=== PATIENT | male | born 1960 | race African-American/Black ===

== ENCOUNTER 2017-11-13 15:19 | Inpatient (IN) | payer MEDICAID ==
[~2017-11-13] VITALS: Ht 177.8 cm; Wt 88.5 kg
--- NOTE | 2017-11-13 15:30 | NUR ---
FRED SENT FROM [facility] FOR ELEVATED WBC AND LOW SODIUM. PATIENT PRESENTS ALTERED, TRACH DEPENDENT ON 5L OXYGEN VIA COOL AEROSOL. HAS FEVER OF 100.4 RECTALLY. PATIENT TACHYCARDIC. SAFETY AND COMFORT MEASURES IN PLACE. MD AT BEDSIDE FOR EVAL.
--- NOTE | 2017-11-13 15:50 | NUR ---
NEW IV STARTED ON LAC, 20 G WITH US GUIDANCE.
--- NOTE | 2017-11-13 15:55 | NUR ---
BLOOD DRAWN AND SENT TO LAB.
[2017-11-13] MEDS ORDERED: IV NS 0.9% 1,000 ML BAG IV ONE ×2 (16:00→17:00)
[2017-11-13 16:01] LABS: BASOPHILS # (AUTO) 0.1 /CMM (0.0-0.2); BASOPHILS % (AUTO) 0.2 % (0.0-2.0); EOSINOPHILS # (AUTO) 0.2 /CMM (0.0-0.7); EOSINOPHILS % (AUTO) 0.8 % (0.0-6.0); HEMATOCRIT 33 % (39-51); HEMOGLOBIN 11.5 g/dL (13.5-17.5); LYMPHOCYTES # (AUTO) 1.7 /CMM (0.8-4.8); LYMPHOCYTES % (AUTO) 6.4 % (20.0-44.0); MEAN CORPUSCULAR HEMOGLOBIN 29 PG (26.0-33.0); MEAN CORPUSCULAR HGB CONC 34 g/dl (31.0-36.0); MEAN CORPUSCULAR VOLUME 85 fL (80-96); MONOCYTES # (AUTO) 3.1 /CMM (0.1-1.30); MONOCYTES % (AUTO) 11.4 % (2.0-12.0); NEUTROPHILS % (AUTO) 81.2 % (43.0-81.0); PLATELET COUNT (AUTO) 527 /CMM (150-450); RDW COEFFICIENT OF VARIATION 15.2 (11.5-15.0); RED BLOOD CELL COUNT(AUTO) 3.92 MIL/uL (4.5-6.0); WHITE BLOOD COUNT (AUTO) 27.1 K/uL (4.3-11.0)
[2017-11-13 16:16] LABS: ALANINE AMINOTRANSFERASE 19 U/L (12-78); ALKALINE PHOSPHATASE 166 U/L (46-116); ASPARTATE AMINOTRANSFERASE 29 U/L (15-37); BILIRUBIN,DIRECT 0.2 mg/dL (0.0-0.2); BILIRUBIN,TOTAL 0.4 mg/dL (0.2-1.0); CALCIUM, SERUM 9.7 mg/dL (8.5-10.1); CARBON DIOXIDE 25 mmol/L (21-32); CHLORIDE 82 mmol/L (98-107); CREATININE 1.4 mg/dL (0.6-1.3); GLUCOSE 162 mg/dL (74-106); LIPASE 73 U/L (73-393); POTASSIUM 4.8 mmol/L (3.5-5.1); TOTAL PROTEIN, SERUM 8.9 g/dL (6.4-8.2); UREA NITROGEN, BLOOD 78 mg/dL (7-18)
[2017-11-13 16:17] LABS: SODIUM SERUM 119 mmol/L (136-145); TROPONIN I < 0.017 ng/mL (0.00-0.056)
[2017-11-13 17:00] LABS: APPEARANCE,URINE SL CLOUDY (CLEAR); BILIRUBIN,URINE NEGATIVE (NEGATIVE); BLOOD, URINE NEGATIVE Ery/uL (NEGATIVE); COLOR,URINE YELLOW (YELLOW); KETONES,URINE NEGATIVE (NEGATIVE); LEUKOCYTE ESTERASE ,URINE NEGATIVE (NEGATIVE); NITRITE, URINE NEGATIVE (NEGATIVE); PROTEIN,URINE 2+ mg/dl (NEGATIVE); UGLUCOSE NEGATIVE (NEGATIVE); UROBILINOGEN,URINE 0.2 EU/dL (0.2)
[2017-11-13] MEDS ORDERED: ACETAMINOPHEN 325 MG TABLET MC ONE (17:00)
[2017-11-13] MEDS ORDERED: PIPERACILLIN /TAZOBACTAM 3.375 G in IV D5W 50 ML IV ONE (17:00)
[2017-11-13] MEDS ORDERED: VANCOMYCIN 1 GM in IV D5W 250 ML IV ONE (17:00)
--- NOTE | 2017-11-13 17:00 | NUR ---
PER DR. GAVIN, BOLUS TOTAL OF 2500ML OF NS. ONLY 1500 ML MORE GIVEN ON TOP OF ORIGINAL 1L.
[2017-11-13] MEDS ORDERED: ACETAMINOPHEN ES 500 MG TABLET ONE (17:19)
[2017-11-13 17:23] LABS: BACTERIA,URINE None seen /HPF (None Seen); SQUAMOUS EPITHELIAL CELL,UR Rare /HPF (None Seen); WBC,URINE 0-2 /HPF (0-3)
[2017-11-13] MEDS ORDERED: ALBU2.5V38 IH ×2 (17:25)
[2017-11-13] MEDS ORDERED: IPRA0.2S9 IH ×2 (17:25)
[2017-11-13] MEDS ORDERED: ACET325T53 GT ×2 (17:25)
[2017-11-13] MEDS ORDERED: CLON0.3T PO (17:38)
[2017-11-13] MEDS ORDERED: MAGN400O6 GT (17:38)
[2017-11-13] MEDS ORDERED: VALP250S22 GT (17:38)
[2017-11-13] MEDS ORDERED: HEPA50007 SQ (17:38)
[2017-11-13] MEDS ORDERED: METO100T14 GT (17:38)
[2017-11-13] MEDS ORDERED: BISA10SU61 RC (17:38)
[2017-11-13] MEDS ORDERED: CALC-261 GT (17:38)
[2017-11-13] MEDS ORDERED: NA P133E RC (17:38)
[2017-11-13] MEDS ORDERED: INSU300I SQ (17:46)
[2017-11-13] MEDS ORDERED: CRAN3875 GT (17:46)
[2017-11-13] MEDS ORDERED: ESOM20CA GT (17:46)
[2017-11-13] MEDS ORDERED: MULT-213 GT (17:46)
[2017-11-13] MEDS ORDERED: HYDROMORPHONE INJ 0.5 MG/0.5 ML SYRINGE ONE (18:27)
--- NOTE | 2017-11-13 19:16 | NUR ---
REPORT GIVEN TO ZOHREH NICOLE FOR LIZETH.
--- NOTE | 2017-11-13 21:35 | NUR ---
DR GAVIN ON THE PHONE WITH GENERAL SURGERY DR ANDRIY ONOFRE
--- NOTE | 2017-11-13 21:39 | NUR ---
ONGOING ULTRASOUND AT BEDSIDE.
--- NOTE | 2017-11-13 21:50 | NUR ---
RECEIVED REPORT FROM ER NURSE ZOHREH, WILL RELAY TO PRIMARY NURSE
--- NOTE | 2017-11-13 21:50 | NUR ---
REPORT GIVEN TO HUMBERTO RN FOR ADMISSION AND LIZETH.
[2017-11-13 22:30] VITALS: BP 91/63
--- NOTE | 2017-11-13 22:30 | NUR ---
RN OPENING NOTE RECEIVED PATIENT FROM ER VIA GURNEY, SINUS TACHYCARDIA 156, OBTUNDED, ABLE TO CLOSE/OPEN EYES, BP 91/65, TEMPERATURE 98.6 F, SO2 100%, TRACH, ON FIO2 40%, OXUGEN 10 L/MIN, NO RESPIRATORY DISTRESS NOTED, ADMITTING DX: CHOLYSISTITIS, BS 175, PAGED DR MCKINLEY TO GET AN ORDER FOR SLIDING SCALE, ACCU CHECK, ALL PICTURES TAKEN AND PLACED IN THE CHART, LEFT FOREARM IV SITE NOTED, FLUSHES WELL NO S/S OF INFILTRATION, LAC MIDLINE IV SITE, NO S/S OF INFILTRATION NOTED, ON TELEMONITOR, ALL SAFETY MEASURES TAKEN , CALL LIGHT WITHIN REACH, ALL BELONGINGS WITHI REACH, SIDE RAILS UP X 2, BED ALARM ACTIVATED, WILL CONTINUE TO MONITOR PATIENT
--- NOTE | 2017-11-13 22:35 | NUR ---
TRANSFERRED PATIENT TO [facility] FLOOR VIA ALS PROTOCOL, NO INCIDENT NOTED.
[2017-11-13] MEDS ORDERED: HYDROMORPHONE 1 MG/1 ML DISP.SYRIN IV PRN (23:30)
[2017-11-13] MEDS ORDERED: IV 1/2NS 1000 ML 1,000 ML IV PRN (23:30)
[2017-11-13] MEDS ORDERED: ONDANSETRON HCL/PF 4 MG/2 ML VIAL IV PRN (23:30)
[2017-11-14] VITALS (7 sets, daily range): BP systolic 102–150; BP diastolic 52–74
[2017-11-14] MEDS ORDERED: PIPERACILLIN /TAZOBACTAM 3.375 G in IV D5W 100 ML IV ONE ×2
[2017-11-14] MEDS ORDERED: PIPERACILLIN /TAZOBACTAM 3.375 G VIAL IV ONE ×3 (00:33→05:22)
--- NOTE | 2017-11-14 03:32 | NUR ---
RN NOTE DR ONOFRE IS BY BEDSIDE, PLACED AN ORDER FOR CT SCAN GUIDED COLYSESTECTOMY, PER DR ONOFRE ENDORSE TO AM SHIFT TO OBTAIN CONSENT FOR PROCEDURE
[2017-11-14] MEDS ORDERED: DEXTROSE 50%-WATER 50 ML DISP.SYRIN IV PRN (04:30)
[2017-11-14] MEDS ORDERED: PIPERACILLIN /TAZOBACTAM 3.375 G in IV D5W 100 ML IV SCH ×3 (05:00)
[2017-11-14 05:24] LABS: EOSINOPHILS % (AUTO) 0.5 % (0.0-6.0); HEMATOCRIT 28 % (39-51); HEMOGLOBIN 9.5 g/dL (13.5-17.5); LYMPHOCYTES % (AUTO) 3.2 % (20.0-44.0); MEAN CORPUSCULAR HEMOGLOBIN 30 PG (26.0-33.0); MEAN CORPUSCULAR HGB CONC 34 g/dl (31.0-36.0); MEAN CORPUSCULAR VOLUME 87 fL (80-96); MONOCYTES % (AUTO) 10.5 % (2.0-12.0); NEUTROPHILS % (AUTO) 85.8 % (43.0-81.0); PLATELET COUNT (AUTO) 435 /CMM (150-450); RDW COEFFICIENT OF VARIATION 16.1 (11.5-15.0); RED BLOOD CELL COUNT(AUTO) 3.21 MIL/uL (4.5-6.0); WHITE BLOOD COUNT (AUTO) 20.9 K/uL (4.3-11.0)
[2017-11-14 05:25] LABS: EOSINOPHILS # (AUTO) 0.1 /CMM (0.0-0.7); LYMPHOCYTES # (AUTO) 0.7 /CMM (0.8-4.8); MONOCYTES # (AUTO) 2.2 /CMM (0.1-1.30); NEUTROPHILS # (AUTO) 17.9 /CMM (1.8-8.9)
[2017-11-14] MEDS: BLOOD SUGAR DIAGNOSTIC 1 EACH STRIP IN SCH ×4 (06:11→23:53)
--- NOTE | 2017-11-14 06:17 | NUR ---
RN NOTE BS 172, PATIENT IS NPO AND WILL BE HAVING PROCEDURE NO INSULIN AT THIS MOMENT, CHARGE NURSE IS AWARE
[2017-11-14 06:33] LABS: ALBUMIN 1.8 g/dL (3.4-5.0); BILIRUBIN,TOTAL 0.4 mg/dL (0.2-1.0); CREATININE 0.9 mg/dL (0.6-1.3); POTASSIUM 4.1 mmol/L (3.5-5.1); TOTAL PROTEIN, SERUM 7.9 g/dL (6.4-8.2)
--- NOTE | 2017-11-14 06:35 | NUR ---
RN CLOSING NOTE NO ACUTE CHANGES, STILL SINUS TACHYCARDIA WITH PVC'S AND PAC'S, DR ONOFRE SAW PATIENT EARLIER AND PLACED AN ORDER FOR CT GUIDED CHOLYCYCTECTOMY, PER DOCTOR JEMIMA ENDORSE TO OBTAIN CONSENTS TO AM SHIFT AND NOT TO WAKE UP FAMILY THIS EARLY, TRACH PATIENT, T-PIECE, 10 L/MIN , TOLERATES WELL, SO2 100%, AFEBRILE, SUCTIONED X 4, NON-VERBAL, FLAT AFFECT, CONTINIOUS FLUIDS 1/2 NS AT 100 ML/HR, LEFT UPPER MIDLINE, NO S/S OF INFECTION/INFILTRATION, LEFT FOREARM IV SITE, NO S/S OF INFECTION/INFILTRATION NOTED, ADMITTING DX CHOLECYSTITIS, WILL ENDORSE TO AM SHIFT TO OBTAIN CONSENTS, CHARGE NURSE IS AWARE, PENDING LACTIC ACID, BLOOD CULTURE, MRSA SWAB, WILL ENDORSE IT TO AM SHIFT, REMAINED NPO DURING SHIFT PER MD ORDER, ALL SAFETY MEASURES TAKEN, BED IN THE LOWEST POSITION, CALL LIGHT WITHIN REACH, ALL BELONGINGS WITHIN REACH, SIDE RAILS UP X 2, BED ALARM ACTIVATED FOR SAFETY, WILL ENDORSE TO AM SHIFT TO CONTINUE CARE
--- NOTE | 2017-11-14 07:30 | NUR ---
GERALDINE RN AM NOTES RECEIVED PT IN BED, NON VERBAL, PORTEX 8, ON COOL AEROSOL, 10 L, FIO2 40%, NOT IN ANY DISTRESS, TELEMETRY READS ST, PAC, PVC HR 150, NO SIGNS OF DISCOMFORT, LAC MIDLINE WITH 1/2 NS AT 100 ML/HR, SITE CLEAR, LEFT FA G 20 HL, FLUSHES WELL, SITE CLEAR, SEE NURSING FLOWSHEET FOR SKIN ISSUES. NPO FOR FOR CT GUIDED CHOLYCYCTECTOMY, UNABLE TO OBTAIN CONSENT FROM FAMILY. WILL SUCTION PRN, ALL SAFETY MEASURES IN PACE. BED IN THE LOWEST POSITION, CALL LIGHT WITHIN REACH, ALL BELONGINGS WITHIN REACH, SIDE RAILS UP X 2, BED ALARM ACTIVATED FOR SAFETY, WILL CONTINUE TO MONITOR.
[2017-11-14] MEDS ORDERED: IPRATROPIUM NEB FS 0.5 MG/2.5 ML AMPUL.NEB IH PRN (08:00)
[2017-11-14] MEDS ORDERED: BISACODYL SUPP (10 MG) 10 MG/SUPP.RECT SUPP.RECT RC PRN (08:00)
[2017-11-14] MEDS ORDERED: ALBUTEROL FS 2.5 MG/3 ML VIAL.NEB IH PRN (08:00)
[2017-11-14] MEDS: HEPARIN SODIUM, PORCINE 5000 UNITS/1 ML VIAL SQ SCH ×2 (09:00→21:00)
[2017-11-14] MEDS: METOPROLOL TARTRATE 50 MG TABLET PO SCH ×2 (09:00→22:23)
[2017-11-14] MEDS: VALPROIC ACID 250 MG/5 ML UDC GT SCH ×2 (09:00→22:21)
--- NOTE | 2017-11-14 09:01 | NUR ---
SPOKE WITH RN CLAUDINE AND RN SOON REGARDING CT DRAINAGE. AWAITING CONSENT FOR COMPUTED TOMOGRAPHY GUIDED PERCUTANEOUS DRAINAGE WITH CATHETER AND CONSENT FOR MODERATE SEDATION. SPOKE WITH NURSING PACKER DRIED BEEF, MODERATE SEDATION NURSE IS NOT AVAILABLE TODAY. WILL ATTEMPT TOMORROW MORNING, PENDING CONSENTS. PATIENT MUST BE NPO AFTER MIDNIGHT. HEPARIN IS ON HOLD.
--- NOTE | 2017-11-14 09:30 | NUR ---
BIOENGINEER NOTES DUE MEDS GIVEN.
[2017-11-14] MEDS: PANTOPRAZOLE 40 MG VIAL IV SCH (10:11)
--- NOTE | 2017-11-14 10:15 | NUR ---
BLANKBOOK STITCHING MACHINE OPERATOR NOTES PROCEUDRE NOT DONE. HIGH HEART RATE. DR. SETH AWARE.
[2017-11-14 10:24] LABS: ABG BASE EXCESS 2.8 mmol/L; ABG PCO2 38.7 mmHg (35.0-45.0); ABG PH 7.457 (7.350-7.450); ABG PO2 178.6 mmHg (75.0-100.0); AaDO2 459.6 mmHg; COHb 0.3 % (0.5-1.5); MetHb 0.5 % (0.0-1.5); O2Hb 98.2 % (94.0-97.0); SITE, ABG Right Radial; VENT MODE, BG C/A 95%
--- NOTE | 2017-11-14 10:30 | NUR ---
BRACER NOTES FOR CT GUIDED CHOLYCYCTECTOMY, CONSENT SIGNED BY 2 DOCTORS.
[2017-11-14] MEDS: PIPERACILLIN /TAZOBACTAM 3.375 G in IV NS 0.9% 50 ML IV SCH ×3 (12:47→23:53)
--- NOTE | 2017-11-14 12:54 | NUR ---
AGENCY SALES MANAGEMENT ASSISTANT NOTES ACCUCHECK DONE. BS 169 MG/DL. ADMINISTERED 3 UNITS HUM R PER SS. STARTED ZOSYN IV.
[2017-11-14] MEDS: INSULIN REGULAR, HUMAN 100 UNIT/ML 3 ML VIAL SQ PRN ×2 (12:55→17:31)
[2017-11-14] MEDS: CLONIDINE HCL 0.1 MG TABLET PO SCH ×2 (13:00→22:22)
[2017-11-14] MEDS ORDERED: ALBUTEROL FS 2.5 MG/3 ML VIAL.NEB IH SCH (13:30)
[2017-11-14] MEDS: IPRATROPIUM NEB FS 0.5 MG/2.5 ML AMPUL.NEB IH SCH ×2 (13:30→19:59)
[2017-11-14] MEDS ORDERED: METOPROLOL TARTRATE 50 MG TABLET PO ONE (14:30)
[2017-11-14] MEDS: Potassium Chloride 10 MEQ in IV NS 0.9% 1,000 ML IV PRN (15:17)
[2017-11-14] MEDS: ACETAMINOPHEN 650 MG/20.3 ML UDC GT PRN (17:19)
[2017-11-14] MEDS: DILTIAZEM HCL 30 MG TABLET PO SCH (17:21)
--- NOTE | 2017-11-14 17:31 | NUR ---
UNIX ADMINISTRATOR NOTES ACCUCHECK DONE. BS 199 MG/DL. ADMINISTERED 3 UNITS HUM R PER SS. STARTED ZOSYN IV.
--- NOTE | 2017-11-14 18:54 | NUR ---
MEMORY CARE DIRECTOR NOTES ALL NEEDS MET. TURNED AND REPOSITIONED. TEMP RECHECKED NOW 99.2. REMAINS NPO. PM CARE DONE. WILL ENDORSE TO NEXT SHIFT FOR LIZETH.
--- NOTE | 2017-11-14 19:30 | NUR ---
TELE/RN NOTES: RECEIVED PT. IN BED W/ HOB ELEVATED. NONVERBAL W/ TPIECE 10L W/ PORTEX 8. NO FACIAL GRIMACES OR MOANING NOTED. NO S/S OF RESPIRATORY DISTRESS NOTED. ON TELE MONITOR ST 137. HAS GT IN PLACE PATENT AND INTACT W/ NO RESIDUAL NOTED. HAS LAC MIDLINE PATENT AND INTACT W/ NO S/S OF INFECTION/INFILTRATION NOTED. PT. IS NPO FOR CT GUIDED CHOLECYSTECTOMY. WILL CONTINUE TO MONITOR.
--- NOTE | 2017-11-14 20:00 | NUR ---
TELE/RN NOTES: REPORT GIVEN TO NURSE BARRIOS TO LIZETH.
--- NOTE | 2017-11-14 20:30 | NUR ---
RN INITIAL NOTES RECEIVED PT IN BED, NON VERBAL, PORTEX 8, ON COOL AEROSOL, 10 L, FIO2 40%, NOT IN ANY DISTRESS, TELEMETRY READS ST 130S , NO SIGNS OF DISCOMFORT, LAC MIDLINE WITH IV FLUID INFUSING, SITE CLEAR, LEFT FA G 20 HL, FLUSHES WELL, SITE CLEAR . NPO FOR FOR CT GUIDED CHOLECYSTECTOMY, CONSENT IN CHARD. ALL SAFETY MEASURES IN PACE. BED IN THE LOWEST POSITION, CALL LIGHT WITHIN REACH, ALL BELONGINGS WITHIN REACH, SIDE RAILS UP X 2, WILL CONT TO MONITOR.
[2017-11-14] MEDS: INSULIN GLARGINE, 100 UNIT/ML CARTRIDGE SQ SCH (22:00)
[2017-11-15] VITALS (7 sets, daily range): BP systolic 94–147; BP diastolic 55–78
[2017-11-15] MEDS: DILTIAZEM HCL 30 MG TABLET PO SCH ×5 (00:03→23:53)
[2017-11-15] MEDS: IPRATROPIUM NEB FS 0.5 MG/2.5 ML AMPUL.NEB IH SCH ×4 (01:10→19:39)
[2017-11-15] MEDS: CLONIDINE HCL 0.1 MG TABLET PO SCH ×3 (05:00→22:01)
[2017-11-15] MEDS: PIPERACILLIN /TAZOBACTAM 3.375 G in IV NS 0.9% 50 ML IV SCH ×4 (06:00→23:49)
[2017-11-15] MEDS: BLOOD SUGAR DIAGNOSTIC 1 EACH STRIP IN SCH ×4 (06:11→23:49)
[2017-11-15] MEDS: INSULIN REGULAR, HUMAN 100 UNIT/ML 3 ML VIAL SQ PRN ×4 (06:13→23:51)
--- NOTE | 2017-11-15 06:42 | NUR ---
RN CLOSING NOTES PT IN BED, NON VERBAL, PORTEX 8, ON COOL AEROSOL, 15 L, FIO2 40%, NOT IN ANY DISTRESS, TELEMETRY READS ST 130S , NO SIGNS OF DISCOMFORT, LAC MIDLINE WITH IV FLUID INFUSING, SITE CLEAR, LEFT FA G 20 HL, FLUSHES WELL, SITE CLEAR . NPO FOR FOR CT GUIDED CHOLECYSTECTOMY, CONSENT IN CHARD. ALL SAFETY MEASURES IN PACE. BED IN THE LOWEST POSITION, CALL LIGHT WITHIN REACH, ALL BELONGINGS WITHIN REACH, SIDE RAILS UP X 2, WILL ENDORSE TO AM RN.
[2017-11-15] MEDS ORDERED: FENTANYL PF 250MCG/5ML AMPUL IV ONE (08:30)
[2017-11-15] MEDS ORDERED: MIDAZOLAM HCL 5MG/ML VIAL 25 MG/5 ML VIAL IV ONE (08:30)
[2017-11-15] MEDS ORDERED: NALOXONE PREFILLED SYRINGE 2 MG/2 ML SYRINGE IV ONE (08:30)
[2017-11-15] MEDS: METOPROLOL TARTRATE 50 MG TABLET PO SCH ×2 (09:00→22:00)
[2017-11-15] MEDS ORDERED: CLONIDINE HCL 0.1 MG TABLET PO PRN (09:00)
[2017-11-15] MEDS: HEPARIN SODIUM, PORCINE 5000 UNITS/1 ML VIAL SQ SCH ×2 (09:00→22:03)
[2017-11-15] MEDS ORDERED: LIDOCAINE HCL/PF 1% 30 ML SDV ONE (09:43)
--- NOTE | 2017-11-15 10:43 | NUR ---
WOUND CARE CONSULT: PT OFF UNIT AT THIS TIME. PT FOLLOWED BY GENERAL SURGERY. WILL SEE PT PT CONDITION PERMITS.
--- NOTE | 2017-11-15 11:30 | NUR ---
RN NOTE PT CAME FROM DRAINAGE TUBE INSERTION IN GALLBLADDER, TOLERATED PROCEDURE WELL, NO BLEEDING NOTED, DRAINAGE IS MINIMAL, SEROSANGUINEOUS COLOR, VS STABLE. WILL MONITOR PT CLOSELY.
[2017-11-15 11:46] LABS: BASOPHILS # (AUTO) 0.1 /CMM (0.0-0.2); BASOPHILS % (AUTO) 0.3 % (0.0-2.0); EOSINOPHILS % (AUTO) 0.1 % (0.0-6.0); HEMATOCRIT 24 % (39-51); HEMOGLOBIN 8.1 g/dL (13.5-17.5); LYMPHOCYTES % (AUTO) 10.9 % (20.0-44.0); MEAN CORPUSCULAR HEMOGLOBIN 29 PG (26.0-33.0); MEAN CORPUSCULAR HGB CONC 34 g/dl (31.0-36.0); MEAN CORPUSCULAR VOLUME 87 fL (80-96); MONOCYTES # (AUTO) 3.2 /CMM (0.1-1.30); MONOCYTES % (AUTO) 17.4 % (2.0-12.0); NEUTROPHILS # (AUTO) 12.9 /CMM (1.8-8.9); NEUTROPHILS % (AUTO) 71.3 % (43.0-81.0); PLATELET COUNT (AUTO) 449 /CMM (150-450); RDW COEFFICIENT OF VARIATION 16.2 (11.5-15.0); WHITE BLOOD COUNT (AUTO) 18.1 K/uL (4.3-11.0)
[2017-11-15 12:04] LABS: ALBUMIN 1.6 g/dL (3.4-5.0); BILIRUBIN,TOTAL 0.4 mg/dL (0.2-1.0); CREATININE 1.5 mg/dL (0.6-1.3); POTASSIUM 4.1 mmol/L (3.5-5.1); TOTAL PROTEIN, SERUM 7.1 g/dL (6.4-8.2)
[2017-11-15] MEDS: VALPROIC ACID 250 MG/5 ML UDC GT SCH ×2 (12:15→22:00)
[2017-11-15] MEDS: PANTOPRAZOLE 40 MG VIAL IV SCH (12:15)
[2017-11-15 12:48] LABS: BAND % (MANUAL) 8 % (0.0-5.0); LYMPHOCYTES % (MANUAL) 18 % (16-48); MONOCYTES % (MANUAL) 16 % (0-11.0); MYELOCYTES % 1 % (0-0); NEUTROPHILS % (MANUAL) 57 (42-76)
[2017-11-15] MEDS: GLYTROL 1,000 ML BAG GT PRN (15:42)
[2017-11-15] MEDS: Potassium Chloride 10 MEQ in IV NS 0.9% 1,000 ML IV PRN (17:53)
[2017-11-15] MEDS: PROSOURCE / PROSTAT (PYXIS) 30 ML UDC GT SCH (17:54)
--- NOTE | 2017-11-15 20:00 | NUR ---
RN INITIAL NOTES RECEIVED PT IN BED, NON VERBAL, PORTEX 8, ON COOL AEROSOL, 10 L, FIO2 40%, NOT IN ANY DISTRESS, TELEMETRY READS ST 130S , NO SIGNS OF DISCOMFORT, LAC MIDLINE WITH IV FLUID INFUSING, SITE CLEAR, LEFT FA G 20 HL, FLUSHES WELL, SITE CLEAR . GT FEEDING GLYTROL 25 ML/HR . ALL SAFETY MEASURES IN PLACE. BED IN THE LOWEST, LOCKED POSITION, CALL LIGHT WITHIN REACH, SIDE RAILS UP X 2, WILL CONT TO MONITOR.
[2017-11-15] MEDS: INSULIN GLARGINE, 100 UNIT/ML CARTRIDGE SQ SCH (22:12)
[2017-11-16] VITALS: BP 111/72
[2017-11-16] MEDS: IPRATROPIUM NEB FS 0.5 MG/2.5 ML AMPUL.NEB IH SCH ×4 (01:13→19:50)
--- NOTE | 2017-11-16 02:02 | NUR ---
RT NOTES. CHANGED PT TO PORTEX 8 WITH CUFF FOR PROCEDURE PER MD ORDER. PLACED PT ON [facility]. VENT ON NOTED SETTINGS PER MD ORDER. NO DISTRESS NOTED DURING PROCEDURE. RN/ RT AT BEDSIDE FOR DURATION OF PROCEDURE. NO ADVERSE EFFECTS NOTED. REPLACED CUFFED TRACH WITH UNCUFFED TRACH POST PROCEDURE AND PLACED BACK ON ORIGINAL AEROSOL SETTINGS. NO ADVERSE EFFECTS NOTED. WILL CONT TO MONITOR FOR REST OF SHIFT. Addendum: 11/16/17 at 0206 by ADRIANA QUINTERO RT Amended: Links added.
[2017-11-16 04:00] VITALS: BP 119/80
[2017-11-16] MEDS: PIPERACILLIN /TAZOBACTAM 3.375 G in IV NS 0.9% 50 ML IV SCH ×4 (05:23→23:17)
[2017-11-16] MEDS: CLONIDINE HCL 0.1 MG TABLET PO SCH ×3 (05:26→21:39)
[2017-11-16] MEDS: DILTIAZEM HCL 30 MG TABLET PO SCH ×2 (05:26→11:33)
[2017-11-16] MEDS: BLOOD SUGAR DIAGNOSTIC 1 EACH STRIP IN SCH ×4 (05:33→23:25)
[2017-11-16] MEDS: INSULIN REGULAR, HUMAN 100 UNIT/ML 3 ML VIAL SQ PRN ×3 (05:35→17:58)
--- NOTE | 2017-11-16 06:00 | NUR ---
RN CLOSING NOTES NO CHANGE IN PT CONDITION OVER SHIFT, PT IN BED, NON VERBAL, PORTEX 8, ON COOL AEROSOL, 10 L, FIO2 40%, NOT IN ANY DISTRESS, TELEMETRY READS ST 130S , NO SIGNS OF DISCOMFORT, LAC MIDLINE WITH IV FLUID INFUSING, SITE CLEAR, LEFT FA G 20 HL, FLUSHES WELL, SITE CLEAR . GT FEEDING GLYTROL 35 ML/HR . ALL SAFETY MEASURES IN PLACE. BED IN THE LOWEST, LOCKED POSITION, CALL LIGHT WITHIN REACH, SIDE RAILS UP X 2, WILL ENDORSE TO AM RN.
[2017-11-16 06:22] LABS: BASOPHILS # (AUTO) 0.1 /CMM (0.0-0.2); BASOPHILS % (AUTO) 0.3 % (0.0-2.0); HEMATOCRIT 26 % (39-51); HEMOGLOBIN 8.5 g/dL (13.5-17.5); LYMPHOCYTES # (AUTO) 2.2 /CMM (0.8-4.8); MEAN CORPUSCULAR HEMOGLOBIN 29 PG (26.0-33.0); MEAN CORPUSCULAR HGB CONC 33 g/dl (31.0-36.0); MEAN CORPUSCULAR VOLUME 88 fL (80-96); MONOCYTES # (AUTO) 1.5 /CMM (0.1-1.30); NEUTROPHILS # (AUTO) 14.5 /CMM (1.8-8.9); NEUTROPHILS % (AUTO) 79.7 % (43.0-81.0); PLATELET COUNT (AUTO) 475 /CMM (150-450); RDW COEFFICIENT OF VARIATION 16.3 (11.5-15.0); RED BLOOD CELL COUNT(AUTO) 2.89 MIL/uL (4.5-6.0); WHITE BLOOD COUNT (AUTO) 18.3 K/uL (4.3-11.0)
[2017-11-16 06:35] LABS: ALBUMIN 1.6 g/dL (3.4-5.0); BILIRUBIN,TOTAL 0.4 mg/dL (0.2-1.0); CALCIUM, SERUM 8.3 mg/dL (8.5-10.1); CREATININE 2.1 mg/dL (0.6-1.3); POTASSIUM 4.5 mmol/L (3.5-5.1); TOTAL PROTEIN, SERUM 7.2 g/dL (6.4-8.2)
--- NOTE | 2017-11-16 07:55 | NUR ---
TRAIN OPERATOR OPENING NOTE PATIENT IS OBTUNDED, RESTING COMFORTABLY IN BED. NO FACIAL GRIMACING NOTED FOR PAIN. NO SOB OR DISTRESS NOTED. ON T-PIECE WITH COOL AEROSOL AT 5L/MIN. IV INTACT AND PATENT NO REDNESS OR SWELLING NOTED WITH IV FLUIDS RUNNING AT 100 ML/HR TOLERATING WELL. G-TUBE PRESENT NO ISSUES NOTED, FLUSHES WELL. HAS DRAIN FROM S/P CHOLECYSTOSTOMY. WILL CONTINUE TO MONITOR THROUGHOUT SHIFT
[2017-11-16 08:00] VITALS: BP 114/76
[2017-11-16] MEDS: PANTOPRAZOLE 40 MG VIAL IV SCH (08:29)
[2017-11-16] MEDS: VALPROIC ACID 250 MG/5 ML UDC GT SCH ×2 (08:29→21:38)
[2017-11-16] MEDS: ASCORBIC ACID 500 MG TABLET GT SCH (08:29)
[2017-11-16] MEDS: PROSOURCE / PROSTAT (PYXIS) 30 ML UDC GT SCH ×2 (08:29→17:51)
[2017-11-16] MEDS: ZINC SULFATE 220 MG CAPSULE PO SCH (08:29)
[2017-11-16] MEDS: METOPROLOL TARTRATE 50 MG TABLET PO SCH ×2 (08:30→21:38)
[2017-11-16] MEDS: HEPARIN SODIUM, PORCINE 5000 UNITS/1 ML VIAL SQ SCH ×2 (08:33→21:40)
[2017-11-16] MEDS: Potassium Chloride 10 MEQ in IV NS 0.9% 1,000 ML IV PRN ×2 (11:15→23:17)
[2017-11-16 12:00] VITALS: BP 117/75
[2017-11-16 16:32] VITALS: BP 111/69
--- NOTE | 2017-11-16 18:34 | NUR ---
SECONDARY HISTORY TEACHER CLOSING NOTE PATIENT IS OBTUNDED IN BED, RESTING COMFORTABLY. NO FACIAL GRIMACING NOTED FOR PAIN. NO SOB OR DISTRESS NOTED. CALL LIGHT WITHIN REACH AT ALL TIMES. SAFETY MEASURES IMPLEMENTED. ALL DUE MEDICATIONS GIVEN ORDERED BY MD. ALL NURSING CARE NEEDS ATTENDED TO. G-TUBE PATENT, FLUSHES WELL WITH TUBE FEEDING RUNNING AT 45 ML/HR, NO RESIDUAL NOTED. IV INTACT AND PATENT WITH IV FLUIDS RUNNING AT THIS TIME. TELE [id number]. WILL ENDORSE TO HEAD OF DIGITAL FOR LIZETH
[2017-11-16 20:00] VITALS: BP 114/66
--- NOTE | 2017-11-16 20:00 | NUR ---
RN INITIAL NOTE RECEIVED PATIENT OBTUNDED IN BED, RESTING COMFORTABLY. NO FACIAL GRIMACING NOTED FOR PAIN. NO SOB OR DISTRESS NOTED. CALL LIGHT WITHIN REACH AT ALL TIMES. SAFETY MEASURES IMPLEMENTED. G-TUBE PATENT, FLUSHES WELL WITH TUBE FEEDING RUNNING AT 45 ML/HR, NO RESIDUAL NOTED. IV INTACT AND PATENT WITH IV FLUIDS RUNNING AT THIS TIME. TELE [id number]. WILL CONT TO MONITOR.
[2017-11-16] MEDS: INSULIN GLARGINE, 100 UNIT/ML CARTRIDGE SQ SCH (21:40)
[2017-11-17] VITALS (7 sets, daily range): BP systolic 112–142; BP diastolic 68–79
[2017-11-17] MEDS: IPRATROPIUM NEB FS 0.5 MG/2.5 ML AMPUL.NEB IH SCH ×4 (01:23→19:53)
[2017-11-17] MEDS: CLONIDINE HCL 0.1 MG TABLET PO SCH (04:37)
[2017-11-17] MEDS: PIPERACILLIN /TAZOBACTAM 3.375 G in IV NS 0.9% 50 ML IV SCH (05:26)
[2017-11-17] MEDS: BLOOD SUGAR DIAGNOSTIC 1 EACH STRIP IN SCH ×3 (05:26→17:59)
[2017-11-17] MEDS: INSULIN REGULAR, HUMAN 100 UNIT/ML 3 ML VIAL SQ PRN ×3 (05:35→18:04)
--- NOTE | 2017-11-17 06:12 | NUR ---
RN CLOSING NOTE NO CHANGE IN PTS CONDITION OVER NIGHT, PATIENT OBTUNDED IN BED, RESTING COMFORTABLY. NO FACIAL GRIMACING NOTED FOR PAIN. NO SOB OR DISTRESS NOTED. CALL LIGHT WITHIN REACH AT ALL TIMES. SAFETY MEASURES IMPLEMENTED. G-TUBE PATENT, FLUSHES WELL WITH TUBE FEEDING RUNNING, SETTING CHANGED TO 55 ML/HR @2300 AND THEN TO 65@ 0630 ,NO RESIDUAL NOTED. IV INTACT AND PATENT WITH IV FLUIDS RUNNING AT THIS TIME. TELE [id number]. SURGICAL DRAIN OUT PUT 80CC.ALL NEEDS ATTENDED TO. WILL ENDORSE TO AM RN.
[2017-11-17 07:12] LABS: BASOPHILS % (AUTO) 0.3 % (0.0-2.0); EOSINOPHILS % (AUTO) 0.2 % (0.0-6.0); HEMATOCRIT 23 % (39-51); HEMOGLOBIN 7.8 g/dL (13.5-17.5); LYMPHOCYTES # (AUTO) 2.5 /CMM (0.8-4.8); LYMPHOCYTES % (AUTO) 14.6 % (20.0-44.0); MEAN CORPUSCULAR HEMOGLOBIN 30 PG (26.0-33.0); MEAN CORPUSCULAR HGB CONC 34 g/dl (31.0-36.0); MEAN CORPUSCULAR VOLUME 87 fL (80-96); MONOCYTES # (AUTO) 1.6 /CMM (0.1-1.30); MONOCYTES % (AUTO) 9.4 % (2.0-12.0); NEUTROPHILS # (AUTO) 12.8 /CMM (1.8-8.9); NEUTROPHILS % (AUTO) 75.5 % (43.0-81.0); PLATELET COUNT (AUTO) 498 /CMM (150-450); RDW COEFFICIENT OF VARIATION 16.4 (11.5-15.0); RED BLOOD CELL COUNT(AUTO) 2.65 MIL/uL (4.5-6.0)
[2017-11-17 07:24] LABS: ALBUMIN 1.5 g/dL (3.4-5.0); BILIRUBIN,TOTAL 0.4 mg/dL (0.2-1.0); CALCIUM, SERUM 8.1 mg/dL (8.5-10.1); CREATININE 3.8 mg/dL (0.6-1.3); POTASSIUM 5.3 mmol/L (3.5-5.1); TOTAL PROTEIN, SERUM 7.1 g/dL (6.4-8.2)
--- NOTE | 2017-11-17 07:30 | NUR ---
ALUMNI RELATIONS MANAGER INITIAL NOTES RECEIVED PATIENT IN BED, NO SIGNS OF DISTRESS, OBTUNDED WITH EYES OPEN ON T-PIECE TO COOL ARESOL, TOLERATING WELL SUCTIONED WITH WHITE LIGHT GREEN SECRETIONS ON TELE MONITORING SRM IN DIAPER, G-TUBE FEEDINGS GLYTROL 65 ML/HR, NO RESIDUAL NOTED, IV ALICE MIDLINE, CLEAN AND INTACT, FLUIDS INFUSING, BED IN LOW AND LOCKED POSITION WILL CONTINUE TO MONITOR.
[2017-11-17] MEDS: METOPROLOL TARTRATE 50 MG TABLET PO SCH ×2 (08:57→21:47)
[2017-11-17] MEDS: VALPROIC ACID 250 MG/5 ML UDC GT SCH ×2 (08:57→21:47)
[2017-11-17] MEDS: PANTOPRAZOLE 40 MG VIAL IV SCH (08:57)
[2017-11-17] MEDS: ASCORBIC ACID 500 MG TABLET GT SCH (08:57)
[2017-11-17] MEDS: ZINC SULFATE 220 MG CAPSULE PO SCH (08:57)
[2017-11-17] MEDS: PROSOURCE / PROSTAT (PYXIS) 30 ML UDC GT SCH ×2 (08:58→17:59)
[2017-11-17] MEDS: HEPARIN SODIUM, PORCINE 5000 UNITS/1 ML VIAL SQ SCH ×2 (09:00→21:50)
[2017-11-17] MEDS ORDERED: SODIUM POLYSTYRENE SULFONATE 15 G/60 ML BOTTLE PO ONE (11:30)
[2017-11-17] MEDS: IV 1/2NS 1000 ML 1,000 ML IV PRN ×2 (12:31→23:56)
[2017-11-17] MEDS: PIPERACILLIN /TAZOBACTAM 2.25 G in IV NS 0.9% 50 ML IV SCH ×3 (13:29→23:49)
--- NOTE | 2017-11-17 13:56 | NUR ---
PHONE MANAGER NOTES LEFT MESSAGE FOR FAMILY FOR CONSENT FOR BLOOD TRANSFUSION.
--- NOTE | 2017-11-17 18:34 | NUR ---
WOODYARD CRANE OPERATOR NOTES PATIENT RESTING IN BED, NO SIGNS OF DISTRESS, ALL NEEDS MET, TURNED AND REPOSITIONED Q2H, WILL ENDORSE TO NURSING EDUCATION CONSULTANT FOR CONTINUITY OF CARE.
--- NOTE | 2017-11-17 19:47 | NUR ---
RN NOTE RECEIVED PATIENT IN THE BED, OBTUNDED, OPEN EYES, DX ACUTE CHOLYCYSTITIS, T-PIECE, PORTEX 8, FIO2 28%, CHOLESTAMY DRAIN INTACT, ON TELEMONITOR, LEFT UPPER MIDLINE WITH ONGOING IV, ONGOING G-TUBE FEEDING GLYTROL 75 ML/HR, 0 RESIDUAL, TOLERATES WELL, ALL SAFETY MEASURES TAKEN, BED IN THE LOWEST POSITION, CALL LIGHT WITHIN REACH, SIDE RAILS UP X 2, WILL CONTINUE TO MONITOR PATIENT
[2017-11-17] MEDS: GLYTROL 1,000 ML BAG GT PRN (21:51)
--- NOTE | 2017-11-17 22:00 | NUR ---
RN NOTE CALLED FAMILY TO OBTAIN CONSENT FOR BLOOD TRANSFUSION, LEFT MESSAGE, WAITING TO CALL BACK, DR BRASWELL IS AWARE
[2017-11-17] MEDS: INSULIN GLARGINE, 100 UNIT/ML CARTRIDGE SQ SCH (22:33)
--- NOTE | 2017-11-17 23:44 | NUR ---
RN NOTE PATIENT WILL BE UNDER CARE OF KRYSTYNA RN, REPORT PROVIDED, ENDORSE TO TAKE PICTURE, BS 0000, AND IV ANTIBIOTIC
[2017-11-18] VITALS (11 sets, daily range): BP systolic 102–147; BP diastolic 58–91
[2017-11-18] MEDS: BLOOD SUGAR DIAGNOSTIC 1 EACH STRIP IN SCH ×5 (00:04→23:27)
[2017-11-18] MEDS: INSULIN REGULAR, HUMAN 100 UNIT/ML 3 ML VIAL SQ PRN ×3 (00:12→12:12)
--- NOTE | 2017-11-18 00:57 | NUR ---
RN NOTES RECEIVED PATIENT FROM JAIME NICOLE, IN BED WITH EYES OPEN. NO DISTRESS NOTED. BREATHING EVEN AND UNLABORED. COOL AEROSOL WELL TOLERATED. NO PHYSICAL MANIFESTATION OF PAIN OR DISCOMFORT. FOR BLOOD TRANSFUSION, WAITING FOR CONSENT. VITAL SIGNS WNL. WILL CONTINUE TO MONITOR.
[2017-11-18] MEDS: IPRATROPIUM NEB FS 0.5 MG/2.5 ML AMPUL.NEB IH SCH ×4 (02:04→19:41)
[2017-11-18] MEDS: PIPERACILLIN /TAZOBACTAM 2.25 G in IV NS 0.9% 50 ML IV SCH ×3 (05:31→21:36)
--- NOTE | 2017-11-18 06:08 | NUR ---
RN NOTES IN BED WITH EYES OPEN, NO TRACKING. NO DISTRESS NOTED. BREATHING EVEN AND UNLABORED. NO PHYSICAL MANIFESTATION OF PAIN OR DISCOMFORT. WAITING FOR CONSENT FOR BLOOD TRANSFUSION. WILL ENDORSE TO AM SHIFT FOR CONTINUITY OF CARE
[2017-11-18 06:56] LABS: BASOPHILS # (AUTO) 0.1 /CMM (0.0-0.2); BASOPHILS % (AUTO) 0.3 % (0.0-2.0); EOSINOPHILS # (AUTO) 0.2 /CMM (0.0-0.7); EOSINOPHILS % (AUTO) 1.1 % (0.0-6.0); HEMATOCRIT 24 % (39-51); LYMPHOCYTES # (AUTO) 2.3 /CMM (0.8-4.8); LYMPHOCYTES % (AUTO) 12.5 % (20.0-44.0); MEAN CORPUSCULAR HEMOGLOBIN 29 PG (26.0-33.0); MEAN CORPUSCULAR HGB CONC 33 g/dl (31.0-36.0); MEAN CORPUSCULAR VOLUME 88 fL (80-96); MONOCYTES # (AUTO) 1.8 /CMM (0.1-1.30); MONOCYTES % (AUTO) 9.9 % (2.0-12.0); NEUTROPHILS # (AUTO) 13.8 /CMM (1.8-8.9); NEUTROPHILS % (AUTO) 76.2 % (43.0-81.0); PLATELET COUNT (AUTO) 536 /CMM (150-450); RDW COEFFICIENT OF VARIATION 17.1 (11.5-15.0); RED BLOOD CELL COUNT(AUTO) 2.73 MIL/uL (4.5-6.0); WHITE BLOOD COUNT (AUTO) 18.1 K/uL (4.3-11.0)
[2017-11-18 07:50] LABS: CALCIUM, SERUM 8.3 mg/dL (8.5-10.1); CREATININE 5.4 mg/dL (0.6-1.3)
[2017-11-18 08:31] LABS: POTASSIUM 6.2 mmol/L (3.5-5.1)
[2017-11-18] MEDS: HEPARIN SODIUM, PORCINE 5000 UNITS/1 ML VIAL SQ SCH (09:00)
[2017-11-18 09:16] LABS: EOSINOPHILS % (MANUAL) 1 % (0-4); LYMPHOCYTES % (MANUAL) 15 % (16-48); MONOCYTES % (MANUAL) 9 % (0-11.0)
[2017-11-18 09:17] LABS: BAND % (MANUAL) 2 % (0.0-5.0); NEUTROPHILS % (MANUAL) 73 (42-76)
[2017-11-18] MEDS ORDERED: SODIUM POLYSTYRENE SULFONATE 15 G/60 ML BOTTLE PO ONE (09:30)
[2017-11-18] MEDS: VALPROIC ACID 250 MG/5 ML UDC GT SCH ×2 (09:48→21:36)
[2017-11-18] MEDS: PROSOURCE / PROSTAT (PYXIS) 30 ML UDC GT SCH ×2 (09:48→16:45)
[2017-11-18] MEDS: METOPROLOL TARTRATE 50 MG TABLET PO SCH ×2 (09:49→21:00)
[2017-11-18] MEDS: PANTOPRAZOLE 40 MG VIAL IV SCH (09:49)
[2017-11-18] MEDS: ASCORBIC ACID 500 MG TABLET GT SCH (09:49)
[2017-11-18] MEDS: ZINC SULFATE 220 MG CAPSULE PO SCH (09:49)
[2017-11-18 10:04] LABS: HEMOGLOBIN 7.6 g/dL (13.5-17.5)
[2017-11-18] MEDS: IV 1/2NS 1000 ML 1,000 ML IV PRN (12:01)
[2017-11-18 12:14] LABS: ABG BASE EXCESS -8.5 mmol/L; ABG OXYGEN SATURATION 97.3 % (92.0-98.5); ABG PCO2 38.2 mmHg (35.0-45.0); ABG PO2 108.3 mmHg (75.0-100.0); AaDO2 46.3 mmHg; COHb 0.3 % (0.5-1.5); MetHb 0.8 % (0.0-1.5); O2Hb 96.2 % (94.0-97.0); VENT MODE, BG 28 % C/A
[2017-11-18 14:33] LABS: BASOPHILS % (AUTO) 0.2 % (0.0-2.0); EOSINOPHILS # (AUTO) 0.2 /CMM (0.0-0.7); HEMATOCRIT 24 % (39-51); HEMOGLOBIN 7.9 g/dL (13.5-17.5); LYMPHOCYTES # (AUTO) 1.8 /CMM (0.8-4.8); MEAN CORPUSCULAR HEMOGLOBIN 29 PG (26.0-33.0); MEAN CORPUSCULAR HGB CONC 34 g/dl (31.0-36.0); MEAN CORPUSCULAR VOLUME 88 fL (80-96); MONOCYTES # (AUTO) 1.5 /CMM (0.1-1.30); MONOCYTES % (AUTO) 8.7 % (2.0-12.0); NEUTROPHILS # (AUTO) 14.3 /CMM (1.8-8.9); NEUTROPHILS % (AUTO) 80.1 % (43.0-81.0); PLATELET COUNT (AUTO) 503 /CMM (150-450); RDW COEFFICIENT OF VARIATION 16.9 (11.5-15.0); RED BLOOD CELL COUNT(AUTO) 2.68 MIL/uL (4.5-6.0); WHITE BLOOD COUNT (AUTO) 17.9 K/uL (4.3-11.0)
[2017-11-18 14:41] LABS: APPEARANCE,URINE CLEAR (CLEAR); BILIRUBIN,URINE NEGATIVE (NEGATIVE); BLOOD, URINE 2+ Ery/uL (NEGATIVE); COLOR,URINE YELLOW (YELLOW); KETONES,URINE NEGATIVE (NEGATIVE); LEUKOCYTE ESTERASE ,URINE NEGATIVE (NEGATIVE); NITRITE, URINE NEGATIVE (NEGATIVE); PROTEIN,URINE NEGATIVE (NEGATIVE); UGLUCOSE NEGATIVE (NEGATIVE); UROBILINOGEN,URINE 0.2 EU/dL (0.2)
[2017-11-18 14:50] LABS: BACTERIA,URINE Rare /HPF (None Seen)
[2017-11-18 14:51] LABS: SQUAMOUS EPITHELIAL CELL,UR Few /HPF (None Seen)
[2017-11-18 15:00] LABS: ALBUMIN 1.5 g/dL (3.4-5.0); BILIRUBIN,DIRECT 0.2 mg/dL (0.0-0.2); BILIRUBIN,TOTAL 0.3 mg/dL (0.2-1.0); CALCIUM, SERUM 8.5 mg/dL (8.5-10.1); CREATININE 4.6 mg/dL (0.6-1.3); MAGNESIUM 3.6 mg/dL (1.8-2.4); PHOSPHORUS 4.5 mg/dL (2.5-4.9); POTASSIUM 5.7 mmol/L (3.5-5.1)
[2017-11-18 15:00] LABS: CREATININE, URINE 40.4 MG/DL (30.0-125.0); URINE TOTAL PROTEIN 14.1 mg/dL (0-11.9)
[2017-11-18 16:33] LABS: EOSINOPHIL,URINE None Seen
[2017-11-18] MEDS: ACETAMINOPHEN 650 MG/20.3 ML UDC GT PRN (16:45)
--- NOTE | 2017-11-18 18:51 | NUR ---
Cuffless trach changed to cuffed trach per Dr Abhishek RN aware. Addendum: 11/18/17 at 1852 by ARIANA COTE RT Amended: Links added.
--- NOTE | 2017-11-18 19:30 | NUR ---
RN CLOSING NOTE PT HAD BLEEDING IN THE MORNING, TRACH SECRETIONS BLOODY, G TUBE RESIDUAL BLOODY WELL, (RED/BROWNISH COLOR) OF 460 ML IN AM AND 300 ML AROUND 1600, OFF OF GTUBE FEEDING, BG MONITORED, VS STABLE, EXCEPT FOR RESPIRATIONS. ABG DONE, PT CHANGE TO VENT FROM COOL AEROSOL. CT ADB SCAN POSTPONED UNTIL TOMORROW. BLOOD TRANSFUSION STARTED, HD WAS STOPPED DUE TO PORT MALFUNCTION. PT HAD 2 LARGE BM, KYEXALATE WAS GIVEN FOR HYPERKALEMIA. PARK CATHETER WAS INSERTED AND URINE OUTPUT WAS 3400 FOR THE DAY SHIFT. WILL ENDORSE TO PATHOLOGIST ASSISTANT
--- NOTE | 2017-11-18 19:41 | NUR ---
RT NOTE PATIENT REMAINS IN STABLE CONDITION ON MECHANICAL VENTILATOR. NO SIGNS OF RESPIRATORY DISTRESS NOTED. TRACH IS PATENT AND SECURE. MECHANICAL VENT IS PLUGGED INTO RED OUTLET. ALARMS ARE SET AND AUDIBLE. AMBU BAG IS AT PATIENT BEDSIDE. WILL CONTINUE TO MONITOR. Addendum: 11/19/17 at 0128 by ROSARIO RUSHING RT Amended: Links added.
--- NOTE | 2017-11-18 20:00 | NUR ---
RN NOTE NO BLOOD TRANSFUSION REACTION NOTED, TOLERATES WELL, VITAL SIGNS DOCUMENTED, NO CHILLS OR FEVER, NO SOB NOTED,
--- NOTE | 2017-11-18 20:06 | NUR ---
RN NOTE RECEIVED PATIENT IN THE BED, AWAKE, OBTUNDED, OPEN EYES, ONGOING BLOOD TRANSFUSION, VITAL SIGNS CHECKED, STABLE, NO RESPIRATORY DISTRESS NOTED, NO CHILLS OR FEVER NOTED, PATIENT IS STABLE, WAS ENDORSED BY AM NURSE THAT HEMODIALYSIS WAS NOT DONE BC OF THE SHUNT, MD IS AWARE, CHARGE NURSE IS AWARE, WILL CONTINUE TO MONITOR PATIENT
[2017-11-18] MEDS: TAMSULOSIN 0.4 MG CAP.SR.24H GT SCH (21:37)
[2017-11-18] MEDS: INSULIN GLARGINE, 100 UNIT/ML CARTRIDGE SQ SCH (23:01)
--- NOTE | 2017-11-18 23:04 | NUR ---
rn note blood transfusion ended, tolerated well, vital signs stable
[2017-11-18] MEDS: GLYTROL 1,000 ML BAG GT PRN (23:10)
[2017-11-19] VITALS (7 sets, daily range): BP systolic 100–143; BP diastolic 62–86
[2017-11-19] MEDS: IPRATROPIUM NEB FS 0.5 MG/2.5 ML AMPUL.NEB IH SCH ×4 (01:16→19:56)
[2017-11-19] MEDS: PIPERACILLIN /TAZOBACTAM 2.25 G in IV NS 0.9% 50 ML IV SCH ×3 (04:28→20:54)
[2017-11-19] MEDS: BLOOD SUGAR DIAGNOSTIC 1 EACH STRIP IN SCH ×3 (06:33→17:44)
[2017-11-19] MEDS: INSULIN REGULAR, HUMAN 100 UNIT/ML 3 ML VIAL SQ PRN ×2 (06:39→11:59)
[2017-11-19 06:47] LABS: BASOPHILS # (AUTO) 0.1 /CMM (0.0-0.2); BASOPHILS % (AUTO) 0.3 % (0.0-2.0); EOSINOPHILS # (AUTO) 0.2 /CMM (0.0-0.7); EOSINOPHILS % (AUTO) 1.1 % (0.0-6.0); HEMATOCRIT 27 % (39-51); HEMOGLOBIN 9.2 g/dL (13.5-17.5); LYMPHOCYTES % (AUTO) 11.9 % (20.0-44.0); MEAN CORPUSCULAR HEMOGLOBIN 30 PG (26.0-33.0); MEAN CORPUSCULAR HGB CONC 34 g/dl (31.0-36.0); MEAN CORPUSCULAR VOLUME 88 fL (80-96); MONOCYTES # (AUTO) 1.5 /CMM (0.1-1.30); MONOCYTES % (AUTO) 8.6 % (2.0-12.0); NEUTROPHILS # (AUTO) 13.5 /CMM (1.8-8.9); NEUTROPHILS % (AUTO) 78.1 % (43.0-81.0); PLATELET COUNT (AUTO) 472 /CMM (150-450); RDW COEFFICIENT OF VARIATION 16.3 (11.5-15.0); RED BLOOD CELL COUNT(AUTO) 3.06 MIL/uL (4.5-6.0); WHITE BLOOD COUNT (AUTO) 17.2 K/uL (4.3-11.0)
[2017-11-19 06:55] LABS: CALCIUM, SERUM 8.5 mg/dL (8.5-10.1); CREATININE 2.3 mg/dL (0.6-1.3); POTASSIUM 4.8 mmol/L (3.5-5.1)
--- NOTE | 2017-11-19 06:55 | NUR ---
RN NOTE PAGED DR RINALDI AT [phone] TO NOTIFY THAT PATIENT DID NOT HAVE HEMODIALYSIS BC HD CATH IS NOT WORKING PER HD BIOCHEMISTRY SPECIALIST, CHARGE NURSE IS AWARE
--- NOTE | 2017-11-19 07:02 | NUR ---
RN NOTE NO ACUTE CHANGES DURING MY SHIFT, NO RESPIRATORY DISTRESS NOTED, NO S/S OF PAIN OR DISCOMFORT NOTED, PATIENT IS AWAKE, OBTUNDED, ON MECHANICAL VENTILATOR, BREATHING EVEN, STILL ST, ON-GOING G-TUBE FEEDING GLYTROL 80 ML/HR, LEFT AC 20 GAUGE, LEFT UPPER ARM MIDLINE IS INTACT, NO S/S OF INFECTION,INFILTRATION NOTED, ONGOING IV FLUIDS, TURNED AND REPOSITIONED Q 2 HOURS, BED IN THE LOWEST POSITION, CALL LIGHT WITHIN REACH, SIDE RAILS UP X 2, WILL ENDORSE TO AM SHIFT
--- NOTE | 2017-11-19 07:30 | NUR ---
TELEPHOTO INSTALLER AM NOTES RECEIVED PT IN BED, NON VERBAL, PORTEX 8 TO MECHANICAL VENT, SETTINGS ORDERED, TOLERATING WELL, NOT IN ANY DISTRESS, BREATHING UNLABORED, TELEMETRY READS SR, HR 91, NO SIGNS OF DISCOMFORT, LAC G20, FLUSHES WELL, SITE CLEAR, LEFT UPPER ARM MIDLINE WITH 1/2 NS AT 50 ML/HR, SITE CLEAR, SEE NURSING FLOWSHEET FOR SKIN ISSUES. S/P RT FEMORAL HD CATH PLACEMENT 11/18, PER NIGHT NURSE UNABLE TO DO HD LAST NIGHT, DUE TO NOT WORKING, GTF - GLYTROL AT 80 ML/HR, 20 ML RESIDUAL, SEE NURSING FLOWSHEET FOR SKIN ISSUES, WILL SUCTION PRN, ALL SAFETY MEASURES IN PLACE. BED IN THE LOWEST POSITION, CALL LIGHT WITHIN REACH, ALL BELONGINGS WITHIN REACH, SIDE RAILS UP X 2, BED ALARM ACTIVATED FOR SAFETY, WILL CONTINUE TO MONITOR. Addendum: 11/19/17 at 1451 by CLAUDINE JAIN RN ADDENDUM: CHOLECYSTOSTOMY DRAIN IN PLACE, 0 OUTPUT.
[2017-11-19] MEDS ORDERED: FEE PK DOSING 1 MIN EA MC ONE (09:09)
[2017-11-19] MEDS: VALPROIC ACID 250 MG/5 ML UDC GT SCH ×2 (09:22→20:54)
[2017-11-19] MEDS: PANTOPRAZOLE 40 MG VIAL IV SCH (09:22)
[2017-11-19] MEDS: ASCORBIC ACID 500 MG TABLET GT SCH (09:22)
[2017-11-19] MEDS: ZINC SULFATE 220 MG CAPSULE PO SCH (09:22)
[2017-11-19] MEDS: METOPROLOL TARTRATE 50 MG TABLET PO SCH ×2 (09:23→20:56)
[2017-11-19] MEDS: PROSOURCE / PROSTAT (PYXIS) 30 ML UDC GT SCH ×2 (09:28→17:44)
[2017-11-19] MEDS: IV 1/2NS 1000 ML 1,000 ML IV PRN (09:30)
--- NOTE | 2017-11-19 09:30 | NUR ---
WELL LOGGING CAPTAIN MUD ANALYSIS NOTES DUE MEDS GIVEN.
[2017-11-19 09:57] LABS: ABG BASE EXCESS -1.7 mmol/L; ABG OXYGEN SATURATION 98.4 % (92.0-98.5); ABG PCO2 32.2 mmHg (35.0-45.0); ABG PO2 144.5 mmHg (75.0-100.0); AaDO2 103.7 mmHg; COHb 0.5 % (0.5-1.5); MetHb 0.3 % (0.0-1.5); O2Hb 97.6 % (94.0-97.0); SITE, ABG Right Radial; VENT MODE, BG AC 16 550 40% +5
[2017-11-19] MEDS ORDERED: VANCOMYCIN 1 GM in IV D5W 250 ML IV ONE (11:00)
[2017-11-19] MEDS: GLYTROL 1,000 ML BAG GT PRN (11:53)
--- NOTE | 2017-11-19 11:57 | NUR ---
ZYGLO TECHNICIAN NOTES ACCUCHECK DONE. BS 137 MG/DL. ADMINISTERED 2 UNITS HUM R PER SS. VANCO IV STARTED AT 1145. ZOSYN IV TO FOLLOW.
--- NOTE | 2017-11-19 12:15 | NUR ---
PAPER MACHINE BACK TENDER NOTES RIGHT FEMORAL HD CATH REMOVED BY [facility] HD NURSE PER DR. RINALDI.
--- NOTE | 2017-11-19 15:24 | NUR ---
CONSTRUCTION ELECTRICIAN NOTES GT RESIDUAL CHECKED - 200 ML. WILL HOLD FEEDING AND RECHECK IN AN HOUR
--- NOTE | 2017-11-19 16:25 | NUR ---
FLEXOGRAPHIC PRESS HELPER NOTES GT RESIDUAL CHECKED - 160 ML. WILL STILL HOLD GTF.
--- NOTE | 2017-11-19 17:44 | NUR ---
RT NOTE: PATIENT RECEIVED WITH #8 PORTEX CUFFED TRACH ON PB 840 VENT. ALARMS VERIFIED AND AUDIBLE. SUCTIONED AND LAVAGED MODERATE-LARGE AMOUNT OF THICK VALLES SECRETIONS. VENT PLUGGED INTO RED OUTLET. AMBU BAG AT [facility].
--- NOTE | 2017-11-19 17:44 | NUR ---
ELECTRICAL FOREMAN NOTES ACCUCHECK DONE. BS 94 MG/DL. NO INSULINCOVERAGE GIVEN. GTF RESUMED. RESIDUAL 20 ML.
--- NOTE | 2017-11-19 18:14 | NUR ---
RT NOTE: AT [address] AND BACK PT IN STABLE CONDITION NO DISTRESS, NOTED.
--- NOTE | 2017-11-19 18:46 | NUR ---
PEDIATRIC ORTHODONTIST CLOSING NOTES PT IN BED, RESTING COMFORTABLY. NON VERBAL, PORTEX 8 TO MECHANICAL VENT, SETTINGS ORDERED, TOLERATING WELL, NOT IN ANY DISTRESS, BREATHING UNLABORED, TELEMETRY READS SR, HR 76, NO SIGNS OF DISCOMFORT, LAC G20, FLUSHES WELL, SITE CLEAR, LEFT UPPER ARM MIDLINE WITH 1/2 NS AT 50 ML/HR, SITE CLEAR, GTF - GLYTROL AT 80 ML/HR, 20 ML RESIDUAL, SUCTIONED PRN, ALL SAFETY MEASURES IN PLACE. BED IN THE LOWEST POSITION, CALL LIGHT WITHIN REACH, ALL BELONGINGS WITHIN REACH, SIDE RAILS UP X 2, BED ALARM ACTIVATED FOR SAFETY, ALL NEEDS MET. TURNED AND REPOSITIONED Q 2HOURS. PM CARE DONE. NO OTHER SIGNIFICANT CHANGE IN CONDITION. CHOLECYSTOSTOMY DRAIN IN PLACE, 50 ML OUTPUT. WILL ENDORSE TO NEXT SHIFT FOR LIZETH.
--- NOTE | 2017-11-19 19:30 | NUR ---
PIG HANDLER NOTES, PATIENT IN BED, OBTUNDED, UNABLE TO LET NEEDS AND CONCERNS KNOW, ON VENT SETTINGS, NO SOB/ACUTE DISTRESS NOTED AT THIS TIME, GTF INFUSING WELL, 50LM RESIDUAL AT THIS TIME, TOLERATED WELL, HOB ELEVATED AT ALL TIMES FOR ASPIRATION PRECAUTION, ALICE MIDLINE INTACT AND IVF INFUSING WELL, GENERAL EDEMA NOTED, SR IN THE MONITOR, F/C DRAINING YELLOW URINE, PATENCY INTACT, NOTED DRY AND CLEAN, SUCTIONING PROVIDED NEEDED, BED LOCKED AND IN LOWEST POSITION, CALL LIGHT W/I REACH, WILL CONTINUE TO MONITOR CLOSELY.
--- NOTE | 2017-11-19 20:03 | NUR ---
PATIENT RECEIVED WITH TRACH ON LTV VENT. ALARMS VERIFIED AND AUDIBLE. SUCTIONED AND LAVAGED MODERATE AMOUNT OF THICK VALLES SECRETIONS. VENT PLUGGED INTO RED OUTLET. AMBU BAG AT HOB Addendum: 11/19/17 at 2004 by KATE ALONZO RT Amended: Links added.
[2017-11-19] MEDS: TAMSULOSIN 0.4 MG CAP.SR.24H GT SCH (21:26)
[2017-11-19] MEDS: INSULIN GLARGINE, 100 UNIT/ML CARTRIDGE SQ SCH (22:00)
--- NOTE | 2017-11-19 22:00 | NUR ---
CHIEF ENTERPRISE ARCHITECT NOTES, CHECKED RESIDUAL AGAIN AND AT THIS TIME RESIDUAL OF 200ML, HOLD GTF AT THIS, WILL CONTINUE TO MONITOR CLOSELY, MEDS ADMINISTERED ORDERED.
[2017-11-20] VITALS (8 sets, daily range): BP systolic 132–141; BP diastolic 67–98
--- NOTE | 2017-11-20 | NUR ---
TWO WAY RADIO INSTALLER NOTES, CHECKED RESIDUAL AT THIS TIME, AND NO RESIDUAL NOTED AT THIS TIME, GTF RESUMED AT THIS TIME, WILL CONTINUE TO MONITOR CLOSELY.
[2017-11-20] MEDS: INSULIN REGULAR, HUMAN 100 UNIT/ML 3 ML VIAL SQ PRN ×2 (00:01→05:18)
[2017-11-20] MEDS: IPRATROPIUM NEB FS 0.5 MG/2.5 ML AMPUL.NEB IH SCH ×3 (01:41→13:53)
--- NOTE | 2017-11-20 03:00 | NUR ---
ELECTRONIC HEAT SEAL OPERATOR NOTES, CHECKED RESIDUAL AT THIS TIME, NO RESIDUAL NOTED, GTF INFUSING WELL AND PATIENT TOLERATED WELL, WILL CONTINUE TO MONITOR CLOSELY.
[2017-11-20] MEDS: PIPERACILLIN /TAZOBACTAM 2.25 G in IV NS 0.9% 50 ML IV SCH ×2 (04:20→12:48)
--- NOTE | 2017-11-20 05:00 | NUR ---
CAR PARKER NOTES, CHECKED GT RESIDUAL AND 50 ML NOTED AT THIS TIME BAG CHANGED AND GTF INFUSING WELL PATIENT TOLERATED WELL, WILL CONTINUE TO MONITOR CLOSELY.
[2017-11-20] MEDS: BLOOD SUGAR DIAGNOSTIC 1 EACH STRIP IN SCH ×4 (05:18→17:27)
[2017-11-20] MEDS: GLYTROL 1,000 ML BAG GT PRN (05:20)
--- NOTE | 2017-11-20 06:30 | NUR ---
RN CLOSING NOTES, PATIENT ALERT AND ORIENTED, AWAKE AT THIS TIME, ABLE TO VERBALIZED NEEDS AND CONCERNS, BREATHING EVEN AND UNLABORED, NO S/SOB/ACUTE DISTRESS NOTED, NO ACUTE BLEEDING NOTED, NO C/O PAIN AT THIS TIME, NO BM THROUGHOUT THE SHIFT, ALL NEEDS PROVIDED AND ATTENDED, BED LOCKED AND IN LOWEST POSITION, CALL LIGHT W/I REACH, WILL ENDORSE CONTINUITY OF CARE TO ONCOMING NURSE.
--- NOTE | 2017-11-20 07:30 | NUR ---
CASINO DEALER AM NOTES RECEIVED PT IN BED, NON VERBAL, PORTEX 8 TO MECHANICAL VENT, SETTINGS ORDERED, TOLERATING WELL, NOT IN ANY DISTRESS, BREATHING UNLABORED, TELEMETRY READS SR, HR 87, NO SIGNS OF DISCOMFORT, LAC G20, FLUSHES WELL, SITE CLEAR, LEFT UPPER ARM MIDLINE WITH 1/2 NS AT 50 ML/HR, SITE CLEAR, SEE NURSING FLOWSHEET FOR SKIN ISSUES. GTF - GLYTROL AT 80 ML/HR, 5 ML RESIDUAL, SEE NURSING FLOWSHEET FOR SKIN ISSUES, WILL SUCTION PRN, ALL SAFETY MEASURES IN PLACE. BED IN THE LOWEST POSITION, CALL LIGHT WITHIN REACH, ALL BELONGINGS WITHIN REACH, SIDE RAILS UP X 2, BED ALARM ACTIVATED FOR SAFETY, WILL CONTINUE TO MONITOR. CHOLECYSTOSTOMY DRAIN IN PLACE, 15 ML SEROSANGUINOUS OUTPUT.
[2017-11-20 07:53] LABS: BASOPHILS % (AUTO) 0.2 % (0.0-2.0); EOSINOPHILS # (AUTO) 0.3 /CMM (0.0-0.7); EOSINOPHILS % (AUTO) 1.6 % (0.0-6.0); HEMATOCRIT 25 % (39-51); HEMOGLOBIN 8.6 g/dL (13.5-17.5); LYMPHOCYTES # (AUTO) 3.1 /CMM (0.8-4.8); LYMPHOCYTES % (AUTO) 18.6 % (20.0-44.0); MEAN CORPUSCULAR HEMOGLOBIN 30 PG (26.0-33.0); MEAN CORPUSCULAR HGB CONC 34 g/dl (31.0-36.0); MEAN CORPUSCULAR VOLUME 87 fL (80-96); MONOCYTES # (AUTO) 1.9 /CMM (0.1-1.30); MONOCYTES % (AUTO) 11.2 % (2.0-12.0); NEUTROPHILS # (AUTO) 11.5 /CMM (1.8-8.9); NEUTROPHILS % (AUTO) 68.4 % (43.0-81.0); PLATELET COUNT (AUTO) 643 /CMM (150-450); RDW COEFFICIENT OF VARIATION 16.8 (11.5-15.0); RED BLOOD CELL COUNT(AUTO) 2.91 MIL/uL (4.5-6.0); WHITE BLOOD COUNT (AUTO) 16.9 K/uL (4.3-11.0)
[2017-11-20 08:05] LABS: ALBUMIN 1.6 g/dL (3.4-5.0); BILIRUBIN,TOTAL 0.2 mg/dL (0.2-1.0); CALCIUM, SERUM 8.7 mg/dL (8.5-10.1); MAGNESIUM 1.9 mg/dL (1.8-2.4); PHOSPHORUS 4.3 mg/dL (2.5-4.9); POTASSIUM 3.8 mmol/L (3.5-5.1); TOTAL PROTEIN, SERUM 6.9 g/dL (6.4-8.2)
[2017-11-20] MEDS ORDERED: PIPE3.379 IV (08:22)
[2017-11-20] MEDS ORDERED: TAMS-12 GT (08:22)
[2017-11-20] MEDS: ASCORBIC ACID 500 MG TABLET GT SCH (08:53)
[2017-11-20] MEDS: ZINC SULFATE 220 MG CAPSULE PO SCH (08:54)
[2017-11-20] MEDS: VALPROIC ACID 250 MG/5 ML UDC GT SCH (08:54)
[2017-11-20] MEDS: METOPROLOL TARTRATE 50 MG TABLET PO SCH (08:56)
[2017-11-20] MEDS: PANTOPRAZOLE 40 MG VIAL IV SCH (08:56)
[2017-11-20] MEDS: PROSOURCE / PROSTAT (PYXIS) 30 ML UDC GT SCH ×2 (08:59→17:11)
--- NOTE | 2017-11-20 09:00 | NUR ---
MENTAL HEALTH SOCIAL WORKER NOTES GT RESIDUAL CHECKED = 120 ML. WILL HOLD GTF AND WILL CHECK IN AN HOUR.
--- NOTE | 2017-11-20 09:30 | NUR ---
NETWORK OPERATIONS TECHNICIAN NOTES DUE MEDS GIVEN.
[2017-11-20] MEDS ORDERED: VANCOMYCIN 500 MG in IV NS 0.9% 100 ML IV PRN (11:00)
--- NOTE | 2017-11-20 11:00 | NUR ---
BOBBIN WINDER NOTES GT RESIDUAL CHECKED - 120 ML. WILL HOLD FEEDING AND RECHECK IN AN HOUR
[2017-11-20] MEDS ORDERED: VANCOMYCIN 1 GM in IV D5W 250 ML IV SCH (12:00)
--- NOTE | 2017-11-20 12:45 | NUR ---
FLIGHT READINESS TECHNICIAN NOTES GT RESIDUAL CHECKED - 80 ML. WILL RESUME FEEDING
--- NOTE | 2017-11-20 12:48 | NUR ---
TAX AGENT NOTES ACCUCHECK DONE. BS 120 MG/DL. NO INSULIN COVERAGE GIVEN. ZOSYN IV STARTED AT 1248 VANCO IV TO FOLLOW. GT RESIDUAL AT 100ML. WILL STILL HOLD GTF. Addendum: 11/20/17 at 1301 by CLAUDINE JAIN RN CORRECTION: GT RESIDUAL AT 1245 IS 80 ML. GTF RESUMED.
--- NOTE | 2017-11-20 17:12 | NUR ---
FORESTRY SUPPORT SPECIALIST NOTES ACCUCHECK DONE. BS 128 MG/DL. NO INSULIN COVERAGE GIVEN.
--- NOTE | 2017-11-20 17:55 | NUR ---
TELE DISCHARGE NOTES PATIENT DISCHARGED TO [facility] TODAY IN STABLE CONDITION PER MD. PROVIDED DC INSTRUCTIONS, MED RECON LIST AND HEALTH TEACHINGS. PATIENT TO BEE SEEN BY PMD OR PER FACILITY PROTOCOL. PATIENT TO FOLLOW UP WITH DR. ANDRIY ONOFRE INSTRUCTED. PORTEX [address] LEFT AC IV ACCESS REMOVED, CATH TIP COMPLETE, NO BLEEDING, DRESSING IN PLACE. LEFT UPPER ARM MIDLINE WITH CDI DRESSING KEPT FOR FURTHER IV ATB AT FACILITY.PARK CATH IN PLACE WITH 2000 ML OUTPUT, INSTRUCTION GIVEN TO BE REMOVED AFTER 48 HOURS. NO BELONGINGS, ALL PAPERWORKS SIGNED. PHOTOS OF SKIN ISSUES TAKEN AND INCORPORATED IN CHART. REPORT GIVEN TO DOROTHEA NICOLE FACILITY STAFF. PATIENT PICKED UP BY [facility] TO TRANSPORT PATIENT TO FACILITY.
[2017-11-21] MEDS ORDERED: VANCOMYCIN 500 MG in IV NS 0.9% 100 ML IV PRN (06:00)
== END 2017-11-20 17:56 | DRG 720 ==
LOC: ER 15:21 → TELE-TD 22:58 → TELE1 11-14 11:27
PROVIDERS: ADMIT Internal Medicine; ATTEND Internal Medicine
PROC: 05H633Z Insertion of Infusion Device into Left Subclavian Vein, Percutaneous Approach (ICD-10-PCS; principal; 2017-11-13)
PROC: 06HM33Z Insertion of Infusion Device into Right Femoral Vein, Percutaneous Approach (ICD-10-PCS; 2017-11-14)
PROC: 0F943ZX Drainage of Gallbladder, Percutaneous Approach, Diagnostic (ICD-10-PCS; 2017-11-14)
PROC: B54BZZA Ultrasonography of Right Lower Extremity Veins, Guidance (ICD-10-PCS; 2017-11-14)
PROC: 0JHL3XZ Insertion of Tunneled Vascular Access Device into Right Upper Leg Subcutaneous Tissue and Fascia, Percutaneous Approach (ICD-10-PCS; 2017-11-14)
PROC: 30233N1 Transfusion of Nonautologous Red Blood Cells into Peripheral Vein, Percutaneous Approach (ICD-10-PCS; 2017-11-17)
PROC: 5A1945Z Respiratory Ventilation, 24-96 Consecutive Hours (ICD-10-PCS; 2017-11-18)
DX: A41.9 Sepsis, unspecified organism (principal); N17.0 Acute kidney failure with tubular necrosis; E43 Unspecified severe protein-calorie malnutrition; G93.1 Anoxic brain damage, not elsewhere classified; Z99.11 Dependence on respirator [ventilator] status; J96.11 Chronic respiratory failure with hypoxia; R64 Cachexia; R53.2 Functional quadriplegia; E87.2 Acidosis; K80.00 Calculus of gallbladder with acute cholecystitis without obstruction; E86.0 Dehydration; E11.22 Type 2 diabetes mellitus with diabetic chronic kidney disease; N17.9 Acute kidney failure, unspecified; Z93.0 Tracheostomy status; Z93.1 Gastrostomy status; R13.10 Dysphagia, unspecified; G40.909 Epilepsy, unspecified, not intractable, without status epilepticus; K21.9 Gastro-esophageal reflux disease without esophagitis; Z79.4 Long term (current) use of insulin; Z79.899 Other long term (current) drug therapy; K82.1 Hydrops of gallbladder; K59.00 Constipation, unspecified; K57.90 Diverticulosis of intestine, part unspecified, without perforation or abscess without bleeding; N13.30 Unspecified hydronephrosis; I12.9 Hypertensive chronic kidney disease with stage 1 through stage 4 chronic kidney disease, or unspecified chronic kidney disease; N18.9 Chronic kidney disease, unspecified; E87.1 Hypo-osmolality and hyponatremia; E87.5 Hyperkalemia; I70.0 Atherosclerosis of aorta; M61.9 Calcification and ossification of muscle, unspecified; F09 Unspecified mental disorder due to known physiological condition; D64.9 Anemia, unspecified; S00.572A Other superficial bite of oral cavity, initial encounter; X58.XXXA Exposure to other specified factors, initial encounter; Y92.89 Other specified places as the place of occurrence of the external cause; E66.01 Morbid (severe) obesity due to excess calories; Z68.28 Body mass index [BMI] 28.0-28.9, adult
CPT/HCPCS: 31720; 36415; 36569; 36600; 71045-TC; 75989; 75989-TC; 76705-TC; 76770-TC; 80048-TC; 80053-TC; 80076-TC; 80202-TC; 81000-TC; 82570-TC; 82803-TC; 82962-TC; 83605-TC; 83690-TC; 83735-TC; 84100-TC; 84155-TC; 84300-TC; 84484-TC; 85025-TC; 85027-TC; 85730-TC; 86850-TC; 86921-TC; 87040-TC; 87081-TC; 88305-TC; 88312-TC; 90935-TC; 94002; 94003-TC; 94640-TC; 94664-TC; 94760-TC; 94762-TC; 99082-TC; A4216; A4606; A6253; A6402; A6403; A7526; C1750; C9113; J1170; J1644; J1815; J2250; J2310; J2543; J3010; J3370; J3480; J3490; J7030; J7040; J7050; J7060; P9016-BL; Z7610

== ENCOUNTER 2017-12-17 09:11 | Inpatient (IN) | payer MEDICAID ==
[~2017-12-17] VITALS: Ht 177.8 cm; Wt 77.1 kg
[~2017-12-17 09:11] MED LIST: ACET325T53 GT; ALBU2.5V38 IH; BISA10SU61 RC; CALC-261 GT; CRAN3875 GT; ESOM20CA GT; HEPA50007 SQ; INSU300I SQ; IPRA0.2S9 IH; MAGN400O6 GT; METO100T14 GT; MULT-213 GT; NA P133E RC; PIPE3.379 IV; TAMS-12 GT; VALP250S22 GT
--- NOTE | 2017-12-17 09:15 | NUR ---
[facility] PRIVATE EMT FROM [facility] FOR CHOLANGIOGRAPHY AND F/U WITH SURGEON, DR. ONOFRE. PATIENT IS CHRONIC VENT/TRACH DEPENDENT. OBTUNDED, NO SOB, NAD NOTED. PATIENT HAS GTUBE INTACT. ALSO HAS DRAIN ON RIGHT UPPER ABDOMEN, S/P CHOLECYSTECTOMY, DRAINING WELL. VITALS REMAIN STABLE. SAFETY AND COMFORT MEASURES IN PLACE. AWAITING MD ORDERS.
[2017-12-17 09:20] VITALS: BP 110/77
[2017-12-17 09:44] LABS: BASOPHILS # (AUTO) 0.1 /CMM (0.0-0.2); BASOPHILS % (AUTO) 0.5 % (0.0-2.0); EOSINOPHILS # (AUTO) 0.3 /CMM (0.0-0.7); EOSINOPHILS % (AUTO) 1.9 % (0.0-6.0); HEMATOCRIT 31 % (39-51); HEMOGLOBIN 10.4 g/dL (13.5-17.5); LYMPHOCYTES # (AUTO) 3.8 /CMM (0.8-4.8); LYMPHOCYTES % (AUTO) 27.9 % (20.0-44.0); MEAN CORPUSCULAR HEMOGLOBIN 29 PG (26.0-33.0); MEAN CORPUSCULAR HGB CONC 33 g/dl (31.0-36.0); MEAN CORPUSCULAR VOLUME 87 fL (80-96); MONOCYTES # (AUTO) 1.7 /CMM (0.1-1.30); MONOCYTES % (AUTO) 12.6 % (2.0-12.0); NEUTROPHILS # (AUTO) 7.8 /CMM (1.8-8.9); NEUTROPHILS % (AUTO) 57.1 % (43.0-81.0); PLATELET COUNT (AUTO) 461 /CMM (150-450); RDW COEFFICIENT OF VARIATION 16.9 (11.5-15.0); RED BLOOD CELL COUNT(AUTO) 3.59 MIL/uL (4.5-6.0); WHITE BLOOD COUNT (AUTO) 13.7 K/uL (4.3-11.0)
--- NOTE | 2017-12-17 09:44 | NUR ---
NEW IV STARTED ON RFA, 20G. BLOOD DRAWN AND SENT TO LAB.
[2017-12-17 09:53] LABS: CALCIUM, SERUM 9.4 mg/dL (8.5-10.1); POTASSIUM 3.9 mmol/L (3.5-5.1)
[2017-12-17 09:58] LABS: ALBUMIN 3.1 g/dL (3.4-5.0); BILIRUBIN,DIRECT 0.2 mg/dL (0.0-0.2); BILIRUBIN,TOTAL 0.4 mg/dL (0.2-1.0); TOTAL PROTEIN, SERUM 9.7 g/dL (6.4-8.2)
--- NOTE | 2017-12-17 10:30 | NUR ---
REPORT GIVEN TO TITI NICOLE FOR LIZETH UPON ADMISSION.
[2017-12-17] MEDS ORDERED: ZINC220T GT (10:45)
[2017-12-17] MEDS ORDERED: CLON0.1T GT (10:45)
[2017-12-17] MEDS ORDERED: AMLO5TAB2 GT (10:45)
[2017-12-17] MEDS ORDERED: TAMS0.4C34 GT (10:45)
--- NOTE | 2017-12-17 10:50 | NUR ---
PATIENT TRANSPORTED TO [facility] VIA ACLS PROTOCOL. TITI NICOLE TO PROVIDE LIZETH.
[2017-12-17] MEDS ORDERED: IOHEXOL-300 100 ML VIAL IV ONE (10:58)
[2017-12-17 11:30] VITALS: BP 115/73
--- NOTE | 2017-12-17 11:32 | NUR ---
AWAITING CONSENT FOR CHOLANGIOGRAM
--- NOTE | 2017-12-17 11:50 | NUR ---
telehealth nurse educatorrn or lpn notes Admitted a 57 years old male patient who came in for cholangiography as ordered by Dr. Oden. MD made aware of the admission, informed about home medication, per MD to continue all home meds and GT feeding. All orders carried out and noted. Skin assessment done and pictures taken and filed in the chart. Patient noted drain on the left abdominal area. On mechanical Vent and tolerated well. 02 sat of 100%. Faxed all home meds to the pharmacy. Patient is for cholangiogram and 2 MD signed consent. Vital signs checked and recorded. kept patient clean and comfortable in bed, call light with in patient reach. Informed Dr. Oden about patient having tachycardia in radiology department and ordered stat 0.5 mg of ativan IVP and given. Will continue to monitor accordingly.
[2017-12-17] MEDS ORDERED: LORAZEPAM INJ 2 MG/ML VIAL IV ONE (14:15)
[2017-12-17 16:00] VITALS: BP 107/73
[2017-12-17] MEDS ORDERED: GLYTROL 1,000 ML BAG GT PRN (16:00)
[2017-12-17] MEDS ORDERED: ALBUTEROL FS 2.5 MG/3 ML VIAL.NEB IH PRN (16:30)
[2017-12-17] MEDS ORDERED: IPRATROPIUM NEB FS 0.5 MG/2.5 ML AMPUL.NEB IH PRN (16:30)
[2017-12-17] MEDS ORDERED: MAGNESIUM HYDROXIDE 30 ML UDC GT PRN (16:30)
[2017-12-17] MEDS ORDERED: BISACODYL SUPP (10 MG) 10 MG/SUPP.RECT SUPP.RECT RC PRN (16:30)
[2017-12-17] MEDS ORDERED: NA PHOS,M-B/NA PHOS,DI-BA 1 EA ENEMA RC PRN (16:30)
[2017-12-17] MEDS ORDERED: CLONIDINE HCL 0.1 MG TABLET GT PRN (16:30)
[2017-12-17] MEDS ORDERED: Medication Not On Formulary EA (Cran/Vitc/Mannose/Inulin/Brom (Uti-Stat Liquid) 30 MG) GT SCH (17:00)
[2017-12-17] MEDS: METOPROLOL TARTRATE 50 MG TABLET GT SCH (18:39)
--- NOTE | 2017-12-17 19:16 | NUR ---
telemetry monitor closing notes All needs provided, attended, and anticipated. No pain or discomfort noted. Endorsed to next shift RN to continue care. On tele monitor ST 105. Drain output 200ml. GT infusing well.
--- NOTE | 2017-12-17 19:45 | NUR ---
RN OPENING NOTES RECEIVED REPORT FROM COREY WALLS. FOUND Pt IN BED. NO S/S OF ACUTE DISTRESS OR SOB NOTED. Pt IS OBTUNDED/NONVERBAL. ON MECHANICAL VENT, WITH VENT SETTINGS AT: AC 10, TV 550, PEEP 5, & FIO2 40%. ON TELE MONITOR. GTF GLYTROL @45ML/HR. IV ACCESS ON RFA #20G, SL. SAFETY MEASURES IN PLACE. BED LOW, LOCKED, HOB ELEVATED, SIDE RAILS UP, CALL LIGHT AND BEDSIDE TABLE WITHIN REACH. WILL CONTINUE TO MONITOR Pt THROUGHOUT THE NIGHT FOR SAFETY.
[2017-12-17 20:00] VITALS: BP 93/65
[2017-12-17] MEDS: ALBUTEROL FS 2.5 MG/3 ML VIAL.NEB IH SCH (20:31)
[2017-12-17] MEDS: IPRATROPIUM NEB FS 0.5 MG/2.5 ML AMPUL.NEB IH SCH (20:31)
--- NOTE | 2017-12-17 20:31 | NUR ---
PT ON VENT A/C MODE. PT IN NO RESPIRATORY DISTRESS NOTED ATT. PT HAS A TRACH WHICH IS INTACT AND SECURE. PT SX PRN RETURNING SMALL TO MODERATE PALE YELLOW SECRETIONS. BREATH SOUNDS RHONCHI. VENT PLUGGED INTO RED OUTLET. VENT ALARMS CHECKED FOUND TO BE FUNCTIONAL, AUDIBLE AND WITHIN LIMITS. BVM AT BEDSIDE.
[2017-12-17] MEDS ORDERED: METOPROLOL TARTRATE 50 MG TABLET GT SCH (21:00)
[2017-12-17] MEDS ORDERED: TAMSULOSIN 0.4 MG CAP.SR.24H GT SCH (22:00)
[2017-12-17] MEDS ORDERED: [UNRECOGNIZED DRUG - OTHER] SQ SCH (22:00)
[2017-12-17] MEDS ORDERED: INSULIN GLARGINE, 100 UNIT/ML CARTRIDGE SQ SCH (22:00)
[2017-12-17] MEDS ORDERED: AMLODIPINE BESYLATE 5 MG TABLET GT SCH (22:00)
[2017-12-17] MEDS ORDERED: INSULIN GLARGINE HUM REC ANLOG 15 UNIT SQ SCH (22:00)
[2017-12-17] MEDS: VALPROIC ACID 250 MG/5 ML UDC GT SCH (22:16)
--- NOTE | 2017-12-17 22:30 | NUR ---
RN NOTES HELD NORVASC 5MG DUE TO Pt's DECREASED BP. BP 93/65. WILL CONTINUE TO MONITOR Pt's BP.
[2017-12-17] MEDS: HEPARIN SODIUM, PORCINE 5000 UNITS/1 ML VIAL SQ SCH (22:31)
--- NOTE | 2017-12-17 22:31 | NUR ---
BG 147. ADMINISTERED SCHEDULED LANTUS 12UN. ON CONTINUOUS GTFEED.
[2017-12-18] VITALS: BP 91/72
[2017-12-18] MEDS: ALBUTEROL FS 2.5 MG/3 ML VIAL.NEB IH SCH ×3 (02:02→14:00)
[2017-12-18] MEDS: IPRATROPIUM NEB FS 0.5 MG/2.5 ML AMPUL.NEB IH SCH ×3 (02:02→14:00)
[2017-12-18 04:00] VITALS: BP 139/71
--- NOTE | 2017-12-18 06:41 | NUR ---
RN CLOSING NOTES NO SIGNIFICANT CHANGES IN Pt's CONDITION. Pt REMAINS IN STABLE CONDITION DURING THIS TIME. NO S/S OF ACUTE DISTRESS OR SEVERE SOB NOTED DURING THE NIGHT. TELE READING ST 105 (Pt's BASELINE). ALL NEEDS MET AND ATTENDED TO. SAFETY MEASURES IN PLACE. WILL ENDORSE TO DAYSHIFT RN FOR Pt's LIZETH.
--- NOTE | 2017-12-18 07:30 | NUR ---
SHAKER OUT NOTES PT IN BED, ASLEEP, NON VERBAL, NO SIGN OF DISTRESS, VENT IN PLACE, GT FEEDING INFUSING WELL, KEPT HOB ELEVATED, WITH DRAIN AT RIGHT ABDOMEN, WITH MINIMAL DRAIN NOTED, TURNED AND REPOSITIONED, KEPT SUPERVISOR PUMPING STATION BED.
[2017-12-18 08:00] VITALS: BP 87/57
[2017-12-18] MEDS: VALPROIC ACID 250 MG/5 ML UDC GT SCH (08:20)
[2017-12-18] MEDS: HEPARIN SODIUM, PORCINE 5000 UNITS/1 ML VIAL SQ SCH (08:21)
[2017-12-18] MEDS ORDERED: ZINC SULFATE 220 MG CAPSULE GT SCH (09:00)
[2017-12-18] MEDS ORDERED: MULTIVIT, IRON, MIN NO. 8, FA 1 TAB GT SCH (09:00)
[2017-12-18] MEDS ORDERED: CALCIUM CARB 250MG /VITAMIN D 1 UDTAB GT SCH (09:00)
[2017-12-18] MEDS: METOPROLOL TARTRATE 50 MG TABLET GT SCH (09:00)
[2017-12-18] MEDS ORDERED: ACETAMINOPHEN 650 MG/20.3 ML UDC GT SCH (09:00)
--- NOTE | 2017-12-18 09:28 | NUR ---
DIE CASTING MACHINE OPERATOR NOTES PT SEEN BY DR. SETH, DISCHARGE ORDER GIVEN, PER MD, PT NEEDS TO BE SEEN BY DR. ONOFRE FOR ABDOMINAL DRAIN REMOVAL BEFORE DISCHARGE.
--- NOTE | 2017-12-18 10:15 | NUR ---
RN MS NOTES PER DR. SETH, HE SPOKE WITH DR. ONOFRE, HE IS NOT ABLE TO COME TODAY SO DR. SETH ORDERED ABDOMINAL DRAIN TO BE REMOVED BY RADIOLOGY, PT CAN BE DISCHARGED AFTER ABDOMINAL DRAIN REMOVAL, RADIOLOGY INFORMED.
[2017-12-18 10:26] LABS: BASOPHILS # (AUTO) 0.1 /CMM (0.0-0.2); BASOPHILS % (AUTO) 0.7 % (0.0-2.0); EOSINOPHILS # (AUTO) 0.1 /CMM (0.0-0.7); EOSINOPHILS % (AUTO) 0.9 % (0.0-6.0); HEMATOCRIT 26 % (39-51); HEMOGLOBIN 8.8 g/dL (13.5-17.5); LYMPHOCYTES # (AUTO) 4.7 /CMM (0.8-4.8); LYMPHOCYTES % (AUTO) 31.9 % (20.0-44.0); MEAN CORPUSCULAR HEMOGLOBIN 30 PG (26.0-33.0); MEAN CORPUSCULAR HGB CONC 34 g/dl (31.0-36.0); MEAN CORPUSCULAR VOLUME 88 fL (80-96); MONOCYTES # (AUTO) 2.8 /CMM (0.1-1.30); MONOCYTES % (AUTO) 19.2 % (2.0-12.0); NEUTROPHILS % (AUTO) 47.3 % (43.0-81.0); PLATELET COUNT (AUTO) 385 /CMM (150-450); RDW COEFFICIENT OF VARIATION 17.7 (11.5-15.0); RED BLOOD CELL COUNT(AUTO) 2.93 MIL/uL (4.5-6.0); WHITE BLOOD COUNT (AUTO) 14.7 K/uL (4.3-11.0)
[2017-12-18 10:42] LABS: CALCIUM, SERUM 8.9 mg/dL (8.5-10.1); CREATININE 1.2 mg/dL (0.6-1.3); POTASSIUM 4.3 mmol/L (3.5-5.1)
[2017-12-18 11:46] VITALS: BP 108/70
[2017-12-18 11:47] LABS: EOSINOPHILS % (MANUAL) 1 % (0-4); LYMPHOCYTES % (MANUAL) 40 % (16-48); MONOCYTES % (MANUAL) 24 % (0-11.0); NEUTROPHILS % (MANUAL) 35 (42-76)
[2017-12-18 12:25] LABS: BILIRUBIN,URINE NEGATIVE (NEGATIVE); BLOOD, URINE NEGATIVE Ery/uL (NEGATIVE); COLOR,URINE YELLOW (YELLOW); KETONES,URINE NEGATIVE (NEGATIVE); LEUKOCYTE ESTERASE ,URINE NEGATIVE (NEGATIVE); NITRITE, URINE NEGATIVE (NEGATIVE); PROTEIN,URINE TRACE mg/dl (NEGATIVE); UGLUCOSE NEGATIVE (NEGATIVE); UROBILINOGEN,URINE 0.2 EU/dL (0.2)
[2017-12-18 12:28] LABS: APPEARANCE,URINE SLIGHTLY HAZY (CLEAR); BACTERIA,URINE None seen /HPF (None Seen); RBC,URINE NONE SEEN /HPF (0-2); SQUAMOUS EPITHELIAL CELL,UR Few /HPF (None Seen); WBC,URINE NONE SEEN /HPF (0-3)
--- NOTE | 2017-12-18 15:57 | NUR ---
RN MS NOTES PT IN BED, RESTING, NO SIGN OF PAIN OR DISTRESS, COMPLETED REMOVAL OF RIGHT ABDOMEN DRAIN BY RADIOLOGY, TOLERATED WELL, DR. SETH INFORMED OF LATEST LAB RESULTS AND UA RESULT, CLEARED PT FOR DISCHARGE.
[2017-12-18 16:00] VITALS: BP 107/68
--- NOTE | 2017-12-18 18:02 | NUR ---
MICROWAVE RADIO TECHNICIAN NOTES PT IN BED, NO SIGN OF PAIN, NO FACIAL GRIMACING OR MOANING, BREATHING PATTERN NORMAL, VENT IN PLACE, PT FOR DISCHARGE BACK TO [facility], REPORT GIVEN TO LEO NICOLE, GAVE REPORT TO MEGAN OF AMBULANCE SERVICE, PT HAS NO BELONGINGS, LEFT IN STABLE CONDITION.
--- NOTE | 2017-12-18 18:02 | NUR ---
RN BURN NOTES DRESSING TO PT'S DRAIN SITE AT RIGHT ABDOMEN IS DRY AND INTACT, NO BLEEDING OR DISCHARGE NOTED.
== END 2017-12-18 18:02 | DRG 862 ==
LOC: ER 09:12 → TELE 12:15
PROVIDERS: ADMIT Internal Medicine; ATTEND Internal Medicine
PROC: 5A1945Z Respiratory Ventilation, 24-96 Consecutive Hours (ICD-10-PCS; principal; 2017-12-17)
PROC: 2W53XYZ Removal of Other Device on Abdominal Wall (ICD-10-PCS; 2017-12-18)
DX: Z48.03 Encounter for change or removal of drains (principal); E43 Unspecified severe protein-calorie malnutrition; Z99.11 Dependence on respirator [ventilator] status; J96.10 Chronic respiratory failure, unspecified whether with hypoxia or hypercapnia; R64 Cachexia; R53.2 Functional quadriplegia; Z93.0 Tracheostomy status; R13.10 Dysphagia, unspecified; F09 Unspecified mental disorder due to known physiological condition; G40.909 Epilepsy, unspecified, not intractable, without status epilepticus; I10 Essential (primary) hypertension; K21.9 Gastro-esophageal reflux disease without esophagitis; K59.00 Constipation, unspecified; E11.9 Type 2 diabetes mellitus without complications; D64.9 Anemia, unspecified; E88.09 Other disorders of plasma-protein metabolism, not elsewhere classified; Z68.24 Body mass index [BMI] 24.0-24.9, adult; Z79.4 Long term (current) use of insulin
CPT/HCPCS: 31720; 36415; 47532; 80048-TC; 80076-TC; 81000-TC; 82962-TC; 83605-TC; 83690-TC; 85025-TC; 87081-TC; 94002-TC; 94003-TC; 94762-TC; 99082-TC; A4606; J1644; J1815; J2060; Q9967; Z7610

== ENCOUNTER 2019-04-02 18:02 | Inpatient (IN) | payer MEDICAID ==
[~2019-04-02] VITALS: Ht 172.7 cm; Wt 81.6 kg
[~2019-04-02 18:02] MED LIST changes: +AMLO5TAB9 GT; +CLON0.1T GT; -ESOM20CA GT; -PIPE3.379 IV; -TAMS-12 GT; +TAMS0.4C34 GT; +ZINC220T GT
--- NOTE | 2019-04-02 18:11 | NUR ---
RAMILA FROM [facility]; SENT BY PMD FOR LOW HGB. PT IS OBTUNDED, HAS A TRACH AND G-TUBE IN PLACE. VENT SETTINGS @ 10 BPM, TIDAL VOLUME 550, 40% O2, PEEP 5. ALL 4 EXTREMITIES CONTRACTED. SKIN TAUT AND SHINY. PT WEARS DIAPER. CAME WITH IV 24G IN LEFT HAND. READY FOR EVAL.
[2019-04-02 18:37] LABS: BASOPHILS # (AUTO) 0.1 /CMM (0.0-0.2); BASOPHILS % (AUTO) 0.5 % (0.0-2.0); EOSINOPHILS % (AUTO) 0.8 % (0.0-6.0)
[2019-04-02 18:43] LABS: BILIRUBIN,TOTAL 0.2 mg/dL (0.2-1.0); CALCIUM, SERUM 8.2 mg/dL (8.5-10.1); CREATININE 3.5 mg/dL (0.6-1.3); LYMPHOCYTES # (AUTO) 3.3 /CMM (0.8-4.8); LYMPHOCYTES % (AUTO) 23.6 % (20.0-44.0); MEAN CORPUSCULAR HGB CONC 31 g/dl (31.0-36.0); MEAN CORPUSCULAR VOLUME 114 fL (80-96); MONOCYTES # (AUTO) 2.3 /CMM (0.1-1.30); MONOCYTES % (AUTO) 16.5 % (2.0-12.0); NEUTROPHILS # (AUTO) 8.2 /CMM (1.8-8.9); NEUTROPHILS % (AUTO) 58.6 % (43.0-81.0); PLATELET COUNT (AUTO) 523 /CMM (150-450); TOTAL PROTEIN, SERUM 8.9 g/dL (6.4-8.2)
[2019-04-02 18:47] LABS: HEMOGLOBIN 3.6 g/dL (13.5-17.5); RED BLOOD CELL COUNT(AUTO) 1.01 MIL/uL (4.5-6.0)
[2019-04-02 18:48] LABS: HEMATOCRIT 12 % (39-51)
[2019-04-02] MEDS ORDERED: DOCU50LI GT (18:51)
[2019-04-02] MEDS ORDERED: NUT.237L67 GT (18:51)
[2019-04-02] MEDS ORDERED: BLOO-668 IN (18:51)
[2019-04-02] MEDS ORDERED: RANI-655 GT (18:51)
[2019-04-02] MEDS ORDERED: CALC500T52 GT (18:51)
[2019-04-02] MEDS ORDERED: ACET650S26 GT (18:51)
[2019-04-02] MEDS ORDERED: FERR300L GT (18:51)
[2019-04-02] MEDS ORDERED: INSU100V3 SQ (18:51)
[2019-04-02] MEDS ORDERED: SACC250C GT (18:51)
[2019-04-02] MEDS ORDERED: ACET-2605 GT (18:51)
[2019-04-02] MEDS ORDERED: INSU100I26 SQ (18:51)
[2019-04-02 18:53] LABS: ALBUMIN 1.4 g/dL (3.4-5.0)
[2019-04-02] MEDS ORDERED: FAMOTIDINE/PF INJ 20 MG/2 ML VIAL IV ONE ×2 (19:30→19:55)
--- NOTE | 2019-04-02 19:52 | NUR ---
PT RESTING IN BED, NO ACUTE SIGNS OF DISTRESS. VSS. WILL CONT TO OBSERVE.
--- NOTE | 2019-04-02 20:16 | NUR ---
FECAL SAMPLE OBTAINED FOR OCCULT BLOOD TEST. PT MADE CLEAN AND DRY, DIAPER CHANGED.
--- NOTE | 2019-04-02 20:41 | NUR ---
ICU BED 253
--- NOTE | 2019-04-02 20:51 | NUR ---
BED NOW ICU 259
[2019-04-02] MEDS ORDERED: MAGNESIUM HYDROXIDE 30 ML UDC PO PRN (21:00)
[2019-04-02] MEDS ORDERED: ACETAMINOPHEN 325 MG TABLET PO PRN (21:00)
[2019-04-02] MEDS ORDERED: Z GUARD REMEDY 2 OZ OINT TP PRN (21:00)
[2019-04-02] MEDS ORDERED: ONDANSETRON HCL/PF 4 MG/2 ML VIAL IVP PRN (21:00)
[2019-04-02] MEDS ORDERED: PANTOPRAZOLE 40 MG VIAL IV SCH (21:00)
[2019-04-02] MEDS ORDERED: MAG HYDROX/AL HYDROX/SIMETH 30 ML UDC PO PRN (21:00)
[2019-04-02] MEDS ORDERED: CLONIDINE HCL 0.1 MG TABLET GT PRN (21:30)
[2019-04-02] MEDS ORDERED: BISACODYL SUPP (10 MG) 10 MG/SUPP.RECT SUPP.RECT RC PRN (21:30)
[2019-04-02] MEDS ORDERED: NA PHOS,M-B/NA PHOS,DI-BA 1 EA ENEMA RC PRN (21:30)
[2019-04-02] MEDS ORDERED: IPRATROPIUM NEB FS 0.5 MG/2.5 ML AMPUL.NEB IH PRN ×2 (21:30→21:47)
--- NOTE | 2019-04-02 21:34 | NUR ---
REPORT GIVEN TO ZIYAD NICOLE.
--- NOTE | 2019-04-02 21:45 | NUR ---
RECEIVED PT IN NO ACUTE DISTRESS IN BED. PT IS OBTUNDED WITH EYES OPEN. PT IS ON O2 VIA MECHANICAL VENT. PT HAS A TRACH THAT IS CLEAN DRY AND INTACT. PT IS TOLERATING VENT SETTING @ AC 10, TV 550, FIO2 40%, PEEP 5. PT HAS GTUBE THAT IS CLEAN DRY INTACT AND PATENT WITH FREE WATER FLUSH. PT HAS R WRIST 20G THAT IS CLEAN DRY INTACT AND PATENT WITH SALINE LOCK. BED IN LOW LOCK POSITION WITH RIALS UP X 2. CALL LIGHT WITHIN REACH AND ALL SAFETY MEASURES ENSURED AND CARRIED OUT. WILL CONTINUE TO MONITOR PT. PT HAS ORDERED 2 UNITS PRBC DUE TO HGB @ 3.6. AWAITING BLOOD.
--- NOTE | 2019-04-02 21:48 | NUR ---
[facility]
[2019-04-02 22:00] VITALS: BP 112/49
[2019-04-02 22:00] LABS: BAND % (MANUAL) 1 % (0.0-5.0); LYMPHOCYTES % (MANUAL) 18 % (16-48); MONOCYTES % (MANUAL) 5 % (0-11.0); NEUTROPHILS % (MANUAL) 76 (42-76)
[2019-04-02] MEDS: INSULIN GLARGINE, 100 UNIT/ML CARTRIDGE SQ SCH (22:00)
[2019-04-02] MEDS: TAMSULOSIN 0.4 MG CAP.SR.24H GT SCH (22:21)
[2019-04-02 22:37] VITALS: BP 112/49
[2019-04-02] MEDS ORDERED: INSULIN GLARGINE, 100 UNIT/ML CARTRIDGE SQ ONE (22:45)
[2019-04-02] MEDS ORDERED: PANTOPRAZOLE 40 MG VIAL ONE (22:45)
[2019-04-02 23:00] VITALS: BP 101/60
--- NOTE | 2019-04-02 23:15 | NUR ---
LANTUS 12 UNITS DUE @ 2200 NOT GIVEN DUE TO BS 79.
[2019-04-02 23:29] LABS: APPEARANCE,URINE CLEAR (CLEAR); BILIRUBIN,URINE NEGATIVE (NEGATIVE); BLOOD, URINE 2+ Ery/uL (NEGATIVE); COLOR,URINE YELLOW (YELLOW); KETONES,URINE NEGATIVE (NEGATIVE); LEUKOCYTE ESTERASE ,URINE NEGATIVE (NEGATIVE); NITRITE, URINE NEGATIVE (NEGATIVE); PH,URINE 6.5 (5.0-8.0); PROTEIN,URINE 1+ mg/dl (NEGATIVE); UGLUCOSE NEGATIVE (NEGATIVE); UROBILINOGEN,URINE 0.2 EU/dL (0.2)
[2019-04-02 23:36] LABS: RBC,URINE 21-50 /HPF (0-2)
[2019-04-02 23:37] LABS: BACTERIA,URINE Few /HPF (None Seen); SQUAMOUS EPITHELIAL CELL,UR Few /HPF (None Seen); URINE AMORPHOUS URATE Moderate /HPF (None Seen)
[2019-04-03] VITALS (53 sets, daily range): BP systolic 92–136; BP diastolic 50–86
[2019-04-03] MEDS: ALBUTEROL FS 2.5 MG/3 ML VIAL.NEB NEB SCH ×4 (01:22→19:27)
[2019-04-03] MEDS: IPRATROPIUM NEB FS 0.5 MG/2.5 ML AMPUL.NEB IH SCH ×4 (01:23→19:27)
[2019-04-03] MEDS ORDERED: ALBUTEROL FS 2.5 MG/3 ML VIAL.NEB NEB PRN (01:30)
[2019-04-03 02:23] LABS: IRON, SERUM 42 ug/dl (50-175); TOTAL IRON BINDING CAPACITY 214 ug/dl (250-450)
[2019-04-03] MEDS: IV NS 0.9% 1,000 ML IV PRN (06:18)
[2019-04-03 06:47] LABS: BASOPHILS % (AUTO) 0.1 % (0.0-2.0); EOSINOPHILS % (AUTO) 0.4 % (0.0-6.0); LYMPHOCYTES # (AUTO) 2.2 /CMM (0.8-4.8); LYMPHOCYTES % (AUTO) 19.5 % (20.0-44.0); MEAN CORPUSCULAR HGB CONC 34 g/dl (31.0-36.0); MEAN CORPUSCULAR VOLUME 100 fL (80-96); MONOCYTES # (AUTO) 1.5 /CMM (0.1-1.30); MONOCYTES % (AUTO) 12.9 % (2.0-12.0); NEUTROPHILS # (AUTO) 7.6 /CMM (1.8-8.9); NEUTROPHILS % (AUTO) 67.1 % (43.0-81.0); PLATELET COUNT (AUTO) 488 /CMM (150-450); WHITE BLOOD COUNT (AUTO) 11.3 K/uL (4.3-11.0)
[2019-04-03 06:54] LABS: THYROID STIMULATING HORMONE 3.905 uIU/mL (0.358-3.74)
[2019-04-03 06:55] LABS: RED BLOOD CELL COUNT(AUTO) 1.88 MIL/uL (4.5-6.0)
[2019-04-03 06:58] LABS: CALCIUM, SERUM 8.4 mg/dL (8.5-10.1); CREATININE 3.5 mg/dL (0.6-1.3); HEMATOCRIT 19 % (39-51); HEMOGLOBIN 6.3 g/dL (13.5-17.5); MAGNESIUM 2.4 mg/dL (1.8-2.4); POTASSIUM 4.2 mmol/L (3.5-5.1)
[2019-04-03] MEDS: DOCUSATE SODIUM LIQ 100 MG/10 ML UDC GT SCH ×2 (08:14→16:39)
[2019-04-03] MEDS: MULTIVIT W/MINERALS 1 TAB TABLET GT SCH (08:14)
[2019-04-03] MEDS: CALCIUM CARBONATE (1250) 500 MG TABLET GT SCH (08:14)
[2019-04-03] MEDS: FERROUS SULFATE UDC 300 MG/5 ML UDC GT SCH ×3 (08:14→16:39)
[2019-04-03] MEDS: LACTOBACILLUS RHAMNOSUS GG 1 EACH CAP.SPRINK GT SCH ×2 (08:14→16:39)
[2019-04-03] MEDS: PANTOPRAZOLE 40 MG/PACK PACK GT SCH ×2 (08:14→16:39)
[2019-04-03] MEDS: VALPROIC ACID 250 MG/5 ML UDC GT SCH ×2 (08:14→21:00)
[2019-04-03] MEDS ORDERED: Medication Not On Formulary EA (Cran/Vitc/Mannose/Inulin/Brom (Uti-Stat Liquid) 30 MG) GT SCH (09:00)
[2019-04-03] MEDS ORDERED: Medication Not On Formulary EA (Multivitamins W-Minerals (Multivitamins With Minerals) 1 GT SCH (09:00)
--- NOTE | 2019-04-03 09:13 | NUR ---
RT NOTE RECEIVED PT MECHANICALLY VENTILATED VIA PORTEX 8 CUFFED TRACHEOSTOMY TUBE. CUFF INFLATED. TRACHEOSTOMY TUBE MIDLINE AND SECURE. VENTILATOR SETTINGS PRESCRIBED. ALARMS SET PER PROTOCOL AND AUDIBLE. VENT PLUGGED IN TO RED OUTLET. AMBU BAG AT BED SIDE. NO DISTRESS NOTED AT MOMENT. Addendum: 04/03/19 at 0915 by NAKITA JIMENEZ RT Amended: Links added.
[2019-04-03 09:23] LABS: LYMPHOCYTES % (MANUAL) 20 % (16-48); MONOCYTES % (MANUAL) 14 % (0-11.0); NEUTROPHILS % (MANUAL) 66 (42-76)
--- NOTE | 2019-04-03 09:37 | NUR ---
INITIAL SOLID WASTE MANAGER NOTE RCVD PT ABLE TO OPEN EYES, NOT FOLLOWING COMMANDS, BILATERAL UPPER EXTREMITIES CONTRACTED. SR ON MONITOR, TOLERATING ORDERED VENT SETTINGS, SHOWING NO SIGNS OF DISTRESS/PAIN, PEG PLACEMENT VERIFIED BY AUSCULTATION/ASPIRATION OF GREEN GASTRIC CONTENTS, PARK TO GRAVITY DRAINING PINK TINGED URINE WITH SOME CLOTS, RIGHT WRIST #20 C/D/I/PATENT, IVF INFUSING ORDERED. PT NPO AT THIS TIME, WILL CONTINUE TO MONITOR PT FOR SAFETY AND COMFORT, CALL LIGHT WITHIN REACH, HEAD OF BED ELEVATED.
--- NOTE | 2019-04-03 14:32 | NUR ---
LEAD ESTHETICIAN NOTE PRBC INFUSION STARTED AND RATE INCREASED TO 125ML/HR, NO SIGNS OF ADVERSE REACTION OBSERVED, WILL CONTINUE TO MONITOR PT. VITAL SIGNS REMAIN STABLE.
--- NOTE | 2019-04-03 18:18 | NUR ---
TRANSFER OUT OF PIPE SUPERVISOR NOTE PT'S CARE ENDORSED TO COREY GOMEZ OVER THE PHONE, PT TRANSPORTED VIA BED SHOWING NO SIGNS OF DISTRESS WITH RT AND RN AT BEDSIDE. PT REMAINED IN SR WITH GOOD O2 SATURATION, BP WNL. SECOND PRBC UNIT INFUSING NO SIGNS OF REACTION AFTER 15 MINUTES OF INFUSING, PT'S VITAL SIGNS REMAINED STABLE.
--- NOTE | 2019-04-03 18:20 | NUR ---
FORMING FIXER NOTES RECEIVED PT IN ROOM 118-2. CARMENZA RN REPORTED. PT CURRENTLY RECEIVING BLOOD TRANSFUSION. VS STABLE. NO S/SX OF REACTION NOTED. ON VENT SETTINGS ORDERED BY MD. NO S/SX OF LABORED BREATHING. PER RN, PT HAS A LOT OF ORAL SECRETION. NEEDS TO BE SUCTIONED FREQUENTLY. IV SITES R WRIST #18. MIDLINE #18g PATENT/INTACT. EYES OPEN. NONVERBAL. GT CLAMPED PER NPO ORDER. PT ON KCI MATTRESS. F/C DRAINING PINK TINGED URINE POSSIBLY D/T INSERTION TRAUMA. BED IN LOCKED/LOWEST POSITION. CALL LIGHT IN REACH. WILL CONT TO MONITOR.
--- NOTE | 2019-04-03 19:29 | NUR ---
OIL PIT ATTENDANT END OF SHIFT NOTES PT ENDORSED TO PM NURSE FOR LIZETH. TOLERATING BLOOD TRANSFUSION. BED IN LOCKED/LOWEST POSITION. CALL LIGHT IN REACH.
--- NOTE | 2019-04-03 19:34 | NUR ---
RT NOTE PT RCVD TRACH'D ON MECHANICAL VENT WITH CHARTED SETTINGS. TX DELMAR WELL. SX DONE. PT TRACH IS PATENT AND SECURE. VENT IS PLUGGED INTO RED OUTLET. ALARMS ARE ON AND AUDIBLE. AMBU BAG AT BEDSIDE. WILL CONTINUE TO MONITOR. Addendum: 04/03/19 at 1934 by LEROY VALLEJO RT Amended: Links added.
--- NOTE | 2019-04-03 20:15 | NUR ---
MS RN OPENING NOTES RECEIVED REPORT FROM PATRICIA NICOLE. PATIENT OBTUNDED, OPENS/CLOSES EYES SPONTANEOUSLY. BREATHING EVEN & UNLABORED W/ TRACH INTACT & TOLERATING VENT SETTINGS AC 10, TV 550, FIO2 40%, PEEP 5. NO S/S OF RESPIRATORY DISTRESS NOTED. ON TELE W/ SINUS RHYTHM, HR 90S. RIGHT WRIST IV #18 & RIGHT UPPER ARM MIDLINE INTACT & PATENT W/ DRESSING CDI & ONGOING BLOOD TRANSFUSION. G-TUBE INTACT W/ MINIMAL BLEEDING NOTED AROUND STOMA SITE. CLAMPED @ THIS TIME. NO S/S OF PAIN OR DISCOMFORT @ THIS TIME. SAFETY MEASURES IN PLACE W/ SIDE RAILS UP & BED ALARM ON. HOB ELEVATED FOR ASPIRATION PRECAUTIONS. WILL CONTINUE TO MONITOR.
--- NOTE | 2019-04-03 20:20 | NUR ---
SENIOR IT RECRUITER NOTES BLOOD TRANSFUSION ENDED W/ NO ADVERSE REACTIONS NOTED & VSS. H/H ORDERED.
[2019-04-03] MEDS: TAMSULOSIN 0.4 MG CAP.SR.24H GT SCH (21:25)
[2019-04-03] MEDS: INSULIN GLARGINE, 100 UNIT/ML CARTRIDGE SQ SCH (21:25)
[2019-04-04] VITALS: BP 129/85
[2019-04-04] MEDS: ALBUTEROL FS 2.5 MG/3 ML VIAL.NEB NEB SCH ×4 (00:56→19:30)
[2019-04-04] MEDS: IPRATROPIUM NEB FS 0.5 MG/2.5 ML AMPUL.NEB IH SCH ×4 (00:56→19:30)
--- NOTE | 2019-04-04 03:14 | NUR ---
RT NOTE SPUTUM SAMPLE COLLECTED WITH NO COMPLICATIONS. COREY SALGUERO AWARE.
[2019-04-04 04:00] VITALS: BP 131/70
[2019-04-04 07:17] LABS: BASOPHILS % (AUTO) 0.2 % (0.0-2.0); EOSINOPHILS % (AUTO) 0.2 % (0.0-6.0); HEMATOCRIT 26 % (39-51); HEMOGLOBIN 8.7 g/dL (13.5-17.5); LYMPHOCYTES # (AUTO) 0.9 /CMM (0.8-4.8); LYMPHOCYTES % (AUTO) 5.7 % (20.0-44.0); MEAN CORPUSCULAR HGB CONC 34 g/dl (31.0-36.0); MEAN CORPUSCULAR VOLUME 98 fL (80-96); MONOCYTES # (AUTO) 2.5 /CMM (0.1-1.30); MONOCYTES % (AUTO) 16.7 % (2.0-12.0); NEUTROPHILS # (AUTO) 11.7 /CMM (1.8-8.9); NEUTROPHILS % (AUTO) 77.2 % (43.0-81.0); PLATELET COUNT (AUTO) 503 /CMM (150-450); RED BLOOD CELL COUNT(AUTO) 2.64 MIL/uL (4.5-6.0); WHITE BLOOD COUNT (AUTO) 15.2 K/uL (4.3-11.0)
[2019-04-04 07:24] LABS: CALCIUM, SERUM 8.7 mg/dL (8.5-10.1); CREATININE 3.7 mg/dL (0.6-1.3); MAGNESIUM 2.4 mg/dL (1.8-2.4); POTASSIUM 3.7 mmol/L (3.5-5.1)
--- NOTE | 2019-04-04 07:25 | NUR ---
RN OPENING NOTES RECEIVED REPORT FROM DIRECTOR PATIENT FINANCIAL SERVICES RN. PATIENT OBTUNDED, OPENS/CLOSES EYES SPONTANEOUSLY. BREATHING EVEN & UNLABORED W/ TRACH INTACT & TOLERATING VENT SETTINGS AC 10, TV 550, FIO2 40%, PEEP 5. NO S/S OF RESPIRATORY DISTRESS NOTED. ON TELE W/ SINUS RHYTHM, HR 90S. RIGHT WRIST IV #18 & RIGHT UPPER ARM MIDLINE INTACT & PATENT W/ DRESSING CDI. G-TUBE INTACT W/ MINIMAL BLEEDING NOTED AROUND STOMA SITE. CLAMPED @ THIS TIME. NO S/S OF PAIN OR DISCOMFORT @ THIS TIME. SAFETY MEASURES IN PLACE W/ SIDE RAILS UP & BED ALARM ON. HOB ELEVATED FOR ASPIRATION PRECAUTIONS. WILL CONTINUE TO MONITOR.
[2019-04-04 08:00] VITALS: BP 128/68
[2019-04-04 08:25] LABS: D-DIMER 2.98 mg/L(FEU (0.17-0.50)
[2019-04-04] MEDS: LACTOBACILLUS RHAMNOSUS GG 1 EACH CAP.SPRINK GT SCH ×2 (09:00→17:44)
[2019-04-04] MEDS: CALCIUM CARBONATE (1250) 500 MG TABLET GT SCH (09:00)
[2019-04-04] MEDS: FERROUS SULFATE UDC 300 MG/5 ML UDC GT SCH ×2 (09:00→13:35)
[2019-04-04] MEDS: VALPROIC ACID 250 MG/5 ML UDC GT SCH ×2 (09:00→22:00)
[2019-04-04] MEDS: MULTIVIT W/MINERALS 1 TAB TABLET GT SCH (09:00)
[2019-04-04] MEDS: PANTOPRAZOLE 40 MG/PACK PACK GT SCH ×2 (09:00→17:44)
[2019-04-04] MEDS: DOCUSATE SODIUM LIQ 100 MG/10 ML UDC GT SCH ×2 (09:00→17:44)
[2019-04-04] MEDS: IV NS 0.9% 1,000 ML IV PRN (09:36)
[2019-04-04 10:19] LABS: BAND % (MANUAL) 2 % (0.0-5.0); LYMPHOCYTES % (MANUAL) 6 % (16-48); MONOCYTES % (MANUAL) 18 % (0-11.0); NEUTROPHILS % (MANUAL) 74 (42-76)
[2019-04-04 12:00] VITALS: BP 125/72
[2019-04-04] MEDS: PIPERACILLIN /TAZOBACTAM 2.25 G in IV D5W 50 ML IV SCH ×2 (13:35→21:59)
[2019-04-04 16:00] VITALS: BP 114/80
[2019-04-04] MEDS: JEVITY 1.2 CAL 1,000 ML BOTTLE GT PRN (16:01)
--- NOTE | 2019-04-04 18:40 | NUR ---
RN CLOSING NOTES GAVE REPORT TO FABRIC PATTERN GRADER RN. PATIENT OBTUNDED, OPENS/CLOSES EYES SPONTANEOUSLY. BREATHING EVEN & UNLABORED W/ TRACH INTACT & TOLERATING VENT SETTINGS AC 10, TV 550, FIO2 40%, PEEP 5. NO S/S OF RESPIRATORY DISTRESS NOTED. ON TELE W/ SINUS RHYTHM, HR 90S. RIGHT WRIST IV #18 & RIGHT UPPER ARM MIDLINE INTACT & PATENT W/ DRESSING CDI. G-TUBE INTACT AND FEEDING RUNNING JEVITY 1.2 AT 30 ML.NO RESIDUAL NOTED. NO S/S OF PAIN OR DISCOMFORT @ THIS TIME. SAFETY MEASURES IN PLACE W/ SIDE RAILS UP & BED ALARM ON. HOB ELEVATED FOR ASPIRATION PRECAUTIONS. WILL ENDORSE CONTINUITY OF CARE TO FABRIC PATTERN GRADER RN.
[2019-04-04 20:00] VITALS: BP 143/83
--- NOTE | 2019-04-04 20:00 | NUR ---
RN OPENING NOTES RECEIVED REPORT FROM AM SHIFT RN. PATIENT OBTUNDED, OPENS/CLOSES EYES SPONTANEOUSLY. BREATHING EVEN & UNLABORED W/ TRACH INTACT & TOLERATING VENT SETTINGS AC 10, TV 550, FIO2 40%, PEEP 5. NO S/S OF RESPIRATORY DISTRESS NOTED. ON TELE W/ SINUS TACHY, HR 112. RIGHT WRIST IV #22 & RIGHT UPPER ARM MIDLINE INTACT & PATENT W/ DRESSING CDI. G-TUBE INTACT W/O BLEEDING WITH GTF AT 30ML/HR. NO S/S OF PAIN OR DISCOMFORT @ THIS TIME. SAFETY MEASURES IN PLACE W/ SIDE RAILS UPX2 & BED ALARM ON. HOB ELEVATED FOR ASPIRATION PRECAUTIONS. SEIZURE PRECAUTIONS ARE IN PLACE. PATIENT TURNED AND REPOSITIONED, SKIN ASSESSMENT IS DONE. WILL CONTINUE TO MONITOR PATIENT CLOSELY.
[2019-04-04] MEDS: TAMSULOSIN 0.4 MG CAP.SR.24H GT SCH (21:59)
[2019-04-04] MEDS: INSULIN GLARGINE, 100 UNIT/ML CARTRIDGE SQ SCH (22:00)
--- NOTE | 2019-04-04 22:40 | NUR ---
rn notes patient's blood sugar is 115 Lantus 12unit at 2200 will be held for now because patient has new start of GTF at 30ml/hr. will continue to monitor patient closely.
[2019-04-05] VITALS (7 sets, daily range): BP systolic 122–151; BP diastolic 70–85
[2019-04-05] MEDS: ALBUTEROL FS 2.5 MG/3 ML VIAL.NEB NEB SCH ×4 (01:08→20:10)
[2019-04-05] MEDS: IPRATROPIUM NEB FS 0.5 MG/2.5 ML AMPUL.NEB IH SCH ×4 (01:08→20:10)
[2019-04-05] MEDS: IV NS 0.9% 1,000 ML IV PRN (01:49)
[2019-04-05] MEDS: PIPERACILLIN /TAZOBACTAM 2.25 G in IV D5W 50 ML IV SCH ×3 (05:49→21:23)
[2019-04-05 06:20] LABS: BASOPHILS % (AUTO) 0.1 % (0.0-2.0); EOSINOPHILS % (AUTO) 1.2 % (0.0-6.0); HEMATOCRIT 27 % (39-51); LYMPHOCYTES # (AUTO) 1.5 /CMM (0.8-4.8); LYMPHOCYTES % (AUTO) 11.6 % (20.0-44.0); MEAN CORPUSCULAR HGB CONC 33 g/dl (31.0-36.0); MEAN CORPUSCULAR VOLUME 99 fL (80-96); MONOCYTES % (AUTO) 15.9 % (2.0-12.0); NEUTROPHILS # (AUTO) 9.2 /CMM (1.8-8.9); NEUTROPHILS % (AUTO) 71.2 % (43.0-81.0); PLATELET COUNT (AUTO) 471 /CMM (150-450); RED BLOOD CELL COUNT(AUTO) 2.73 MIL/uL (4.5-6.0); WHITE BLOOD COUNT (AUTO) 12.9 K/uL (4.3-11.0)
[2019-04-05 06:43] LABS: CALCIUM, SERUM 8.4 mg/dL (8.5-10.1); CREATININE 3.8 mg/dL (0.6-1.3); POTASSIUM 3.6 mmol/L (3.5-5.1)
--- NOTE | 2019-04-05 07:56 | NUR ---
LAWN TECHNICIAN NOTE PATIENT IN BED , ALL NEEDS ATTENDED WITH TRACH TO VENT SETTING ORDERED , AMBU BAG AT HOB AT ALL TIME , ON TELE MONITOR ST 107 , WITH PARK CATH TO GRAVITY WITH YELLOW COLOR URINE , RT FA MID LINE IN PLACE ON IVF ORDERED , WITH G TUBE FEEDING AT 30 ML PER HOUR ,TOLERATED WELL , ON KCI MATRASS FOR SKIN MANAGEMENT , WILL CONT TO MONITOR CLOSELY
--- NOTE | 2019-04-05 08:00 | NUR ---
REDRYING MACHINE OPERATOR NOTE NOTED URINE WITH SOME WITH BLOODY SEDIMENTS CHRISTOPHE COLOR
[2019-04-05] MEDS: DOCUSATE SODIUM LIQ 100 MG/10 ML UDC GT SCH ×2 (08:43→16:28)
[2019-04-05] MEDS: VALPROIC ACID 250 MG/5 ML UDC GT SCH ×2 (08:43→21:24)
[2019-04-05] MEDS: LACTOBACILLUS RHAMNOSUS GG 1 EACH CAP.SPRINK GT SCH ×2 (08:43→16:28)
[2019-04-05] MEDS: CALCIUM CARBONATE (1250) 500 MG TABLET GT SCH (08:44)
[2019-04-05] MEDS: MULTIVIT W/MINERALS 1 TAB TABLET GT SCH (08:44)
[2019-04-05] MEDS: PANTOPRAZOLE 40 MG/PACK PACK GT SCH ×2 (08:44→16:28)
--- NOTE | 2019-04-05 09:11 | NUR ---
ALARM INVESTIGATOR NOTE SEEN BY DR LORA FACILITIES DIRECTOR AWARE THAT PATIENT STARTED YESTERDAY TUBE FEEDING TOLERATED WELL , CONT ON CURRENT VENT SETTING
[2019-04-05 09:36] LABS: BAND % (MANUAL) 2 % (0.0-5.0); LYMPHOCYTES % (MANUAL) 14 % (16-48); MONOCYTES % (MANUAL) 15 % (0-11.0); NEUTROPHILS % (MANUAL) 69 (42-76)
--- NOTE | 2019-04-05 11:17 | NUR ---
SHOT COAT TENDER NOTE SPOKE WITH ZAC DNP NOTIFIED THAT URINE WITH BLOODY SEDIMENTS CHRISTOPHE COLOR AND OK T ORDER ACCU CHECK , DR FRANK AWARE OF CT ABDOMEN RESULT
[2019-04-05] MEDS ORDERED: IV NS 0.9% 1,000 ML IV PRN (11:22)
--- NOTE | 2019-04-05 12:21 | NUR ---
ANIMAL ATTENDANT NOTE PER ZAC DNP OK TO ORDER ACCU CHECK ,PATIENT WITH HX DM
[2019-04-05] MEDS ORDERED: DEXTROSE 50%-WATER 50 ML DISP.SYRIN IV PRN (12:30)
[2019-04-05] MEDS ORDERED: INSULIN REGULAR, HUMAN 100 UNIT/ML 3 ML VIAL SQ PRN (12:30)
--- NOTE | 2019-04-05 13:18 | NUR ---
KITCHEN FOOD SERVER NOTE PER ZAC DNP OK TO STOP IVF ,STARTED ON ON G TUBE FEEDING AT THIS TIME AT 35 ML PER HOUR AND START TKO IVF , ORDER CARRIED OUT
[2019-04-05] MEDS ORDERED: IV NS 0.9% 250 ML IV PRN (13:30)
[2019-04-05] MEDS: SOD FERRIC GLUC 125 MG in IV NS 0.9% 100 ML IV SCH (14:27)
--- NOTE | 2019-04-05 15:00 | NUR ---
REPLANTING MACHINE CREWMAN NOTE ALL NEEDS ATTENDED TURN REPOSITION INCREASED TO 35 ML PER HOUR G TUBE FEEDING ,NO RESIDUAL NOTED, WILL CONT TO MONITOR
[2019-04-05] MEDS: BLOOD SUGAR DIAGNOSTIC 1 EACH STRIP IN SCH (17:02)
--- NOTE | 2019-04-05 17:06 | NUR ---
RT NOTE: RECEIVED TRACH PT ON ORDERED NOTED VENT SETTINGS. NO RESPIRATORY DISTRESS NOTED. TRACH CHECKED SECURE AND PATENT. SXD AND LAVAGED PT Q ROUND AND NEEDED. TXS GIVEN ORDERED WITH NO ADVERSE REACTIONS NOTED. TRACH CARE DONE. SPARE TRACH AND AMBU BAG @ BEDSIDE. VENT PLUGGED INTO RED OUTLET. ALARMS CHECKED AND AUDIBLE. WILL CONTINUE TO MONITOR. Addendum: 04/05/19 at 1708 by EMEKA NORMAN RT Amended: Links added.
--- NOTE | 2019-04-05 17:53 | NUR ---
TECHNICAL SUPPORT COORDINATOR NOTE ORAL AND TRACH SUCTION DONE , ALL NEEDS ATTENDED, KEEP HOB ELEVATED , WILL CONT TO MONITOR
--- NOTE | 2019-04-05 18:47 | NUR ---
RAIL GRINDER NOTE CONT ON VENT SETTING ORDERED, KEEP HOB ELEVATED AT ALL TIME, CONT G TUBE FEEDING AT 35 ML PER HOUR, BED IN LOWEST AND LOCKED POSITION , WITH PARK CATH TO GRAVITY , URINATE WELL 1400 DURING THIS SHIFT , KEEP CLEAN DRY , WILL CONT TO MONITOR CLOSELY
[2019-04-05] MEDS: TAMSULOSIN 0.4 MG CAP.SR.24H GT SCH (21:23)
[2019-04-05] MEDS: INSULIN GLARGINE, 100 UNIT/ML CARTRIDGE SQ SCH (21:48)
--- NOTE | 2019-04-05 21:49 | NUR ---
blood sugar 128mg/dl. was 90mg at 1700. dose held as the blood sugar was low parameters, tolerating the feding well
--- NOTE | 2019-04-05 22:34 | NUR ---
cleaned and kept dry. turned to sides
--- NOTE | 2019-04-05 23:18 | NUR ---
feeding tolerating well with no residuals , increased to 40ml/hour with the goal of 60ml/hour.
[2019-04-06] VITALS: BP_SYST 121; BP_DIAS 63; BP_DIAS 67
--- NOTE | 2019-04-06 00:17 | NUR ---
blood sugar 124mg/dl. no coverage given
[2019-04-06] MEDS: ALBUTEROL FS 2.5 MG/3 ML VIAL.NEB NEB SCH ×5 (01:16→19:29)
[2019-04-06] MEDS: IPRATROPIUM NEB FS 0.5 MG/2.5 ML AMPUL.NEB IH SCH ×4 (01:16→19:29)
[2019-04-06] MEDS: JEVITY 1.2 CAL 1,000 ML BOTTLE GT PRN (02:22)
[2019-04-06 04:00] VITALS: BP 124/82
[2019-04-06] MEDS: PIPERACILLIN /TAZOBACTAM 2.25 G in IV D5W 50 ML IV SCH ×3 (05:05→20:30)
[2019-04-06] MEDS: BLOOD SUGAR DIAGNOSTIC 1 EACH STRIP IN SCH ×5 (05:44→23:22)
--- NOTE | 2019-04-06 05:44 | NUR ---
b,lood sugar 1114 mg/dllantus dose for 2200 hours held for blood sugar 124mg/dl
[2019-04-06 07:09] LABS: BASOPHILS % (AUTO) 0.2 % (0.0-2.0); EOSINOPHILS % (AUTO) 2.8 % (0.0-6.0); HEMATOCRIT 27 % (39-51); HEMOGLOBIN 8.8 g/dL (13.5-17.5); LYMPHOCYTES # (AUTO) 1.8 /CMM (0.8-4.8); MEAN CORPUSCULAR HGB CONC 33 g/dl (31.0-36.0); MEAN CORPUSCULAR VOLUME 99 fL (80-96); MONOCYTES # (AUTO) 1.9 /CMM (0.1-1.30); MONOCYTES % (AUTO) 14.3 % (2.0-12.0); NEUTROPHILS % (AUTO) 68.7 % (43.0-81.0); PLATELET COUNT (AUTO) 488 /CMM (150-450); RED BLOOD CELL COUNT(AUTO) 2.68 MIL/uL (4.5-6.0); WHITE BLOOD COUNT (AUTO) 13.1 K/uL (4.3-11.0)
[2019-04-06 07:30] LABS: CALCIUM, SERUM 8.7 mg/dL (8.5-10.1); CREATININE 4.1 mg/dL (0.6-1.3); POTASSIUM 3.9 mmol/L (3.5-5.1)
--- NOTE | 2019-04-06 07:30 | NUR ---
RN OPENING NOTE RECEIVED PATIENT IN BED RESTING COMFORTABLY. NO FACIAL GRIMACING OR ACUTE DISTRESS AT THIS TIME. RESPIRATION EVEN AND UNLABORED. SKIN IS DRY WARM TO TOUCH. NO SOB. HOB ELEVATED AT ALL TIMES TO PREVENT ASPIRATION. PATIENT NOTED WITH IV ACCESS ON R WRIST AND BO MIDLINE. PATENT AND INTACT. FLUSHING WELL. GT NOTED WELL. INTACT AND PATENT. NO RESIDUALS. ALL NEEDS ANTICIPATED. KEPT CLEAN AND DRY. CALL LIGHT WITHIN REACHED. BED LOCKED AND IN LOWEST POSITION. SAFETY MAINTAINED. WILL CONTINUE TO MONITOR CLOSELY.
--- NOTE | 2019-04-06 07:50 | NUR ---
REPORT GIVEN TO THE DAY SHIFT RN THAT THE PATIENT HAS NO BM FOR 2 DAYS AND THE STOOL FOR OB NOT COLLECTED, NEEDS TO INFOR THE ATTENDING PHYSICIAN FOR ORDERS FOR CONSTIPATION
[2019-04-06 08:00] VITALS: BP 155/85
[2019-04-06 08:06] LABS: IMMUNOGLOBULIN A, SERUM 339 mg/dL (90-386); IMMUNOGLOBULIN G, SERUM 3982 mg/dL (700-1600); IMMUNOGLOBULIN M, SERUM 50 mg/dL (20-172)
[2019-04-06] MEDS: VALPROIC ACID 250 MG/5 ML UDC GT SCH ×2 (08:50→20:30)
[2019-04-06] MEDS: LACTOBACILLUS RHAMNOSUS GG 1 EACH CAP.SPRINK GT SCH ×2 (08:50→16:05)
[2019-04-06] MEDS: CALCIUM CARBONATE (1250) 500 MG TABLET GT SCH (08:50)
[2019-04-06] MEDS: PANTOPRAZOLE 40 MG/PACK PACK GT SCH ×2 (08:50→16:05)
[2019-04-06] MEDS: DOCUSATE SODIUM LIQ 100 MG/10 ML UDC GT SCH ×2 (08:50→16:05)
[2019-04-06] MEDS: MULTIVIT W/MINERALS 1 TAB TABLET GT SCH (08:50)
[2019-04-06 12:00] VITALS: BP 137/80
[2019-04-06] MEDS: SOD FERRIC GLUC 125 MG in IV NS 0.9% 100 ML IV SCH (14:26)
[2019-04-06 16:00] VITALS: BP 140/95
--- NOTE | 2019-04-06 18:45 | NUR ---
RN NOTES ENDORSED TO PM NURSE TO COLLECT BM FOR OCCULT BLOOD IF AVAILABLE.
--- NOTE | 2019-04-06 18:50 | NUR ---
RN CLOSING NOTES PATIENT CONTINUES TO REMAIN IS STABLE CONDITION. PROVIDED COMFORT AND SAFETY. NO PAIN OR ACUTE DISTRESS AT THIS TIME. RESPIRATION EVEN AND UNLABORED. SKIN IS DRY WARM TO TOUCH. HOB ELEVATED AT ALL TIMES TO PREVENT ASPIRATION. PATIENT NOTED WITH IV ACCESS ON R WRIST AND BO MIDLINE. PATENT AND INTACT. FLUSHING WELL. GT NOTED WELL WITH JEVITY 1.2 60CC/HR. INTACT AND PATENT. NO RESIDUALS. ALL NEEDS ANTICIPATED. KEPT CLEAN AND DRY. CALL LIGHT WITHIN REACHED. BED LOCKED AND IN LOWEST POSITION. SAFETY MAINTAINED. WILL CONTINUE TO MONITOR CLOSELY. ENDORSED TO PM NURSE FOR LIZETH.
[2019-04-06 20:00] VITALS: BP 154/71
[2019-04-06] MEDS: TAMSULOSIN 0.4 MG CAP.SR.24H GT SCH (21:43)
[2019-04-06] MEDS: INSULIN GLARGINE, 100 UNIT/ML CARTRIDGE SQ SCH (22:00)
[2019-04-07] VITALS (7 sets, daily range): BP systolic 129–161; BP diastolic 78–90
[2019-04-07] MEDS: IPRATROPIUM NEB FS 0.5 MG/2.5 ML AMPUL.NEB IH SCH ×4 (02:09→19:40)
[2019-04-07] MEDS: ALBUTEROL FS 2.5 MG/3 ML VIAL.NEB NEB SCH ×4 (02:09→19:40)
[2019-04-07] MEDS: PIPERACILLIN /TAZOBACTAM 2.25 G in IV D5W 50 ML IV SCH ×3 (05:02→21:03)
[2019-04-07] MEDS: JEVITY 1.2 CAL 1,000 ML BOTTLE GT PRN (05:02)
[2019-04-07] MEDS: BLOOD SUGAR DIAGNOSTIC 1 EACH STRIP IN SCH ×4 (05:02→23:47)
[2019-04-07 07:11] LABS: BASOPHILS % (AUTO) 0.3 % (0.0-2.0); HEMATOCRIT 29 % (39-51); HEMOGLOBIN 9.5 g/dL (13.5-17.5); LYMPHOCYTES # (AUTO) 2.1 /CMM (0.8-4.8); LYMPHOCYTES % (AUTO) 16.4 % (20.0-44.0); MEAN CORPUSCULAR HGB CONC 33 g/dl (31.0-36.0); MEAN CORPUSCULAR VOLUME 101 fL (80-96); MONOCYTES # (AUTO) 1.8 /CMM (0.1-1.30); MONOCYTES % (AUTO) 14.2 % (2.0-12.0); NEUTROPHILS # (AUTO) 8.4 /CMM (1.8-8.9); NEUTROPHILS % (AUTO) 66.1 % (43.0-81.0); PLATELET COUNT (AUTO) 443 /CMM (150-450); RED BLOOD CELL COUNT(AUTO) 2.87 MIL/uL (4.5-6.0); WHITE BLOOD COUNT (AUTO) 12.7 K/uL (4.3-11.0)
--- NOTE | 2019-04-07 07:18 | NUR ---
LEAD MECHANICAL ENGINEER NOTES NO ACUTE CHANGES NOTED DURING THE SHIFT. PROVIDED COMFORT AND SAFETY. NO RESPIRATORY DISTRESS NOTED. WILL ENDORSE TO THE AM NURSE FOR CONTINUITY OF CARE.
[2019-04-07 07:26] LABS: BILIRUBIN,TOTAL 0.3 mg/dL (0.2-1.0); CALCIUM, SERUM 8.7 mg/dL (8.5-10.1); CREATININE 4.4 mg/dL (0.6-1.3); MAGNESIUM 2.2 mg/dL (1.8-2.4); POTASSIUM 4.5 mmol/L (3.5-5.1); TOTAL PROTEIN, SERUM 8.9 g/dL (6.4-8.2)
[2019-04-07 07:27] LABS: ALBUMIN 1.3 g/dL (3.4-5.0)
[2019-04-07 08:08] LABS: *SPE A/G RATIO 0.3 (0.7-1.7); *SPE ALBUMIN 1.7 g/dL (2.9-4.4); *SPE ALPHA-1-GLOBULIN 0.5 g/dL (0.0-0.4); *SPE ALPHA-2-GLOBULIN 0.8 g/dL (0.4-1.0); *SPE GLOBULIN, TOTAL 5.9 g/dL (2.2-3.9); *SPE M-SPIKE Not Observed g/dL (Not Observed); *SPEGAMMA GLOBULIN 3.6 g/dL (0.4-1.8)
[2019-04-07 08:38] LABS: FREE PSA 27.91 ng/mL (0.00-45); PROSTATE SPECIFIC ANTIGEN SCR 372.77 ng/mL (0.00-4.00)
[2019-04-07] MEDS: LACTOBACILLUS RHAMNOSUS GG 1 EACH CAP.SPRINK GT SCH ×2 (09:37→16:52)
[2019-04-07] MEDS: DOCUSATE SODIUM LIQ 100 MG/10 ML UDC GT SCH ×2 (09:37→16:52)
[2019-04-07] MEDS: VALPROIC ACID 250 MG/5 ML UDC GT SCH ×2 (09:38→21:01)
[2019-04-07] MEDS: CALCIUM CARBONATE (1250) 500 MG TABLET GT SCH (09:38)
[2019-04-07] MEDS: PANTOPRAZOLE 40 MG/PACK PACK GT SCH ×2 (09:38→16:52)
[2019-04-07] MEDS: MULTIVIT W/MINERALS 1 TAB TABLET GT SCH (09:38)
--- NOTE | 2019-04-07 10:03 | NUR ---
RN NOTE: CALLED AND SPOKE WITH ADALBERTO MAIN (DAUGHTER) AND INFORMED HER ABOUT THE CT PERCUTANEOUS NEPHROSTOMY ORDER PER DR. Percy RINALDI. VERIFIED WITH DAUGHTER ADALBERTO THAT SHE WAS CONSENTING FOR THE PROCEDURE. ANOTHER NURSE Raymon MENDEZ RN VERIFIED THE CONSENT OVER THE PHONE TO THE DAUGHTER ADALBERTO. SIGNED AND FILED TO THE PATIENT'S CHART.
[2019-04-07] MEDS: SOD FERRIC GLUC 125 MG in IV NS 0.9% 100 ML IV SCH (14:32)
--- NOTE | 2019-04-07 16:30 | NUR ---
RN NOTE: STOOL FOR OCCULT BLOOD WAS COLLECTED AND SENT TO LAB. LABELED, INITIALED AND DATED TODAY.
[2019-04-07 18:49] LABS: OCCULT BLOOD STOOL NEGATIVE (NEGATIVE)
--- NOTE | 2019-04-07 19:34 | NUR ---
RN NOTE: BEDSIDE REPORT GIVEN TO PM SHIFT NURSE FOR CONTINUITY OF CARE. WILL ENDORSE TO PM SHIFT NURSE THAT PATIENT WILL BE NPO AFTER MIDNIGHT FOR THE PROCEDURE IN AM.
[2019-04-07] MEDS: TAMSULOSIN 0.4 MG CAP.SR.24H GT SCH (21:01)
[2019-04-07] MEDS: INSULIN GLARGINE, 100 UNIT/ML CARTRIDGE SQ SCH (22:00)
[2019-04-08] VITALS: BP 138/83
[2019-04-08] MEDS: ALBUTEROL FS 2.5 MG/3 ML VIAL.NEB NEB SCH ×4 (01:27→20:20)
[2019-04-08] MEDS: IPRATROPIUM NEB FS 0.5 MG/2.5 ML AMPUL.NEB IH SCH ×4 (01:27→20:20)
[2019-04-08 04:00] VITALS: BP 132/73
[2019-04-08] MEDS: PIPERACILLIN /TAZOBACTAM 2.25 G in IV D5W 50 ML IV SCH ×3 (05:31→21:50)
[2019-04-08] MEDS: BLOOD SUGAR DIAGNOSTIC 1 EACH STRIP IN SCH ×3 (05:35→17:02)
[2019-04-08 08:00] VITALS: BP 140/71
[2019-04-08 08:04] LABS: BASOPHILS % (AUTO) 0.2 % (0.0-2.0); EOSINOPHILS % (AUTO) 2.7 % (0.0-6.0); HEMATOCRIT 28 % (39-51); LYMPHOCYTES # (AUTO) 1.1 /CMM (0.8-4.8); MEAN CORPUSCULAR HGB CONC 32 g/dl (31.0-36.0); MEAN CORPUSCULAR VOLUME 101 fL (80-96); MONOCYTES # (AUTO) 1.7 /CMM (0.1-1.30); MONOCYTES % (AUTO) 13.5 % (2.0-12.0); NEUTROPHILS # (AUTO) 9.2 /CMM (1.8-8.9); NEUTROPHILS % (AUTO) 74.6 % (43.0-81.0); PLATELET COUNT (AUTO) 389 /CMM (150-450); RED BLOOD CELL COUNT(AUTO) 2.75 MIL/uL (4.5-6.0); WHITE BLOOD COUNT (AUTO) 12.3 K/uL (4.3-11.0)
[2019-04-08 08:22] LABS: CREATININE 4.4 mg/dL (0.6-1.3); POTASSIUM 4.1 mmol/L (3.5-5.1)
[2019-04-08] MEDS: DOCUSATE SODIUM LIQ 100 MG/10 ML UDC GT SCH ×2 (08:42→16:06)
[2019-04-08] MEDS: LACTOBACILLUS RHAMNOSUS GG 1 EACH CAP.SPRINK GT SCH ×2 (08:42→16:06)
[2019-04-08] MEDS: MULTIVIT W/MINERALS 1 TAB TABLET GT SCH (08:43)
[2019-04-08] MEDS: VALPROIC ACID 250 MG/5 ML UDC GT SCH ×2 (08:43→21:49)
[2019-04-08] MEDS: CALCIUM CARBONATE (1250) 500 MG TABLET GT SCH (08:43)
[2019-04-08] MEDS: PANTOPRAZOLE 40 MG/PACK PACK GT SCH ×2 (08:43→16:06)
[2019-04-08] MEDS ORDERED: LIDOCAINE 1% INJ 50 ML MDV IJ ONE (10:43)
--- NOTE | 2019-04-08 11:15 | NUR ---
RN Note: Pt picked up by RN and RT for CT guided nephrostomy tube insertion.
[2019-04-08 12:00] VITALS: BP 135/76
[2019-04-08] MEDS ORDERED: NALOXONE PREFILLED SYRINGE 2 MG/2 ML SYRINGE IV ONE (12:00)
[2019-04-08] MEDS ORDERED: FENTANYL PF 250MCG/5ML AMPUL IV ONE (12:00)
[2019-04-08] MEDS ORDERED: MIDAZOLAM HCL 5MG/ML VIAL 25 MG/5 ML VIAL IV ONE (12:00)
--- NOTE | 2019-04-08 13:36 | NUR ---
RN NOTE 1205: Patient in CT bed for right nephrostomy tube placement by Dr. Mcneil, time-out done. 1250: Done with procedure, no any significant changes noted. VSS. No meds given. Patient tolerated procedure. 1310: Transferred back to room 118-2, via bed using ACLS protocol. MD gathered urine in a syringe for specimen as needed, endorsed to primary nurse.
[2019-04-08] MEDS: SOD FERRIC GLUC 125 MG in IV NS 0.9% 100 ML IV SCH (14:39)
--- NOTE | 2019-04-08 15:00 | NUR ---
RN Note: Edmar Bautista, TERESA rounds; updated on pt status. Restarted on tube feeding, tolerated well. R Nephrostomy with blood tinged output; FC with hematuria. Cultures sent to lab as ordered.
[2019-04-08 16:00] VITALS: BP 152/98
--- NOTE | 2019-04-08 19:00 | NUR ---
RN Note: Bedside report given to RN for LIZETH. Pt in stable condition.
--- NOTE | 2019-04-08 19:05 | NUR ---
LEATHER STAKER OPENING NOTES RECEIVED PATIENT IN BED, AWAKE, OBTUNDED; NO FACIAL GRIMACING OR ACUTE DISTRESS NOTED AT THIS TIME. PATIENT ON TRACH/VENT SETTINGS ORDERED, TOLERATING WELL. RESPIRATION EVEN AND UNLABORED, SPO2 100%. ON TELE MONITOR SINUS TACHY WITH HR 101. SKIN IS DRY AND WARM TO TOUCH. HOB ELEVATED AT ALL TIMES TO PREVENT ASPIRATION. PATIENT NOTED WITH IV ACCESS ON R WRIST AND BO MIDLINE, IV SITES PATENT AND INTACT. FLUSHING WELL. GT NOTED RUNNING ORDERED, SITE WITH LEAKAGE NOTED, WILL PUT DRESSING TO PREVENT LEAK. NEPHROSTOMY NOTED, DRAINING WELL WITH BLOODY DRAINAGE. PARK CATH OFF THE FLOOR, DRAINING WELL WITH HEMATURIA NOTED. WILL KEEP PATIENT CLEAN AND DRY. SAFETY MEASURES MAINTAINED: CALL LIGHT WITHIN REACH, BED LOCKED AND IN LOWEST POSITION, CALL LIGHT WITHIN REACH. WILL CONTINUE TO MONITOR CLOSELY.
[2019-04-08 20:00] VITALS: BP 160/95
[2019-04-08] MEDS: TAMSULOSIN 0.4 MG CAP.SR.24H GT SCH (21:50)
[2019-04-08] MEDS: INSULIN GLARGINE, 100 UNIT/ML CARTRIDGE SQ SCH (22:00)
--- NOTE | 2019-04-08 22:30 | NUR ---
FIXED WING AIRCRAFT FLIGHT ENGINEER NOTES BLOOD SUGAR AT 1625 90, BLOOD SUGAR AT 2230 84; WILL HOLD INSULIN LANTUS D/T BLOOD SUGAR TRENDING DOWN. PT ON GTUBE FEEDING, TOLERATING WELL. WILL CONT TO MONITOR.
[2019-04-09] VITALS: BP 154/86
[2019-04-09] MEDS: BLOOD SUGAR DIAGNOSTIC 1 EACH STRIP IN SCH ×5 (00:44→23:01)
[2019-04-09] MEDS: ALBUTEROL FS 2.5 MG/3 ML VIAL.NEB NEB SCH ×4 (01:12→19:31)
[2019-04-09] MEDS: IPRATROPIUM NEB FS 0.5 MG/2.5 ML AMPUL.NEB IH SCH ×4 (01:12→19:31)
[2019-04-09 04:00] VITALS: BP 146/87
--- NOTE | 2019-04-09 05:30 | NUR ---
RT Pt trach remains on [facility] vent settings t/o the night. Resp status unchanged. Trach is secure and patent. Addendum: 04/09/19 at 0530 by LIEN PIKE RT Amended: Links added.
[2019-04-09] MEDS: PIPERACILLIN /TAZOBACTAM 2.25 G in IV D5W 50 ML IV SCH ×3 (05:39→20:58)
--- NOTE | 2019-04-09 07:05 | NUR ---
MAYONNAISE MIXER OPENING NOTES RECEIVED PT LYING ON BED.ON VENT AND TRACH DEPEND WITH PORTEX -8,AC-10,TV-550 FIO2-30% AND PEEP-5,TOLERATING WELL.NO SOB AND ACUTE DISTRESS NOTED.ON TELE HR IS [address] G TUBE FEEDING WITH JEVITY 1.2@30ML/HR,MINIMAL RESIDUAL NOTED.TOLERATING WELL.RIGHT NEPHROSTOMY PRESENT WITH BLOOD DRAINAGE 220ML.FC IS IN PLACE WITH HEMATURIA.RIGHT UA MIDLINE AND IV LINE IS ON RIGHT HAND G20,SL.SITE IS CLEAN,DRY AND INTACT.NO INFILTRATION NOTED.BED IS IN LOW POSITION AND LOCKED,BED ALARM IS ON.CALL LIGHT IS WITHIN REACH.WILL CONTINUE TO MONITOR THE PT CLOSELY.
[2019-04-09 07:17] LABS: CREATININE 4.2 mg/dL (0.6-1.3); POTASSIUM 4.6 mmol/L (3.5-5.1)
--- NOTE | 2019-04-09 07:40 | NUR ---
CATH LAB TECH CLOSING NOTES NO ACUTE CHANGES THROUGHOUT SHIFT. ALL MD ORDERS ATTENDED. ALL PATIENT NEEDS ANTICIPATED AND MET. ENDORSED TO AM RN FOR LIZETH.
[2019-04-09 08:00] VITALS: BP 129/74
[2019-04-09] MEDS: VALPROIC ACID 250 MG/5 ML UDC GT SCH ×2 (08:13→20:58)
[2019-04-09] MEDS: PANTOPRAZOLE 40 MG/PACK PACK GT SCH ×2 (08:13→16:28)
[2019-04-09] MEDS: LACTOBACILLUS RHAMNOSUS GG 1 EACH CAP.SPRINK GT SCH ×2 (08:13→16:28)
[2019-04-09] MEDS: CALCIUM CARBONATE (1250) 500 MG TABLET GT SCH (08:13)
[2019-04-09] MEDS: MULTIVIT W/MINERALS 1 TAB TABLET GT SCH (08:13)
[2019-04-09] MEDS: DOCUSATE SODIUM LIQ 100 MG/10 ML UDC GT SCH ×2 (08:13→16:28)
[2019-04-09 12:00] VITALS: BP 117/80
[2019-04-09] MEDS: SOD FERRIC GLUC 125 MG in IV NS 0.9% 100 ML IV SCH (13:58)
[2019-04-09 16:00] VITALS: BP 125/86
--- NOTE | 2019-04-09 18:46 | NUR ---
CARE PROFESSIONALS CLOSING NOTES PT IS LYING ON BED WITH TRACH AND VENT DEPEND,TOLERATING WELL.NO SOB AND ACUTE DISTRESS NOTED.ALL THE DUE MEDS ARE GIVEN.PT IS CLEAN AND DRY.RESPIRATION IS EVEN AND NONLABORED.ENDORSED TO INSTRUCTOR NURSE RN FOR LIZETH.
--- NOTE | 2019-04-09 19:07 | NUR ---
GENERAL ACCOUNTING MANAGER NOTES RECEIVED PT ON BED. OBTUNDED. ON [facility] VENT SETTING SATURATING 100% NO RESPIRATORY DISTRESS NOTED. ON TELE MONITOR ST 120. GTUBE FEEDING @ 30CC/HR RECORDER HELPER GRAVITY PROSPECTING RESIDUAL NOTED. IV ACCESS ON BO MIDLINE , TKO PATENT AND INTACT. RIGHT HAND G20 SALINE LOCK PATENT AND INTACT. PARK CATH DRAINING PINKISH URINE. AND NEPHROSTOMY TUBE DRAINING PINKISH COLORED DRAIN. HEAD OF BED ELEVATED. SIDE RAILS UP. CALL LIGHT WITHIN REACH. BED ALARM ON. WILL CONTINUE TO MONITOR PT CLOSELY.
[2019-04-09 20:00] VITALS: BP 147/90
[2019-04-09] MEDS: TAMSULOSIN 0.4 MG CAP.SR.24H GT SCH (21:01)
[2019-04-09] MEDS: INSULIN GLARGINE, 100 UNIT/ML CARTRIDGE SQ SCH (22:00)
[2019-04-09] MEDS: JEVITY 1.2 CAL 1,000 ML BOTTLE GT PRN (22:57)
--- NOTE | 2019-04-09 23:01 | NUR ---
CRIME INVESTIGATOR SPECIAL AGENT NOTES HOLDING LANTUS. PT BLOOD SUGAR LEVEL TRENDING DOWN.
[2019-04-10] VITALS: BP 146/89
[2019-04-10] MEDS: IPRATROPIUM NEB FS 0.5 MG/2.5 ML AMPUL.NEB IH SCH ×4 (01:33→19:45)
[2019-04-10] MEDS: ALBUTEROL FS 2.5 MG/3 ML VIAL.NEB NEB SCH ×4 (01:33→19:45)
[2019-04-10 04:00] VITALS: BP 146/89
[2019-04-10 04:46] LABS: BASOPHILS % (AUTO) 0.1 % (0.0-2.0); EOSINOPHILS % (AUTO) 3.6 % (0.0-6.0); HEMATOCRIT 25 % (39-51); HEMOGLOBIN 7.8 g/dL (13.5-17.5); LYMPHOCYTES # (AUTO) 2.4 /CMM (0.8-4.8); MEAN CORPUSCULAR HGB CONC 32 g/dl (31.0-36.0); MEAN CORPUSCULAR VOLUME 102 fL (80-96); MONOCYTES # (AUTO) 1.6 /CMM (0.1-1.30); MONOCYTES % (AUTO) 11.9 % (2.0-12.0); NEUTROPHILS # (AUTO) 8.8 /CMM (1.8-8.9); NEUTROPHILS % (AUTO) 66.4 % (43.0-81.0); PLATELET COUNT (AUTO) 288 /CMM (150-450); WHITE BLOOD COUNT (AUTO) 13.4 K/uL (4.3-11.0)
[2019-04-10 04:56] LABS: CALCIUM, SERUM 9.1 mg/dL (8.5-10.1); CREATININE 4.2 mg/dL (0.6-1.3); POTASSIUM 4.4 mmol/L (3.5-5.1)
[2019-04-10] MEDS: PIPERACILLIN /TAZOBACTAM 2.25 G in IV D5W 50 ML IV SCH ×3 (05:03→20:29)
[2019-04-10] MEDS: BLOOD SUGAR DIAGNOSTIC 1 EACH STRIP IN SCH ×3 (05:14→17:10)
--- NOTE | 2019-04-10 07:12 | NUR ---
PRICING ACTUARY NOTES NO ACUTE CHANGES NOTED DURING THE SHIFT. PROVIDED COMFORT AND SAFETY. NO RESPIRATORY DISTRESS. NEPHRO TUBE STILL DRAINING PINKISH URINE, ENDORSED TO THE AM NURSE FOR CONTINUITY OF CARE.
[2019-04-10 08:00] VITALS: BP 141/72
--- NOTE | 2019-04-10 08:23 | NUR ---
RN NOTES RECEIVED PATIENT IN BED. NOT ON ANY FORM OF DISTRESS. TRACH AND VENT DEPENDENT. NO SOB NOTED AT THIS TIME. TOLERATING CURRENT VENT SETTING.ON TELEMONITOR,SINUS TACH WITH HR 101 . IV ACCESS ON THE BO MIDLINE AND RIGHT HAND G20, BOTH SL. SITE IN PLACE AND PATENT. DRESSINGS CDI. NO SIGNS GERI INFECTION/INFILTRATION NOTED. ON G TUBE FEEDING WITH JEVITY 1.2@30ML/HR,MINIMAL RESIDUAL NOTED. GT PLACEMENT CONFIRMED THRU ASPIRATING RESIDUAL. RIGHT NEPHROSTOMY WITH BLOODY DRAINAGE. FC DRAINING TO STRAW COLORED URINE. ASPIRATION AND SAFETY MEASURES OBSERVED AND MAINTAINED. BED IN LOW POSITION AND LOCKED,BED ALARM ON.CALL LIGHT WITHIN REACH.WILL CONTINUE TO MONITOR AND ANTICIPATE NEEDS.
[2019-04-10] MEDS: DOCUSATE SODIUM LIQ 100 MG/10 ML UDC GT SCH ×2 (09:39→17:06)
[2019-04-10] MEDS: MULTIVIT W/MINERALS 1 TAB TABLET GT SCH (09:39)
[2019-04-10] MEDS: PANTOPRAZOLE 40 MG/PACK PACK GT SCH ×2 (09:39→17:06)
[2019-04-10] MEDS: VALPROIC ACID 250 MG/5 ML UDC GT SCH ×2 (09:39→20:29)
[2019-04-10] MEDS: LACTOBACILLUS RHAMNOSUS GG 1 EACH CAP.SPRINK GT SCH ×2 (09:39→17:06)
[2019-04-10] MEDS: CALCIUM CARBONATE (1250) 500 MG TABLET GT SCH (09:39)
[2019-04-10 12:00] VITALS: BP 123/76
[2019-04-10] MEDS ORDERED: IV NS 0.9% 500 ML IV ONE (12:00)
[2019-04-10 16:00] VITALS: BP 132/88
--- NOTE | 2019-04-10 18:00 | NUR ---
RN NOTES REPORT GIVEN TO COREY MENDOZA FOR CONTINUITY OF CARE
--- NOTE | 2019-04-10 19:26 | NUR ---
RN NOTES ENDORSED PATIENT FOR CONTINUITY OF CARE. NOT ON ANY FOR OF DISTRESS. ASPIRATION AND SAFETY MEASURES IN PLACE AT ALL TIMES. ALL NURSING NEEDS ATTENDED AND MET. CALL LIGHT PLACED WITHIN REACH
--- NOTE | 2019-04-10 19:56 | NUR ---
POLE FRAMER MACHINE INITIAL NOTE REPORT GIVEN BY ARIS NICOLE TP FOR DC BACK TO SNF, PHOTOS TAKEN, DC SUMMARY COMPLETE, REPORT GIVEN TO FACILITY RN JUHI ADMITTING, OKAY TO LEAVE MIDLINE AND SL TOLD BY ARIS RN, PT VS STABLE, CLEAN AND DRY,ETA 2030, PT CLEAN AND DRY, WILL CONT' TO MONITOR.
[2019-04-10 20:16] VITALS: BP 129/70
--- NOTE | 2019-04-10 22:17 | NUR ---
RN DC NOTE PT DC BACK TO SNF, VS STABLE SR 102 ON MONITOR, VENT SETTINGS PROVIDED, RT WITH TRANSPORT, REPOR GIVEN TO PLASTERER SPRAY GUN REGARDING CONCERNS WITH HR, PAPER WORK PROVIDED WELL REPORT GIVEN TO TRANSPORT.
[2019-04-28] MEDS ORDERED: PANT40SU2 GT (14:37)
== END 2019-04-10 22:15 | DRG 130 ==
LOC: ER 18:05 → ICU 20:48 → TELE1 04-03 17:39
PROVIDERS: ADMIT Nurse Practitioner Acute Care; ATTEND Nurse Practitioner Acute Care
PROC: 30233P1 Transfusion of Nonautologous Frozen Red Cells into Peripheral Vein, Percutaneous Approach (ICD-10-PCS; 2019-04-02)
PROC: 5A1955Z Respiratory Ventilation, Greater than 96 Consecutive Hours (ICD-10-PCS; principal; 2019-04-03)
PROC: 0T9330Z Drainage of Right Kidney Pelvis with Drainage Device, Percutaneous Approach (ICD-10-PCS; 2019-04-08)
DX: J69.0 Pneumonitis due to inhalation of food and vomit (principal); N17.0 Acute kidney failure with tubular necrosis; E43 Unspecified severe protein-calorie malnutrition; G93.41 Metabolic encephalopathy; J90 Pleural effusion, not elsewhere classified; J96.10 Chronic respiratory failure, unspecified whether with hypoxia or hypercapnia; C78.00 Secondary malignant neoplasm of unspecified lung; Z99.11 Dependence on respirator [ventilator] status; Z93.0 Tracheostomy status; C79.82 Secondary malignant neoplasm of genital organs; D68.59 Other primary thrombophilia; E87.1 Hypo-osmolality and hyponatremia; E11.22 Type 2 diabetes mellitus with diabetic chronic kidney disease; K92.2 Gastrointestinal hemorrhage, unspecified; F09 Unspecified mental disorder due to known physiological condition; I95.9 Hypotension, unspecified; R13.10 Dysphagia, unspecified; Z93.1 Gastrostomy status; G40.909 Epilepsy, unspecified, not intractable, without status epilepticus; K21.9 Gastro-esophageal reflux disease without esophagitis; D53.9 Nutritional anemia, unspecified; D72.829 Elevated white blood cell count, unspecified; D47.3 Essential (hemorrhagic) thrombocythemia; J98.11 Atelectasis; E88.09 Other disorders of plasma-protein metabolism, not elsewhere classified; Z68.27 Body mass index [BMI] 27.0-27.9, adult; N18.4 Chronic kidney disease, stage 4 (severe); I12.9 Hypertensive chronic kidney disease with stage 1 through stage 4 chronic kidney disease, or unspecified chronic kidney disease; E86.1 Hypovolemia; N13.30 Unspecified hydronephrosis; C61 Malignant neoplasm of prostate; N32.0 Bladder-neck obstruction
CPT/HCPCS: 31720; 36415; 71045-TC; 75989; 76770-TC; 80048-TC; 80053-TC; 80061-TC; 80076-TC; 81000-TC; 82272-TC; 82728-TC; 82784; 82962-TC; 83540-TC; 83605-TC; 83735-TC; 84100-TC; 84134-TC; 84153-TC; 84154-TC; 84155; 84165; 84403; 84439-TC; 84443-TC; 84481; 85025-TC; 85027-TC; 85045-TC; 85385-TC; 85396; 85610-TC; 85730-TC; 86334; 86850-TC; 86921-TC; 87040-TC; 87070-TC; 87081-TC; 87086-TC; 89051-TC; 94002; 94002-TC; 94003-TC; 94760-TC; 94762-TC; 99082-TC; A4215; A4623; A6253; A6403; A7526; C9113; G0378; J1815; J2250; J2310; J2543; J2916; J3010; J3490; J7030; J7040; J7050; J7060; P9016-BL

== ENCOUNTER 2019-04-13 23:45 | Inpatient (IN) | payer MEDICAID ==
[~2019-04-13] VITALS: Ht 157.5 cm; Wt 75.3 kg
[~2019-04-13 23:45] MED LIST changes: +ACET-2605 GT; +ACET650S26 GT; +BLOO-668 IN; -CALC-261 GT; +CALC500T52 GT; +DOCU50LI GT; +FERR300L GT; +INSU100I26 SQ; +INSU100V3 SQ; -INSU300I SQ; +NUT.237L67 GT; +RANI-655 GT; +SACC250C GT; -ZINC220T GT
--- NOTE | 2019-04-13 23:51 | NUR ---
PT FRED FROM SNF FOR LOW HH; PT AAOX0, VENT AND TRACHE DEPENDENT; OBTUNED, -SOB, VSS, PENDING MD LACARAZ
[2019-04-14] VITALS (12 sets, daily range): BP systolic 104–143; BP diastolic 63–97
--- NOTE | 2019-04-14 00:12 | NUR ---
CALLED JASPER PICCLDAWIT NURSE FOR POSSIBLE MIDLINE/PICC INSERTION FOR PT.
--- NOTE | 2019-04-14 00:18 | NUR ---
PT REC'D TRACHED, PT DELMAR SETTING WELL NO ADVERSE REACTION. NO SOB NOTED Addendum: 04/14/19 at 0018 by LUI MURRAY RT Amended: Links added.
[2019-04-14 01:09] LABS: BASOPHILS % (AUTO) 0.4 % (0.0-2.0); EOSINOPHILS % (AUTO) 3.2 % (0.0-6.0); LYMPHOCYTES # (AUTO) 3.6 /CMM (0.8-4.8); LYMPHOCYTES % (AUTO) 31.9 % (20.0-44.0); MEAN CORPUSCULAR HGB CONC 32 g/dl (31.0-36.0); MEAN CORPUSCULAR VOLUME 102 fL (80-96); MONOCYTES # (AUTO) 1.1 /CMM (0.1-1.30); MONOCYTES % (AUTO) 9.4 % (2.0-12.0); NEUTROPHILS # (AUTO) 6.2 /CMM (1.8-8.9); NEUTROPHILS % (AUTO) 55.1 % (43.0-81.0); PLATELET COUNT (AUTO) 218 /CMM (150-450); RED BLOOD CELL COUNT(AUTO) 1.93 MIL/uL (4.5-6.0); WHITE BLOOD COUNT (AUTO) 11.2 K/uL (4.3-11.0)
[2019-04-14 01:10] LABS: HEMATOCRIT 20 % (39-51); HEMOGLOBIN 6.4 g/dL (13.5-17.5)
[2019-04-14 01:20] LABS: CALCIUM, SERUM 8.6 mg/dL (8.5-10.1); POTASSIUM 3.3 mmol/L (3.5-5.1)
[2019-04-14 01:26] LABS: BILIRUBIN,TOTAL 0.2 mg/dL (0.2-1.0); TOTAL PROTEIN, SERUM 8.8 g/dL (6.4-8.2)
[2019-04-14 01:27] LABS: ALBUMIN 1.3 g/dL (3.4-5.0)
--- NOTE | 2019-04-14 01:30 | NUR ---
ROOM ASSIGNMENT [phone]
--- NOTE | 2019-04-14 01:54 | NUR ---
REPORT GIVEN EDWARD NICOLE FOR LIZETH; PT WILL BE TRANSPORTED TO 3RD FLOOR VIA [facility] PROTOCOL
[2019-04-14] MEDS ORDERED: ACETAMINOPHEN 650 MG/20.3 ML UDC GT PRN (02:00)
[2019-04-14] MEDS ORDERED: IPRATROPIUM NEB FS 0.5 MG/2.5 ML AMPUL.NEB IH PRN (02:00)
[2019-04-14] MEDS ORDERED: BISACODYL SUPP (10 MG) 10 MG/SUPP.RECT SUPP.RECT RC PRN (02:00)
[2019-04-14] MEDS ORDERED: ONDANSETRON HCL/PF 4 MG/2 ML VIAL IVP PRN (02:00)
[2019-04-14] MEDS ORDERED: CLONIDINE HCL 0.1 MG TABLET GT PRN (02:00)
--- NOTE | 2019-04-14 02:12 | NUR ---
BED ASSIGNMENT CHANGED TO 107. GAVE REPORT TO JOSE NICOLE FOR LIZETH
[2019-04-14 02:14] LABS: EOSINOPHILS % (MANUAL) 2 % (0-4); LYMPHOCYTES % (MANUAL) 31 % (16-48); MONOCYTES % (MANUAL) 5 % (0-11.0); NEUTROPHILS % (MANUAL) 62 (42-76)
--- NOTE | 2019-04-14 02:54 | NUR ---
PT TRANSPORTED TO 1ST FLOOR VIA ACLS PROTOCOL
--- NOTE | 2019-04-14 03:00 | NUR ---
RN NOTES RECEIVED PATIENT FROM ER ON [facility]. PATIENT IS OBTUNDED, VENT TRACH DEPENDENT WITH SETTINGS OF AC10 TV 550 FIO2 35 PEEP 5.RT AT THE BEDSIDE. PATIENT IS PLACED ON PROGRAM DIRECTOR/AIR PERSONALITY SR WITH HR OF 79. PATIENT HAS PARK CATHETER IN PLACE DRAINING BLOODY URINE ON GRAVITY.PATIENT HAS RIGHT NEPHROSTOMY TUBE IN PLACE WITH BLOODY DRAINAGE. SKIN ASSESSMENT HAS BEEN DONE AND PICTURES PLACED IN THE CHART. PATIENT HAS G TUBE IN PLACE. RIGHT UPPER ARM MIDLINE IS IN PLACE WITH 1 UNIT OF PACKED RBC TRANSFUSING WELL WITHOUT ANY REACTIONS. ALSO RIGHT WRIST G20 IV LINE IS IN PLACE. ALL SAFETY MEASURES ARE IN PLACE, BED IN LOW, LOCKED POSITION, CALL LIGHT IN PLACE. WILL CONTINUE TO MONITOR PATIENT CLOSELY.
--- NOTE | 2019-04-14 04:45 | NUR ---
rn notes patient is getting unverified blood transfusion started at 0200 and it ended at 0445. called ER and I have been told they are doing on the paper and I should finish my documentation and blood transfusion on the same paper.
--- NOTE | 2019-04-14 04:45 | NUR ---
rn notes Blood transfusion has been completed without any allergic or adverse reactions. v/s are wnl, no s/s of pain and discomfort. will conttinue to monitor patient closely.
[2019-04-14] MEDS: PROSOURCE / PROSTAT (PYXIS) 30 ML UDC GT SCH ×3 (05:14→20:43)
[2019-04-14] MEDS: NEPRO 1,000 ML BOTTLE GT PRN (05:14)
[2019-04-14] MEDS ORDERED: DEXTROSE 50%-WATER 50 ML DISP.SYRIN IV PRN (05:30)
[2019-04-14] MEDS: BLOOD SUGAR DIAGNOSTIC 1 EACH STRIP IN SCH ×3 (06:03→17:27)
--- NOTE | 2019-04-14 06:45 | NUR ---
RN NOTES PATIENT IS IN BED OBTUNDED, IN STABLE CONDITION. NO CHANGES DURING MY SHIFT. REPORT IS GIVEN TO AM RN FOR POLICY AND PLANNING MANAGER.
--- NOTE | 2019-04-14 07:00 | NUR ---
RN NOTES RECEIVED PATIENT ON BED , OBTUNDED, VENT TRACH DEPENDENT WITH SETTINGS OF AC10 TV 550 FIO2 35 PEEP 5. TOLERATING THE VENT SETTING WELL, ON TELE SR HR IN 80'S , PARK AND R NEPHROSTOMY TUBE DRINING WITH BLOODY URINE, RT AT THE BEDSIDE. NEPRO AT 30CC/HR RUNNING VIA G TUBE, NO RESIDUAL NOTED, R UPPER ARM MIDLINE SITE CLEAN, DRY AND INTACT , SR UP x3, CALL LIGHT WITHIN EASY REACH, BED LOCKED AND IN LOWEST POSITION, CONTINUE TO MONITOR.
[2019-04-14] MEDS ORDERED: ALBUTEROL FS 2.5 MG/3 ML VIAL.NEB NEB PRN (07:35)
[2019-04-14] MEDS: ALBUTEROL FS 2.5 MG/3 ML VIAL.NEB NEB SCH ×3 (07:54→19:47)
[2019-04-14] MEDS: IPRATROPIUM NEB FS 0.5 MG/2.5 ML AMPUL.NEB IH SCH ×3 (07:54→19:47)
[2019-04-14] MEDS: FAMOTIDINE (20 MG) 20 MG TABLET GT SCH (08:43)
[2019-04-14] MEDS: FERROUS SULFATE UDC 300 MG/5 ML UDC GT SCH ×3 (08:43→16:12)
[2019-04-14] MEDS: CALCIUM CARBONATE (1250) 500 MG TABLET GT SCH (08:43)
[2019-04-14] MEDS: VALPROIC ACID 250 MG/5 ML UDC GT SCH ×2 (08:43→20:34)
[2019-04-14] MEDS: DOCUSATE SODIUM LIQ 100 MG/10 ML UDC GT SCH ×2 (08:43→16:13)
[2019-04-14] MEDS: ACIDOPHILUS/BULGARICUS 1 EACH TAB.CHEW GT SCH ×3 (08:44→16:12)
[2019-04-14] MEDS: MULTIVITAMINS,THERAGRAN 1 UDTAB TABLET GT SCH (08:44)
[2019-04-14] MEDS: METOPROLOL TARTRATE 50 MG TABLET GT SCH ×2 (08:44→20:34)
[2019-04-14] MEDS: ACETAMINOPHEN 650 MG/20.3 ML UDC GT SCH (08:45)
--- NOTE | 2019-04-14 09:45 | NUR ---
RN NOTES DR AGEE NOTIFED REGARDING HEMATURIA , ORDER RECEIVED FOR UROLOGY CONSULT , DR SERRANO NOTIFED .
--- NOTE | 2019-04-14 10:15 | NUR ---
RN NOTES REPORT GIVEN TO BONIFACIO NICOLE FOR CONTINUITY OF CARE .
--- NOTE | 2019-04-14 10:30 | NUR ---
cable television line technician note received patient with trach to vent setting as ordered ,still with hematuria with rt nephrectomy and with holm cath with hematuria, on g rube feeding as ordered keep hob elevated at all time , will cont to monitor closely
[2019-04-14] MEDS: FAMOTIDINE/PF INJ 20 MG/2 ML VIAL IV SCH ×2 (11:28→20:34)
[2019-04-14 11:46] LABS: CALCIUM, SERUM 8.5 mg/dL (8.5-10.1); CREATININE 3.1 mg/dL (0.6-1.3); POTASSIUM 3.3 mmol/L (3.5-5.1)
[2019-04-14 11:50] LABS: BASOPHILS % (AUTO) 0.2 % (0.0-2.0); EOSINOPHILS % (AUTO) 3.1 % (0.0-6.0); HEMATOCRIT 22 % (39-51); HEMOGLOBIN 7.5 g/dL (13.5-17.5); LYMPHOCYTES # (AUTO) 3.2 /CMM (0.8-4.8); LYMPHOCYTES % (AUTO) 31.3 % (20.0-44.0); MEAN CORPUSCULAR HGB CONC 34 g/dl (31.0-36.0); MEAN CORPUSCULAR VOLUME 99 fL (80-96); MONOCYTES % (AUTO) 10.3 % (2.0-12.0); NEUTROPHILS # (AUTO) 5.6 /CMM (1.8-8.9); NEUTROPHILS % (AUTO) 55.1 % (43.0-81.0); PLATELET COUNT (AUTO) 199 /CMM (150-450); RED BLOOD CELL COUNT(AUTO) 2.25 MIL/uL (4.5-6.0); WHITE BLOOD COUNT (AUTO) 10.1 K/uL (4.3-11.0)
--- NOTE | 2019-04-14 12:40 | NUR ---
RACQUET MAKER NOTE STOOL FOR CDIFF ORDERED AND COLLECTED FOR HOSPITAL PROTOCOL.
--- NOTE | 2019-04-14 12:40 | NUR ---
WOUND CARE CONSULT: PT PRESENTS WITH SACRAL SCARRING, BILATERAL LOWER LEG SKIN TEARS, VERY FRAGILE SKIN, SCROTAL EDEMA AND RT NEPHROSTOMY TUBE WITH RED DRAINAGE IN BAG, ALL PRESENT ON ADMISSION. DR BERNARD NOTIFIED OF DPM CONSULT REQUEST. ALL SKIN PROTECTION RECOMMENDATIONS DISCUSSED WITH NURSING STAFF. PT NOTED TO BE INCONTINENT OF LARGE AMOUNT OF SEMI LIQUID STOOL. FIRST STEP LOW AIRLOSS MATTRESS ORDERED. WILL SEE PRN. DEFER TO DPM FOR LOWER EXTREMITIES. MD IN AGREEMENT WITH PLAN OF CARE. Addendum: 04/14/19 at 1242 by VANESSA CONTRERAS WNDNU Amended: Links added.
[2019-04-14] MEDS ORDERED: Z GUARD REMEDY 2 OZ OINT TP PRN (13:00)
[2019-04-14] MEDS: Z GUARD REMEDY 2 OZ OINT TP SCH (13:57)
--- NOTE | 2019-04-14 14:22 | NUR ---
DIGITAL PROJECT COORDINATOR NOTES DR WEST WAS NOTIFIED BUN 51, k 3.3, CREATININE 3.1. NO NEW ORDER AT THIS TIME. WILL CALL POOL HALL INSPECTOR
[2019-04-14 14:28] LABS: OCCULT BLOOD STOOL NEGATIVE (NEGATIVE)
--- NOTE | 2019-04-14 14:39 | NUR ---
BOILER WASHER NOTES DR. WEST WAS NOTIFIED THAT PT STILL HAS HEMATURIA FROM PARK CATHETER AND RIGHT NEPHRECTOMY. RIGHT NEPHROSTOMY TUBE STILL DRAINING WITH BLOODY URINE. HEMIGLOBIN 7.5 TODAY. CBC FOR 18:00 WAS ORDERED.
[2019-04-14 15:34] LABS: IRON, SERUM 138 ug/dl (50-175); TOTAL IRON BINDING CAPACITY 113 ug/dl (250-450)
[2019-04-14 15:48] LABS: FERRITIN 893 ng/mL (8-388)
--- NOTE | 2019-04-14 17:06 | NUR ---
senior telecommunications engineer note kci matrass applied as ordered
[2019-04-14] MEDS: IV NS 0.9% 1,000 ML IV PRN (17:30)
--- NOTE | 2019-04-14 17:39 | NUR ---
teletypesetter note tryed to called to dr costa urologist , unable to contact with him ,phone is disconnected
--- NOTE | 2019-04-14 18:06 | NUR ---
WATER AND SEWER SYSTEMS SUPERINTENDENT NOTES TRIED THREE DIFFERENT PHONE NUMBERS TO CONTACT THE FAMILY MEMBER FOR EGD CONSENT FORM BUT WAS NOT ABLE TO TALK TO THEM. PHONES WERE DISCONNECTED
[2019-04-14 18:10] LABS: BASOPHILS % (AUTO) 0.3 % (0.0-2.0); HEMATOCRIT 22 % (39-51); HEMOGLOBIN 7.6 g/dL (13.5-17.5); LYMPHOCYTES # (AUTO) 3.2 /CMM (0.8-4.8); LYMPHOCYTES % (AUTO) 30.1 % (20.0-44.0); MEAN CORPUSCULAR HGB CONC 34 g/dl (31.0-36.0); MEAN CORPUSCULAR VOLUME 99 fL (80-96); MONOCYTES # (AUTO) 1.1 /CMM (0.1-1.30); MONOCYTES % (AUTO) 10.2 % (2.0-12.0); NEUTROPHILS # (AUTO) 5.9 /CMM (1.8-8.9); NEUTROPHILS % (AUTO) 56.4 % (43.0-81.0); PLATELET COUNT (AUTO) 207 /CMM (150-450); RED BLOOD CELL COUNT(AUTO) 2.28 MIL/uL (4.5-6.0); WHITE BLOOD COUNT (AUTO) 10.5 K/uL (4.3-11.0)
--- NOTE | 2019-04-14 18:16 | NUR ---
COSTUME CUTTER NOTE SPOKE WITH DR WEST NOTIFIED THAT RT NEPHROSTOMY AND FROM PARK CATH STILL BLEEDING STATED THAT CALLED ALREADY TO DR FRASER UROLOGIST
--- NOTE | 2019-04-14 18:47 | NUR ---
QUENCHING MACHINE OPERATOR NOTES SPOKE WITH ADALBERTO JANELL AND TELEPHONE CONSENT WAS OBTAINED FOR EGD. NPO AFTER MIDNIGHT. WILL ENDORSE CARE TO THE NEXT SHIFT.
--- NOTE | 2019-04-14 19:30 | NUR ---
TELE/RN NOTES PATIENT IN BED, RESTING COMFORTABLY AT THIS TIME, NO S/S OF ACUTE DISTRESS NOTED. RESPIRATION EVEN AND UNLABORED. NO SOB NOTED. TRACH INTACT, PATENT , CONNECTED TO VENT WITH PRESCRIBED SETTINGS. F/C IN PLACE, PATENT, DRAINING WELL WITH CLOUDY YELLOW URINE WITH SEDIMENTS. R NEPHROSTOMY TUBE DRAINING WELL WITH BLOODY URINE, MD AWARE. G TUBE IN PLACE , PATENT CONNECTED TO FEEDING ORDERED. NO RESIDUAL NOTED AT THIS TIME. PATIENT ON TELE MONITORING WITH SR 78. HOB KEPT ELEVATED AT ALL THE TIME. R UPPER ARM MIDLINE SITE CLEAN, DRY AND INTACT. SAFETY MAINTAINED, BED AT THE LOWEST POSITION, LOCKED SR UP x3, CALL LIGHT WITHIN EASY REACH. EGD IN THE MORNING, WILL KEEP PATIENT NPO ORDERED AFTER MIDNIGHT. WILL CONTINUE TO MONITOR PATIENT PER PLAN OF CARE
[2019-04-14] MEDS: TAMSULOSIN 0.4 MG CAP.SR.24H GT SCH (22:19)
[2019-04-14] MEDS: AMLODIPINE BESYLATE 5 MG TABLET GT SCH (22:19)
[2019-04-15] VITALS (10 sets, daily range): BP systolic 107–153; BP diastolic 69–99
[2019-04-15] MEDS: BLOOD SUGAR DIAGNOSTIC 1 EACH STRIP IN SCH ×5 (00:34→23:15)
[2019-04-15] MEDS: ALBUTEROL FS 2.5 MG/3 ML VIAL.NEB NEB SCH ×4 (01:54→19:44)
[2019-04-15] MEDS: IPRATROPIUM NEB FS 0.5 MG/2.5 ML AMPUL.NEB IH SCH ×4 (01:54→19:44)
[2019-04-15] MEDS: PROSOURCE / PROSTAT (PYXIS) 30 ML UDC GT SCH ×3 (05:00→20:46)
--- NOTE | 2019-04-15 06:07 | NUR ---
PATIENT BLOOD SUGAR NOTED 59 AT THIS TIME, CHECKED 2 TIMES. PRN DEXTROSE GIVEN ORDERED. WILL MONITOR PATIENT CLOSELY
[2019-04-15 06:55] LABS: BILIRUBIN,TOTAL 0.2 mg/dL (0.2-1.0); CALCIUM, SERUM 8.6 mg/dL (8.5-10.1); CREATININE 2.7 mg/dL (0.6-1.3); MAGNESIUM 1.6 mg/dL (1.8-2.4); PHOSPHORUS 3.1 mg/dL (2.5-4.9); POTASSIUM 3.4 mmol/L (3.5-5.1); TOTAL PROTEIN, SERUM 8.8 g/dL (6.4-8.2)
[2019-04-15 07:12] LABS: ALBUMIN 1.4 g/dL (3.4-5.0)
--- NOTE | 2019-04-15 07:23 | NUR ---
TELE/RN NOTES PATIENT IN BED, RESTING COMFORTABLY AT THIS TIME, NO S/S OF ACUTE DISTRESS NOTED. RESPIRATION EVEN AND UNLABORED. NO SOB NOTED. TRACH INTACT, PATENT , CONNECTED TO VENT WITH PRESCRIBED SETTINGS. F/C IN PLACE, PATENT, DRAINING WELL WITH CLOUDY YELLOW URINE WITH SEDIMENTS OUTPUT NOTED 300. R NEPHROSTOMY TUBE DRAINING WELL WITH BLOODY URINE, OUTPUT NOTED 1100, MD AWARE. G TUBE IN PLACE, PATENT. KEPT PATIENT NPO SINCE MID NIGHT FOR THE EGD TODAY. CONCENTS OBTAINED FROM DAUGHTER. ON TELE MONITORING WITH SR 67. HOB KEPT ELEVATED AT ALL THE TIME. R UPPER ARM MIDLINE SITE CLEAN, DRY AND INTACT. SAFETY MAINTAINED, BED AT THE LOWEST POSITION, LOCKED SR UP x3, CALL LIGHT WITHIN EASY REACH. LABS CALLED TO REPORT CRITICAL LAB VALUE FOR LOW ALBUMIN, ENDORSE TO DORIS HURST SHIFT RN FOR LIZETH.
--- NOTE | 2019-04-15 07:30 | NUR ---
TELE/RN OPENING NOTES RECEIVED REPORT FROM PM NURSE.PATIENT IN BED, RESTING COMFORTABLY AT THIS TIME, NO S/S OF ACUTE DISTRESS NOTED. RESPIRATION EVEN AND UNLABORED. NO SOB NOTED. TRACH INTACT, PATENT , WITH VENT TOLERATING SETTINGS ORDERED. F/C IN PLACE, PATENT, DRAINING WELL WITH CLOUDY YELLOW URINE WITH SEDIMENTS. R NEPHROSTOMY TUBE DRAINING WELL WITH HEMATURIA.G TUBE IN PLACE. NPO FOR EGD.PATIENT ON TELE MONITORING WITH SR 76. HOB KEPT ELEVATED . R UPPER ARM MIDLINE SITE CLEAN, DRY AND INTACT. SAFETY MAINTAINED, BED AT THE LOWEST POSITION, LOCKED SR UP x3, CALL LIGHT WITHIN EASY REACH. RUSLAN CONTINUE TO MONITOR.
[2019-04-15] MEDS: FERROUS SULFATE UDC 300 MG/5 ML UDC GT SCH ×3 (08:00→17:22)
[2019-04-15] MEDS: FAMOTIDINE/PF INJ 20 MG/2 ML VIAL IV SCH ×2 (08:42→20:46)
[2019-04-15] MEDS: DOCUSATE SODIUM LIQ 100 MG/10 ML UDC GT SCH ×2 (08:42→17:22)
[2019-04-15] MEDS: VALPROIC ACID 250 MG/5 ML UDC GT SCH ×2 (08:42→20:45)
[2019-04-15] MEDS: Z GUARD REMEDY 2 OZ OINT TP SCH (08:42)
[2019-04-15] MEDS: METOPROLOL TARTRATE 50 MG TABLET GT SCH ×2 (08:43→20:46)
[2019-04-15] MEDS: ACIDOPHILUS/BULGARICUS 1 EACH TAB.CHEW GT SCH ×3 (08:43→17:22)
[2019-04-15] MEDS: ACETAMINOPHEN 650 MG/20.3 ML UDC GT SCH (08:44)
[2019-04-15] MEDS: MULTIVITAMINS,THERAGRAN 1 UDTAB TABLET GT SCH (08:44)
[2019-04-15] MEDS: FAMOTIDINE (20 MG) 20 MG TABLET GT SCH (08:44)
[2019-04-15] MEDS: CALCIUM CARBONATE (1250) 500 MG TABLET GT SCH (08:44)
[2019-04-15 09:40] LABS: BASOPHILS % (AUTO) 0.3 % (0.0-2.0); EOSINOPHILS % (AUTO) 3.2 % (0.0-6.0); HEMATOCRIT 21 % (39-51); HEMOGLOBIN 7.2 g/dL (13.5-17.5); LYMPHOCYTES # (AUTO) 3.4 /CMM (0.8-4.8); LYMPHOCYTES % (AUTO) 30.2 % (20.0-44.0); MEAN CORPUSCULAR HGB CONC 34 g/dl (31.0-36.0); MEAN CORPUSCULAR VOLUME 100 fL (80-96); MONOCYTES # (AUTO) 1.2 /CMM (0.1-1.30); MONOCYTES % (AUTO) 10.6 % (2.0-12.0); NEUTROPHILS # (AUTO) 6.2 /CMM (1.8-8.9); NEUTROPHILS % (AUTO) 55.7 % (43.0-81.0); PLATELET COUNT (AUTO) 246 /CMM (150-450); RED BLOOD CELL COUNT(AUTO) 2.13 MIL/uL (4.5-6.0); WHITE BLOOD COUNT (AUTO) 11.2 K/uL (4.3-11.0)
--- NOTE | 2019-04-15 10:30 | NUR ---
MASS SPECTROSCOPIST NOTE SEEN BY ,UPDATED PATIENT CONDITION AND MADE AWARE ABOUT UROSTOMY BLEEDING .GOT STAT ORDER FOR CBC.WILL CONTINUE TO MONITOR.
--- NOTE | 2019-04-15 10:54 | NUR ---
MOTEL FOOD SERVICE SUPERVISOR NOTE SEEN BY ,UPDATED ABOUT PATIENT CONDITION WITH LABS.MADE AWARE ABOUT H/H TRENDING DOWN.EGD DONE.RELAYED FINDING TO .OK TO RESUME ALL ORDERS AFTER RECOVERY PERIOD PER DR.TATOYAN DARBY.REPORT RECEIVED FROM RECOVERY NURSE.PATIENT IS STABLE.DIONICIO GILLESPIE AT BEDSIDE.WILL CONTINUE TO MONITOR.
[2019-04-15] MEDS: IV NS 0.9% 1,000 ML IV PRN (13:52)
--- NOTE | 2019-04-15 17:48 | NUR ---
ELECTRICAL AND INSTRUMENT ENGINEER NOTE MADE AWARE THAT PATIENT PHARMACY NOT REPLACED K AND MG.BECAUSE OF CREATININE ELEVATED.NO NEED TO REPLACE PER .WILL F/U WITH LABS IN AM.
--- NOTE | 2019-04-15 18:46 | NUR ---
TELE/RN CLOSING NOTES PATIENT IN BED, RESTING COMFORTABLY AT THIS TIME, NO S/S OF ACUTE DISTRESS NOTED. RESPIRATION EVEN AND UNLABORED. NO SOB NOTED. TRACH INTACT, PATENT , WITH VENT TOLERATING SETTINGS ORDERED. F/C IN PLACE, PATENT, DRAINING WELL WITH CLOUDY YELLOW URINE WITH SEDIMENTS. R NEPHROSTOMY TUBE DRAINING WELL WITH HEMATURIA.G TUBE IN PLACE. NPO FOR EGD.PATIENT ON TELE MONITORING WITH SR 74. HOB KEPT ELEVATED . R UPPER ARM MIDLINE SITE CLEAN, DRY AND INTACT. SAFETY MAINTAINED, BED AT THE LOWEST POSITION, LOCKED SR UP x3, CALL LIGHT WITHIN EASY REACH.PATIENT STABLE S/P EGD.UROSTOMY DRESSING CHANGED.WILL ENDORSE TO PM NURSE FOR LIZETH.
--- NOTE | 2019-04-15 19:35 | NUR ---
TELE/RN NOTES PATIENT IN BED, RESTING COMFORTABLY AT THIS TIME, NO S/S OF ACUTE DISTRESS NOTED. RESPIRATION EVEN AND UNLABORED. NO SOB NOTED. TRACH INTACT, PATENT , CONNECTED TO VENT WITH PRESCRIBED SETTINGS. F/C IN PLACE, PATENT, DRAINING WELL WITH CLOUDY YELLOW URINE WITH SEDIMENTS. R NEPHROSTOMY TUBE DRAINING WELL WITH BLOODY URINE, MD AWARE. G TUBE IN PLACE , PATENT CONNECTED TO FEEDING ORDERED. NO RESIDUAL NOTED AT THIS TIME. PATIENT ON TELE MONITORING WITH SR 74. HOB KEPT ELEVATED AT ALL THE TIME. R UPPER ARM MIDLINE SITE CLEAN, DRY AND INTACT. SAFETY MAINTAINED, BED AT THE LOWEST POSITION, LOCKED SR UP x3, CALL LIGHT WITHIN REACH. PATIENT S/P EGD. WILL CONTINUE TO MONITOR PATIENT PER PLAN OF CARE.
[2019-04-15] MEDS: SUCRALFATE 1 G/10 ML UDC GT SCH (21:34)
[2019-04-15] MEDS: TAMSULOSIN 0.4 MG CAP.SR.24H GT SCH (21:34)
[2019-04-15] MEDS: AMLODIPINE BESYLATE 5 MG TABLET GT SCH (21:34)
[2019-04-16] VITALS (12 sets, daily range): BP systolic 102–161; BP diastolic 65–94
--- NOTE | 2019-04-16 00:25 | NUR ---
PATIENT BLOOD PRESSURE NOTES 161/89 AT THIS TIME, CHECKED 2 TIMES. PRN CLONIDINE GIVEN ORDERED. WILL CONTINUE TO MONITOR BLOOD PRESSURE. PATIENT IN NO ACUTE DISTRESS
[2019-04-16] MEDS: IPRATROPIUM NEB FS 0.5 MG/2.5 ML AMPUL.NEB IH SCH ×4 (02:10→19:54)
[2019-04-16] MEDS: ALBUTEROL FS 2.5 MG/3 ML VIAL.NEB NEB SCH ×4 (02:10→19:54)
[2019-04-16] MEDS: PROSOURCE / PROSTAT (PYXIS) 30 ML UDC GT SCH ×3 (05:30→21:52)
[2019-04-16] MEDS: BLOOD SUGAR DIAGNOSTIC 1 EACH STRIP IN SCH ×4 (05:41→23:53)
[2019-04-16 06:28] LABS: BASOPHILS % (AUTO) 0.3 % (0.0-2.0); EOSINOPHILS % (AUTO) 2.4 % (0.0-6.0); HEMATOCRIT 21 % (39-51); HEMOGLOBIN 7.1 g/dL (13.5-17.5); LYMPHOCYTES # (AUTO) 2.8 /CMM (0.8-4.8); LYMPHOCYTES % (AUTO) 25.2 % (20.0-44.0); MEAN CORPUSCULAR HGB CONC 33 g/dl (31.0-36.0); MEAN CORPUSCULAR VOLUME 100 fL (80-96); MONOCYTES # (AUTO) 1.1 /CMM (0.1-1.30); MONOCYTES % (AUTO) 9.7 % (2.0-12.0); NEUTROPHILS % (AUTO) 62.4 % (43.0-81.0); PLATELET COUNT (AUTO) 267 /CMM (150-450); RED BLOOD CELL COUNT(AUTO) 2.12 MIL/uL (4.5-6.0); WHITE BLOOD COUNT (AUTO) 11.2 K/uL (4.3-11.0)
--- NOTE | 2019-04-16 06:39 | NUR ---
TELE/RN NOTES PATIENT IN NO ACUTE DISTRESS. RESPIRATION EVEN AND UNLABORED. NO SOB NOTED. TRACH INTACT, PATENT , CONNECTED TO VENT WITH PRESCRIBED SETTINGS. F/C IN PLACE, PATENT, DRAINING WELL WITH CLOUDY YELLOW URINE WITH OUTPUT OF 550. R NEPHROSTOMY TUBE DRAINING WELL WITH BLOODY URINE WITH OUTPUT OF 950, MD AWARE. G TUBE IN PLACE , PATENT CONNECTED TO FEEDING ORDERED. PATIENT NOTED WITH RESIDUAL 80CC, HELD TUBE FEEDING AT THIS TIME. PATIENT ON TELE MONITORING WITH SR 87. HOB KEPT ELEVATED AT ALL THE TIME. R UPPER ARM MIDLINE SITE CLEAN, DRY AND INTACT, RUNNING WITH NS @50CC/HR. SAFETY MAINTAINED, BED AT THE LOWEST POSITION, LOCKED SR UP x3, CALL LIGHT WITHIN REACH. WILL ENDORSE TO AM SHIFT NURSE FOR LIZETH
[2019-04-16 07:02] LABS: CALCIUM, SERUM 8.6 mg/dL (8.5-10.1); CREATININE 2.2 mg/dL (0.6-1.3); MAGNESIUM 1.6 mg/dL (1.8-2.4); PHOSPHORUS 2.8 mg/dL (2.5-4.9); POTASSIUM 3.4 mmol/L (3.5-5.1)
[2019-04-16] MEDS: NEPRO 1,000 ML BOTTLE GT PRN (07:03)
--- NOTE | 2019-04-16 07:46 | NUR ---
BAKERY DELIVERER OPENING NOTES PATIENT RECEIVED LYING IN BED. NO SOB OR ACUTE DISTRESS NOTED. RESPIRATION EVEN AND UNLABORED. TRACH INTACT, PATENT , CONNECTED TO VENT WITH PRESCRIBED SETTINGS. F/C IN PLACE, PATENT, DRAINING WELL WITH CLOUDY YELLOW URINE WITH OUTPUT OF 550. R NEPHROSTOMY TUBE DRAINING WELL WITH BLOODY URINE WITH OUTPUT OF 950, MD AWARE. G TUBE IN PLACE , PATENT CONNECTED TO FEEDING ORDERED. PATIENT ON TELE MONITORING WITH SR 8O.'S. HOB KEPT ELEVATED AT ALL THE TIME. R UPPER ARM MIDLINE SITE CLEAN, DRY AND INTACT, RUNNING WITH NS @50CC/HR. SAFETY MAINTAINED, BED AT THE LOWEST POSITION, LOCKED SR UP x3, CALL LIGHT WITHIN REACH. WILL CONTINUE TO MONITOR.
[2019-04-16] MEDS: FERROUS SULFATE UDC 300 MG/5 ML UDC GT SCH ×3 (08:09→16:58)
[2019-04-16] MEDS: SUCRALFATE 1 G/10 ML UDC GT SCH ×4 (08:09→21:47)
[2019-04-16] MEDS: VALPROIC ACID 250 MG/5 ML UDC GT SCH ×2 (09:33→21:47)
[2019-04-16] MEDS: ACETAMINOPHEN 650 MG/20.3 ML UDC GT SCH (09:33)
[2019-04-16] MEDS: ACIDOPHILUS/BULGARICUS 1 EACH TAB.CHEW GT SCH ×3 (09:33→16:58)
[2019-04-16] MEDS: CALCIUM CARBONATE (1250) 500 MG TABLET GT SCH (09:33)
[2019-04-16] MEDS: Z GUARD REMEDY 2 OZ OINT TP SCH (09:34)
[2019-04-16] MEDS: MULTIVITAMINS,THERAGRAN 1 UDTAB TABLET GT SCH (09:34)
[2019-04-16] MEDS: DOCUSATE SODIUM LIQ 100 MG/10 ML UDC GT SCH ×2 (09:34→16:58)
[2019-04-16] MEDS: FAMOTIDINE (20 MG) 20 MG TABLET GT SCH (09:34)
[2019-04-16] MEDS: METOPROLOL TARTRATE 50 MG TABLET GT SCH ×2 (09:34→21:48)
[2019-04-16] MEDS: FAMOTIDINE/PF INJ 20 MG/2 ML VIAL IV SCH ×2 (09:34→21:49)
[2019-04-16] MEDS ORDERED: POTASSIUM CHLORIDE 20 MEQ POWDER PACKET GT ONE (10:00)
[2019-04-16] MEDS: IV D5W 1,000 ML IV PRN (10:39)
[2019-04-16] MEDS ORDERED: Magnesium 1GM/D5W 100ML PREMIX 100 ML IV SCH (11:30)
--- NOTE | 2019-04-16 12:13 | NUR ---
COUNTER TOP MAKER NOTE GTUBE RESIDUAL 700 @ 1130 HRS. TUBE FEEDING HELD. WILL RECHECK RESIDUAL @ 1400.
--- NOTE | 2019-04-16 14:01 | NUR ---
BLOOD TRANSFUSION STARTED PER MD, AT 1340. VITALS SIGNS CHECKED BEFORE, AT START AND 15 MINUTES AFTER BEGINNING TRANSFUSION. V/S WNL, NO ADVERSE REACTIONS NOTED.
--- NOTE | 2019-04-16 14:02 | NUR ---
MS RN NOTE WOUND CARE MD BEDSIDE. MD REPORTED WOUNDS ARE EXPECTED.
--- NOTE | 2019-04-16 15:03 | NUR ---
MS RN NOTE RESIDUAL DECREASED TO 30ML. TUBE FEEDING RESUMED AT 30ML PER/HR.
--- NOTE | 2019-04-16 16:11 | NUR ---
RN FIRST ASSIST NOTE BLOOD TRANSFUSION COMPLETED W/O INCIDENT. V/S AT 1605 WNL, PATIENT STABLE, NO S/S OF SOB OR DISTRESS.
--- NOTE | 2019-04-16 17:30 | NUR ---
MARINE SERVICE MANAGER NOTE WOUND CARE COMPLETED ORDERED. BED BATH AND LINEN CHANGE COMPLETED.
--- NOTE | 2019-04-16 19:11 | NUR ---
LAND LEASE INFORMATION CLERK CLOSING NOTES PATIENT LYING IN BED. NO SOB OR ACUTE DISTRESS NOTED. RESPIRATION EVEN AND UNLABORED. TRACH INTACT, PATENT , CONNECTED TO VENT WITH PRESCRIBED SETTINGS. F/C IN PLACE, PATENT, DRAINING WELL WITH CLOUDY YELLOW URINE WITH OUTPUT OF 550. R NEPHROSTOMY TUBE DRAINING WELL WITH BLOODY URINE WITH OUTPUT OF 750, MD AWARE. G TUBE IN PLACE , PATENT CONNECTED TO FEEDING ORDERED. PATIENT ON TELE MONITORING WITH SR 8O.'S. MD BEDSIDE TODAY. ALL WOUND CARE COMPLETED ORDERED. HOB KEPT ELEVATED AT ALL THE TIME. R UPPER ARM MIDLINE SITE CLEAN, DRY AND INTACT, RUNNING WITH D5 @100CC/HR. SAFETY MEASURES IN PLACE, BED AT THE LOWEST POSITION, LOCKED SR UP x3, CALL LIGHT WITHIN REACH. CARE ENDORSED TO GRAIN BLENDER RN.
--- NOTE | 2019-04-16 19:28 | NUR ---
WEB CONTENT DEVELOPER INITIAL NOTES PATIENT RECEIVED LYING IN BED. NO SOB OR ACUTE DISTRESS NOTED. RESPIRATION EVEN AND UNLABORED. TRACH INTACT, PATENT , CONNECTED TO VENT WITH PRESCRIBED SETTINGS. F/C IN PLACE, PATENT, DRAINING WELL WITH CLOUDY YELLOW URINE WITH OUTPUT . R NEPHROSTOMY TUBE DRAINING WELL WITH BLOODY URINE WITH OUTPUT , MD AWARE. G TUBE IN PLACE , PATENT CONNECTED TO FEEDING ORDERED. PATIENT ON TELE MONITORING WITH SR 8O.'S AND ST 100. HOB KEPT ELEVATED AT ALL THE TIME. R UPPER ARM MIDLINE SITE CLEAN, DRY AND INTACT, RUNNING WITH NS @50CC/HR. SAFETY MAINTAINED, BED AT THE LOWEST POSITION, LOCKED SR UP x3, CALL LIGHT WITHIN REACH. WILL CONTINUE TO MONITOR.
--- NOTE | 2019-04-16 21:00 | NUR ---
RT NOTE PATIENT RECEIVED TRACHED ON MECHANICAL VENTILATION. AMBU BAG @ BEDSIDE. TX GIVEN, NO ADVERSE REACTIONS NOTED. SX DONE, TRACH SECURED AND PATENT. ALARMS ON AND AUDIBLE. VENT PLUGGED TO RED OUTLET. CONT. POX @ BEDSIDE. NO SOB NOTED. WILL MONITOR. Addendum: 04/16/19 at 2336 by AIDEE THOMPSON RT Amended: Links added.
[2019-04-16] MEDS: AMLODIPINE BESYLATE 5 MG TABLET GT SCH (21:48)
[2019-04-16] MEDS: TAMSULOSIN 0.4 MG CAP.SR.24H GT SCH (21:48)
[2019-04-17] VITALS (8 sets, daily range): BP systolic 117–145; BP diastolic 65–99
[2019-04-17] MEDS: IV D5W 1,000 ML IV PRN ×2 (00:51→11:26)
[2019-04-17] MEDS: ALBUTEROL FS 2.5 MG/3 ML VIAL.NEB NEB SCH ×4 (01:19→19:30)
[2019-04-17] MEDS: IPRATROPIUM NEB FS 0.5 MG/2.5 ML AMPUL.NEB IH SCH ×4 (01:19→19:30)
[2019-04-17] MEDS: BLOOD SUGAR DIAGNOSTIC 1 EACH STRIP IN SCH ×3 (06:07→17:03)
[2019-04-17] MEDS: PROSOURCE / PROSTAT (PYXIS) 30 ML UDC GT SCH ×3 (06:08→20:50)
--- NOTE | 2019-04-17 06:10 | NUR ---
OBJECTIVE C DEVELOPER CLOSING NOTE ENDORSED PT ON VDRF, AWAKE NONVERBAL, S/P PRBC, NO A/R NOTED, VS STABLE, WILL CONT' TO MONITOR H&H.
--- NOTE | 2019-04-17 07:05 | NUR ---
MOTORCOACH DRIVER OPENING NOTES RECEIVED PT LYING ON BED,PT IS OBTUNDED,ON TELE HR IS 92 WITH SR,WITH VENT AND TRACH DEPEND WITH PORTEX-8,AC 10 TV550 FIO2-35% AND PEEP5.TOLERATING WELL.NO SOB AND ACUTE DISTRESS NOTED.RIGHT NEPHROSTOMY TUBE IS IN PLACE WITH BLOODY OUTPUT AND PARK CATH WITH RED COLOR URINE NOTED.G TUBE IS IN PLACE WITH NEPRO @35CC/HR IS RUNNING.MINIMAL GASTRIC RESIDUAL NOTED,TOLERATING WELL.RIGHT UA MIDLINE WITH IV D5@100ML/HR IS RUNNING AND RIGHT WRIST G20,SL.SITE IS CLEAN,DRY AND INTACT.BED IS IN LOW POSITION AND LOCKED,CALL LIGHT IS WITHIN REACH.WILL CONTINUE TO MONITOR THE PT CLOSELY.
[2019-04-17 07:10] LABS: BASOPHILS % (AUTO) 0.3 % (0.0-2.0); EOSINOPHILS % (AUTO) 2.2 % (0.0-6.0); HEMATOCRIT 30 % (39-51); HEMOGLOBIN 9.7 g/dL (13.5-17.5); LYMPHOCYTES # (AUTO) 3.6 /CMM (0.8-4.8); LYMPHOCYTES % (AUTO) 25.9 % (20.0-44.0); MEAN CORPUSCULAR HGB CONC 33 g/dl (31.0-36.0); MEAN CORPUSCULAR VOLUME 97 fL (80-96); MONOCYTES # (AUTO) 1.8 /CMM (0.1-1.30); MONOCYTES % (AUTO) 12.8 % (2.0-12.0); NEUTROPHILS # (AUTO) 8.1 /CMM (1.8-8.9); NEUTROPHILS % (AUTO) 58.8 % (43.0-81.0); PLATELET COUNT (AUTO) 215 /CMM (150-450); RED BLOOD CELL COUNT(AUTO) 3.05 MIL/uL (4.5-6.0); WHITE BLOOD COUNT (AUTO) 13.8 K/uL (4.3-11.0)
[2019-04-17 07:20] LABS: CALCIUM, SERUM 8.6 mg/dL (8.5-10.1); CREATININE 2.1 mg/dL (0.6-1.3); MAGNESIUM 1.8 mg/dL (1.8-2.4); POTASSIUM 4.2 mmol/L (3.5-5.1)
[2019-04-17] MEDS: SUCRALFATE 1 G/10 ML UDC GT SCH ×4 (08:18→21:32)
[2019-04-17] MEDS: VALPROIC ACID 250 MG/5 ML UDC GT SCH ×2 (08:29→20:49)
[2019-04-17] MEDS: ACETAMINOPHEN 650 MG/20.3 ML UDC GT SCH (08:29)
[2019-04-17] MEDS: ACIDOPHILUS/BULGARICUS 1 EACH TAB.CHEW GT SCH ×3 (08:29→16:44)
[2019-04-17] MEDS: FAMOTIDINE/PF INJ 20 MG/2 ML VIAL IV SCH ×2 (08:30→20:49)
[2019-04-17] MEDS: MULTIVITAMINS,THERAGRAN 1 UDTAB TABLET GT SCH (08:30)
[2019-04-17] MEDS: METOPROLOL TARTRATE 50 MG TABLET GT SCH ×2 (08:30→20:49)
[2019-04-17] MEDS: DOCUSATE SODIUM LIQ 100 MG/10 ML UDC GT SCH ×2 (08:30→16:44)
[2019-04-17] MEDS: FERROUS SULFATE UDC 300 MG/5 ML UDC GT SCH ×3 (08:30→16:44)
[2019-04-17] MEDS: CALCIUM CARBONATE (1250) 500 MG TABLET GT SCH (08:30)
[2019-04-17] MEDS: FAMOTIDINE (20 MG) 20 MG TABLET GT SCH (08:35)
[2019-04-17] MEDS: Z GUARD REMEDY 2 OZ OINT TP SCH (08:35)
--- NOTE | 2019-04-17 10:01 | NUR ---
RT NOTE RECEIVED PT MECHANICALLY VENTILATED VIA CUFFED TRACHEOSTOMY TUBE. CUFF INFLATED. TRACH TUBE MIDLINE AND SECURE. VENTILATOR SETTINGS PRESCRIBED. ALARMS SET PER PROTOCOL AND AUDIBLE. VENT PLUGGED IN TO RED OUTLET. AMBU BAG AT BED SIDE. NO DISTRESS NOTED AT MOMENT. Addendum: 04/17/19 at 1002 by NAKITA JIMENEZ RT Amended: Links added.
[2019-04-17] MEDS: INSULIN REGULAR, HUMAN 100 UNIT/ML 3 ML VIAL SQ PRN ×2 (12:17→17:03)
--- NOTE | 2019-04-17 18:45 | NUR ---
INDUSTRIAL STAFF NURSE CLOSING NOTES PT IS LYING ON BED WITH MECH AND VENT DEPEND,TOLERATING WELL.NO SOB AND ACUTE DISTRESS NOTED.FREQUENT SUCTIONING PROVIDED.IV LINE ON RIGHT HAND AND RIGHT UPPER ARM MIDLINE PRESENT,SITE IS CLEAN,DRY AND INTACT.STILL HEMATURIA PRESENT IN RIGHT NEPHROSTOMY AND IN PARK CATH.RESPIRATION IS EVEN AND NONLABORED.IV D5 IS RUNNING @100CC/HR AND G TUBE FEEDING NEPRO @35CC/HR IS RUNNING,MINIMAL GASTRIC RESIDUAL NOTED,TOLERATING WELL.ENDORSED TO DENTAL SECRETARY RN FOR LIZETH.
--- NOTE | 2019-04-17 19:36 | NUR ---
COLLECTION MANAGER INITIAL NOTES PATIENT RECEIVED LYING IN BED. NO SOB OR ACUTE DISTRESS NOTED. RESPIRATION EVEN AND UNLABORED. TRACH INTACT, PATENT , CONNECTED TO VENT WITH PRESCRIBED SETTINGS. F/C IN PLACE, PATENT, DRAINING WELL WITH CHRONIC HEMATURIA URINE WITH OUTPUT . R NEPHROSTOMY TUBE DRAINING WELL WITH BLOODY URINE WITH OUTPUT , MD AWARE. G TUBE IN PLACE , PATENT CONNECTED TO FEEDING ORDERED. PATIENT ON TELE MONITORING WITH SR 8O.'S AND ST 100. HOB KEPT ELEVATED AT ALL THE TIME. R UPPER ARM MIDLINE SITE CLEAN, DRY AND INTACT, RUNNING WITH NS @100 CC/HR. SAFETY MAINTAINED, BED AT THE LOWEST POSITION, LOCKED SR UP x3, CALL LIGHT WITHIN REACH. WILL CONTINUE TO MONITOR.
--- NOTE | 2019-04-17 19:36 | NUR ---
RT NOTE PATIENT RECEIVED TRACHED ON MECHANICAL VENTILATION. CUFF CHECKED VIA CONTROL MANAGER. TX GIVEN, NO ADVERSE REACTIONS NOTED. SX DONE, TRACH SECURED AND PATENT. ALARMS ON AND AUDIBLE. NO SOB NOTED. WILL MONITOR T/O SHIFT. CONT. POX AND AMBU BAG @ BEDSIDE. Addendum: 04/17/19 at 1937 by AIDEE THOMPSON RT Amended: Links added.
[2019-04-17] MEDS: AMLODIPINE BESYLATE 5 MG TABLET GT SCH (21:32)
[2019-04-17] MEDS: TAMSULOSIN 0.4 MG CAP.SR.24H GT SCH (21:32)
[2019-04-18 00:19] VITALS: BP 135/82
[2019-04-18] MEDS: BLOOD SUGAR DIAGNOSTIC 1 EACH STRIP IN SCH ×3 (00:40→12:41)
[2019-04-18] MEDS: ALBUTEROL FS 2.5 MG/3 ML VIAL.NEB NEB SCH ×3 (01:26→14:03)
[2019-04-18] MEDS: IPRATROPIUM NEB FS 0.5 MG/2.5 ML AMPUL.NEB IH SCH ×3 (01:26→14:03)
[2019-04-18 04:57] VITALS: BP 122/82
[2019-04-18] MEDS: PROSOURCE / PROSTAT (PYXIS) 30 ML UDC GT SCH ×2 (05:22→12:41)
--- NOTE | 2019-04-18 06:19 | NUR ---
PROTEOMICS SCIENTIST CLOSING NOTES PATIENT ENDORSED LYING IN BED. NO SOB OR ACUTE DISTRESS NOTED. RESPIRATION EVEN AND UNLABORED. TRACH INTACT, PATENT , CONNECTED TO VENT WITH PRESCRIBED SETTINGS. F/C IN PLACE, PATENT, DRAINING WELL WITH CLOUDY YELLOW URINE WITH OUTPUT . R NEPHROSTOMY TUBE DRAINING WELL WITH BLOODY URINE WITH OUTPUT , MD AWARE. G TUBE IN PLACE , PATENT CONNECTED TO FEEDING ORDERED. PATIENT ON TELE MONITORING WITH SR 8O.'S AND ST 100. HOB KEPT ELEVATED AT ALL THE TIME. R UPPER ARM MIDLINE SITE CLEAN, DRY AND INTACT, RUNNING WITH NS @100CC/HR. SAFETY MAINTAINED, BED AT THE LOWEST POSITION, LOCKED SR UP x3, CALL LIGHT WITHIN REACH. WILL CONTINUE TO MONITOR.
[2019-04-18 06:54] LABS: CALCIUM, SERUM 8.5 mg/dL (8.5-10.1); CREATININE 1.9 mg/dL (0.6-1.3); POTASSIUM 3.1 mmol/L (3.5-5.1)
[2019-04-18 08:00] VITALS: BP 120/68
[2019-04-18] MEDS ORDERED: FAMOTIDINE (20 MG) 20 MG TABLET GT SCH (08:54)
[2019-04-18] MEDS ORDERED: POTASSIUM CHLORIDE 20 MEQ POWDER PACKET GT ONE ×2 (09:00→10:00)
[2019-04-18] MEDS: FERROUS SULFATE UDC 300 MG/5 ML UDC GT SCH ×2 (09:49→12:41)
[2019-04-18] MEDS: ACETAMINOPHEN 650 MG/20.3 ML UDC GT SCH (09:49)
[2019-04-18] MEDS: DOCUSATE SODIUM LIQ 100 MG/10 ML UDC GT SCH (09:49)
[2019-04-18] MEDS: VALPROIC ACID 250 MG/5 ML UDC GT SCH (09:49)
[2019-04-18] MEDS: SUCRALFATE 1 G/10 ML UDC GT SCH ×2 (09:49→12:41)
[2019-04-18] MEDS: ACIDOPHILUS/BULGARICUS 1 EACH TAB.CHEW GT SCH ×2 (09:50→12:41)
[2019-04-18] MEDS: CALCIUM CARBONATE (1250) 500 MG TABLET GT SCH (09:50)
[2019-04-18] MEDS: METOPROLOL TARTRATE 50 MG TABLET GT SCH (09:50)
[2019-04-18] MEDS: MULTIVITAMINS,THERAGRAN 1 UDTAB TABLET GT SCH (09:50)
[2019-04-18] MEDS: Z GUARD REMEDY 2 OZ OINT TP SCH (10:13)
[2019-04-18 12:00] VITALS: BP 130/72
--- NOTE | 2019-04-18 15:30 | NUR ---
telegraphic typewriter operator chief notes pt discharged with ambulance and rt. report given to ish at [facility]. pt on vent to [facility]. tolerating settings. vs stable. wound pics taken. daughter aware of transfer. med recon in discharge packet. tele box removed. iv's removed. pt sent to snf with holm cath in place.
== END 2019-04-18 15:37 | DRG 254 ==
LOC: ER 23:49 → TELE 04-14 01:30 → TELE1 04-14 02:08
PROC: 05HB33Z Insertion of Infusion Device into Right Basilic Vein, Percutaneous Approach (ICD-10-PCS; principal; 2019-04-14)
PROC: 30233N1 Transfusion of Nonautologous Red Blood Cells into Peripheral Vein, Percutaneous Approach (ICD-10-PCS; principal; 2019-04-14)
PROC: 5A1955Z Respiratory Ventilation, Greater than 96 Consecutive Hours (ICD-10-PCS; principal; 2019-04-14)
PROC: 0DJ08ZZ Inspection of Upper Intestinal Tract, Via Natural or Artificial Opening Endoscopic (ICD-10-PCS; 2019-04-16)
DX: K31.7 Polyp of stomach and duodenum (principal); Z99.11 Dependence on respirator [ventilator] status; G93.49 Other encephalopathy; E43 Unspecified severe protein-calorie malnutrition; J96.10 Chronic respiratory failure, unspecified whether with hypoxia or hypercapnia; N17.9 Acute kidney failure, unspecified; R53.2 Functional quadriplegia; N18.4 Chronic kidney disease, stage 4 (severe); C78.00 Secondary malignant neoplasm of unspecified lung; Z93.0 Tracheostomy status; C79.51 Secondary malignant neoplasm of bone; D68.59 Other primary thrombophilia; E87.0 Hyperosmolality and hypernatremia; E11.9 Type 2 diabetes mellitus without complications; G40.909 Epilepsy, unspecified, not intractable, without status epilepticus; K21.9 Gastro-esophageal reflux disease without esophagitis; E11.22 Type 2 diabetes mellitus with diabetic chronic kidney disease; I12.9 Hypertensive chronic kidney disease with stage 1 through stage 4 chronic kidney disease, or unspecified chronic kidney disease; N13.30 Unspecified hydronephrosis; F09 Unspecified mental disorder due to known physiological condition; C61 Malignant neoplasm of prostate; R13.10 Dysphagia, unspecified; N40.0 Benign prostatic hyperplasia without lower urinary tract symptoms; Z93.1 Gastrostomy status; Z79.4 Long term (current) use of insulin; Z79.899 Other long term (current) drug therapy; Z79.01 Long term (current) use of anticoagulants; Z79.51 Long term (current) use of inhaled steroids; D53.9 Nutritional anemia, unspecified; C79.82 Secondary malignant neoplasm of genital organs; Z74.09 Other reduced mobility; Z93.6 Other artificial openings of urinary tract status; Z74.01 Bed confinement status; N32.0 Bladder-neck obstruction
CPT/HCPCS: 31720; 36415; 71045-TC; 80048-TC; 80053-TC; 80076-TC; 80164-TC; 82272-TC; 82728-TC; 82962-TC; 83540-TC; 83735-TC; 84100-TC; 85025-TC; 85730-TC; 86850-TC; 86921-TC; 87081-TC; 94002-TC; 94003-TC; 94760-TC; 94762-TC; 99082-TC; A4623; A6403; G0378; J1815; J2704; J3475; J3490; J7030; J7042; J7050; J7060; J7070; P9016-BL

== ENCOUNTER 2019-04-23 09:54 | Inpatient (IN) | payer MEDICAID ==
[~2019-04-23] VITALS: Ht 167.6 cm; Wt 77.1 kg
[2019-04-23 10:32] LABS: PLATELET COUNT (AUTO) 350 /CMM (150-450)
[2019-04-23 10:36] LABS: BASOPHILS % (AUTO) 0.3 % (0.0-2.0); LYMPHOCYTES # (AUTO) 4.8 /CMM (0.8-4.8); LYMPHOCYTES % (AUTO) 34.8 % (20.0-44.0); MEAN CORPUSCULAR HGB CONC 34 g/dl (31.0-36.0); MEAN CORPUSCULAR VOLUME 96 fL (80-96); MONOCYTES # (AUTO) 1.7 /CMM (0.1-1.30); MONOCYTES % (AUTO) 12.5 % (2.0-12.0); NEUTROPHILS # (AUTO) 6.9 /CMM (1.8-8.9); NEUTROPHILS % (AUTO) 50.4 % (43.0-81.0); RED BLOOD CELL COUNT(AUTO) 2.06 MIL/uL (4.5-6.0); WHITE BLOOD COUNT (AUTO) 13.8 K/uL (4.3-11.0)
[2019-04-23 10:37] LABS: HEMOGLOBIN 6.7 g/dL (13.5-17.5)
[2019-04-23 10:38] LABS: HEMATOCRIT 20 % (39-51)
[2019-04-23 10:46] LABS: ALANINE AMINOTRANSFERASE 14 U/L (12-78); ALBUMIN 1.5 g/dL (3.4-5.0); ALKALINE PHOSPHATASE 161 U/L (46-116); ASPARTATE AMINOTRANSFERASE 31 U/L (15-37); BILIRUBIN,DIRECT 0.1 mg/dL (0.0-0.2); BILIRUBIN,TOTAL 0.1 mg/dL (0.2-1.0); CALCIUM, SERUM 8.6 mg/dL (8.5-10.1); CARBON DIOXIDE 25 mmol/L (21-32); CREATININE 2.6 mg/dL (0.6-1.3); GLUCOSE 98 mg/dL (74-106); TOTAL PROTEIN, SERUM 9.8 g/dL (6.4-8.2); UREA NITROGEN, BLOOD 58 mg/dL (7-18)
[2019-04-23] MEDS ORDERED: NUT.237L30 (10:47)
[2019-04-23] MEDS ORDERED: PROT946L GT (10:47)
[2019-04-23] MEDS ORDERED: ASCO500T9 GT (10:47)
[2019-04-23 10:50] LABS: CHLORIDE 109 mmol/L (98-107); POTASSIUM 3.3 mmol/L (3.5-5.1); SODIUM SERUM 144 mmol/L (136-145)
[2019-04-23] MEDS ORDERED: IV NS 0.9% 1,000 ML BAG IV ONE ×2 (11:00→13:30)
[2019-04-23] MEDS ORDERED: PIPERACILLIN /TAZOBACTAM 3.375 G in IV D5W 50 ML IV ONE (11:00)
[2019-04-23] MEDS ORDERED: VANCOMYCIN 1 GM in IV D5W 250 ML IV ONE ×2 (11:00→15:00)
[2019-04-23 11:03] LABS: APPEARANCE,URINE Clear (CLEAR); BILIRUBIN,URINE Negative (NEGATIVE); BLOOD, URINE Large Ery/uL (NEGATIVE); COLOR,URINE Yellow (YELLOW); KETONES,URINE Negative (NEGATIVE); LEUKOCYTE ESTERASE ,URINE Small (NEGATIVE); NITRITE, URINE Negative (NEGATIVE); PH,URINE 6.5 (5.0-8.0); PROTEIN,URINE 100 mg/dl (NEGATIVE); UGLUCOSE Negative (NEGATIVE); UROBILINOGEN,URINE 0.2 EU/dL (0.2)
[2019-04-23 11:05] LABS: BACTERIA,URINE Few /HPF (None Seen)
[2019-04-23 11:06] LABS: SQUAMOUS EPITHELIAL CELL,UR Rare /HPF (None Seen)
[2019-04-23] MEDS ORDERED: PIPERACILLIN /TAZOBACTAM 3.375 G VIAL IV ONE (11:25)
[2019-04-23 11:35] LABS: EOSINOPHILS % (MANUAL) 2 % (0-4); LYMPHOCYTES % (MANUAL) 42 % (16-48); MONOCYTES % (MANUAL) 10 % (0-11.0); NEUTROPHILS % (MANUAL) 46 (42-76)
[2019-04-23] MEDS ORDERED: VANCOMYCIN 1 GM VIAL ONE (11:53)
[2019-04-23] MEDS ORDERED: CEFE1FRO IV (12:01)
[2019-04-23] MEDS ORDERED: METR-147 PO (12:01)
[2019-04-23] MEDS ORDERED: PANTOPRAZOLE 40 MG VIAL IV SCH ×2 (13:00→13:30)
[2019-04-23] MEDS ORDERED: PANTOPRAZOLE 40 MG VIAL IV ONE (13:00)
[2019-04-23] MEDS ORDERED: ACETAMINOPHEN 650 MG/SUPP.RECT RC ONE (13:00)
[2019-04-23] MEDS ORDERED: ACETAMINOPHEN 650 MG/SUPP.RECT RC PRN ×2 (13:00→13:30)
[2019-04-23] MEDS ORDERED: IPRATROPIUM NEB FS 0.5 MG/2.5 ML AMPUL.NEB IH PRN (13:30)
[2019-04-23] MEDS ORDERED: ONDANSETRON HCL/PF 4 MG/2 ML VIAL IVP PRN (13:30)
[2019-04-23] MEDS ORDERED: FEE PK DOSING 1 MIN EA MC ONE (13:54)
[2019-04-23 14:00] VITALS: BP 106/66
[2019-04-23 14:15] VITALS: BP 110/60
[2019-04-23 14:45] VITALS: BP 110/69
[2019-04-23 15:05] LABS: CALCIUM, SERUM 8.8 mg/dL (8.5-10.1); CARBON DIOXIDE 23 mmol/L (21-32); CHLORIDE 109 mmol/L (98-107); CREATININE 2.5 mg/dL (0.6-1.3); GLUCOSE 121 mg/dL (74-106); POTASSIUM 3.2 mmol/L (3.5-5.1); SODIUM SERUM 143 mmol/L (136-145); UREA NITROGEN, BLOOD 57 mg/dL (7-18)
[2019-04-23 15:11] LABS: ALANINE AMINOTRANSFERASE 17 U/L (12-78); ALBUMIN 1.5 g/dL (3.4-5.0); ALKALINE PHOSPHATASE 156 U/L (46-116); ASPARTATE AMINOTRANSFERASE 33 U/L (15-37); BILIRUBIN,DIRECT 0.1 mg/dL (0.0-0.2); BILIRUBIN,TOTAL 0.2 mg/dL (0.2-1.0); TOTAL PROTEIN, SERUM 10.1 g/dL (6.4-8.2)
[2019-04-23 16:00] VITALS: BP 110/69
[2019-04-23 16:07] VITALS: BP 106/76
[2019-04-23] MEDS: DOCUSATE SODIUM LIQ 100 MG/10 ML UDC GT SCH (17:34)
[2019-04-23] MEDS ORDERED: PIPERACILLIN /TAZOBACTAM 3.375 G in IV D5W 50 ML IV SCH (18:00)
[2019-04-23] MEDS: ZOSYN IVPB 2.25 G in IV D5W 50ml IV SCH ×2 (18:29→23:06)
[2019-04-23] MEDS: GLUCERNA 1.2 1,000 ML BOTTLE GT PRN (18:46)
[2019-04-23] MEDS: IV NS 0.9% 1,000 ML IV PRN (18:46)
[2019-04-23] MEDS ORDERED: ALBUTEROL FS 2.5 MG/3 ML VIAL.NEB NEB PRN (19:30)
[2019-04-23] MEDS: ALBUTEROL FS 2.5 MG/3 ML VIAL.NEB NEB SCH (19:56)
[2019-04-23] MEDS: IPRATROPIUM NEB FS 0.5 MG/2.5 ML AMPUL.NEB IH SCH (19:56)
[2019-04-23 20:00] VITALS: BP 105/71
[2019-04-23] MEDS ORDERED: NEXIUM 40 MG VIAL IV SCH (21:00)
[2019-04-23] MEDS ORDERED: HEPARIN SODIUM, PORCINE 5000 UNITS/1 ML VIAL SQ SCH (21:00)
[2019-04-23] MEDS: VALPROIC ACID 250 MG/5 ML UDC GT SCH (21:38)
[2019-04-23] MEDS: SUCRALFATE 1 G/10 ML UDC GT SCH (21:38)
[2019-04-23] MEDS: TAMSULOSIN 0.4 MG CAP.SR.24H GT SCH (21:39)
[2019-04-23] MEDS: INSULIN GLARGINE, 100 UNIT/ML CARTRIDGE SQ SCH (21:44)
[2019-04-23] MEDS ORDERED: INSULIN GLARGINE, 100 UNIT/ML CARTRIDGE SQ SCH (22:00)
[2019-04-23] MEDS ORDERED: PANTOPRAZOLE 40 MG VIAL ONE (23:36)
[2019-04-24] VITALS: BP 97/54
[2019-04-24] MEDS ORDERED: PANTOPRAZOLE 40 MG VIAL IV SCH
[2019-04-24] MEDS: ALBUTEROL FS 2.5 MG/3 ML VIAL.NEB NEB SCH ×4 (00:52→19:22)
[2019-04-24] MEDS: IPRATROPIUM NEB FS 0.5 MG/2.5 ML AMPUL.NEB IH SCH ×4 (00:52→19:22)
[2019-04-24 04:00] VITALS: BP 108/63
[2019-04-24] MEDS: IV NS 0.9% 1,000 ML IV PRN ×2 (04:39→18:28)
[2019-04-24] MEDS: ZOSYN IVPB 2.25 G in IV D5W 50ml IV SCH ×3 (05:11→17:28)
[2019-04-24 06:46] LABS: BASOPHILS % (AUTO) 0.1 % (0.0-2.0); EOSINOPHILS % (AUTO) 5.6 % (0.0-6.0); HEMATOCRIT 26 % (39-51); HEMOGLOBIN 8.7 g/dL (13.5-17.5); LYMPHOCYTES # (AUTO) 2.4 /CMM (0.8-4.8); LYMPHOCYTES % (AUTO) 25.2 % (20.0-44.0); MEAN CORPUSCULAR HGB CONC 34 g/dl (31.0-36.0); MEAN CORPUSCULAR VOLUME 94 fL (80-96); MONOCYTES # (AUTO) 0.8 /CMM (0.1-1.30); MONOCYTES % (AUTO) 8.7 % (2.0-12.0); NEUTROPHILS # (AUTO) 5.7 /CMM (1.8-8.9); NEUTROPHILS % (AUTO) 60.4 % (43.0-81.0); PLATELET COUNT (AUTO) 315 /CMM (150-450); RED BLOOD CELL COUNT(AUTO) 2.73 MIL/uL (4.5-6.0); WHITE BLOOD COUNT (AUTO) 9.4 K/uL (4.3-11.0)
[2019-04-24 07:13] LABS: ALBUMIN 1.5 g/dL (3.4-5.0); BILIRUBIN,TOTAL 0.3 mg/dL (0.2-1.0); CALCIUM, SERUM 8.4 mg/dL (8.5-10.1); CREATININE 2.3 mg/dL (0.6-1.3); MAGNESIUM 1.6 mg/dL (1.8-2.4); POTASSIUM 3.7 mmol/L (3.5-5.1); TOTAL PROTEIN, SERUM 9.8 g/dL (6.4-8.2)
[2019-04-24 08:00] VITALS: BP_SYST 106; BP_SYST 111; BP_DIAS 62; BP_DIAS 69
[2019-04-24] MEDS: DOCUSATE SODIUM LIQ 100 MG/10 ML UDC GT SCH ×2 (08:36→17:28)
[2019-04-24] MEDS: VALPROIC ACID 250 MG/5 ML UDC GT SCH ×2 (08:36→21:41)
[2019-04-24] MEDS: NEXIUM 40 MG VIAL IV SCH ×2 (08:36→21:40)
[2019-04-24] MEDS: ACETAMINOPHEN 650 MG/20.3 ML UDC GT SCH (08:36)
[2019-04-24] MEDS: SUCRALFATE 1 G/10 ML UDC GT SCH ×4 (08:37→21:40)
[2019-04-24] MEDS: CALCIUM CARBONATE (1250) 500 MG TABLET GT SCH (08:38)
[2019-04-24] MEDS ORDERED: Magnesium 1GM/D5W 100ML PREMIX 100 ML IV SCH (09:44)
[2019-04-24 12:00] VITALS: BP 118/74
[2019-04-24 16:00] VITALS: BP_SYST 107; BP_SYST 111; BP_DIAS 67; BP_DIAS 79
[2019-04-24 18:37] LABS: OCCULT BLOOD STOOL NEGATIVE (NEGATIVE)
[2019-04-24 20:00] VITALS: BP 107/70
[2019-04-24] MEDS: CEFEPIME 1 GM in IV D5W 50 ML IV SCH (20:14)
[2019-04-24] MEDS: TAMSULOSIN 0.4 MG CAP.SR.24H GT SCH (21:40)
[2019-04-24] MEDS: INSULIN GLARGINE, 100 UNIT/ML CARTRIDGE SQ SCH (21:42)
[2019-04-24] MEDS: VANCOMYCIN 1.25 GM in IV D5W 500 ML IV SCH (23:33)
[2019-04-25] VITALS (7 sets, daily range): BP systolic 106–142; BP diastolic 69–90
[2019-04-25] MEDS: ALBUTEROL FS 2.5 MG/3 ML VIAL.NEB NEB SCH ×5 (01:14→19:53)
[2019-04-25] MEDS: IPRATROPIUM NEB FS 0.5 MG/2.5 ML AMPUL.NEB IH SCH ×4 (01:14→19:53)
[2019-04-25] MEDS: GLUCERNA 1.2 1,000 ML BOTTLE GT PRN (06:56)
[2019-04-25 07:05] LABS: CALCIUM, SERUM 8.2 mg/dL (8.5-10.1); MAGNESIUM 1.8 mg/dL (1.8-2.4); POTASSIUM 3.3 mmol/L (3.5-5.1)
[2019-04-25] MEDS: SUCRALFATE 1 G/10 ML UDC GT SCH ×4 (08:08→21:58)
[2019-04-25] MEDS: DOCUSATE SODIUM LIQ 100 MG/10 ML UDC GT SCH ×2 (08:08→16:36)
[2019-04-25] MEDS: CALCIUM CARBONATE (1250) 500 MG TABLET GT SCH (08:08)
[2019-04-25] MEDS: VALPROIC ACID 250 MG/5 ML UDC GT SCH ×2 (08:08→21:58)
[2019-04-25] MEDS: ACETAMINOPHEN 650 MG/20.3 ML UDC GT SCH (08:08)
[2019-04-25] MEDS: NEXIUM 40 MG VIAL IV SCH (08:11)
[2019-04-25] MEDS: SILVER SULFADIAZINE CREAM 25 GM TUBE TP SCH (08:24)
[2019-04-25] MEDS ORDERED: POTASSIUM CHLORIDE 20 MEQ POWDER PACKET GT SCH ×2 (10:00→11:30)
[2019-04-25] MEDS: IV NS 0.9% 1,000 ML IV PRN ×2 (11:26→23:02)
[2019-04-25] MEDS: CEFEPIME 1 GM in IV D5W 50 ML IV SCH (19:45)
[2019-04-25] MEDS: ACETAMINOPHEN 325 MG TABLET PO PRN (21:58)
[2019-04-25] MEDS: TAMSULOSIN 0.4 MG CAP.SR.24H GT SCH (21:58)
[2019-04-25] MEDS: PANTOPRAZOLE 40 MG/PACK PACK GT SCH (21:58)
[2019-04-25] MEDS: INSULIN GLARGINE, 100 UNIT/ML CARTRIDGE SQ SCH (22:00)
[2019-04-26] VITALS (11 sets, daily range): BP systolic 92–142; BP diastolic 49–90
[2019-04-26] MEDS: GLUCERNA 1.2 1,000 ML BOTTLE GT PRN (01:12)
[2019-04-26] MEDS: ALBUTEROL FS 2.5 MG/3 ML VIAL.NEB NEB SCH ×4 (01:30→19:30)
[2019-04-26] MEDS: IPRATROPIUM NEB FS 0.5 MG/2.5 ML AMPUL.NEB IH SCH ×4 (02:34→19:30)
[2019-04-26] MEDS: ACETAMINOPHEN 325 MG TABLET PO PRN (04:30)
[2019-04-26 06:44] LABS: BASOPHILS % (AUTO) 0.3 % (0.0-2.0); EOSINOPHILS % (AUTO) 1.2 % (0.0-6.0); LYMPHOCYTES # (AUTO) 2.9 /CMM (0.8-4.8); LYMPHOCYTES % (AUTO) 21.5 % (20.0-44.0); MEAN CORPUSCULAR HGB CONC 34 g/dl (31.0-36.0); MEAN CORPUSCULAR VOLUME 95 fL (80-96); MONOCYTES # (AUTO) 1.5 /CMM (0.1-1.30); MONOCYTES % (AUTO) 10.9 % (2.0-12.0); NEUTROPHILS # (AUTO) 8.8 /CMM (1.8-8.9); NEUTROPHILS % (AUTO) 66.1 % (43.0-81.0); PLATELET COUNT (AUTO) 314 /CMM (150-450); RED BLOOD CELL COUNT(AUTO) 2.12 MIL/uL (4.5-6.0); WHITE BLOOD COUNT (AUTO) 13.3 K/uL (4.3-11.0)
[2019-04-26 06:55] LABS: HEMATOCRIT 20 % (39-51); HEMOGLOBIN 6.7 g/dL (13.5-17.5)
[2019-04-26 07:01] LABS: CALCIUM, SERUM 8.1 mg/dL (8.5-10.1); CREATININE 1.9 mg/dL (0.6-1.3); MAGNESIUM 1.7 mg/dL (1.8-2.4); PHOSPHORUS 1.6 mg/dL (2.5-4.9); POTASSIUM 3.5 mmol/L (3.5-5.1)
[2019-04-26 07:19] LABS: NEUTROPHILS % (MANUAL) 62 (42-76)
[2019-04-26 07:20] LABS: BAND % (MANUAL) 3 % (0.0-5.0); EOSINOPHILS % (MANUAL) 2 % (0-4); LYMPHOCYTES % (MANUAL) 25 % (16-48); MONOCYTES % (MANUAL) 8 % (0-11.0)
[2019-04-26] MEDS: SUCRALFATE 1 G/10 ML UDC GT SCH ×4 (08:07→21:33)
[2019-04-26] MEDS: DOCUSATE SODIUM LIQ 100 MG/10 ML UDC GT SCH ×2 (08:13→16:37)
[2019-04-26] MEDS: VALPROIC ACID 250 MG/5 ML UDC GT SCH ×2 (08:14→20:07)
[2019-04-26] MEDS: CALCIUM CARBONATE (1250) 500 MG TABLET GT SCH (08:14)
[2019-04-26] MEDS: SILVER SULFADIAZINE CREAM 25 GM TUBE TP SCH (08:14)
[2019-04-26] MEDS: ACETAMINOPHEN 650 MG/20.3 ML UDC GT SCH (08:14)
[2019-04-26] MEDS: PANTOPRAZOLE 40 MG/PACK PACK GT SCH ×2 (08:14→20:07)
[2019-04-26] MEDS: IV NS 0.9% 1,000 ML IV PRN (09:34)
[2019-04-26] MEDS ORDERED: Magnesium 1GM/D5W 100ML PREMIX 100 ML IV SCH (10:14)
[2019-04-26] MEDS ORDERED: NEUTRA PHOS 1 POWD.PACKET GT ONE (10:30)
[2019-04-26] MEDS: VANCOMYCIN 1.25 GM in IV D5W 500 ML IV SCH (12:17)
[2019-04-26] MEDS: IV 1/2NS 1000 ML 1,000 ML IV PRN (12:18)
[2019-04-26] MEDS: CEFEPIME 1 GM in IV D5W 50 ML IV SCH (20:06)
[2019-04-26] MEDS: TAMSULOSIN 0.4 MG CAP.SR.24H GT SCH (21:33)
[2019-04-26] MEDS: INSULIN GLARGINE, 100 UNIT/ML CARTRIDGE SQ SCH (21:41)
[2019-04-27] VITALS (9 sets, daily range): BP systolic 106–136; BP diastolic 62–81
[2019-04-27] MEDS: GLUCERNA 1.2 1,000 ML BOTTLE GT PRN ×2 (00:33→23:03)
[2019-04-27] MEDS: IPRATROPIUM NEB FS 0.5 MG/2.5 ML AMPUL.NEB IH SCH ×4 (01:14→20:01)
[2019-04-27] MEDS: ALBUTEROL FS 2.5 MG/3 ML VIAL.NEB NEB SCH ×4 (01:14→20:03)
[2019-04-27] MEDS: IV 1/2NS 1000 ML 1,000 ML IV PRN ×2 (03:44→12:23)
[2019-04-27 06:51] LABS: CALCIUM, SERUM 8.5 mg/dL (8.5-10.1); CREATININE 1.8 mg/dL (0.6-1.3); MAGNESIUM 1.7 mg/dL (1.8-2.4); PHOSPHORUS 2.2 mg/dL (2.5-4.9); POTASSIUM 3.8 mmol/L (3.5-5.1)
[2019-04-27 08:41] LABS: BASOPHILS % (AUTO) 0.4 % (0.0-2.0); EOSINOPHILS % (AUTO) 3.7 % (0.0-6.0); HEMATOCRIT 28 % (39-51); HEMOGLOBIN 9.4 g/dL (13.5-17.5); LYMPHOCYTES # (AUTO) 2.6 /CMM (0.8-4.8); LYMPHOCYTES % (AUTO) 23.6 % (20.0-44.0); MEAN CORPUSCULAR HGB CONC 34 g/dl (31.0-36.0); MEAN CORPUSCULAR VOLUME 95 fL (80-96); MONOCYTES # (AUTO) 1.2 /CMM (0.1-1.30); MONOCYTES % (AUTO) 11.4 % (2.0-12.0); NEUTROPHILS # (AUTO) 6.6 /CMM (1.8-8.9); NEUTROPHILS % (AUTO) 60.9 % (43.0-81.0); PLATELET COUNT (AUTO) 362 /CMM (150-450); RED BLOOD CELL COUNT(AUTO) 2.96 MIL/uL (4.5-6.0); WHITE BLOOD COUNT (AUTO) 10.8 K/uL (4.3-11.0)
[2019-04-27] MEDS: SUCRALFATE 1 G/10 ML UDC GT SCH ×4 (08:41→21:08)
[2019-04-27] MEDS: CALCIUM CARBONATE (1250) 500 MG TABLET GT SCH (09:33)
[2019-04-27] MEDS: PANTOPRAZOLE 40 MG/PACK PACK GT SCH ×2 (09:33→21:08)
[2019-04-27] MEDS: DOCUSATE SODIUM LIQ 100 MG/10 ML UDC GT SCH ×2 (09:33→18:30)
[2019-04-27] MEDS: ACETAMINOPHEN 650 MG/20.3 ML UDC GT SCH (09:33)
[2019-04-27] MEDS: VALPROIC ACID 250 MG/5 ML UDC GT SCH ×2 (09:33→21:08)
[2019-04-27] MEDS: SILVER SULFADIAZINE CREAM 25 GM TUBE TP SCH (09:38)
[2019-04-27] MEDS ORDERED: VANCOMYCIN 1.25 GM in IV D5W 500 ML IV SCH (12:00)
[2019-04-27] MEDS ORDERED: Magnesium 1GM/D5W 100ML PREMIX 100 ML IV SCH (12:30)
[2019-04-27] MEDS ORDERED: NEUTRA PHOS 1 POWD.PACKET GT ONE (17:30)
[2019-04-27] MEDS: CEFEPIME 1 GM in IV D5W 50 ML IV SCH (20:19)
[2019-04-27] MEDS: TAMSULOSIN 0.4 MG CAP.SR.24H GT SCH (21:08)
[2019-04-27] MEDS: INSULIN GLARGINE, 100 UNIT/ML CARTRIDGE SQ SCH (21:25)
[2019-04-28] VITALS: BP 131/80
[2019-04-28] MEDS: IV 1/2NS 1000 ML 1,000 ML IV PRN ×2 (00:40→11:13)
[2019-04-28] MEDS: IPRATROPIUM NEB FS 0.5 MG/2.5 ML AMPUL.NEB IH SCH ×4 (01:13→19:30)
[2019-04-28] MEDS: ALBUTEROL FS 2.5 MG/3 ML VIAL.NEB NEB SCH ×4 (01:13→19:30)
[2019-04-28 04:00] VITALS: BP 115/80
[2019-04-28 05:08] VITALS: BP 115/80
[2019-04-28] MEDS: SUCRALFATE 1 G/10 ML UDC GT SCH ×3 (06:31→17:36)
[2019-04-28 07:45] LABS: CALCIUM, SERUM 8.7 mg/dL (8.5-10.1); CREATININE 1.6 mg/dL (0.6-1.3); PHOSPHORUS 2.4 mg/dL (2.5-4.9); POTASSIUM 3.8 mmol/L (3.5-5.1)
[2019-04-28 08:00] VITALS: BP 118/73
[2019-04-28] MEDS: ACETAMINOPHEN 650 MG/20.3 ML UDC GT SCH (09:14)
[2019-04-28] MEDS: DOCUSATE SODIUM LIQ 100 MG/10 ML UDC GT SCH ×2 (09:15→17:36)
[2019-04-28] MEDS: PANTOPRAZOLE 40 MG/PACK PACK GT SCH (09:15)
[2019-04-28] MEDS: CALCIUM CARBONATE (1250) 500 MG TABLET GT SCH (09:15)
[2019-04-28] MEDS: VALPROIC ACID 250 MG/5 ML UDC GT SCH (09:15)
[2019-04-28] MEDS: SILVER SULFADIAZINE CREAM 25 GM TUBE TP SCH (09:17)
[2019-04-28 12:00] VITALS: BP 125/75
[2019-04-28] MEDS ORDERED: NEUTRA PHOS 1 POWD.PACKET NG ONE (14:00)
[2019-04-28] MEDS ORDERED: PANT40SU2 GT (14:37)
[2019-04-28] MEDS: GLUCERNA 1.2 1,000 ML BOTTLE GT PRN (15:20)
[2019-04-28 16:00] VITALS: BP 122/80
== END 2019-04-28 19:50 | DRG 720 ==
LOC: ER 10:02 → TELE-TD 12:19 → TELE1 19:17 → TELE-TD 19:41 → TELE1 04-24 09:36 → ICU 04-25 09:20 → TELE1 04-25 18:00
PROVIDERS: ADMIT Internal Medicine; ATTEND Family Medicine
PROC: 30233N1 Transfusion of Nonautologous Red Blood Cells into Peripheral Vein, Percutaneous Approach (ICD-10-PCS; principal; 2019-04-23)
PROC: 5A1955Z Respiratory Ventilation, Greater than 96 Consecutive Hours (ICD-10-PCS; principal; 2019-04-23)
PROC: 0JBP0ZZ Excision of Left Lower Leg Subcutaneous Tissue and Fascia, Open Approach (ICD-10-PCS; 2019-04-28)
PROC: 0JBN0ZZ Excision of Right Lower Leg Subcutaneous Tissue and Fascia, Open Approach (ICD-10-PCS; 2019-04-28)
DX: A41.9 Sepsis, unspecified organism (principal); J69.0 Pneumonitis due to inhalation of food and vomit; G93.1 Anoxic brain damage, not elsewhere classified; E43 Unspecified severe protein-calorie malnutrition; Z99.11 Dependence on respirator [ventilator] status; J96.10 Chronic respiratory failure, unspecified whether with hypoxia or hypercapnia; N17.9 Acute kidney failure, unspecified; N18.4 Chronic kidney disease, stage 4 (severe); D68.59 Other primary thrombophilia; I12.9 Hypertensive chronic kidney disease with stage 1 through stage 4 chronic kidney disease, or unspecified chronic kidney disease; G40.909 Epilepsy, unspecified, not intractable, without status epilepticus; E11.22 Type 2 diabetes mellitus with diabetic chronic kidney disease; E87.0 Hyperosmolality and hypernatremia; K21.9 Gastro-esophageal reflux disease without esophagitis; Z93.1 Gastrostomy status; Z93.6 Other artificial openings of urinary tract status; D62 Acute posthemorrhagic anemia; F09 Unspecified mental disorder due to known physiological condition; E88.09 Other disorders of plasma-protein metabolism, not elsewhere classified; Z85.46 Personal history of malignant neoplasm of prostate; C79.51 Secondary malignant neoplasm of bone; M24.571 Contracture, right ankle; M24.572 Contracture, left ankle; N13.6 Pyonephrosis; Z68.27 Body mass index [BMI] 27.0-27.9, adult; R13.10 Dysphagia, unspecified; Z74.01 Bed confinement status; E11.51 Type 2 diabetes mellitus with diabetic peripheral angiopathy without gangrene; E66.01 Morbid (severe) obesity due to excess calories; Z79.4 Long term (current) use of insulin; I70.248 Atherosclerosis of native arteries of left leg with ulceration of other part of lower leg; L97.829 Non-pressure chronic ulcer of other part of left lower leg with unspecified severity; I70.238 Atherosclerosis of native arteries of right leg with ulceration of other part of lower leg; L97.819 Non-pressure chronic ulcer of other part of right lower leg with unspecified severity; K31.7 Polyp of stomach and duodenum; K92.2 Gastrointestinal hemorrhage, unspecified; R91.8 Other nonspecific abnormal finding of lung field
CPT/HCPCS: 31720; 36415; 71045-TC; 76770-TC; 80048-TC; 80053-TC; 80076-TC; 80202-TC; 81000-TC; 82272-TC; 82962-TC; 83605-TC; 83735-TC; 84100-TC; 84484-TC; 85025-TC; 85730-TC; 86850-TC; 86921-TC; 87040-TC; 87045-TC; 87070-TC; 87081-TC; 87086-TC; 87186-TC; 89055; 94002-TC; 94003-TC; 94640-TC; 94760-TC; 94762-TC; 99082-TC; A4623; A7526; C9113; G0378; J0692; J1815; J2543; J3370; J3475; J3490; J7030; J7050; J7060; P9016-BL

== ENCOUNTER 2019-06-17 22:23 | Inpatient (IN) | payer MEDICAID ==
[~2019-06-17] VITALS: Ht 167.6 cm; Wt 68.0 kg
[~2019-06-17 22:23] MED LIST changes: +ASCO500T9 GT; -CRAN3875 GT; -FERR300L GT; +NUT.237L30; -NUT.237L67 GT; +PANT40SU2 GT; +PROT946L GT
[2019-06-17] MEDS ORDERED: IV NS 0.9% 1,000 ML BAG IV ONE (22:30)
[2019-06-17 22:44] LABS: BASOPHILS # (AUTO) 0.1 /CMM (0.0-0.2); BASOPHILS % (AUTO) 0.3 % (0.0-2.0); LYMPHOCYTES # (AUTO) 4.8 /CMM (0.8-4.8); LYMPHOCYTES % (AUTO) 21.7 % (20.0-44.0); MEAN CORPUSCULAR HGB CONC 33 g/dl (31.0-36.0); MEAN CORPUSCULAR VOLUME 99 fL (80-96); MONOCYTES # (AUTO) 2.5 /CMM (0.1-1.30); MONOCYTES % (AUTO) 11.3 % (2.0-12.0); NEUTROPHILS # (AUTO) 14.4 /CMM (1.8-8.9); NEUTROPHILS % (AUTO) 65.7 % (43.0-81.0); PLATELET COUNT (AUTO) 297 /CMM (150-450); WHITE BLOOD COUNT (AUTO) 21.9 K/uL (4.3-11.0)
[2019-06-17 22:45] LABS: RED BLOOD CELL COUNT(AUTO) 1.87 MIL/uL (4.5-6.0)
[2019-06-17 22:46] LABS: HEMATOCRIT 19 % (39-51)
[2019-06-17 23:05] LABS: EOSINOPHILS % (MANUAL) 3 % (0-4); LYMPHOCYTES % (MANUAL) 21 % (16-48); MONOCYTES % (MANUAL) 20 % (0-11.0); NEUTROPHILS % (MANUAL) 56 (42-76)
[2019-06-17 23:23] LABS: CALCIUM, SERUM 8.5 mg/dL (8.5-10.1); POTASSIUM 4.8 mmol/L (3.5-5.1)
[2019-06-17 23:30] LABS: ALBUMIN 1.6 g/dL (3.4-5.0); BILIRUBIN,DIRECT 0.2 mg/dL (0.0-0.2); BILIRUBIN,TOTAL 0.3 mg/dL (0.2-1.0); TOTAL PROTEIN, SERUM 9.1 g/dL (6.4-8.2)
[2019-06-18] MEDS ORDERED: IV NS 0.9% 1,000 ML IV PRN (01:20)
[2019-06-18 01:30] VITALS: BP 125/79
[2019-06-18] MEDS ORDERED: ACETAMINOPHEN 325 MG TABLET PO PRN (01:30)
[2019-06-18] MEDS ORDERED: ONDANSETRON HCL/PF 4 MG/2 ML VIAL IVP PRN (01:30)
[2019-06-18] MEDS ORDERED: HYDROCODONE/APAP 5/325MG 1 EACH TABLET PO PRN (01:30)
[2019-06-18] MEDS ORDERED: MORPHINE SULFATE INJ 2 MG/ML DISP.SYRIN IV PRN (01:30)
[2019-06-18] MEDS ORDERED: Z GUARD REMEDY 2 OZ OINT TP PRN (01:30)
--- NOTE | 2019-06-18 01:30 | NUR ---
SIGNS AND DISPLAYS SALESPERSON NOTE: RECEIVED REPORT FROM ED NURSE, PT CAME TP FLOOR AT 0130. PT NON VERBAL VENT TRACH. TOLERATING SETTING ORDERED. ON TRIAGE CLINICIAN SR. HOB ELEVATED. L FA #20G WITH PRBC INFUSING, STARTED IN ED. PEG TUBE IN PLACE AND CLAMPED . NEPHROSTOMY TUBE IN PLACE DRAINING CLEAR YELLOW URINE . PARK IN PLACE WITH BLOODY URINE. RESPIRATION EVEN AND UNLABORED SATURATING 100%. BED ALARMED AND LOCKED AT ALL TIMES. CALL LIGHT WITHIN REACH. PIC TAKEN OF WOUNDS. WILL CONT TO MONITOR.
[2019-06-18] MEDS: IPRATROPIUM NEB FS 0.5 MG/2.5 ML AMPUL.NEB IH SCH ×4 (01:52→19:29)
[2019-06-18] MEDS: ALBUTEROL FS 2.5 MG/3 ML VIAL.NEB IH SCH ×4 (01:52→19:30)
--- NOTE | 2019-06-18 02:29 | NUR ---
rn notes transfusion of 1 unit PRBC ENDED AT 023
--- NOTE | 2019-06-18 03:44 | NUR ---
RT Pt trach remains on [facility] vent t/o the night. trach secure and patent. No resp distress noted. Addendum: 06/18/19 at 0345 by LIEN PIKE RT Amended: Links added.
[2019-06-18 04:00] VITALS: BP 117/63
--- NOTE | 2019-06-18 06:57 | NUR ---
RN CLOSING NOTES NO SIGNIFICANT CHANGE IN PTS CONDITION OVER NIGHT.
--- NOTE | 2019-06-18 07:30 | NUR ---
MEDICAL ASSISTING PROGRAM DIRECTOR AM NOTES RECEIVED PATIENT IN BED. OPENS EYES, OBTUNDED. WITH PORTEX 8 TRACH TO MECHANICAL VENT WITH SETTINGS ORDERED, TOLERATING WELL. NO SOB AND ACUTE DISTRESS NOTED. SATURATING 100%. SINUS TACH HR 103 WITH NS AT 75 ML/HR TO LFA G20, SITE CLEAR, RIGHT NEPHROSTOMY NOTED WITH CLEAR DRAINAGE. PARK CATH NOTED WITH BLOODY URINE OUTPUT. GTUBE CLAMPED AT THIS TIME. 0 RESIDUAL NOTED, FLUSHING AND PATENT. SAFETY MEASURES IN PLACE; BED IS IN LOCKED AND LOW POSITION, CALL LIGHT WITHIN REACH, SIDE RAILS UP X2 AND PADDED. WILL CONT TO MONITOR PT.
[2019-06-18 08:00] VITALS: BP 108/65
[2019-06-18 08:20] LABS: BASOPHILS # (AUTO) 0.1 /CMM (0.0-0.2); BASOPHILS % (AUTO) 0.3 % (0.0-2.0); EOSINOPHILS % (AUTO) 1.2 % (0.0-6.0); HEMATOCRIT 23 % (39-51); HEMOGLOBIN 7.6 g/dL (13.5-17.5); LYMPHOCYTES # (AUTO) 5.5 /CMM (0.8-4.8); LYMPHOCYTES % (AUTO) 22.8 % (20.0-44.0); MEAN CORPUSCULAR HGB CONC 32 g/dl (31.0-36.0); MEAN CORPUSCULAR VOLUME 98 fL (80-96); MONOCYTES # (AUTO) 2.2 /CMM (0.1-1.30); MONOCYTES % (AUTO) 9.3 % (2.0-12.0); NEUTROPHILS % (AUTO) 66.4 % (43.0-81.0); PLATELET COUNT (AUTO) 313 /CMM (150-450); RED BLOOD CELL COUNT(AUTO) 2.39 MIL/uL (4.5-6.0); WHITE BLOOD COUNT (AUTO) 24.1 K/uL (4.3-11.0)
[2019-06-18 08:29] LABS: CREATININE 2.5 mg/dL (0.6-1.3); POTASSIUM 4.3 mmol/L (3.5-5.1)
[2019-06-18] MEDS ORDERED: DEXTROSE 50%-WATER 50 ML DISP.SYRIN IV PRN (09:00)
[2019-06-18] MEDS ORDERED: PANTOPRAZOLE 40 MG/PACK PACK GT SCH (09:00)
[2019-06-18] MEDS: CALCIUM CARBONATE (1250) 500 MG TABLET GT SCH (09:29)
[2019-06-18] MEDS: GLUCERNA 1.2 1,000 ML BOTTLE NG PRN (09:29)
--- NOTE | 2019-06-18 09:30 | NUR ---
GERALDINE RN NOTES DUE MEDS GIVEN
[2019-06-18] MEDS: ESOMEPRAZOLE MAGNESIUM 40 MG SUSPDR.PKT GT SCH ×2 (10:17→21:21)
[2019-06-18] MEDS: VALPROIC ACID 250 MG/5 ML UDC GT SCH ×2 (11:45→21:21)
[2019-06-18] MEDS: IV D5/0.45 NACL 1,000 ML IV SCH (11:54)
[2019-06-18] MEDS: BLOOD SUGAR DIAGNOSTIC 1 EACH STRIP IN SCH ×3 (11:55→23:03)
--- NOTE | 2019-06-18 11:55 | NUR ---
GERALDINE RN NOTES ACCUCHECK - BS 110 MG/DL, NO INSULIN COVERAGE GIVEN
[2019-06-18 12:00] VITALS: BP_SYST 102; BP_SYST 95; BP_DIAS 57; BP_DIAS 61
[2019-06-18] MEDS: CEFTRIAXONE 1 G in IV D5W 50 ML IV SCH (15:18)
[2019-06-18 16:00] VITALS: BP 102/61
--- NOTE | 2019-06-18 17:00 | NUR ---
GERALDINE RN NOTES ACCUCHECK - BS 130 MG/DL, NO INSULIN COVERAGE GIVEN
--- NOTE | 2019-06-18 19:14 | NUR ---
GERALDINE RN CLOSING NOTES PATIENT IN BED. OPENS EYES, OBTUNDED. WITH PORTEX 8 TRACH TO MECHANICAL VENT WITH SETTINGS ORDERED, TOLERATING WELL. NO SOB AND ACUTE DISTRESS NOTED. SATURATING 100%. REMAINS SINUS TACH HR 100s WITH D5 1/2NS AT 75 ML/HR TO LFA G20, SITE CLEAR, RIGHT NEPHROSTOMY NOTED WITH CLEAR DRAINAGE, 550 ML OUTPUT, PARK CATH NOTED WITH BLOODY URINE OUTPUT, 350 ML. GTUBE WITH ONGOING GLUCERNA AT 55 ML/HR, 0 RESIDUAL NOTED, FLUSHING AND PATENT. SAFETY MEASURES IN PLACE; BED IS IN LOCKED AND LOW POSITION, CALL LIGHT WITHIN REACH, SIDE RAILS UP X2 AND PADDED. PM CARE AND PRESCRIBED WOUND CARE DONE EARLIER. TURNED AND REPOSITIONQ 2 HOURS. HOB UP. ALL NEEDS MET. NO OTHER SIGNIFICANT CHANGE IN CONDITION. WILLENDORSE TO NEXT SHIFT FOR LIZETH.
[2019-06-18 20:00] VITALS: BP 107/65
--- NOTE | 2019-06-18 20:48 | NUR ---
TD RN NOTES RECEIVED PT ON BED. NON VERBAL. ON TELE MONITOR ST 112. NEPH TUBE DRAINING YELLOW URINE, AND PARK CATH DRAINING BLOODY URINE. ON GTUBE FEEDING NO RESIDUAL NOTED. IV ACCESS ON LFA G20 D51/2NS @75CC/HR PATENT AND INTACT. HEAD OF BED ELEVATED. SIDE RAILS UP. CALL LIGHT WITHIN REACH. BED ALARM ON. WILL CONTINUE TO MONITOR PT CLOSELY.
[2019-06-18] MEDS ORDERED: INSULIN GLARGINE,BASAGLAR 100 UNIT/ML INSULN.PEN SQ SCH (22:00)
[2019-06-18] MEDS: TAMSULOSIN 0.4 MG CAP.SR.24H GT SCH (23:02)
--- NOTE | 2019-06-18 23:04 | NUR ---
TD RN NOTES HOLDING G TUBE FEEDING RESIDUAL OF 210ML. LONG ACTING INSULIN NOT GIVEN AND NO COVERAGE GIVEN. WILL RECHECK BLOOD SUGAR IN 0600.
[2019-06-18] MEDS ORDERED: INSULIN GLARGINE, 100 UNIT/ML CARTRIDGE SQ ONE (23:23)
[2019-06-19] VITALS (11 sets, daily range): BP systolic 101–133; BP diastolic 63–83
[2019-06-19] MEDS: IV D5/0.45 NACL 1,000 ML IV SCH ×3 (00:29→15:02)
[2019-06-19] MEDS: IPRATROPIUM NEB FS 0.5 MG/2.5 ML AMPUL.NEB IH SCH ×4 (02:21→20:06)
[2019-06-19] MEDS: ALBUTEROL FS 2.5 MG/3 ML VIAL.NEB IH SCH ×4 (02:21→20:06)
[2019-06-19 02:57] LABS: APPEARANCE,URINE Clear (CLEAR); BILIRUBIN,URINE Negative (NEGATIVE); BLOOD, URINE Moderate Ery/uL (NEGATIVE); COLOR,URINE Yellow (YELLOW); KETONES,URINE Negative (NEGATIVE); LEUKOCYTE ESTERASE ,URINE Small (NEGATIVE); NITRITE, URINE Negative (NEGATIVE); PH,URINE 6.5 (5.0-8.0); PROTEIN,URINE 100 mg/dl (NEGATIVE); UGLUCOSE Negative (NEGATIVE)
[2019-06-19 03:17] LABS: BACTERIA,URINE Few /HPF (None Seen); RBC,URINE TOO NUMEROUS TO COUN /HPF (0-2); SQUAMOUS EPITHELIAL CELL,UR Rare /HPF (None Seen); WBC,URINE 51-80 /HPF (0-3); YEAST,URINE Many /HPF (None Seen)
[2019-06-19] MEDS: BLOOD SUGAR DIAGNOSTIC 1 EACH STRIP IN SCH ×3 (05:21→17:48)
[2019-06-19 06:23] LABS: BASOPHILS % (AUTO) 0.1 % (0.0-2.0); EOSINOPHILS % (AUTO) 2.9 % (0.0-6.0); HEMATOCRIT 21 % (39-51); LYMPHOCYTES # (AUTO) 3.2 /CMM (0.8-4.8); LYMPHOCYTES % (AUTO) 19.1 % (20.0-44.0); MEAN CORPUSCULAR HGB CONC 33 g/dl (31.0-36.0); MEAN CORPUSCULAR VOLUME 97 fL (80-96); MONOCYTES # (AUTO) 1.4 /CMM (0.1-1.30); MONOCYTES % (AUTO) 8.4 % (2.0-12.0); NEUTROPHILS # (AUTO) 11.7 /CMM (1.8-8.9); NEUTROPHILS % (AUTO) 69.5 % (43.0-81.0); PLATELET COUNT (AUTO) 297 /CMM (150-450); WHITE BLOOD COUNT (AUTO) 16.9 K/uL (4.3-11.0)
--- NOTE | 2019-06-19 06:35 | NUR ---
TD RN NOTES NO ACUTE CHANGES NOTED DURING THE SHIFT. PROVIDED COMFORT AND SAFETY. WILL ENDORSE TO THE AM NURSE FOR CONTINUITY OF CARE.
[2019-06-19 06:51] LABS: THYROID STIMULATING HORMONE 2.165 uIU/mL (0.358-3.74)
[2019-06-19 06:53] LABS: CALCIUM, SERUM 8.8 mg/dL (8.5-10.1); CREATININE 1.9 mg/dL (0.6-1.3); MAGNESIUM 2.2 mg/dL (1.8-2.4); PHOSPHORUS 3.2 mg/dL (2.5-4.9)
[2019-06-19 06:57] LABS: HEMOGLOBIN 6.7 g/dL (13.5-17.5)
--- NOTE | 2019-06-19 07:22 | NUR ---
TD RN NOTES INFORMED EPIC DIRECTOR ORACLE RETAIL OF HGB OF 6.7 AWAITING CALL BACK. ENDORSED TO THE AM NURSE.
--- NOTE | 2019-06-19 08:00 | NUR ---
albino rn notes contacted dr de los santos thru [facility] to report hgb 6.7 hct 21. lab critical was called in to darek feng nurse. per dr de los santos, give 2 units prbc's.
[2019-06-19 08:16] LABS: BAND % (MANUAL) 1 % (0.0-5.0); EOSINOPHILS % (MANUAL) 3 % (0-4); LYMPHOCYTES % (MANUAL) 23 % (16-48); MONOCYTES % (MANUAL) 6 % (0-11.0); NEUTROPHILS % (MANUAL) 67 (42-76)
[2019-06-19] MEDS: CALCIUM CARBONATE (1250) 500 MG TABLET GT SCH (08:17)
[2019-06-19] MEDS: VALPROIC ACID 250 MG/5 ML UDC GT SCH ×2 (08:17→20:34)
[2019-06-19] MEDS: ESOMEPRAZOLE MAGNESIUM 40 MG SUSPDR.PKT GT SCH ×2 (08:17→20:33)
--- NOTE | 2019-06-19 09:00 | NUR ---
albino rn notes notified dr de los santos that i couldnt reach family member on facesheet for consent. dr de los santos said she will sign off as emergency transfusion.
--- NOTE | 2019-06-19 09:47 | NUR ---
WOUND CARE CONSULT: PT PRESENTS WITH UNSTAGEABLE OCCIPITAL ULCER AND LOWER EXTREMITY WOUNDS, SACRAL SCARRING, PRESENT ON ADMISSION. DEFER TO DPM FOR LOWER EXTREMITY WOUND TREATMENT PLAN. RECOMMEND SURGICAL CONSULT FOR OCCIPITAL WOUND. DR JENNA ONOFRE NOTIFIED OF CONSULT REQUEST. ALL SKIN PROTECTION RECOMMENDATIONS DISCUSSED WITH NURSING STAFF. PT NOTED TO HAVE NEPHROSTOMY TUBE WITH SMALL AMOUNT OF STRIKETHROUGH DRAINAGE ON DRESSING. DEFER TO MD/NEPHRO FOR NEPHROSTOMY TUBE. WILL SEE PRN. IN AGREEMENT WITH PLAN OF CARE. PT ON WES ISOFLEX LOW AIRLOSS BED. Addendum: 06/19/19 at 0949 by VANESSA CONTRERAS WNDNU Amended: Links added.
[2019-06-19] MEDS ORDERED: HYDROGEL DRESSING 90 GM TUBE TP PRN (10:00)
[2019-06-19] MEDS: HYDROGEL DRESSING 90 GM TUBE TP SCH (13:57)
--- NOTE | 2019-06-19 14:23 | NUR ---
RT NOTE RECEIVED PT MECHANICALLY VENTILATED VIA CUFFED TRACHEOSTOMY TUBE. CUFF INFLATED. TRACH TUBE MIDLINE AND SECURE. VENTILATOR SETTINGS PRESCRIBED. ALARMS SET PER PROTOCOL AND AUDIBLE. VENT PLUGGED IN TO RED OUTLET. AMBU BAG AT BED SIDE. NO DISTRESS NOTED. Addendum: 06/19/19 at 1423 by NAKITA JIMENEZ RT Amended: Links added.
[2019-06-19] MEDS: CEFTRIAXONE 1 G in IV D5W 50 ML IV SCH (15:08)
[2019-06-19 16:16] LABS: HEMOGLOBIN 8.1 g/dL (13.5-17.5)
--- NOTE | 2019-06-19 17:40 | NUR ---
telephone information clerk notes reminded dr de los santos by text to sign blood transfusion consent form.
--- NOTE | 2019-06-19 19:20 | NUR ---
STEM SETTER NOTE PATIENT IN BED NON VERBAL AWAKE, DOES NOT FOLLOW COMMANDS DOES NOT TRACK WITH EYES, EYES IN FIXED POSITION REACTIVE TO LIGHT. PATIENT IN BED CONTRACTED. PATIENT ON VENT TOLERATING RX SETTINGS NO S/S OF RESP DISTRESS. PATIENT ON MONITOR ST HR IN 115. NEPHROSTOMY TUBE AND PARK DRAINING TO GRAVITY. PARK PINK TINGED URINE. PATIETN S/P BLOOD TRANSFUSION NO S/S REACTION. WILL CONTINUE TO MONITOR FOR CHANGES.
--- NOTE | 2019-06-19 19:21 | NUR ---
television director notes pt stable; stable vs. safety measures maintained. pt tolerated blood transfusion with no reaction. endorsed to pm nurse for nasir.
--- NOTE | 2019-06-19 20:14 | NUR ---
RT NOTE PATIENT RECEIVED TRACHED ON MECHANICAL VENTILATION. PT AWAKE/NONVERBAL. PORTEX [address] AMBU BAG/BACK UP TRACH @ BEDSIDE. VENT PLUGGED TO RED OUTLET. ALARMS ON AND AUDIBLE. TX GIVEN, NO ADVERSE REACTIONS NOTED. SX DONE, TRACH SECURED AND PATENT. NO SOB NOTED. CONT. PULSE OX CONNECTED. WILL MONITOR T/O SHIFT. Addendum: 06/19/19 at 2016 by AIDEE THOMPSON RT Amended: Links added.
[2019-06-19] MEDS ORDERED: INSULIN GLARGINE, 100 UNIT/ML CARTRIDGE SQ SCH (22:00)
[2019-06-19] MEDS: TAMSULOSIN 0.4 MG CAP.SR.24H GT SCH (22:40)
[2019-06-19] MEDS: INSULIN GLARGINE, 100 UNIT/ML CARTRIDGE SQ SCH (22:42)
[2019-06-19] MEDS ORDERED: INSULIN REGULAR, HUMAN 100 UNIT/ML 10 ML VIAL ONE (23:44)
[2019-06-20] VITALS: BP 103/67
[2019-06-20] MEDS: BLOOD SUGAR DIAGNOSTIC 1 EACH STRIP IN SCH ×4 (00:04→17:23)
[2019-06-20] MEDS: IPRATROPIUM NEB FS 0.5 MG/2.5 ML AMPUL.NEB IH SCH ×4 (01:08→19:31)
[2019-06-20] MEDS: ALBUTEROL FS 2.5 MG/3 ML VIAL.NEB IH SCH ×4 (01:08→19:31)
[2019-06-20] MEDS: GLUCERNA 1.2 1,000 ML BOTTLE NG PRN ×2 (01:35→22:01)
[2019-06-20 04:00] VITALS: BP 120/73
[2019-06-20 06:31] LABS: BASOPHILS % (AUTO) 0.4 % (0.0-2.0); EOSINOPHILS % (AUTO) 4.3 % (0.0-6.0); HEMATOCRIT 30 % (39-51); HEMOGLOBIN 9.6 g/dL (13.5-17.5); LYMPHOCYTES # (AUTO) 2.3 /CMM (0.8-4.8); LYMPHOCYTES % (AUTO) 22.8 % (20.0-44.0); MEAN CORPUSCULAR HGB CONC 32 g/dl (31.0-36.0); MEAN CORPUSCULAR VOLUME 96 fL (80-96); MONOCYTES # (AUTO) 0.9 /CMM (0.1-1.30); MONOCYTES % (AUTO) 8.9 % (2.0-12.0); NEUTROPHILS # (AUTO) 6.4 /CMM (1.8-8.9); NEUTROPHILS % (AUTO) 63.6 % (43.0-81.0); PLATELET COUNT (AUTO) 271 /CMM (150-450); RED BLOOD CELL COUNT(AUTO) 3.09 MIL/uL (4.5-6.0)
[2019-06-20 06:41] LABS: CREATININE 1.5 mg/dL (0.6-1.3); MAGNESIUM 1.9 mg/dL (1.8-2.4); PHOSPHORUS 3.3 mg/dL (2.5-4.9); POTASSIUM 4.2 mmol/L (3.5-5.1)
--- NOTE | 2019-06-20 07:08 | NUR ---
CARPENTER FORM OPENING RECEIVED PATIENT WITH [facility] NO RESPIRATORY DISTRESS NOTED. ATTACHED TO PULSE OX, ALARM AUDIBLE. ATTACHED TO TELE MONITOR, SINUS RHYTHM HR 91. EMERGENCY + SUCTION EQUIPMENT AT BEDSIDE. PARK CATHETER DRAINING BLOOD URINE, MD AWARE. NEPHROSTOMY TRAINING YELLOW URINE. GTF RUNNING @50mL/HR, NO RESIDUAL NOTED. L FA 20G RUNNING D5 1/2 NS @75mL/HR. ASPIRATION PRECAUTIONS MAINTAINED. PATIENT UNABLE TO MAKE NEEDS KNOWN, WILL CONT TO MONITOR
[2019-06-20 08:00] VITALS: BP 130/77
[2019-06-20] MEDS: ESOMEPRAZOLE MAGNESIUM 40 MG SUSPDR.PKT GT SCH ×2 (08:36→21:38)
[2019-06-20] MEDS: CALCIUM CARBONATE (1250) 500 MG TABLET GT SCH (08:36)
[2019-06-20] MEDS: VALPROIC ACID 250 MG/5 ML UDC GT SCH ×2 (08:36→21:37)
[2019-06-20] MEDS: HYDROGEL DRESSING 90 GM TUBE TP SCH (08:37)
[2019-06-20] MEDS: IV D5/0.45 NACL 1,000 ML IV SCH ×2 (08:37→17:23)
[2019-06-20 12:00] VITALS: BP 124/73
[2019-06-20] MEDS: CEFTRIAXONE 1 G in IV D5W 50 ML IV SCH (15:26)
[2019-06-20 16:00] VITALS: BP 135/81
--- NOTE | 2019-06-20 17:23 | NUR ---
RT END OF THE SHIFT REPORT, PT. 59 Y OLD MALE PT. RECEIVED @ 0700 AM TRACH'D PORTEX#8 ON [facility]. VENT WITH NOTED AC MODE. NO VENT CHANGES DONE T/O DAY, TX'S Q6 GIVEN INLINE PT. REMAIN STABLE. PT SUX'D MINIMAL VALLES SECRETIONS. B/S RHONCHI/RALES BILATERALLY, EQUAL CHEST RISE NOTED. VENT IS PLUGGED INTO RED OUTLET. ALARMS ARE SET AND FUNCTIONAL. HME CHANGED, AMBU BAG AT BEDSIDE. TRACH CARE DONE, INNER CANNULA CHANGED. WILL CONTINUE TO MONITOR. REPORT WILL PASS TO PM SHIFT. Addendum: 06/20/19 at 1725 by GEN MTZ RT Amended: Links added.
--- NOTE | 2019-06-20 18:28 | NUR ---
GUN STOCK MAKER CLOSING NO SIGNIFICANT CHANGES NOTED THROUGHOUT SHIFT. NO RESIDUALS, INCREASED GTF RATE 60mL/HR. MEDICATIONS GIVEN AND WOUND CARE COMPLETED. NO SEIZURES. NO INSULIN GIVEN THIS SHIFT. SUNCTIONED PRN. NO BOWEL MOVEMENT, WILL ENDORSE STOOL OB TO NOC RN.
--- NOTE | 2019-06-20 19:33 | NUR ---
RT PT RECEIVED ON VENT VIA TRACH. NO RESP DISTRESS NOTED. PT RECEIVING SCHEDULED ALBUTEROL AND ATROVENT TX. Addendum: 06/20/19 at 1935 by VERNA MARQUEZ RT Amended: Links added.
[2019-06-20 20:00] VITALS: BP 134/77
[2019-06-20] MEDS: TAMSULOSIN 0.4 MG CAP.SR.24H GT SCH (21:37)
[2019-06-20] MEDS: INSULIN GLARGINE, 100 UNIT/ML CARTRIDGE SQ SCH (22:00)
[2019-06-20] MEDS ORDERED: INSULIN GLARGINE, 100 UNIT/ML CARTRIDGE SQ ONE (23:34)
[2019-06-21] VITALS: BP 109/63
[2019-06-21] MEDS: BLOOD SUGAR DIAGNOSTIC 1 EACH STRIP IN SCH ×5 (00:23→23:02)
[2019-06-21] MEDS: INSULIN REGULAR, HUMAN 100 UNIT/ML 3 ML VIAL SQ PRN ×2 (00:25→06:29)
[2019-06-21] MEDS: ALBUTEROL FS 2.5 MG/3 ML VIAL.NEB IH SCH ×4 (01:57→19:39)
[2019-06-21] MEDS: IPRATROPIUM NEB FS 0.5 MG/2.5 ML AMPUL.NEB IH SCH ×4 (01:57→19:39)
[2019-06-21] MEDS: IV D5/0.45 NACL 1,000 ML IV SCH (03:31)
[2019-06-21 04:52] VITALS: BP 116/67
[2019-06-21 06:28] LABS: BASOPHILS # (AUTO) 0.1 /CMM (0.0-0.2); BASOPHILS % (AUTO) 0.5 % (0.0-2.0); EOSINOPHILS % (AUTO) 3.9 % (0.0-6.0); HEMATOCRIT 25 % (39-51); HEMOGLOBIN 8.4 g/dL (13.5-17.5); LYMPHOCYTES # (AUTO) 3.1 /CMM (0.8-4.8); LYMPHOCYTES % (AUTO) 30.8 % (20.0-44.0); MEAN CORPUSCULAR HGB CONC 33 g/dl (31.0-36.0); MEAN CORPUSCULAR VOLUME 95 fL (80-96); MONOCYTES # (AUTO) 1.2 /CMM (0.1-1.30); NEUTROPHILS # (AUTO) 5.3 /CMM (1.8-8.9); NEUTROPHILS % (AUTO) 52.8 % (43.0-81.0); PLATELET COUNT (AUTO) 313 /CMM (150-450); RED BLOOD CELL COUNT(AUTO) 2.69 MIL/uL (4.5-6.0)
--- NOTE | 2019-06-21 06:38 | NUR ---
END OF SHIFT REPORT Patient in bed, obtunded, eyes open. Trach intact, vent settings remained the same. Sinus Tach in the Tele monitor. Gtube feeding @ 65ml/hr Goal rate tolerating well, maintained upright position. IV abx as scheduled, IVF infusing. Locke to gravity, right nephrostomy tube intact. Reposition schedule as followed. Plan Debridement posterior scalp wound, follow up consent from daughter for the procedure. Will endorse to oncoming RN.
[2019-06-21 06:48] LABS: BILIRUBIN,TOTAL 0.2 mg/dL (0.2-1.0); CALCIUM, SERUM 8.9 mg/dL (8.5-10.1); CREATININE 1.5 mg/dL (0.6-1.3); MAGNESIUM 1.5 mg/dL (1.8-2.4); PHOSPHORUS 2.5 mg/dL (2.5-4.9); POTASSIUM 4.2 mmol/L (3.5-5.1); TOTAL PROTEIN, SERUM 8.9 g/dL (6.4-8.2)
--- NOTE | 2019-06-21 07:27 | NUR ---
RN OPENING NOTES RECEIVED PATIENT RESTING IN BED COMFORTABLY, SHOWS NO S/SX OF OF DISCOMFORT OR SOB. HE IS AOX0, OBTUNDED, BEDBOUND. TOLERATING VENT SETTINGS WELL, SMALL AMOUNTS OF SECRETION. R NEPHROSTOMY TUBE IS INTACT AND PATENT. PARK CATHETER IS INTACT AND PATENT, HEMATURIA IS PRESENT BUT IS CLEANING UP. PT IS RECEIVING GLUCERNA AT 65 ML/HR, TOLERATING WELL, NO RESIDUAL. D5 1/2 NS IS INFUSING AT 100ML/HR. WOUND ON POSTERIOR SCALP IS TO BE DEBRIDED TODAY. SAFETY MEASURES HAVE BEEN IMPLEMENTED, CALL LIGHT IS WITHIN REACH, BED IS IN LOWEST AND LOCKED POSITION, WILL CONTINUE TO MONITOR FOR ANY CHANGES.
[2019-06-21 07:54] LABS: ALBUMIN 1.4 g/dL (3.4-5.0)
[2019-06-21 08:00] VITALS: BP 143/83
--- NOTE | 2019-06-21 08:10 | NUR ---
I TRIED CONTACTING PT FAMILY TO OBTAIN CONSENT FOR DEBRIDEMENT, UNABLE TO REACH THEM. WILL TRY AGAIN LATER
[2019-06-21] MEDS: ESOMEPRAZOLE MAGNESIUM 40 MG SUSPDR.PKT GT SCH ×2 (08:56→21:05)
[2019-06-21] MEDS: VALPROIC ACID 250 MG/5 ML UDC GT SCH ×2 (08:57→21:05)
[2019-06-21] MEDS: CALCIUM CARBONATE (1250) 500 MG TABLET GT SCH (08:57)
[2019-06-21] MEDS ORDERED: IV D5/0.45 NACL 1,000 ML IV PRN (09:00)
[2019-06-21] MEDS: HYDROGEL DRESSING 90 GM TUBE TP SCH (09:01)
[2019-06-21] MEDS ORDERED: Magnesium 1GM/D5W 100ML PREMIX 100 ML IV SCH (09:38)
[2019-06-21 12:00] VITALS: BP 121/72
[2019-06-21] MEDS: LEVOFLOXACIN 750 MG /D5W 150ML 750 MG in PREMIX 1 EA IV SCH (12:28)
--- NOTE | 2019-06-21 14:30 | NUR ---
DRESSING ON OCCIPITAL WOUND HAS BEEN CHANGED
--- NOTE | 2019-06-21 15:46 | NUR ---
DR SIERRA MADE AWARE OF LOW ALBUMIN AND DROP IN H&H. NO NEW ORDERS AT THIS TIME, WILL CONTINUE TO MONITOR FOR ANY CHANGES
[2019-06-21 16:00] VITALS: BP 113/79
[2019-06-21] MEDS: GLUCERNA 1.2 1,000 ML BOTTLE NG PRN (17:29)
--- NOTE | 2019-06-21 18:25 | NUR ---
RT END OF THE SHIFT REPORT, PT. 59 Y OLD MALE PT. RECEIVED @ 0700 AM TRACH'D PORTEX#8 ON [facility]. VENT WITH NOTED AC MODE. NO VENT CHANGES DONE T/O DAY, TX'S Q6 GIVEN INLINE PT. REMAIN STABLE. PT SUX'D MINIMAL VALLES SECRETIONS. B/S RHONCHI/RALES BILATERALLY, EQUAL CHEST RISE NOTED. VENT IS PLUGGED INTO RED OUTLET. ALARMS ARE SET AND FUNCTIONAL. HME CHANGED, AMBU BAG AT BEDSIDE. TRACH CARE DONE, INNER CANNULA CHANGED. WILL CONTINUE TO MONITOR. REPORT WILL PASS TO PM SHIFT. Addendum: 06/21/19 at 1826 by GNE MTZ RT Amended: Links added.
--- NOTE | 2019-06-21 19:07 | NUR ---
RN CLOSING NOTES PATIENT IS RESTING COMFORTABLY IN BED, SHOWS NO S/SX OF RESP DISTRESS OR SOB. HE IS NOT ALERT AND BED BOUND. DRESSING ON POSTERIOR HEAD HAS BEEN CHANGED. PT WAS TURNED ROUTINELY. MD WAS NOTIFIED OF ABNORMAL LABS. NO ACUTE CHANGES OCCURRED THROUGHOUT THE SHIFT, VITAL SIGNS ARE STABLE, PT NEEDS MET. SAFETY MEASURES HAVE BEEN IMPLEMENTED, BED IS IN LOWEST AND LOCKED POSITION, CALL LIGHT IS WITHIN REACH, PT HAS BEEN ENDORSED TO NIGHTSHIFT RN FOR CONTINUITY OF CARE.
--- NOTE | 2019-06-21 19:14 | NUR ---
SOCK MENDER OPENING NOTES RECEIVED PATIENT RESTING IN BED, OBTUNDED. ON MECHANICAL VENT TRACH SETTINGS ORDERED, SATURATING 99% AT THE MOMENT, RR EVEN AND UNLABORED. ON TELE MONITOR SINUS TACHY WITH HR 110. NO S/S OF RESPIRATORY OR CARDIAC DISTRESS NOTED. RIGHT NEPHROSTOMY TUBE NOTED, SITE C/D/I. PARK CATHETER OFF THE FLOOR, HEMATURIA NOTED. ON GTUBE FEEDING RUNNING AT 55ML/HR, 60ML RESIDUAL NOTED, WILL CONT TO MONITOR CLOSELY. IV SITE RIGHT FA 20G, FLUSHING AND PATENT, SITE C/D/I, S/L. CONSENT FOR WOUND DEBRIDEMENT FOR POSTERIOR SCALP NOT SIGNED; WILL TRY TO CALL FAMILY AGAIN FOR CONSENT. SAFETY MEASURES IN PLACE; CALL LIGHT WITHIN REACH, BED LOCKED AND IN LOW POSITION, WILL CONTINUE TO MONITOR PT.
[2019-06-21 20:00] VITALS: BP 131/91
--- NOTE | 2019-06-21 20:03 | NUR ---
ELEMENTARY SCHOOL SCIENCE TEACHER NOTES CALLED PATIENT DAUGHTER ADALBERTO MAIN TWICE ([phone] AND [phone]) TO OBTAIN CONSENT FOR WOUND DEBRIDEMENT, UNABLE TO REACH. LEFT VOICE MESSAGE AND CALL BACK NUMBER. WILL TRY AGAIN LATER.
[2019-06-21] MEDS: TAMSULOSIN 0.4 MG CAP.SR.24H GT SCH (21:05)
--- NOTE | 2019-06-21 23:00 | NUR ---
MACHINE LOADER NOTES UNABLE TO SCAN PATIENT LANTUS. MANUAL BARCODE DONE INSTEAD. WILL CONT TO MONITOR PT.
[2019-06-21] MEDS: INSULIN GLARGINE, 100 UNIT/ML CARTRIDGE SQ SCH (23:07)
[2019-06-22] VITALS: BP 121/87
[2019-06-22] MEDS: ALBUTEROL FS 2.5 MG/3 ML VIAL.NEB IH SCH ×4 (01:04→19:50)
[2019-06-22] MEDS: IPRATROPIUM NEB FS 0.5 MG/2.5 ML AMPUL.NEB IH SCH ×4 (01:04→19:50)
[2019-06-22 04:00] VITALS: BP 120/81
[2019-06-22] MEDS: BLOOD SUGAR DIAGNOSTIC 1 EACH STRIP IN SCH ×4 (05:33→23:10)
[2019-06-22 06:21] LABS: CALCIUM, SERUM 9.2 mg/dL (8.5-10.1); CREATININE 1.5 mg/dL (0.6-1.3); MAGNESIUM 1.8 mg/dL (1.8-2.4); POTASSIUM 4.9 mmol/L (3.5-5.1)
[2019-06-22 06:23] LABS: BASOPHILS % (AUTO) 0.3 % (0.0-2.0); HEMATOCRIT 25 % (39-51); HEMOGLOBIN 8.1 g/dL (13.5-17.5); LYMPHOCYTES # (AUTO) 3.8 /CMM (0.8-4.8); LYMPHOCYTES % (AUTO) 29.4 % (20.0-44.0); MEAN CORPUSCULAR HGB CONC 33 g/dl (31.0-36.0); MEAN CORPUSCULAR VOLUME 95 fL (80-96); MONOCYTES # (AUTO) 1.8 /CMM (0.1-1.30); MONOCYTES % (AUTO) 13.9 % (2.0-12.0); NEUTROPHILS # (AUTO) 7.1 /CMM (1.8-8.9); NEUTROPHILS % (AUTO) 54.4 % (43.0-81.0); PLATELET COUNT (AUTO) 368 /CMM (150-450); RED BLOOD CELL COUNT(AUTO) 2.63 MIL/uL (4.5-6.0)
--- NOTE | 2019-06-22 07:00 | NUR ---
JAVA SECURITY ENGINEER CLOSING NOTES PATIENT RESTING IN BED, OBTUNDED. NO ACUTE CHANGES THROUGHOUT SHIFT. ON MECHANICAL VENT TRACH SETTINGS ORDERED, SATURATING 100% AT THE MOMENT, RR EVEN AND UNLABORED. ON TELE MONITOR SINUS TACHY WITH HR 111. NO S/S OF RESPIRATORY OR CARDIAC DISTRESS NOTED. ON GTUBE FEEDING RUNNING AT 55ML/HR, MINIMAL RESIDUAL NOTED. IV SITE RIGHT FA 20G, FLUSHING AND PATENT, SITE C/D/I, S/L. REPOSITIONED PT Q2H. CONSENT FOR WOUND DEBRIDEMENT FOR POSTERIOR SCALP NOT SIGNED; WILL ENDORSE TO AM RN. SAFETY MEASURES IN PLACE; CALL LIGHT WITHIN REACH, BED LOCKED AND IN LOW POSITION, SIDE RAILS UP X2 AND PADDED, HOB ELEVATED AT ALL TIMES. WILL CONTINUE TO MONITOR PT. WILL ENDORSE TO AM RN FOR LIZETH.
[2019-06-22 08:00] VITALS: BP 120/72
--- NOTE | 2019-06-22 08:32 | NUR ---
RT NOTE RECEIVED PT MECHANICALLY VENTILATED VIA PORTEX 8 CUFFED TRACHEOSTOMY TUBE. CUFF INFLATED. TRACH TUBE MIDLINE AND SECURE. VENTILATOR SETTINGS PRESCRIBED. ALARMS SET PER PROTOCOL AND AUDIBLE. VENT PLUGGED IN TO RED OUTLET. AMBU BAG AT BED SIDE. NO DISTRESS NOTED. Addendum: 06/22/19 at 0834 by NAKITA JIMENEZ RT Amended: Links added.
[2019-06-22] MEDS: VALPROIC ACID 250 MG/5 ML UDC GT SCH ×2 (09:28→21:44)
[2019-06-22] MEDS: CALCIUM CARBONATE (1250) 500 MG TABLET GT SCH (09:28)
[2019-06-22] MEDS: ESOMEPRAZOLE MAGNESIUM 40 MG SUSPDR.PKT GT SCH ×2 (09:28→21:44)
[2019-06-22] MEDS: HYDROGEL DRESSING 90 GM TUBE TP SCH (09:30)
[2019-06-22 12:00] VITALS: BP 107/75
[2019-06-22 16:00] VITALS: BP_SYST 105; BP_DIAS 64; BP_DIAS 69
[2019-06-22] MEDS: GLUCERNA 1.2 1,000 ML BOTTLE NG PRN (17:51)
--- NOTE | 2019-06-22 19:30 | NUR ---
BUSINESS PROCESS COORDINATOR OPENING NOTES RECEIVED PATIENT RESTING IN BED, OBTUNDED. ON MECHANICAL VENT TRACH SETTINGS ORDERED, SATURATING 100% AT THE MOMENT. ON TELE MONITOR SINUS TACHY WITH HR 113. NO S/S OF RESPIRATORY OR CARDIAC DISTRESS NOTED. RIGHT NEPHROSTOMY TUBE NOTED, SITE C/D/I. PARK CATHETER OFF THE FLOOR, HEMATURIA NOTED. ON GTUBE FEEDING RUNNING AT 65ML/HR, MINIMAL RESIDUAL NOTED, WILL CONT TO MONITOR CLOSELY. IV SITE RIGHT FA 20G, FLUSHING AND PATENT, SITE C/D/I, S/L. SAFETY MEASURES IN PLACE; CALL LIGHT WITHIN REACH, BED LOCKED AND IN LOW POSITION, SIDE RAILS UP X2. WILL CONTINUE TO MONITOR PT.
--- NOTE | 2019-06-22 19:52 | NUR ---
RT PT RECEIVED ON VENT. NO RESP DISTRESS NOTED. PT RECEIVING SCHEDULED ALBUTEROL AND ATROVENT TX. Addendum: 06/22/19 at 2 by VERNA MARQUEZ RT Amended: Links added.
[2019-06-22 20:00] VITALS: BP 104/69
[2019-06-22] MEDS: TAMSULOSIN 0.4 MG CAP.SR.24H GT SCH (21:44)
[2019-06-22] MEDS: INSULIN GLARGINE, 100 UNIT/ML CARTRIDGE SQ SCH (23:13)
[2019-06-22] MEDS: INSULIN REGULAR, HUMAN 100 UNIT/ML 3 ML VIAL SQ PRN (23:14)
[2019-06-23] VITALS: BP 111/75
[2019-06-23] MEDS: ALBUTEROL FS 2.5 MG/3 ML VIAL.NEB IH SCH ×3 (01:38→12:44)
[2019-06-23] MEDS: IPRATROPIUM NEB FS 0.5 MG/2.5 ML AMPUL.NEB IH SCH ×3 (01:39→12:44)
[2019-06-23 04:00] VITALS: BP 113/65
[2019-06-23] MEDS: BLOOD SUGAR DIAGNOSTIC 1 EACH STRIP IN SCH ×2 (05:50→11:46)
[2019-06-23 06:51] LABS: BASOPHILS % (AUTO) 0.3 % (0.0-2.0); EOSINOPHILS % (AUTO) 2.6 % (0.0-6.0); HEMATOCRIT 25 % (39-51); HEMOGLOBIN 8.2 g/dL (13.5-17.5); LYMPHOCYTES # (AUTO) 3.4 /CMM (0.8-4.8); LYMPHOCYTES % (AUTO) 28.1 % (20.0-44.0); MEAN CORPUSCULAR HGB CONC 33 g/dl (31.0-36.0); MEAN CORPUSCULAR VOLUME 95 fL (80-96); MONOCYTES # (AUTO) 1.5 /CMM (0.1-1.30); MONOCYTES % (AUTO) 12.7 % (2.0-12.0); NEUTROPHILS # (AUTO) 6.8 /CMM (1.8-8.9); NEUTROPHILS % (AUTO) 56.3 % (43.0-81.0); PLATELET COUNT (AUTO) 398 /CMM (150-450); RED BLOOD CELL COUNT(AUTO) 2.64 MIL/uL (4.5-6.0); WHITE BLOOD COUNT (AUTO) 12.1 K/uL (4.3-11.0)
[2019-06-23 06:59] LABS: CALCIUM, SERUM 9.5 mg/dL (8.5-10.1); CREATININE 1.7 mg/dL (0.6-1.3); MAGNESIUM 1.7 mg/dL (1.8-2.4); POTASSIUM 5.1 mmol/L (3.5-5.1)
--- NOTE | 2019-06-23 07:10 | NUR ---
RECRUITING CONSULTANT CLOSING NOTES PATIENT RESTING IN BED, OBTUNDED. NO ACUTE CHANGES THROUGHOUT SHIFT. ON MECHANICAL VENT TRACH SETTINGS ORDERED, SATURATING 100% AT THE MOMENT, RR EVEN AND UNLABORED. ON TELE MONITOR SINUS TACHY WITH HR 105. NO S/S OF RESPIRATORY OR CARDIAC DISTRESS NOTED. ON GTUBE FEEDING RUNNING AT 65ML/HR, MINIMAL RESIDUAL NOTED. IV SITE RIGHT FA 20G, FLUSHING AND PATENT, SITE C/D/I, S/L. REPOSITIONED PT Q2H. SAFETY MEASURES IN PLACE; CALL LIGHT WITHIN REACH, BED LOCKED AND IN LOW POSITION, SIDE RAILS UP X2 AND PADDED, HOB ELEVATED AT ALL TIMES. WILL ENDORSE TO AM RN FOR LIZETH.
--- NOTE | 2019-06-23 07:30 | NUR ---
TELE/RN OPENING NOTES PATIENT IN BED, ABLE TO RESPOND TO TACTILE STIMULI. NO FACIAL GRIMACING OR ACUTE DISTRESS AT THIS TIME. RESPIRATION EVEN AND UNLABORED. SKIN IS DRY WARM TO TOUCH. HOB ELEVATED AT ALL TIMES. GT INTACT AND PATENT. PATIENT NOTED WITH LFA IV ACCESS. INTACT AND PATENT WELL. NO S/S OF INFECTION OR INFILTRATION. NOTED WITH NEPHROSTOMY AND F/C. INTACT AND PATENT WELL. ALL NEEDS ANTICIPATED. CALL LIGHT WITHIN REACHED. SAFETY MAINTAINED. BED LOCKED AND IN LOWEST POSITION. WILL CONTINUE TO MONITOR CLOSELY.
[2019-06-23 08:00] VITALS: BP 112/62
[2019-06-23] MEDS: VALPROIC ACID 250 MG/5 ML UDC GT SCH (08:38)
[2019-06-23] MEDS: HYDROGEL DRESSING 90 GM TUBE TP SCH (08:39)
[2019-06-23] MEDS: ESOMEPRAZOLE MAGNESIUM 40 MG SUSPDR.PKT GT SCH (08:39)
[2019-06-23] MEDS: CALCIUM CARBONATE (1250) 500 MG TABLET GT SCH (08:39)
[2019-06-23] MEDS: LEVOFLOXACIN 750 MG /D5W 150ML 750 MG in PREMIX 1 EA IV SCH (11:48)
[2019-06-23] MEDS ORDERED: Magnesium 1GM/D5W 100ML PREMIX 100 ML IV SCH (11:51)
[2019-06-23 12:00] VITALS: BP 115/70
[2019-06-23] MEDS ORDERED: NUT.237L45 NG (12:45)
--- NOTE | 2019-06-23 12:49 | NUR ---
PT RECEIVED TRACH'D W/ PORTEX#8 ON [facility]. VENT WITH NOTED SETTINGS. VENT IS PLUGGED INTO RED OUTLET. ALARMS ARE SET AND FUNCTIONAL. HME CHANGED, AMBU BAG AT BEDSIDE. EXTRA TRACH AT BEDSIDE. TX'S GIVEN INLINE PT. NO RESP DISTRESS NOTED. PT SX'D TO MOD AMOUNTS OF THICK VALLES SECRETIONS. B/S RHONCHI/RALES BILATERALLY, EQUAL CHEST RISE NOTED. TRACH TUBE SECURE, PATENT, CLEAN AND DRY. TRACH CARE DONE, INNER CANNULA CHANGED. PLAN IS CONTINUE CURRENT CARE AND CONTINUE TO MONITOR FOR CHANGES.
[2019-06-23] MEDS: GLUCERNA 1.2 1,000 ML BOTTLE NG PRN (12:58)
[2019-06-23 16:00] VITALS: BP_SYST 103; BP_SYST 111; BP_DIAS 65
--- NOTE | 2019-06-23 17:20 | NUR ---
TELE/TELEMARKETING SALES REPRESENTATIVE NOTES PATIENT IS GOING TO BE DISCHARGED TO [facility]. 2 EMT AND RT FROM [place] ARRIVED IN THE UNIT. DISCHARGE PAPERS WAS SIGNED AND GIVEN. FINAL SKIN ASSESSMENT AND PHOTOS WAS TAKEN WELL AND WAS PLACED IN THE CHART. REPORT WAS GIVEN WELL AND TO RN IN THE FACILITY. REPORT GIVEN TO COREY RODRIGUEZ. PATIENT WAS THEN TRANSFERRED TO THE [facility]. PATIENT LEFT THE UNIT IN STABLE CONDITION.
[2019-06-24] MEDS ORDERED: INSULIN REGULAR, HUMAN 100 UNIT/ML 3 ML VIAL SQ SCH (06:00)
[2019-06-24] MEDS ORDERED: BLOOD SUGAR DIAGNOSTIC 1 EACH STRIP IN SCH (06:00)
== END 2019-06-23 17:18 | DRG 951 ==
LOC: ER 22:24 → TELE-TD 06-18 00:35 → TELE1 06-19 11:40
PROVIDERS: ADMIT Internal Medicine; ATTEND Internal Medicine
PROC: 0KB00ZZ Excision of Head Muscle, Open Approach (ICD-10-PCS; principal; 2019-06-18)
PROC: 30233N1 Transfusion of Nonautologous Red Blood Cells into Peripheral Vein, Percutaneous Approach (ICD-10-PCS; principal; 2019-06-18)
PROC: 5A1955Z Respiratory Ventilation, Greater than 96 Consecutive Hours (ICD-10-PCS; principal; 2019-06-18)
DX: D62 Acute posthemorrhagic anemia (principal); Z99.11 Dependence on respirator [ventilator] status; E43 Unspecified severe protein-calorie malnutrition; G93.40 Encephalopathy, unspecified; J96.10 Chronic respiratory failure, unspecified whether with hypoxia or hypercapnia; L89.814 Pressure ulcer of head, stage 4; N17.9 Acute kidney failure, unspecified; N18.4 Chronic kidney disease, stage 4 (severe); Z93.0 Tracheostomy status; C79.89 Secondary malignant neoplasm of other specified sites; D68.59 Other primary thrombophilia; E11.22 Type 2 diabetes mellitus with diabetic chronic kidney disease; K21.9 Gastro-esophageal reflux disease without esophagitis; E87.0 Hyperosmolality and hypernatremia; G40.909 Epilepsy, unspecified, not intractable, without status epilepticus; Z93.1 Gastrostomy status; Z93.6 Other artificial openings of urinary tract status; Z74.01 Bed confinement status; Z79.4 Long term (current) use of insulin; I12.9 Hypertensive chronic kidney disease with stage 1 through stage 4 chronic kidney disease, or unspecified chronic kidney disease; L89.620 Pressure ulcer of left heel, unstageable; L89.610 Pressure ulcer of right heel, unstageable; M24.571 Contracture, right ankle; M24.572 Contracture, left ankle; D72.829 Elevated white blood cell count, unspecified; E88.09 Other disorders of plasma-protein metabolism, not elsewhere classified; Z68.24 Body mass index [BMI] 24.0-24.9, adult; E11.51 Type 2 diabetes mellitus with diabetic peripheral angiopathy without gangrene; I70.248 Atherosclerosis of native arteries of left leg with ulceration of other part of lower leg; L97.829 Non-pressure chronic ulcer of other part of left lower leg with unspecified severity; I70.238 Atherosclerosis of native arteries of right leg with ulceration of other part of lower leg; L97.819 Non-pressure chronic ulcer of other part of right lower leg with unspecified severity; F09 Unspecified mental disorder due to known physiological condition; B37.49 Other urogenital candidiasis; S01.00XA Unspecified open wound of scalp, initial encounter; X58.XXXA Exposure to other specified factors, initial encounter; Y93.9 Activity, unspecified; Y92.129 Unspecified place in nursing home as the place of occurrence of the external cause; C61 Malignant neoplasm of prostate; R13.10 Dysphagia, unspecified; C78.00 Secondary malignant neoplasm of unspecified lung
CPT/HCPCS: 31720; 36415; 71045-TC; 76770-TC; 80048-TC; 80053-TC; 80061-TC; 80076-TC; 80164-TC; 81000-TC; 82962-TC; 83735-TC; 84100-TC; 84443-TC; 85025-TC; 85027-TC; 85610-TC; 85652-TC; 85730-TC; 86850-TC; 86921-TC; 87040-TC; 87070-TC; 87081-TC; 87086-TC; 87186-TC; 94002-TC; 94003-TC; 94760-TC; 94762-TC; 99082-TC; A4216; A4623; A6248; A6253; A7526; G0378; J0696; J1815; J1956; J3475; J3490; J7030; J7040; J7050; J7060; P9016-BL

== ENCOUNTER 2019-07-01 09:37 | Inpatient (IN) | payer MEDICAID ==
[2019-07-01] VITALS (18 sets, daily range): BP systolic 88–131; BP diastolic 55–81
[~2019-07-01] VITALS: Ht 170.2 cm; Wt 72.6 kg
[~2019-07-01 09:37] MED LIST changes: +NUT.237L45 NG
--- NOTE | 2019-07-01 09:42 | NUR ---
PT [id number], FROM SNF, CAME IN DUE TO HYPOTENSION AND LOW 02, BP 80/62, BS 235, PT IS AAOX0, PT ON MECH VENT VIA TRACH RT AT BEDSIDE FOR SET UP, HOOKED TO MONITOR, KEPT RESTED AND COMFORTABLE, WILL CONTINUE TO MONITOR.
--- NOTE | 2019-07-01 09:45 | NUR ---
SEEN AND EXMINED BY
--- NOTE | 2019-07-01 09:50 | NUR ---
PT. BROUGHT TO ER MANUALLY RESUSCITATION VIA TRACH AND PLACED INTO [facility] VENT WITH FOLLOWING ORDERS: AC 12, VT 500ML, FIO2 30%, PEEP +5. BREATH SOUNDS COARSE RHONCHI BILATERAL. VENT PLUGGED INTO RED OUTLET WITH ALARMS ON AND FUNCTIONING. MONA BAG @ BEDSIDE. Addendum: 07/01/19 at 1007 by MONTRELL QUINTANILLA RT Amended: Links added.
[2019-07-01] MEDS ORDERED: IV NS 0.9% 1,000 ML BAG IV ONE (10:00)
[2019-07-01] MEDS ORDERED: CEFEPIME 1 GM in IV D5W 50 ML IV ONE (10:00)
--- NOTE | 2019-07-01 10:00 | NUR ---
IV LINE ESTABLISHED, BLOOD DRAWNED AND SENT TO LAB.
--- NOTE | 2019-07-01 10:03 | NUR ---
PARK CATH INSERTED, NO URINE OUTPUT, AWARE.
[2019-07-01 10:05] LABS: BASOPHILS % (AUTO) 0.3 % (0.0-2.0); EOSINOPHILS % (AUTO) 1.7 % (0.0-6.0); HEMATOCRIT 20 % (39-51); LYMPHOCYTES # (AUTO) 3.4 /CMM (0.8-4.8); LYMPHOCYTES % (AUTO) 24.7 % (20.0-44.0); MEAN CORPUSCULAR HGB CONC 33 g/dl (31.0-36.0); MEAN CORPUSCULAR VOLUME 96 fL (80-96); MONOCYTES % (AUTO) 14.6 % (2.0-12.0); NEUTROPHILS % (AUTO) 58.7 % (43.0-81.0); PLATELET COUNT (AUTO) 362 /CMM (150-450); RED BLOOD CELL COUNT(AUTO) 2.08 MIL/uL (4.5-6.0); WHITE BLOOD COUNT (AUTO) 13.7 K/uL (4.3-11.0)
[2019-07-01 10:07] LABS: HEMOGLOBIN 6.6 g/dL (13.5-17.5)
--- NOTE | 2019-07-01 10:09 | NUR ---
ACTUARIAL TECHNICIAN AT BEDSIDE FOR XRAY.
[2019-07-01 10:22] LABS: ALANINE AMINOTRANSFERASE 14 U/L (12-78); ALBUMIN 1.5 g/dL (3.4-5.0); ALKALINE PHOSPHATASE 192 U/L (46-116); ASPARTATE AMINOTRANSFERASE 20 U/L (15-37); BILIRUBIN,DIRECT 0.1 mg/dL (0.0-0.2); BILIRUBIN,TOTAL 0.2 mg/dL (0.2-1.0); CARBON DIOXIDE 24 mmol/L (21-32); CHLORIDE 106 mmol/L (98-107); GLUCOSE 156 mg/dL (74-106); LIPASE 189 U/L (73-393); POTASSIUM 4.3 mmol/L (3.5-5.1); SODIUM SERUM 139 mmol/L (136-145); TOTAL PROTEIN, SERUM 9.5 g/dL (6.4-8.2)
[2019-07-01 10:25] LABS: UREA NITROGEN, BLOOD 89 mg/dL (7-18)
--- NOTE | 2019-07-01 11:01 | NUR ---
PAGED MAGGIE GONZALES)
[2019-07-01 11:06] LABS: BAND % (MANUAL) 6 % (0.0-5.0); EOSINOPHILS % (MANUAL) 1 % (0-4); LYMPHOCYTES % (MANUAL) 18 % (16-48); MONOCYTES % (MANUAL) 12 % (0-11.0); NEUTROPHILS % (MANUAL) 63 (42-76)
--- NOTE | 2019-07-01 11:22 | NUR ---
DR. ROSALES AT BEDSIDE FOR EVAL.
--- NOTE | 2019-07-01 11:24 | NUR ---
CALLED [facility] FOR ICU BED
--- NOTE | 2019-07-01 11:27 | NUR ---
ICU BED 254
[2019-07-01 11:46] LABS: APPEARANCE,URINE Cloudy (CLEAR); BILIRUBIN,URINE SMALL (NEGATIVE); BLOOD, URINE Large Ery/uL (NEGATIVE); COLOR,URINE Red (YELLOW); KETONES,URINE Negative (NEGATIVE); LEUKOCYTE ESTERASE ,URINE Large (NEGATIVE); NITRITE, URINE Positive (NEGATIVE); PH,URINE 8.5 (5.0-8.0); PROTEIN,URINE >=300 mg/dl (NEGATIVE); UGLUCOSE Negative (NEGATIVE); UROBILINOGEN,URINE 0.2 EU/dL (0.2)
--- NOTE | 2019-07-01 11:56 | NUR ---
REPORT GIVEN TO COREY ACKERMAN FOR LIZETH, WITH ONGOING BLOOD TRANSFUSION.
[2019-07-01 12:01] LABS: RBC,URINE TOO NUMEROUS TO COUN /HPF (0-2)
[2019-07-01 12:02] LABS: BACTERIA,URINE Rare /HPF (None Seen); SQUAMOUS EPITHELIAL CELL,UR Few /HPF (None Seen)
--- NOTE | 2019-07-01 12:14 | NUR ---
FIO2 TITRATE DOWN FROM 30% TO ROOM AIR DUE TO 99% TO 100% SPO2. Addendum: 07/01/19 at 1215 by MONTRELL QUINTANILLA RT Amended: Links added.
[2019-07-01] MEDS ORDERED: ACETAMINOPHEN 325 MG TABLET PO PRN (12:30)
[2019-07-01] MEDS ORDERED: ONDANSETRON HCL/PF 4 MG/2 ML VIAL IVP PRN (12:30)
[2019-07-01] MEDS ORDERED: Z GUARD REMEDY 2 OZ OINT TP PRN (12:30)
[2019-07-01] MEDS ORDERED: HYDROCODONE/APAP 5/325MG 1 EACH TABLET PO PRN (12:30)
[2019-07-01] MEDS ORDERED: IV NS 0.9% 1,000 ML IV SCH (12:30)
[2019-07-01] MEDS ORDERED: MAGNESIUM HYDROXIDE 30 ML UDC PO PRN (12:30)
[2019-07-01] MEDS ORDERED: MAG HYDROX/AL HYDROX/SIMETH 30 ML UDC PO PRN (12:30)
--- NOTE | 2019-07-01 12:30 | NUR ---
BLOOD TRANSFUSION STARTED, VERIFIED BY 2 RN, V/S STABLE.
[2019-07-01] MEDS ORDERED: FEE PK DOSING 1 MIN EA MC ONE (12:41)
--- NOTE | 2019-07-01 13:16 | NUR ---
pt. transferred from er#8 to icu 254. [facility] vent plugged into red outlet with eve @ bedside. Addendum: 07/01/19 at 1317 by MONTRELL QUINTANILLA RT Amended: Links added.
--- NOTE | 2019-07-01 13:33 | NUR ---
WINDERMANLINK MACHINE OPERATOR NOTES PT ADMITTED FOR SEPSIS UNDER DR. ROSALES. VENT/TRACH DEPENDENT. PT TOLERATING VENT SETTINGS WELL. NO SOB OR ACUTE SIGNS OF DISTRESS NOTED. BREATHING IS EVEN AND UNLABORED. PT NOTED TO BE RECEIVING 1UNIT OF PRBC WHICH WAS RECENTLY STARTED IN ER. WILL CONTINUE TRANSFUSION AND ADMINISTER 2ND UNIT ONCE COMPLETE.PT TOLERATING TRANSFUSION WELL. NO S/S/ OF REACTION NOTED. ADMISSION ORDERS NOTED. RIGHT NEPHROSTOMY NOTED TO BE INTACT AND DRAINING. F/C NOTED TO BE DRAINING TO GRAVITY. HEMATURIA NOTED. AWARE. VSS. BED IN LOW LOCKED POSITION, SIDE RAILS UP X3, WILL CONTINUE TO CLOSELY MONITOR
--- NOTE | 2019-07-01 14:00 | NUR ---
CALL PLACED TO PHARMACY IN REGARDS TO VANCO. PER PHARMACIST, IT IS COMING UP
--- NOTE | 2019-07-01 14:58 | NUR ---
FREDI AGEE Addendum: 07/01/19 at 1459 by MONTRELL QUINTANILLA RT Amended: Links added.
--- NOTE | 2019-07-01 15:15 | NUR ---
HEEL PACKER NOTES: BLOOD TRANSFUSION (1) FIRST UNIT OF PRBC ADMINISTERED. SINCE BLOOD WAS STARTED IN ER, KAMLA BLOOD TRANSFUSION PAPERWORK COMPLETED AND PLACED IN PT'S CHART. PT TOLERATING INFUSION WELL.
--- NOTE | 2019-07-01 15:30 | NUR ---
PHARMACY CONTACTED AGAIN IN REGARD TO VANCO. PER PHARMACIST "UNABLE TO MIX AND BRING MEDICATION AT THIS TIME, BUT TECH WILL BRING ON UNIT SOON IT'S READY"
[2019-07-01] MEDS: IV NS 0.9% 1,000 ML IV PRN (17:21)
[2019-07-01] MEDS: VANCOMYCIN 1 GM in IV D5W 250 ML IV SCH (17:22)
--- NOTE | 2019-07-01 17:22 | NUR ---
FRONT OFFICE ASSISTANT NOTES: VANCO ADMINISTRATION MEDICATION JUST ARRIVED FROM PHARMACY AND ADMINISTERED LATE A RESULT. PHARMACIST MADE AWARE OF LATE ADMINISTRATION
[2019-07-01] MEDS: PIPERACILLIN /TAZOBACTAM 3.375 G in IV D5W 50 ML IV SCH (18:28)
[2019-07-01] MEDS ORDERED: NA PHOS,M-B/NA PHOS,DI-BA 1 EA ENEMA RC PRN (18:30)
[2019-07-01] MEDS ORDERED: MISCELLANEOUS MED 1 EA EA GT PRN (18:30)
[2019-07-01] MEDS ORDERED: IPRATROPIUM NEB FS 0.5 MG/2.5 ML AMPUL.NEB IH PRN (18:30)
[2019-07-01] MEDS ORDERED: MAGNESIUM HYDROXIDE 30 ML UDC GT PRN (18:30)
[2019-07-01] MEDS ORDERED: ALBUTEROL FS 2.5 MG/3 ML VIAL.NEB IH PRN (18:30)
[2019-07-01] MEDS ORDERED: BISACODYL SUPP (10 MG) 10 MG/SUPP.RECT SUPP.RECT RC PRN (18:30)
[2019-07-01] MEDS ORDERED: CLONIDINE HCL 0.1 MG TABLET GT PRN (18:30)
[2019-07-01] MEDS ORDERED: ACETAMINOPHEN 325 MG TABLET MC PRN (18:30)
--- NOTE | 2019-07-01 18:49 | NUR ---
BULLET SLUGS INSPECTOR CLOSING NOTES PT REMAINS STABLE S/P 1UNIT PRBC. VSS REMAIN STABLE SINCE ADMISSION. PT CURRENTLY RECEIVING ZOSYN INFUSION . UNABLE TO INSERT SECOND IV ACCESS DESPITE MULTIPLE ATTEMPTS BY VARIOUS RNS. MIDLINE LINE NURSE CONTACTED AND STATES THAT HE WILL BE HERE IN A FEW HRS. UNABLE TO ADMINISTER 2ND UNIT OF PRBC AT THIS TIME. WILL ENDORSE TO NIGHTSHIFT RN TO ADMINISTER AND FOR LIZETH
[2019-07-01] MEDS ORDERED: INSULIN REGULAR, HUMAN 100 UNIT/ML 3 ML VIAL SQ PRN (19:00)
[2019-07-01] MEDS ORDERED: DEXTROSE 50%-WATER 50 ML DISP.SYRIN IV PRN (19:00)
[2019-07-01] MEDS ORDERED: *INSULIN REGULAR(HUMULIN R)HUM 100 UNIT/ML VIAL SQ PRN (19:00)
--- NOTE | 2019-07-01 19:10 | NUR ---
ICU/RN NOTES RECEIVED PT OBTUNDED,OPES EYES BUT DOES NOT TRACK OR FOLLOWS COMMANDS.ON VENT PER TRACH PORTEX # 8,A/C,TV 500,PEEP OF 5,A/C12,FIO2 30% W/ O2 SAT 98%.MONITOR SHOWS NSR-SINUS TACH RATE 8O'S TO 120'S.GASTROSTOMY TUBE INTACT AND CLAMPED.PARK TO BEDSIDE BAG DRAINING PINK TO BLOODY URINE.IV INTACT W/ NS AT 100ML/HR.
[2019-07-01] MEDS: ALBUTEROL FS 2.5 MG/3 ML VIAL.NEB IH SCH (19:54)
[2019-07-01] MEDS: IPRATROPIUM NEB FS 0.5 MG/2.5 ML AMPUL.NEB IH SCH (19:54)
[2019-07-01] MEDS: HEPARIN SODIUM, PORCINE 5000 UNITS/1 ML VIAL SQ SCH (20:48)
[2019-07-01] MEDS: VALPROIC ACID 250 MG/5 ML UDC GT SCH (20:50)
[2019-07-01] MEDS ORDERED: PANTOPRAZOLE 40 MG/PACK PACK GT SCH (21:00)
[2019-07-01] MEDS: METOPROLOL TARTRATE 50 MG TABLET PO SCH (21:04)
[2019-07-01] MEDS: INSULIN GLARGINE, 100 UNIT/ML CARTRIDGE SQ SCH (22:41)
[2019-07-01] MEDS: TAMSULOSIN 0.4 MG CAP.SR.24H GT SCH (22:44)
[2019-07-01] MEDS: BLOOD SUGAR DIAGNOSTIC 1 EACH STRIP VI SCH (22:44)
[2019-07-02] VITALS (28 sets, daily range): BP systolic 86–114; BP diastolic 37–77
--- NOTE | 2019-07-02 00:24 | NUR ---
ICU/RN NOTES SECOND UNIT OF BLOOD HUNG.VS TAKEN.PT AFEBRILE.SUCTIONED FRO TRACH SCANT TO MODERATE THICK PALE YELLOW SECRETIONS.
[2019-07-02] MEDS: ALBUTEROL FS 2.5 MG/3 ML VIAL.NEB IH SCH ×4 (01:30→19:58)
[2019-07-02] MEDS: IPRATROPIUM NEB FS 0.5 MG/2.5 ML AMPUL.NEB IH SCH ×4 (01:30→19:58)
--- NOTE | 2019-07-02 03:00 | NUR ---
ICU/RN NOTES BLOOD INFUSED NO TX REACTION NOTED.
--- NOTE | 2019-07-02 04:00 | NUR ---
ICU/RN NOTES BED BATH GIVEN,1ST STEP APPLIED.PARK DRAINAGE GETTING OFFICE MACHINERY OR EQUIPMENT INSTALLER-PINK IN COLOR
[2019-07-02 04:30] LABS: BASOPHILS % (AUTO) 0.4 % (0.0-2.0); EOSINOPHILS % (AUTO) 2.4 % (0.0-6.0); HEMATOCRIT 25 % (39-51); HEMOGLOBIN 8.4 g/dL (13.5-17.5); LYMPHOCYTES # (AUTO) 2.7 /CMM (0.8-4.8); LYMPHOCYTES % (AUTO) 21.2 % (20.0-44.0); MEAN CORPUSCULAR HGB CONC 34 g/dl (31.0-36.0); MEAN CORPUSCULAR VOLUME 94 fL (80-96); MONOCYTES # (AUTO) 1.4 /CMM (0.1-1.30); MONOCYTES % (AUTO) 10.9 % (2.0-12.0); NEUTROPHILS # (AUTO) 8.4 /CMM (1.8-8.9); NEUTROPHILS % (AUTO) 65.1 % (43.0-81.0); PLATELET COUNT (AUTO) 369 /CMM (150-450); RED BLOOD CELL COUNT(AUTO) 2.64 MIL/uL (4.5-6.0); WHITE BLOOD COUNT (AUTO) 12.9 K/uL (4.3-11.0)
[2019-07-02] MEDS: IV NS 0.9% 1,000 ML IV PRN ×2 (04:41→17:01)
[2019-07-02 04:48] LABS: CALCIUM, SERUM 8.6 mg/dL (8.5-10.1); CREATININE 1.8 mg/dL (0.6-1.3); MAGNESIUM 2.3 mg/dL (1.8-2.4); PHOSPHORUS 3.4 mg/dL (2.5-4.9); POTASSIUM 3.8 mmol/L (3.5-5.1)
[2019-07-02] MEDS: PIPERACILLIN /TAZOBACTAM 3.375 G in IV D5W 50 ML IV SCH ×6 (05:40→23:58)
--- NOTE | 2019-07-02 06:00 | NUR ---
ICU/RN NOTES VS STABLE.MONITOR NSR.UROSTOMY DRAINED PALE YELLOW.
[2019-07-02] MEDS: VANCOMYCIN 1 GM in IV D5W 250 ML IV SCH (06:34)
--- NOTE | 2019-07-02 08:00 | NUR ---
ICU/RN INITIAL NOTES,AM RECEIVED BESIDE REPORT FROM NIGHT NURSE. PT OBTUNDED, DOES NOT FOLLOW COMMANDS. TRACH TO VENT WITH SETTINGS ORDERED BY MD. NO ACUTE DISTRESS NOTED. SINUS ON TELE. PT CURRENTLY NPO, NUTRITIONAL CONSULT TODAY. RIGHT UPPER ARM MIDLINE PATENT AND INTACT, NO S/S OF INFECTION OR INFILTRATION NOTED. LARGE TO MODERATE SECRETIONS NOTED. RIGHT NEPHROSTOMY TUBE DRAINING PROPERLY, PARK CATH DRAINING YELLOW PINK TINGED URINE. PT TURNED AND REPOSITIONED, ALL NEEDS WILL BE ATTENDED TO, SAFETY MEASURES TAKEN, BED IN LOW POSITION, SIDE RAILS UP, CALL LIGHT WITHIN REACH. WILL CONTINUE CARE.
[2019-07-02] MEDS: BLOOD SUGAR DIAGNOSTIC 1 EACH STRIP VI SCH ×2 (08:05→12:30)
[2019-07-02] MEDS: DOCUSATE SODIUM LIQ 100 MG/10 ML UDC GT SCH ×2 (08:52→16:54)
[2019-07-02] MEDS: ASCORBIC ACID 500 MG TABLET GT SCH (08:52)
[2019-07-02] MEDS: MULTIVIT W/MINERALS 1 TAB TABLET GT SCH (08:53)
[2019-07-02] MEDS: VALPROIC ACID 250 MG/5 ML UDC GT SCH ×2 (08:53→21:42)
[2019-07-02] MEDS: ACETAMINOPHEN 650 MG/20.3 ML UDC GT SCH (08:53)
[2019-07-02] MEDS: PROSOURCE / PROSTAT (PYXIS) 30 ML UDC GT SCH (08:53)
[2019-07-02] MEDS: CALCIUM CARBONATE (1250) 500 MG TABLET GT SCH (08:53)
[2019-07-02] MEDS: METOPROLOL TARTRATE 50 MG TABLET PO SCH ×2 (08:53→21:43)
[2019-07-02] MEDS: LACTOBACILLUS RHAMNOSUS GG 1 EACH CAP.SPRINK GT SCH ×2 (08:53→16:54)
[2019-07-02] MEDS: PANTOPRAZOLE 40 MG VIAL IV SCH (08:53)
[2019-07-02] MEDS: HEPARIN SODIUM, PORCINE 5000 UNITS/1 ML VIAL SQ SCH ×2 (08:55→21:44)
--- NOTE | 2019-07-02 09:44 | NUR ---
WOUND CARE CONSULT: PT PRESENTS WITH LEFT POSTERIOR HEAD WOUND, SACRAL SCARRING,SCARRING TO LOWER EXTREMITIES WITH PEELING SKIN/CALLUS TO RT HEEL, PRESENT ON ADMISSION. RECOMMENDATIONS MADE FOR WOUND CARE AND SKIN PROTECTION. DISCUSSED WITH NURSING STAFF. RECOMMEND DPM AND SURGICAL CONSULT. DR JENNA ONOFRE NOTIFIED OF CONSULT REQUEST. DR BEARDEN NOTIFIED OF NEED FOR DPM CONSULT. PT ON FIRST STEP CIRRUS LOW AIRLOSS MATTRESS. DEFER TO MD FOR NEPHROSTOMY TUBE RT SIDE. PT INCONTINENT OF STOOL. G TUBE SITE FOLLOWED BY GI MD. WILL SEE PRN. MD IN AGREEMENT WITH PLAN OF CARE. Addendum: 07/02/19 at 0948 by VANESSA CONTRERAS WNDNU Amended: Links added.
[2019-07-02] MEDS: HYDROGEL DRESSING 90 GM TUBE TP SCH (09:55)
[2019-07-02] MEDS ORDERED: HYDROGEL DRESSING 90 GM TUBE TP PRN (10:00)
--- NOTE | 2019-07-02 10:00 | NUR ---
ICU/RN: WOUND CARE CONSULT DONE, SKIN ASSESSED, NEW ORDERS RECEIVED, WILL FOLLOW THROUGH
[2019-07-02] MEDS ORDERED: DEXTROSE 50%-WATER 50 ML DISP.SYRIN IV PRN (16:30)
[2019-07-02] MEDS ORDERED: INSULIN REGULAR, HUMAN 100 UNIT/ML 3 ML VIAL SQ PRN (16:30)
[2019-07-02] MEDS: BLOOD SUGAR DIAGNOSTIC 1 EACH STRIP IN SCH ×2 (17:04→23:23)
--- NOTE | 2019-07-02 17:32 | NUR ---
SHIRT BANDER RECEIVING PATIENT RECEIVED WITH RN + RT @BEDSIDE FROM ICU. ATTACHED TO [facility] VENT, NO RESPIRATORY DISTRESS NOTED, SPO2 100%, BP 106/65 LEFT ARM, HR 90, SINUS RHYTHM, TELE MONITOR ATTACHED. SUCTIONED X1. RIGHT NEPHROSTOMY + PARK DRAINING PINK URINE. GTF RUNNING @65mL/HR. BO MIDLINE INFUSING NS @100mL/HR+ R FA 18G C/D/I. SUCTION EQUIPMENT + AMBU BAG AT BEDSIDE. WILL ENDORSE TO NOC RN FOR LIZETH
--- NOTE | 2019-07-02 17:45 | NUR ---
ICU/RN: TRANSFERRED PT TO ROOM 112-2 WITH ACLS GUIDELINES, ALL BELONGINGS AND MEDICATIONS TRANSFERRED WITH PT. BESIDE REPORT ENDORSED TO COREY RODRIGUEZ. ALL NEEDS ATTENDED TO, SAFETY MEASURES TAKEN, BED IN LOW POSITION, SIDE RAILS UP, CALL LIGHT WITHIN REACH. WILL CONTINUE TO MONITOR AND CARE.
[2019-07-02 17:46] LABS: OCCULT BLOOD STOOL NEGATIVE (NEGATIVE)
[2019-07-02] MEDS: TAMSULOSIN 0.4 MG CAP.SR.24H GT SCH (21:42)
[2019-07-02] MEDS: INSULIN GLARGINE, 100 UNIT/ML CARTRIDGE SQ SCH (23:22)
[2019-07-03] VITALS: BP 94/57
[2019-07-03] MEDS: VANCOMYCIN 1 GM in IV D5W 250 ML IV SCH (00:52)
[2019-07-03] MEDS: ALBUTEROL FS 2.5 MG/3 ML VIAL.NEB IH SCH ×3 (01:50→13:55)
[2019-07-03] MEDS: IPRATROPIUM NEB FS 0.5 MG/2.5 ML AMPUL.NEB IH SCH ×3 (01:50→13:55)
[2019-07-03 04:00] VITALS: BP 109/75
[2019-07-03] MEDS: BLOOD SUGAR DIAGNOSTIC 1 EACH STRIP IN SCH ×2 (05:53→11:59)
[2019-07-03] MEDS: PIPERACILLIN /TAZOBACTAM 3.375 G in IV D5W 50 ML IV SCH ×3 (05:53→16:23)
--- NOTE | 2019-07-03 06:39 | NUR ---
PATIENT REMAINS IN NO ACUTE DISTRESS IN BED. PATIENT DID NOT HAVE ANY SIGNIFICANT CHANGE IN CONDITION DURING SHIFT. PATIENT TOLERATED VENT SETTING WELL. ALL NEEDS MET, ALL ORDERS CARRIED OUT. WILL ENDORSE CARE TO AM RN FOR CONTINUITY OF CARE.
[2019-07-03 07:37] LABS: CALCIUM, SERUM 8.5 mg/dL (8.5-10.1); CREATININE 1.5 mg/dL (0.6-1.3); POTASSIUM 3.7 mmol/L (3.5-5.1)
[2019-07-03] MEDS: PANTOPRAZOLE 40 MG VIAL IV SCH (07:56)
[2019-07-03 08:00] VITALS: BP 121/80
--- NOTE | 2019-07-03 08:00 | NUR ---
MATCH UP WORKER: pt.is obtunded, reactive by touch, rest, no grinacing, no SOB, SR, SBP over 100, O2sat. over 96%, GTF residual WNL, got report vent PEEP 5, now 0, RT confirmed, all wounds care done by report
[2019-07-03] MEDS: DOCUSATE SODIUM LIQ 100 MG/10 ML UDC GT SCH ×3 (09:00→16:23)
[2019-07-03] MEDS: CALCIUM CARBONATE (1250) 500 MG TABLET GT SCH (09:04)
[2019-07-03] MEDS: ASCORBIC ACID 500 MG TABLET GT SCH (09:04)
[2019-07-03] MEDS: METOPROLOL TARTRATE 50 MG TABLET PO SCH (09:04)
[2019-07-03] MEDS: LACTOBACILLUS RHAMNOSUS GG 1 EACH CAP.SPRINK GT SCH ×2 (09:05→16:23)
[2019-07-03] MEDS: MULTIVIT W/MINERALS 1 TAB TABLET GT SCH (09:05)
[2019-07-03] MEDS: ACETAMINOPHEN 650 MG/20.3 ML UDC GT SCH (09:05)
[2019-07-03] MEDS: VALPROIC ACID 250 MG/5 ML UDC GT SCH (09:05)
[2019-07-03] MEDS: PROSOURCE / PROSTAT (PYXIS) 30 ML UDC GT SCH (09:06)
[2019-07-03] MEDS: HEPARIN SODIUM, PORCINE 5000 UNITS/1 ML VIAL SQ SCH (09:07)
--- NOTE | 2019-07-03 09:30 | NUR ---
RN GERALDINE: updated, ordered stool OB
[2019-07-03] MEDS: IV NS 0.9% 1,000 ML IV PRN (09:34)
[2019-07-03] MEDS: HYDROGEL DRESSING 90 GM TUBE TP SCH (09:34)
[2019-07-03 09:36] LABS: BASOPHILS % (AUTO) 0.2 % (0.0-2.0); EOSINOPHILS % (AUTO) 4.5 % (0.0-6.0); HEMATOCRIT 27 % (39-51); HEMOGLOBIN 8.9 g/dL (13.5-17.5); LYMPHOCYTES # (AUTO) 2.4 /CMM (0.8-4.8); LYMPHOCYTES % (AUTO) 20.8 % (20.0-44.0); MEAN CORPUSCULAR HGB CONC 33 g/dl (31.0-36.0); MEAN CORPUSCULAR VOLUME 94 fL (80-96); MONOCYTES # (AUTO) 1.1 /CMM (0.1-1.30); MONOCYTES % (AUTO) 9.7 % (2.0-12.0); NEUTROPHILS # (AUTO) 7.3 /CMM (1.8-8.9); NEUTROPHILS % (AUTO) 64.8 % (43.0-81.0); PLATELET COUNT (AUTO) 395 /CMM (150-450); RED BLOOD CELL COUNT(AUTO) 2.87 MIL/uL (4.5-6.0); WHITE BLOOD COUNT (AUTO) 11.3 K/uL (4.3-11.0)
[2019-07-03] MEDS ORDERED: PIPE3.379 IV (11:16)
[2019-07-03 12:05] VITALS: BP 113/74
[2019-07-03] MEDS: GLUCERNA SHAKE 237 ML CAN NG PRN ×2 (14:23→14:46)
--- NOTE | 2019-07-03 15:08 | NUR ---
[facility] No resp distress or sob noted. Trach is patent and secured. sx'd for moderate amt of thick pale yellow secretions. Alarms are set and audible. Vent plugged into red outlet. Ambu bag bedside. Will continue to monitor. Addendum: 07/03/19 at 1508 by JHONATHAN POLLARD RT Amended: Links added.
--- NOTE | 2019-07-03 15:52 | NUR ---
RN GERALDINE: same neurostatus, pt.is suctioned well, VS stable, all wounds care, stomas care done, wounds photos with d/c done, skin/PM care done, O2sat WNL
[2019-07-03 16:00] VITALS: BP 120/81
--- NOTE | 2019-07-03 17:15 | NUR ---
RN GERALDINE: full report was given for Adriana([facility]) and transportation team([facility]) before to transfer, transportation team got discharge package
== END 2019-07-03 17:35 | DRG 720 ==
LOC: ER 09:41 → ICU 11:48 → TELE1 07-02 17:29
PROVIDERS: ADMIT Internal Medicine; ATTEND Internal Medicine
PROC: 30233N1 Transfusion of Nonautologous Red Blood Cells into Peripheral Vein, Percutaneous Approach (ICD-10-PCS; principal; 2019-07-01)
PROC: 5A1945Z Respiratory Ventilation, 24-96 Consecutive Hours (ICD-10-PCS; principal; 2019-07-01)
PROC: 05H533Z Insertion of Infusion Device into Right Subclavian Vein, Percutaneous Approach (ICD-10-PCS; principal; 2019-07-01)
DX: A41.9 Sepsis, unspecified organism (principal); J96.21 Acute and chronic respiratory failure with hypoxia; N17.0 Acute kidney failure with tubular necrosis; R65.21 Severe sepsis with septic shock; E43 Unspecified severe protein-calorie malnutrition; Z99.11 Dependence on respirator [ventilator] status; E88.09 Other disorders of plasma-protein metabolism, not elsewhere classified; C78.00 Secondary malignant neoplasm of unspecified lung; D68.59 Other primary thrombophilia; E11.22 Type 2 diabetes mellitus with diabetic chronic kidney disease; D62 Acute posthemorrhagic anemia; E87.0 Hyperosmolality and hypernatremia; N39.0 Urinary tract infection, site not specified; G40.909 Epilepsy, unspecified, not intractable, without status epilepticus; I12.9 Hypertensive chronic kidney disease with stage 1 through stage 4 chronic kidney disease, or unspecified chronic kidney disease; N18.4 Chronic kidney disease, stage 4 (severe); Z79.899 Other long term (current) drug therapy; Z85.46 Personal history of malignant neoplasm of prostate; Z93.1 Gastrostomy status; Z93.6 Other artificial openings of urinary tract status; Z79.4 Long term (current) use of insulin; K21.9 Gastro-esophageal reflux disease without esophagitis; N40.1 Benign prostatic hyperplasia with lower urinary tract symptoms; G93.49 Other encephalopathy; F09 Unspecified mental disorder due to known physiological condition; M24.571 Contracture, right ankle; M24.572 Contracture, left ankle; E11.51 Type 2 diabetes mellitus with diabetic peripheral angiopathy without gangrene; D63.1 Anemia in chronic kidney disease; X58.XXXA Exposure to other specified factors, initial encounter; S01.00XA Unspecified open wound of scalp, initial encounter; Y93.9 Activity, unspecified; Y92.129 Unspecified place in nursing home as the place of occurrence of the external cause; L89.620 Pressure ulcer of left heel, unstageable; L90.5 Scar conditions and fibrosis of skin; L89.619 Pressure ulcer of right heel, unspecified stage; R23.4 Changes in skin texture; N13.6 Pyonephrosis; Z74.01 Bed confinement status; C79.51 Secondary malignant neoplasm of bone; Z68.25 Body mass index [BMI] 25.0-25.9, adult
CPT/HCPCS: 31720; 36415; 71045-TC; 80048-TC; 80076-TC; 81000-TC; 82272-TC; 82962-TC; 83690-TC; 83735-TC; 84100-TC; 84484-TC; 85025-TC; 85730-TC; 86850-TC; 86921-TC; 87081-TC; 87086-TC; 94002-TC; 94003-TC; 94760-TC; A4623; A6248; A6253; C9113; G0378; J0692; J1644; J1815; J2543; J3370; J7030; J7050; J7060; P9016-BL

== ENCOUNTER 2019-07-17 10:48 | Inpatient (IN) | payer MEDICAID ==
[~2019-07-17] VITALS: Ht 170.2 cm; Wt 75.3 kg
[~2019-07-17 10:48] MED LIST changes: +PIPE3.379 IV
--- NOTE | 2019-07-17 11:18 | NUR ---
RT NOTE PT PLACED ON VENT PER MD ORDER. PT HAS PORTEX 8 CUFFED [address] TUBE IN PLACE. CUFF INFLATED. TRACH TUBE MIDLINE AND SECURE. VENTILATOR SETTINGS PRESCRIBED BY TRANSPORT RT AC 12 500 40% +5. ALARMS SET PER PROTOCOL AND AUDIBLE. VENT PLUGGED IN TO RED OUTLET. AMBU BAG AT BED SIDE. NO DISTRESS NOTED. Addendum: 07/17/19 at 1120 by NAKITA JIMENEZ RT Amended: Links added.
[2019-07-17] MEDS ORDERED: BICA50TA49 PO (11:29)
[2019-07-17] MEDS ORDERED: CHLO473M3 MM (11:29)
[2019-07-17 11:31] LABS: BASOPHILS % (AUTO) 0.3 % (0.0-2.0); EOSINOPHILS % (AUTO) 2.3 % (0.0-6.0); LYMPHOCYTES # (AUTO) 3.3 /CMM (0.8-4.8); LYMPHOCYTES % (AUTO) 24.9 % (20.0-44.0); MEAN CORPUSCULAR HGB CONC 32 g/dl (31.0-36.0); MEAN CORPUSCULAR VOLUME 98 fL (80-96); MONOCYTES # (AUTO) 1.4 /CMM (0.1-1.30); MONOCYTES % (AUTO) 10.8 % (2.0-12.0); NEUTROPHILS # (AUTO) 8.2 /CMM (1.8-8.9); NEUTROPHILS % (AUTO) 61.7 % (43.0-81.0); PLATELET COUNT (AUTO) 247 /CMM (150-450); WHITE BLOOD COUNT (AUTO) 13.3 K/uL (4.3-11.0)
[2019-07-17 11:36] LABS: RED BLOOD CELL COUNT(AUTO) 1.86 MIL/uL (4.5-6.0)
[2019-07-17 11:38] LABS: HEMATOCRIT 18 % (39-51); HEMOGLOBIN 5.8 g/dL (13.5-17.5)
[2019-07-17 11:39] LABS: CALCIUM, SERUM 8.9 mg/dL (8.5-10.1); CREATININE 1.7 mg/dL (0.6-1.3); POTASSIUM 3.1 mmol/L (3.5-5.1)
[2019-07-17 11:44] LABS: ALBUMIN 1.5 g/dL (3.4-5.0); BILIRUBIN,DIRECT 0.1 mg/dL (0.0-0.2); BILIRUBIN,TOTAL 0.2 mg/dL (0.2-1.0); TOTAL PROTEIN, SERUM 9.5 g/dL (6.4-8.2)
--- NOTE | 2019-07-17 11:50 | NUR ---
PT EYES OPEN, NO RESP DISTRESS NOTED, ON VENT. PT ON CONT CARDIAC MONITORING, NO ACUTE DISTRESS NOTED & WILL CONT TO MONITOR.
--- NOTE | 2019-07-17 12:43 | NUR ---
CALLED [employer]. OBSTETRICS NURSE WAS PAGED.
--- NOTE | 2019-07-17 12:51 | NUR ---
CALLED [facility] FOR TELE BED
[2019-07-17 13:22] LABS: NEUTROPHILS % (MANUAL) 64 (42-76)
[2019-07-17 13:23] LABS: EOSINOPHILS % (MANUAL) 2 % (0-4); LYMPHOCYTES % (MANUAL) 29 % (16-48); MONOCYTES % (MANUAL) 5 % (0-11.0)
--- NOTE | 2019-07-17 14:00 | NUR ---
RN NOTES 1 UNIT PRBC TRANSFUSION FINISHED. VSS. NO ADVERSE REACTION NOTED. WILL WILFREDOTR ACCORDINGLY. Addendum: 07/17/19 at 1734 by MARITZA LOVE WRONG TIME
--- NOTE | 2019-07-17 14:45 | NUR ---
REPORT GIVEN TO COREY CROOK FOR LIZETH.
[2019-07-17 15:00] VITALS: BP 121/71
--- NOTE | 2019-07-17 15:00 | NUR ---
RECEIVED PATIENT FROM OR VIA [facility]. DIAGNOSIS OF ANEMIA WITH H/H OF 5.8/18. PATIENT IS VENT DEPENDENT. TRACH PORTEX 8. PATIENT IS OBTUNDED. TELEMONITOR READING SR 86. NOT IN ANY FORM OF DISTRESS. NO SOB. NO S/S OF PAIN OR DISCOMFORT. ONGOING BLOOD TRANSFUSION OF 1UNIT PRBC STARTED IN THE ER. VSS. MIDLINE RUE INTACT AND PATENT. GTUBE IN PLACE, CLAMPED. PARK IN PLACE DRAINING CLEAR YELLOW URINE. ALSO HAS UROSTOMY DRAINING CLEAR YELLOW URINE. SITUATED PATIENT NEEDS ATTENDED SKIN ASSESSMENT DONE. PATIENT IS CONTRACTED ON BILATERAL UPPER AND LOWER EXTREMITIES. NO SACRAL REDNESS NOR WOUNDS. NOTED WITH OPEN WOUND ON POSTERIOR HEAD. MULTIPLE SCARS NOTED ON BLE. SKIN IS VERY DRY, APPLIED LOTION. NO BELONGINGS NOTED. SUCTIONED PATIENT TRACH NEEDED. NEEDS ATTENDED. SAFETY MEASURES IN PLACE. BED IN LOW/LOCKED POSITION, SIDERAILS UP, HOB ELEVATED. BED ALARM ON. WILL CONTINUE TO MONITR ACCORDINGLY.
[2019-07-17 16:00] VITALS: BP_SYST 121; BP_SYST 138; BP_DIAS 71; BP_DIAS 78
--- NOTE | 2019-07-17 16:00 | NUR ---
RN NOTES: BLOOD TRANSFUSED 1 UNIT PRBC TRANSFUSION FINISHED. VSS. NO ADVERSE REACTION NOTED. WILL MONIOTR ACCORDINGLY.
[2019-07-17] MEDS ORDERED: ALBUTEROL FS 2.5 MG/3 ML VIAL.NEB IH PRN (17:00)
[2019-07-17] MEDS ORDERED: Z GUARD REMEDY 2 OZ OINT TP PRN (17:00)
[2019-07-17] MEDS ORDERED: ACETAMINOPHEN 650 MG/SUPP.RECT RC PRN (17:00)
[2019-07-17] MEDS ORDERED: BISACODYL SUPP (10 MG) 10 MG/SUPP.RECT SUPP.RECT RC PRN (17:00)
[2019-07-17] MEDS ORDERED: DEXTROSE 50%-WATER 50 ML DISP.SYRIN IV PRN (17:00)
[2019-07-17] MEDS ORDERED: IPRATROPIUM NEB FS 0.5 MG/2.5 ML AMPUL.NEB IH PRN (17:00)
[2019-07-17] MEDS ORDERED: MAGNESIUM HYDROXIDE 30 ML UDC GT PRN (17:00)
[2019-07-17] MEDS ORDERED: MORPHINE SULFATE INJ 2 MG/ML DISP.SYRIN IV PRN (17:00)
[2019-07-17] MEDS ORDERED: ONDANSETRON HCL/PF 4 MG/2 ML VIAL IVP PRN (17:00)
[2019-07-17] MEDS: DOCUSATE SODIUM LIQ 100 MG/10 ML UDC GT SCH (17:21)
[2019-07-17] MEDS: CHLORHEXIDINE GLUCONATE 15 ML UDC MM SCH (17:21)
[2019-07-17] MEDS: LACTOBACILLUS RHAMNOSUS GG 1 EACH CAP.SPRINK GT SCH (17:30)
[2019-07-17] MEDS: BLOOD SUGAR DIAGNOSTIC 1 EACH STRIP IN SCH ×2 (17:30→21:43)
--- NOTE | 2019-07-17 19:00 | NUR ---
RN CLOSING NOTES PATIENT IN STABLE CONDITION. ALL NEED ATTENDED AND PROVIDED. ALL DUE MEDS GIVEN ORDERED. TURNED AND REPOSITIONED EVERY 2HRS NEEDED. BED IN LOW/LOCKED PSOITON, SIDERAILS UP. BED ALARM ON. HOB ELEVATED. ENDORSED TO NIGHT RN FOR LIZETH.
[2019-07-17 20:00] VITALS: BP 136/80
[2019-07-17 20:10] VITALS: BP 136/80
[2019-07-17] MEDS: ALBUTEROL FS 2.5 MG/3 ML VIAL.NEB IH SCH (20:13)
[2019-07-17] MEDS: IPRATROPIUM NEB FS 0.5 MG/2.5 ML AMPUL.NEB IH SCH (20:13)
[2019-07-17] MEDS: IV D5/0.45 NACL 1,000 ML IV PRN (20:28)
[2019-07-17 20:46] LABS: BASOPHILS % (AUTO) 0.3 % (0.0-2.0); EOSINOPHILS % (AUTO) 2.8 % (0.0-6.0); HEMATOCRIT 25 % (39-51); HEMOGLOBIN 8.3 g/dL (13.5-17.5); LYMPHOCYTES # (AUTO) 3.3 /CMM (0.8-4.8); MEAN CORPUSCULAR HGB CONC 33 g/dl (31.0-36.0); MEAN CORPUSCULAR VOLUME 95 fL (80-96); MONOCYTES # (AUTO) 1.7 /CMM (0.1-1.30); MONOCYTES % (AUTO) 11.6 % (2.0-12.0); NEUTROPHILS # (AUTO) 9.1 /CMM (1.8-8.9); NEUTROPHILS % (AUTO) 62.3 % (43.0-81.0); PLATELET COUNT (AUTO) 248 /CMM (150-450); RED BLOOD CELL COUNT(AUTO) 2.67 MIL/uL (4.5-6.0); WHITE BLOOD COUNT (AUTO) 14.6 K/uL (4.3-11.0)
--- NOTE | 2019-07-17 20:46 | NUR ---
RN NOTES PM SHIFT RECEIVED PATIENT IN BED, OBTUNDED, EYES ARE OPEN, VENT DEPENDENT, SPO2 100%, BLOODY LIPS, RIGHT UPPER TOOTH DIGGING INTO LIPS, SUCTIONED PRN, ORAL CARE, RIGHT NEPHROSTOMY DRAINING WELL WITH CLEAR AND YELLOW URINE, PARK CATHETER DRAINING WELL, CLEAR AND YELLOW URINE, PEG TUBE CLAMPED UNTIL GI BLEED IS RULED OUT, PRBC 1 UNIT GIVEN FOR HGB OF 5.8, CBC STAT STILL PENDING, BO MIDLINE, DBL LUMEN, D51/2 NS AT 75 ML/HR, ACCUCHECK, KEPT HOB ELEVATED, ASPIRATION PRECAUTION, KEPT DRY AND CLEAN, WILL CONTINUE TO MONITOR.
[2019-07-17] MEDS: HEPARIN SODIUM, PORCINE 5000 UNITS/1 ML VIAL SQ SCH (21:00)
[2019-07-17] MEDS: VALPROIC ACID 250 MG/5 ML UDC GT SCH (21:21)
[2019-07-17] MEDS: PANTOPRAZOLE 40 MG/PACK PACK GT SCH (21:22)
[2019-07-17] MEDS: AMLODIPINE BESYLATE 5 MG TABLET GT SCH (21:22)
[2019-07-17] MEDS: TAMSULOSIN 0.4 MG CAP.SR.24H GT SCH (21:22)
[2019-07-17] MEDS: METOPROLOL TARTRATE 50 MG TABLET GT SCH (21:22)
[2019-07-17] MEDS: INSULIN REGULAR, HUMAN 100 UNIT/ML 3 ML VIAL SQ PRN (21:44)
[2019-07-17] MEDS: INSULIN GLARGINE, 100 UNIT/ML CARTRIDGE SQ SCH (21:46)
[2019-07-17] MEDS: POTASSIUM CL. PREMIX PERIPHER. 50 ML IV SCH ×2 (21:48→22:49)
[2019-07-18] VITALS (7 sets, daily range): BP systolic 101–126; BP diastolic 65–82
--- NOTE | 2019-07-18 00:11 | NUR ---
RN NOTES LATEST HGB 8.3 AFTER PRBC 1 UNIT, POTASSIUM 3.1, NEW ORDER OF KCL 20 MEQ BOLUS, ORDER NOTED AND CARRIED OUT
[2019-07-18] MEDS: IPRATROPIUM NEB FS 0.5 MG/2.5 ML AMPUL.NEB IH SCH ×4 (01:26→19:28)
[2019-07-18] MEDS: ALBUTEROL FS 2.5 MG/3 ML VIAL.NEB IH SCH ×4 (01:26→19:28)
--- NOTE | 2019-07-18 02:08 | NUR ---
RN NOTES HEPARIN HELD, HGB BEFORE CBC 5.6
--- NOTE | 2019-07-18 06:44 | NUR ---
RN NOTES NOC SHIFT PATIENT IS OBTUNDED, EYES ARE OPEN, VENT DEPENDENT, STABLE SPO2 AT 100%, NOT IN APPARENT DISTRESS, SUCTIONED BID, TRACH CARE PERFORMED, NEPHROSTOMY AND PARK CATHETER DRAINING WELL WITH CLEAR AND YELLOW URINE. HEELS OFFLOADED, BG 99, ON D5 1/2 NS AT 75 ML/HR, PEG TUBE FEEDING HELD TILL GI BLEED IS RULED OUT, WITH ORDER OF STOOL FOR OB.
[2019-07-18 06:47] LABS: BASOPHILS % (AUTO) 0.4 % (0.0-2.0); EOSINOPHILS % (AUTO) 3.1 % (0.0-6.0); HEMATOCRIT 24 % (39-51); HEMOGLOBIN 7.7 g/dL (13.5-17.5); LYMPHOCYTES # (AUTO) 2.9 /CMM (0.8-4.8); LYMPHOCYTES % (AUTO) 23.1 % (20.0-44.0); MEAN CORPUSCULAR HGB CONC 32 g/dl (31.0-36.0); MEAN CORPUSCULAR VOLUME 95 fL (80-96); MONOCYTES # (AUTO) 1.2 /CMM (0.1-1.30); MONOCYTES % (AUTO) 9.2 % (2.0-12.0); NEUTROPHILS # (AUTO) 8.1 /CMM (1.8-8.9); NEUTROPHILS % (AUTO) 64.2 % (43.0-81.0); PLATELET COUNT (AUTO) 269 /CMM (150-450); RED BLOOD CELL COUNT(AUTO) 2.51 MIL/uL (4.5-6.0); WHITE BLOOD COUNT (AUTO) 12.7 K/uL (4.3-11.0)
[2019-07-18 06:56] LABS: BILIRUBIN,TOTAL 0.3 mg/dL (0.2-1.0); CALCIUM, SERUM 8.7 mg/dL (8.5-10.1); CREATININE 1.6 mg/dL (0.6-1.3); MAGNESIUM 1.8 mg/dL (1.8-2.4); PHOSPHORUS 3.2 mg/dL (2.5-4.9); POTASSIUM 3.4 mmol/L (3.5-5.1); TOTAL PROTEIN, SERUM 9.6 g/dL (6.4-8.2)
[2019-07-18 07:00] LABS: THYROID STIMULATING HORMONE 3.893 uIU/mL (0.358-3.74)
--- NOTE | 2019-07-18 07:35 | NUR ---
BANDSAW OPERATOR OPENING NOTES RECEIVED PT IN BED WITH HOB ELEVATED. PT IS OBTUNDED, AFEBRILE. RESPIRATIONS ARE EVEN AND UNLABORED, NOT IN ANY ACUTE DISTRESS NOTED. PT IS CURRENTLY ON VENT AND TOLERATING VENT SETTINGS WELL. NO FACIAL GRIMACING OR MOANING NOTED. MIDLINE NOTED TO BO INTACT, NO INFILTRATION NOTED. DRESSING KEPT CLEAN AND DRY. PT NOTED WITH NEPHROSTOMY TUBE AND PARK CATH. BOTH ARE IN PLACE, INTACT. DRAINING YELLOW URINE. TUBING IS FREE OF KINKS AND FREELY DRAINING. BILATERAL HEELS ARE OFFLOADED. WILL REPOSITION Q2H TO PREVENT FURTHER SKIN BREAKDOWN. SAFETY MEASURES ARE IN PLACE. WILL MONITOR THROUGHOUT SHIFT FOR CONTINUITY OF CARE.
[2019-07-18 07:50] LABS: ALBUMIN 1.4 g/dL (3.4-5.0)
[2019-07-18] MEDS: BLOOD SUGAR DIAGNOSTIC 1 EACH STRIP IN SCH ×4 (08:32→21:09)
[2019-07-18] MEDS: PROSOURCE / PROSTAT (PYXIS) 30 ML UDC GT SCH (08:33)
[2019-07-18] MEDS: CHLORHEXIDINE GLUCONATE 15 ML UDC MM SCH ×2 (08:33→17:19)
[2019-07-18] MEDS: VALPROIC ACID 250 MG/5 ML UDC GT SCH ×2 (08:33→21:00)
[2019-07-18] MEDS: LACTOBACILLUS RHAMNOSUS GG 1 EACH CAP.SPRINK GT SCH ×3 (08:33→17:19)
[2019-07-18] MEDS: PANTOPRAZOLE 40 MG/PACK PACK GT SCH ×2 (08:33→21:00)
[2019-07-18] MEDS: METOPROLOL TARTRATE 50 MG TABLET GT SCH ×2 (08:33→21:00)
[2019-07-18] MEDS: ASCORBIC ACID 500 MG TABLET GT SCH (08:33)
[2019-07-18] MEDS: DOCUSATE SODIUM LIQ 100 MG/10 ML UDC GT SCH ×2 (08:33→17:19)
[2019-07-18] MEDS: CALCIUM CARBONATE (1250) 500 MG TABLET GT SCH (08:33)
[2019-07-18] MEDS: BICALUTAMIDE 50 MG TABLET PO SCH (08:39)
[2019-07-18] MEDS: ACETAMINOPHEN 650 MG/20.3 ML UDC GT SCH (08:39)
[2019-07-18] MEDS: HEPARIN SODIUM, PORCINE 5000 UNITS/1 ML VIAL SQ SCH ×2 (08:58→21:00)
--- NOTE | 2019-07-18 08:59 | NUR ---
LONG WALL MINING MACHINE HELPER NOTES-- PER DR. BRUMFIELD, HOLD MORNING HEPARIN DOSE AND NEW ORDER FOR K 40MEQ FOR LOW K OF 3.4 ORDERS READ BACK AND VERIFIED. NOTED AND CARRIED OUT.
[2019-07-18] MEDS ORDERED: POTASSIUM CL. PREMIX PERIPHER. 50 ML IV SCH (09:45)
[2019-07-18] MEDS: IV D5/0.45 NACL 1,000 ML IV PRN ×2 (10:03→23:36)
--- NOTE | 2019-07-18 13:37 | NUR ---
MS RN NOTES-- PT REMAINS ON VENT AND TOLERATING VENT SETTINGS WELL. REPOSITIONED Q2H. BILATERAL HEELS ARE OFFLOADED. WILL CONTINUE TO MONITOR.
--- NOTE | 2019-07-18 18:34 | NUR ---
MAINTENANCE ASSOCIATE CLOSING NOTES ALL DUE MEDS GIVEN, NEEDS MET AND RENDERED. PT REMAINS OBTUNDED, NONVERBAL. RESPIRATIONS ARE EVEN AND UNLABORED, NOT IN ANY ACUTE DISTRESS NOTED. PT IS TOLERATING VENT SETTINGS WELL. MIDLINE NOTED TO BO INTACT, NO INFILTRATION NOTED. DRESSING KEPT CLEAN AND DRY. REPOSITIONED Q2H. SUCTIONED FREQUENTLY. SAFETY MEASURES ARE IN PLACE. WILL ENDORSE TO NEXT SHIFT FOR CONTINUITY OF CARE.
--- NOTE | 2019-07-18 19:00 | NUR ---
SURGERY SPECIALIST NOTE RECEIVED PT IN STABLE CONDITION. PT NOTED TO BE ON VENT, TOLERATING SETTINGS WELL. NO SIGNS OF SOB OR DISTRESS, NO INDICATIONS OF PAIN. TELE MONITOR: SR 92. PT NOTED WITH NEPHROSTOMY TUBE DRAINING CLEAR YELLOW URINE, AND PARK DRAINING CLEAR YELLOW URINE. PT REMAINS NPO WITH BO MIDLINE INFUSING D51/2 NS @ 75 ML/HR. ALL CURRENT NEEDS ATTENDED TO. BED LOW, LOCKED, UPPER RAILS IN PLACE. WILL CONT TO CLOSELY MONITOR.
--- NOTE | 2019-07-18 20:40 | NUR ---
TELEVISION ANALYZER NOTE PT NOTED WITH HBG 7.7, KARINA NOTIFIED, 2100 DOSE OF HEPARIN TO BE HELD. WILL CONT. TO MONITOR.
[2019-07-18 20:50] LABS: OCCULT BLOOD STOOL NEGATIVE (NEGATIVE)
[2019-07-18] MEDS: AMLODIPINE BESYLATE 5 MG TABLET GT SCH (21:07)
[2019-07-18] MEDS: TAMSULOSIN 0.4 MG CAP.SR.24H GT SCH (21:07)
[2019-07-18] MEDS: INSULIN GLARGINE, 100 UNIT/ML CARTRIDGE SQ SCH (21:09)
--- NOTE | 2019-07-18 21:10 | NUR ---
CELL EFFICIENCY SUPERVISOR NOTE 2200 DOSE OF 12 UNITS LANTUS HELD, BS 98, PT IS NPO (NO FEEDING), RUNNING D5 1/2 NS @ 75 ML/HR. WILL CONT TO MONITOR.
[2019-07-19] VITALS (7 sets, daily range): BP systolic 110–127; BP diastolic 70–82
[2019-07-19] MEDS: ALBUTEROL FS 2.5 MG/3 ML VIAL.NEB IH SCH ×4 (01:06→19:28)
[2019-07-19] MEDS: IPRATROPIUM NEB FS 0.5 MG/2.5 ML AMPUL.NEB IH SCH ×4 (01:06→19:28)
--- NOTE | 2019-07-19 05:41 | NUR ---
RT NOTES TRACH TUBE IN PLACE, PATENT, AND SECURED WITH TRACH TIE. ALARMS ON AND AUDIBLE. VENT PLUGGED IN TO THE RED OUTLET. BACK TRACH AND AMBU BAG BY THE BEDSIDE. NO SIGNS OF ANY DISTRESS AT THIS TIME. Addendum: 07/19/19 at 0541 by JERMAN GONZALEZ RT Amended: Links added.
--- NOTE | 2019-07-19 06:14 | NUR ---
PRODUCTION SUPERINTENDENT NOTE PT REMAINS IN STABLE CONDITION. PT NOTED TO BE ON VENT, TOLERATING SETTINGS WELL. NO SIGNS OF SOB OR DISTRESS, NO INDICATIONS OF PAIN. TELE MONITOR: SR 90. PT NOTED WITH NEPHROSTOMY TUBE DRAINING CLEAR YELLOW URINE, AND PARK DRAINING CLEAR YELLOW URINE. PT REMAINS NPO WITH BO MIDLINE INFUSING D5 1/2 NS @ 75 ML/HR. ALL CURRENT NEEDS ATTENDED TO. BED LOW, LOCKED, UPPER RAILS IN PLACE. PT REPOSITIONED Q2H.WILL CONT TO CLOSELY MONITOR AND ENDORSE TO NEXT SHIFT FOR LIZETH.
[2019-07-19] MEDS: BLOOD SUGAR DIAGNOSTIC 1 EACH STRIP IN SCH ×4 (06:32→21:53)
[2019-07-19 07:10] LABS: BASOPHILS % (AUTO) 0.4 % (0.0-2.0); EOSINOPHILS % (AUTO) 4.1 % (0.0-6.0); HEMATOCRIT 22 % (39-51); HEMOGLOBIN 7.1 g/dL (13.5-17.5); LYMPHOCYTES # (AUTO) 2.6 /CMM (0.8-4.8); LYMPHOCYTES % (AUTO) 24.1 % (20.0-44.0); MEAN CORPUSCULAR HGB CONC 33 g/dl (31.0-36.0); MEAN CORPUSCULAR VOLUME 95 fL (80-96); MONOCYTES % (AUTO) 9.6 % (2.0-12.0); NEUTROPHILS # (AUTO) 6.6 /CMM (1.8-8.9); NEUTROPHILS % (AUTO) 61.8 % (43.0-81.0); PLATELET COUNT (AUTO) 311 /CMM (150-450); RED BLOOD CELL COUNT(AUTO) 2.26 MIL/uL (4.5-6.0); WHITE BLOOD COUNT (AUTO) 10.7 K/uL (4.3-11.0)
[2019-07-19 07:26] LABS: CALCIUM, SERUM 8.9 mg/dL (8.5-10.1); CREATININE 1.4 mg/dL (0.6-1.3); MAGNESIUM 1.7 mg/dL (1.8-2.4); POTASSIUM 3.3 mmol/L (3.5-5.1)
--- NOTE | 2019-07-19 07:40 | NUR ---
SHIP'S OFFICER OPENING NOTES RECEIVED PATIENT ON BED, OBTUNDED. ON VENTILATOR SETTING AC 12, TV 500, PEEP 5, O2 40% WITH PORTEX 8. BOTH LUNGS DIMINISHED WITH CRACKLES AUSCULTATED. NO SIGNS OF PAIN AND DISCOMFORT. ABDOMEN SOFT AND NON DISTENDED WITH ACTIVE BOWEL SOUNDS, WITH PRESENCE OF NEPHROSTOMY AND FC WITH YELLOW OUTPUT. SKIN WARM TO TOUCH AND DRY. REPOSITIONED TO RIGHT SIDE LYING POSITION. CURRENTLY ON NPO WITH NO TF, LAST BLOOD SUGAR 88 WITH NO INSULIN COVERAGE. TELE MONITOR SHOWS SINUS RHYTHM 87. RIGHT UPPER ARM MIDLINE PATENT IN FLUSHING, NO S/SX OF INFILTRATION WITH D5 1/2 NS AT 75 ML/HR. BED IN LOCKED POSITION, SEMI FOWLERS HIGH. MONITOR CLOSELY. WILL CONTINUE TO EVALUATE CARE.
[2019-07-19] MEDS: Magnesium 1GM/D5W 100ML PREMIX 100 ML IV SCH ×2 (08:19→09:22)
[2019-07-19] MEDS: HEPARIN SODIUM, PORCINE 5000 UNITS/1 ML VIAL SQ SCH ×3 (09:00→21:00)
--- NOTE | 2019-07-19 09:45 | NUR ---
M/S RN NOTES PAGED ISELA BRUMFIELD REGARDING HEMOGLOBIN 7.1, VALPROIC ACID 250 MG/5ML ORDER VIA GTUBE BUT PT CURRENTLY ON NPO AND HEPARIN 5000 UNIT ORDER. WAITING FOR NEW ORDERS.
--- NOTE | 2019-07-19 10:20 | NUR ---
M/S RN NOTES PT SEEN BY CHARGE NURSE EDUAR. NO RESPONSE FROM OCTAVIANO PLATING TANK OPERATOR AT THIS TIME, PER CHARGE NURSE, OKAY TO GIVE MEDICATION VIA GTUBE. HOLD HEPARIN.
[2019-07-19] MEDS: VALPROIC ACID 250 MG/5 ML UDC GT SCH ×2 (10:28→20:34)
[2019-07-19] MEDS: PROSOURCE / PROSTAT (PYXIS) 30 ML UDC GT SCH (10:28)
[2019-07-19] MEDS: ACETAMINOPHEN 650 MG/20.3 ML UDC GT SCH (10:28)
[2019-07-19] MEDS: LACTOBACILLUS RHAMNOSUS GG 1 EACH CAP.SPRINK GT SCH ×3 (10:28→16:06)
[2019-07-19] MEDS: DOCUSATE SODIUM LIQ 100 MG/10 ML UDC GT SCH ×2 (10:28→16:06)
[2019-07-19] MEDS: METOPROLOL TARTRATE 50 MG TABLET GT SCH ×2 (10:28→20:35)
[2019-07-19] MEDS: CHLORHEXIDINE GLUCONATE 15 ML UDC MM SCH ×2 (10:28→16:06)
[2019-07-19] MEDS: ASCORBIC ACID 500 MG TABLET GT SCH (10:29)
[2019-07-19] MEDS: POTASSIUM CL. PREMIX PERIPHER. 50 ML IV SCH ×4 (10:29→13:40)
[2019-07-19] MEDS: CALCIUM CARBONATE (1250) 500 MG TABLET GT SCH (10:29)
[2019-07-19] MEDS: PANTOPRAZOLE 40 MG/PACK PACK GT SCH ×2 (10:29→20:35)
[2019-07-19] MEDS: BICALUTAMIDE 50 MG TABLET PO SCH (10:29)
--- NOTE | 2019-07-19 10:53 | NUR ---
M/S RN NOTES PT TOLERATED G-TUBE MEDICATION ADMINISTRATION. PATENCY VERIFIED. NO RESIDUAL NOTED. CLEANSE G-TUBE SITE COVER WITH NEW DRY DRESSING. PT UO WITH NO BLOOD. NO BM AT THIS TIME. PT HOB ELEVATED, NO SOB NOTED. WILL CONTINUE TO MONITOR.
--- NOTE | 2019-07-19 11:52 | NUR ---
M/S RN NOTES ORDER CLARIFICATION WITH OCTAVIANO JACKET CHANGER COMMUNICATED WITH CHARGE NURSE EDUAR. PT TO RESUME TUBE FEEDING PER DIETARY RECOMMENDED, GLUCERNA 1.2 AT 25 ML/HR TO 55 ML/HR TOLERATED X24 HOURS. ADDITIONAL WATER FLUSH 200 ML EVERY 6 HOURS. NO BLOOD TRANSFUSION TODAY WITH HGB 7.1, POSSIBLE BLOOD TRANSFUSION TOMORROW 07/20/2019. HOLD GI CONSULT. CAN GIVE HEPARIN 5000 UNITS SQ Q12 ORDERED. ORDER READ BACK, NOTED AND CARRIED OUT.
[2019-07-19] MEDS ORDERED: GLUCERNA 1.2 1,000 ML BOTTLE GT SCH (12:00)
--- NOTE | 2019-07-19 12:20 | NUR ---
M/S RN NOTES STARTED GLUCERNA 1.2 GTUBE FEEDING AT 25 ML/HR. 20 ML RESIDUAL NOTED FROM MEDICATION GIVEN, PATENT UPON AUSCULTATION. HOB REMAINED ELEVATED. WILL CONTINUE TO MONITOR TOLERANCE OF GTUBE FEEDING.
--- NOTE | 2019-07-19 14:15 | NUR ---
M/S RN NOTES SPONGE BATH GIVEN TO PATIENT, TOLERATED WELL. 40 CC RESIDUAL NOTED WITH G-TUBE RUNNING 25 ML/HR. PATENCY VERIFIED. WILL CONTINUE TO MONITOR.
--- NOTE | 2019-07-19 16:25 | NUR ---
M/S RN NOTES ADMINISTERED 5PM MEDICATION, PATENCY VERIFIED UPON AUSCULTATION WITH 50 CC RESIDUAL FOR GLUCERNA 1.2 RUNNING 25ML/HR. HOB KEPT ELEVATED
--- NOTE | 2019-07-19 17:30 | NUR ---
M/S RN NOTES RESIDUAL NOTED 30 CC, GTUBE IN PLACED. HOB ELEVATED.BM X1 SOFT BROWN. PT REPOSITIONED TO SUPINE. CONTINUE TO MONITOR
--- NOTE | 2019-07-19 18:19 | NUR ---
M/S RN CLOSING NOTES PT ON BED, ORIENTATION OBTUNDED, VENTILATOR DEPENDENT. BOTH LUNGS AUSCULTATED WITH RONCHI,CRACKLES, DIMINISHED IN SOUND, HOB ELEVATED AT ALL TIMES. ABD SOFT AND NON DISTENDED WITH ACTIVE BOWEL SOUNDS, BMX1 SOFT BROWN. FC AND NEPHROSTOMY OUTPUT OF CLEAR YELLOW URINE, NO S/SX ON BLEEDING NOTED. PAIN NOT PRESENT WITH FLACC ASSESSMENT. SKIN WARM TO TOUCH AND DRY. OFFLOAD BOTH HEELS. RIGHT UPPER ARM MIDLINE PATENT IN FLUSHING RUNNING D5 1/2 NS AT 75 ML/HR, POTASSIUM AND MAGNESIUM REPLACED ORDERED. TUBE FEEDING OF GLUCERNA 1.2 RUNNING 25 ML/HR WITH 30-50 CC RESIDUAL, G-TUBE SITE IN PLACED. TELE MONITOR SR 82. ALL CARE ATTENDED. BED ON LOCKED POSITION. ENDORSED CARE TO NEXT SHIFT.
--- NOTE | 2019-07-19 19:20 | NUR ---
RN OPENING NOTES RECEIVED PATIENT IN STABLE CONDITION. PATIENT ON VENT, TOLERATING CURRENT SETTINGS WELL. NO SIGNS OF RESPIRATORY DISTRESS. NO SHORTNESS OF BREATH NOTED. NO SIGNS OF FACIAL GRIMACING INDICATING PAIN OR DISCOMFORT AT THIS TIME. ON TELE MONITOR: SR. PATIENT WITH NEPHROSTOMY TUBE DRAINING CLEAR YELLOW URINE. PARK DRAINING CLEAR YELLOW URINE. GTUBE PATENCY VERIFIED UPON AUSCULATION. PATIENT ON GTUBE FEEDING AT 25 ML/HR. HOB KEPT ELEVATED. BO MIDLINE INFUSING D5 1/2 NS @ 75 ML/HR. SAFETY PRECAUTIONS IMPLEMENTED; CALL LIGHT WITHIN REACH, BED LOWEST POSITION, BED LOCKED, SIDE RAILS UP X2. WILL CLOSELY MONITOR PATIENT.
--- NOTE | 2019-07-19 19:21 | NUR ---
RN NOTES NOTED WITH RESIDUAL OF 30 CC. WILL CONTINUE TO MONITOR.
[2019-07-19] MEDS: IV D5/0.45 NACL 1,000 ML IV PRN (20:00)
[2019-07-19] MEDS: AMLODIPINE BESYLATE 5 MG TABLET GT SCH (21:46)
[2019-07-19] MEDS: TAMSULOSIN 0.4 MG CAP.SR.24H GT SCH (21:46)
[2019-07-19] MEDS: INSULIN GLARGINE, 100 UNIT/ML CARTRIDGE SQ SCH (21:52)
--- NOTE | 2019-07-19 21:53 | NUR ---
RN NOTES 2152 HEPARIN NOT ADMINISTERED. HEMOGLOBIN CURRENTLY 7.1. 2100 DOSE OF HEPARIN HELD. WILL CONTINUE TO MONITOR.
[2019-07-19] MEDS: INSULIN REGULAR, HUMAN 100 UNIT/ML 3 ML VIAL SQ PRN (21:54)
[2019-07-20] VITALS: BP 118/73
[2019-07-20 00:25] VITALS: BP 118/73
[2019-07-20] MEDS: ALBUTEROL FS 2.5 MG/3 ML VIAL.NEB IH SCH ×4 (01:28→19:47)
[2019-07-20] MEDS: IPRATROPIUM NEB FS 0.5 MG/2.5 ML AMPUL.NEB IH SCH ×4 (01:28→19:47)
[2019-07-20 04:00] VITALS: BP 120/70
[2019-07-20 04:08] VITALS: BP 120/70
[2019-07-20 06:24] LABS: BASOPHILS # (AUTO) 0.1 /CMM (0.0-0.2); BASOPHILS % (AUTO) 0.8 % (0.0-2.0); EOSINOPHILS % (AUTO) 4.2 % (0.0-6.0); HEMATOCRIT 23 % (39-51); HEMOGLOBIN 7.6 g/dL (13.5-17.5); LYMPHOCYTES # (AUTO) 2.8 /CMM (0.8-4.8); LYMPHOCYTES % (AUTO) 30.8 % (20.0-44.0); MEAN CORPUSCULAR HGB CONC 33 g/dl (31.0-36.0); MEAN CORPUSCULAR VOLUME 95 fL (80-96); MONOCYTES # (AUTO) 0.9 /CMM (0.1-1.30); MONOCYTES % (AUTO) 9.4 % (2.0-12.0); NEUTROPHILS % (AUTO) 54.8 % (43.0-81.0); PLATELET COUNT (AUTO) 347 /CMM (150-450); RED BLOOD CELL COUNT(AUTO) 2.44 MIL/uL (4.5-6.0); WHITE BLOOD COUNT (AUTO) 9.1 K/uL (4.3-11.0)
[2019-07-20 06:47] LABS: CALCIUM, SERUM 8.7 mg/dL (8.5-10.1); CREATININE 1.3 mg/dL (0.6-1.3); PHOSPHORUS 2.4 mg/dL (2.5-4.9); POTASSIUM 3.9 mmol/L (3.5-5.1)
--- NOTE | 2019-07-20 06:52 | NUR ---
RN CLOSING NOTES PATIENT REMAINS IN STABLE CONDITION. PATIENT TOLERATING CURRENT VENT SETTINGS WELL. NO SIGNS OF RESPIRATORY DISTRESS. NO SHORTNESS OF BREATH NOTED. NO SIGNS OF FACIAL GRIMACING INDICATING PAIN OR DISCOMFORT AT THIS TIME. ON TELE MONITOR: SR...... PATIENT NOTED WITH NEPHROSTOMY TUBE DRAINING CLEAR YELLOW URINE. PARK CATHETER DRAINING CLEAR YELLOW URINE. GTUBE PATENCY VERIFIED UPON AUSCULATION WITH 30-50CC RESIDUAL FOR GLUCERNA. PATIENT ON GTUBE FEEDING AT 25 ML/HR. HOB KEPT ELEVATED. BO MIDLINE INFUSING D5 1/2 NS @ 75 ML/HR. ALL NEEDS ATTENDED TO. PATIENT REPOSITIONED EVERY 2 HOURS. WOUND CARE DONE. SAFETY PRECAUTIONS IMPLEMENTED; CALL LIGHT WITHIN REACH, BED LOWEST POSITION, BED LOCKED, UPPER SIDE RAILS UP. WILL CONTINUE TO CLOSELY MONITOR AND ENDORSE TO DAYSHIFT NURSE FOR CONTINUITY OF CARE.
[2019-07-20 07:30] VITALS: BP 115/71
--- NOTE | 2019-07-20 08:00 | NUR ---
MS RN NOTES PATIENT IN BED RESTING. PATIENT IS OBTUNDED VENT DEPENDENT. VENT SETTINGS NOTED. PARK CATH INTACT PATENT. PATIENT WITH NEPHROSTOMY TUBE INTACT PATENT. MIDLINE INTACT PATENT. BED IN LOW LOCKED POSITION. CALL LIGHT WITHIN REACH. WILL CONTINUE TO MONITOR.
--- NOTE | 2019-07-20 08:45 | NUR ---
WOUND CARE CONSULT: PT PRESENTS WITH POSTERIOR HEAD WOUND, SACRAL SCARRING AND MULTIPLE AREAS OF DISCOLORATION, SCARRING, BILATERAL HEEL INTACT DEEP TISSUE INJURIES, PRESENT ON ADMISSION. RECOMMEND DPM CONSULT AND SURGICAL CONSULT. DR BEARDEN NOTIFIED OF DPM CONSULT REQUEST AND DR JENNA ONOFRE NOTIFIED OF SURGICAL CONSULT REQUEST FOR HEAD. RECOMMENDATIONS MADE FOR SKIN PROTECTION AND WOUND CARE. DISCUSSED WITH NURSING STAFF. DEFER TO DPM FOR LOWER EXTREMITIES. WILL SEE PRN. LEWIS IN AGREEMENT WITH PLAN OF CARE. Addendum: 07/20/19 at 0848 by VANESSA CONTRERAS WNDNU Amended: Links added.
[2019-07-20] MEDS ORDERED: HYDROGEL DRESSING 90 GM TUBE TP PRN (09:00)
[2019-07-20] MEDS: HEPARIN SODIUM, PORCINE 5000 UNITS/1 ML VIAL SQ SCH (09:00)
[2019-07-20] MEDS ORDERED: HYDROGEL DRESSING 90 GM TUBE TP SCH (09:00)
[2019-07-20] MEDS: BICALUTAMIDE 50 MG TABLET PO SCH (09:29)
[2019-07-20] MEDS: PROSOURCE / PROSTAT (PYXIS) 30 ML UDC GT SCH (09:30)
[2019-07-20] MEDS: VALPROIC ACID 250 MG/5 ML UDC GT SCH (09:30)
[2019-07-20] MEDS: ACETAMINOPHEN 650 MG/20.3 ML UDC GT SCH (09:31)
[2019-07-20] MEDS: DOCUSATE SODIUM LIQ 100 MG/10 ML UDC GT SCH ×2 (09:31→17:00)
[2019-07-20] MEDS: CHLORHEXIDINE GLUCONATE 15 ML UDC MM SCH ×2 (09:31→18:07)
[2019-07-20] MEDS: METOPROLOL TARTRATE 50 MG TABLET GT SCH (09:33)
[2019-07-20] MEDS: CALCIUM CARBONATE (1250) 500 MG TABLET GT SCH (09:33)
[2019-07-20] MEDS: PANTOPRAZOLE 40 MG/PACK PACK GT SCH (09:34)
[2019-07-20] MEDS: ASCORBIC ACID 500 MG TABLET GT SCH (09:34)
[2019-07-20] MEDS: LACTOBACILLUS RHAMNOSUS GG 1 EACH CAP.SPRINK GT SCH ×3 (09:34→18:07)
[2019-07-20] MEDS: BLOOD SUGAR DIAGNOSTIC 1 EACH STRIP IN SCH ×3 (09:35→18:03)
[2019-07-20] MEDS ORDERED: NEUTRA PHOS 1 POWD.PACKET GT ONE (11:30)
[2019-07-20] MEDS: IV D5/0.45 NACL 1,000 ML IV PRN (15:04)
--- NOTE | 2019-07-20 19:21 | NUR ---
BRASS BUFFER NOTES PATIENT IN BED RESTING . VENT SETTING NOTED. ALL DUE MEDICATIONS ADMINISTERED, ALL NEEDS MET. PATIENT AWAITING FOR DISCHARGE EMT LIFE GUARD. REPORT GIVEN TO TAMIKA NICOLE AT [facility]. VITAL SIGNS STABLE. ENDORSED DISCHARGE TO ОЛЕГ REYES RN.
--- NOTE | 2019-07-20 19:55 | NUR ---
SCREENING NURSE NOTES RECEIVED PATIENT IN BED RESTING . VENT SETTINGS TOLERATING WELL, NO SIGNS OF ACUTE RESPIRATORY OR CARDIAC DISTRESS NOTED. TELE MONITOR READS SINUS 90s, PATIENT AWAITING FOR DISCHARGE EMT FINISH CARPENTER. REPORT GIVEN TO TAMIKA NICOLE AT [facility] PER AM NURSE REPORT, VITAL SIGNS STABLE. RECEIVED DISCHARGE REPORT FROM ОЛЕГ REYES RN. WILL MONITOR ACCORDINGLY.
[2019-07-20 20:10] VITALS: BP 112/70
--- NOTE | 2019-07-20 20:55 | NUR ---
TINTER PHOTOGRAPH NOTES PICKED UP BY [facility] EMT, REPORT GIVEN, VENT SETTINGS TOLERATING WELL, NO SIGNS OF DISTRESS, RIGHT UPPER ARM MIDLINE REMOVED, GT INTACT AND PATENT, NEPROSTOMY TUBE DRESSING INTACT, CLEAN AND DRY, PARK CATHETER IN TACT AND PATENT DRAINING TO A CLEAR YELLOW URINE OUTPUT, ALL NEEDS ATTENDED, LEFT INT THE UNIT AT 2049, TRANSPORTED OUT IN STABLE CONDITION.
== END 2019-07-20 20:50 | DRG 500 ==
LOC: ER 10:51 → TELE 13:14
PROVIDERS: ADMIT Hospitalist; ATTEND Hospitalist
PROC: 30233N1 Transfusion of Nonautologous Red Blood Cells into Peripheral Vein, Percutaneous Approach (ICD-10-PCS; principal; 2019-07-17)
PROC: 5A1945Z Respiratory Ventilation, 24-96 Consecutive Hours (ICD-10-PCS; principal; 2019-07-17)
DX: C61 Malignant neoplasm of prostate (principal); Z99.11 Dependence on respirator [ventilator] status; R40.3 Persistent vegetative state; J96.10 Chronic respiratory failure, unspecified whether with hypoxia or hypercapnia; D68.59 Other primary thrombophilia; R13.10 Dysphagia, unspecified; C79.51 Secondary malignant neoplasm of bone; E11.22 Type 2 diabetes mellitus with diabetic chronic kidney disease; E83.42 Hypomagnesemia; E11.51 Type 2 diabetes mellitus with diabetic peripheral angiopathy without gangrene; I12.9 Hypertensive chronic kidney disease with stage 1 through stage 4 chronic kidney disease, or unspecified chronic kidney disease; N18.9 Chronic kidney disease, unspecified; K21.9 Gastro-esophageal reflux disease without esophagitis; I25.10 Atherosclerotic heart disease of native coronary artery without angina pectoris; E87.6 Hypokalemia; Z93.6 Other artificial openings of urinary tract status; Z93.1 Gastrostomy status; Z74.01 Bed confinement status; Z79.4 Long term (current) use of insulin; E87.0 Hyperosmolality and hypernatremia; E86.1 Hypovolemia; D53.9 Nutritional anemia, unspecified; G40.909 Epilepsy, unspecified, not intractable, without status epilepticus; L89.890 Pressure ulcer of other site, unstageable; L90.5 Scar conditions and fibrosis of skin; M24.571 Contracture, right ankle; M24.572 Contracture, left ankle; D50.9 Iron deficiency anemia, unspecified; D63.0 Anemia in neoplastic disease; F09 Unspecified mental disorder due to known physiological condition; R91.8 Other nonspecific abnormal finding of lung field
CPT/HCPCS: 31720; 36415; 71045-TC; 80048-TC; 80053-TC; 80061-TC; 80076-TC; 82272-TC; 82962-TC; 83735-TC; 84100-TC; 84443-TC; 85025-TC; 85730-TC; 86850-TC; 86921-TC; 87081-TC; 94002-TC; 94003-TC; 94760-TC; 94762-TC; A4217; A4623; A6248; A6403; G0378; J1644; J1815; J3475; J3480; J3490; J7030; J7050; P9016-BL

== ENCOUNTER 2019-07-29 06:56 | Inpatient (IN) | payer MEDICAID ==
[2019-07-29] VITALS (13 sets, daily range): BP systolic 92–112; BP diastolic 48–82
[~2019-07-29] VITALS: Ht 165.1 cm; Wt 73.9 kg
[~2019-07-29 06:56] MED LIST changes: +BICA50TA49 GT; +CHLO473M3 MM; -NUT.237L45 NG; -PIPE3.379 IV
--- NOTE | 2019-07-29 07:10 | NUR ---
BIBA FOR EVALUATION OF HIGH HR, AND FEVER. PT OBTUNDED. W/ GT , F/C , TRACH AND R NEPHROSTOMY TUBE IN PLACE. RFA 20G IV LINE STARTED , BLOOD DRAWN INCLUDING BLOOD C&S AND SENT TO THE LAB. URINE COLLECTED AND SENT TO THE LAB. RECTAL TEMP: 101.3. WILL CONT TO MONITOR,
[2019-07-29 07:20] LABS: BASOPHILS # (AUTO) 0.1 /CMM (0.0-0.2)
[2019-07-29 07:24] LABS: BASOPHILS % (AUTO) 0.4 % (0.0-2.0); EOSINOPHILS % (AUTO) 0.5 % (0.0-6.0); LYMPHOCYTES # (AUTO) 2.4 /CMM (0.8-4.8); LYMPHOCYTES % (AUTO) 13.2 % (20.0-44.0); MEAN CORPUSCULAR HGB CONC 32 g/dl (31.0-36.0); MEAN CORPUSCULAR VOLUME 97 fL (80-96); MONOCYTES # (AUTO) 2.3 /CMM (0.1-1.30); MONOCYTES % (AUTO) 12.8 % (2.0-12.0); NEUTROPHILS # (AUTO) 13.1 /CMM (1.8-8.9); NEUTROPHILS % (AUTO) 73.1 % (43.0-81.0); PLATELET COUNT (AUTO) 404 /CMM (150-450); RED BLOOD CELL COUNT(AUTO) 2.05 MIL/uL (4.5-6.0)
[2019-07-29 07:30] LABS: HEMATOCRIT 20 % (39-51); HEMOGLOBIN 6.5 g/dL (13.5-17.5)
[2019-07-29] MEDS ORDERED: ACETAMINOPHEN 650 MG/SUPP.RECT RC ONE ×2 (07:30)
[2019-07-29] MEDS ORDERED: VANCOMYCIN 1 GM in IV D5W 250 ML IV ONE (07:30)
[2019-07-29] MEDS ORDERED: IV NS 0.9% 1,000 ML BAG IV ONE (07:30)
[2019-07-29] MEDS ORDERED: LEVOFLOXACIN 750 MG /D5W 150ML 150 ML IV ONE (07:30)
[2019-07-29] MEDS ORDERED: PIPERACILLIN /TAZOBACTAM 3.375 G in IV D5W 50 ML IV ONE (07:30)
--- NOTE | 2019-07-29 07:30 | NUR ---
VENT SETTINGS: A/C RATE 12 VT 500 02 40% PEEP 5
[2019-07-29 07:32] LABS: ALANINE AMINOTRANSFERASE 23 U/L (12-78); ALBUMIN 1.5 g/dL (3.4-5.0); ALKALINE PHOSPHATASE 357 U/L (46-116); ASPARTATE AMINOTRANSFERASE 93 U/L (15-37); BILIRUBIN,DIRECT 0.1 mg/dL (0.0-0.2); BILIRUBIN,TOTAL 0.2 mg/dL (0.2-1.0); CALCIUM, SERUM 9.3 mg/dL (8.5-10.1); CARBON DIOXIDE 22 mmol/L (21-32); CHLORIDE 102 mmol/L (98-107); CREATININE 2.2 mg/dL (0.6-1.3); GLUCOSE 198 mg/dL (74-106); POTASSIUM 4.8 mmol/L (3.5-5.1); SODIUM SERUM 132 mmol/L (136-145)
[2019-07-29 07:37] LABS: UREA NITROGEN, BLOOD 84 mg/dL (7-18)
[2019-07-29 08:06] LABS: APPEARANCE,URINE Clear (CLEAR); BILIRUBIN,URINE Negative (NEGATIVE); BLOOD, URINE Large Ery/uL (NEGATIVE); COLOR,URINE Yellow (YELLOW); KETONES,URINE Negative (NEGATIVE); LEUKOCYTE ESTERASE ,URINE Large (NEGATIVE); NITRITE, URINE Negative (NEGATIVE); PROTEIN,URINE >=300 mg/dl (NEGATIVE); UGLUCOSE Negative (NEGATIVE); UROBILINOGEN,URINE 0.2 EU/dL (0.2)
[2019-07-29 08:18] LABS: BACTERIA,URINE Few /HPF (None Seen); SQUAMOUS EPITHELIAL CELL,UR Few /HPF (None Seen)
[2019-07-29 08:31] LABS: BAND % (MANUAL) 11 % (0.0-5.0); LYMPHOCYTES % (MANUAL) 16 % (16-48); METAMYELOCYTES % 1 % (0-0); MONOCYTES % (MANUAL) 10 % (0-11.0); NEUTROPHILS % (MANUAL) 62 (42-76)
--- NOTE | 2019-07-29 10:07 | NUR ---
ROOM 115-1 ASSIGNED
--- NOTE | 2019-07-29 10:14 | NUR ---
REPORT GIVEN TO KIERRA NICOLE. PT AWAITING TRANSFER TO FLOOR.
--- NOTE | 2019-07-29 10:30 | NUR ---
RN REPORT FROM ER NURSE PATIENT OBTUNDED, VENTILATOR DEPENDENT VITALS WNL BLOOD PRESSURE ON ADMISSION 104/68 HR 100. O2 100% NO FEVER NOTED. PATIENT WOOUND PICS TAKEN AND PLACED IN CHART, WOUND CARE PLAN ORDERED, WOUND CONSULT ORDERED. MD ORDER BLOOD TRANSFUSION X2 UNITS. RN ADMINITERED 1 UNIT PATIENT TOLERATED WELL, RN TO ENDORSE TO NIGHT NURSE TO TRANSFUSE 2ND UNIT. NPO NO GTUBE AT THIS TIME. [id number] ORDER CONSULT FROM GI INFECTIOUS [id number] AND NEPROHOLOGIST. [id number] HOSPITALIZATION AT THIS TIME.
[2019-07-29] MEDS ORDERED: MEROPENEM 500 MG in IV NS 0.9% 50 ML IV ONE (13:30)
[2019-07-29] MEDS ORDERED: Z GUARD REMEDY 2 OZ OINT TP PRN (13:30)
[2019-07-29] MEDS: IPRATROPIUM NEB FS 0.5 MG/2.5 ML AMPUL.NEB IH SCH ×2 (13:30→19:53)
[2019-07-29] MEDS ORDERED: DEXTROSE 50%-WATER 50 ML DISP.SYRIN IV PRN (13:30)
[2019-07-29] MEDS ORDERED: ONDANSETRON HCL/PF 4 MG/2 ML VIAL IVP PRN (13:30)
[2019-07-29] MEDS: ALBUTEROL FS 2.5 MG/3 ML VIAL.NEB IH SCH ×2 (13:30→19:53)
[2019-07-29] MEDS ORDERED: FEE PK DOSING 1 MIN EA MC ONE (13:46)
[2019-07-29] MEDS: VALPROIC ACID 250 MG/5 ML UDC GT SCH ×2 (15:57→21:07)
[2019-07-29] MEDS: CHLORHEXIDINE GLUCONATE 15 ML UDC MM SCH (17:01)
[2019-07-29] MEDS: BLOOD SUGAR DIAGNOSTIC 1 EACH STRIP IN SCH ×2 (18:12→22:43)
[2019-07-29] MEDS: HYDROCODONE/APAP 5/325MG 1 EACH TABLET PO PRN (18:15)
--- NOTE | 2019-07-29 19:07 | NUR ---
RN CLOSING NOTE PATIENT OBTUNDED, VENTILATOR DEPENDENT VITALS WNL BLOOD PRESSURE ON ADMISSION 104/68 HR 100. O2 100% NO FEVER NOTED. PATIENT WOOUND PICS TAKEN AND PLACED IN CHART, WOUND CARE PLAN ORDERED, WOUND CONSULT ORDERED. MD ORDER BLOOD TRANSFUSION X2 UNITS. RN ADMINITERED 1 UNIT PATIENT TOLERATED WELL, RN TO ENDORSE TO NIGHT NURSE TO TRANSFUSE 2ND UNIT. NPO NO GTUBE AT THIS TIME. [id number] ORDER CONSULT FROM GI INFECTIOUS [id number] AND NEPROHOLOGIST. [id number] HOSPITALIZATION AT THIS TIME.
--- NOTE | 2019-07-29 20:09 | NUR ---
albino rn notes received pts in bed with eyes open , vent non verbal on st -130 on the monitor , sating 100% no sob no distress noted pts on vent dependent ac setting well tolerated . v/s stable afebrile , hob elevated for aspiration precaution, pts on npo status,as ordered . 2nd unit of prbc was initiated and double check with another rn . prbc started at 20:09hrs no ase noted . v/s stable afebrile, all needs attended too kept pts clean dry and comfortable, will continue to monitor pts.
[2019-07-29] MEDS: TAMSULOSIN 0.4 MG CAP.SR.24H GT SCH (21:08)
[2019-07-29] MEDS: INSULIN GLARGINE, 100 UNIT/ML CARTRIDGE SQ SCH (22:00)
[2019-07-29] MEDS: INSULIN REGULAR, HUMAN 100 UNIT/ML 3 ML VIAL SQ PRN (22:42)
[2019-07-30] VITALS: BP_SYST 109; BP_SYST 98; BP_DIAS 50; BP_DIAS 68
--- NOTE | 2019-07-30 00:02 | NUR ---
albino rn notes 2nd prbc , completed ,with no ase noted , will continue to monitor.
[2019-07-30] MEDS: IV NS 0.9% 1,000 ML IV PRN (00:45)
[2019-07-30] MEDS: MEROPENEM 500 MG in IV NS 0.9% 100 ML IV SCH ×2 (00:47→12:10)
[2019-07-30] MEDS: ALBUTEROL FS 2.5 MG/3 ML VIAL.NEB IH SCH ×4 (01:14→19:30)
[2019-07-30] MEDS: IPRATROPIUM NEB FS 0.5 MG/2.5 ML AMPUL.NEB IH SCH ×4 (01:14→19:58)
[2019-07-30 04:00] VITALS: BP 120/63
[2019-07-30] MEDS: HYDROCODONE/APAP 5/325MG 1 EACH TABLET PO PRN (05:11)
[2019-07-30] MEDS: BLOOD SUGAR DIAGNOSTIC 1 EACH STRIP IN SCH ×4 (05:21→23:02)
[2019-07-30] MEDS: INSULIN REGULAR, HUMAN 100 UNIT/ML 3 ML VIAL SQ PRN ×4 (05:24→23:02)
--- NOTE | 2019-07-30 05:49 | NUR ---
albino rn notes blood sugar for 6am is 110 no coverage given per sliding scale given.
[2019-07-30 06:34] LABS: BASOPHILS % (AUTO) 0.1 % (0.0-2.0); EOSINOPHILS % (AUTO) 0.4 % (0.0-6.0); HEMATOCRIT 27 % (39-51); LYMPHOCYTES # (AUTO) 1.1 /CMM (0.8-4.8); LYMPHOCYTES % (AUTO) 5.6 % (20.0-44.0); MEAN CORPUSCULAR HGB CONC 33 g/dl (31.0-36.0); MEAN CORPUSCULAR VOLUME 93 fL (80-96); MONOCYTES # (AUTO) 2.9 /CMM (0.1-1.30); MONOCYTES % (AUTO) 14.5 % (2.0-12.0); NEUTROPHILS # (AUTO) 15.8 /CMM (1.8-8.9); NEUTROPHILS % (AUTO) 79.4 % (43.0-81.0); PLATELET COUNT (AUTO) 302 /CMM (150-450); RED BLOOD CELL COUNT(AUTO) 2.94 MIL/uL (4.5-6.0); WHITE BLOOD COUNT (AUTO) 19.9 K/uL (4.3-11.0)
[2019-07-30 06:45] LABS: CALCIUM, SERUM 9.2 mg/dL (8.5-10.1); CARBON DIOXIDE 18 mmol/L (21-32); CHLORIDE 106 mmol/L (98-107); GLUCOSE 125 mg/dL (74-106); MAGNESIUM 2.1 mg/dL (1.8-2.4); PHOSPHORUS 3.6 mg/dL (2.5-4.9); POTASSIUM 4.4 mmol/L (3.5-5.1); SODIUM SERUM 136 mmol/L (136-145); UREA NITROGEN, BLOOD 64 mg/dL (7-18)
--- NOTE | 2019-07-30 07:15 | NUR ---
TELE TD RN OPENING NOTE: RECEIVED PATIENT IN BED, AWAKE AND OBTUNDED. APPEARS RELAXED AND COMFORTABLE, NO PAIN NOR ACUTE DISTRESS NOTED. ON MECHANICAL VENTILATION, TRACH TUBE OF PORTEX 8 WITH SETTINGS OF AC12, TV500, OPZ812% AND PEEP5. TOLERATING WELL. WITH GTUBE FR30. PLACEMENT VERIFIED, TUBE PATENT. WITH IV SITE RAC AND ALICE BOTH WITH G20. SITES CLEAN, SECURE AND PATENT. WITH IV NS @75CC/HR INFUSING AT LEFT ARM. AND TOLERATING WELL. SINUS TACHYCARDIA NOTED VIA CARDIAC MONITORING @ 128BPM. WITH NEPHROSTOMY TUBE AND PARK CATHETER. DRAINING YELLOW URINE. BED IN LOW POSITION, SEMI-MORRIS'S AND LOCKED. CALL LIGHT IN REACH. WILL CONTINUE TO MONITOR PATIENT.
[2019-07-30 08:00] VITALS: BP 117/67
--- NOTE | 2019-07-30 08:00 | NUR ---
GERALDINE RN NOTES IN 'S NOTE YESTERDAY,NOTED WITH CONTINUE TUBE FEEDING.CONFIRMED WITH MAIL PROCESSING ASSOCIATE RNREFUGIO.SAID TO CONTINUE THE TUBE FEEDING GLUCERNA 1.2@55CC/HR.
--- NOTE | 2019-07-30 08:20 | NUR ---
RT NOTE PT RECEIVED TRACHED ON MECHANICAL VENTILATION. AMBU BAG/BACK UP TRACH @ BEDSIDE. TX GIVEN, NO ADVERSE REACTIONS NOTED. SX DONE, TRACH SECURED AND PATENT. ALARMS ON AND AUDIBLE. CONT. PULSE OX CONNECTED. NO SOB NOTED. WILL MONITOR. Addendum: 07/30/19 at 0821 by AIDEE THOMPSON RT Amended: Links added.
[2019-07-30 08:23] LABS: LDL 33 mg/dL (0-99); THYROID STIMULATING HORMONE 3.198 uIU/mL (0.358-3.74); TRIGLYCERIDES 160 mg/dL (30-150)
[2019-07-30] MEDS: VANCOMYCIN 1 GM in IV D5W 250ml IV SCH (08:23)
[2019-07-30] MEDS: PANTOPRAZOLE 40 MG VIAL IV SCH (08:32)
[2019-07-30] MEDS: ASCORBIC ACID 500 MG TABLET GT SCH (08:33)
[2019-07-30] MEDS: CHLORHEXIDINE GLUCONATE 15 ML UDC MM SCH ×2 (08:33→17:47)
[2019-07-30] MEDS: CALCIUM CARBONATE (1250) 500 MG TABLET GT SCH (08:33)
[2019-07-30] MEDS: BICALUTAMIDE 50 MG TABLET GT SCH (08:33)
[2019-07-30] MEDS: VALPROIC ACID 250 MG/5 ML UDC GT SCH ×2 (08:36→21:32)
[2019-07-30] MEDS: PROSOURCE / PROSTAT (PYXIS) 30 ML UDC GT SCH (08:36)
[2019-07-30 09:10] LABS: CHOLESTEROL 33 mg/dL (<200)
[2019-07-30 09:23] LABS: HDL CHOLESTEROL < 10 mg/dL (40-60)
[2019-07-30] MEDS: GLUCERNA 1.2 1,000 ML BOTTLE NG PRN (09:23)
[2019-07-30 09:36] LABS: BAND % (MANUAL) 7 % (0.0-5.0); LYMPHOCYTES % (MANUAL) 9 % (16-48); MONOCYTES % (MANUAL) 14 % (0-11.0); NEUTROPHILS % (MANUAL) 70 (42-76)
[2019-07-30 12:12] LABS: CREATININE, URINE 31.7 MG/DL (30.0-125.0); URINE TOTAL PROTEIN 156.7 mg/dL (0-11.9)
[2019-07-30 14:12] LABS: APPEARANCE,URINE SL CLOUDY (CLEAR); BILIRUBIN,URINE NEGATIVE (NEGATIVE); BLOOD, URINE LARGE Ery/uL (NEGATIVE); COLOR,URINE YELLOW (YELLOW); KETONES,URINE NEGATIVE (NEGATIVE); LEUKOCYTE ESTERASE ,URINE MODERATE (NEGATIVE); NITRITE, URINE NEGATIVE (NEGATIVE); PROTEIN,URINE 100 mg/dl (NEGATIVE); UGLUCOSE NEGATIVE (NEGATIVE); UROBILINOGEN,URINE 0.2 EU/dL (0.2)
[2019-07-30 14:49] LABS: BACTERIA,URINE Few /HPF (None Seen); SQUAMOUS EPITHELIAL CELL,UR Rare /HPF (None Seen)
[2019-07-30 15:30] LABS: EOSINOPHIL,URINE None Seen
[2019-07-30 16:00] VITALS: BP 115/57
[2019-07-30] MEDS: ACETAMINOPHEN 325 MG TABLET PO PRN (17:47)
--- NOTE | 2019-07-30 19:00 | NUR ---
GERALDINE RN CLOSING NOTES PT IS LYING ON BED WITH VENT AND TRACH DEPEND.NO SOB AND ACUTE DISTRESS NOTED.RESPIRATION IS EVEN AND NONLABORED.NO SIGNIFICANT CHANGES NOTED IN THE SHIFT.ENDORSED TO PRODUCT EVANGELIST RN FOR LIZETH.
[2019-07-30 20:00] VITALS: BP_SYST 108; BP_SYST 110; BP_DIAS 59; BP_DIAS 67
--- NOTE | 2019-07-30 20:00 | NUR ---
albino rn notes received pts in bed with eyes open , vent non verbal on st -130 on the monitor , sating 100% no sob no distress noted pts on vent dependent ac setting well tolerated . v/s stable afebrile , hob elevated for aspiration precaution, pts on gt feeding glucerna 1.2 at 55 cc/hr tolerating well .no residual noted . pts on ns at 75cc/hr infusing well. all needs attended too kept pts clean dry and comfortable, will continue to monitor pts.
[2019-07-30] MEDS: TAMSULOSIN 0.4 MG CAP.SR.24H GT SCH (21:32)
--- NOTE | 2019-07-30 22:00 | NUR ---
albino rn notes blood sugar for 6am is 137mg/dl lantus 12 units given as ordered. pts on gt feeding
[2019-07-30] MEDS: INSULIN GLARGINE, 100 UNIT/ML CARTRIDGE SQ SCH (22:39)
[2019-07-31] VITALS (7 sets, daily range): BP systolic 100–133; BP diastolic 60–77
[2019-07-31] MEDS: IPRATROPIUM NEB FS 0.5 MG/2.5 ML AMPUL.NEB IH SCH ×4 (00:57→19:58)
[2019-07-31] MEDS: ALBUTEROL FS 2.5 MG/3 ML VIAL.NEB IH SCH ×4 (00:57→19:58)
[2019-07-31] MEDS: MEROPENEM 500 MG in IV NS 0.9% 100 ML IV SCH ×2 (01:28→13:13)
[2019-07-31] MEDS: IV NS 0.9% 1,000 ML IV PRN ×2 (03:59→23:04)
[2019-07-31] MEDS: INSULIN REGULAR, HUMAN 100 UNIT/ML 3 ML VIAL SQ PRN (06:44)
[2019-07-31] MEDS: BLOOD SUGAR DIAGNOSTIC 1 EACH STRIP IN SCH ×4 (06:47→23:02)
[2019-07-31 07:25] LABS: BILIRUBIN,TOTAL 0.6 mg/dL (0.2-1.0); CALCIUM, SERUM 9.2 mg/dL (8.5-10.1); CREATININE 1.9 mg/dL (0.6-1.3); MAGNESIUM 2.4 mg/dL (1.8-2.4); POTASSIUM 3.8 mmol/L (3.5-5.1); TOTAL PROTEIN, SERUM 9.3 g/dL (6.4-8.2)
[2019-07-31 07:29] LABS: BASOPHILS % (AUTO) 0.1 % (0.0-2.0); EOSINOPHILS % (AUTO) 0.6 % (0.0-6.0); HEMATOCRIT 27 % (39-51); LYMPHOCYTES # (AUTO) 2.1 /CMM (0.8-4.8); MEAN CORPUSCULAR HGB CONC 33 g/dl (31.0-36.0); MEAN CORPUSCULAR VOLUME 93 fL (80-96); MONOCYTES # (AUTO) 1.9 /CMM (0.1-1.30); NEUTROPHILS # (AUTO) 14.7 /CMM (1.8-8.9); NEUTROPHILS % (AUTO) 78.3 % (43.0-81.0); PLATELET COUNT (AUTO) 329 /CMM (150-450); RED BLOOD CELL COUNT(AUTO) 2.91 MIL/uL (4.5-6.0); WHITE BLOOD COUNT (AUTO) 18.8 K/uL (4.3-11.0)
--- NOTE | 2019-07-31 07:30 | NUR ---
GERALDINE/RN OPENING NOTES RECEIVED PATIENT IN BED RESTING COMFORTABLY. PATIENT IS OBTUNDED. NO FACIAL GRIMACING OR ACUTE DISTRESS AT THIS TIME. RESPIRATION EVEN AND UNLABORED. SKIN IS DRY WARM TO TOUCH. PATIENT ON MECHANICAL VENTILATION, TOLERATING WELL. NOTED WITH GTUBE INTACT AND PATENT WELL. IV ACCESS NOTED ON RAC AND ALICE BOTH WITH G20. SITES CLEAN, SECURE AND PATENT. SINUS TACHYCARDIA NOTED VIA CARDIAC MONITORING 115BPM. WITH NEPHROSTOMY TUBE AND PARK CATHETER. DRAINING YELLOW URINE. ALL NEEDS ANTICIPATED. CALL LIGHT WITHIN REACHED. SAFETY MAINTAINED. BED LOCKED AND IN LOWEST POSITION. WILL CONTINUE TO MONITOR CLOSELY.
[2019-07-31 07:49] LABS: ALBUMIN 1.2 g/dL (3.4-5.0)
[2019-07-31] MEDS: VANCOMYCIN 1 GM in IV D5W 250ml IV SCH (08:10)
[2019-07-31] MEDS: PANTOPRAZOLE 40 MG VIAL IV SCH (09:16)
[2019-07-31] MEDS: CALCIUM CARBONATE (1250) 500 MG TABLET GT SCH (09:16)
[2019-07-31] MEDS: ASCORBIC ACID 500 MG TABLET GT SCH (09:16)
[2019-07-31] MEDS: CHLORHEXIDINE GLUCONATE 15 ML UDC MM SCH ×2 (09:16→17:17)
[2019-07-31] MEDS: VALPROIC ACID 250 MG/5 ML UDC GT SCH ×2 (09:16→21:24)
[2019-07-31] MEDS: BICALUTAMIDE 50 MG TABLET GT SCH (09:17)
[2019-07-31] MEDS: PROSOURCE / PROSTAT (PYXIS) 30 ML UDC GT SCH (09:17)
[2019-07-31] MEDS: ACETAMINOPHEN 325 MG TABLET PO PRN (09:23)
--- NOTE | 2019-07-31 10:16 | NUR ---
WOUND CARE CONSULT: PT PRESENTS WITH REDNESS AROUND RT NEPHROSTOMY TUBE WITH SEVERE RASH TO BACK WITH WEEPING EDEMA, GENERALIZED EDEMA, INCONTINENCE OF LOOSE STOOL, INCONTINENCE ASSOCIATED SKIN DAMAGE TO GLUTEAL CREASE. RECOMMENDATIONS MADE FOR SKIN CARE AND PROTECTION. DISCUSSED WITH NURSING STAFF. MSG LEFT FOR VALARIE COLLINS N.P. REGARDING BACK RASH. PHOTO TAKEN. DEFER TO MD FOR NEPHROSTOMY TUBES. VERY SCANT AMOUNT OF DRAINAGE IN RT NEPH. TUBE DRAINAGE BAG AND SMALL AMOUNT IN LEFT. MATTRESS TO BE CHANGED. FIRST STEP LOW AIRLOSS MATTRESS ORDERED. WILL SEE PRN. MD IN AGREEMENT WITH PLAN OF CARE. Addendum: 07/31/19 at 1020 by VANESSA VALDERRAMA Amended: Links added. Addendum: 07/31/19 at 1021 by VANESSA VALDERRAMA PLEASE DISREGARD ABOVE WOUND CARE NOTE. INCORRECT PATIENT.
--- NOTE | 2019-07-31 10:25 | NUR ---
WOUND CARE CONSULT: PT FOLLOWED BY SURGICAL AND PODIATRY TEAMS FOR WOUND TREATMENT. DEFER TO SURGICAL TEAMS FOR WOUND TREATMENT PLAN. RECOMMENDATIONS MADE FOR SKIN PROTECTION AND DISCUSSED WITH NURSING STAFF. WILL SEE PRN. PT ON WES ISOFLEX LOW AIRLOSS BED.
--- NOTE | 2019-07-31 10:34 | NUR ---
GERALDINE/RN NOTES SPOKE TO WOOD DRILLING MACHINE OPERATOR REGARDING THE WOUND ON THE LEFT LOWER LEG THAT WAS ENDORSED BY THE WOUND NURSE. PATIENT WAS SEEN AND EVALUATED. SHE SAID THAT SHE WILL ORDER XEROFORM AND COVER WITH MEPILEX. PATIENT CONTINUES TO REMAIN IN STABLE CONDITION. WILL CONTINUE TO MONITOR CLOSELY.
[2019-07-31] MEDS: GLUCERNA 1.2 1,000 ML BOTTLE NG PRN (12:36)
--- NOTE | 2019-07-31 17:01 | NUR ---
GERALDINE/RN NOTES INFORMED DR. WEST REGARDING ALBUMIN LEVEL OF THE PATIENT. PER DR. WEST, ORDER DIETARY EVAL. ALL ORDERS NOTED AND CARRIED OUT. PATIENT CONTINUES TO REMAIN IN STABLE CONDITION. WILL CONTINUE MONITOR CLOSELY.
--- NOTE | 2019-07-31 18:26 | NUR ---
GERALDINE/RN CLOSING NOTES PATIENT CONTINUES TO REMAIN IN STABLE CONDITION THROUGHOUT THE SHIFT. PROVIDED COMFORT AND SAFETY. NOTED WITH GTUBE INTACT AND PATENT WELL. SINUS TACHYCARDIA NOTED VIA CARDIAC MONITORING 122BPM. WITH NEPHROSTOMY TUBE AND PARK CATHETER. DRAINING YELLOW URINE. ALL NEEDS ANTICIPATED. CALL LIGHT WITHIN REACHED. SAFETY MAINTAINED. BED LOCKED AND IN LOWEST POSITION. WILL CONTINUE TO MONITOR CLOSELY. ENDORSED PM NURSE FOR LIZETH.
--- NOTE | 2019-07-31 19:45 | NUR ---
TD RN NOTES RECEIVED PT ON BED. OBTUNDED. ON [facility] V[facility] SETTING NO RESPIRATORY DISTRESS NOTED. ON TELE MONITOR ST 116. IV ACCESS ON ALICE AND RAC G20 WITH NS RUNNING @ 75CC/HR, PATENT AND INTACT. PARK CATH DRAINING YELLOW URINE. GTUBE FEEDING RUNNING @ 55CC/HR NO RESIDUAL NOTED. HEAD OF BED ELEVATED. SIDE RAILS UP. CALL LIGHT WITHIN REACH. BED ALARM ON. BED IN LOW AND LOCKED POSITION. WILL MONITOR PT CLOSELY.
[2019-07-31] MEDS: TAMSULOSIN 0.4 MG CAP.SR.24H GT SCH (21:24)
[2019-07-31] MEDS: INSULIN GLARGINE, 100 UNIT/ML CARTRIDGE SQ SCH (23:03)
[2019-08-01] VITALS: BP 96/53
[2019-08-01] MEDS: MEROPENEM 500 MG in IV NS 0.9% 100 ML IV SCH ×2 (00:54→12:45)
[2019-08-01] MEDS: IPRATROPIUM NEB FS 0.5 MG/2.5 ML AMPUL.NEB IH SCH ×4 (02:23→20:48)
[2019-08-01] MEDS: ALBUTEROL FS 2.5 MG/3 ML VIAL.NEB IH SCH ×4 (02:23→20:48)
[2019-08-01 04:00] VITALS: BP 108/60
[2019-08-01] MEDS: BLOOD SUGAR DIAGNOSTIC 1 EACH STRIP IN SCH ×4 (05:09→23:58)
[2019-08-01 06:43] LABS: BASOPHILS % (AUTO) 0.2 % (0.0-2.0); EOSINOPHILS % (AUTO) 1.1 % (0.0-6.0); HEMATOCRIT 25 % (39-51); HEMOGLOBIN 8.2 g/dL (13.5-17.5); LYMPHOCYTES # (AUTO) 2.4 /CMM (0.8-4.8); LYMPHOCYTES % (AUTO) 16.3 % (20.0-44.0); MEAN CORPUSCULAR HGB CONC 33 g/dl (31.0-36.0); MEAN CORPUSCULAR VOLUME 93 fL (80-96); MONOCYTES # (AUTO) 1.6 /CMM (0.1-1.30); MONOCYTES % (AUTO) 10.7 % (2.0-12.0); NEUTROPHILS # (AUTO) 10.5 /CMM (1.8-8.9); NEUTROPHILS % (AUTO) 71.7 % (43.0-81.0); PLATELET COUNT (AUTO) 358 /CMM (150-450); RED BLOOD CELL COUNT(AUTO) 2.71 MIL/uL (4.5-6.0); WHITE BLOOD COUNT (AUTO) 14.7 K/uL (4.3-11.0)
[2019-08-01 06:44] LABS: CALCIUM, SERUM 8.5 mg/dL (8.5-10.1); CREATININE 1.8 mg/dL (0.6-1.3); MAGNESIUM 2.2 mg/dL (1.8-2.4); PHOSPHORUS 3.6 mg/dL (2.5-4.9); POTASSIUM 3.9 mmol/L (3.5-5.1)
--- NOTE | 2019-08-01 07:19 | NUR ---
TD RN NOTES NO ACUTE CHANGES NOTED DURING THE SHIFT. PROVIDED COMFORT AND SAFETY, WOUND CARE DONE. WILL ENDORSE TO THE AM NURSE FOR CONTINUITY OF CARE.
--- NOTE | 2019-08-01 07:20 | NUR ---
RN INITIAL NOTE PATIENT IN BED, AWAKE NON VERBAL, OBTUNDED. ON VENT, SATING WELL AT 100%. NO SOB NOTED, NO PAIN NOTED. ON TELE MONITOR, HAS A UROSTOMY AND FC. ON GTF AT 55 ML/HR. HAS RIGHT AC #20 AND LEFT UA #20 WITH NS AT 75 ML/HR. BED LOCKED AND IN LOWEST POSITION. WILL CONTINUE TO MONITOR
[2019-08-01 08:00] VITALS: BP 107/63
[2019-08-01] MEDS: VANCOMYCIN 0.75 GM in IV D5W 250 ML IV SCH (08:12)
[2019-08-01] MEDS: CHLORHEXIDINE GLUCONATE 15 ML UDC MM SCH ×2 (08:13→16:27)
[2019-08-01] MEDS: ASCORBIC ACID 500 MG TABLET GT SCH (08:13)
[2019-08-01] MEDS: CALCIUM CARBONATE (1250) 500 MG TABLET GT SCH (08:13)
[2019-08-01] MEDS: VALPROIC ACID 250 MG/5 ML UDC GT SCH ×2 (08:13→21:40)
[2019-08-01] MEDS: PROSOURCE / PROSTAT (PYXIS) 30 ML UDC GT SCH (08:13)
[2019-08-01] MEDS: PANTOPRAZOLE 40 MG VIAL IV SCH (08:13)
[2019-08-01] MEDS: BICALUTAMIDE 50 MG TABLET GT SCH (08:14)
--- NOTE | 2019-08-01 08:27 | NUR ---
RT NOTE RECEIVED PT MECHANICALLY VENTILATED VIA CUFFED TRACHEOSTOMY TUBE. CUFF INFLATED. TRACH TUBE MIDLINE AND SECURE. VENTILATOR SETTINGS PRESCRIBED. ALARMS SET PER PROTOCOL AND AUDIBLE. VENT PLUGGED IN TO RED OUTLET. AMBU BAG AND BACK UP TRACH AT BED SIDE. NO DISTRESS NOTED AT MOMENT. Addendum: 08/01/19 at 0829 by NAKITA JIMENEZ RT Amended: Links added.
[2019-08-01 12:00] VITALS: BP 109/67
[2019-08-01 12:06] LABS: PTH, INTACT 58 pg/mL (15-65)
[2019-08-01 16:00] VITALS: BP 112/67
[2019-08-01] MEDS: GLUCERNA 1.2 1,000 ML BOTTLE NG PRN (16:27)
[2019-08-01] MEDS: IV NS 0.9% 1,000 ML IV PRN (16:35)
--- NOTE | 2019-08-01 18:59 | NUR ---
RN CLOSING NOTE PATIENT IN BED, AWAKE NON VERBAL. ON VENT, SATURATION AT 100%. NO SIGNS OF ANY PAIN NOR SOB AT THIS TIME. ALL MEDS GIVEN, ALL NEEDS MET. WOUND TX DONE. HAS A UROSTOMY 800 ML OUT. AND PARK CATH WITH 400 ML OUT. ON GLUCERNA AT 55 ML/HR. HAS A RIGHT AC #20 WITH NS AT 75 ML/HR. LEFT UA #20. NO INSULIN COVERAGE GIVEN. BED LOCKED AND IN LOWEST POSITION. ENDORSED TO NOC SHIFT FOR LIZETH
--- NOTE | 2019-08-01 19:15 | NUR ---
GERALDINE RN NOTE PATIENT REPORT GIVEN BEDSIDE. PATIENT IN BED NON VERBAL. PATIENT TOLERATING VENT SETTINGS NO S/S OF DISTRESS. BREATHING EVEN AND UNLABORED TRACH MIDLINE. PATIENT ON GTUBE FEEDING WITH MINIMAL RESIDUAL NOTED. PATIENT TURNED AND ORAL SUCTION GIVEN. PATIENT HAS NEPHROSTOMY AND PARK CATHETER PATENT AND INTACT WITH CLEAR YELLOW URINE. PATIENT HAS 20 G IN RAC PATENT AND INTACT NO S/S OF INFECTION OR INFILTRATION. SAFETY PRECAUTIONS IN PLACE RN WILL CONTINUE TO MONITOR.
[2019-08-01 20:00] VITALS: BP 135/68
[2019-08-01] MEDS: TAMSULOSIN 0.4 MG CAP.SR.24H GT SCH (21:58)
[2019-08-01] MEDS: INSULIN GLARGINE, 100 UNIT/ML CARTRIDGE SQ SCH (21:59)
[2019-08-02] VITALS: BP 133/74
[2019-08-02] MEDS: MEROPENEM 500 MG in IV NS 0.9% 100 ML IV SCH ×2 (00:01→12:02)
[2019-08-02] MEDS: ALBUTEROL FS 2.5 MG/3 ML VIAL.NEB IH SCH ×4 (02:42→19:52)
[2019-08-02] MEDS: IPRATROPIUM NEB FS 0.5 MG/2.5 ML AMPUL.NEB IH SCH ×4 (02:42→19:52)
[2019-08-02 04:00] VITALS: BP 125/67
[2019-08-02] MEDS: BLOOD SUGAR DIAGNOSTIC 1 EACH STRIP IN SCH ×4 (05:39→23:00)
[2019-08-02] MEDS: IV NS 0.9% 1,000 ML IV PRN ×2 (06:16→11:02)
--- NOTE | 2019-08-02 06:29 | NUR ---
RT NOTE PT REC'D TRACHED ON [facility] VENT ON NOTED SETTINGS. NO RESP DISTRESS OR SOB NOTED. SX'D FOR THICK MOD AMT OF PALE YELLOW SECRETIONS. TRACH PATENT AND SECURED. ALARMS ARE SET AND AUDIBLE. VENT PLUGGED INTO RED OUTLET. AMBU BAG BEDSIDE. Addendum: 08/02/19 at 0629 by JHONATHAN POLLARD RT Amended: Links added.
[2019-08-02 07:09] LABS: BASOPHILS # (AUTO) 0.1 /CMM (0.0-0.2); BASOPHILS % (AUTO) 0.5 % (0.0-2.0); EOSINOPHILS % (AUTO) 2.2 % (0.0-6.0); HEMATOCRIT 25 % (39-51); HEMOGLOBIN 8.1 g/dL (13.5-17.5); LYMPHOCYTES # (AUTO) 2.3 /CMM (0.8-4.8); LYMPHOCYTES % (AUTO) 19.5 % (20.0-44.0); MEAN CORPUSCULAR HGB CONC 33 g/dl (31.0-36.0); MEAN CORPUSCULAR VOLUME 93 fL (80-96); MONOCYTES # (AUTO) 1.3 /CMM (0.1-1.30); MONOCYTES % (AUTO) 11.4 % (2.0-12.0); NEUTROPHILS # (AUTO) 7.7 /CMM (1.8-8.9); NEUTROPHILS % (AUTO) 66.4 % (43.0-81.0); PLATELET COUNT (AUTO) 426 /CMM (150-450); RED BLOOD CELL COUNT(AUTO) 2.67 MIL/uL (4.5-6.0); WHITE BLOOD COUNT (AUTO) 11.5 K/uL (4.3-11.0)
[2019-08-02 07:28] LABS: CALCIUM, SERUM 8.6 mg/dL (8.5-10.1); CREATININE 1.4 mg/dL (0.6-1.3); PHOSPHORUS 3.3 mg/dL (2.5-4.9); POTASSIUM 4.1 mmol/L (3.5-5.1)
--- NOTE | 2019-08-02 07:33 | NUR ---
GERALDINE RN NOTE PATIENT IN BED PATIENT IN BED NON VERBAL. PATIENT WITH TRACH TO VENT SETTING ORDERED ,TOLERATING VENT SETTINGS NO S/S OF DISTRESS. BREATHING EVEN AND UNLABORED TRACH MIDLINE. PATIENT ON GTUBE FEEDING WITH MINIMAL RESIDUAL NOTED. PATIENT TURNED AND ORAL SUCTION GIVEN. PATIENT HAS NEPHROSTOMY WITH YELLOW COLOR URINE ON RT SIDE AND PARK CATHETER PATENT AND INTACT WITH CLEAR YELLOW URINE. PATIENT HAS 20 G IN RAC PATENT AND INTACT NO S/S OF INFECTION OR INFILTRATION. SAFETY PRECAUTIONS IN PLACE RN WILL CONTINUE TO MONITOR. , ON TELE MONITOR ST HR 105 , BED IN LOWEST ANBD LOCKED POSITION, WILL CONT TO MONITOR
[2019-08-02 08:00] VITALS: BP 122/81
[2019-08-02] MEDS: BICALUTAMIDE 50 MG TABLET GT SCH (08:45)
[2019-08-02] MEDS: PANTOPRAZOLE 40 MG VIAL IV SCH (08:45)
[2019-08-02] MEDS: CHLORHEXIDINE GLUCONATE 15 ML UDC MM SCH ×2 (08:45→16:31)
[2019-08-02] MEDS: ASCORBIC ACID 500 MG TABLET GT SCH (08:45)
[2019-08-02] MEDS: CALCIUM CARBONATE (1250) 500 MG TABLET GT SCH (08:45)
[2019-08-02] MEDS: VALPROIC ACID 250 MG/5 ML UDC GT SCH ×2 (08:45→22:42)
[2019-08-02] MEDS: VANCOMYCIN 0.75 GM in IV D5W 250 ML IV SCH (08:46)
[2019-08-02] MEDS: PROSOURCE / PROSTAT (PYXIS) 30 ML UDC GT SCH (08:46)
--- NOTE | 2019-08-02 11:00 | NUR ---
albino rn note all needs attended ,with trach to vent setting as ordered tolerated well ,trach suction and mouth care done ,turn reposition q2 hour
[2019-08-02 12:00] VITALS: BP 110/78
--- NOTE | 2019-08-02 15:00 | NUR ---
GERALDINE RN NOTE TURN REPOSITION , WITH G TUBE FEEDING ORDERED, ON IVF ORDERED, WILL MONITOR
[2019-08-02 16:00] VITALS: BP 132/82
[2019-08-02] MEDS: GLUCERNA 1.2 1,000 ML BOTTLE NG PRN (16:05)
--- NOTE | 2019-08-02 17:47 | NUR ---
GERALDINE RN NOTE NEW HL ON RT HAND AND RT RA INSERTED MAYO 24 WITH GOOD BLOOD RETURN ,KEEP CLEAN DRY , ALL NEEDS ATTENDED
--- NOTE | 2019-08-02 18:28 | NUR ---
GERALDINE RN NOTE PER DR WEST TO INSERT MID LINE
--- NOTE | 2019-08-02 18:52 | NUR ---
albino rn note per dr Richie leyva to inert picc line ,spoke with family telephone consent obtained
--- NOTE | 2019-08-02 19:50 | NUR ---
GERALDINE RN NOTE PICC LINE NURSE MIKE INSERTED CENTRAL LINE IN RT FEMORAL. CHEST XRAY ORDERED BY DAY SHIFT NURSE. CONTINUE TO MONITOR THE PT. SITE IS CLEAN AND DRY, NO BLEEDING NOTED.
[2019-08-02 20:00] VITALS: BP 129/79
--- NOTE | 2019-08-02 20:00 | NUR ---
GERALDINE RN NOTE PT IN BED OBTUNDED. ON VENT/TRACH TOLERATING THE SETTING WELL, SUCTIONED HIM FREQUENTLY, THIN WHITE SECRETIONS NOTED. SKIN WARM AND DRY. GTF GLUCERNA 1.2 MALENA INFUSING AT 55 ML/HR, 0 ML RESIDUAL NOTED. KEPT HOB ELEVATED. IVF NS INFUSING AT 75 ML/HR, NO S/S OF INFILTRATION NOTED. CENTRAL LINE IN RT FEMORAL INTACT AND PATENT. RT NEPHROSTOMY TUBE IN PLACE DRAINING YELLOWISH COLOR FLUIDS. F/C INTACT AND PATENT DRAINING WELL YELLOWISH COLOR URINE. REPOSITION HIM Q2H, SIDE RAILS UP X 3 AND CALL LIGHT WITHIN REACH. VSS. CONTINUE TO MONITOR HIM.
[2019-08-02] MEDS: INSULIN GLARGINE, 100 UNIT/ML CARTRIDGE SQ SCH (22:00)
[2019-08-02] MEDS: TAMSULOSIN 0.4 MG CAP.SR.24H GT SCH (22:42)
[2019-08-03] VITALS: BP 121/74
[2019-08-03] MEDS: MEROPENEM 500 MG in IV NS 0.9% 100 ML IV SCH ×2 (01:15→13:18)
[2019-08-03] MEDS: IPRATROPIUM NEB FS 0.5 MG/2.5 ML AMPUL.NEB IH SCH ×4 (01:41→19:30)
[2019-08-03] MEDS: ALBUTEROL FS 2.5 MG/3 ML VIAL.NEB IH SCH ×4 (01:42→19:30)
[2019-08-03] MEDS: IV NS 0.9% 1,000 ML IV PRN (04:13)
--- NOTE | 2019-08-03 05:19 | NUR ---
RT NOTE PT REC'D TRACHED ON [facility] VENT ON NOTED SETTINGS. NO RESP DISTRESS OR SOB NOTED. SX'D FOR THICK MOD AMT OF PALE YELLOW SECRETIONS. TRACH PATENT AND SECURED. ALARMS ARE SET AND AUDIBLE. VENT PLUGGED INTO RED OUTLET. AMBU BAG BEDSIDE. Addendum: 08/03/19 at 0519 by JHONATHAN POLLARD RT Amended: Links added.
[2019-08-03 06:00] VITALS: BP 111/68
[2019-08-03 06:22] LABS: BASOPHILS # (AUTO) 0.1 /CMM (0.0-0.2); BASOPHILS % (AUTO) 0.6 % (0.0-2.0); EOSINOPHILS % (AUTO) 2.2 % (0.0-6.0); HEMATOCRIT 23 % (39-51); HEMOGLOBIN 7.7 g/dL (13.5-17.5); LYMPHOCYTES # (AUTO) 2.4 /CMM (0.8-4.8); LYMPHOCYTES % (AUTO) 23.3 % (20.0-44.0); MEAN CORPUSCULAR HGB CONC 33 g/dl (31.0-36.0); MEAN CORPUSCULAR VOLUME 93 fL (80-96); MONOCYTES # (AUTO) 1.3 /CMM (0.1-1.30); MONOCYTES % (AUTO) 12.7 % (2.0-12.0); NEUTROPHILS # (AUTO) 6.3 /CMM (1.8-8.9); NEUTROPHILS % (AUTO) 61.2 % (43.0-81.0); PLATELET COUNT (AUTO) 503 /CMM (150-450); RED BLOOD CELL COUNT(AUTO) 2.52 MIL/uL (4.5-6.0); WHITE BLOOD COUNT (AUTO) 10.3 K/uL (4.3-11.0)
[2019-08-03 06:48] LABS: CALCIUM, SERUM 8.4 mg/dL (8.5-10.1); CREATININE 1.2 mg/dL (0.6-1.3); MAGNESIUM 1.6 mg/dL (1.8-2.4); PHOSPHORUS 3.1 mg/dL (2.5-4.9)
[2019-08-03] MEDS: BLOOD SUGAR DIAGNOSTIC 1 EACH STRIP IN SCH ×3 (06:52→17:32)
--- NOTE | 2019-08-03 07:02 | NUR ---
GERALDINE RN NOTE PT IN BED OBTUNDED. TOLERATING VENT SETTINGS. SUCTIONED HIM FREQUENTLY. GTF FEEDING INFUSING WELL. 0 ML RESIDUAL NOTED. NEPHROSTOMY BAG INTACT AND PATENT DRAINING YELLOWISH COLOR FLUID. 1000 ML OUT NOTED DURING THE SHIFT. F/C INTACT AND PATENT DRAINING YELLOWISH COLOR URINE. ON TELE ST 105. SIDE RAILS UP X 3 AND CALL LIGHT WITHIN REACH. VSS. ENDORSE TO DAY SHIFT NURSE FOR CONTINUE TO CARE.
[2019-08-03 08:00] VITALS: BP 128/76
--- NOTE | 2019-08-03 08:00 | NUR ---
TD/RN AM SHIFT INITIAL NOTES RECEIVED PT AWAKE IN BED, NON-VERBAL, OPEN EYES. NO GRIMACING OR ACUTE CHANGE OF CONDITION NOTED. ON VENTILATOR WITH RATES SET PRESCRIBED, SATURATING @ 99%, RESPIRATIONS EVEN & UNLABORED, LUNG SOUNDS CLEAR. SUCTIONED FOR AIRWAY CLEARANCE. ON TELE WITH SINUS RHYTHM, HR 82. IV ON GOING INFUSION OF NS @ 75CC/HR, IV SITES PATENT WITH NO S/S OF INFECTIONS. NEPHROSTOMY TUBE INTACT WITH YELLOW URINE OUTPUT WE[employer] PARK CATHETER. GT FEEDING TURNED OFF (PER SCHEDULED FEEDING), NO GASTRIC RESIDUAL, FLUSHED PATENT. PT IS COMFORTABLE, SCHEDULED AM MEDS TO BE GIVEN. CL WITHIN REACHED, SAFETY MAINTAINED AND ISOLATION OBSERVED. ON GOING MONITORING.
[2019-08-03] MEDS: VANCOMYCIN 0.75 GM in IV D5W 250 ML IV SCH (09:28)
[2019-08-03] MEDS: CHLORHEXIDINE GLUCONATE 15 ML UDC MM SCH ×2 (09:28→17:15)
[2019-08-03] MEDS: PANTOPRAZOLE 40 MG VIAL IV SCH (09:29)
[2019-08-03] MEDS: CALCIUM CARBONATE (1250) 500 MG TABLET GT SCH (09:29)
[2019-08-03] MEDS: ASCORBIC ACID 500 MG TABLET GT SCH (09:29)
[2019-08-03] MEDS: VALPROIC ACID 250 MG/5 ML UDC GT SCH (09:29)
[2019-08-03] MEDS: BICALUTAMIDE 50 MG TABLET GT SCH (09:29)
[2019-08-03] MEDS: PROSOURCE / PROSTAT (PYXIS) 30 ML UDC GT SCH (09:30)
--- NOTE | 2019-08-03 10:30 | NUR ---
TELE1/RN ROUNDS - DR. WEST PT SEEN & EXAMINED BY DR. WEST. NO NEW ORDER RECEIVED AT THIS TIME.
--- NOTE | 2019-08-03 11:43 | NUR ---
TELE1/CHARGER OPERATOR HELPER OF CARE REPORT GIVEN TO NURSE JOSEPH. PT ENDORSED TO CONTINUE CARE.
[2019-08-03 12:00] VITALS: BP_SYST 119; BP_SYST 151; BP_DIAS 56; BP_DIAS 88
--- NOTE | 2019-08-03 12:00 | NUR ---
RN NOTE: RECEIVED A REPORT FROM GERALDINE RUEDA RN FOR THE CONTINUITY OF CARE OF THE PATIENT. PATIENT WAS PLANNED FOR DISCHARGE BACK TO [facility] TODAY. AWAITING FOR TRANSPORTATION ARRANGEMENT FROM [facility]
[2019-08-03] MEDS: Magnesium 1GM/D5W 100ML PREMIX 100 ML IV SCH ×2 (13:18→14:33)
--- NOTE | 2019-08-03 14:30 | NUR ---
RN NOTE: CALLED AND SPOKE WITH COREY PIPER AT [facility] AND GAVE PERTINENT INFORMATION REGARDING THE PATIENT'S DISCHARGE BACK TO THE FACILITY INCLUDING THE IV ANTIBIOTICS. ETA FOR FURNITURE ASSEMBLER WAS 1530 PER KASI, SENIOR ENERGY MARKET COORDINATOR.
--- NOTE | 2019-08-03 15:35 | NUR ---
RN NOTE: CALLED AND SPOKE WITH KASI MASCARA MOLDER REGARDING THE PATIENT'S TRANSPORTATION FOR DISCHARGE. ETA WAS 1745.
[2019-08-03 16:00] VITALS: BP 136/95
--- NOTE | 2019-08-03 17:36 | NUR ---
RT END OF THE SHIFT REPORT, PT. REC @0700 AM 59 Y OLD MALE NON RESPONSIVE TRACH'D PORTEX # 8 ON VENT WITH NOTED SETTINGS. EQUAL CHEST RISE NOTED B/S BILATERALLY RALES SUX'D FOR MINIMAL AMT OF WHITE THICK SECRETIONS, NO CHANGES T/O DAY. TX'S GIVEN INLINE Q6 NO ADVERSE REACTION NOTED, HME, TC OPERATOR DONE. INNER CANNULA CHANGED TRACH CARE DONE. PT. VENT PLUGGED INTO RED OUT LET. AMBU BAG/EXTRA TRACH AT BEDSIDE. WILL CONTINUE TO MONITOR. REPORT WILL PASS TO PM SHIFT. Addendum: 08/03/19 at 1737 by GEN MTZ RT Amended: Links added.
--- NOTE | 2019-08-03 17:55 | NUR ---
RN NOTE: PATIENT WAS TRANSPORTED BY [facility] WITH 2 ZYGLO INSPECTOR AND 1 RT. DISCHARGE PACKET WAS RELEASED TO THE ZYGLO INSPECTOR INCLUDING THE TREATMENT ORDER AND MEDICATION RECONCILIATION. (R) FEMORAL PICC LINE WAS KEPT FOR THE PATIENT FOR CONTINUED IV ANTIBIOTICS AT [facility]. PATIENT HAS NO BELONGINGS UPON DISCHARGE.
[2019-08-04 05:07] LABS: *SPE A/G RATIO 0.3 (0.7-1.7); *SPE ALBUMIN 1.6 g/dL (2.9-4.4); *SPE ALPHA-1-GLOBULIN 0.5 g/dL (0.0-0.4); *SPE BETA GLOBULIN 1.1 g/dL (0.7-1.3); *SPE GLOBULIN, TOTAL 6.3 g/dL (2.2-3.9); *SPE M-SPIKE Not Observed g/dL (Not Observed); *SPEGAMMA GLOBULIN 3.6 g/dL (0.4-1.8)
[2019-08-13] MEDS ORDERED: [UNRECOGNIZED DRUG - CODE] IV (10:21)
== END 2019-08-03 17:55 | DRG 720 ==
LOC: ER 06:57 → TELE-TD 10:15 → TELE1 08-03 11:00 → MEDSG1 08-03 11:11 → TELE1 08-03 11:20
PROC: 5A1955Z Respiratory Ventilation, Greater than 96 Consecutive Hours (ICD-10-PCS; principal; 2019-07-29)
PROC: 30233P1 Transfusion of Nonautologous Frozen Red Cells into Peripheral Vein, Percutaneous Approach (ICD-10-PCS; principal; 2019-07-29)
PROC: B549ZZA Ultrasonography of Inferior Vena Cava, Guidance (ICD-10-PCS; 2019-08-02)
PROC: 06H033Z Insertion of Infusion Device into Inferior Vena Cava, Percutaneous Approach (ICD-10-PCS; 2019-08-02)
DX: A41.9 Sepsis, unspecified organism (principal); N17.0 Acute kidney failure with tubular necrosis; Z99.11 Dependence on respirator [ventilator] status; J96.11 Chronic respiratory failure with hypoxia; Z93.0 Tracheostomy status; R13.10 Dysphagia, unspecified; C78.00 Secondary malignant neoplasm of unspecified lung; C79.51 Secondary malignant neoplasm of bone; F09 Unspecified mental disorder due to known physiological condition; K21.9 Gastro-esophageal reflux disease without esophagitis; N39.0 Urinary tract infection, site not specified; R65.20 Severe sepsis without septic shock; Z93.1 Gastrostomy status; G40.909 Epilepsy, unspecified, not intractable, without status epilepticus; I25.10 Atherosclerotic heart disease of native coronary artery without angina pectoris; C61 Malignant neoplasm of prostate; Z93.6 Other artificial openings of urinary tract status; D63.1 Anemia in chronic kidney disease; L89.890 Pressure ulcer of other site, unstageable; E11.22 Type 2 diabetes mellitus with diabetic chronic kidney disease; E11.51 Type 2 diabetes mellitus with diabetic peripheral angiopathy without gangrene; M24.572 Contracture, left ankle; M24.571 Contracture, right ankle; Z74.01 Bed confinement status; D72.829 Elevated white blood cell count, unspecified; B96.20 Unspecified Escherichia coli [E. coli] as the cause of diseases classified elsewhere; I12.9 Hypertensive chronic kidney disease with stage 1 through stage 4 chronic kidney disease, or unspecified chronic kidney disease; N18.4 Chronic kidney disease, stage 4 (severe); Z16.12 Extended spectrum beta lactamase (ESBL) resistance; Z87.440 Personal history of urinary (tract) infections
CPT/HCPCS: 31720; 36415; 36569; 71045-TC; 76770-TC; 80048-TC; 80053-TC; 80061-TC; 80076-TC; 80202-TC; 81000-TC; 82550-TC; 82570-TC; 82962-TC; 83605-TC; 83735-TC; 83970; 84100-TC; 84155; 84155-TC; 84165; 84300-TC; 84443-TC; 84484-TC; 85025-TC; 85730-TC; 86850-TC; 86921-TC; 87040-TC; 87081-TC; 87086-TC; 87186-TC; 94002-TC; 94003-TC; 94760-TC; 94762-TC; 99082-TC; A4216; A4623; A6403; A7526; C1751; C9113; G0378; J1815; J1956; J2185; J2543; J3370; J3475; J3490; J7030; J7040; J7050; J7060; P9016-BL

== ENCOUNTER 2019-08-11 03:08 | Inpatient (IN) | payer MEDICAID ==
[~2019-08-11] VITALS: Ht 165.1 cm; Wt 69.4 kg
--- NOTE | 2019-08-11 03:10 | NUR ---
biba for evaluation of abnormal lab, pt had a k+ level of 7.1 at the facility today and kayoxalate given STERILIZER OPERATOR. pt obtundent, VDRF, trach in place, GT , F/C and R nephrostomy tube in place. w/ R femoral 2 lumen PICC line. pt was placed on a monitor.
--- NOTE | 2019-08-11 03:24 | NUR ---
RT NOTE Pt rec'd trached via Portex 8 on [facility] vent on AC mode settings given from transport RT. No resp distress or sob noted. Trach is patent and secured. SITE SAFETY MANAGER cuff pressure noted. Sx'd for thick mod amt of pale yellow secretions. Alarms are set and audible. Vent plugged into red outlet. Ambu bag bedside. Will continue to monitor. Addendum: 08/11/19 at 0325 by JHONATHAN POLLARD RT Amended: Links added.
[2019-08-11 03:40] LABS: BASOPHILS # (AUTO) 0.1 /CMM (0.0-0.2); BASOPHILS % (AUTO) 0.5 % (0.0-2.0); EOSINOPHILS % (AUTO) 3.2 % (0.0-6.0); HEMATOCRIT 26 % (39-51); HEMOGLOBIN 8.3 g/dL (13.5-17.5); LYMPHOCYTES # (AUTO) 3.6 /CMM (0.8-4.8); LYMPHOCYTES % (AUTO) 32.1 % (20.0-44.0); MEAN CORPUSCULAR HGB CONC 32 g/dl (31.0-36.0); MEAN CORPUSCULAR VOLUME 94 fL (80-96); MONOCYTES # (AUTO) 0.8 /CMM (0.1-1.30); MONOCYTES % (AUTO) 7.5 % (2.0-12.0); NEUTROPHILS # (AUTO) 6.4 /CMM (1.8-8.9); NEUTROPHILS % (AUTO) 56.7 % (43.0-81.0); PLATELET COUNT (AUTO) 454 /CMM (150-450); RED BLOOD CELL COUNT(AUTO) 2.77 MIL/uL (4.5-6.0); WHITE BLOOD COUNT (AUTO) 11.2 K/uL (4.3-11.0)
[2019-08-11 03:46] LABS: CALCIUM, SERUM 9.1 mg/dL (8.5-10.1); CARBON DIOXIDE 27 mmol/L (21-32); CHLORIDE 108 mmol/L (98-107); CREATININE 1.2 mg/dL (0.6-1.3); GLUCOSE 100 mg/dL (74-106); SODIUM SERUM 139 mmol/L (136-145); UREA NITROGEN, BLOOD 33 mg/dL (7-18)
[2019-08-11 03:49] LABS: APPEARANCE,URINE SL CLOUDY (CLEAR); BILIRUBIN,URINE NEGATIVE (NEGATIVE); BLOOD, URINE LARGE Ery/uL (NEGATIVE); COLOR,URINE YELLOW (YELLOW); KETONES,URINE NEGATIVE (NEGATIVE); LEUKOCYTE ESTERASE ,URINE LARGE (NEGATIVE); NITRITE, URINE NEGATIVE (NEGATIVE); PROTEIN,URINE 30 mg/dl (NEGATIVE); UGLUCOSE NEGATIVE (NEGATIVE); UROBILINOGEN,URINE 0.2 EU/dL (0.2)
[2019-08-11 03:52] LABS: ALANINE AMINOTRANSFERASE 58 U/L (12-78); ALBUMIN 1.9 g/dL (3.4-5.0); ALKALINE PHOSPHATASE 428 U/L (46-116); ASPARTATE AMINOTRANSFERASE 70 U/L (15-37); BILIRUBIN,DIRECT 0.1 mg/dL (0.0-0.2); BILIRUBIN,TOTAL 0.2 mg/dL (0.2-1.0); TOTAL PROTEIN, SERUM 10.5 g/dL (6.4-8.2)
[2019-08-11 03:55] LABS: RBC,URINE 21-50 /HPF (0-2); WBC,URINE TOO NUMEROUS TO COUN /HPF (0-3)
[2019-08-11 03:56] LABS: BACTERIA,URINE Few /HPF (None Seen); SQUAMOUS EPITHELIAL CELL,UR Rare /HPF (None Seen)
[2019-08-11] MEDS ORDERED: PIPERACILLIN /TAZOBACTAM 3.375 G VIAL IV ONE (05:37)
[2019-08-11] MEDS ORDERED: VANCOMYCIN 1 GM VIAL ONE (05:37)
[2019-08-11] MEDS ORDERED: MAG HYDROX/AL HYDROX/SIMETH 30 ML UDC PO PRN (06:00)
[2019-08-11] MEDS ORDERED: VANCOMYCIN 1 GM in IV D5W 250 ML IV ONE (06:00)
[2019-08-11] MEDS ORDERED: HYDROCODONE/APAP 5/325MG 1 EACH TABLET PO PRN (06:00)
[2019-08-11] MEDS ORDERED: CEFTRIAXONE 1 G in IV D5W 50 ML IV SCH (06:00)
[2019-08-11] MEDS ORDERED: MAGNESIUM HYDROXIDE 30 ML UDC PO PRN (06:00)
[2019-08-11] MEDS ORDERED: ZOLPIDEM TARTRATE 5 MG TABLET PO PRN (06:00)
[2019-08-11] MEDS ORDERED: ACETAMINOPHEN 325 MG TABLET PO PRN ×2 (06:00→14:30)
[2019-08-11] MEDS ORDERED: IV NS 0.9% 1,000 ML BAG IV ONE (06:00)
[2019-08-11] MEDS ORDERED: MORPHINE SULFATE INJ 2 MG/ML DISP.SYRIN IV PRN (06:00)
[2019-08-11] MEDS ORDERED: PIPERACILLIN /TAZOBACTAM 3.375 G in IV D5W 50 ML IV ONE (06:00)
[2019-08-11] MEDS ORDERED: Z GUARD REMEDY 2 OZ OINT TP PRN (06:00)
[2019-08-11] MEDS ORDERED: ONDANSETRON HCL/PF 4 MG/2 ML VIAL IVP PRN (06:00)
--- NOTE | 2019-08-11 06:35 | NUR ---
report given to Zo to third floor.
--- NOTE | 2019-08-11 07:00 | NUR ---
ASSISTANT FINANCE MANAGERPEARLER NOTE RECEIVED PATIENT VIA GURNEY. PATIENT TRANSFERRED TO BED. ON CONTACT ISOLATION FOR ESBL URINE. PATIENT IS OBTUNDED. ON MECHANICAL VENTILATOR. SETTINGS : PORTEX #8 12/500/40%/PEEP 5.DOESNT APPEAR TO BE IN PAIN. EXTERNAL TELE MONITOR READS ST 106. IN NO APPARENT DISTRESS. GTUBE IS PRESENT, SITE COVERED WITH DRESSING AND PAPER TAPE. IV ACCESS IN RIGHT FEMORAL PICC 2 LUMEN RUNNING VANCO AND 1L NS TO GRAVITY. PARK CATHETER IS PRESENT, DRAINING TO GRAVITY, URINE IS YELLOW. RIGHT NEPHROSTOMY TUBE PRESENT DRAINAGE IS YELLOW. BED IS LOW AND LOCKED, SIDE RAILS UP X2, HOB ELEVATED 60 DEGREES, BED ALARM ON. CALL LIGHT WITHIN REACH. MADE PATIENT COMFORTABLE. CHECKED VITAL SIGNS. WILL ENDORSE TO NEXT SHIFT.
--- NOTE | 2019-08-11 07:12 | NUR ---
pt was transferred to 324-2 under ACLS,
[2019-08-11 07:30] VITALS: BP 122/73
[2019-08-11] MEDS ORDERED: PANTOPRAZOLE 40 MG TABLET.DR PO SCH (07:30)
[2019-08-11 08:00] VITALS: BP 122/73
--- NOTE | 2019-08-11 08:00 | NUR ---
RAILROAD CAR CLEANER AM ADMISSION NOTES RECEIVED PATIENT IN BED ON CONTACT ISOLATION FOR ESBL URINE. PATIENT IS OBTUNDED. ON MECHANICAL VENTILATOR. SETTINGS : PORTEX #8 12/500/40%/PEEP 5.DOESNT APPEAR TO BE IN PAIN. EXTERNAL TELE MONITOR READS SR 96. IN NO APPARENT DISTRESS. GTUBE IS PRESENT, SITE COVERED WITH DRESSING AND PAPER TAPE. IV ACCESS IN RIGHT FEMORAL PICC 2 LUMEN RUNNING VANCO AND 1L NS TO GRAVITY TO CONSUME. PARK CATHETER IS PRESENT, DRAINING TO GRAVITY, URINE IS YELLOW. RIGHT NEPHROSTOMY TUBE PRESENT DRAINAGE IS YELLOW. BED IS LOW AND LOCKED, SIDE RAILS UP X2, HOB ELEVATED 60 DEGREES, BED ALARM ON. CALL LIGHT WITHIN REACH. MADE PATIENT COMFORTABLE. CHECKED VITAL SIGNS.
[2019-08-11] MEDS ORDERED: EPOE4000 IJ (08:55)
[2019-08-11] MEDS ORDERED: ZINC220C6 PO (08:55)
[2019-08-11] MEDS ORDERED: NUTR1PAC14 PO (08:55)
--- NOTE | 2019-08-11 10:00 | NUR ---
PT RESTING IN BED WITH NO S/S OF PAIN OR DISTRESS.SUCTIONED ORAL SECRETIONS FREQUENTLY.PT DROOLS FREQUENTLY EVERY 10-15 MINS EVEN AFTER BEING SUCTIONED.TURNED EVERY TWO HRS.
[2019-08-11] MEDS: ENOXAPARIN SODIUM 40 MG/0.4 ML DISP.SYRIN SQ SCH (10:10)
[2019-08-11] MEDS: IV 1/2NS 1000 ML 1,000 ML IV PRN (10:15)
[2019-08-11] MEDS ORDERED: FEE PK DOSING 1 MIN EA MC ONE (11:51)
[2019-08-11] MEDS ORDERED: BISACODYL SUPP (10 MG) 10 MG/SUPP.RECT SUPP.RECT RC PRN (14:30)
[2019-08-11] MEDS ORDERED: DEXTROSE 50%-WATER 50 ML DISP.SYRIN IV PRN (14:30)
[2019-08-11] MEDS ORDERED: *INSULIN REGULAR(HUMULIN R)HUM 100 UNIT/ML VIAL SQ PRN (14:30)
[2019-08-11] MEDS ORDERED: MAGNESIUM HYDROXIDE 30 ML UDC GT PRN (14:30)
[2019-08-11] MEDS ORDERED: CLONIDINE HCL 0.1 MG TABLET GT PRN (14:30)
[2019-08-11] MEDS ORDERED: IPRATROPIUM NEB FS 0.5 MG/2.5 ML AMPUL.NEB IH PRN (14:30)
[2019-08-11] MEDS ORDERED: INSULIN REGULAR, HUMAN 100 UNIT/ML 3 ML VIAL SQ PRN (14:30)
[2019-08-11 16:00] VITALS: BP 108/73
[2019-08-11] MEDS ORDERED: GLUCERNA 1.2 1,000 ML BOTTLE GT PRN (16:30)
[2019-08-11] MEDS ORDERED: Medication Not On Formulary EA (Arginine/Glutamine/Calcium Hmb (Juven Packet) 1 EACH) PO SCH (17:00)
[2019-08-11] MEDS: CHLORHEXIDINE GLUCONATE 15 ML UDC MM SCH (17:07)
[2019-08-11] MEDS: LACTOBACILLUS RHAMNOSUS GG 1 EACH CAP.SPRINK GT SCH (17:07)
[2019-08-11] MEDS: DOCUSATE SODIUM LIQ 100 MG/10 ML UDC GT SCH (17:07)
[2019-08-11] MEDS: BLOOD SUGAR DIAGNOSTIC 1 EACH STRIP VI SCH ×2 (17:32→23:05)
--- NOTE | 2019-08-11 19:00 | NUR ---
PT RESTING IN BED WITH NO S/S OF PAIN OR DISTRESS.SUCTIONED ORAL SECRETIONS FREQUENTLY.PT DROOLS FREQUENTLY EVERY 10-15 MINS EVEN AFTER BEING SUCTIONED.
--- NOTE | 2019-08-11 19:50 | NUR ---
RN OPENING NOTES RECEIVED REPORT FROM CHARU NICOLE, RAMSEY Greer FOUND Pt IN BED. Pt IS OBTUNDED, ON VENT/TRACH. ON TELE MONITOR, TELE READING SR 96. GTUBE FEEDING @30ML/HR, GOAL TO INCREASE TO 70ML/HR. IV ACCESS ON R FEMORAL PICC LINE WITH IVF 1/2NS @75ML/HR. SAFETY MEASURES IN PLACE. BED LOW, LOCKED, HOB ELEVATED, SIDE RAILS UP, CALL LIGHT AND BEDSIDE TABLE WITHIN REACH. WILL CONTINUE TO MONITOR Pt's CONDITION AND SAFETY THROUGHOUT THE NIGHT.
[2019-08-11] MEDS: IPRATROPIUM NEB FS 0.5 MG/2.5 ML AMPUL.NEB IH SCH (19:59)
[2019-08-11 20:00] VITALS: BP 124/72
[2019-08-11] MEDS: ALBUTEROL FS 2.5 MG/3 ML VIAL.NEB IH SCH (20:00)
[2019-08-11] MEDS ORDERED: MEROPENEM 500 MG in IV NS 0.9% 50 ML IV ONE (21:00)
[2019-08-11] MEDS ORDERED: HEPARIN SODIUM, PORCINE 5000 UNITS/1 ML VIAL SQ SCH (21:00)
[2019-08-11] MEDS: INSULIN GLARGINE, 100 UNIT/ML CARTRIDGE SQ SCH (22:00)
[2019-08-11] MEDS: PANTOPRAZOLE 40 MG/PACK PACK GT SCH (23:03)
[2019-08-11] MEDS: VALPROIC ACID 250 MG/5 ML UDC GT SCH (23:03)
[2019-08-11] MEDS: METOPROLOL TARTRATE 50 MG TABLET GT SCH (23:04)
[2019-08-11] MEDS: FAMOTIDINE (20 MG) 20 MG TABLET PO SCH (23:04)
[2019-08-11] MEDS: TAMSULOSIN 0.4 MG CAP.SR.24H GT SCH (23:04)
--- NOTE | 2019-08-11 23:15 | NUR ---
RN NOTES BG 84. DID NOT ADMINISTER LANTUS 12UN. GAVE NO ADDITIONAL COVERAGE AT THIS TIME. WILL CONTINUE TO MONITOR Pt's BG.
[2019-08-12] MEDS ORDERED: VANCOMYCIN 1 GM in IV D5W 250 ML IV SCH ×2
[2019-08-12 00:01] VITALS: BP 126/64
[2019-08-12] MEDS: ALBUTEROL FS 2.5 MG/3 ML VIAL.NEB IH SCH ×4 (02:08→19:14)
[2019-08-12] MEDS: IPRATROPIUM NEB FS 0.5 MG/2.5 ML AMPUL.NEB IH SCH ×4 (02:08→19:14)
[2019-08-12 04:00] VITALS: BP 130/78
--- NOTE | 2019-08-12 04:16 | NUR ---
RT NOTE Pt rec'd trached [facility] Portex [facility] on AC mode. No resp distress or sob noted. Trach is patent and secured. JOB SERVICE CONSULTANT cuff pressure noted. Sx'd for thick mod amt of blood tinged secretions. Alarms are set and audible. Vent plugged into red outlet. Ambu bag bedside. Will continue to monitor. Addendum: 08/12/19 at 0417 by JHONATHAN POLLARD RT Amended: Links added.
[2019-08-12] MEDS: MEROPENEM 500 MG in IV NS 0.9% 100 ML IV SCH ×3 (05:43→21:12)
[2019-08-12] MEDS: IV 1/2NS 1000 ML 1,000 ML IV PRN (05:44)
[2019-08-12 06:18] LABS: BASOPHILS % (AUTO) 0.4 % (0.0-2.0); EOSINOPHILS % (AUTO) 3.4 % (0.0-6.0); HEMATOCRIT 26 % (39-51); HEMOGLOBIN 8.4 g/dL (13.5-17.5); LYMPHOCYTES # (AUTO) 2.1 /CMM (0.8-4.8); LYMPHOCYTES % (AUTO) 24.1 % (20.0-44.0); MEAN CORPUSCULAR HGB CONC 33 g/dl (31.0-36.0); MEAN CORPUSCULAR VOLUME 95 fL (80-96); MONOCYTES # (AUTO) 0.6 /CMM (0.1-1.30); NEUTROPHILS # (AUTO) 5.7 /CMM (1.8-8.9); NEUTROPHILS % (AUTO) 65.1 % (43.0-81.0); PLATELET COUNT (AUTO) 348 /CMM (150-450); RED BLOOD CELL COUNT(AUTO) 2.71 MIL/uL (4.5-6.0); WHITE BLOOD COUNT (AUTO) 8.8 K/uL (4.3-11.0)
--- NOTE | 2019-08-12 06:35 | NUR ---
RN NOTES AC ACCUCHECK BG 83. NO INSULIN COVERAGE NEEDED AT THIS TIME.
[2019-08-12] MEDS: BLOOD SUGAR DIAGNOSTIC 1 EACH STRIP VI SCH ×3 (06:40→18:47)
[2019-08-12 06:52] LABS: ALBUMIN 1.8 g/dL (3.4-5.0); BILIRUBIN,TOTAL 0.2 mg/dL (0.2-1.0); CALCIUM, SERUM 8.7 mg/dL (8.5-10.1); CREATININE 1.1 mg/dL (0.6-1.3); MAGNESIUM 1.5 mg/dL (1.8-2.4); PHOSPHORUS 3.7 mg/dL (2.5-4.9); POTASSIUM 4.3 mmol/L (3.5-5.1); TOTAL PROTEIN, SERUM 9.5 g/dL (6.4-8.2)
--- NOTE | 2019-08-12 06:55 | NUR ---
RN CLOSING NOTES NO SIGNIFICANT CHANGES IN Pt's CONDITION. Pt REMAINS STABLE PER BASELINE. NO S/S OF ACUTE DISTRESS OR SEVERE SOB NOTED DURING THE SHIFT. ALL NEEDS MET AND ATTENDED TO. SAFETY MEASURES IN PLACE. BED LOW, LOCKED, HOB ELEVATED, SIDE RAILS UP, & BED ALARM ON. GTF INCREASED TO 50ML/HR. GOAL IS TO REACH 70ML X24HR. TELE READING SR 85. WILL ENDORSE TO DAYSHIFT RN FOR Pt's LIZETH.
[2019-08-12 07:10] LABS: THYROID STIMULATING HORMONE 0.937 uIU/mL (0.358-3.74)
[2019-08-12 08:00] VITALS: BP 149/88
[2019-08-12] MEDS ORDERED: GLUCERNA 1.2 1,000 ML BOTTLE GT PRN (08:00)
--- NOTE | 2019-08-12 08:00 | NUR ---
MITIGATION SUPERVISOR OPENING NOTES RECEIVED Pt IS OBTUNDED, ON VENT/TRACH. ON TELE MONITOR, TELE READING SR 96. GTUBE FEEDING @50ML/HR, GOAL TO INCREASE TO 70ML/HR. IV ACCESS ON R FEMORAL PICC LINE WITH IVF 1/2NS @75ML/HR. SAFETY MEASURES IN PLACE. BED LOW, LOCKED, HOB ELEVATED, SIDE RAILS UP, CALL LIGHT AND BEDSIDE TABLE WITHIN REACH. WILL CONTINUE TO MONITOR Pt's CONDITION AND SAFETY
[2019-08-12] MEDS ORDERED: Medication Not On Formulary EA (Multivitamins W-Minerals (Multivitamins With Minerals) 1 GT SCH (09:00)
[2019-08-12] MEDS: PROSOURCE / PROSTAT (PYXIS) 30 ML UDC GT SCH (09:28)
[2019-08-12] MEDS: CHLORHEXIDINE GLUCONATE 15 ML UDC MM SCH ×2 (09:28→17:31)
[2019-08-12] MEDS: METOPROLOL TARTRATE 50 MG TABLET GT SCH ×2 (09:29→21:26)
[2019-08-12] MEDS: ASCORBIC ACID 500 MG TABLET GT SCH (09:33)
[2019-08-12] MEDS: MULTIVIT W/MINERALS 1 TAB TABLET PO SCH (09:33)
[2019-08-12] MEDS: FAMOTIDINE (20 MG) 20 MG TABLET PO SCH ×2 (09:33→21:26)
[2019-08-12] MEDS: CALCIUM CARBONATE (1250) 500 MG TABLET GT SCH (09:33)
[2019-08-12] MEDS: BICALUTAMIDE 50 MG TABLET GT SCH (09:33)
[2019-08-12] MEDS: VALPROIC ACID 250 MG/5 ML UDC GT SCH ×2 (09:33→21:25)
[2019-08-12] MEDS: ZINC SULFATE 220 MG CAPSULE PO SCH (09:34)
[2019-08-12] MEDS: LACTOBACILLUS RHAMNOSUS GG 1 EACH CAP.SPRINK GT SCH ×2 (09:34→17:31)
[2019-08-12] MEDS: ENOXAPARIN SODIUM 40 MG/0.4 ML DISP.SYRIN SQ SCH (09:34)
[2019-08-12] MEDS: PANTOPRAZOLE 40 MG/PACK PACK GT SCH ×2 (09:35→21:25)
[2019-08-12] MEDS: DOCUSATE SODIUM LIQ 100 MG/10 ML UDC GT SCH ×2 (09:41→17:31)
[2019-08-12] MEDS: Magnesium 1GM/D5W 100ML PREMIX 100 ML IV SCH ×3 (09:41→12:59)
[2019-08-12] MEDS: ACETAMINOPHEN 650 MG/20.3 ML UDC GT SCH (09:41)
--- NOTE | 2019-08-12 09:57 | NUR ---
WOUND CARE CONSULT: PT PRESENTS WITH FRAGILE SACRAL SCAR, LEFT HEEL ESCHAR AND MULTIPLE SCARS ON LOWER EXTREMITIES, POSTERIO HEAD WOUND, ALL PRESENT ON ADMISSION. RECOMMENDATIONS MADE FOR SKIN PROTECTION AND DISCUSSED WITH NURSING STAFF. PT ON FIRST STEP LOW AIRLOSS MATTRESS. RECOMMEND DPM CONSULT AND SURGICAL CONSULT. DR BEARDEN NOTIFIED OF DPM CONSULT REQUEST AND DR JENNA ONOFRE NOTIFIED OF SURGICAL CONSULT REQUEST. WILL SEE PRN. LEWIS IN AGREEMENT WITH PLAN OF CARE. Addendum: 08/12/19 at 1000 by VANESSA CONTRERAS WNDNU Amended: Links added.
--- NOTE | 2019-08-12 12:00 | NUR ---
PT TOLERATING GT FEEDING AT 60 ML/HR WITH NO RESIDUALS-INCREASE GT FEEDING RATE TO 70 ML/HR AND WILL MONITOR FOR TOLERANCE.HOB ELEVATED WITH ASPIRATION PRECAUTIONS.SUCTIONED SECRETIONS WELL VIA TRACH AND ORALLY.PT SALIVATES EVERY MINUTE AND IS SUCTIONED FREQUENTLY/KEPT CLEAN AND DRY.
[2019-08-12] MEDS: HYDROGEL DRESSING 90 GM TUBE TP SCH (12:59)
[2019-08-12] MEDS ORDERED: EPOETIN ALFA (4000 UNIT) 4,000 UNIT/ML VIAL IJ SCH (13:00)
[2019-08-12] MEDS ORDERED: FLUCONAZOLE IN NS 100 MG in PREMIX 1 EA IV SCH ×2 (13:00)
--- NOTE | 2019-08-12 13:00 | NUR ---
PT HAS ONGOING MERREM IV ATB INFUSING WELL, WILL INFUSE DIFLUCAN IV ATB WHEN MERREM IS COMPLETED IN 3 HRS.
[2019-08-12 16:00] VITALS: BP 144/86
[2019-08-12] MEDS: GLUCERNA 1.2 1,000 ML BOTTLE GT SCH (17:34)
--- NOTE | 2019-08-12 19:25 | NUR ---
CHANGED OF SHIFT REPORT Patient in bed, obtunded, eyes open. Trach intact, on mechanical vent. Sinus rhythm in the Tele monitor. Abdomen presence of Gtube. Locke cath in place, nephrostomy right intact. Isolation precaution, maintained safety.
[2019-08-12 20:00] VITALS: BP 137/94
[2019-08-12] MEDS ORDERED: FLUCONAZOLE (100 MG) 100 MG TABLET PO SCH (20:00)
[2019-08-12 20:11] VITALS: BP 137/99
[2019-08-12] MEDS: TAMSULOSIN 0.4 MG CAP.SR.24H GT SCH (21:27)
--- NOTE | 2019-08-12 21:32 | NUR ---
PT RCVD TRACH'D ON MECHANICAL VENT WITH CHARTED SETTINGS. PT DELMAR TX WELL. SX DONE. PT TRACH IS PATENT AND SECURE. VENT ALARMS APPEAR TO BE FUNCTIONING PROPERLY. VENT PLUGGED INTO RED OUTLET. AMBU BAG AT BEDSIDE. NO SOB NOTED. Addendum: 08/12/19 at 2132 by LEROY VALLEJO RT Amended: Links added.
[2019-08-12] MEDS: INSULIN GLARGINE, 100 UNIT/ML CARTRIDGE SQ SCH (23:20)
--- NOTE | 2019-08-12 23:23 | NUR ---
ACCU CHECK FSBS in the low 80's and high 100's informed Dr. Vaca, ordered to D/c insulin lantus at hs.
[2019-08-12] MEDS ORDERED: DEXTROSE 50%-WATER 50 ML DISP.SYRIN IV PRN (23:30)
[2019-08-12] MEDS: BLOOD SUGAR DIAGNOSTIC 1 EACH STRIP IN SCH (23:45)
[2019-08-12] MEDS: INSULIN REGULAR, HUMAN 100 UNIT/ML 3 ML VIAL SQ PRN (23:45)
[2019-08-13] MEDS ORDERED: INSULIN REGULAR, HUMAN 100 UNIT/ML 3 ML VIAL SQ SCH
[2019-08-13] MEDS ORDERED: BLOOD SUGAR DIAGNOSTIC 1 EACH STRIP IN SCH
[2019-08-13 00:01] VITALS: BP 133/84
[2019-08-13 00:30] VITALS: BP 133/84
[2019-08-13] MEDS: IPRATROPIUM NEB FS 0.5 MG/2.5 ML AMPUL.NEB IH SCH ×3 (00:45→13:23)
[2019-08-13] MEDS: ALBUTEROL FS 2.5 MG/3 ML VIAL.NEB IH SCH ×3 (00:45→13:23)
[2019-08-13] MEDS: IV 1/2NS 1000 ML 1,000 ML IV PRN (01:51)
[2019-08-13 04:11] VITALS: BP 128/91
[2019-08-13] MEDS: MEROPENEM 500 MG in IV NS 0.9% 100 ML IV SCH ×2 (04:31→12:34)
[2019-08-13] MEDS: INSULIN REGULAR, HUMAN 100 UNIT/ML 3 ML VIAL SQ PRN (06:13)
[2019-08-13] MEDS: BLOOD SUGAR DIAGNOSTIC 1 EACH STRIP IN SCH ×2 (06:13→12:32)
--- NOTE | 2019-08-13 06:15 | NUR ---
END OF SHIFT REPORT Patient in bed, eyes open, obtunded. Sinus rhythm in the Tele monitor. Trach intact, vent setting remains the same. Suction oral secretions at times, Neb. per RT. Gtube feeding at 70ml/hr goal rate, maintained upright position, aspiration precaution. Remains on IV antibiotic, Afebrile overnight. PICC line intact. Locke cath/Right nephrostomy to gravity, output documented. Blood culture result pending. Isolation precaution, PPE utilized.
[2019-08-13 06:26] LABS: BASOPHILS # (AUTO) 0.1 /CMM (0.0-0.2); BASOPHILS % (AUTO) 0.8 % (0.0-2.0); EOSINOPHILS % (AUTO) 4.3 % (0.0-6.0); HEMATOCRIT 25 % (39-51); HEMOGLOBIN 8.2 g/dL (13.5-17.5); LYMPHOCYTES # (AUTO) 2.2 /CMM (0.8-4.8); LYMPHOCYTES % (AUTO) 26.9 % (20.0-44.0); MEAN CORPUSCULAR HGB CONC 33 g/dl (31.0-36.0); MEAN CORPUSCULAR VOLUME 94 fL (80-96); MONOCYTES # (AUTO) 0.6 /CMM (0.1-1.30); MONOCYTES % (AUTO) 7.2 % (2.0-12.0); NEUTROPHILS # (AUTO) 4.9 /CMM (1.8-8.9); NEUTROPHILS % (AUTO) 60.8 % (43.0-81.0); PLATELET COUNT (AUTO) 309 /CMM (150-450); RED BLOOD CELL COUNT(AUTO) 2.65 MIL/uL (4.5-6.0)
[2019-08-13 06:55] LABS: CALCIUM, SERUM 8.6 mg/dL (8.5-10.1); POTASSIUM 4.1 mmol/L (3.5-5.1)
[2019-08-13 08:00] VITALS: BP_SYST 156; BP_SYST 158; BP_DIAS 90; BP_DIAS 94
[2019-08-13] MEDS: ENOXAPARIN SODIUM 40 MG/0.4 ML DISP.SYRIN SQ SCH (09:56)
[2019-08-13] MEDS: CHLORHEXIDINE GLUCONATE 15 ML UDC MM SCH (09:57)
[2019-08-13] MEDS: DOCUSATE SODIUM LIQ 100 MG/10 ML UDC GT SCH (09:57)
[2019-08-13] MEDS: FAMOTIDINE (20 MG) 20 MG TABLET PO SCH (09:58)
[2019-08-13] MEDS: ASCORBIC ACID 500 MG TABLET GT SCH (09:58)
[2019-08-13] MEDS: MULTIVIT W/MINERALS 1 TAB TABLET PO SCH (09:58)
[2019-08-13] MEDS: CALCIUM CARBONATE (1250) 500 MG TABLET GT SCH (09:58)
[2019-08-13] MEDS: LACTOBACILLUS RHAMNOSUS GG 1 EACH CAP.SPRINK GT SCH (09:58)
[2019-08-13] MEDS: BICALUTAMIDE 50 MG TABLET GT SCH (10:00)
[2019-08-13] MEDS: PANTOPRAZOLE 40 MG/PACK PACK GT SCH (10:00)
[2019-08-13] MEDS: PROSOURCE / PROSTAT (PYXIS) 30 ML UDC GT SCH (10:00)
[2019-08-13] MEDS: ZINC SULFATE 220 MG CAPSULE PO SCH (10:07)
[2019-08-13] MEDS: VALPROIC ACID 250 MG/5 ML UDC GT SCH (10:07)
[2019-08-13] MEDS: ACETAMINOPHEN 650 MG/20.3 ML UDC GT SCH (10:07)
[2019-08-13] MEDS: HYDROGEL DRESSING 90 GM TUBE TP SCH (10:08)
[2019-08-13] MEDS: METOPROLOL TARTRATE 50 MG TABLET GT SCH (10:08)
[2019-08-13] MEDS: GLUCERNA 1.2 1,000 ML BOTTLE GT SCH (10:17)
[2019-08-13] MEDS ORDERED: [UNRECOGNIZED DRUG - CODE] IV (10:21)
[2019-08-13 12:00] VITALS: BP 138/80
[2019-08-13] MEDS ORDERED: FLUCONAZOLE (100 MG) 100 MG TABLET PO SCH (13:00)
--- NOTE | 2019-08-13 16:00 | NUR ---
DISCHARGED PT TO [facility]IA AMBULANCE WITH STABLE V/S.REPORT CALLED IN TO COREY BUSBY FRONT DESK REPRESENTATIVE OF [facility].WITH NEW PARK CATH REPLACED TODAY AND NEPHROSTOMY TUBE TO PARK BAG REMAINS PATENT AND INTACT DRAINING YELLOW URINE EMPTIED WITH 400 ML/ URINE OUTPUT.NO S/S OF SOB OR DISTRESS.2 LUMEN PICC LINE TO RT FEMORAL REMAINS PATENT AND INTACT WITH DRESSING CLEAN AND DRY.NOTIFIED PT'S DAUGHTER VIA PHONE ABOUT THE TRANSFER AND ENDORSED TO COREY BUSBY FOR CONTINUATION OF PT'S IV ATB VFEND BID FOR 7 DAYS FOR UTI.
== END 2019-08-13 16:00 | DRG 720 ==
LOC: ER 03:09 → TELE 05:44
PROVIDERS: ADMIT Registered Nurse; ATTEND Registered Nurse
PROC: 5A1945Z Respiratory Ventilation, 24-96 Consecutive Hours (ICD-10-PCS; principal; 2019-08-11)
DX: A41.9 Sepsis, unspecified organism (principal); Z99.11 Dependence on respirator [ventilator] status; R40.3 Persistent vegetative state; J95.851 Ventilator associated pneumonia; G92 Toxic encephalopathy; J96.11 Chronic respiratory failure with hypoxia; N17.9 Acute kidney failure, unspecified; Z93.0 Tracheostomy status; E11.22 Type 2 diabetes mellitus with diabetic chronic kidney disease; L89.623 Pressure ulcer of left heel, stage 3; R13.10 Dysphagia, unspecified; R65.20 Severe sepsis without septic shock; G40.909 Epilepsy, unspecified, not intractable, without status epilepticus; Z93.1 Gastrostomy status; E86.0 Dehydration; J98.11 Atelectasis; C61 Malignant neoplasm of prostate; Z87.440 Personal history of urinary (tract) infections; Z93.6 Other artificial openings of urinary tract status; Y83.3 Surgical operation with formation of external stoma as the cause of abnormal reaction of the patient, or of later complication, without mention of misadventure at the time of the procedure; Y72.8 Miscellaneous otorhinolaryngological devices associated with adverse incidents, not elsewhere classified; Y92.129 Unspecified place in nursing home as the place of occurrence of the external cause; E87.5 Hyperkalemia; F09 Unspecified mental disorder due to known physiological condition; K21.9 Gastro-esophageal reflux disease without esophagitis; Z79.4 Long term (current) use of insulin; B37.49 Other urogenital candidiasis; D64.9 Anemia, unspecified; I25.10 Atherosclerotic heart disease of native coronary artery without angina pectoris; M24.571 Contracture, right ankle; M24.572 Contracture, left ankle; E11.51 Type 2 diabetes mellitus with diabetic peripheral angiopathy without gangrene; I12.9 Hypertensive chronic kidney disease with stage 1 through stage 4 chronic kidney disease, or unspecified chronic kidney disease; N18.9 Chronic kidney disease, unspecified; Z74.01 Bed confinement status; S01.00XA Unspecified open wound of scalp, initial encounter; C79.9 Secondary malignant neoplasm of unspecified site
CPT/HCPCS: 31720; 36415; 71045-TC; 80048-TC; 80053-TC; 80061-TC; 80076-TC; 80202-TC; 81000-TC; 82962-TC; 83605-TC; 83735-TC; 84100-TC; 84443-TC; 84484-TC; 85025-TC; 85730-TC; 87040-TC; 87081-TC; 87086-TC; 94002-TC; 94003-TC; 94760-TC; A4216; A6248; A6403; G0378; J0696; J0885; J1450; J1650; J1815; J2185; J2543; J3370; J3475; J3490; J7030; J7050; J7060

== ENCOUNTER 2019-08-23 09:27 | Inpatient (IN) | payer MEDICAID ==
[~2019-08-23] VITALS: Ht 170.2 cm; Wt 75.7 kg
[~2019-08-23 09:27] MED LIST changes: -ACET-2605 GT; -AMLO5TAB9 GT; +EPOE4000 SQ; +NUTR1PAC14 PO; +ZINC220C6 GT; +[UNRECOGNIZED DRUG - CODE] IV
--- NOTE | 2019-08-23 09:30 | NUR ---
PT BALDOMERO LOPEZ 78 from [facility] "Tachy, hypotension" PT IS AAOX0 RESPONDS TO PAIN STIMULI, ON MECH VENT VIA TRACH, HOOKED TO AUTO WASHER, KEPT RESTED AND COMFORTABLE, WILL CONTINUE TO MONITOR.
--- NOTE | 2019-08-23 09:33 | NUR ---
PT SEEN AND EXAMINED BY .
--- NOTE | 2019-08-23 09:40 | NUR ---
BLOOD DRAWN AND SENT TO LAB.
--- NOTE | 2019-08-23 09:45 | NUR ---
URINE SPECIMEN COLLECTED AND SENT TO LAB.
[2019-08-23 09:51] LABS: BILIRUBIN,URINE Negative (NEGATIVE); BLOOD, URINE Moderate Ery/uL (NEGATIVE); COLOR,URINE Yellow (YELLOW); KETONES,URINE Negative (NEGATIVE); LEUKOCYTE ESTERASE ,URINE Large (NEGATIVE); NITRITE, URINE Negative (NEGATIVE); PH,URINE 6.5 (5.0-8.0); PROTEIN,URINE >=300 mg/dl (NEGATIVE); UGLUCOSE Negative (NEGATIVE); UROBILINOGEN,URINE 0.2 EU/dL (0.2)
[2019-08-23 09:52] LABS: BASOPHILS % (AUTO) 0.2 % (0.0-2.0); EOSINOPHILS % (AUTO) 0.4 % (0.0-6.0); HEMATOCRIT 22 % (39-51); LYMPHOCYTES # (AUTO) 2.8 /CMM (0.8-4.8); LYMPHOCYTES % (AUTO) 20.2 % (20.0-44.0); MEAN CORPUSCULAR HGB CONC 32 g/dl (31.0-36.0); MEAN CORPUSCULAR VOLUME 94 fL (80-96); MONOCYTES # (AUTO) 2.6 /CMM (0.1-1.30); MONOCYTES % (AUTO) 18.8 % (2.0-12.0); NEUTROPHILS # (AUTO) 8.3 /CMM (1.8-8.9); NEUTROPHILS % (AUTO) 60.4 % (43.0-81.0); PLATELET COUNT (AUTO) 269 /CMM (150-450); WHITE BLOOD COUNT (AUTO) 13.7 K/uL (4.3-11.0)
--- NOTE | 2019-08-23 09:54 | NUR ---
LEGAL RECEPTIONIST AT BEDSIDE FOR XRAY.
[2019-08-23 09:55] LABS: HEMOGLOBIN 6.9 g/dL (13.5-17.5)
[2019-08-23 09:58] LABS: APPEARANCE,URINE CLOUDY (CLEAR)
--- NOTE | 2019-08-23 09:58 | NUR ---
RT RECD PT FOR LOW BP TRACHED INTACT SECURED ON MECH VENT ON FOLLOWING SETTINGS AC 12 500 +5 40% BAG MASK AT HOB ALARMS ON AND AUDIBLE SX LARGE AMOUNT OF THICK YELLOW SECRETIONS NO RESP DISTRESS ATT WILL CONT TO MONITOR Addendum: 08/23/19 at 1002 by MARGARETH POOL RT Amended: Links added.
[2019-08-23 09:59] LABS: WBC,URINE TOO NUMEROUS TO COUN /HPF (0-3)
[2019-08-23 10:00] LABS: RBC,URINE 20-30 /HPF (0-2); SQUAMOUS EPITHELIAL CELL,UR Rare /HPF (None Seen)
[2019-08-23] MEDS ORDERED: IV NS 0.9% 1,000 ML BAG IV ONE ×2 (10:00→10:30)
[2019-08-23 10:01] LABS: BACTERIA,URINE Moderate /HPF (None Seen)
[2019-08-23] MEDS ORDERED: NUTR1PAC14 GT (10:07)
[2019-08-23] MEDS ORDERED: CHLO118L6 TP (10:07)
[2019-08-23] MEDS ORDERED: AMIN30LI2 GT (10:07)
[2019-08-23] MEDS ORDERED: CALC-7 GT (10:07)
[2019-08-23] MEDS ORDERED: ACET-2605 GT (10:07)
[2019-08-23] MEDS ORDERED: PANT40SU2 GT (10:07)
[2019-08-23 10:13] LABS: ALANINE AMINOTRANSFERASE 15 U/L (12-78); ALBUMIN 1.5 g/dL (3.4-5.0); ALKALINE PHOSPHATASE 239 U/L (46-116); ASPARTATE AMINOTRANSFERASE 34 U/L (15-37); BILIRUBIN,DIRECT 0.2 mg/dL (0.0-0.2); BILIRUBIN,TOTAL 0.3 mg/dL (0.2-1.0); CALCIUM, SERUM 9.7 mg/dL (8.5-10.1); CARBON DIOXIDE 24 mmol/L (21-32); CHLORIDE 96 mmol/L (98-107); CREATININE 3.8 mg/dL (0.6-1.3); GLUCOSE 112 mg/dL (74-106); POTASSIUM 5.8 mmol/L (3.5-5.1); SODIUM SERUM 128 mmol/L (136-145); TOTAL PROTEIN, SERUM 9.1 g/dL (6.4-8.2)
[2019-08-23 10:20] LABS: UREA NITROGEN, BLOOD 158 mg/dL (7-18)
[2019-08-23 10:21] LABS: B-TYPE NATRIURETIC PEPTIDE 5162 PG/ML (0-125)
--- NOTE | 2019-08-23 10:28 | NUR ---
Emmett lorenzo in [facility] - 08/23/19 at 1031 by HECTOR AMBULANZ ETA 15-20 MINS. TRIP # [id number]
[2019-08-23] MEDS ORDERED: PIPERACILLIN /TAZOBACTAM 3.375 G in IV D5W 50 ML IV ONE (10:30)
--- NOTE | 2019-08-23 10:35 | NUR ---
EPIC PAGED. AWAITING CALL BACK FROM. DR AMEZQUITA
[2019-08-23 10:53] LABS: BAND % (MANUAL) 1 % (0.0-5.0); EOSINOPHILS % (MANUAL) 1 % (0-4); LYMPHOCYTES % (MANUAL) 26 % (16-48); MONOCYTES % (MANUAL) 21 % (0-11.0); NEUTROPHILS % (MANUAL) 51 (42-76)
[2019-08-23] MEDS ORDERED: D5W IV ONE (11:00)
[2019-08-23] MEDS ORDERED: VANCOMYCIN 1 GM in IV D5W 250ml IV ONE (11:00)
[2019-08-23] MEDS ORDERED: VANCOMYCIN HCL IV ONE (11:00)
[2019-08-23] MEDS ORDERED: LORAZEPAM INJ 2 MG/ML VIAL IM ONE (11:30)
[2019-08-23] MEDS ORDERED: HALOPERIDOL LACTATE INJ 5 MG/ML VIAL IM ONE (11:30)
--- NOTE | 2019-08-23 11:30 | NUR ---
REPORT GIVEN TO COREY RUEDA FOR LIZETH, WITH ONGOING IVF AND ANTIBIOTIC.
--- NOTE | 2019-08-23 11:34 | NUR ---
GERALDINE/RN REPORT FROM ER REPORT RECEIVED FROM ER NURSE ALEX FOR PT TO BE ADMITTED FOR SEPSIS, UNDER THE CARE OF DR. AMEZQUITA. AWAITING FOR PT'S ARRIVAL.
--- NOTE | 2019-08-23 11:53 | NUR ---
GERALDINE/HOTEL LOBBY CONCIERGE TO GERALDINE - TATE 101 PT ARRIVED VIA GURNEY ACCOMPANIED BY ER NURSE ALEX, RT AND VICE PRESIDENT RESIDENTIAL SOLAR SALES. PT TRANSFERRED TO HOSPITAL BED, PT IS OBTUNDED, OPEN EYES, NO GRIMACING NOTED OR ACUTE CHANGE OF CONDITION. PT CONNECTED TO VENTILATOR RATES SET PRESCRIBED, TO TELE BOX PLACED, SINUS TACHY, PICC LINE ON RIGHT THIGH INTACT POSITIVE OF BLOOD RETURN, FLUSHED, PATENT, NO S/S OF INFECTION. GT INTACT FLUSHED, PATENT. NEPHROSTOMY TUNE ON RIGHT UPPER BACK INTACT NOTED WITH CLOUDY CHRISTOPHE URINE OUTPUT, PARK CATHETER INTACT WITH CLOUDY CHRISTOPHE URINE OUTPUT. PT ARRIVED WITH NS BOLUS BEING ADMINISTERED. ADMITTING PROTOCOLS ON GOING. CL WITHIN REACHED AND SAFETY MAINTAINED.
[2019-08-23 12:00] VITALS: BP 93/54
[2019-08-23] MEDS ORDERED: IPRATROPIUM NEB FS 0.5 MG/2.5 ML AMPUL.NEB IH PRN (14:00)
[2019-08-23] MEDS ORDERED: CLONIDINE HCL 0.1 MG TABLET GT PRN (14:00)
[2019-08-23] MEDS ORDERED: ALBUTEROL FS 2.5 MG/3 ML VIAL.NEB IH PRN (14:00)
[2019-08-23] MEDS ORDERED: BISACODYL SUPP (10 MG) 10 MG/SUPP.RECT SUPP.RECT RC PRN (14:00)
[2019-08-23] MEDS ORDERED: ACETAMINOPHEN 650 MG/SUPP.RECT RC PRN (15:30)
[2019-08-23] MEDS ORDERED: ONDANSETRON HCL/PF 4 MG/2 ML VIAL IVP PRN (15:30)
[2019-08-23] MEDS ORDERED: IV NS 0.9% 1,000 ML IV PRN (15:30)
[2019-08-23] MEDS ORDERED: Z GUARD REMEDY 2 OZ OINT TP PRN (15:30)
[2019-08-23] MEDS ORDERED: FEE PK DOSING 1 MIN EA MC ONE (15:56)
[2019-08-23 16:00] VITALS: BP_SYST 80; BP_SYST 91; BP_DIAS 45; BP_DIAS 48
[2019-08-23] MEDS: IV NS 0.9% 1,000 ML IV PRN (16:08)
[2019-08-23] MEDS: MEROPENEM 500 MG in IV NS 0.9% 50 ML IV SCH (17:10)
[2019-08-23] MEDS: ACIDOPHILUS/BULGARICUS 1 EACH TAB.CHEW GT SCH (17:10)
[2019-08-23] MEDS: CHLORHEXIDINE GLUCONATE 15 ML UDC MM SCH (17:10)
[2019-08-23 19:27] VITALS: BP 91/53
--- NOTE | 2019-08-23 19:29 | NUR ---
TD RN NOTES RECEIVED PT ON BED. [facility] NO RESPIRATORY DISTRESS NOTED. ON TELE MONITOR ST 107. IV ACCESS ON R FEMORAL PICC WITH NS RUNNING @ 125CHR. IV ACCESS PATENT AND INTACT. NEPHROSTOMY TUBE DRAINING YELLOW URINE. HEAD OF BED ELEVATED. SIDE RAILS UP. CALL LIGHT WITHIN REACH. BED ALARM ON. BED IN LOW AND LOCKED POSITION. WILL MONITOR PT CLOSELY.
--- NOTE | 2019-08-23 19:30 | NUR ---
GERALDINE/RN AM SHIFT END NOTES NO ACUTE CHANGE OF CONDITION NOTED SINCE PT WAS ADMITTED. ALL NEEDS MET. BLOOD BANK CALLED TO NOTIFY 1 UNIT OF [facility] IS READY, WILL ENDORSED TO PM NURSE TO ADMINISTER. PT IS ENDORSED TO PM NURSE TO CONTINUE CARE. CL WITHIN REACHED AND SAFETY MAINTAINED.
[2019-08-23 19:43] VITALS: BP 94/56
[2019-08-23 20:00] VITALS: BP 91/53
[2019-08-23] MEDS: VALPROIC ACID 250 MG/5 ML UDC GT SCH (20:51)
[2019-08-23] MEDS: METOPROLOL TARTRATE 50 MG TABLET PO SCH (20:51)
[2019-08-23] MEDS: GLUCERNA 1.2 1,000 ML BOTTLE NG PRN (20:51)
[2019-08-23] MEDS: PANTOPRAZOLE 40 MG/PACK PACK GT SCH (20:51)
[2019-08-23] MEDS: HEPARIN SODIUM, PORCINE 5000 UNITS/1 ML VIAL SQ SCH (20:51)
[2019-08-23] MEDS: TAMSULOSIN 0.4 MG CAP.SR.24H GT SCH (20:52)
--- NOTE | 2019-08-23 20:55 | NUR ---
TD RN NOTES HEPARIN NOT GIVEN HEMOGLOBIN OF 6.9
[2019-08-23] MEDS: INSULIN GLARGINE, 100 UNIT/ML CARTRIDGE SQ SCH (21:25)
--- NOTE | 2019-08-23 21:25 | NUR ---
TD RN NOTES BLOOD SUGAR OF 68. GIVEN JUICE, WILL RECHECK BS IN 30MINS.
[2019-08-23 21:32] VITALS: BP 101/63
--- NOTE | 2019-08-23 21:34 | NUR ---
TD RN NOTES PER SUE ALEXIS TO CONTINUE TUBE FEEDING FROM SNF.
--- NOTE | 2019-08-23 21:41 | NUR ---
TD RN NOTES BLOOD TRANSFUSION DONE. NO ACUTE REACTION NOTED.
[2019-08-23] MEDS ORDERED: INSULIN GLARGINE,BASAGLAR 100 UNIT/ML INSULN.PEN SQ SCH (22:00)
[2019-08-24] VITALS: BP 97/60
[2019-08-24] MEDS: IV NS 0.9% 1,000 ML IV PRN ×2 (02:41→13:13)
[2019-08-24] MEDS: MEROPENEM 500 MG in IV NS 0.9% 50 ML IV SCH ×2 (03:12→16:52)
[2019-08-24 04:00] VITALS: BP 102/55
[2019-08-24] MEDS: VALPROIC ACID 250 MG/5 ML UDC GT SCH ×3 (04:07→21:24)
--- NOTE | 2019-08-24 04:17 | NUR ---
TD RN NOTES NOTED SCANTY BLEEDING IN STOMA. HOLDING GTUBE FEEDING FOR NOW, NO RESIDUAL NOTED. CHARGE NURSE INFORMED.
[2019-08-24 06:25] LABS: BASOPHILS % (AUTO) 0.3 % (0.0-2.0); EOSINOPHILS % (AUTO) 0.8 % (0.0-6.0); HEMATOCRIT 21 % (39-51); LYMPHOCYTES # (AUTO) 1.1 /CMM (0.8-4.8); LYMPHOCYTES % (AUTO) 13.9 % (20.0-44.0); MEAN CORPUSCULAR HGB CONC 33 g/dl (31.0-36.0); MEAN CORPUSCULAR VOLUME 94 fL (80-96); MONOCYTES # (AUTO) 1.7 /CMM (0.1-1.30); MONOCYTES % (AUTO) 21.3 % (2.0-12.0); NEUTROPHILS # (AUTO) 5.2 /CMM (1.8-8.9); NEUTROPHILS % (AUTO) 63.7 % (43.0-81.0); PLATELET COUNT (AUTO) 221 /CMM (150-450); RED BLOOD CELL COUNT(AUTO) 2.19 MIL/uL (4.5-6.0); WHITE BLOOD COUNT (AUTO) 8.1 K/uL (4.3-11.0)
[2019-08-24 06:43] LABS: HEMOGLOBIN 6.7 g/dL (13.5-17.5)
[2019-08-24 06:45] LABS: CHOLESTEROL 28 mg/dL (<200); LDL 13 mg/dL (0-99); THYROID STIMULATING HORMONE 2.933 uIU/mL (0.358-3.74); TRIGLYCERIDES 95 mg/dL (30-150)
[2019-08-24 06:46] LABS: ALANINE AMINOTRANSFERASE 9 U/L (12-78); ALKALINE PHOSPHATASE 204 U/L (46-116); ASPARTATE AMINOTRANSFERASE 25 U/L (15-37); BILIRUBIN,TOTAL 0.8 mg/dL (0.2-1.0); CALCIUM, SERUM 8.1 mg/dL (8.5-10.1); CARBON DIOXIDE 20 mmol/L (21-32); CHLORIDE 102 mmol/L (98-107); CREATININE 3.2 mg/dL (0.6-1.3); GLUCOSE 99 mg/dL (74-106); HDL CHOLESTEROL < 10 mg/dL (40-60); MAGNESIUM 1.9 mg/dL (1.8-2.4); PHOSPHORUS 1.9 mg/dL (2.5-4.9); POTASSIUM 4.9 mmol/L (3.5-5.1); SODIUM SERUM 132 mmol/L (136-145); TOTAL PROTEIN, SERUM 7.2 g/dL (6.4-8.2)
[2019-08-24 06:47] LABS: ALBUMIN 1.1 g/dL (3.4-5.0); UREA NITROGEN, BLOOD 134 mg/dL (7-18)
--- NOTE | 2019-08-24 06:47 | NUR ---
TD RN NOTES PAGED FUNERAL PRE ARRANGEMENT SPECIALIST FOR HEMOGLOBIN OF 6.7
--- NOTE | 2019-08-24 06:51 | NUR ---
TD RN NOTES PER DR POPE, WAIT FOR IRON PANEL AND REPEAT H/H IN 4H. NO BLOOD TRANSFUSION ORDER.
[2019-08-24 07:13] LABS: IRON, SERUM 34 ug/dl (50-175); TOTAL IRON BINDING CAPACITY 98 ug/dl (250-450)
--- NOTE | 2019-08-24 07:20 | NUR ---
TD RN NOTES NO ACUTE CHANGES NOTED DURING THE SHIFT. PROVIDED COMFORT AND SAFETY. NO ACTIVE BLEEDING NOTED. WILL ENDORSE TO THE AM NURSE FOR CONTINUITY OF CARE.
--- NOTE | 2019-08-24 07:28 | NUR ---
RT Pt received trached on mechanical ventilation with noted settings. Pt is awake but does not follow commands. Vent is plugged into red outlet. No SOB or respiratory distress noted. Addendum: 08/24/19 at 1416 by GABI JOY RT Amended: Links added.
[2019-08-24 08:00] VITALS: BP 101/49
--- NOTE | 2019-08-24 08:00 | NUR ---
GERALDINE/RN AM SHIFT INITIAL NOTES RECEIVED PT ASLEEP IN BED, PT OBTUNDED, NO GRIMACING OR ACUTE CHANGE OF CONDITION NOTED, ON VENTILATOR WITH RATES SET PRESCRIBED, SATURATING @ 99%, RESPIRATIONS EVEN & UNLABORED, LUNG SOUNDS DIMINISHED, SUCTIONED FOR AIRWAY CLEARANCE. ON TELE WITH SINUS TACHY, HR 117. PARK CATHETER AND NEPHROSTOMY TUBE INTACT WITH CLOUDY CHRISTOPHE COLORED URINE OUTPUT. PICC LINE NOTED WITH POSITIVE BLOOD RETURN WITH ON GOING INFUSION OF NS @ 125CC/HR, GT FEEDING HELD PER PM NURSE REPORT NOTED BLEEDING ON STOMA SITE, RE-ASSESSED NOTED FIRM/HARD TO THE TOUCH. WILL FOLLOW-UP WITH PRIMARY. PT IS COMFORTABLE, SCHEDULED AM MEDS TO BE GIVEN. CL WITHIN REACHED AND SAFETY MAINTAINED. ON GOING MONITORING.
[2019-08-24] MEDS ORDERED: HYDROGEL DRESSING 90 GM TUBE TP PRN (08:30)
[2019-08-24 08:33] LABS: LYMPHOCYTES % (MANUAL) 18 % (16-48); MONOCYTES % (MANUAL) 20 % (0-11.0); NEUTROPHILS % (MANUAL) 62 (42-76)
--- NOTE | 2019-08-24 08:35 | NUR ---
WOUND CARE CONSULT: PT PRESENTS WITH SACRAL SCARRING, INCONTINENCE ASSOCIATED SKIN DAMAGE TO PERIANAL AREA, SKIN TEAR TO ABDOMEN, SCARS AND WOUNDS TO LOWER EXTREMITIES AND STAGE 4 OCCIPITAL ULCER, ALL PRESENT ON ADMISSION. DR BEARDEN NOTIFIED OF DPM CONSULT REQUEST AND DR JENNA ONOFRE NOTIFIED OF SURGICAL CONSULT REQUEST. FIRST STEP LOW AIRLOSS MATTRESS ORDERED. RECOMMENDATIONS MADE FOR WOUND CARE AND SKIN PROTECTION. DISCUSSED WITH NURSING STAFF. DEFER TO DPM FOR LOWER EXTREMITIES. HEELS FLOATED. WILL SEE PRN. LEWIS IN AGREEMENT WITH PLAN OF CARE. Addendum: 08/24/19 at 0838 by VANESSA CONTRERAS WNDNU Amended: Links added.
[2019-08-24] MEDS: PROSOURCE / PROSTAT (PYXIS) 30 ML UDC GT SCH (08:43)
[2019-08-24] MEDS: CALCIUM CARB 250MG /VITAMIN D 1 UDTAB GT SCH (08:44)
[2019-08-24] MEDS: PANTOPRAZOLE 40 MG/PACK PACK GT SCH ×2 (08:44→21:24)
[2019-08-24] MEDS: HEPARIN SODIUM, PORCINE 5000 UNITS/1 ML VIAL SQ SCH ×2 (08:44→21:00)
[2019-08-24] MEDS: BICALUTAMIDE 50 MG TABLET GT SCH (08:44)
[2019-08-24] MEDS: ZINC SULFATE 220 MG CAPSULE GT SCH (08:44)
[2019-08-24] MEDS: CHLORHEXIDINE GLUCONATE 15 ML UDC MM SCH ×2 (08:44→16:53)
[2019-08-24] MEDS: METOPROLOL TARTRATE 50 MG TABLET PO SCH ×2 (08:45→21:00)
[2019-08-24] MEDS: HYDROGEL DRESSING 90 GM TUBE TP SCH (08:45)
[2019-08-24] MEDS: ACIDOPHILUS/BULGARICUS 1 EACH TAB.CHEW GT SCH ×3 (08:45→16:53)
[2019-08-24] MEDS: ASCORBIC ACID 500 MG TABLET GT SCH (08:45)
[2019-08-24] MEDS: VANCOMYCIN 0.75 GM in IV D5W 250 ML IV SCH (10:11)
[2019-08-24 11:09] LABS: HEMOGLOBIN 7.5 g/dL (13.5-17.5)
[2019-08-24] MEDS ORDERED: NEUTRA PHOS 1 POWD.PACKET GT ONE (11:30)
[2019-08-24 11:32] LABS: ABG BASE EXCESS -3.8 mmol/L; ABG PCO2 35.3 mmHg (35.0-45.0); ABG PH 7.387 (7.350-7.450); AaDO2 137.6 mmHg; COHb 0.7 % (0.5-1.5); MetHb 0.7 % (0.0-1.5); O2Hb 96.6 % (94.0-97.0); PEEP,BG 0 cm H2O; SITE, ABG Left Radial; VT, ABG 500 mL
[2019-08-24 12:00] VITALS: BP 131/92
[2019-08-24 15:20] LABS: OCCULT BLOOD STOOL NEGATIVE (NEGATIVE)
[2019-08-24 16:00] VITALS: BP 103/56
[2019-08-24] MEDS: EPOETIN ALFA (4000 UNIT) 4,000 UNIT/ML VIAL SQ SCH (16:51)
--- NOTE | 2019-08-24 19:30 | NUR ---
GERALDINE/RN AM SHIFT END NOTES ALL NEEDS MET. NO ACUTE CHANGE OF CONDITION NOTED DURING THEN SHIFT. GT FEEDING STILL ON HOLD D/T NOTED BLEEDING AND DRAINING OF GASTRIC CONTENT FROM THE GT STOMA. PRIMARY IS AWARE. PT TO HAVE CT OF ABDOMEN AND PELVIS WITHOUT CONTRAST AND WILL ALSO BE SEEN BY GI DOCTOR. PT ENDORSED TO PM NURSE TO CONTINUE CARE. CL WITHIN REACHED AND SAFETY MAINTAINED.
[2019-08-24 20:00] VITALS: BP 110/68
[2019-08-24] MEDS: TAMSULOSIN 0.4 MG CAP.SR.24H GT SCH (21:27)
[2019-08-24] MEDS: INSULIN GLARGINE, 100 UNIT/ML CARTRIDGE SQ SCH (21:50)
--- NOTE | 2019-08-24 21:55 | NUR ---
RN NOTES, LANTUS NOT ADMINISTERED AT THIS TIME, PATIENT NPO, ALSO METOPROLOL NOT ADMINISTERED, PATIENT WITH HIGH HR, PER PRIOR NURSE TENT TO BE HYPOTENSIVE BP 110/68.
[2019-08-25] VITALS: BP 107/56
--- NOTE | 2019-08-25 01:41 | NUR ---
RN NOTES, RECEIVED PATIENT ASLEEP IN BED, PT OBTUNDED, NO GRIMACING OR ACUTE CHANGE OF CONDITION NOTED, ON VENTILATOR WITH RATES SET PRESCRIBED, SATURATING @ 99%, RESPIRATIONS EVEN & UNLABORED, LUNG SOUNDS DIMINISHED, SUCTIONED FOR AIRWAY CLEARANCE. ON TELE WITH SINUS TACHY, HR 117. PARK CATHETER AND NEPHROSTOMY TUBE INTACT WITH CLOUDY CHRISTOPHE COLORED URINE OUTPUT. PICC LINE NOTED WITH POSITIVE BLOOD RETURN WITH ON GOING INFUSION OF NS @ 125CC/HR, GT FEEDING HELD PER PM NURSE REPORT NOTED BLEEDING ON STOMA SITE, RE-ASSESSED NOTED FIRM/HARD TO THE TOUCH. WILL FOLLOW-UP WITH PRIMARY. PT IS COMFORTABLE, SCHEDULED AM MEDS TO BE GIVEN. CL WITHIN REACHED AND SAFETY MAINTAINED. ON GOING MONITORING. Addendum: 08/25/19 at 0145 by KAMILLE AQUINO RN WRONG ENTRY
[2019-08-25 04:00] VITALS: BP 114/65
[2019-08-25] MEDS: MEROPENEM 500 MG in IV NS 0.9% 50 ML IV SCH ×2 (04:42→15:22)
[2019-08-25] MEDS: IV NS 0.9% 1,000 ML IV PRN ×2 (04:58→17:37)
[2019-08-25] MEDS: VALPROIC ACID 250 MG/5 ML UDC GT SCH ×3 (04:58→21:00)
--- NOTE | 2019-08-25 06:57 | NUR ---
RN NOTES, NO SIGNIFICANT CHANGE IN CONDITION DURING THE NIGHT, SLIGHT BLEEDING FROM GT SITE, WILL ENDORSE CONTINUITY OF CARE TO ONCOMING NURSE.
[2019-08-25 07:11] LABS: BASOPHILS % (AUTO) 0.2 % (0.0-2.0); EOSINOPHILS % (AUTO) 0.6 % (0.0-6.0); HEMATOCRIT 25 % (39-51); HEMOGLOBIN 8.3 g/dL (13.5-17.5); LYMPHOCYTES # (AUTO) 1.3 /CMM (0.8-4.8); LYMPHOCYTES % (AUTO) 12.8 % (20.0-44.0); MEAN CORPUSCULAR HGB CONC 33 g/dl (31.0-36.0); MEAN CORPUSCULAR VOLUME 93 fL (80-96); MONOCYTES # (AUTO) 2.1 /CMM (0.1-1.30); MONOCYTES % (AUTO) 21.6 % (2.0-12.0); NEUTROPHILS # (AUTO) 6.4 /CMM (1.8-8.9); NEUTROPHILS % (AUTO) 64.8 % (43.0-81.0); PLATELET COUNT (AUTO) 292 /CMM (150-450); RED BLOOD CELL COUNT(AUTO) 2.71 MIL/uL (4.5-6.0); WHITE BLOOD COUNT (AUTO) 9.9 K/uL (4.3-11.0)
[2019-08-25 07:20] LABS: CALCIUM, SERUM 9.4 mg/dL (8.5-10.1); CREATININE 2.6 mg/dL (0.6-1.3); MAGNESIUM 2.2 mg/dL (1.8-2.4); POTASSIUM 4.4 mmol/L (3.5-5.1)
[2019-08-25 08:00] VITALS: BP 118/74
[2019-08-25] MEDS: ZINC SULFATE 220 MG CAPSULE GT SCH ×2 (09:00→09:43)
[2019-08-25] MEDS: ASCORBIC ACID 500 MG TABLET GT SCH ×2 (09:00→09:43)
[2019-08-25] MEDS: ACIDOPHILUS/BULGARICUS 1 EACH TAB.CHEW GT SCH ×4 (09:00→16:20)
[2019-08-25] MEDS: PANTOPRAZOLE 40 MG/PACK PACK GT SCH ×3 (09:00→21:00)
[2019-08-25] MEDS: BICALUTAMIDE 50 MG TABLET GT SCH ×2 (09:00→09:44)
[2019-08-25] MEDS: METOPROLOL TARTRATE 50 MG TABLET PO SCH ×3 (09:00→21:00)
[2019-08-25] MEDS: HEPARIN SODIUM, PORCINE 5000 UNITS/1 ML VIAL SQ SCH ×2 (09:00→21:00)
[2019-08-25] MEDS: CALCIUM CARB 250MG /VITAMIN D 1 UDTAB GT SCH ×2 (09:00→09:51)
[2019-08-25] MEDS: PROSOURCE / PROSTAT (PYXIS) 30 ML UDC GT SCH ×2 (09:00→09:49)
--- NOTE | 2019-08-25 09:30 | NUR ---
TELE/RN NOTES MORNING MEDICATIONS WAS HELD DUE TO SLIGHT BLEEDING RESIDUAL. AWAITING FOR THE RESULTS OF THE CT ABDOMEN TO GIVE REPORT TO DR. ROSALES.
[2019-08-25] MEDS: CHLORHEXIDINE GLUCONATE 15 ML UDC MM SCH ×2 (09:41→16:22)
[2019-08-25] MEDS: HYDROGEL DRESSING 90 GM TUBE TP SCH (09:47)
[2019-08-25] MEDS: VANCOMYCIN 0.75 GM in IV D5W 250 ML IV SCH (10:28)
[2019-08-25 12:00] VITALS: BP 131/70
--- NOTE | 2019-08-25 13:37 | NUR ---
TELE/RN NOTES NOON MEDICATION WAS HELD DUE TO BLOOD ON THE RESIDUAL, MD AWARE. PATIENT CONTINUES TO REMAIN IN STABLE CONDITION. WILL CONTINUE PLAN OF CARE.
[2019-08-25 16:00] VITALS: BP_SYST 117; BP_SYST 118; BP_DIAS 64
--- NOTE | 2019-08-25 19:01 | NUR ---
TELE/RN CLOSING NOTES PATIENT CONTINUES TO REMAIN IN STABLE CONDITION THROUGHOUT THE SHIFT. PROVIDED COMFORT AND SAFETY. GT FEEDING AND MEDICATIONS WAS HELD DUE TO LEAKING AND BLOOD WHILE CHECKING RESIDUAL. DR. ROSALES AND DR. GÓMEZ WAS MADE AWARE FOR GI CONSULT. PATIENT CONTINUES ON IVF. ABLE TO TOLERATE WELL. NO S/S OF INFECTION ON THE IV ACCESS. NEPHROSTOMY SITE INTACT AND PATENT WELL. DRAINING YELLOW CLEAR URINE. HOB ELEVATED AT ALL TIMES. ALL NEEDS ANTICIPATED. CALL LIGHT WITHIN REACHED. BED LOCKED AND IN LOWEST POSITION. WILL CONTINUE TO MONITOR. ENDORSED TO PM NURSE FOR LIZETH.
--- NOTE | 2019-08-25 19:20 | NUR ---
RN NOTES, RECEIVED PATIENT ASLEEP IN BED, PT OBTUNDED, NO GRIMACING OR ACUTE CHANGE OF CONDITION NOTED, ON VENTILATOR WITH RATES SET PRESCRIBED, SATURATING @ 100%, BREATHING EVEN AND UNLABORED, NO SOB/ACUTE DISTRESS NOTED, ON TELE WITH SINUS TACHY 110 AT THIS TIME, PARK CATHETER AND NEPHROSTOMY TUBE INTACT WITH CLOUDY CHRISTOPHE COLORED URINE, RIGHT PICC LINE IN PLACED, PATENT AND INTACT, IVF NS @ 125CC/HR INFUSING WELL AND PATIENT TOLERATED WELL, GT FEEDING ON HOLD, PER PM NURSE REPORT NOTED BLEEDING ON STOMA SITE, NO ACTIVE BLEEDING NOTED AT THIS TIME, CL WITHIN REACHED AND SAFETY MAINTAINED,HOB ELEVATED AT ALL TIMES, SUCTIONED AT THIS TIME FOR REMOVAL OF SECRETIONS, WILL CONTINUE TO MONITOR CLOSELY,
[2019-08-25 20:00] VITALS: BP 115/75
--- NOTE | 2019-08-25 20:03 | NUR ---
RT Pt received trached on mechanical ventilation via trach. Portex 8 secured via trach tie. Pt is awake but does not follow commands. Vent is plugged into red outlet. Secretions are small, white, thick. No SOB or respiratory distress noted. HOB at 30 degrees. Ambu bag at head of bed. Addendum: 08/25/19 at 2006 by VERNA MARQUEZ RT Amended: Links added.
[2019-08-25] MEDS: TAMSULOSIN 0.4 MG CAP.SR.24H GT SCH (21:14)
[2019-08-25] MEDS: INSULIN GLARGINE, 100 UNIT/ML CARTRIDGE SQ SCH (21:32)
--- NOTE | 2019-08-25 21:33 | NUR ---
RN NOTES, GT MEDS NOS ADMINISTERED GT CLAMPED AND MEDICATIONS/FEEDING ON HOLD, LANTUS NOT ADMINISTERED WELL, BS 103 MG/dL AT THIS TIME, HEPARIN NOT ADMINISTERED FOR INCREASED RISK IN BLEEDING AT GT SITE.
[2019-08-26] VITALS: BP 115/70
[2019-08-26] MEDS: IV NS 0.9% 1,000 ML IV PRN ×3 (01:50→20:53)
[2019-08-26 04:00] VITALS: BP 124/77
[2019-08-26] MEDS: MEROPENEM 500 MG in IV NS 0.9% 50 ML IV SCH ×2 (04:30→15:15)
[2019-08-26] MEDS: VALPROIC ACID 250 MG/5 ML UDC GT SCH ×3 (05:00→21:28)
--- NOTE | 2019-08-26 06:35 | NUR ---
RN NOTES, NO SIGNIFICANT CHANGE IN CONDITION DURING THE NIGHT, SLIGHT BLEEDING FROM GT SITE, CONTINUE WITH GT CLAMPED AND MEDICATIONS ON HOLD, DR AHN TO G/U, FOR PATIEN BLEEDING FROM GT SITE, AND COFFEE GROUND RESIDUAL, WILL ENDORSE CONTINUITY OF CARE TO ONCOMING NURSE.
[2019-08-26 06:45] LABS: BASOPHILS % (AUTO) 0.2 % (0.0-2.0); EOSINOPHILS % (AUTO) 0.8 % (0.0-6.0); HEMATOCRIT 26 % (39-51); HEMOGLOBIN 8.2 g/dL (13.5-17.5); LYMPHOCYTES # (AUTO) 1.1 /CMM (0.8-4.8); LYMPHOCYTES % (AUTO) 12.9 % (20.0-44.0); MEAN CORPUSCULAR HGB CONC 32 g/dl (31.0-36.0); MEAN CORPUSCULAR VOLUME 94 fL (80-96); MONOCYTES # (AUTO) 2.1 /CMM (0.1-1.30); MONOCYTES % (AUTO) 25.3 % (2.0-12.0); NEUTROPHILS # (AUTO) 5.1 /CMM (1.8-8.9); NEUTROPHILS % (AUTO) 60.8 % (43.0-81.0); PLATELET COUNT (AUTO) 342 /CMM (150-450); RED BLOOD CELL COUNT(AUTO) 2.71 MIL/uL (4.5-6.0); WHITE BLOOD COUNT (AUTO) 8.5 K/uL (4.3-11.0)
[2019-08-26 06:54] LABS: CALCIUM, SERUM 9.1 mg/dL (8.5-10.1); CREATININE 1.9 mg/dL (0.6-1.3); POTASSIUM 3.9 mmol/L (3.5-5.1)
--- NOTE | 2019-08-26 07:49 | NUR ---
RN OPENING NOTES REPORT RECEIVED FROM BARROW WORKER HELPER RN. PT IS IN BED WITH HOB ELEVATED TO 40 DEGREES. G-TUBE FEEDING BEING HELD FOR NOW DUE TO COFFEE GROUND RESIDUAL. PT HEART RATE 114 ST ON TELE MONITOR. PT IS ON A SPECIALTY MATTRESS. BED IS LOCKED AND IN LOWEST POSITION WILL CONTINUE TO MONITOR.
[2019-08-26 08:00] VITALS: BP 114/70
[2019-08-26 08:42] LABS: EOSINOPHILS % (MANUAL) 4 % (0-4); LYMPHOCYTES % (MANUAL) 12 % (16-48); MONOCYTES % (MANUAL) 23 % (0-11.0); NEUTROPHILS % (MANUAL) 61 (42-76)
[2019-08-26] MEDS: HEPARIN SODIUM, PORCINE 5000 UNITS/1 ML VIAL SQ SCH ×2 (09:00→21:00)
[2019-08-26] MEDS: CHLORHEXIDINE GLUCONATE 15 ML UDC MM SCH ×2 (09:42→16:40)
[2019-08-26] MEDS: BICALUTAMIDE 50 MG TABLET GT SCH (09:42)
[2019-08-26] MEDS: ACIDOPHILUS/BULGARICUS 1 EACH TAB.CHEW GT SCH ×3 (09:43→16:40)
[2019-08-26] MEDS: PANTOPRAZOLE 40 MG/PACK PACK GT SCH ×2 (09:43→21:28)
[2019-08-26] MEDS: ASCORBIC ACID 500 MG TABLET GT SCH (09:43)
[2019-08-26] MEDS: ZINC SULFATE 220 MG CAPSULE GT SCH (09:43)
[2019-08-26] MEDS: PROSOURCE / PROSTAT (PYXIS) 30 ML UDC GT SCH (09:44)
[2019-08-26] MEDS: METOPROLOL TARTRATE 50 MG TABLET PO SCH ×2 (09:44→21:27)
[2019-08-26] MEDS: CALCIUM CARB 250MG /VITAMIN D 1 UDTAB GT SCH (09:46)
--- NOTE | 2019-08-26 10:00 | NUR ---
PER DR. DALIA BRIDGES TO RESUME G-TUBE FEEDING.
[2019-08-26] MEDS: HYDROGEL DRESSING 90 GM TUBE TP SCH (10:08)
[2019-08-26 12:00] VITALS: BP_SYST 11; BP_SYST 111; BP_DIAS 73
[2019-08-26] MEDS: GLUCERNA 1.2 1,000 ML BOTTLE NG PRN (12:37)
[2019-08-26] MEDS: VANCOMYCIN 500 MG in IV D5W 100 ML IV SCH (14:09)
[2019-08-26 16:00] VITALS: BP 120/76
[2019-08-26] MEDS: EPOETIN ALFA (4000 UNIT) 4,000 UNIT/ML VIAL SQ SCH (16:13)
--- NOTE | 2019-08-26 19:30 | NUR ---
RN NOTES, RECEIVED PATIENT ASLEEP IN BED, OBTUNDED, ON VENTILATOR SATURATING @ 100% TOLERATING SETTINGS WELL, NO SOB/ACUTE DISTRESS NOTED, NO FACIAL GRIMACING OR DISCOMFORT NOTED, ON TELE WITH NSR 90S AT THIS TIME, PARK CATHETER AND NEPHROSTOMY TUBE INTACT WITH CLOUDY CHRISTOPHE COLORED URINE, RIGHT THIGH PICC LINE IN PLACED, PATENT AND INTACT, IVF NS @ 125CC/HR INFUSING WELL AND PATIENT TOLERATED WELL, ON GLUCERNA AT THIS TIME, RESUME BY DR AHN, MINIMAL RESIDUAL NOTED AT THIS TIME, WILL INCREASED TOLERATE, CALL LIGHT W/I REACH, SAFETY MAINTAINED, HOB ELEVATED AT ALL TIMES, WILL CONTINUE TO MONITOR CLOSELY.
--- NOTE | 2019-08-26 19:33 | NUR ---
RN CLOSING NOTES REPORT GIVEN TO DRAPERY SEAMSTRESS RN FOR LIZETH. NO SIGNIFICANT CHANGES DURING SHIFT.
[2019-08-26 20:00] VITALS: BP 134/76
--- NOTE | 2019-08-26 20:20 | NUR ---
RT PT RECEIVED ON CURRENT VENT SETTINGS. PT HAS TRACH, PORTEX 8. MODERATE SECRETIONS SUCTIONED. NO APPARENT RESPIRATORY DISTRESS. HOB AT 30 DEGREES. AMBU BAG AT BED SIDE. VENT PLUGGED IN TO RED OUTLET. WILL CONTINUE TO MONITOR. Addendum: 08/26/19 at 2023 by MELO COX RT Amended: Links added.
[2019-08-26] MEDS: TAMSULOSIN 0.4 MG CAP.SR.24H GT SCH (21:28)
[2019-08-26] MEDS: INSULIN GLARGINE, 100 UNIT/ML CARTRIDGE SQ SCH (22:14)
[2019-08-27] VITALS: BP 130/76
[2019-08-27 04:00] VITALS: BP 124/81
[2019-08-27] MEDS: VALPROIC ACID 250 MG/5 ML UDC GT SCH ×3 (04:09→21:53)
[2019-08-27] MEDS: MEROPENEM 500 MG in IV NS 0.9% 50 ML IV SCH ×2 (04:09→15:40)
[2019-08-27] MEDS: IV NS 0.9% 1,000 ML IV PRN ×2 (06:14→18:30)
[2019-08-27 06:28] LABS: BASOPHILS % (AUTO) 0.3 % (0.0-2.0); EOSINOPHILS % (AUTO) 0.8 % (0.0-6.0); HEMATOCRIT 26 % (39-51); HEMOGLOBIN 8.3 g/dL (13.5-17.5); LYMPHOCYTES # (AUTO) 3.2 /CMM (0.8-4.8); LYMPHOCYTES % (AUTO) 25.7 % (20.0-44.0); MEAN CORPUSCULAR HGB CONC 32 g/dl (31.0-36.0); MEAN CORPUSCULAR VOLUME 95 fL (80-96); MONOCYTES # (AUTO) 2.8 /CMM (0.1-1.30); MONOCYTES % (AUTO) 22.7 % (2.0-12.0); NEUTROPHILS # (AUTO) 6.2 /CMM (1.8-8.9); NEUTROPHILS % (AUTO) 50.5 % (43.0-81.0); PLATELET COUNT (AUTO) 453 /CMM (150-450); RED BLOOD CELL COUNT(AUTO) 2.76 MIL/uL (4.5-6.0); WHITE BLOOD COUNT (AUTO) 12.3 K/uL (4.3-11.0)
[2019-08-27 06:41] LABS: CALCIUM, SERUM 8.8 mg/dL (8.5-10.1); CREATININE 1.6 mg/dL (0.6-1.3); MAGNESIUM 1.7 mg/dL (1.8-2.4); PHOSPHORUS 2.8 mg/dL (2.5-4.9); POTASSIUM 3.9 mmol/L (3.5-5.1)
--- NOTE | 2019-08-27 06:44 | NUR ---
RN NOTES, NO SIGNIFICANT CHANGE IN CONDITION DURING THE NIGHT, NO ACTIVE BLEEDING NOTED, AWILL ENDORSE CONTINUITY OF CARE TO ONCOMING NURSE.
[2019-08-27 07:15] LABS: BAND % (MANUAL) 1 % (0.0-5.0); EOSINOPHILS % (MANUAL) 1 % (0-4); LYMPHOCYTES % (MANUAL) 23 % (16-48); MONOCYTES % (MANUAL) 21 % (0-11.0); NEUTROPHILS % (MANUAL) 54 (42-76)
--- NOTE | 2019-08-27 07:25 | NUR ---
TELE/RN OPENING NOTES RECEIVED PATIENT IN BED RESTING COMFORTABLY. NO PAIN OR ACUTE DISTRESS AT THIS TIME. RESPIRATION EVEN AND UNLABORED. SKIN IS DRY WARM TO TOUCH. CONTINUES ON TELE WITH NSR 80S AT THIS TIME. PARK CATHETER AND NEPHROSTOMY TUBE INTACT WITH CLEAR YELLOW URINE. PATIENT ALSO NOTED WITH RIGHT THIGH PICC LINE IN PLACED, PATENT AND INTACT, IVF NS @ 125CC/HR INFUSING WELL AND PATIENT TOLERATED WELL. HOB ELEVATED AT ALL TIMES. ALL NEEDS ANTICIPATED. CALL LIGHT WITHIN REACHED. BED LOCKED AND IN LOWEST POSITION. WILL CONTINUE TO MONITOR CLOSELY.
[2019-08-27 08:00] VITALS: BP 126/73
[2019-08-27] MEDS: CHLORHEXIDINE GLUCONATE 15 ML UDC MM SCH ×2 (08:39→16:49)
[2019-08-27] MEDS: ACIDOPHILUS/BULGARICUS 1 EACH TAB.CHEW GT SCH ×3 (08:39→16:49)
[2019-08-27] MEDS: PANTOPRAZOLE 40 MG/PACK PACK GT SCH ×2 (08:39→21:52)
[2019-08-27] MEDS: ASCORBIC ACID 500 MG TABLET GT SCH (08:39)
[2019-08-27] MEDS: ZINC SULFATE 220 MG CAPSULE GT SCH (08:39)
[2019-08-27] MEDS: METOPROLOL TARTRATE 50 MG TABLET PO SCH ×2 (08:42→21:52)
[2019-08-27] MEDS: PROSOURCE / PROSTAT (PYXIS) 30 ML UDC GT SCH (08:42)
[2019-08-27] MEDS: CALCIUM CARB 250MG /VITAMIN D 1 UDTAB GT SCH (08:42)
[2019-08-27] MEDS: BICALUTAMIDE 50 MG TABLET GT SCH (08:42)
[2019-08-27] MEDS: HYDROGEL DRESSING 90 GM TUBE TP SCH (08:43)
[2019-08-27] MEDS: HEPARIN SODIUM, PORCINE 5000 UNITS/1 ML VIAL SQ SCH ×2 (08:43→21:59)
[2019-08-27] MEDS: Magnesium 1GM/D5W 100ML PREMIX 100 ML IV SCH ×2 (09:45→11:03)
[2019-08-27 12:00] VITALS: BP_SYST 122; BP_SYST 131; BP_DIAS 64; BP_DIAS 76
[2019-08-27] MEDS: VANCOMYCIN 500 MG in IV D5W 100 ML IV SCH (14:01)
[2019-08-27 16:00] VITALS: BP_SYST 122; BP_SYST 126; BP_DIAS 71; BP_DIAS 73
[2019-08-27] MEDS: SILVER SULFADIAZINE CREAM 25 GM TUBE TP SCH (16:44)
--- NOTE | 2019-08-27 18:41 | NUR ---
TELE/RN CLOSING NOTES PATIENT CONTINUES TO REMAIN IN STABLE CONDITION THROUGHOUT THE SHIFT. PROVIDED COMFORT AND SAFETY. NO PAIN OR ACUTE DISTRESS AT THIS TIME. RESPIRATION EVEN AND UNLABORED. CONTINUES ON TELE MONITORING. PARK CATHETER AND NEPHROSTOMY TUBE INTACT WITH CLEAR YELLOW URINE. PATIENT ALSO NOTED WITH RIGHT THIGH PICC LINE IN PLACED, PATENT AND INTACT, IVF NS @ 125CC/HR INFUSING WELL AND PATIENT TOLERATED WELL. HOB ELEVATED AT ALL TIMES. ALL NEEDS ANTICIPATED. CALL LIGHT WITHIN REACHED. BED LOCKED AND IN LOWEST POSITION. WILL CONTINUE TO MONITOR CLOSELY. ENDORSED TO PM NURSE FOR LIZETH.
--- NOTE | 2019-08-27 19:25 | NUR ---
TELE/RN NOTES Patient received in bed, awake, open eyes, non verbal. No S/S of acute distress noted, breathing even and unlabored on prescribed vent settings, No SOB noted. No S/S of pain at this time, no facial grimacing noted, F/C and nephrostomy tube, patent, draining well with yellow color urine, G-tube in place, patent connected to feeding as ordered, On tele monitoring with sinus rhythm, PICC line patent running with fluids as ordered. Safety maintained, bed at the lowest locked position, Call light within reach. Will continue to monitor resident as per plan of care.
[2019-08-27 20:00] VITALS: BP_SYST 139; BP_DIAS 72; BP_DIAS 74
--- NOTE | 2019-08-27 20:21 | NUR ---
RT NOTE PT RECEIVED TRACHED ON MECHANICAL VENTILATION. PORTEX [address] AMBU BAG/BACK UP TRACH @ BEDSIDE. TX GIVEN, NO ADVERSE REACTIONS NOTED. SX DONE, TRACH SECURED AND PATENT. ALARMS ON AND AUDIBLE. NO SOB NOTED. Addendum: 08/27/19 at 2023 by AIDEE THOMPSON RT Amended: Links added.
[2019-08-27] MEDS: INSULIN GLARGINE, 100 UNIT/ML CARTRIDGE SQ SCH (21:38)
--- NOTE | 2019-08-27 21:40 | NUR ---
Called Daughter Sabrina Chery, left message, waiting for call back for consent
[2019-08-27] MEDS: TAMSULOSIN 0.4 MG CAP.SR.24H GT SCH (21:52)
--- NOTE | 2019-08-27 22:00 | NUR ---
Called Josselyn Camarillo unable to leave message due to Voice mail being full.
[2019-08-28] VITALS: BP_SYST 139; BP_DIAS 80; BP_DIAS 87
[2019-08-28] MEDS: IV NS 0.9% 1,000 ML IV PRN (02:22)
[2019-08-28 04:00] VITALS: BP 137/75
[2019-08-28] MEDS: MEROPENEM 500 MG in IV NS 0.9% 50 ML IV SCH ×2 (04:14→16:13)
[2019-08-28] MEDS: VALPROIC ACID 250 MG/5 ML UDC GT SCH ×3 (04:14→21:13)
[2019-08-28] MEDS: GLUCERNA 1.2 1,000 ML BOTTLE NG PRN (05:41)
[2019-08-28 06:39] LABS: CALCIUM, SERUM 7.8 mg/dL (8.5-10.1); CREATININE 1.3 mg/dL (0.6-1.3); POTASSIUM 3.4 mmol/L (3.5-5.1)
--- NOTE | 2019-08-28 06:43 | NUR ---
TELE/RN NOTES Patient remained in bed, awake, open eyes, non verbal. No S/S of acute distress noted, breathing even and unlabored on prescribed vent settings, No SOB noted. No S/S of pain at this time, no facial grimacing noted, F/C and nephrostomy tube, patent, draining well with yellow color urine with output 950 from nephrostomy tube and 250 from F/C. G-tube in place, patent connected to feeding at 40cc/HR. On tele monitoring with sinus rhythm, PICC line patent running with fluids as ordered. Safety maintained, bed at the lowest locked position, Call light within reach. Will endorse to AM Shift nurse for LIZETH.
[2019-08-28 08:00] VITALS: BP 106/61
[2019-08-28] MEDS: CHLORHEXIDINE GLUCONATE 15 ML UDC MM SCH ×2 (08:30→16:13)
[2019-08-28] MEDS: ZINC SULFATE 220 MG CAPSULE GT SCH (08:30)
[2019-08-28] MEDS: ASCORBIC ACID 500 MG TABLET GT SCH (08:30)
[2019-08-28] MEDS: PROSOURCE / PROSTAT (PYXIS) 30 ML UDC GT SCH (08:31)
[2019-08-28] MEDS: ACIDOPHILUS/BULGARICUS 1 EACH TAB.CHEW GT SCH ×3 (08:31→16:13)
[2019-08-28] MEDS: PANTOPRAZOLE 40 MG/PACK PACK GT SCH ×2 (08:31→21:13)
[2019-08-28] MEDS: HYDROGEL DRESSING 90 GM TUBE TP SCH (08:31)
[2019-08-28] MEDS: SILVER SULFADIAZINE CREAM 25 GM TUBE TP SCH (08:32)
[2019-08-28] MEDS: CALCIUM CARB 250MG /VITAMIN D 1 UDTAB GT SCH (08:33)
[2019-08-28] MEDS: HEPARIN SODIUM, PORCINE 5000 UNITS/1 ML VIAL SQ SCH ×2 (08:34→21:17)
[2019-08-28] MEDS: METOPROLOL TARTRATE 50 MG TABLET PO SCH ×2 (08:34→21:00)
[2019-08-28] MEDS: BICALUTAMIDE 50 MG TABLET GT SCH (08:35)
--- NOTE | 2019-08-28 10:12 | NUR ---
TELE/RN NOTES MEDICATION METOPROLOL WAS NOT GIVEN DUE TO LOW BP OF 106/61. PATIENT CONTINUES TO REMAIN IN STABLE CONDITION. WILL CONTINUE TO MONITOR CLOSELY.
[2019-08-28] MEDS ORDERED: POTASSIUM CHLORIDE 20 MEQ POWDER PACKET NG SCH (10:30)
[2019-08-28 12:00] VITALS: BP 111/63
--- NOTE | 2019-08-28 13:24 | NUR ---
NOTED AIR LEAK FROM STOMA AND MOUTH. PER DR AGEE TRACH WAS CHANGED TO A NEW PORTEX 8. PATIENT CONTINUES TO HAVE NOTED AIR LEAK. PATIENT NOT IN DISTRESS AT THIS TIME BUT MAY REQUIRE LARGER OR LONGER TRACH. Addendum: 08/28/19 at 1327 by ARIAS SALMON RT Amended: Links added.
[2019-08-28 14:26] LABS: HEMOGLOBIN 7.7 g/dL (13.5-17.5)
[2019-08-28 16:00] VITALS: BP 122/65
[2019-08-28] MEDS: EPOETIN ALFA (4000 UNIT) 4,000 UNIT/ML VIAL SQ SCH (16:10)
--- NOTE | 2019-08-28 18:28 | NUR ---
TELE/RN CLOSING NOTES PATIENT CONTINUES TO REMAIN IN STABLE CONDITION THROUGHOUT THE SHIFT. PROVIDED COMFORT AND SAFETY. NO PAIN OR ACUTE DISTRESS AT THIS TIME. RESPIRATION EVEN AND UNLABORED. CONTINUES ON TELE MONITORING. PARK CATHETER AND NEPHROSTOMY TUBE INTACT WITH CLEAR YELLOW URINE. PATIENT ALSO NOTED WITH RIGHT THIGH PICC LINE IN PLACED, PATENT AND INTACT. HOB ELEVATED AT ALL TIMES. ALL NEEDS ANTICIPATED. CALL LIGHT WITHIN REACHED. BED LOCKED AND IN LOWEST POSITION. WILL CONTINUE TO MONITOR CLOSELY. ENDORSED TO PM NURSE FOR LIZETH.
--- NOTE | 2019-08-28 19:35 | NUR ---
PT RECEIVED TRACHED PORTEX 8 ON MECHANICAL VENTILATION WITH NOTED SETTINGS. AMBU BAG/BACK UP TRACH @ BEDSIDE. SX DONE, TRACH SECURED AND PATENT. ALARMS ON AND AUDIBLE. NO SOB NOTED. WILL CONTINUE TO MONITOR T/O SHIFT
[2019-08-28 20:00] VITALS: BP 101/56
[2019-08-28] MEDS: TAMSULOSIN 0.4 MG CAP.SR.24H GT SCH (21:13)
[2019-08-28] MEDS: INSULIN GLARGINE, 100 UNIT/ML CARTRIDGE SQ SCH (21:16)
--- NOTE | 2019-08-28 21:17 | NUR ---
Lopressor held due to low BP 100/56, HR 64
[2019-08-29] VITALS (7 sets, daily range): BP systolic 91–126; BP diastolic 53–75
[2019-08-29] MEDS: MEROPENEM 500 MG in IV NS 0.9% 50 ML IV SCH ×2 (03:57→17:44)
[2019-08-29] MEDS: VALPROIC ACID 250 MG/5 ML UDC GT SCH ×3 (03:58→21:33)
[2019-08-29 06:51] LABS: BASOPHILS % (AUTO) 0.3 % (0.0-2.0); EOSINOPHILS % (AUTO) 0.9 % (0.0-6.0); HEMATOCRIT 24 % (39-51); HEMOGLOBIN 7.8 g/dL (13.5-17.5); LYMPHOCYTES # (AUTO) 3.2 /CMM (0.8-4.8); LYMPHOCYTES % (AUTO) 22.7 % (20.0-44.0); MEAN CORPUSCULAR HGB CONC 32 g/dl (31.0-36.0); MEAN CORPUSCULAR VOLUME 97 fL (80-96); MONOCYTES # (AUTO) 2.1 /CMM (0.1-1.30); MONOCYTES % (AUTO) 14.6 % (2.0-12.0); NEUTROPHILS # (AUTO) 8.6 /CMM (1.8-8.9); NEUTROPHILS % (AUTO) 61.5 % (43.0-81.0); PLATELET COUNT (AUTO) 548 /CMM (150-450); RED BLOOD CELL COUNT(AUTO) 2.51 MIL/uL (4.5-6.0)
--- NOTE | 2019-08-29 06:53 | NUR ---
TELE/RN NOTES Patient remained in bed, awake, open eyes, non verbal. No S/S of acute distress noted, breathing even and unlabored on prescribed vent settings, No SOB noted. No S/S of pain at this time, no facial grimacing noted, F/C and nephrostomy tube, patent, draining well with yellow color urine with output 750 from nephrostomy tube and 350 from F/C. G-tube in place, patent connected to feeding at 40cc/HR. On tele monitoring with sinus tachy, PICC line patent, flushed. All due meds given as ordered, treatments rendered, tolerated well. kept clean and dry, needs attendant, Safety maintained, bed at the lowest locked position, Call light within reach. Will endorse to AM Shift nurse for LIZETH.
--- NOTE | 2019-08-29 07:15 | NUR ---
SURVEILLANCE SPECIALIST OPENING NOTE: PATIENT RECEIVED IN BED, OBTUNDED AND OPENS EYES. CONTACT ISOLATION IN PLACE, STAFF AWARE AND COMPLIANCE OBSERVED. NO PAIN OR ACUTE DISTRESS NOTED RESPIRATION EVEN AND UNLABORED WITH MECHANICAL VENTILATION WITH PORTEX 8, SETTINGS OF AC12, TV 500, FI02: 40% AND TOLERATING WELL. ON TELE MONITORING WITH SINUS TACHYCARDIA AT 109BPM NOTED. PARK CATHETER AND NEPHROSTOMY TUBE INTACT WITH CLEAR YELLOW URINE. PATIENT ALSO NOTED WITH RIGHT THIGH PICC LINE IN PLACE, PATENT AND INTACT. HOB ELEVATED AT ALL TIMES. CALL LIGHT IN REACH. BED LOCKED, LOW AND AT SEMI-MORRIS'S POSITION. WILL CONTINUE TO MONITOR CLOSELY.
[2019-08-29 07:34] LABS: CALCIUM, SERUM 8.3 mg/dL (8.5-10.1); CREATININE 1.5 mg/dL (0.6-1.3); MAGNESIUM 1.8 mg/dL (1.8-2.4); PHOSPHORUS 3.5 mg/dL (2.5-4.9); POTASSIUM 4.2 mmol/L (3.5-5.1)
--- NOTE | 2019-08-29 08:29 | NUR ---
RT NOTE PT RECEIVED ON [facility] VENT WITH NO RESP DISTRESS OR SOB NOTED. PT SX'D: LARGE THICK YELLOW SECRETIONS. VENT IS PLUGGED INTO RED OUTLET AND ALARMS ARE ON AND AUDIBLE. AMBU BAG AND SPARE TRACH ARE AT BEDSIDE. PT'S TRACH IS PATENT AND SECURE. WILL CONT TO MONITOR PT THROUGH OUT SHIFT. RN IS AWARE OF LARGE AMOUNT OF SECRETIONS. Addendum: 08/29/19 at 0830 by BEHZAD BATISTA RT Amended: Links added.
[2019-08-29] MEDS: CALCIUM CARB 250MG /VITAMIN D 1 UDTAB GT SCH (08:54)
[2019-08-29] MEDS: PANTOPRAZOLE 40 MG/PACK PACK GT SCH ×2 (08:54→21:33)
[2019-08-29] MEDS: CHLORHEXIDINE GLUCONATE 15 ML UDC MM SCH ×2 (08:54→17:56)
[2019-08-29] MEDS: METOPROLOL TARTRATE 50 MG TABLET PO SCH ×2 (08:54→21:34)
[2019-08-29] MEDS: PROSOURCE / PROSTAT (PYXIS) 30 ML UDC GT SCH (08:54)
[2019-08-29] MEDS: ACIDOPHILUS/BULGARICUS 1 EACH TAB.CHEW GT SCH ×3 (08:54→17:56)
[2019-08-29] MEDS: BICALUTAMIDE 50 MG TABLET GT SCH (08:54)
[2019-08-29] MEDS: ASCORBIC ACID 500 MG TABLET GT SCH (08:54)
[2019-08-29] MEDS: ZINC SULFATE 220 MG CAPSULE GT SCH (08:55)
[2019-08-29] MEDS: HYDROGEL DRESSING 90 GM TUBE TP SCH (08:56)
[2019-08-29] MEDS: SILVER SULFADIAZINE CREAM 25 GM TUBE TP SCH (08:56)
--- NOTE | 2019-08-29 10:00 | NUR ---
AIR LAUNCH WEAPONS TECHNICIAN NOTE: UPDATED DR. ROSALES OF PATIENT'S S/P BLOOD TRANSFUSION. OK TO GIVE SCHEDULED HEPARIN DOSE IN AM.
[2019-08-29] MEDS: HEPARIN SODIUM, PORCINE 5000 UNITS/1 ML VIAL SQ SCH ×2 (10:03→21:38)
[2019-08-29] MEDS: IV 1/2NS 1000 ML 1,000 ML IV SCH (11:27)
--- NOTE | 2019-08-29 17:30 | NUR ---
MS NICOLE NOTE: CALLED LAB TO INFORM OF URINE SPECIMEN FROM NEPHROSTOMY TUBE IS READY. Addendum: 08/29/19 at 1900 by OK FERGUSON RN HERMINIA NICOLE NOTE:
--- NOTE | 2019-08-29 19:00 | NUR ---
CLERICAL AIDE TEACHER CLOSING NOTE: PATIENT IN BED, OBTUNDED AND OPENS EYES. CONTACT ISOLATION IN PLACE, STAFF AWARE AND COMPLIANCE OBSERVED. NO PAIN OR ACUTE DISTRESS NOTED RESPIRATION EVEN AND UNLABORED WITH MECHANICAL VENTILATION WITH PORTEX 8, SETTINGS OF AC12, TV 500, FI02: 40% AND TOLERATING WELL. NO SOB, NO DISTRESS NOTED. EXCESSIVE SECRETIONS ON TRACH TUBE, MOUTH AND NOSE NOTED AND MD IS AWARE. GT IS PATENT AND IN PLACE. ON TELE MONITORING. PARK CATHETER AND NEPHROSTOMY TUBE INTACT WITH CLEAR YELLOW URINE. PATIENT ALSO NOTED WITH RIGHT THIGH PICC LINE IN PLACE, PATENT AND INTACT WITH 1/2NS @ 75CC/HR. HOB ELEVATED AT ALL TIMES. CALL LIGHT IN REACH. BED LOCKED, LOW AND AT SEMI-MORRIS'S POSITION. WILL ENDORSE TO ONCOMING SHIFT FOR LIZETH
--- NOTE | 2019-08-29 19:25 | NUR ---
TELE/RN NOTES Patient received in bed, awake, open eyes, non verbal. No S/S of acute distress noted, breathing even and unlabored on prescribed vent settings, No SOB noted. No S/S of pain at this time, no facial grimacing noted, F/C and nephrostomy tube, patent, draining with orange color urine, G-tube in place, patent connected to feeding as ordered, On tele monitoring with sinus rhythm, HOB elevated, PICC line patent running with fluids as ordered. Safety maintained, bed at the lowest locked position, Call light within reach. Will continue to monitor resident as per plan of care.
[2019-08-29] MEDS: INSULIN GLARGINE, 100 UNIT/ML CARTRIDGE SQ SCH (21:13)
--- NOTE | 2019-08-29 21:13 | NUR ---
lantus as ordered not given due to blood sugar 76
[2019-08-29] MEDS: TAMSULOSIN 0.4 MG CAP.SR.24H GT SCH (21:34)
--- NOTE | 2019-08-29 22:20 | NUR ---
Patient seen and examined by Mack wolff, relayed that patient does not have any sliding scale order, and lantus held due to blood sugar 76, with no new order at this time, patient feeding increase to 40ml/hr, no residual at this time, will continue to monitor patient closely.
[2019-08-30] VITALS: BP 99/65
[2019-08-30] MEDS: IV 1/2NS 1000 ML 1,000 ML IV SCH (01:49)
--- NOTE | 2019-08-30 01:49 | NUR ---
Patient blood sugar noted 68 at this time, given orange juice, will check in 15 minutes
--- NOTE | 2019-08-30 02:17 | NUR ---
Rechecked blood sugar at this time 98, called Dr Mack Dolan relayed patient condition, vital signs and episode of low blood sugar, with new order for blood sugar monitoring Q6Hrs using mild scale, Noted, carried out
[2019-08-30] MEDS ORDERED: INSULIN REGULAR, HUMAN 100 UNIT/ML 3 ML VIAL SQ PRN (02:30)
[2019-08-30] MEDS ORDERED: DEXTROSE 50%-WATER 50 ML DISP.SYRIN IV PRN (02:30)
[2019-08-30 04:00] VITALS: BP 95/61
[2019-08-30] MEDS: MEROPENEM 500 MG in IV NS 0.9% 50 ML IV SCH ×2 (04:59→16:38)
[2019-08-30] MEDS: VALPROIC ACID 250 MG/5 ML UDC GT SCH ×3 (05:00→21:28)
[2019-08-30] MEDS: BLOOD SUGAR DIAGNOSTIC 1 EACH STRIP IN SCH ×3 (05:41→16:50)
[2019-08-30 06:21] LABS: BASOPHILS % (AUTO) 0.2 % (0.0-2.0); EOSINOPHILS % (AUTO) 1.4 % (0.0-6.0); HEMATOCRIT 25 % (39-51); HEMOGLOBIN 7.9 g/dL (13.5-17.5); LYMPHOCYTES # (AUTO) 3.4 /CMM (0.8-4.8); LYMPHOCYTES % (AUTO) 26.6 % (20.0-44.0); MEAN CORPUSCULAR HGB CONC 32 g/dl (31.0-36.0); MEAN CORPUSCULAR VOLUME 97 fL (80-96); MONOCYTES # (AUTO) 1.5 /CMM (0.1-1.30); MONOCYTES % (AUTO) 12.2 % (2.0-12.0); NEUTROPHILS # (AUTO) 7.6 /CMM (1.8-8.9); NEUTROPHILS % (AUTO) 59.6 % (43.0-81.0); PLATELET COUNT (AUTO) 564 /CMM (150-450); WHITE BLOOD COUNT (AUTO) 12.7 K/uL (4.3-11.0)
[2019-08-30 06:44] LABS: CALCIUM, SERUM 8.5 mg/dL (8.5-10.1); CREATININE 1.6 mg/dL (0.6-1.3); MAGNESIUM 1.7 mg/dL (1.8-2.4); PHOSPHORUS 3.8 mg/dL (2.5-4.9); POTASSIUM 4.3 mmol/L (3.5-5.1)
--- NOTE | 2019-08-30 06:44 | NUR ---
TELE/RN NOTES Patient remained in bed, awake, open eyes, non verbal. No S/S of acute distress noted, breathing even and unlabored on prescribed vent settings, No SOB noted. No S/S of pain at this time, no facial grimacing noted, F/C and nephrostomy tube, patent, draining well. G-tube in place, patent connected to feeding at 40cc/HR. HOB elevated, On tele monitoring with sinus Rhythm, PICC line patent, flushed, with fluids as ordered. All due meds given as ordered, treatments rendered, tolerated well. kept clean and dry, needs attendant, Safety maintained, bed at the lowest locked position, Call light within reach. Will endorse to AM Shift nurse for LIZETH.
[2019-08-30 08:00] VITALS: BP 109/71
[2019-08-30] MEDS: ASCORBIC ACID 500 MG TABLET GT SCH (08:45)
[2019-08-30] MEDS: CHLORHEXIDINE GLUCONATE 15 ML UDC MM SCH ×2 (08:45→16:50)
[2019-08-30] MEDS: IV D5W 1,000 ML IV SCH ×2 (08:45→21:26)
[2019-08-30] MEDS: ACIDOPHILUS/BULGARICUS 1 EACH TAB.CHEW GT SCH ×3 (08:45→16:50)
[2019-08-30] MEDS: ZINC SULFATE 220 MG CAPSULE GT SCH (08:45)
[2019-08-30] MEDS: CALCIUM CARB 250MG /VITAMIN D 1 UDTAB GT SCH (08:46)
[2019-08-30] MEDS: METOPROLOL TARTRATE 50 MG TABLET PO SCH ×2 (08:46→21:37)
[2019-08-30] MEDS: PANTOPRAZOLE 40 MG/PACK PACK GT SCH ×2 (08:46→21:28)
[2019-08-30] MEDS: PROSOURCE / PROSTAT (PYXIS) 30 ML UDC GT SCH (08:46)
[2019-08-30] MEDS: HYDROGEL DRESSING 90 GM TUBE TP SCH (08:46)
[2019-08-30] MEDS: SILVER SULFADIAZINE CREAM 25 GM TUBE TP SCH (08:47)
[2019-08-30] MEDS: HEPARIN SODIUM, PORCINE 5000 UNITS/1 ML VIAL SQ SCH (09:00)
[2019-08-30] MEDS: Magnesium 1GM/D5W 100ML PREMIX 100 ML IV SCH ×2 (10:45→12:55)
[2019-08-30] MEDS: BICALUTAMIDE 50 MG TABLET GT SCH (10:46)
--- NOTE | 2019-08-30 11:51 | NUR ---
RT PER DR TSANG ORDER TRACH WAS CHANGED TO A SHILEY 10. PATIENT TOLERATED WELL, MIN BLEEDING AROUND TRACH SITE. NO LEAK HEARD. BACK UP TRACH PLACED AT HOB Addendum: 08/30/19 at 1152 by ARIAS SALMON RT Amended: Links added.
[2019-08-30 12:00] VITALS: BP 115/65
[2019-08-30] MEDS ORDERED: SCOPOLAMINE HBR 1 EA PATCH.TD72 TD SCH (13:00)
[2019-08-30 16:00] VITALS: BP 99/64
[2019-08-30 20:00] VITALS: BP 114/74
--- NOTE | 2019-08-30 20:00 | NUR ---
GERALDINE RN NOTES Received patient report from am rn. Patient is obtunded, open eyes, non verbal. No S/S of acute distress noted, breathing even and unlabored on vent settings, No S/S of pain at this time, no facial grimacing noted, F/C and nephrostomy tube are in place, patent, draining well. G-tube in place, patent connected to feeding at 40cc/HR. HOB elevated, On tele monitoring with sinus Rhythm, PICC line patent, flushed, with fluids as ordered. Safety maintained, bed at the lowest locked position, Call light within reach. Will continue to monitor.
--- NOTE | 2019-08-30 20:07 | NUR ---
RECEIVED PT VENT, TRACH WITH SHILEY 10. B/S DM. SERA JONES FOR MOD AMT OF THIN WHITE SECRETIONS. VENT ALARMS SET AND AUDIBLE. TRACH IS SECURE. AMBU BAG AT BEDSIDE. CONTINUE [facility] VENT SUPPORT. Addendum: 08/30/19 at 2009 by MARIAA CHAVEZ RT Amended: Links added.
[2019-08-30] MEDS: TAMSULOSIN 0.4 MG CAP.SR.24H GT SCH (21:29)
[2019-08-30] MEDS: INSULIN GLARGINE, 100 UNIT/ML CARTRIDGE SQ SCH (21:35)
[2019-08-31] VITALS: BP 113/75
[2019-08-31] MEDS: BLOOD SUGAR DIAGNOSTIC 1 EACH STRIP IN SCH ×3 (00:38→12:30)
[2019-08-31 04:00] VITALS: BP 111/74
[2019-08-31] MEDS: IV D5W 1,000 ML IV SCH (04:52)
[2019-08-31] MEDS: VALPROIC ACID 250 MG/5 ML UDC GT SCH ×2 (04:52→12:33)
[2019-08-31] MEDS: MEROPENEM 500 MG in IV NS 0.9% 50 ML IV SCH ×2 (04:52→16:41)
[2019-08-31 06:50] LABS: CALCIUM, SERUM 8.2 mg/dL (8.5-10.1); CREATININE 1.3 mg/dL (0.6-1.3); MAGNESIUM 1.9 mg/dL (1.8-2.4); POTASSIUM 4.2 mmol/L (3.5-5.1)
--- NOTE | 2019-08-31 07:30 | NUR ---
RN NOTES RECEIVED PATIENT IN BED, WITH SPONTANEOUS EYE OPENING. NON VERBAL. VENT AND TRACH DEPENDENT. NO SOB NOTED. TOLERATING CURRENT VENT SETTING WELL. PATIENT WITH COPIOUS SECRETIONS. SUCTIONED FOR AIRWAY CLEARANCE AND TO KEEP PATIENT CLEAN. SINUS RHYTHM ON THE MONITOR WITH HR ON THE 80'S. GT IN PLACE, NO RESIDUAL ON CHECKING. FEEDING INFUSING AT 50CC/HR , GOAL AT 70CC/HR WILL ADJUST ACCORDINGLY. IVF OF D5NS RUNNING AT 100CC/HR INFUSING WELL OVER THE PICC ON THE R GROIN AREA, DRESSING CLEAN AND INTACT. R NEPHROSTOMY TUBE IN PLACE. PARK CATHETER IN PLACE DRAINING VIA GRAVITY. HOB KEPT ELEVATED. SAFETY MEASURES OBSERVED AND MAINTAINED. BED IN LOW AND LOCKED POSITIONED. CALL LIGHT WITHIN REACH, WILL CONTINUE TO MONITOR AND ANTICIPATED NEEDS
[2019-08-31 08:00] VITALS: BP_SYST 120; BP_SYST 150; BP_DIAS 68
--- NOTE | 2019-08-31 08:36 | NUR ---
RT PT RECEIVED ON ABOVE VENT SETTINGS. PT SOLITARIO ENGEL 10. HOB AT 30 DEGREES. VENT PLUGGED IN TO RED OUTLET. SPARE TRACH AT BEDSIDE. AMBU BAG AT BEDSIDE. MODERATE THICK WHITE SECRETIONS SUCTIONED. PT IS IN NO APPARENT RESPIRATORY DISTRESS. WILL CONTINUE TO MONITOR. Addendum: 08/31/19 at 1052 by MELO COX RT Amended: Links added.
[2019-08-31] MEDS: ACIDOPHILUS/BULGARICUS 1 EACH TAB.CHEW GT SCH ×3 (09:19→17:13)
[2019-08-31] MEDS: BICALUTAMIDE 50 MG TABLET GT SCH (09:19)
[2019-08-31] MEDS: CALCIUM CARB 250MG /VITAMIN D 1 UDTAB GT SCH (09:19)
[2019-08-31] MEDS: PANTOPRAZOLE 40 MG/PACK PACK GT SCH (09:19)
[2019-08-31] MEDS: CHLORHEXIDINE GLUCONATE 15 ML UDC MM SCH ×2 (09:20→17:13)
[2019-08-31] MEDS: ZINC SULFATE 220 MG CAPSULE GT SCH (09:20)
[2019-08-31] MEDS: ASCORBIC ACID 500 MG TABLET GT SCH (09:20)
[2019-08-31] MEDS: PROSOURCE / PROSTAT (PYXIS) 30 ML UDC GT SCH (09:20)
[2019-08-31] MEDS: METOPROLOL TARTRATE 50 MG TABLET PO SCH (09:21)
[2019-08-31] MEDS: HYDROGEL DRESSING 90 GM TUBE TP SCH (09:21)
[2019-08-31] MEDS: SILVER SULFADIAZINE CREAM 25 GM TUBE TP SCH (09:22)
[2019-08-31 12:00] VITALS: BP 114/66
[2019-08-31] MEDS: GLUCERNA 1.2 1,000 ML BOTTLE NG PRN (12:47)
[2019-08-31] MEDS ORDERED: MERO1VIA IV (13:16)
[2019-08-31] MEDS ORDERED: FLUC100T8 PO (13:16)
--- NOTE | 2019-08-31 14:00 | NUR ---
RN NOTES DR. ROSALES WITH ORDER FOR DISCHARGE. DISCHARGE ORDERS NOTED AND CARRIED OUT
[2019-08-31] MEDS: EPOETIN ALFA (4000 UNIT) 4,000 UNIT/ML VIAL SQ SCH (15:26)
[2019-08-31 16:00] VITALS: BP 109/63
--- NOTE | 2019-08-31 16:00 | NUR ---
RN NOTES CALLED SARAY GORMAN TO GIVE REPORT. ALL DISCHARGE AND MEDICATION INSTRUCTIONS GIVEN TO COREY LEE ON REPORT
[2019-08-31] MEDS ORDERED: FLUCONAZOLE (100 MG) 100 MG TABLET PO SCH (18:00)
--- NOTE | 2019-08-31 18:06 | NUR ---
RN NOTES PATIENT WHEELED OUT OF THE UNIT ACCOMPANIED BT 2 EMT AND RT.
== END 2019-08-31 17:30 | DRG 252 ==
LOC: ER 09:31 → TELE1 11:30 → TELE-TD 12:58 → TELE1 08-25 09:54
PROVIDERS: ADMIT Nurse Practitioner Acute Care; ATTEND Internal Medicine
PROC: 5A1955Z Respiratory Ventilation, Greater than 96 Consecutive Hours (ICD-10-PCS; principal; 2019-08-23)
PROC: 30233P1 Transfusion of Nonautologous Frozen Red Cells into Peripheral Vein, Percutaneous Approach (ICD-10-PCS; principal; 2019-08-23)
DX: K94.22 Gastrostomy infection (principal); N17.0 Acute kidney failure with tubular necrosis; J96.21 Acute and chronic respiratory failure with hypoxia; R65.21 Severe sepsis with septic shock; Z99.11 Dependence on respirator [ventilator] status; A41.9 Sepsis, unspecified organism; G93.41 Metabolic encephalopathy; E46 Unspecified protein-calorie malnutrition; J90 Pleural effusion, not elsewhere classified; E87.2 Acidosis; R53.2 Functional quadriplegia; Z93.0 Tracheostomy status; E87.1 Hypo-osmolality and hyponatremia; E87.0 Hyperosmolality and hypernatremia; E11.22 Type 2 diabetes mellitus with diabetic chronic kidney disease; F09 Unspecified mental disorder due to known physiological condition; E87.5 Hyperkalemia; N18.9 Chronic kidney disease, unspecified; D63.8 Anemia in other chronic diseases classified elsewhere; K21.9 Gastro-esophageal reflux disease without esophagitis; R13.10 Dysphagia, unspecified; G40.909 Epilepsy, unspecified, not intractable, without status epilepticus; Z86.73 Personal history of transient ischemic attack (TIA), and cerebral infarction without residual deficits; Z85.46 Personal history of malignant neoplasm of prostate; Z74.01 Bed confinement status; I25.10 Atherosclerotic heart disease of native coronary artery without angina pectoris; D72.829 Elevated white blood cell count, unspecified; E88.09 Other disorders of plasma-protein metabolism, not elsewhere classified; N40.0 Benign prostatic hyperplasia without lower urinary tract symptoms; L03.311 Cellulitis of abdominal wall; B95.62 Methicillin resistant Staphylococcus aureus infection as the cause of diseases classified elsewhere; Y83.9 Surgical procedure, unspecified as the cause of abnormal reaction of the patient, or of later complication, without mention of misadventure at the time of the procedure; B96.1 Klebsiella pneumoniae [K. pneumoniae] as the cause of diseases classified elsewhere; B95.2 Enterococcus as the cause of diseases classified elsewhere; K94.21 Gastrostomy hemorrhage; K80.20 Calculus of gallbladder without cholecystitis without obstruction; D68.59 Other primary thrombophilia; B37.49 Other urogenital candidiasis; I70.25 Atherosclerosis of native arteries of other extremities with ulceration; L97.519 Non-pressure chronic ulcer of other part of right foot with unspecified severity; E11.51 Type 2 diabetes mellitus with diabetic peripheral angiopathy without gangrene; M24.572 Contracture, left ankle; M24.571 Contracture, right ankle; S00.00XA Unspecified superficial injury of scalp, initial encounter; X58.XXXA Exposure to other specified factors, initial encounter; Y92.89 Other specified places as the place of occurrence of the external cause; Z93.6 Other artificial openings of urinary tract status; E86.1 Hypovolemia; E61.1 Iron deficiency
CPT/HCPCS: 31720; 36415; 36600; 71045-TC; 76770-TC; 80048-TC; 80053-TC; 80061-TC; 80076-TC; 80202-TC; 81000-TC; 82272-TC; 82803-TC; 82962-TC; 83540-TC; 83605-TC; 83735-TC; 83880; 84100-TC; 84443-TC; 84484-TC; 85025-TC; 85027-TC; 85730-TC; 86850-TC; 86921-TC; 87040-TC; 87070-TC; 87086-TC; 87186-TC; 93307-TC; 94002-TC; 94003-TC; 94760-TC; 94762-TC; 99082-TC; A4216; A4623; A6248; A6253; A6403; A7526; G0378; J0885; J1644; J1815; J2185; J2543; J3370; J3475; J3490; J7030; J7040; J7050; J7060; J7070; P9016-BL

== ENCOUNTER 2019-09-11 13:43 | Inpatient (IN) | payer MEDICAID ==
[~2019-09-11] VITALS: Ht 172.7 cm; Wt 80.3 kg
[2019-09-11] VITALS (9 sets, daily range): BP systolic 85–103; BP diastolic 35–77
[~2019-09-11 13:43] MED LIST changes: +ACET-2605 GT; -ACET650S26 GT; +AMIN30LI2 GT; +CALC-7 GT; -CALC500T52 GT; +CHLO118L6 TP; -DOCU50LI GT; +FLUC100T8 PO; +MERO1VIA IV; +NUTR1PAC14 GT; -NUTR1PAC14 PO; -PROT946L GT; -[UNRECOGNIZED DRUG - CODE] IV
--- NOTE | 2019-09-11 13:55 | NUR ---
RAMILA FROM [facility], C/O FEVER TEMP:102.7, TACHYCARDIC, pt aaox0, pt on monitor, md at bedside for eval
[2019-09-11] MEDS ORDERED: IV NS 0.9% 1,000 ML BAG IV ONE ×2 (14:00→15:30)
[2019-09-11] MEDS ORDERED: ACETAMINOPHEN 650 MG/SUPP.RECT RC ONE ×2 (14:00→14:09)
--- NOTE | 2019-09-11 14:00 | NUR ---
RT RECEIVED PT FROM EMS. VENT TRACH VENT DEPENDENT. PT HAS SOLITARIO # 10 TRACH OPERATIONS SYSTEMS SPECIALIST DONE AND TRACH IS SECURE. VENT SETTINGS OBTAINED FROM FACILITY. VENT PLUGGED IN RED OUTLET. ALARMS CHECKED AND AUDIBLE. AMBU BAG NOTED HOB. JOSE B/S SX W/ MOD THK VALLES SECRETIONS. WILL CONTINUE TO MONITOR T/O SHIFT.
[2019-09-11 14:02] LABS: BASOPHILS % (AUTO) 0.4 % (0.0-2.0); EOSINOPHILS % (AUTO) 0.9 % (0.0-6.0); HEMATOCRIT 23 % (39-51); LYMPHOCYTES # (AUTO) 1.6 /CMM (0.8-4.8); LYMPHOCYTES % (AUTO) 12.9 % (20.0-44.0); MEAN CORPUSCULAR HGB CONC 31 g/dl (31.0-36.0); MEAN CORPUSCULAR VOLUME 97 fL (80-96); MONOCYTES # (AUTO) 2.3 /CMM (0.1-1.30); MONOCYTES % (AUTO) 18.8 % (2.0-12.0); NEUTROPHILS # (AUTO) 8.2 /CMM (1.8-8.9); PLATELET COUNT (AUTO) 318 /CMM (150-450); RED BLOOD CELL COUNT(AUTO) 2.32 MIL/uL (4.5-6.0); WHITE BLOOD COUNT (AUTO) 12.3 K/uL (4.3-11.0)
[2019-09-11 14:11] LABS: HEMOGLOBIN 6.9 g/dL (13.5-17.5)
[2019-09-11] MEDS ORDERED: FAMO20TA8 GT (14:12)
[2019-09-11] MEDS ORDERED: IPRA3AMP23 IH (14:12)
[2019-09-11] MEDS ORDERED: NUT.237L31 GT (14:12)
[2019-09-11 14:23] LABS: CALCIUM, SERUM 9.1 mg/dL (8.5-10.1); CARBON DIOXIDE 23 mmol/L (21-32); CHLORIDE 110 mmol/L (98-107); CREATININE 2.4 mg/dL (0.6-1.3); GLUCOSE 74 mg/dL (74-106); POTASSIUM 4.1 mmol/L (3.5-5.1); SODIUM SERUM 144 mmol/L (136-145); UREA NITROGEN, BLOOD 59 mg/dL (7-18)
--- NOTE | 2019-09-11 14:33 | NUR ---
NURSING SUP GAVE BED 121.
[2019-09-11 14:36] LABS: ALANINE AMINOTRANSFERASE 14 U/L (12-78); ALKALINE PHOSPHATASE 348 U/L (46-116); ASPARTATE AMINOTRANSFERASE 38 U/L (15-37); BILIRUBIN,DIRECT 0.3 mg/dL (0.0-0.2); BILIRUBIN,TOTAL 0.4 mg/dL (0.2-1.0); TOTAL PROTEIN, SERUM 9.1 g/dL (6.4-8.2)
[2019-09-11 14:39] LABS: ALBUMIN 1.3 g/dL (3.4-5.0)
--- NOTE | 2019-09-11 14:39 | NUR ---
albumin 1.3
[2019-09-11 14:56] LABS: APPEARANCE,URINE Cloudy (CLEAR); BILIRUBIN,URINE Negative (NEGATIVE); BLOOD, URINE Large Ery/uL (NEGATIVE); COLOR,URINE Dark (YELLOW); KETONES,URINE Trace (NEGATIVE); LEUKOCYTE ESTERASE ,URINE Small (NEGATIVE); NITRITE, URINE Negative (NEGATIVE); PH,URINE 5.5 (5.0-8.0); PROTEIN,URINE >=300 mg/dl (NEGATIVE); UGLUCOSE Negative (NEGATIVE)
[2019-09-11 15:09] LABS: RBC,URINE TOO NUMEROUS TO COUN /HPF (0-2)
[2019-09-11 15:09] LABS: BAND % (MANUAL) 13 % (0.0-5.0); LYMPHOCYTES % (MANUAL) 11 % (16-48); METAMYELOCYTES % 3 % (0-0); MONOCYTES % (MANUAL) 20 % (0-11.0); NEUTROPHILS % (MANUAL) 53 (42-76)
[2019-09-11 15:10] LABS: BACTERIA,URINE Many /HPF (None Seen); SQUAMOUS EPITHELIAL CELL,UR Few /HPF (None Seen)
[2019-09-11] MEDS ORDERED: PIPERACILLIN /TAZOBACTAM 3.375 G VIAL IV ONE (15:23)
[2019-09-11] MEDS ORDERED: ALBUMIN 25% 100 ML IV ONE (15:24)
[2019-09-11] MEDS ORDERED: PIPERACILLIN /TAZOBACTAM 3.375 G in IV D5W 50 ML IV ONE (15:30)
[2019-09-11] MEDS ORDERED: ALBUMIN 25% 12.5 GM/50 ML BOTTLE IV ONE (15:30)
[2019-09-11] MEDS ORDERED: IV NS 0.9% 500 ML BAG IV ONE (15:30)
--- NOTE | 2019-09-11 15:50 | NUR ---
CALLED FOR REPORT, NURSE NOT AVAILABLE-- GUNNER
[2019-09-11] MEDS ORDERED: PANTOPRAZOLE 40 MG VIAL ONE (15:51)
[2019-09-11] MEDS ORDERED: IBUPROFEN 600 MG TABLET PO ONE ×2 (15:53→16:00)
[2019-09-11] MEDS ORDERED: PANTOPRAZOLE 40 MG VIAL IV ONE (16:00)
--- NOTE | 2019-09-11 16:03 | NUR ---
REPORT GIVEN TO COLIN NICOLE FOR LIZETH
[2019-09-11 16:17] LABS: OCCULT BLOOD STOOL NEGATIVE (NEGATIVE)
--- NOTE | 2019-09-11 16:21 | NUR ---
PER ZAC SUPPLY PERSON, TO UPGRADE PT TO ICU, NURSING SUP AWARE, REQSTED FOR BED
[2019-09-11] MEDS ORDERED: IV NS 0.9% 1,000 ML IV PRN (16:53)
[2019-09-11] MEDS ORDERED: MORPHINE SULFATE INJ 4 MG/ML DISP.SYRIN IV PRN (17:00)
[2019-09-11] MEDS ORDERED: NOREPINEPHRINE 8 MG in IV D5W 500 ML IV PRN (17:00)
[2019-09-11] MEDS ORDERED: ONDANSETRON HCL/PF 4 MG/2 ML VIAL IVP PRN (17:00)
[2019-09-11] MEDS ORDERED: LORAZEPAM INJ 2 MG/ML VIAL IV PRN (17:00)
[2019-09-11] MEDS ORDERED: ACETAMINOPHEN 650 MG/SUPP.RECT RC PRN (17:00)
--- NOTE | 2019-09-11 17:13 | NUR ---
258-ICU. PRIMARY NURSE AWARE.
[2019-09-11] MEDS ORDERED: GLUCERNA 1.5 1,000 ML BOTTLE GT SCH (17:30)
[2019-09-11] MEDS ORDERED: BISACODYL SUPP (10 MG) 10 MG/SUPP.RECT SUPP.RECT RC PRN (17:30)
--- NOTE | 2019-09-11 17:34 | NUR ---
REPORT GIVEN KONSTANTIN RN FOR LIZETH
[2019-09-11] MEDS ORDERED: FEE PK DOSING 1 MIN EA MC ONE (17:38)
--- NOTE | 2019-09-11 18:06 | NUR ---
RT PT NOT GETTING VOLUME. PT CUFF BLOWN. DR SAMANO AWARE AND DID TRACH CHANGE. MIINIMAL BLEEDING. JOSE B/S. AND PT RECEIVING APPROPRIATE TIDAL VOLUMES.
--- NOTE | 2019-09-11 18:19 | NUR ---
pt transported to icu
--- NOTE | 2019-09-11 18:30 | NUR ---
ICU/RN: ADMISSION NOTE RECEIVED PT FROM ER. REPORT RECEIVED FROM COREY TORRES. PT TRANSFERRED BY HEATH VIA ACLS GUIDELINES. PT OBTUNDED, VEGETATIVE STATE, DOES NOT RESPOND TO PAINFUL STIMULI. TRACH TO VENT, SHILEY 10, ON VENT SETTINGS ORDERED BY . SINUS TACH ON TELE. ONE UNIT TRANSFUSED IN ER. PARK CATH IN PLACE, HEMATURIA NOTED. GTUBE IN PLACE, CLAMPED NOW. RIGHT NEPHROSTOMY DRAINING. RIGHT FEMORAL DOUBLE LUMEN IN PLACE. PT FEBRILE TEMP OF 101.1. ALL NEEDS WILL BE ATTENDED TO, SAFETY MEASURES TAKEN, BED IN LOW POSITION, SIDE RAILS UP, CALL LIGHT WITHIN REACH.
--- NOTE | 2019-09-11 18:45 | NUR ---
ICU/RN: LAWRENCE AT BEDSIDE. WILL INSERT NEW ORDERS. WILL ENDORSE TO NIGHT NURSE
[2019-09-11] MEDS ORDERED: Z GUARD REMEDY 4 OZ OINT TP PRN (19:00)
[2019-09-11] MEDS: BLOOD SUGAR DIAGNOSTIC 1 EACH STRIP IN SCH (19:09)
[2019-09-11] MEDS: DEXTROSE 50%-WATER 50 ML DISP.SYRIN IV PRN ×2 (19:10→21:12)
[2019-09-11] MEDS: VANCOMYCIN 1 GM in IV D5W 250 ML IV SCH (19:28)
--- NOTE | 2019-09-11 19:38 | NUR ---
ICU/RN ENDING NOTES,AM BEDSIDE REPORT ENDORSED TO NIGHT NURSE. PT OBTUNDED. VENT TO TRACH, NO DISTRESS. VSS. PT FEBRILE. ALL NEEDS ATTENDED TO, REPORT ENDORSED FOR LIZETH. SAFETY MEASURES TAKEN, BED IN LOW POSITION, SIDE RAILS UP, CALL LIGHT WITHIN REACH, UNABLE TO USE.
[2019-09-11] MEDS ORDERED: MEROPENEM 500 MG in IV NS 0.9% 50 ML IV SCH (20:00)
[2019-09-11] MEDS ORDERED: PIPERACILLIN /TAZOBACTAM 2.25 G in IV D5W 50 ML IV SCH (21:00)
[2019-09-11] MEDS: VALPROIC ACID 250 MG/5 ML UDC GT SCH (21:14)
[2019-09-11] MEDS: HEPARIN SODIUM, PORCINE 5000 UNITS/1 ML VIAL SQ SCH (21:18)
[2019-09-11] MEDS: TAMSULOSIN 0.4 MG CAP.SR.24H GT SCH (21:46)
[2019-09-12] VITALS (23 sets, daily range): BP systolic 86–145; BP diastolic 47–108
[2019-09-12] MEDS: BLOOD SUGAR DIAGNOSTIC 1 EACH STRIP IN SCH ×4 (00:01→18:05)
[2019-09-12] MEDS: INSULIN REGULAR, HUMAN 100 UNIT/ML 3 ML VIAL SQ PRN ×2 (00:03→12:00)
[2019-09-12] MEDS: IV D5/ 0.9% NACL 1,000 ML IV PRN ×2 (00:26→12:06)
[2019-09-12 04:40] LABS: BASOPHILS # (AUTO) 0.1 /CMM (0.0-0.2); BASOPHILS % (AUTO) 0.4 % (0.0-2.0); EOSINOPHILS % (AUTO) 2.9 % (0.0-6.0); LYMPHOCYTES # (AUTO) 3.6 /CMM (0.8-4.8); LYMPHOCYTES % (AUTO) 23.8 % (20.0-44.0); MEAN CORPUSCULAR HGB CONC 31 g/dl (31.0-36.0); MEAN CORPUSCULAR VOLUME 95 fL (80-96); MONOCYTES # (AUTO) 2.6 /CMM (0.1-1.30); MONOCYTES % (AUTO) 17.1 % (2.0-12.0); NEUTROPHILS # (AUTO) 8.5 /CMM (1.8-8.9); NEUTROPHILS % (AUTO) 55.8 % (43.0-81.0); PLATELET COUNT (AUTO) 252 /CMM (150-450); RED BLOOD CELL COUNT(AUTO) 2.06 MIL/uL (4.5-6.0); WHITE BLOOD COUNT (AUTO) 15.2 K/uL (4.3-11.0)
[2019-09-12 04:41] LABS: CALCIUM, SERUM 9.3 mg/dL (8.5-10.1); CREATININE 2.6 mg/dL (0.6-1.3); MAGNESIUM 1.8 mg/dL (1.8-2.4); PHOSPHORUS 3.9 mg/dL (2.5-4.9); POTASSIUM 4.1 mmol/L (3.5-5.1)
[2019-09-12 05:16] LABS: HEMATOCRIT 20 % (39-51); HEMOGLOBIN 6.1 g/dL (13.5-17.5)
[2019-09-12] MEDS: VALPROIC ACID 250 MG/5 ML UDC GT SCH ×3 (05:59→21:50)
[2019-09-12 06:18] LABS: BAND % (MANUAL) 8 % (0.0-5.0); EOSINOPHILS % (MANUAL) 2 % (0-4); LYMPHOCYTES % (MANUAL) 23 % (16-48); MONOCYTES % (MANUAL) 16 % (0-11.0); NEUTROPHILS % (MANUAL) 51 (42-76)
--- NOTE | 2019-09-12 07:12 | NUR ---
RN NOTES NO SIGNIFICANT CHANGE OF CONDITION, OBTUNDED. VITALS WNL. WITH ORDERS TO TRANSFER TO LOWER LEVEL OF CARE. NOTED PARK DRAINING URINE WITH BLOOD. NO PHYSICAL MANIFESTATION OF PAIN OR DISCOMFORT. NO FACIAL GRIMACE. REPORTED BY LAB HEMOGLOBIN LEVEL IS AT 6.1, MD AWARE WITH ORDERS FOR 1 PACK OF RBC. ENDORSED TO AM SHIFT FOR CONTINUITY OF CARE.
--- NOTE | 2019-09-12 07:15 | NUR ---
ICU NOTES RECEIVED BEDSIDE REPORT FROM NOC. PT NONVERBAL IN VEGETATIVE STATE A/O X0. TRACH AND VENT TOLERATING SETTINGS AT THIS TIME NO S/S OF DISTRESS NOTED. GT CLAMPED AT THIS TIME RIGHT NEPHROSTOMY DRAINING CLOUDY YELLOW URINE PARK CATH DRAINING TEA COLORED URINE. RIGHT FEMORAL DOUBLE LUMEN RUNNING D5NS @100 ML/HR. HOB ELEVATED SAFETY AND ASPIRATION PRECAUTIONS IN PLACE BED IN LOW MAYUR POSITION. WILL CONT TO MONITOR ACCORDINGLY.
[2019-09-12] MEDS: CALCIUM CARB 250MG /VITAMIN D 1 UDTAB GT SCH (08:07)
[2019-09-12] MEDS: MEROPENEM 500 MG in IV NS 0.9% 100 ML IV SCH ×2 (08:07→20:28)
[2019-09-12] MEDS: LACTOBACILLUS RHAMNOSUS GG 1 EACH CAP.SPRINK GT SCH ×2 (08:07→18:04)
[2019-09-12] MEDS: CHLORHEXIDINE GLUCONATE 15 ML UDC MM SCH ×2 (08:07→18:04)
[2019-09-12] MEDS: ASCORBIC ACID 500 MG TABLET GT SCH (08:07)
[2019-09-12] MEDS: PANTOPRAZOLE 40 MG VIAL IV SCH (08:07)
[2019-09-12] MEDS: MULTIVITAMINS,THERAGRAN 1 UDTAB TABLET GT SCH (08:07)
[2019-09-12] MEDS: ZINC SULFATE 220 MG CAPSULE GT SCH (08:07)
[2019-09-12] MEDS: BICALUTAMIDE 50 MG TABLET GT SCH (08:07)
[2019-09-12] MEDS ORDERED: ARGININE/GLUTAMINE/CALCIUM BMB 1 EACH POWD.PACK GT SCH (09:00)
[2019-09-12] MEDS: HEPARIN SODIUM, PORCINE 5000 UNITS/1 ML VIAL SQ SCH ×2 (09:00→21:00)
--- NOTE | 2019-09-12 09:06 | NUR ---
HEPARIN HELD PT HGB 6.1. PT TO BE TRANSFUSED ALSO HEMATURIA NOTED IN PARK BAG
--- NOTE | 2019-09-12 09:15 | NUR ---
TELEPHONE CONSENT OBTAINED FROM DAUGHTER ADALBERTO [facility] BLOOD TRANSFUSION . VERIFIED BY SELF AND YUAN NICOLE
--- NOTE | 2019-09-12 10:00 | NUR ---
1 UNIT PRBCS STARTED . PROTOCOL FOLLOWED
[2019-09-12] MEDS ORDERED: ALBUTEROL FS 2.5 MG/0.5 ML VIAL.NEB NEB PRN (11:30)
[2019-09-12] MEDS: GLUCERNA 1.2 1,000 ML BOTTLE NG PRN (11:36)
--- NOTE | 2019-09-12 12:39 | NUR ---
IV TRANSFUSION COMPLETE NO ADVERSE RXN NOTED Addendum: 09/12/19 at 1240 by APRYL JOY RN IV BLOOD TRANSFUSION 1 UNIT PRBC
--- NOTE | 2019-09-12 14:30 | NUR ---
BEDBATH GIVEN ORAL AND WOUND CARE DONE . PT PLACED ON [employer] MATTRESS AND SCD APPLIED
--- NOTE | 2019-09-12 14:30 | NUR ---
PT TRANSFERED TO UNIT 314 BED 1 ACLS PROTOCOL WITH RT AND 2 RNS
--- NOTE | 2019-09-12 14:55 | NUR ---
REPORT GIVEN TO LEONARD RN 3W PT TO GO TO ROOM 314 BED 1
--- NOTE | 2019-09-12 15:35 | NUR ---
PROFESSOR OF POULTRY SCIENCE NOTES PATIENT RECEIVED FROM ICU. PATIENT OBTUNDED, OPENS EYES SPONTANEOUSLY. PATIENT IN NO RESPIRATORY DISTRESS, VENT SETTINGS PRESCRIBED. PATIENT WITH NO S/S OF PAIN AT THIS TIME. SKIN WARM TO TOUCH. IV D5NS INFUSING AT 100ML/HR ON THE RT FEMORAL DOUBLE LUMEN INTACT AND PATENT. GT INTACT AND PATENT RUNNING GLUCERNA 1.2 AT 40ML/HR, TOLERATING WELL. F/C DRAINING YELLOW URINE. PATIENT'S NEEDS ATTENDED. BED ON LOWEST LOCKED POSITION, SIDE RAILS UP, CALL LIGHT WITHIN REACH. WILL CONTINUE TO MONITOR.
[2019-09-12] MEDS: VANCOMYCIN 1 GM in IV D5W 250 ML IV SCH (18:16)
--- NOTE | 2019-09-12 19:05 | NUR ---
MARKETING/SALES PERSON NOTES RECEIVED PT IN BED AND OBTUNDED. PT OPENS EYES SPONTANEOUSLY. PT IN NO RESPIRATORY DISTRESS, VENT SETTINGS PRESCRIBED. NO S/S OF PAIN AT THIS TIME. PT WITH RFEMORAL DOUBLE LUMEN IV INFUSING D5NS INFUSING AT 100ML/HR. PT WITH GTUBE INTACT AND PATENT INFUSING GLUCERNA 1.2 AT 40ML/HR, TOLERATING WELL. F/C DRAINING YELLOW URINE. PT ALSO NOTED WITH NEPHROSTOMY DRAINING WELL. SAFETY MEASURES IN PLACE WITH BED IN LOWEST LOCKED POSITION WITH SIDE RAILS UP X2. CALL LIGHT WITHIN REACH. WILL CONTINUE TO MONITOR.
--- NOTE | 2019-09-12 19:15 | NUR ---
ECONOMICS ANALYST NOTES PATIENT IN NO RESPIRATORY DISTRESS, VENT SETTINGS PRESCRIBED. PATIENT WITH NO S/S OF PAIN AT THIS TIME. PATIENT'S NEEDS ATTENDED. BED ON LOWEST LOCKED POSITION, SIDE RAILS UP, CALL LIGHT WITHIN REACH. WILL ENDORSE TO ONCOMING NURSE.
--- NOTE | 2019-09-12 20:09 | NUR ---
PT RECEIVED ON VENT VIA TRACH. TRACH SECURE VIA TRACH TIE, AIRWAY PATENT. AMBU BAG AT BEDSIDE ALARMS SET AND AUDIBLE. PT RECEIVING NO TREATMENTS AT THIS TIME. NO RESP DISTRESS NOTED. Addendum: 09/12/19 at 2010 by VERNA MARQUEZ RT Amended: Links added.
--- NOTE | 2019-09-12 21:30 | NUR ---
AMPHIBIOUS OPERATIONS OFFICER NOTES MD ORDER TO HOLD HEPARIN. ALSO WITH NEW ORDER FOR 1 UNIT RBC. WILL CONTINUE TO MONITOR.
[2019-09-12] MEDS: TAMSULOSIN 0.4 MG CAP.SR.24H GT SCH (21:50)
--- NOTE | 2019-09-12 22:00 | NUR ---
PRICING CLERK NOTES ORDER FOR 1 UNIT PRBC, NO ORDER FOR H/H PRIOR PT NOTED WITH LOW H/H PER MD.
[2019-09-13] VITALS (11 sets, daily range): BP systolic 107–122; BP diastolic 63–79
--- NOTE | 2019-09-13 00:15 | NUR ---
DOMESTIC TECHNICIAN NOTES 1 UNIT RBC STARTED. WILL CONTINUE TO MONITOR.
[2019-09-13] MEDS: BLOOD SUGAR DIAGNOSTIC 1 EACH STRIP IN SCH ×4 (00:55→17:51)
[2019-09-13] MEDS: VALPROIC ACID 250 MG/5 ML UDC GT SCH ×3 (05:25→21:00)
[2019-09-13] MEDS: IV D5/ 0.9% NACL 1,000 ML IV PRN ×2 (05:34→18:06)
[2019-09-13 06:42] LABS: CALCIUM, SERUM 8.8 mg/dL (8.5-10.1); POTASSIUM 3.6 mmol/L (3.5-5.1)
--- NOTE | 2019-09-13 06:44 | NUR ---
WEATHER STRIP INSTALLER NOTES PT NOTED WITH FLUID LEAKING FROM GTUBE SIDE. FLUID LOOKS LIKE MUCOUS, BLOOD, FEEDING FORMULA. CHARGE NURSE AND MD MADE AWARE. NO NEW ORDERS. WILL CONTINUE TO MONITOR. Addendum: 09/13/19 at 0646 by COTY LACKEY RN FEEDING ALSO STOPPED AT THIS TIME.
--- NOTE | 2019-09-13 06:46 | NUR ---
CHAIR FINISHER NOTES PT IN BED RESTING AND OBTUNDED. PT OPENS EYES SPONTANEOUSLY. PT IN NO RESPIRATORY DISTRESS, VENT SETTINGS PRESCRIBED. NO S/S OF PAIN AT THIS TIME. PT WITH RFEMORAL DOUBLE LUMEN IV INFUSING D5NS INFUSING AT 100ML/HR. PT WITH GTUBE INTACT AND PATENT. F/C DRAINING YELLOW URINE. PT ALSO NOTED WITH NEPHROSTOMY DRAINING WELL. PT KEPT CLEAN, DRY, AND COMFORTABLE. PT TURNED Q2 HOURS THROUGHOUT SHIFT. SAFETY MEASURES IN PLACE WITH BED IN LOWEST LOCKED POSITION WITH SIDE RAILS UP X2. CALL LIGHT WITHIN REACH. WILL ENDORSE TO ONCOMING NURSE FOR LIZETH.
--- NOTE | 2019-09-13 07:30 | NUR ---
TELE/RN NOTES RECEIVED PATIENT ON BED AND OBTUNDED WITH STABLE V/S, NO SOB NOTED, OPENS EYES SPONTANEOUSLY, VENT SETTINGS PRESCRIBED. NO S/S OF PAIN NOTED, PATIENT WITH D5NS INFUSING AT 100ML/HR. IV ANTIBIOTIC WAS GIVEN, GT MEDS WAS ON HOLD MD WAS AWARE.F/C DRAINING YELLOW URINE, PATIENT HAVE ALSO NEPHROSTOMY DRAINING WELL, KEPT PATIENT CLEAN,DRY AND COMFORTABLE. TURNED PATIENT Q 2 HR THROUGHOUT THE SHIFT, SAFETY MEASURES IN PLACE WITH BED IN LOW LOCKED POSITION WITH SIDE RAILS UP X2. CALL LIGHT WITHIN REACH. PATIENT WITH GTUBE IN PLACE AT ON HOLD MD IS AWARE. WILL ENDORSE TO UPCOMING NURSE FOR LIZETH
[2019-09-13 08:23] LABS: BASOPHILS % (AUTO) 0.2 % (0.0-2.0); EOSINOPHILS % (AUTO) 3.1 % (0.0-6.0); HEMATOCRIT 36 % (39-51); HEMOGLOBIN 11.4 g/dL (13.5-17.5); LYMPHOCYTES # (AUTO) 1.7 /CMM (0.8-4.8); LYMPHOCYTES % (AUTO) 13.5 % (20.0-44.0); MEAN CORPUSCULAR HGB CONC 32 g/dl (31.0-36.0); MEAN CORPUSCULAR VOLUME 89 fL (80-96); MONOCYTES # (AUTO) 1.5 /CMM (0.1-1.30); MONOCYTES % (AUTO) 12.2 % (2.0-12.0); NEUTROPHILS # (AUTO) 8.8 /CMM (1.8-8.9); PLATELET COUNT (AUTO) 258 /CMM (150-450); RED BLOOD CELL COUNT(AUTO) 4.09 MIL/uL (4.5-6.0); WHITE BLOOD COUNT (AUTO) 12.4 K/uL (4.3-11.0)
[2019-09-13] MEDS: BICALUTAMIDE 50 MG TABLET GT SCH (09:00)
[2019-09-13] MEDS: MULTIVITAMINS,THERAGRAN 1 UDTAB TABLET GT SCH (09:00)
[2019-09-13] MEDS: ZINC SULFATE 220 MG CAPSULE GT SCH (09:00)
[2019-09-13] MEDS: ASCORBIC ACID 500 MG TABLET GT SCH (09:00)
[2019-09-13] MEDS: CALCIUM CARB 250MG /VITAMIN D 1 UDTAB GT SCH (09:00)
[2019-09-13] MEDS: LACTOBACILLUS RHAMNOSUS GG 1 EACH CAP.SPRINK GT SCH ×2 (09:00→17:00)
[2019-09-13] MEDS: MEROPENEM 500 MG in IV NS 0.9% 100 ML IV SCH (10:11)
[2019-09-13] MEDS: PANTOPRAZOLE 40 MG VIAL IV SCH (10:57)
[2019-09-13] MEDS: CHLORHEXIDINE GLUCONATE 15 ML UDC MM SCH ×2 (10:57→17:51)
[2019-09-13] MEDS: HEPARIN SODIUM, PORCINE 5000 UNITS/1 ML VIAL SQ SCH ×2 (11:15→21:43)
--- NOTE | 2019-09-13 11:41 | NUR ---
TELE/RN NOTE DR BRITO IS MADE AWARE THAT GT FEEDING WAS LEAKING FROM GT SITE DURING PIPE WASHER AND GT FEEDING HAS BEEN ON HOLD SINCE LAST NIGHT. ALSO, IS MADE AWARE/SHOWED GT SITE XANDER RED, INFLAMED AND SCANT AMOUNT OF BLOODY DISCHARGE. STATED THAT SHE WILL CALL FOR GI CONSULT.
--- NOTE | 2019-09-13 12:26 | NUR ---
TELE/RN NOTE DR BRITO IS MADE AWARE THAT GT MEDIATIONS DUE AT 0900 WERE NOT ADMINISTERED DUE TO GT MALFUNCTION. WITH NO NEW ORDERS.
--- NOTE | 2019-09-13 14:41 | NUR ---
TELE/RN NOTE DAPEKENE NOT GIVEN DUE AT 1300 DUE TO GT TUBE FEEDING MALFUNCTION.
--- NOTE | 2019-09-13 17:24 | NUR ---
TELE/RN NOTES CULTERELLE DUE AT 1700 NOT ADMINISTERED GT TUBE MALFUNCTION.
[2019-09-13] MEDS: VANCOMYCIN 1 GM in IV D5W 250 ML IV SCH (17:52)
--- NOTE | 2019-09-13 18:49 | NUR ---
TELE/RN NOTE THE PATIENT IN BED. NOT ALERT AND ORIENTED. OPENS EYES TO TACTILE STIMULI. PATIENT IS VENT AND TRACH. TOLERATES VENT SETTINGS WELL. PRN SUCTIONING DONE. NO MANIFESTATION OF DISCOMFORT DURING THE SHIFT. THE PATIENT IN NO APPARENT DISTRESS. PARK CATH PATENT AND DRAINING CLEAR, DARK YELLOW COLOR URINE. NO SEDIMENTS NOTED. RIGHT NEPHROSTOMY TUBE PRESENT AND DRAINING CLEAR, YELLOW COLOR URINE. GT FEEDING AND GT MEDICATIONS ARE ON HOLD DUE TO GT MALFUNCTION. DR BRITO IS MADE AWARE. BED LOW AND LOCKED. SIDE RAILS UP X3. CALL LIGHT WITHIN REACH. WILL ENDORSE TO PLATER PRINTED CIRCUIT BOARD PANELS.
--- NOTE | 2019-09-13 19:10 | NUR ---
TAPE CUTTER NOTES RECEIVED PT IN BED AND OBTUNDED. PT OPENS EYES SPONTANEOUSLY. PT IN NO RESPIRATORY DISTRESS, VENT SETTINGS PRESCRIBED. NO S/S OF PAIN AT THIS TIME. PT WITH RFEMORAL DOUBLE LUMEN IV INFUSING D5NS INFUSING AT 100ML/HR. PT WITH GTUBE MALFUNCTION AT THIS TIME. PT NOTED WITH F/C DRAINING WELL. PT ALSO NOTED WITH NEPHROSTOMY DRAINING WELL. SAFETY MEASURES IN PLACE WITH BED IN LOWEST LOCKED POSITION WITH SIDE RAILS UP X2. CALL LIGHT WITHIN REACH. WILL CONTINUE TO MONITOR.
--- NOTE | 2019-09-13 19:10 | NUR ---
TELE/RN NOTE ROCEPHIN DUE AT 1800 IS ENDORSED TO TOOL CRIB MANAGER. IT WAS NOT ADMINISTERED AT 1800 BECAUSE VACNO WAS SCHEDULED AT THE SAME TIME.
[2019-09-13] MEDS: CEFTRIAXONE 1 G in IV D5W 50 ML IV SCH (19:57)
--- NOTE | 2019-09-13 21:05 | NUR ---
TELE/RN NOTES VALPROIC ACID AT 2100 NOT ADMINISTERED GT TUBE MALFUNCTION.
[2019-09-13] MEDS: TAMSULOSIN 0.4 MG CAP.SR.24H GT SCH (21:57)
--- NOTE | 2019-09-13 21:57 | NUR ---
TELE/RN NOTES TAMSULOSIN AT 2200 NOT ADMINISTERED GT TUBE MALFUNCTION. WILL CONTINUE TO MONITOR.
[2019-09-14] VITALS: BP 109/71
[2019-09-14] MEDS: BLOOD SUGAR DIAGNOSTIC 1 EACH STRIP IN SCH ×4 (00:06→18:13)
[2019-09-14 03:57] VITALS: BP 108/71
[2019-09-14] MEDS: VALPROIC ACID 250 MG/5 ML UDC GT SCH ×3 (05:00→21:00)
--- NOTE | 2019-09-14 05:03 | NUR ---
ORE CRUSHER NOTES VALPROIC ACID AT 0500 NOT ADMINISTERED DUE TO GT TUBE MALFUNCTION. WILL CONTINUE TO MONITOR.
[2019-09-14] MEDS: IV D5/ 0.9% NACL 1,000 ML IV PRN ×2 (05:26→18:11)
--- NOTE | 2019-09-14 06:21 | NUR ---
GOLD MINER BLASTING CLOSING NOTES Patient currently resting in bed not alert and oriented. Eyes open spontaneously. No respiratory distress noted, patient is on vent and trach. Tolerating vent settings well. Patient is suctioned as needed. No apparent distress noted. Locke catheter is in place draining dark yellow urine. Nephrostomy bag is in place draining yellow clear fluid. Gtube feeding and medications on hold at the moment due to malfunction. Patient was kept clean and dry throughout shift. Safety precautions in place with bed in lowest position, locked, and side rails up x2. Patient was kept clean and dry throughout the night. Will endorse to oncoming shift about LIZETH.
[2019-09-14 06:29] LABS: BASOPHILS % (AUTO) 0.2 % (0.0-2.0); EOSINOPHILS % (AUTO) 2.3 % (0.0-6.0); HEMATOCRIT 32 % (39-51); HEMOGLOBIN 10.2 g/dL (13.5-17.5); LYMPHOCYTES # (AUTO) 2.4 /CMM (0.8-4.8); MEAN CORPUSCULAR HGB CONC 32 g/dl (31.0-36.0); MEAN CORPUSCULAR VOLUME 88 fL (80-96); MONOCYTES # (AUTO) 1.3 /CMM (0.1-1.30); MONOCYTES % (AUTO) 13.2 % (2.0-12.0); NEUTROPHILS # (AUTO) 6.1 /CMM (1.8-8.9); NEUTROPHILS % (AUTO) 60.3 % (43.0-81.0); PLATELET COUNT (AUTO) 285 /CMM (150-450); RED BLOOD CELL COUNT(AUTO) 3.56 MIL/uL (4.5-6.0); WHITE BLOOD COUNT (AUTO) 10.2 K/uL (4.3-11.0)
[2019-09-14 06:56] LABS: CALCIUM, SERUM 8.7 mg/dL (8.5-10.1); CREATININE 1.7 mg/dL (0.6-1.3); MAGNESIUM 1.9 mg/dL (1.8-2.4); PHOSPHORUS 3.3 mg/dL (2.5-4.9); POTASSIUM 3.3 mmol/L (3.5-5.1)
[2019-09-14 08:00] VITALS: BP 100/63
[2019-09-14] MEDS: HEPARIN SODIUM, PORCINE 5000 UNITS/1 ML VIAL SQ SCH ×2 (09:00→21:00)
[2019-09-14] MEDS: CALCIUM CARB 250MG /VITAMIN D 1 UDTAB GT SCH (09:00)
[2019-09-14] MEDS: BICALUTAMIDE 50 MG TABLET GT SCH (09:00)
[2019-09-14] MEDS: ZINC SULFATE 220 MG CAPSULE GT SCH (09:00)
[2019-09-14] MEDS: LACTOBACILLUS RHAMNOSUS GG 1 EACH CAP.SPRINK GT SCH ×2 (09:00→17:00)
[2019-09-14] MEDS: ASCORBIC ACID 500 MG TABLET GT SCH (09:00)
[2019-09-14] MEDS: MULTIVITAMINS,THERAGRAN 1 UDTAB TABLET GT SCH (09:00)
[2019-09-14 09:08] LABS: EOSINOPHILS % (MANUAL) 1 % (0-4); LYMPHOCYTES % (MANUAL) 24 % (16-48); MONOCYTES % (MANUAL) 13 % (0-11.0); NEUTROPHILS % (MANUAL) 62 (42-76)
[2019-09-14] MEDS: CHLORHEXIDINE GLUCONATE 15 ML UDC MM SCH ×2 (09:20→18:12)
[2019-09-14] MEDS: PANTOPRAZOLE 40 MG VIAL IV SCH (09:20)
[2019-09-14] MEDS ORDERED: POTASSIUM CHLORIDE 20 MEQ POWDER PACKET PO ONE (11:00)
[2019-09-14] MEDS ORDERED: POTASSIUM CHLORIDE 20 MEQ POWDER PACKET GT ONE (11:00)
--- NOTE | 2019-09-14 11:19 | NUR ---
ALLERGIST/NOTES DR BRITO IS AWARE HGB LEVEL TODAY IS 10.2 AND YESTERDAY 11.[address] IS HOLD HEPARIN AT 0900.
[2019-09-14] MEDS ORDERED: POTASSIUM CL. PREMIX PERIPHER. 50 ML IV SCH ×2 (11:27→11:30)
[2019-09-14 12:00] VITALS: BP 108/74
--- NOTE | 2019-09-14 12:39 | NUR ---
TELE/RN NOTE DEPAKANEN DUE AT 1300 IS NOT ADMINISTERED DUE TO PATIENT`S GT MALFUNCTION. DR BRITO IS MADE AWARE.
[2019-09-14 16:00] VITALS: BP 120/66
[2019-09-14] MEDS: EPOETIN ALFA (4000 UNIT) 4,000 UNIT/ML VIAL SQ SCH (18:13)
[2019-09-14] MEDS: CEFTRIAXONE 1 G in IV D5W 50 ML IV SCH (18:15)
[2019-09-14] MEDS: CHLORHEXIDINE GLUCONATE 4% 118 ML BOTTLE TP SCH (18:28)
--- NOTE | 2019-09-14 18:43 | NUR ---
ENERGY CONSERVATION TECHNICIAN NOTES THE PATIENT IS IN BED. PATIENT IS NOT ALERT OR ORIENTED BUT OPENS EYES TO TACTILE STIMULI. PATIENT IS ON VENT AND TRACH, TOLERATES IT WELL. IN NO APPARENT DISTRESS. PRN SUCTIONING, ORAL CARE RENDERED. RIGHT FEMORAL PICC LINE PATENT AND D5 NS INFUSING AT 100 ML/HR AND NO S/S INFILTRATING NOTED. GT PRESENT AND GT FEEDING HELD, WAITING FOR GI CONSULT. DR BRITO IS AWARE THAT GT FEEDING IS ON HOLD, GT MEDICATIONS ARE ON HOLD AND IS WORKING ON GETTING GI MD TO SEE THE PATIENT. PARK CATH PRESENT AND DRAINED LIGHT RED COLOR URINE. DR BRITO IS AWARE. RIGHT NEPHROSTOMY TUBE PRESENT AND DRAINING CLEAR, YELLOW COLOR URINE. GOOD AND GENTLE SKIN CARE RENDERED. KEPT CLEAN, DRY AND COMFORTABLE. TURNED AND REPOSITIONED THE PATIENT Q2 HR AND NEEDED. ALL NEEDS ATTENDED AND ANTICIPATED. SIDE RAILS UP X3. CALL LIGHT WITHIN REACH. WILL ENDORSE TO IN CLASSROOM TUTOR.
--- NOTE | 2019-09-14 19:10 | NUR ---
TELE/RN NOTE MESSAGED DR BRITO IN ORDER TO CHANGE DEPAKENE 500 MG Q8HR GT MEDICATION TO IV FORM MEDICATION, HOWEVER, NO RESPOND FROM DR BRITO. WILL ENDORSE TO FIXER SUPERVISOR TO CONTINUE TO FOLLOW UP WITH DOCTOR.
--- NOTE | 2019-09-14 19:15 | NUR ---
RN OPEN NOTES RECEIVED PATIENT RESTING COMFORTABLY IN BED, AROUSABLE TO STIMULI. OBTUNDED. NO SIGNS OF DISTRESS OR DISCOMFORT. BREATHING EVEN AND UNLABORED. [facility] WITH [facility]TINGS ORDERED. ON TELE MONITORING WITH ST 103 NOTED. HAS R FEMORAL PICC WITH D5NS INFUSING, PATENT AND INTACT, NO SIGNS OF REDNESS OR INFILTRATION. HAS G-TUBE INTACT, CURRENTLY CLAMPED AWAITING GI CONSULT. HAS F/C INTACT DRAINING CLOUDY YELLOW PINKISH FLUID. HAS R NEPHROSTOMY INTACT, DRAINING CLEAR YELLOW FLUID. BED IN LOW LOCKED POSITION WITH SIDE RAILS X2. HOB ELEVATED. CALL LIGHT WITHIN REACH. WILL CONTINUE TO MONITOR.
[2019-09-14 20:00] VITALS: BP 132/82
[2019-09-14] MEDS: LINEZOLID 600 MG TABLET PO SCH (21:00)
[2019-09-14] MEDS: VALPROATE 500 MG in IV D5W 100 ML IV SCH (21:39)
[2019-09-14] MEDS: TAMSULOSIN 0.4 MG CAP.SR.24H GT SCH (22:00)
[2019-09-15] MEDS: BLOOD SUGAR DIAGNOSTIC 1 EACH STRIP IN SCH ×4 (00:28→23:27)
[2019-09-15] MEDS ORDERED: VANCOMYCIN 1 GM in IV D5W 250 ML IV SCH (06:00)
--- NOTE | 2019-09-15 07:30 | NUR ---
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
[2019-09-15 07:54] LABS: CALCIUM, SERUM 8.8 mg/dL (8.5-10.1); CREATININE 1.6 mg/dL (0.6-1.3); MAGNESIUM 1.7 mg/dL (1.8-2.4); PHOSPHORUS 3.4 mg/dL (2.5-4.9); POTASSIUM 3.4 mmol/L (3.5-5.1)
[2019-09-15 08:00] VITALS: BP 122/70
--- NOTE | 2019-09-15 08:13 | NUR ---
RN CLOSING NOTES PATIENT RESTING COMFORTABLY IN BED, AROUSABLE TO STIMULI. OBTUNDED. NO SIGNS OF DISTRESS OR DISCOMFORT. BREATHING EVEN AND UNLABORED. [facility] WITH SETTINGS ORDERED. ON TELE MONITORING WITH ST 103 NOTED. HAS R FEMORAL PICC WITH D5NS INFUSING, PATENT AND INTACT, NO SIGNS OF REDNESS OR INFILTRATION. HAS G-TUBE INTACT, CURRENTLY CLAMPED AWAITING GI CONSULT. HAS F/C INTACT DRAINING CLOUDY YELLOW PINKISH FLUID. HAS R NEPHROSTOMY INTACT, DRAINING CLEAR YELLOW FLUID. ALL NEEDS MET. NO SIGNIFICANT CHANGES THROUGH THE NIGHT. PATIENT KEPT CLEAN DRY AND COMFORTABLE. REPOSITIONED Q2H AND PRN. BED IN LOW LOCKED POSITION WITH SIDE RAILS X2. HOB ELEVATED. CALL LIGHT WITHIN REACH. ENDORSED TO AM SHIFT FOR LIZETH.
[2019-09-15 09:00] LABS: BASOPHILS % (AUTO) 0.5 % (0.0-2.0); HEMATOCRIT 33 % (39-51); HEMOGLOBIN 10.4 g/dL (13.5-17.5); LYMPHOCYTES # (AUTO) 3.1 /CMM (0.8-4.8); LYMPHOCYTES % (AUTO) 29.8 % (20.0-44.0); MEAN CORPUSCULAR HGB CONC 32 g/dl (31.0-36.0); MEAN CORPUSCULAR VOLUME 90 fL (80-96); MONOCYTES # (AUTO) 1.5 /CMM (0.1-1.30); MONOCYTES % (AUTO) 14.7 % (2.0-12.0); NEUTROPHILS # (AUTO) 5.4 /CMM (1.8-8.9); PLATELET COUNT (AUTO) 310 /CMM (150-450); RED BLOOD CELL COUNT(AUTO) 3.65 MIL/uL (4.5-6.0); WHITE BLOOD COUNT (AUTO) 10.4 K/uL (4.3-11.0)
[2019-09-15] MEDS: HEPARIN SODIUM, PORCINE 5000 UNITS/1 ML VIAL SQ SCH ×2 (09:00→20:24)
[2019-09-15] MEDS: BICALUTAMIDE 50 MG TABLET GT SCH (11:05)
[2019-09-15] MEDS: CHLORHEXIDINE GLUCONATE 15 ML UDC MM SCH ×2 (11:09→17:25)
[2019-09-15] MEDS: ZINC SULFATE 220 MG CAPSULE GT SCH (11:10)
[2019-09-15] MEDS: CALCIUM CARB 250MG /VITAMIN D 1 UDTAB GT SCH (11:10)
[2019-09-15] MEDS: ASCORBIC ACID 500 MG TABLET GT SCH (11:10)
[2019-09-15] MEDS: PANTOPRAZOLE 40 MG VIAL IV SCH (11:10)
[2019-09-15] MEDS ORDERED: DIATR MEGLU/DIATRIZOATE SODIUM 30 ML BOTTLE (GASTROGRAPHIN) ONE (11:10)
[2019-09-15] MEDS: LACTOBACILLUS RHAMNOSUS GG 1 EACH CAP.SPRINK GT SCH ×2 (11:10→17:25)
[2019-09-15] MEDS: MULTIVITAMINS,THERAGRAN 1 UDTAB TABLET GT SCH (11:11)
[2019-09-15] MEDS: Magnesium 1GM/D5W 100ML PREMIX 100 ML IV SCH ×2 (11:27→12:43)
[2019-09-15] MEDS ORDERED: POTASSIUM CL. PREMIX PERIPHER. 50 ML IV SCH (11:30)
[2019-09-15] MEDS: HYDROGEL DRESSING 90 GM TUBE TP SCH (11:37)
[2019-09-15] MEDS: LINEZOLID 600 MG TABLET PO SCH ×2 (11:38→21:30)
[2019-09-15 12:00] VITALS: BP 114/80
[2019-09-15] MEDS: IV D5W 1,000 ML IV PRN (12:43)
[2019-09-15] MEDS: VALPROATE 500 MG in IV D5W 100 ML IV SCH ×3 (13:00→20:31)
--- NOTE | 2019-09-15 13:00 | NUR ---
LATEX CASTER NOTES PT IN BED, SEEN AND EXAMINED BY DR. COLLINS, PER MD BRIDGES TO USE GT FOR MEDS FOR NOW, WILL CONTINUE TO MONITOR, TURNED AND REPOSITIONED Q2 HOURS.
[2019-09-15 16:00] VITALS: BP 123/73
--- NOTE | 2019-09-15 18:33 | NUR ---
AUTOMOTIVE POWER ELECTRONICS ENGINEER NOTES PT IN BED, RESTING, NO SIGN OF PAIN OR DISTRESS, PM MEDS GIVEN VIA GT TUBE, NO LEAKING NOTED, PM CARE PROVIDED, KEPT WARM AND COMFORTABLE IN BED.
[2019-09-15] MEDS: CEFTRIAXONE 1 G in IV D5W 50 ML IV SCH (19:09)
--- NOTE | 2019-09-15 19:46 | NUR ---
TELE/RN OPENING NOTES RECEIVED PATIENT IN BED, HOB, OBTUNDED, ON MECHANICAL VENT WITH PRESCRIBED SETTING, SUCTION NEEDED, WITH BLOOD IN PARK OBSERVEDM BILATERAL CONTRACTURE AND IMMOBILE. TO HOLD GTUBE FEEDING AT THIS TIME AND F/U JANET AM ON D5 WATER RUNNING 100ML/HR, WOUNDS IN LEFT HEEL WITH PLAN FOR PROCEDURE JANET, CONSENT TO F/U. RECEIVED ENDORSEMENT FROM AM RN FOR LIZETH/ PICC LINE ON RIGHT THIGH, .PER AM RN HELD HEPARIN THIS AM TO MONITOR.
[2019-09-15 20:00] VITALS: BP 112/71
[2019-09-15 20:34] VITALS: BP 112/71
[2019-09-15] MEDS: TAMSULOSIN 0.4 MG CAP.SR.24H GT SCH (21:30)
[2019-09-16] MEDS: IV D5W 1,000 ML IV PRN ×2 (03:31→17:46)
[2019-09-16 04:00] VITALS: BP 125/70
[2019-09-16] MEDS: VALPROATE 500 MG in IV D5W 100 ML IV SCH ×3 (04:02→20:59)
[2019-09-16 04:09] VITALS: BP 125/70
[2019-09-16] MEDS: BLOOD SUGAR DIAGNOSTIC 1 EACH STRIP IN SCH ×4 (05:28→23:08)
--- NOTE | 2019-09-16 06:00 | NUR ---
TELE/RN CLOSING NOTES PATIENT IN BED, HOB ELECATED,OBTUNDED, NON VERBAL, EXTENSIVE ASSISTANCE NEEDED PATIENT IS BED BOUND, VEGETATIVE, ON MECHANICAL VENT WITH PRESCRIBED SETTING, SUCTION NEEDED, OBSERVED BLOOD IN IN URINE AND STOOL. RIGHT FEMORAL PICC LINE PATENT IN ONE LUMEN, PARK DRAINING URINE WITH REDDISH LIGHT TINGED. WILL ENDORSE TO AM RN FOR LIZETH.
--- NOTE | 2019-09-16 07:30 | NUR ---
PHARMACY CONSULTANT NOTES PT IN BED, RESTING, NO SIGN OF PAIN OR DISTRESS, IV FLUIDS INFUSING WELL, TURNED AND REPOSITIONED Q2 HOURS, KEPT CLAY SHOP SUPERVISOR BED.
[2019-09-16 07:33] LABS: BILIRUBIN,TOTAL 0.3 mg/dL (0.2-1.0); CALCIUM, SERUM 8.4 mg/dL (8.5-10.1); CREATININE 1.4 mg/dL (0.6-1.3); MAGNESIUM 1.8 mg/dL (1.8-2.4); PHOSPHORUS 3.3 mg/dL (2.5-4.9); POTASSIUM 3.5 mmol/L (3.5-5.1); TOTAL PROTEIN, SERUM 7.7 g/dL (6.4-8.2)
[2019-09-16 07:42] LABS: ALBUMIN 1.3 g/dL (3.4-5.0)
[2019-09-16 08:00] VITALS: BP 127/78
[2019-09-16] MEDS: HEPARIN SODIUM, PORCINE 5000 UNITS/1 ML VIAL SQ SCH ×2 (09:00→20:59)
[2019-09-16] MEDS: CHLORHEXIDINE GLUCONATE 15 ML UDC MM SCH ×2 (10:28→17:07)
[2019-09-16] MEDS: PANTOPRAZOLE 40 MG VIAL IV SCH (10:30)
[2019-09-16] MEDS: ZINC SULFATE 220 MG CAPSULE GT SCH (10:30)
[2019-09-16] MEDS: BICALUTAMIDE 50 MG TABLET GT SCH (10:30)
[2019-09-16] MEDS: MULTIVITAMINS,THERAGRAN 1 UDTAB TABLET GT SCH (10:30)
[2019-09-16] MEDS: CALCIUM CARB 250MG /VITAMIN D 1 UDTAB GT SCH (10:30)
[2019-09-16] MEDS: LACTOBACILLUS RHAMNOSUS GG 1 EACH CAP.SPRINK GT SCH ×2 (10:30→17:07)
[2019-09-16] MEDS: ASCORBIC ACID 500 MG TABLET GT SCH (10:30)
[2019-09-16] MEDS: LINEZOLID 600 MG TABLET PO SCH ×2 (10:34→20:59)
[2019-09-16 12:00] VITALS: BP 122/77
[2019-09-16] MEDS: GLUCERNA 1.2 1,000 ML BOTTLE NG PRN (12:28)
--- NOTE | 2019-09-16 13:00 | NUR ---
EVENT OPERATIONS MANAGER NOTES PT SEEN AND EXAMINED BY DR. COLLINS, ORDERED TO RESTART TUBE FEEDING, NOTED AND CARRIED OUT.
[2019-09-16] MEDS: HYDROGEL DRESSING 90 GM TUBE TP SCH (13:11)
--- NOTE | 2019-09-16 14:53 | NUR ---
CUTTING TOOL SHARPENER NOTES TELEPHONE CONSENT GIVEN BY PT'S DAUGHTER ADALBERTO MAIN FOR SERIAL EXCISIONAL DEBRIDEMENT OF SACRAL AND POSTERIOR HEAD WOUND, CONSENT CO-SIGNED WITH A SECOND RN.
[2019-09-16 16:00] VITALS: BP 129/80
[2019-09-16] MEDS: CEFTRIAXONE 1 G in IV D5W 50 ML IV SCH (17:07)
[2019-09-16] MEDS: EPOETIN ALFA (4000 UNIT) 4,000 UNIT/ML VIAL SQ SCH (17:47)
--- NOTE | 2019-09-16 18:06 | NUR ---
INDEPENDENT CONTRACTOR NOTES PT IN BED, RESTING, NON VERBAL, NO SIGN OF PAIN OR DISTRESS, WOUND TREATMENTS AND DRESSING CHANGE DONE, TURNED AND REPOSITIONED Q2 HOURS, EPISODE OF BLOODY STOOL AND URINE PER GAS FITTER HELPER, MD INFORMED, NONE NOTED DURING THE SHIFT, GT FEEDING INFUSING WELL, NO RESIDUALS NOTED, DRESSING CHANGE DONE TO GT SITE, NO LEAKING AT THIS TIME, PM MEDS GIVEN, PM CARE PROVIDED, KEPT WARM AND COMFORTABLE IN BED.
[2019-09-16 20:00] VITALS: BP 120/80
[2019-09-16] MEDS: TAMSULOSIN 0.4 MG CAP.SR.24H GT SCH (21:39)
--- NOTE | 2019-09-16 23:21 | NUR ---
PT RCVD JUAN'D ON MECHANICAL VENT WITH CHARTED SETTINGS. SX DONE. PT TRACH IS PATENT AND SECURE. VENT ALARMS APPEAR TO BE FUNCTIONING PROPERLY. AMBU BAG AT BEDSIDE. VENT PLUGGED INTO RED OUTLET. NO SOB NOTED. Addendum: 09/16/19 at 2321 by LEROY VALLEJO RT Amended: Links added.
[2019-09-17] VITALS: BP 113/90
[2019-09-17 03:49] VITALS: BP 103/68
[2019-09-17] MEDS: VALPROATE 500 MG in IV D5W 100 ML IV SCH ×3 (05:23→21:17)
[2019-09-17] MEDS: BLOOD SUGAR DIAGNOSTIC 1 EACH STRIP IN SCH ×3 (06:00→17:56)
--- NOTE | 2019-09-17 06:28 | NUR ---
RESTAURANT GENERAL MANAGER NOTES PT OBTUNDED. WITH SAME VENT SETTINGS. NOT IN ANY DISTRESS. NO SOB NOTED. NO S/SX OF ANY PAIN OR DISCOMFORT AT THIS TIME. ON TELE ST @ 103 WITH IVF & GTF INFUSING WELL. AM CARE DONE. MONITORED ACCORDINGLY. CALL LIGHT WITHIN REACH. BED IN LOWEST POSITION. SR UP X 3 WITH BED ALARM ON FOR SAFETY. WILL ENDORSE TO NEXT SHIFT.
[2019-09-17 07:01] LABS: CALCIUM, SERUM 8.2 mg/dL (8.5-10.1); CREATININE 1.3 mg/dL (0.6-1.3); POTASSIUM 4.1 mmol/L (3.5-5.1)
[2019-09-17] MEDS: IV D5W 1,000 ML IV PRN (07:29)
[2019-09-17 08:00] VITALS: BP 112/74
--- NOTE | 2019-09-17 08:19 | NUR ---
Tele/RN Opening note Received patient in bed, able to response physical stimuli, respiratory even and unlabored, trach site clean, dry , skin is warm to touch. Kept low position of bed and elevated HOB. Call light within reach, will continue to monitor.
[2019-09-17] MEDS: CALCIUM CARB 250MG /VITAMIN D 1 UDTAB GT SCH (09:33)
[2019-09-17] MEDS: LACTOBACILLUS RHAMNOSUS GG 1 EACH CAP.SPRINK GT SCH ×2 (09:33→17:55)
[2019-09-17] MEDS: CHLORHEXIDINE GLUCONATE 15 ML UDC MM SCH ×2 (09:34→17:55)
[2019-09-17] MEDS: PANTOPRAZOLE 40 MG VIAL IV SCH (09:34)
[2019-09-17] MEDS: MULTIVITAMINS,THERAGRAN 1 UDTAB TABLET GT SCH (09:34)
[2019-09-17] MEDS: ASCORBIC ACID 500 MG TABLET GT SCH (09:34)
[2019-09-17] MEDS: ZINC SULFATE 220 MG CAPSULE GT SCH (09:34)
[2019-09-17] MEDS: HEPARIN SODIUM, PORCINE 5000 UNITS/1 ML VIAL SQ SCH ×2 (09:35→21:00)
[2019-09-17] MEDS: HYDROGEL DRESSING 90 GM TUBE TP SCH (09:37)
[2019-09-17] MEDS: BICALUTAMIDE 50 MG TABLET GT SCH (09:39)
[2019-09-17] MEDS: CHLORHEXIDINE GLUCONATE 4% 118 ML BOTTLE TP SCH (09:49)
[2019-09-17] MEDS: LINEZOLID 600 MG TABLET PO SCH ×2 (09:50→21:22)
--- NOTE | 2019-09-17 10:30 | NUR ---
Tele/RN Patient done sacral wound debridement by SCREWHEAD POLISHER/Yahaira, wound jama no s/s of complication. Will continue to monitor.
[2019-09-17] MEDS: IV D5/ 0.9% NACL 1,000 ML IV PRN (11:29)
--- NOTE | 2019-09-17 15:11 | NUR ---
RT RECEIVED PT [facility] PER MD ORDER. AUTOMOTIVE STARTER REPAIRER DONE. AMBU BAG AT HEAD OF BED. ALARMS ON AND FUNCTIONING PROPERLY. TRACH PATENT AND SECURE. AMBU BAG AT BEDSIDE. VENT PLUGGED INTO RED OUTLET. SUCTIONED AND MONITORED PRN. NO SOB OR SIGNS OF DISTRESS NOTED. WILL CONTINUE TO MONITOR FOR ANY CHANGES. Addendum: 09/17/19 at 1757 by BALTAZAR JOYCE RT Amended: Links added.
[2019-09-17 15:17] VITALS: BP 109/79
[2019-09-17 16:00] VITALS: BP 109/79
[2019-09-17] MEDS: CEFTRIAXONE 1 G in IV D5W 50 ML IV SCH (17:55)
--- NOTE | 2019-09-17 18:23 | NUR ---
Tele/RN Patient in bed comfortably, does no appears distress. Provided oral care, suction, wound dressing change, and reposition frequently. Intact IV site, no residual g-tube, kept low bed position, elevated HOB. Will continue to monitor.
--- NOTE | 2019-09-17 19:59 | NUR ---
APPARATUS ENGINEERING TECHNOLOGIST NOTES Patient received resting in bed, a/o x0. No signs of acute distress. Patient is on a vent. Locke catheter in place and nephrostomy. Central line located on right femoral running D5W. G tube has no residual, no redness present. Safety precautions in place with bed in lowest position, side rails up x2, bed in lowest position. Will continue to monitor.
[2019-09-17 20:00] VITALS: BP 116/79
--- NOTE | 2019-09-17 20:19 | NUR ---
PT RCVD JUAN'D ON MECHANICAL VENT WITH CHARTED SETTINGS. SX DONE. PT TRACH IS PATENT AND SECURE. VENT ALARMS APPEAR TO BE FUNCTIONING PROPERLY. AMBU BAG AT BEDSIDE. VENT PLUGGED INTO RED OUTLET. NO SOB NOTED. Addendum: 09/17/19 at 2020 by LEROY VALLEJO RT Amended: Links added.
[2019-09-17] MEDS: TAMSULOSIN 0.4 MG CAP.SR.24H GT SCH (21:18)
--- NOTE | 2019-09-17 21:50 | NUR ---
MS RN NOTES Patient nephrostomy bag present with blood tinged. Hgb 10.4 Hct 33 from this mornings labs. MD notified. Held heparin scheduled for 2100 per MD order.
[2019-09-18] VITALS (8 sets, daily range): BP systolic 106–143; BP diastolic 64–88
[2019-09-18] MEDS: BLOOD SUGAR DIAGNOSTIC 1 EACH STRIP IN SCH ×5 (00:18→23:32)
[2019-09-18] MEDS: GLUCERNA 1.2 1,000 ML BOTTLE NG PRN ×2 (00:40→21:23)
[2019-09-18] MEDS: IV D5/ 0.9% NACL 1,000 ML IV PRN ×2 (02:37→20:43)
[2019-09-18] MEDS: VALPROATE 500 MG in IV D5W 100 ML IV SCH ×3 (04:16→21:23)
--- NOTE | 2019-09-18 06:27 | NUR ---
MS RN CLOSING NOTES Patient is currently resting in bed a/o x 0, obtuned but opens eyes. On a vent, no signs of acute distress. Patient was suctioned when needed to. All equipment for suctioning ws changed. Patient on a holm with yellow clear urine. Neophrostomy noted and present. Patient on TPN. Central line located on right femoral running d5 ns @ 75 ml/hr. Patient was kept clean and dry throughout the night, all needs attended to. Safety precautions in place with bed in lowest position, breaks on, and call light within reach. Will endorse to oncoming shift about LIZETH.
[2019-09-18 06:29] LABS: BASOPHILS # (AUTO) 0.1 /CMM (0.0-0.2); BASOPHILS % (AUTO) 0.5 % (0.0-2.0); EOSINOPHILS % (AUTO) 2.3 % (0.0-6.0); HEMATOCRIT 30 % (39-51); HEMOGLOBIN 9.9 g/dL (13.5-17.5); LYMPHOCYTES # (AUTO) 3.6 /CMM (0.8-4.8); LYMPHOCYTES % (AUTO) 32.6 % (20.0-44.0); MEAN CORPUSCULAR HGB CONC 33 g/dl (31.0-36.0); MEAN CORPUSCULAR VOLUME 88 fL (80-96); MONOCYTES # (AUTO) 1.8 /CMM (0.1-1.30); MONOCYTES % (AUTO) 16.4 % (2.0-12.0); NEUTROPHILS # (AUTO) 5.3 /CMM (1.8-8.9); NEUTROPHILS % (AUTO) 48.2 % (43.0-81.0); PLATELET COUNT (AUTO) 354 /CMM (150-450); RED BLOOD CELL COUNT(AUTO) 3.41 MIL/uL (4.5-6.0)
[2019-09-18 06:51] LABS: CALCIUM, SERUM 8.4 mg/dL (8.5-10.1); CREATININE 1.2 mg/dL (0.6-1.3); MAGNESIUM 1.5 mg/dL (1.8-2.4); PHOSPHORUS 3.2 mg/dL (2.5-4.9); POTASSIUM 3.6 mmol/L (3.5-5.1)
--- NOTE | 2019-09-18 07:21 | NUR ---
INVERTEBRATE PALEONTOLOGIST NOTES RECEIVED PT IN BED WITH EYES OPEN IN NO ACUTE SIGNS OF DISTRESS. HOB ELEVATED. PT IS OBTUNDED AND DEPENDENT ON MECHANICAL VENT AT PRESCRIBED SETTINGS, TOLERATING SETTINGS WELL WITH NO ACUTE RESPIRATORY DISTRESS NOTED. ON TELE MONITORING WITH CURRENT READING OF ST WITH HR OF 106. RIGHT FEMORAL CENTRAL LINE DOUBLE LUMEN IN PLACE WITH IVF OF D5NS INFUSING AT 75ML/HR. PT WITH G-TUBE INTACT AND PATENT, GTF OF GLUCERNA 1.2 @ 40 ML/HR IN PROGRESS, TOLERATING WELL. ASPIRATION PRECAUTIONS MAINTAINED. F/C IN PLACE AND DRAINING CLEAR YELLOW URINE OUTPUT. NEPHROSTOMY IN PLACE WITH NO OUTPUT NOTED AT THIS TIME. SAFETY MEASURES IN PLACE: BED IN LOWEST LOCKED POSITION WITH SIDE RAILS UP X3. CALL LIGHT WITHIN REACH. WILL CONTINUE TO MONITOR.
[2019-09-18] MEDS: LACTOBACILLUS RHAMNOSUS GG 1 EACH CAP.SPRINK GT SCH ×2 (08:52→16:56)
[2019-09-18] MEDS: BICALUTAMIDE 50 MG TABLET GT SCH (08:52)
[2019-09-18] MEDS: PANTOPRAZOLE 40 MG VIAL IV SCH (08:53)
[2019-09-18] MEDS: MULTIVITAMINS,THERAGRAN 1 UDTAB TABLET GT SCH (08:53)
[2019-09-18] MEDS: ASCORBIC ACID 500 MG TABLET GT SCH (08:53)
[2019-09-18] MEDS: ZINC SULFATE 220 MG CAPSULE GT SCH (08:53)
[2019-09-18] MEDS: CALCIUM CARB 250MG /VITAMIN D 1 UDTAB GT SCH (08:53)
[2019-09-18] MEDS: CHLORHEXIDINE GLUCONATE 15 ML UDC MM SCH ×2 (08:54→16:56)
[2019-09-18] MEDS: LINEZOLID 600 MG TABLET PO SCH ×2 (08:54→21:23)
[2019-09-18] MEDS: HEPARIN SODIUM, PORCINE 5000 UNITS/1 ML VIAL SQ SCH (08:55)
[2019-09-18] MEDS: HYDROGEL DRESSING 90 GM TUBE TP SCH (08:56)
[2019-09-18] MEDS: Magnesium 1GM/D5W 100ML PREMIX 100 ML IV SCH ×2 (10:27→11:38)
--- NOTE | 2019-09-18 11:03 | NUR ---
RN NOTES PT SEEN BY TERESA COLLINS WITH ORDER TO INCREASE GTF OF GLUCERNA 1.2 FROM 40ML/HR TO 70ML/HR. ASPIRATION PRECAUTIONS MAINTAINED. ORDER CARRIED OUT. WILL CONTINUE TO MONITOR
[2019-09-18] MEDS: EPOETIN ALFA (4000 UNIT) 4,000 UNIT/ML VIAL SQ SCH (16:57)
[2019-09-18] MEDS: CEFTRIAXONE 1 G in IV D5W 50 ML IV SCH (17:44)
--- NOTE | 2019-09-18 18:44 | NUR ---
HEAD STOCK TRANSFER CLERK CLOSING NOTES PT IN BED LYING AT SEMI-MORRIS'S POSITION. OBTUNDED, OPEN HIS EYES AND RESPONSIVE TO PAINFUL STIMULI. DEPENDENT ON MECHANICAL VENT AT PRESCRIBED SETTINGS, TOLERATING SETTINGS WELL WITH NO ACUTE RESPIRATORY DISTRESS NOTED. ON TELE MONITORING WITH CURRENT READING OF SR WITH HR ON THE 90'S. RIGHT FEMORAL PICC LINE DOUBLE LUMEN IN PLACE WITH IVF OF D5NS INFUSING AT 75ML/HR. G-TUBE INTACT AND PATENT, GTF OF GLUCERNA 1.2 @ 70 ML/HR IN PROGRESS, TOLERATING WELL. ASPIRATION PRECAUTIONS MAINTAINED. F/C IN PLACE AND DRAINING CLEAR YELLOW URINE OUTPUT, PARK CARE DONE. NEPHROSTOMY IN PLACE AND FUNCTIONING WITH CLEAR YELLOW URINE OUTPUT NOTED. PT TURNED AND REPOSITIONED Q 2HRS AND PRN,. KEPT CLEAN, DRY AND COMFORTABLE AT ALL TIMES. SAFETY MEASURES IN PLACE: BED IN LOWEST LOCKED POSITION WITH SIDE RAILS UP X3. CALL LIGHT WITHIN REACH. WILL ENDORSE TO TICKET DISPENSER CHANGER NURSE FOR LIZETH.
--- NOTE | 2019-09-18 19:12 | NUR ---
DRAFTER MARINE OPENING NOTES Patient received resting in bed in semi fowlers position, obtunded and able to open eyes. Patient dependant on mechanical vent at prescribed settings, no distress noted. Tele reading HR in the 90-100's. Right femoral piccline in place running D5 NS. Locke catheter and nephrostomy bag noted. G-tube intact running Glucerna @ 70 ml/hr. Aspiration and safety precautions in place with bed in lowest position, breaks on, side rails up x2. Will continue to monitor.
[2019-09-18] MEDS: TAMSULOSIN 0.4 MG CAP.SR.24H GT SCH (21:24)
--- NOTE | 2019-09-18 21:52 | NUR ---
RT NOTE PT RECEIVED TRACHED ON MECHANICAL VENTILATION. AMBU BAG/BACK UP TRACH @ BEDSIDE. SX DONE, TRACH SECURED AND PATENT. ALARMS ON AND AUDIBLE. CONT. PULSE OX CONNECTED. NO SOB NOTED AT THIS TIME. WILL MONITOR T/O SHIFT. Addendum: 09/18/19 at 2154 by AIDEE THOMPSON RT Amended: Links added.
[2019-09-19] VITALS (7 sets, daily range): BP systolic 112–132; BP diastolic 62–86
[2019-09-19] MEDS: VALPROATE 500 MG in IV D5W 100 ML IV SCH ×3 (05:27→21:41)
[2019-09-19] MEDS: BLOOD SUGAR DIAGNOSTIC 1 EACH STRIP IN SCH ×3 (05:46→17:45)
--- NOTE | 2019-09-19 06:27 | NUR ---
MS RN CLOSING NOTES Patient is currently resting in bed a/o x0, obtuned, able to open eyes. Patient is trached on mechanical ventilation at prescribed setting. No SOB noted at this time. Patient was suctioned as needed. Continuous pulse ox connected. Tele monitoring, currently reading SR with HR in 90's. Right femoral picc line in place running D5NS @ 75 ml/hr. G-tube in place running Glucerna @ 70 ml/hr. Locke catheter is in place and drained clear yellow urine. Nephrostomy is in place with clear yellow output. Patient turned and repositioned Q2h. Kept clean and dry throughout the night. Safety precautions in place with bed in lowest position, side rails up x2. Will endorse to oncoming shift about LIZETH.
[2019-09-19 07:35] LABS: BASOPHILS # (AUTO) 0.1 /CMM (0.0-0.2); BASOPHILS % (AUTO) 0.5 % (0.0-2.0); CALCIUM, SERUM 8.5 mg/dL (8.5-10.1); CREATININE 1.2 mg/dL (0.6-1.3); EOSINOPHILS % (AUTO) 1.5 % (0.0-6.0); HEMATOCRIT 29 % (39-51); HEMOGLOBIN 9.4 g/dL (13.5-17.5); LYMPHOCYTES # (AUTO) 4.5 /CMM (0.8-4.8); LYMPHOCYTES % (AUTO) 29.2 % (20.0-44.0); MAGNESIUM 2.2 mg/dL (1.8-2.4); MEAN CORPUSCULAR HGB CONC 32 g/dl (31.0-36.0); MEAN CORPUSCULAR VOLUME 89 fL (80-96); MONOCYTES # (AUTO) 2.3 /CMM (0.1-1.30); MONOCYTES % (AUTO) 15.2 % (2.0-12.0); NEUTROPHILS # (AUTO) 8.2 /CMM (1.8-8.9); NEUTROPHILS % (AUTO) 53.6 % (43.0-81.0); PHOSPHORUS 2.9 mg/dL (2.5-4.9); PLATELET COUNT (AUTO) 359 /CMM (150-450); POTASSIUM 3.9 mmol/L (3.5-5.1); RED BLOOD CELL COUNT(AUTO) 3.29 MIL/uL (4.5-6.0); WHITE BLOOD COUNT (AUTO) 15.3 K/uL (4.3-11.0)
[2019-09-19] MEDS: ASCORBIC ACID 500 MG TABLET GT SCH (08:55)
[2019-09-19] MEDS: CHLORHEXIDINE GLUCONATE 15 ML UDC MM SCH ×2 (08:55→17:32)
[2019-09-19] MEDS: LINEZOLID 600 MG TABLET PO SCH ×2 (08:55→21:41)
[2019-09-19] MEDS: PANTOPRAZOLE 40 MG VIAL IV SCH (08:55)
[2019-09-19] MEDS: LACTOBACILLUS RHAMNOSUS GG 1 EACH CAP.SPRINK GT SCH ×2 (08:55→17:32)
[2019-09-19] MEDS: ZINC SULFATE 220 MG CAPSULE GT SCH (08:55)
[2019-09-19] MEDS: MULTIVITAMINS,THERAGRAN 1 UDTAB TABLET GT SCH (08:55)
[2019-09-19] MEDS: CALCIUM CARB 250MG /VITAMIN D 1 UDTAB GT SCH (08:55)
[2019-09-19] MEDS: BICALUTAMIDE 50 MG TABLET GT SCH (08:56)
--- NOTE | 2019-09-19 10:00 | NUR ---
would care provided as ordered.
[2019-09-19 10:01] LABS: BAND % (MANUAL) 2 % (0.0-5.0); EOSINOPHILS % (MANUAL) 1 % (0-4); LYMPHOCYTES % (MANUAL) 30 % (16-48); MONOCYTES % (MANUAL) 15 % (0-11.0); NEUTROPHILS % (MANUAL) 52 (42-76)
--- NOTE | 2019-09-19 10:08 | NUR ---
Skin care and wound care p provided as ordered.
[2019-09-19] MEDS: HYDROGEL DRESSING 90 GM TUBE TP SCH (12:48)
[2019-09-19] MEDS: IV D5/ 0.9% NACL 1,000 ML IV PRN (13:04)
[2019-09-19] MEDS: GLUCERNA 1.2 1,000 ML BOTTLE NG PRN (16:15)
--- NOTE | 2019-09-19 17:10 | NUR ---
RT NOTE: PATIENT RECEIVED TRACHED ON MECHANICAL VENT. ALARMS VERIFIED AND AUDIBLE. SUCTIONED AND LAVAGED MODERATE-LARGE AMOUNTS OF THICK YELLOW SECRETIONS THROUGHOUT THE DAY. VENT PLUGGED INTO RED OUTLET. AMBU BAG AT [facility].
[2019-09-19] MEDS: PROSOURCE / PROSTAT (PYXIS) 30 ML UDC GT SCH (17:32)
--- NOTE | 2019-09-19 18:50 | NUR ---
Patient in bed, obtunded and opens eyes. No signs of acute distress , vent depended. Patient suctioned as needed. Patient has a holm cath with yellow clear urine. Left side nephrostomy bag present. PICC line on right femoral running d5 ns @ 75 ml/hr.Patient on G-tube feeding at 70 ml/hr with residual 10 ml. Patient was kept clean and dry throughout the shift, all needs attended . Safety precautions in place with bed in lowest position, and call light within reach. Will endorse to next shift about LIZETH.
--- NOTE | 2019-09-19 19:25 | NUR ---
RN OPEN NOTES RECEIVED PATIENT RESTING COMFORTABLY IN BED, AROUSABLE TO STIMULI. OBTUNDED. NO SIGNS OF DISTRESS OR DISCOMFORT. BREATHING EVEN AND UNLABORED. [facility] WITH SETTINGS ORDERED. ON TELE MONITORING WITH ST 105 NOTED. HAS R FEMORAL PICC WITH D5NS INFUSING, PATENT AND INTACT, NO SIGNS OF REDNESS OR INFILTRATION. HAS G-TUBE INTACT, WITH FEEDING RUNNING. TOLERATING WELL WITH APPROX 10ML RESIDUAL NOTED. HAS F/C INTACT DRAINING CLEAR YELLOW FLUID. HAS R NEPHROSTOMY INTACT, DRAINING CLEAR YELLOW FLUID. BED IN LOW LOCKED POSITION WITH SIDE RAILS X2. HOB ELEVATED. CALL LIGHT WITHIN REACH. WILL CONTINUE TO MONITOR.
[2019-09-19] MEDS: TAMSULOSIN 0.4 MG CAP.SR.24H GT SCH (21:41)
[2019-09-20] VITALS: BP 130/79
[2019-09-20] MEDS: BLOOD SUGAR DIAGNOSTIC 1 EACH STRIP IN SCH ×4 (00:26→16:35)
[2019-09-20] MEDS: INSULIN REGULAR, HUMAN 100 UNIT/ML 3 ML VIAL SQ PRN ×2 (00:27→06:12)
[2019-09-20 04:00] VITALS: BP 130/84
[2019-09-20] MEDS: VALPROATE 500 MG in IV D5W 100 ML IV SCH (05:57)
[2019-09-20] MEDS: IV D5/ 0.9% NACL 1,000 ML IV PRN (06:03)
[2019-09-20 07:14] LABS: BASOPHILS # (AUTO) 0.1 /CMM (0.0-0.2); BASOPHILS % (AUTO) 0.3 % (0.0-2.0); EOSINOPHILS % (AUTO) 1.8 % (0.0-6.0); HEMATOCRIT 30 % (39-51); HEMOGLOBIN 9.5 g/dL (13.5-17.5); LYMPHOCYTES # (AUTO) 3.5 /CMM (0.8-4.8); LYMPHOCYTES % (AUTO) 22.8 % (20.0-44.0); MEAN CORPUSCULAR HGB CONC 32 g/dl (31.0-36.0); MEAN CORPUSCULAR VOLUME 90 fL (80-96); MONOCYTES % (AUTO) 13.5 % (2.0-12.0); NEUTROPHILS # (AUTO) 9.4 /CMM (1.8-8.9); NEUTROPHILS % (AUTO) 61.6 % (43.0-81.0); PLATELET COUNT (AUTO) 375 /CMM (150-450); RED BLOOD CELL COUNT(AUTO) 3.36 MIL/uL (4.5-6.0); WHITE BLOOD COUNT (AUTO) 15.2 K/uL (4.3-11.0)
--- NOTE | 2019-09-20 07:38 | NUR ---
RN CLOSING NOTES PATIENT RESTING COMFORTABLY IN BED, AROUSABLE TO STIMULI. OBTUNDED. NO SIGNS OF DISTRESS OR DISCOMFORT. BREATHING EVEN AND UNLABORED. [facility] ORDERED. ON TELE MONITORING WITH ST 103 NOTED. HAS R FEMORAL PICC WITH D5NS INFUSING, PATENT AND INTACT, NO SIGNS OF REDNESS OR INFILTRATION. HAS G-TUBE INTACT, WITH FEEDING RUNNING. TOLERATING WELL WITH APPROX 10ML RESIDUAL NOTED THROUGHOUT SHIFT. HAS F/C INTACT DRAINING CLEAR YELLOW FLUID. HAS R NEPHROSTOMY INTACT, DRAINING CLEAR YELLOW FLUID. ALL NEEDS MET. NO SIGNIFICANT CHANGES THROUGH THE NIGHT. PATIENT REPOSITIONED Q2H AND PRN. BED IN LOW LOCKED POSITION WITH SIDE RAILS X2. HOB ELEVATED. CALL LIGHT WITHIN REACH. ENDORSED TO AM SHIFT FOR LIZETH.
[2019-09-20 07:46] LABS: CALCIUM, SERUM 8.6 mg/dL (8.5-10.1); CREATININE 1.2 mg/dL (0.6-1.3); MAGNESIUM 1.6 mg/dL (1.8-2.4); PHOSPHORUS 2.6 mg/dL (2.5-4.9); POTASSIUM 4.2 mmol/L (3.5-5.1)
--- NOTE | 2019-09-20 08:00 | NUR ---
press and blow machine tender opening notes Received pt in bed. Pt is non verbal. requires total assistance with ADLs. Locke cath in plcae, patent and draining with clear, yellow urine. R nephrostomy tube noted. draining with clear yellow urine as well. PICC line noted on R femoral. Dressing intact. no s/s of swelling, infiltration or infection noted. Gtube in place, patent, placement checked, no gastric residual noted. Pt dependent on vent and trach. NO cardiac or respiratory distress noted, seasonal greenery bundler in place. with NSR.
[2019-09-20] MEDS: PROSOURCE / PROSTAT (PYXIS) 30 ML UDC GT SCH (08:26)
[2019-09-20] MEDS: ASCORBIC ACID 500 MG TABLET GT SCH (08:26)
[2019-09-20] MEDS: PANTOPRAZOLE 40 MG VIAL IV SCH (08:26)
[2019-09-20] MEDS: CALCIUM CARB 250MG /VITAMIN D 1 UDTAB GT SCH (08:27)
[2019-09-20] MEDS: LACTOBACILLUS RHAMNOSUS GG 1 EACH CAP.SPRINK GT SCH ×2 (08:27→16:27)
[2019-09-20] MEDS: BICALUTAMIDE 50 MG TABLET GT SCH (08:27)
[2019-09-20] MEDS: ZINC SULFATE 220 MG CAPSULE GT SCH (08:27)
[2019-09-20] MEDS: LINEZOLID 600 MG TABLET PO SCH ×2 (08:27→21:46)
[2019-09-20] MEDS: MULTIVITAMINS,THERAGRAN 1 UDTAB TABLET GT SCH (08:27)
[2019-09-20] MEDS: CHLORHEXIDINE GLUCONATE 15 ML UDC MM SCH ×2 (08:27→16:27)
[2019-09-20 08:38] VITALS: BP 119/99
[2019-09-20] MEDS: HYDROGEL DRESSING 90 GM TUBE TP SCH (10:32)
[2019-09-20] MEDS: Magnesium 1GM/D5W 100ML PREMIX 100 ML IV SCH ×2 (10:32→11:56)
[2019-09-20] MEDS: GLUCERNA 1.2 1,000 ML BOTTLE NG PRN (10:50)
--- NOTE | 2019-09-20 12:00 | NUR ---
RN NOTES PATIENT WILL DISCHARGE BACK TO THE SNF.
[2019-09-20] MEDS ORDERED: Linezolid PO (12:21)
[2019-09-20] MEDS: VALPROIC ACID 250 MG/5 ML UDC GT SCH ×2 (13:12→21:46)
--- NOTE | 2019-09-20 13:17 | NUR ---
Due medication given. tolerated well. IV fluid running d5NS @ 75cc/hr. Pt is stable condition
--- NOTE | 2019-09-20 17:45 | NUR ---
RN NOTES GT DISLODGED, PUT IT BACK , HOSPITALIST NOTIFIED GET TO ORDER KUB GT PLACEMENT STAT. ORDER TAKEN AND CARRIED OUT.
[2019-09-20] MEDS ORDERED: DIATR MEGLU/DIATRIZOATE SODIUM 30 ML BOTTLE (GASTROGRAPHIN) ONE ×2 (17:49→18:04)
[2019-09-20] MEDS ORDERED: DIATR MEGLU/DIATRIZOATE SODIUM 30 ML BOTTLE (GASTROGRAPHIN) PO ONE (18:00)
--- NOTE | 2019-09-20 18:00 | NUR ---
KUB done KUB done for gtube placement. HOB elevated. Aspiration precautions. D5 1/2 NS running at 75cc/hr on R femoral PICC line. Locke cath and R nephrostomy tube in place, and patent, draining with clear yellow urine. Turned and repositioned pt. Awaiting KUB results at this time.
--- NOTE | 2019-09-20 19:25 | NUR ---
BANANA CARRIER OPENING NOTES RECEIVED PATIENT FROM MORNING SHIFT, OBTUNDED WITH EYES OPEN. BREATHING REGULAR AND UNLABORED ON MECHANICAL VENTILATION. TRACH INTACT AND PATENT. RIGHT FEMORAL PICC LINE INTACT AND PATENT, INFUSING WELL WITH NO BLEEDING OR S/S OF INFILTRATION/INFECTION NOTED. TO REMOVE PRIOR TO DISCHARGE. GTUBE INTACT, AWAITING KUB RESULT TO CONFIRM PLACEMENT. NEPHROSTOMY TUBE INTACT WITH CLEAR YELLOW OUTPUT IN MODERATE AMOUNT. PARK CATH INTACT DRAINING CLEAR YELLOW URINE MODERATE AMOUNT. NO S/S OF PAIN/DISCOMFORT SEEN OF THE TIME. BED LOW AND LOCKED ON SEMI FOWLERS POSITION. CALL LIGHT IN REACH. WILL CONTINUE TO MONITOR.
[2019-09-20 20:00] VITALS: BP 144/81
--- NOTE | 2019-09-20 20:30 | NUR ---
RETAIL SALESWORKER NOTES RECEIVED AND RELAYED KUB RESULT TO , CONFIRMING GTUBE PLACEMENT AND PATENCY. TO RESUME GTUBE FEEDING. WILL CONTINUE TO MONITOR.
[2019-09-20 20:50] VITALS: BP 144/81
[2019-09-20] MEDS: TAMSULOSIN 0.4 MG CAP.SR.24H GT SCH (21:46)
[2019-09-21] MEDS: BLOOD SUGAR DIAGNOSTIC 1 EACH STRIP IN SCH (00:09)
--- NOTE | 2019-09-21 00:40 | NUR ---
AFTERSCHOOLDIRECTOR DATABASE NOTES PATIENT PICKED-UP VIA GURNEY BY [facility] WITH 2EMT'S AND RT. PATIENT REMAINED OBTUNDED WITH EYES OPEN. TRACH INTACT AND PATENT ON MECHANICAL VENTILATION. GTUBE INTACT WITH NO RESIDUAL ASPIRATED. NEPHROSTOMY TUBE INTACT WITH 100CC CLEAR YELLOW OUTPUT. PARK CATH INTACT DRAINING CLEAR YELLOW URINE WITH SCANT AMOUNT ON URINARY BAG. FISHER DIVER NET REMOVED; PICC LINE REMOVED WITH NO ACTIVE BLEEDING NOTED. CATHETER TIP SAVED FOR CULTURE. NO BELONGINGS NOTED. DISCHARGE PACKET GIVEN TO EMT, REPORT CALLED BY MORNING SHIFT WITH COREY MARTIN FROM [facility].
== END 2019-09-21 00:42 | DRG 720 ==
LOC: ER 13:45 → ICU 17:23 → TELE 09-12 15:31
PROVIDERS: ADMIT Nurse Practitioner Acute Care; ATTEND Nurse Practitioner Acute Care
PROC: 5A1955Z Respiratory Ventilation, Greater than 96 Consecutive Hours (ICD-10-PCS; 2019-09-11)
PROC: 30233N1 Transfusion of Nonautologous Red Blood Cells into Peripheral Vein, Percutaneous Approach (ICD-10-PCS; principal; 2019-09-12)
PROC: 0JB70ZZ Excision of Back Subcutaneous Tissue and Fascia, Open Approach (ICD-10-PCS; 2019-09-17)
PROC: 0JB00ZZ Excision of Scalp Subcutaneous Tissue and Fascia, Open Approach (ICD-10-PCS; 2019-09-17)
DX: A41.81 Sepsis due to Enterococcus (principal); N17.0 Acute kidney failure with tubular necrosis; J96.21 Acute and chronic respiratory failure with hypoxia; R65.21 Severe sepsis with septic shock; E43 Unspecified severe protein-calorie malnutrition; J18.9 Pneumonia, unspecified organism; Z99.11 Dependence on respirator [ventilator] status; G93.40 Encephalopathy, unspecified; G93.41 Metabolic encephalopathy; R53.2 Functional quadriplegia; K92.2 Gastrointestinal hemorrhage, unspecified; D68.59 Other primary thrombophilia; N39.0 Urinary tract infection, site not specified; E11.22 Type 2 diabetes mellitus with diabetic chronic kidney disease; E11.51 Type 2 diabetes mellitus with diabetic peripheral angiopathy without gangrene; F09 Unspecified mental disorder due to known physiological condition; G40.909 Epilepsy, unspecified, not intractable, without status epilepticus; I25.10 Atherosclerotic heart disease of native coronary artery without angina pectoris; K21.9 Gastro-esophageal reflux disease without esophagitis; L97.429 Non-pressure chronic ulcer of left heel and midfoot with unspecified severity; N13.6 Pyonephrosis; N40.0 Benign prostatic hyperplasia without lower urinary tract symptoms; R13.10 Dysphagia, unspecified; Z79.4 Long term (current) use of insulin; Z74.01 Bed confinement status; Z85.46 Personal history of malignant neoplasm of prostate; Z79.51 Long term (current) use of inhaled steroids; I12.9 Hypertensive chronic kidney disease with stage 1 through stage 4 chronic kidney disease, or unspecified chronic kidney disease; E87.0 Hyperosmolality and hypernatremia; N18.9 Chronic kidney disease, unspecified; K94.23 Gastrostomy malfunction; Z79.899 Other long term (current) drug therapy; E11.621 Type 2 diabetes mellitus with foot ulcer; D64.9 Anemia, unspecified; C79.9 Secondary malignant neoplasm of unspecified site; Z87.01 Personal history of pneumonia (recurrent); Z87.440 Personal history of urinary (tract) infections; Z90.5 Acquired absence of kidney; C61 Malignant neoplasm of prostate; C78.00 Secondary malignant neoplasm of unspecified lung; C78.7 Secondary malignant neoplasm of liver and intrahepatic bile duct; C79.51 Secondary malignant neoplasm of bone; B96.4 Proteus (mirabilis) (morganii) as the cause of diseases classified elsewhere
CPT/HCPCS: 31720; 36415; 71045-TC; 74018; 80048-TC; 80053-TC; 80076-TC; 80202-TC; 81000-TC; 82272-TC; 82533; 82962-TC; 83605-TC; 83735-TC; 84100-TC; 84484-TC; 85025-TC; 85730-TC; 86850-TC; 86921-TC; 87040-TC; 87070-TC; 87081-TC; 87086-TC; 87186-TC; 94002-TC; 94003-TC; 94760-TC; 94762-TC; 94799-TC; 99082-TC; A4216; A6248; A6253; A6403; A7526; C9113; G0378; J0696; J0885; J1644; J1815; J2185; J2543; J3370; J3475; J3480; J3490; J7030; J7040; J7042; J7050; J7060; J7070; P9016-BL; P9047; Q9963

== ENCOUNTER 2019-09-27 17:28 | Inpatient (IN) | payer MEDICAID ==
[~2019-09-27] VITALS: Ht 172.7 cm; Wt 78.9 kg
[~2019-09-27 17:28] MED LIST changes: -ALBU2.5V38 IH; -AMIN30LI2 GT; +FAMO20TA8 GT; -IPRA0.2S9 IH; +IPRA3AMP23 IH; +Linezolid PO; -MERO1VIA IV; -NUT.237L30; +NUT.237L31 GT; -RANI-655 GT
--- NOTE | 2019-09-27 17:34 | NUR ---
RT Pt brought into ER by paramedics trached and manually ventilated via BVM. Pt was placed on hospital ventilator with noted settings by paramedics. Vent alarms are set and audible with BVM by bedside. SUPERVISOR COOK ROOM cuff pressure noted. Vent is plugged into red outlet. No Respiratory distress noted. Addendum: 09/27/19 at 1811 by GABI JOY RT Amended: Links added.
--- NOTE | 2019-09-27 17:54 | NUR ---
PT REC'D TO ER VIA EMS AT THE [facility] PT DESAT O2 ON VENT WAS BAGING WHEM EMS ARRIVED ON VENT 100 %/ RT IN ROOM . PARK CATH INPLACE THICK WHITE URINE SENT TO LAB LAB AT BEDSIDE DRAWING BLOOD NEPHROSCTOMY RT SIDE . GTUBE INPLCE IV LEFT FA 22G . AWAITING EVALUATION BY ER PROVIDER.
[2019-09-27 17:59] LABS: BASOPHILS # (AUTO) 0.1 /CMM (0.0-0.2); BASOPHILS % (AUTO) 0.3 % (0.0-2.0); EOSINOPHILS % (AUTO) 0.8 % (0.0-6.0); HEMATOCRIT 25 % (39-51); LYMPHOCYTES # (AUTO) 2.7 /CMM (0.8-4.8); LYMPHOCYTES % (AUTO) 15.1 % (20.0-44.0); MEAN CORPUSCULAR HGB CONC 32 g/dl (31.0-36.0); MEAN CORPUSCULAR VOLUME 91 fL (80-96); MONOCYTES # (AUTO) 2.6 /CMM (0.1-1.30); MONOCYTES % (AUTO) 14.6 % (2.0-12.0); NEUTROPHILS # (AUTO) 12.5 /CMM (1.8-8.9); NEUTROPHILS % (AUTO) 69.2 % (43.0-81.0); PLATELET COUNT (AUTO) 284 /CMM (150-450); RED BLOOD CELL COUNT(AUTO) 2.76 MIL/uL (4.5-6.0)
[2019-09-27] MEDS ORDERED: CHLO473M5 MM (18:03)
[2019-09-27] MEDS ORDERED: AMIN30LI2 GT (18:03)
[2019-09-27] MEDS ORDERED: IPRA3AMP23 IH (18:03)
--- NOTE | 2019-09-27 18:06 | NUR ---
TIDAL VOLUME 500, PEAK 60, PEEP5
[2019-09-27 18:07] LABS: CALCIUM, SERUM 8.5 mg/dL (8.5-10.1); CARBON DIOXIDE 19 mmol/L (21-32); CHLORIDE 96 mmol/L (98-107); CREATININE 2.7 mg/dL (0.6-1.3); GLUCOSE 76 mg/dL (74-106); POTASSIUM 5.5 mmol/L (3.5-5.1); SODIUM SERUM 127 mmol/L (136-145); UREA NITROGEN, BLOOD 65 mg/dL (7-18)
[2019-09-27 18:20] LABS: ALANINE AMINOTRANSFERASE 7 U/L (12-78); ALKALINE PHOSPHATASE 438 U/L (46-116); ASPARTATE AMINOTRANSFERASE 36 U/L (15-37); B-TYPE NATRIURETIC PEPTIDE 3766 PG/ML (0-125); BILIRUBIN,DIRECT 0.4 mg/dL (0.0-0.2); BILIRUBIN,TOTAL 0.5 mg/dL (0.2-1.0); TOTAL PROTEIN, SERUM 8.3 g/dL (6.4-8.2)
[2019-09-27 18:26] LABS: ALBUMIN 1.2 g/dL (3.4-5.0)
[2019-09-27 18:58] LABS: APPEARANCE,URINE TURBID (CLEAR)
[2019-09-27 18:59] LABS: COLOR,URINE AMBER (YELLOW); PROTEIN,URINE 3+ mg/dl (NEGATIVE); UGLUCOSE NEGATIVE (NEGATIVE)
[2019-09-27 19:00] LABS: BILIRUBIN,URINE NEGATIVE (NEGATIVE); BLOOD, URINE 3+ Ery/uL (NEGATIVE); KETONES,URINE NEGATIVE (NEGATIVE); LEUKOCYTE ESTERASE ,URINE 3+ (NEGATIVE); NITRITE, URINE NEGATIVE (NEGATIVE); UROBILINOGEN,URINE 0.2 EU/dL (0.2)
[2019-09-27 19:01] LABS: BACTERIA,URINE Few /HPF (None Seen); RBC,URINE 21-50 /HPF (0-2); SQUAMOUS EPITHELIAL CELL,UR Rare /HPF (None Seen); WBC,URINE 51-80 /HPF (0-3)
[2019-09-27 19:25] LABS: BAND % (MANUAL) 7 % (0.0-5.0); EOSINOPHILS % (MANUAL) 1 % (0-4); LYMPHOCYTES % (MANUAL) 17 % (16-48); MONOCYTES % (MANUAL) 9 % (0-11.0); NEUTROPHILS % (MANUAL) 66 (42-76)
[2019-09-27] MEDS ORDERED: CEFTRIAXONE 1GM BAG (ER ONLY) 1 GM/50 ML PIGGYBACK IV ONE (20:00)
[2019-09-27] MEDS ORDERED: FUROSEMIDE 40 MG/4 ML VIAL IV ONE (20:00)
[2019-09-27] MEDS ORDERED: VANCOMYCIN 1 GM in IV D5W 250 ML IV ONE (20:00)
--- NOTE | 2019-09-27 20:01 | NUR ---
[facility] PAGED
[2019-09-27] MEDS ORDERED: FUROSEMIDE 40 MG/4 ML VIAL ONE (20:10)
[2019-09-27] MEDS ORDERED: CEFTRIAXONE 1GM BAG (ER ONLY) 50 ML IV ONE (20:10)
[2019-09-27] MEDS ORDERED: VANCOMYCIN 1 GM VIAL ONE (20:11)
--- NOTE | 2019-09-27 20:15 | NUR ---
RADHAMES END TIME: [address] STEIN NO BLOOD CULTURE NEEDED. URINE CULTURE IS ENOUGH
[2019-09-27] MEDS ORDERED: MAGNESIUM HYDROXIDE 30 ML UDC GT PRN (20:30)
[2019-09-27] MEDS ORDERED: GLUCERNA 1.5 1,000 ML BOTTLE GT SCH (20:30)
[2019-09-27] MEDS ORDERED: BISACODYL SUPP (10 MG) 10 MG/SUPP.RECT SUPP.RECT RC PRN (20:30)
[2019-09-27] MEDS ORDERED: ACETAMINOPHEN 325 MG TABLET PO PRN (20:30)
[2019-09-27] MEDS ORDERED: NA PHOS,M-B/NA PHOS,DI-BA 1 EA ENEMA RC PRN (20:30)
[2019-09-27] MEDS ORDERED: IV NS 0.9% 1,000 ML IV PRN (20:31)
--- NOTE | 2019-09-27 20:45 | NUR ---
BHUMIKA END TIME: 2144 LFA 22G.
[2019-09-27] MEDS: METOPROLOL TARTRATE 25 MG TABLET PO SCH (21:00)
[2019-09-27] MEDS ORDERED: Z GUARD REMEDY 2 OZ OINT TP PRN (21:00)
[2019-09-27] MEDS ORDERED: HEPARIN SODIUM, PORCINE 5000 UNITS/1 ML VIAL SQ SCH (21:00)
[2019-09-27] MEDS ORDERED: CHLORHEXIDINE GLUCONATE 473 ML BOTTLE MM SCH (21:00)
[2019-09-27] MEDS ORDERED: HYDROCODONE/APAP 5/325MG 1 EACH TABLET PO PRN (21:00)
[2019-09-27] MEDS: PANTOPRAZOLE 40 MG/PACK PACK GT SCH (21:00)
[2019-09-27] MEDS ORDERED: ALBUTEROL FS 2.5 MG/0.5 ML VIAL.NEB NEB PRN (21:00)
[2019-09-27] MEDS ORDERED: IPRATROPIUM NEB FS 0.5 MG/2.5 ML AMPUL.NEB NEB PRN (21:00)
[2019-09-27] MEDS: VALPROIC ACID 250 MG/5 ML UDC GT SCH (21:00)
[2019-09-27] MEDS ORDERED: DEXTROSE 50%-WATER 50 ML DISP.SYRIN IV PRN (21:00)
[2019-09-27] MEDS ORDERED: ONDANSETRON HCL/PF 4 MG/2 ML VIAL IVP PRN (21:00)
--- NOTE | 2019-09-27 21:04 | NUR ---
REPORT GIVEN TO TARI ON FIRST FLOOR
[2019-09-27 21:20] VITALS: BP 100/55
--- NOTE | 2019-09-27 21:30 | NUR ---
GERALDINE RN NOTE ADMITTED 59 YEARS OLD FOR IN WITH DX OF SEPSIS, UTI, RESP FAILURE BY DR WEST. ON VENT/TRACH SHILEY #10, AC 12, TV 500 FIO2 40 % PEEP 5. PT IS OBTUNDED. TOLERATING THE VENT SETTINGS WELL. SUCTIONED HIM NEEDED NOTED THIN WHITE SECRETIONS. ON NO DISTRESS OR DISCOMFORT NOTED. NO S/S OF PAIN NOTED. ON TELE MONITOR ST 120'S. RT NEPHROSTOMY TUBE INTACT AND PATENT DRAINING DARK YELLOWISH COLOR FLUID. F/C INTACT AND PATENT DRAINING WHITE PUSS URINE WITH ODER NOTED. LFA SL #22 G INTACT AND PATENT. SKIN ASSESSMENT DONE, NOTED MULTIPLE WOUNDS AND ULCERS, PICTURES TAKEN AND PLACE THEM IN THE CHART. WOUND AND DIETARY CONSULT TRIGGERED. NO S/S OF HYPO OR HYPERGLYCEMIA NOTED. GT SITE IS LEAKING WITH BLOODY FLUIDS. PT IS REMAIN NPO. GT CLAMPED. ADMITTING ORDERS CHECKED AND CARRIED OUT. KEPT HIM DRY AND CLEAN. KEPT HOB ELEVATED. SIDE RAILS UP X 3 AND CALL LIGHT WITH IN REACH. VSS. REPOSITION HIM FOR SKIN MANAGEMENT. CONTINUE TO MONITOR HIM.
--- NOTE | 2019-09-27 21:30 | NUR ---
PT WAS TRANSFERRED TO 103 UNDER ACLS.
[2019-09-27] MEDS ORDERED: INSULIN GLARGINE,BASAGLAR 100 UNIT/ML INSULN.PEN SQ SCH (22:00)
[2019-09-27] MEDS: TAMSULOSIN 0.4 MG CAP.SR.24H GT SCH (22:00)
--- NOTE | 2019-09-27 22:15 | NUR ---
GERALDINE RN NOTE DR WETS VISITED THE PT AND GAVE NEW ORDERS, ORDERS NOTED AND CARRIED OUT.
--- NOTE | 2019-09-27 22:38 | NUR ---
GERALDINE RN NOTE HELD HEPARIN DUE TO PT BLEEDING THROUGH GT SITED. DR WEST ALSO INFORMED.
[2019-09-27] MEDS: BLOOD SUGAR DIAGNOSTIC 1 EACH STRIP IN SCH (22:45)
[2019-09-27] MEDS ORDERED: MEROPENEM 500 MG VIAL IV ONE (22:59)
--- NOTE | 2019-09-27 23:00 | NUR ---
GERALDINE RN NOTE PROCALCITONIN 22.63. DR WEST INFORMED NNO AT THIS TIME.
[2019-09-27] MEDS ORDERED: LINEZOLID RTU BAG 300 ML IV ONE (23:15)
[2019-09-27] MEDS: IV D5/ 0.9% NACL 1,000 ML IV PRN (23:25)
[2019-09-27] MEDS: MEROPENEM 500 MG in IV NS 0.9% 50 ML IV SCH (23:30)
[2019-09-28] VITALS: BP 108/54
[2019-09-28] MEDS: LINEZOLID RTU BAG 600 MG in PREMIX 1 EA IV SCH ×3 (00:20→20:40)
[2019-09-28] MEDS: VALPROIC ACID 250 MG/5 ML UDC GT SCH (05:00)
[2019-09-28] MEDS: BLOOD SUGAR DIAGNOSTIC 1 EACH STRIP IN SCH ×3 (06:04→17:19)
[2019-09-28 06:26] LABS: BASOPHILS % (AUTO) 0.2 % (0.0-2.0); EOSINOPHILS % (AUTO) 0.6 % (0.0-6.0); HEMATOCRIT 24 % (39-51); HEMOGLOBIN 7.7 g/dL (13.5-17.5); LYMPHOCYTES % (AUTO) 12.1 % (20.0-44.0); MEAN CORPUSCULAR HGB CONC 32 g/dl (31.0-36.0); MEAN CORPUSCULAR VOLUME 89 fL (80-96); MONOCYTES # (AUTO) 2.6 /CMM (0.1-1.30); MONOCYTES % (AUTO) 15.9 % (2.0-12.0); NEUTROPHILS # (AUTO) 11.6 /CMM (1.8-8.9); NEUTROPHILS % (AUTO) 71.2 % (43.0-81.0); PLATELET COUNT (AUTO) 311 /CMM (150-450); RED BLOOD CELL COUNT(AUTO) 2.67 MIL/uL (4.5-6.0); WHITE BLOOD COUNT (AUTO) 16.3 K/uL (4.3-11.0)
--- NOTE | 2019-09-28 06:44 | NUR ---
GERALDINE RN NOTE PT IN BED OBTUNDED. SUCTIONED HIM FREQUENTLY, THIN WHITE SECRETIONS NOTED. IVF D5NS INFUSING WELL, NO S/S OF INFILTRATION NOTED. F/C INTACT AND PATENT DRAINING PUSS FILLED WHITE COLOR URINE. NEPHROSTOMY BAG INTACT AND PATENT DRAINING DARK YELLOWISH COLOR FLUIDS. ON TELE MONITOR ST 127. REPOSITIONED HIM Q2H, KEPT HIM DRY AND CLEAN. INCONTINENCE CARE GIVEN. GT SITE REMAIN LEAKING. MODERATED AMOUNT OF DARK BROWNISH FLUID. SIDE RAILS UP X 3 AND CALL LIGHT WITHIN REACH. WILL ENDORSE TO DAY SHIFT NURSE FOR CONTINUE TO CARE.
[2019-09-28 06:52] LABS: B-TYPE NATRIURETIC PEPTIDE 3040 PG/ML (0-125); CALCIUM, SERUM 8.8 mg/dL (8.5-10.1); CARBON DIOXIDE 20 mmol/L (21-32); CHLORIDE 97 mmol/L (98-107); CREATININE 2.7 mg/dL (0.6-1.3); GLUCOSE 71 mg/dL (74-106); MAGNESIUM 1.9 mg/dL (1.8-2.4); PHOSPHORUS 3.7 mg/dL (2.5-4.9); POTASSIUM 5.3 mmol/L (3.5-5.1); SODIUM SERUM 130 mmol/L (136-145); UREA NITROGEN, BLOOD 67 mg/dL (7-18)
[2019-09-28 06:55] LABS: CHOLESTEROL 62 mg/dL (<200); LDL 36 mg/dL (0-99); THYROID STIMULATING HORMONE 2.572 uIU/mL (0.358-3.74); TRIGLYCERIDES 74 mg/dL (30-150)
[2019-09-28 06:57] LABS: HDL CHOLESTEROL < 10 mg/dL (40-60)
--- NOTE | 2019-09-28 07:15 | NUR ---
GERALDINE RN OPENING NOTES RECEIVED PT IN BED IN STABLE CONDITION. PT IS OBTUNDED. ON VENT/TRACH SETTING ORDERED. TOLERATING VENTS SETTING WELL. SUCTIONED PATIENT NEEDED. NOTED SECRETIONS AROUND THE TRACH OPENING. PT DOES NOT SEEM TO BE IN DISTRESS. ON TELE MONITOR WITH SINUS TACHYCARDIA NOTED, 122BPM. NEPHROSTOMY IS PATENT AND INTACT ON THE RIGHT SIDE. PT HAS A LEAKING G TUBE MD NOTIFIED. LEAKING DARK BROWN SECRETION, BLOOD TINGLED. PT ALSO HAS A PARK CATHETER, INTACT. LIGHT YELLOW CLOUDY URINE WITH BLOOD NOTED IN THE PARK BAG. IV ON LEFT FOREARM #22, FLUSHED WELL, INTACT, NO S/S OF INFECTION. D5 NS RUNNING @ 75MLS/HR. SAFETY MAINTAINED. CALL LIGHT WITHIN REACH. WILL CONTINUE MONITORING.
[2019-09-28 08:00] VITALS: BP 103/56
[2019-09-28] MEDS: MEROPENEM 500 MG in IV NS 0.9% 50 ML IV SCH ×2 (08:29→20:40)
[2019-09-28] MEDS: CHLORHEXIDINE GLUCONATE 15 ML UDC MM SCH ×2 (08:29→17:19)
--- NOTE | 2019-09-28 08:30 | NUR ---
GERALDINE RN NOTES DID NOT ADMINISTER MORNING GT MEDICATIONS BECAUSE THE G TUBE IS LEAKING. DARK BROWN LEAKAGE WITH BLOOD TINGLED IN IT NOTED. DR RAMAN AMEZQUITA IS NOTIFIED.
[2019-09-28] MEDS: METOPROLOL TARTRATE 25 MG TABLET PO SCH ×2 (08:40→20:33)
[2019-09-28] MEDS: ASCORBIC ACID 500 MG TABLET GT SCH (08:40)
[2019-09-28] MEDS: BICALUTAMIDE 50 MG TABLET GT SCH (08:40)
[2019-09-28] MEDS: CALCIUM CARB 250MG /VITAMIN D 1 UDTAB GT SCH (08:40)
[2019-09-28] MEDS: ZINC SULFATE 220 MG CAPSULE GT SCH (08:40)
[2019-09-28] MEDS: PANTOPRAZOLE 40 MG/PACK PACK GT SCH ×2 (08:40→20:33)
--- NOTE | 2019-09-28 09:47 | NUR ---
WOUND CARE CONSULT: PT PRESENTS WITH MULTIPLE WOUNDS AND SKIN ISSUES, PRESENT ON ADMISSION INCLUDING DRAINAGE FROM G TUBE SITE WITH REDNESS, FOUL NECROTIC WOUND TO POSTERIOR HEAD, SACRAL FRAGILE SCARRING, AND FOOT WOUNDS. RECOMMEND DPM CONSULT AND SURGICAL CONSULT. DR BEARDEN NOTIFIED OF DPM CONSULT REQUEST. DR JENNA ONOFRE NOTIFED OF SURGICAL CONSULT REQUEST. FIRST STEP LOW AIRLOSS MATTRESS ORDERED. SKIN PROTECTION AND WOUND CARE RECOMMENDATIONS DISCUSSED WITH NURSING STAFF. DEFER TO DPM FOR LOWER EXTREMITIES. WILL SEE PRN. LEWIS IN AGREEMENT WITH PLAN OF CARE. Addendum: 09/28/19 at 0949 by VANESSA CONTRERAS WNDNU Amended: Links added.
--- NOTE | 2019-09-28 11:27 | NUR ---
RN OPENING NOTES RECEIVED PATIENT RESTING IN BED COMFORTABLY. HE IS OBTUNED, NON-VERBAL, AND BED BOUND. HE IS ON MECH VENT WITH SHILEY 10 TRACH, TOLERATING VENT SETTINGS WELL, NO S/SX OF RESP DISTRESS. TELE MONITOR SHOWING SINUS TACHY. NEPHROSTOMY ON RIGHT SIDE IS PATENT AND INTACT. PARK CATH IS PATENT AND INTACT, DRAINING CLOUDY AND YELLOW URINE. GTUBE IS INTACT BUT IS LEAKING BLOOD TINGED BROWN FLUID. UNABLE TO ADMIN MEDSMD AWARE. LFA 22G IS PATENT AND INTACT, INFUSING D5 NS AT 75 ML.HR. SAFETY MEASURES HAVE BEEN IMPLEMENTED, CALL LIGHT IS WITHIN REACH, BED IS IN LOWEST AND LOCKED POSITION, SIDE RAILS UP X2, WILL CONTINUE TO MONITOR FOR ANY CHANGES.
[2019-09-28 12:00] VITALS: BP 98/49
--- NOTE | 2019-09-28 12:30 | NUR ---
RN NOTES PT HAD VALPORIC ACID SCHEDULED AT 1300, UNABLE TO ADMIN REGULAR ROUTE BECAUSE PT GTUBE IS LEAKING. SPOKE WITH PHARMACY, MEDICATION WAS CHANGED TO IV FROM. WILL CONTINUE TO MONITOR FOR ANY CHANGES
[2019-09-28] MEDS: DAKINS QUARTER STRENGTH (0.125%) 480 ML BOTTLE TOP SCH (12:54)
[2019-09-28] MEDS: VALPROATE 500 MG in IV D5W 100 ML IV SCH ×2 (13:17→20:40)
[2019-09-28] MEDS: EPOETIN ALFA (4000 UNIT) 4,000 UNIT/ML VIAL SQ SCH (14:42)
--- NOTE | 2019-09-28 15:43 | NUR ---
RN NOTES PT HAS NOT BEEN SEEN BY GI CONSULT YET FOR LEAKING GTUBE. ATTEMPTED TO REACH DR. VIVEROS TWICE BUT NO SUCCESS. LEFT A MESSAGE WITH HIS COACH CLEANER, PT INFORMATION WILL BE FORWARDED TO DR. VIVEROS PER GREETING CARD WRITER. WAITING FOR CALL BACK, WILL CONTINUE TO MONITOR FOR ANY CHANGES.
[2019-09-28 16:00] VITALS: BP_SYST 90; BP_SYST 94; BP_DIAS 50; BP_DIAS 52
[2019-09-28 17:38] LABS: CREATININE, URINE 21.9 MG/DL (30.0-125.0); URINE TOTAL PROTEIN 557.4 mg/dL (0-11.9)
[2019-09-28 17:57] LABS: APPEARANCE,URINE TURBID (CLEAR); COLOR,URINE DARK YELLOW (YELLOW)
[2019-09-28 17:58] LABS: BILIRUBIN,URINE NEGATIVE (NEGATIVE); BLOOD, URINE 3+ Ery/uL (NEGATIVE); KETONES,URINE NEGATIVE (NEGATIVE); PROTEIN,URINE 2+ mg/dl (NEGATIVE); UGLUCOSE NEGATIVE (NEGATIVE)
[2019-09-28 17:59] LABS: LEUKOCYTE ESTERASE ,URINE 3+ (NEGATIVE); NITRITE, URINE NEGATIVE (NEGATIVE); UROBILINOGEN,URINE 0.2 EU/dL (0.2)
--- NOTE | 2019-09-28 18:24 | NUR ---
RN NOTE NEPHROSTOMY OUTPUT WAS 300ML THROUGH MY SHIFT.
[2019-09-28 18:30] LABS: RBC,URINE 51-80 /HPF (0-2); WBC,URINE 51-80 /HPF (0-3)
[2019-09-28 18:31] LABS: BACTERIA,URINE Moderate /HPF (None Seen); EOSINOPHIL,URINE None Seen; MUCUS,URINE Few /LPF (None Seen); SQUAMOUS EPITHELIAL CELL,UR Few /HPF (None Seen)
--- NOTE | 2019-09-28 18:46 | NUR ---
RN NOTES SPOKE WITH DR. WATTS, HE HAS BEEN MADE AWARE OF PT CONDITION. NO NEW ORDERS AT THIS TIME, KEEP PT NPO. HE IS TO ASSESS PATIENT TOMORROW. WILL CONTINUE TO MONITOR FOR ANY CHANGES.
--- NOTE | 2019-09-28 19:00 | NUR ---
GERALDINE RN CLOSING NOTES NO ACUTE CHANGES IN PATIENT CONDITION. PT IS OBTUNDED LAYING IN BED WITH THE HOB SLIGHTLY ELEVATED. PT WAS SUCTIONED FREQUENTLY WITH THIN WHITE SECRETIONS NOTED. IV INTACT AND FLUSHED WELL. D5 NS INFUSING @ 75MLS/HR. NO S/S OF INFILTRATION NOTED. G TUBE LEAKING. DR. WATTS AWARE, STATED WILL COME TOMORROW MORNING TO ASSESS. G TUBE SECRETIONS NOTES, DARK BROWN WITH BLOOD TINGLED AROUND. G TUBE DRESSING CHANGED 4X DURING MY SHIFT. PTS NEPHROSTOMY BAG IS INTACT AND DRAINED 300ML OF DARK YELLOW FLUID THROUGHOUT MY SHIFT. FC INTACT AND PATENT, DRAINING LIGHT YELLOW AND RED URINE. PT IS ON TELE MONITOR RUNNING SINUS TACHY AT 130 BPM. PT WAS REPOSITIONED Q2HR. SAFETY MAINTAINED. CALL LIGHT IN REACH. BED TO THE LOWEST POSITIONED AND ALARMED. WILL ENDORSE TO INFANTRY ASSAULTMAN NURSE TO CONTINUE CARE.
--- NOTE | 2019-09-28 19:19 | NUR ---
RN CLOSING NOTES PATIENT IS RESTING COMFORTABLY IN BED, NO S/SX OF RESP DISTRESS, SOB, OR PAIN. PT TO BE SEEN BY DR WATTS TOMORROW. NO ACUTE CHANGES OCCURRED THROUGHOUT THE SHIFT, PT NEEDS HAVE BEEN MET. SAFETY MEASURES HAVE BEEN IMPLEMENTED, CALL LIGHT IS WITHIN REACH, SIDE RAILS UP X2, PT HAS BEEN ENDORSED TO NIGHTSHIFT RN FOR CONTINUITY OF CARE.
[2019-09-28 20:00] VITALS: BP 112/60
--- NOTE | 2019-09-28 20:00 | NUR ---
GERALDINE RN - NOTE - PT ON VENT/TRACH SHILEY #10, AC 12, TV 500 FIO2 30 % PEEP 5. PT IS OBTUNDED. TOLERATING THE VENT SETTINGS WELL. SUCTIONED HIM NEEDED NOTED THIN WHITE SECRETIONS. ON NO DISTRESS OR DISCOMFORT NOTED. NO S/S OF PAIN NOTED. ON TELE MONITOR ST 120'S. RT NEPHROSTOMY TUBE INTACT AND PATENT DRAINING DARK YELLOWISH COLOR LIQUID. F/C INTACT AND PATENT DRAINING WHITE PURULENT URINE WITH ODOR NOTED. LFA #22 G INTACT AND PATENT. SKIN ASSESSMENT DONE, NOTED MULTIPLE WOUNDS AND ULCERS. NO S/S OF HYPO OR HYPERGLYCEMIA NOTED. GT SITE IS LEAKING WITH BLOODY FLUIDS. PT IS TO REMAIN NPO. GT CLAMPED. PT KEPT DRY AND CLEAN. KEPT HOB ELEVATED. SIDE RAILS UP X 3 AND CALL LIGHT WITH IN REACH. VSS. REPOSITION HIM FOR SKIN MANAGEMENT. CONTINUE TO MONITOR HIM.
[2019-09-28] MEDS ORDERED: CHLORHEXIDINE GLUCONATE 4% 118 ML BOTTLE TP SCH (20:30)
[2019-09-28] MEDS: IV D5/ 0.9% NACL 1,000 ML IV PRN (20:34)
[2019-09-28] MEDS: TAMSULOSIN 0.4 MG CAP.SR.24H GT SCH (21:15)
[2019-09-28] MEDS: INSULIN GLARGINE, 100 UNIT/ML CARTRIDGE SQ SCH (22:00)
[2019-09-29] VITALS: BP 100/56
[2019-09-29] MEDS: BLOOD SUGAR DIAGNOSTIC 1 EACH STRIP IN SCH ×5 (00:42→23:02)
[2019-09-29 04:00] VITALS: BP 98/55
[2019-09-29] MEDS: VALPROATE 500 MG in IV D5W 100 ML IV SCH ×3 (04:22→22:20)
[2019-09-29 06:46] LABS: BASOPHILS # (AUTO) 0.1 /CMM (0.0-0.2); BASOPHILS % (AUTO) 0.3 % (0.0-2.0); HEMATOCRIT 23 % (39-51); HEMOGLOBIN 7.3 g/dL (13.5-17.5); LYMPHOCYTES # (AUTO) 3.5 /CMM (0.8-4.8); LYMPHOCYTES % (AUTO) 19.7 % (20.0-44.0); MEAN CORPUSCULAR HGB CONC 32 g/dl (31.0-36.0); MEAN CORPUSCULAR VOLUME 90 fL (80-96); MONOCYTES # (AUTO) 2.6 /CMM (0.1-1.30); MONOCYTES % (AUTO) 14.8 % (2.0-12.0); NEUTROPHILS # (AUTO) 11.3 /CMM (1.8-8.9); NEUTROPHILS % (AUTO) 64.2 % (43.0-81.0); PLATELET COUNT (AUTO) 341 /CMM (150-450); RED BLOOD CELL COUNT(AUTO) 2.51 MIL/uL (4.5-6.0); WHITE BLOOD COUNT (AUTO) 17.6 K/uL (4.3-11.0)
--- NOTE | 2019-09-29 07:30 | NUR ---
GERALDINE RN OPENING NOTE RECEIVED PT RESTING IN BED COMFORTABLY IN SUPINE POSITION. PT IS OBTUNDED, BED BOUND, AND NONE VERBAL. PT IS ON MECHANICAL VENT WITH SHILEY 10 TRACH, TOLERATING VENT SETTINGS WELL. NO S/S OF RESPIRATORY DISTRESS NOTED. PT IS ON TELE MONITOR RUNNING SINUS TACHYCARDIA @ 111BPM. PT ALSO HAS A NEPHROSTOMY ON THE RIGHT SIDE, PATENT, INTACT, DRAINING DARK YELLOW LIQUID. PT HAS A PARK CATHETER THAT IS PATENT AND IS DRAINING LIGHT YELLOW URINE WITH VISIBLE HEMATURIA. BLOOD CLOTS NOTED INSIDE THE PARK BAG. PT ALSO HAS A G-TUBE PRESENT. THE G-TUBE IS INTACT BUT IS DRAINING DARK BROWN LIQUID WHEN FLUSHED. ALSO BLOOD NOTED ON THE G TUBE DRAINAGE. WILL HOLD MEDICATIONS THAT HAVE TO BE GIVEN THROUGH G TUBE. AWARE. IV SITE ON LFA #22, PATENT AND INTACT. INFUSING D5 NS @ 75ML/HR. WILL CONTINUE TO MONITOR CLOSELY. SAFETY MAINTAINED, CALL LIGHT WITHIN REACH.
[2019-09-29 08:00] VITALS: BP 91/58
[2019-09-29 08:06] LABS: BILIRUBIN,TOTAL 0.6 mg/dL (0.2-1.0); CALCIUM, SERUM 8.9 mg/dL (8.5-10.1); CREATININE 2.5 mg/dL (0.6-1.3); MAGNESIUM 2.1 mg/dL (1.8-2.4); POTASSIUM 4.8 mmol/L (3.5-5.1); TOTAL PROTEIN, SERUM 8.1 g/dL (6.4-8.2)
[2019-09-29 08:16] LABS: ALBUMIN 1.2 g/dL (3.4-5.0)
[2019-09-29] MEDS: MEROPENEM 500 MG in IV NS 0.9% 50 ML IV SCH ×2 (08:40→22:20)
[2019-09-29] MEDS: CHLORHEXIDINE GLUCONATE 15 ML UDC MM SCH ×2 (08:40→17:35)
[2019-09-29] MEDS: HYDROGEL DRESSING 90 GM TUBE TP SCH (08:42)
[2019-09-29] MEDS: DAKINS QUARTER STRENGTH (0.125%) 480 ML BOTTLE TOP SCH (08:43)
[2019-09-29] MEDS: BICALUTAMIDE 50 MG TABLET GT SCH (08:59)
[2019-09-29] MEDS: PANTOPRAZOLE 40 MG/PACK PACK GT SCH ×2 (08:59→22:00)
[2019-09-29] MEDS: CALCIUM CARB 250MG /VITAMIN D 1 UDTAB GT SCH (08:59)
[2019-09-29] MEDS: METOPROLOL TARTRATE 25 MG TABLET PO SCH ×2 (09:00→21:00)
[2019-09-29] MEDS: ASCORBIC ACID 500 MG TABLET GT SCH (09:00)
[2019-09-29] MEDS: ZINC SULFATE 220 MG CAPSULE GT SCH (09:00)
--- NOTE | 2019-09-29 09:30 | NUR ---
RN NOTE GT MEDICATIONS ARE BEING HELD DUE TO A LEAKING G TUBE. MD IS AWARE.
[2019-09-29] MEDS: LINEZOLID RTU BAG 600 MG in PREMIX 1 EA IV SCH ×2 (09:42→22:00)
[2019-09-29 12:00] VITALS: BP_SYST 93; BP_DIAS 55; BP_DIAS 59
[2019-09-29] MEDS: ALBUMIN 25% 25 GM in PREMIX 1 EA IV SCH ×2 (14:25→20:19)
--- NOTE | 2019-09-29 15:44 | NUR ---
TERESA DONATO FROM SURGERY CAME IN TO ASSESS THE PT. LOOKED AT THE G TUBE AND THE WOUND ON THE POSTERIOR OF THE HEAD. WILL ORDER WOUND DEBRIDEMENT. WILL CONTINUE MONITORING AND STILL WAITING ON GI CONSULT.
[2019-09-29 16:00] VITALS: BP 94/59
--- NOTE | 2019-09-29 17:38 | NUR ---
RT END OF THE SHIFT REPORT Pt. rec. @0700 AM trachemaikol tanner # 10 on ventilator with noted settings. Vent alarms are set and audible with ambu bag by bedside. FULL STACK ENGINEER cuff pressure done, hme changed. Vent is plugged into red outlet. No Respiratory distress noted t/o day. bilaterally rhonchi b/s and sux'd for moderate amount of white/trevino secretions, equal chest rise noted. report will pass to PM shift. Addendum: 09/29/19 at 1742 by GEN MTZ RT Amended: Links added.
--- NOTE | 2019-09-29 19:26 | NUR ---
TELE/RN OPENING NOTES RECEIVED PATIENT IN HOB, ON MECHANICAL VENT WITH PRESCRIBED SETTING, OBTUNDED, REQUIRE NEEDED SUCTIONING, WITH MULTIPLE WOUNDS, WITH NEPROSTOMY TUBE AND PARK , ALBUMIN RUNNING, ON D5 NS, GTUBE LEAKING, NO PO MEDICATION TO BE GIVEN ON GTUBE, AT THIS TIME. FOR DEBRIDEMENT ON SCALP F/U DEBRIDEMENT PROCEDURE AND CONSENT, WILL CONTINUE TO MONITOR, RECEIVED ENDORSEMENT FROM AM RN FOR LIZETH.
--- NOTE | 2019-09-29 19:30 | NUR ---
RACK WASHER CLOSING NOTES PATIENT IS RESTING COMFORTABLY IN BED. NO ACUTE CHANGES TO THE PT CONDITION THROUGH MY SHIFT. PATIENT IS ON VENTILATOR TOLERATING SETTINGS WELL. PT NEEDS HAVE BEEN MET. WOUND CULTURE OF THE HEAD HAVE BEEN SENT TO LAB AWAITING RESULTS. DR. WATTS DID NOT SEE THE PATIENT TODAY. KINGA FROM SURGERY CAME TO ASSESS G TUBE. PATIENT NEEDS HAVE BEEN MET. SAFETY MAINTAINED. ENDORSED TO HYDROLOGY PROFESSOR NURSE. PM NURSE WILL CONTINUE TO MONITOR.
--- NOTE | 2019-09-29 19:47 | NUR ---
TELE/RN NOTES GI CONSULT MADE ROUND ORDER TO CONTINUE GTUBE FEEDING AND ORDERED REGLAN IV 10MG TID. ORDER CARRIED OUT. WILL MONITOR.
[2019-09-29 20:00] VITALS: BP 96/57
[2019-09-29] MEDS: INSULIN GLARGINE, 100 UNIT/ML CARTRIDGE SQ SCH (22:00)
[2019-09-29] MEDS: TAMSULOSIN 0.4 MG CAP.SR.24H GT SCH (22:00)
[2019-09-29] MEDS: IV D5/ 0.9% NACL 1,000 ML IV PRN (22:05)
[2019-09-30] VITALS: BP 100/54
[2019-09-30] MEDS: ALBUMIN 25% 25 GM in PREMIX 1 EA IV SCH ×2 (02:35→08:51)
[2019-09-30 04:00] VITALS: BP 97/54
[2019-09-30] MEDS: VALPROATE 500 MG in IV D5W 100 ML IV SCH ×3 (04:25→20:48)
[2019-09-30] MEDS: BLOOD SUGAR DIAGNOSTIC 1 EACH STRIP IN SCH ×3 (05:06→17:14)
[2019-09-30] MEDS ORDERED: BLOOD SUGAR DIAGNOSTIC 1 EACH STRIP IN SCH (06:00)
--- NOTE | 2019-09-30 06:26 | NUR ---
TELE/RN NOTES PATIENT HOB ELEVATED ON TELE MONITORING WITH ST AT 105. ON MECHANICAL VENT WITH PRESCRIBED SETTING. KEPT COMFORTABLE, WOUND CARE PROVIDED, REPOSITIONED FOR COMFORT, OFF LOAD EXTREMITIES. BED LOCKED CALL LIGHTS WITHIN REACH, WILL MONITOR.
[2019-09-30 06:35] LABS: CALCIUM, SERUM 8.8 mg/dL (8.5-10.1); CREATININE 2.1 mg/dL (0.6-1.3); PHOSPHORUS 4.1 mg/dL (2.5-4.9); POTASSIUM 3.9 mmol/L (3.5-5.1)
[2019-09-30 07:13] LABS: BASOPHILS % (AUTO) 0.2 % (0.0-2.0); EOSINOPHILS % (AUTO) 1.2 % (0.0-6.0); HEMATOCRIT 23 % (39-51); HEMOGLOBIN 7.4 g/dL (13.5-17.5); LYMPHOCYTES # (AUTO) 2.9 /CMM (0.8-4.8); LYMPHOCYTES % (AUTO) 26.4 % (20.0-44.0); MEAN CORPUSCULAR HGB CONC 32 g/dl (31.0-36.0); MEAN CORPUSCULAR VOLUME 91 fL (80-96); MONOCYTES # (AUTO) 1.8 /CMM (0.1-1.30); NEUTROPHILS # (AUTO) 6.2 /CMM (1.8-8.9); NEUTROPHILS % (AUTO) 56.2 % (43.0-81.0); PLATELET COUNT (AUTO) 337 /CMM (150-450); RED BLOOD CELL COUNT(AUTO) 2.55 MIL/uL (4.5-6.0); WHITE BLOOD COUNT (AUTO) 11.1 K/uL (4.3-11.0)
[2019-09-30 08:00] VITALS: BP 98/55
--- NOTE | 2019-09-30 08:00 | NUR ---
TELE1/RN AM SHIFT INITIAL NOTES RECEIVED PT AWAKE IN BED, PT OBTUNDED, OPEN EYES, NO GRIMACING OR ACUTE CHANGE OF CONDITION NOTED. VENTILATOR DEPENDENT, RATES SET PRESCRIBED, SATURATING @ 100%, RESPIRATIONS EVEN AND UNLABORED, LUNG SOUNDS CLEAR, SUCTIONED FOR AIRWAY CLEARANCE. ON TELE WITH SINUS TACHY, HR 102. ON GOING IV INFUSION OF D5N5 @ 75CC/HR, IV SITE PATENT WITH NO S/S OF INFECTION. G-TUBE INTACT, FEEDING ON HOLD, PENDING WASH TUB MACHINE OPERATOR CONSULT, NO GT LEAKING NOTED, DRESSING INTACT AND DRY. RIGHT NEPHROSTOMY TUBE INTACT WITH YELLOW URINE OUTPUT. PARK CATHETER INTACT WITH YELLOW URINE OUTPUT. PT IS COMFORTABLE, SCHEDULED AM MEDS TO BE GIVEN. CL WITHIN REACHED, SAFETY MAINTAINED AND ISOLATION OBSERVED. ON GOING MONITORING.
[2019-09-30] MEDS: CHLORHEXIDINE GLUCONATE 15 ML UDC MM SCH ×2 (08:49→16:42)
[2019-09-30] MEDS: CALCIUM CARB 250MG /VITAMIN D 1 UDTAB GT SCH (08:50)
[2019-09-30] MEDS: ASCORBIC ACID 500 MG TABLET GT SCH (08:50)
[2019-09-30] MEDS: ZINC SULFATE 220 MG CAPSULE GT SCH (08:50)
[2019-09-30] MEDS: MEROPENEM 500 MG in IV NS 0.9% 50 ML IV SCH ×2 (08:50→21:07)
[2019-09-30] MEDS: BICALUTAMIDE 50 MG TABLET GT SCH (08:50)
[2019-09-30] MEDS: PANTOPRAZOLE 40 MG/PACK PACK GT SCH ×2 (08:50→20:48)
[2019-09-30] MEDS: LINEZOLID RTU BAG 600 MG in PREMIX 1 EA IV SCH ×2 (08:51→20:49)
[2019-09-30] MEDS: METOPROLOL TARTRATE 25 MG TABLET PO SCH ×2 (08:51→20:55)
[2019-09-30] MEDS: HYDROGEL DRESSING 90 GM TUBE TP SCH (08:52)
[2019-09-30] MEDS: DAKINS QUARTER STRENGTH (0.125%) 480 ML BOTTLE TOP SCH (08:52)
[2019-09-30 10:29] LABS: EOSINOPHILS % (MANUAL) 2 % (0-4); LYMPHOCYTES % (MANUAL) 21 % (16-48); MONOCYTES % (MANUAL) 14 % (0-11.0); NEUTROPHILS % (MANUAL) 63 (42-76)
[2019-09-30 12:00] VITALS: BP 100/54
[2019-09-30] MEDS ORDERED: METOCLOPRAMIDE HCL 10 MG/2 ML VIAL IV SCH (14:00)
[2019-09-30] MEDS ORDERED: SILVER NITRATE APPLICATOR 1 EA BOX TP ONE (15:00)
[2019-09-30 15:06] LABS: PTH, INTACT 48 pg/mL (15-65)
[2019-09-30] MEDS: METOCLOPRAMIDE HCL 10 MG/2 ML VIAL IV SCH ×2 (15:40→20:51)
[2019-09-30] MEDS: EPOETIN ALFA (4000 UNIT) 4,000 UNIT/ML VIAL SQ SCH (15:40)
[2019-09-30 16:00] VITALS: BP 109/66
--- NOTE | 2019-09-30 16:30 | NUR ---
TD/RN AFTERNOON ROUNDS PM CARE PROVIDED, NOTED LEAKING ON GT SITE, DRY DRESSING PLACED. NO ACUTE CHANGE OF CONDITION. MONITORING CONTINUED.
[2019-09-30] MEDS: IV D5/ 0.9% NACL 1,000 ML IV PRN (17:32)
--- NOTE | 2019-09-30 19:18 | NUR ---
TD/RN AM SHIFT CLOSING NOTES NO ACUTE CHANGE OF CONDITION NOTED DURING THE SHIFT. ALL NEEDS MET. PT ENDORSED TO PM NURSE TO CONTINUE CARE. CL WITHIN REACHED, SAFETY MAINTAINED AND ISOLATION OBSERVED.
--- NOTE | 2019-09-30 19:27 | NUR ---
GERALDINE RN NOTE PATIENT IN RECEIVED IN BED OBTUNDED EYES OPEN. PATIENT HR ON THE MONITOR ST. PATIENT TOLERATING CURRENT VENT SETTINGS SATURATION 100%. BREATHING EVEN AND UNLABORED TRACH MIDLINE. IV IN LEFT LFA PATENT AND INTACT NO S/S OF INFECTION OR INFILTRATION. PATIENT REPOSITIONED AND ORAL CARE GIVEN. GTUBE CURRENTLY CLAMPED. PATIENT HAS NEPHROSTOMY TUBE DRAINING YELLOW AND CLEAR, PARK CLOUDY AND SLIGHTLY PINK TINGED. SAFETY AND ASPIRATION PRECAUTIONS IN PLACE. RN WILL CONTINUE TO MONITOR FOR CHANGES.
[2019-09-30 20:00] VITALS: BP 98/58
--- NOTE | 2019-09-30 20:56 | NUR ---
GERALDINE RN NOTE HOLDING LOPRESSOR D/T LOW BP RN WILL CONTINUE TO MONITOR
[2019-09-30] MEDS: TAMSULOSIN 0.4 MG CAP.SR.24H GT SCH (22:25)
[2019-09-30] MEDS: INSULIN GLARGINE, 100 UNIT/ML CARTRIDGE SQ SCH (22:53)
[2019-10-01] VITALS: BP 102/59
[2019-10-01] MEDS: BLOOD SUGAR DIAGNOSTIC 1 EACH STRIP IN SCH ×5 (01:58→23:11)
[2019-10-01 04:00] VITALS: BP 103/56
[2019-10-01] MEDS: VALPROATE 500 MG in IV D5W 100 ML IV SCH ×3 (05:25→21:20)
[2019-10-01 06:35] LABS: BASOPHILS % (AUTO) 0.4 % (0.0-2.0); HEMATOCRIT 24 % (39-51); HEMOGLOBIN 7.9 g/dL (13.5-17.5); LYMPHOCYTES # (AUTO) 2.4 /CMM (0.8-4.8); LYMPHOCYTES % (AUTO) 30.1 % (20.0-44.0); MEAN CORPUSCULAR HGB CONC 33 g/dl (31.0-36.0); MEAN CORPUSCULAR VOLUME 91 fL (80-96); MONOCYTES # (AUTO) 1.2 /CMM (0.1-1.30); MONOCYTES % (AUTO) 15.3 % (2.0-12.0); NEUTROPHILS # (AUTO) 4.1 /CMM (1.8-8.9); NEUTROPHILS % (AUTO) 52.2 % (43.0-81.0); PLATELET COUNT (AUTO) 380 /CMM (150-450); RED BLOOD CELL COUNT(AUTO) 2.65 MIL/uL (4.5-6.0); WHITE BLOOD COUNT (AUTO) 7.8 K/uL (4.3-11.0)
--- NOTE | 2019-10-01 07:10 | NUR ---
rn albino notes received bed side report pt a/o x0 obtunded trach and vent tolerating vent settings as ordered no s/s of respiratory distress or acute pain noted sinus tachy on monitor. bed bound holm cath draining cloudy urine right nephrostomy draining clear yellow urine. npo at this time d/t gtf malfunction. d5ns @75 ml/hr running left wrist. bed in low locked position safety and aspiration precautions in place will cont to monitor accordingly
[2019-10-01 07:11] LABS: BILIRUBIN,TOTAL 0.7 mg/dL (0.2-1.0); CALCIUM, SERUM 8.9 mg/dL (8.5-10.1); CREATININE 1.5 mg/dL (0.6-1.3); POTASSIUM 3.8 mmol/L (3.5-5.1)
--- NOTE | 2019-10-01 07:37 | NUR ---
RT Pt received trached on mechanical ventilation with noted settings. Pt is awake but does not follow commands. Vent is plugged into red outlet. No SOB or respiratory distress noted. Addendum: 10/01/19 at 0928 by GABI JOY RT Amended: Links added.
[2019-10-01 08:00] VITALS: BP 105/62
[2019-10-01] MEDS: CALCIUM CARB 250MG /VITAMIN D 1 UDTAB GT SCH (08:34)
[2019-10-01] MEDS: BICALUTAMIDE 50 MG TABLET GT SCH (08:34)
[2019-10-01] MEDS: METOPROLOL TARTRATE 25 MG TABLET PO SCH ×2 (08:35→21:00)
[2019-10-01] MEDS: PANTOPRAZOLE 40 MG/PACK PACK GT SCH ×2 (08:35→21:13)
[2019-10-01] MEDS: ZINC SULFATE 220 MG CAPSULE GT SCH (08:35)
[2019-10-01] MEDS: ASCORBIC ACID 500 MG TABLET GT SCH (08:35)
--- NOTE | 2019-10-01 08:37 | NUR ---
all gt meds held d/t tube malfunction and leaking
[2019-10-01] MEDS: METOCLOPRAMIDE HCL 10 MG/2 ML VIAL IV SCH ×3 (08:48→17:24)
[2019-10-01] MEDS: MEROPENEM 500 MG in IV NS 0.9% 50 ML IV SCH ×2 (08:48→21:20)
[2019-10-01] MEDS: CHLORHEXIDINE GLUCONATE 15 ML UDC MM SCH ×2 (08:48→17:24)
[2019-10-01] MEDS: HYDROGEL DRESSING 90 GM TUBE TP SCH (08:49)
[2019-10-01] MEDS: DAKINS QUARTER STRENGTH (0.125%) 480 ML BOTTLE TOP SCH (08:49)
[2019-10-01] MEDS ORDERED: LINEZOLID 600 MG TABLET GT SCH (09:00)
[2019-10-01] MEDS: IV D5/ 0.9% NACL 1,000 ML IV PRN ×2 (10:22→23:54)
[2019-10-01 12:00] VITALS: BP 110/72
[2019-10-01 12:06] LABS: *SPE A/G RATIO 0.3 (0.7-1.7); *SPE ALBUMIN 1.6 g/dL (2.9-4.4); *SPE ALPHA-1-GLOBULIN 0.5 g/dL (0.0-0.4); *SPE ALPHA-2-GLOBULIN 0.9 g/dL (0.4-1.0); *SPE GLOBULIN, TOTAL 5.7 g/dL (2.2-3.9); *SPE M-SPIKE Not Observed g/dL (Not Observed); *SPEGAMMA GLOBULIN 3.4 g/dL (0.4-1.8)
--- NOTE | 2019-10-01 12:20 | NUR ---
posterior head wound debridement done by kristan anaya wound culture done and sent to labs for culture and sensitivity
[2019-10-01] MEDS: INSULIN REGULAR, HUMAN 100 UNIT/ML 3 ML VIAL SQ PRN ×3 (12:25→23:13)
[2019-10-01 16:00] VITALS: BP 109/70
--- NOTE | 2019-10-01 19:30 | NUR ---
RN OPENING NOTE RECEIVED PATIENT IN BED RESTING WITH HOB ELEVATED. PATIENT IS OBTUNDED. PATIENT IS ON VENT AND TOLERATED WELL. GTF IS ON HOLD. PATIENT IS NPO. IN NO APPARENT DISTRESS NOTED AT THIS TIME. WILL CONTINUE TO MONITOR.
[2019-10-01 20:00] VITALS: BP 113/70
[2019-10-01] MEDS: TAMSULOSIN 0.4 MG CAP.SR.24H GT SCH (21:12)
[2019-10-01] MEDS: INSULIN GLARGINE, 100 UNIT/ML CARTRIDGE SQ SCH (22:00)
--- NOTE | 2019-10-01 22:00 | NUR ---
RN NOTE BLOOD SUGAR IS 65. NO INSULIN COVERAGE. LANTUS MED HELD.
[2019-10-02] VITALS: BP 123/78
[2019-10-02 04:00] VITALS: BP 103/63
[2019-10-02] MEDS: VALPROATE 500 MG in IV D5W 100 ML IV SCH ×3 (04:12→21:30)
--- NOTE | 2019-10-02 04:21 | NUR ---
RT Note Pt rec'd trached on [facility] vent on ac mode. No resp distress or sob noted. trach is patent and secured. Sx'd for thick mod amt of pale yellow secretions. Alarms are set and audible. Vent plugged into red outlet. Ambu bag bedside. Will continue to monitor. Addendum: 10/02/19 at 0423 by JHONATHAN POLLARD RT Amended: Links added.
[2019-10-02] MEDS: BLOOD SUGAR DIAGNOSTIC 1 EACH STRIP IN SCH ×4 (05:20→23:06)
[2019-10-02] MEDS: INSULIN REGULAR, HUMAN 100 UNIT/ML 3 ML VIAL SQ PRN (05:23)
[2019-10-02 06:23] LABS: BASOPHILS % (AUTO) 0.4 % (0.0-2.0); EOSINOPHILS % (AUTO) 2.9 % (0.0-6.0); HEMATOCRIT 25 % (39-51); HEMOGLOBIN 8.1 g/dL (13.5-17.5); LYMPHOCYTES # (AUTO) 3.5 /CMM (0.8-4.8); LYMPHOCYTES % (AUTO) 41.4 % (20.0-44.0); MEAN CORPUSCULAR HGB CONC 33 g/dl (31.0-36.0); MEAN CORPUSCULAR VOLUME 92 fL (80-96); MONOCYTES # (AUTO) 1.2 /CMM (0.1-1.30); MONOCYTES % (AUTO) 14.1 % (2.0-12.0); NEUTROPHILS # (AUTO) 3.5 /CMM (1.8-8.9); NEUTROPHILS % (AUTO) 41.2 % (43.0-81.0); PLATELET COUNT (AUTO) 404 /CMM (150-450); RED BLOOD CELL COUNT(AUTO) 2.69 MIL/uL (4.5-6.0); WHITE BLOOD COUNT (AUTO) 8.5 K/uL (4.3-11.0)
--- NOTE | 2019-10-02 06:45 | NUR ---
RN CLOSING NOTE PATIENT IS IN BED RESTING WITH HOB ELEVATED. PATIENT IS OBTUNDED. RESPONSIVE TO LIGHT TOUCH. PATIENT IS ON VENT AND TOLERATED WELL. PATIENT HAS GASTRIC TUBE AND KEPT PATENT. ONLY MEDICATIONS GIVEN THROUGH GASTRIC TUBE. ALL DUE MEDS GIVEN AND TOLERATED WELL. IN NO APPARENT DISTRESS NOTED AT THIS TIME. BLOOD SUGAR LEVEL WAS 87 MG/DL AT 6 AM, NO INSULIN GIVEN PER SLIDING SCALE. PATIENT IS KEPT CLEAN, DRY, AND COMFORTABLE. BED IS LOWERED AND LOCKED FOR SAFETY. WILL ENDORSE TO AM SHIFT RN FOR LIZETH.
[2019-10-02 07:15] LABS: CALCIUM, SERUM 8.7 mg/dL (8.5-10.1); CREATININE 1.2 mg/dL (0.6-1.3); POTASSIUM 3.5 mmol/L (3.5-5.1)
[2019-10-02 08:00] VITALS: BP 117/69
--- NOTE | 2019-10-02 08:20 | NUR ---
GERALDINE RN OPENING NOTES RECEIVED PT IN BED. PT IS OBTUNDED AND IS ON MECHANICAL VENTILATOR WITH VENT SETTING TOLERATING WELL. PT IS IN STABLE CONDITION, NO S/S OF DISTRESS NOTED. IV ON RIGHT UPPER ARM PATENT AND RUNNING D5NS @ 75MLS/HR. NO S/S OF INFECTION OR INFILTRATION NOTED. IV ON LEFT WRIST SL, FLUSHED WELL AND PATENT. NO SIGNS OF RESPIRATORY DISTRESS NOTED. WILL CONTINUE TO CLOSELY MONITOR. SAFETY MAINTAINED, BED LOCKED, LOWERED, AND ALARMED. CALL LIGHT WITHIN REACH.
--- NOTE | 2019-10-02 08:39 | NUR ---
RT NOTE RECEIVED PT MECHANICALLY VENTILATED VIA CUFFED TRACHEOSTOMY TUBE. CUFF INFLATED. TRACH TUBE MIDLINE AND SECURE. VENTILATOR SETTINGS PRESCRIBED. ALARMS SET PER PROTOCOL AND AUDIBLE. VENT PLUGGED IN TO RED OUTLET. AMBU BAG AT BED SIDE. NO DISTRESS NOTED. Addendum: 10/02/19 at 0841 by NAKITA JIMENEZ RT Amended: Links added.
[2019-10-02] MEDS: BICALUTAMIDE 50 MG TABLET GT SCH (09:22)
[2019-10-02] MEDS: ASCORBIC ACID 500 MG TABLET GT SCH (09:22)
[2019-10-02] MEDS: METOCLOPRAMIDE HCL 10 MG/2 ML VIAL IV SCH ×3 (09:22→17:59)
[2019-10-02] MEDS: CHLORHEXIDINE GLUCONATE 15 ML UDC MM SCH ×2 (09:22→17:59)
[2019-10-02] MEDS: METOPROLOL TARTRATE 25 MG TABLET PO SCH ×2 (09:23→21:22)
[2019-10-02] MEDS: CALCIUM CARB 250MG /VITAMIN D 1 UDTAB GT SCH (09:23)
[2019-10-02] MEDS: ZINC SULFATE 220 MG CAPSULE GT SCH (09:24)
[2019-10-02] MEDS: PANTOPRAZOLE 40 MG/PACK PACK GT SCH ×2 (09:24→21:22)
[2019-10-02] MEDS: HYDROGEL DRESSING 90 GM TUBE TP SCH (09:32)
[2019-10-02] MEDS: DAKINS QUARTER STRENGTH (0.125%) 480 ML BOTTLE TOP SCH (09:32)
[2019-10-02] MEDS: MEROPENEM 500 MG in IV NS 0.9% 50 ML IV SCH ×2 (09:33→21:30)
[2019-10-02 12:00] VITALS: BP 109/68
[2019-10-02] MEDS: EPOETIN ALFA (4000 UNIT) 4,000 UNIT/ML VIAL SQ SCH (15:11)
[2019-10-02] MEDS: IV D5/ 0.9% NACL 1,000 ML IV PRN (16:13)
[2019-10-02 16:58] VITALS: BP 112/67
--- NOTE | 2019-10-02 18:37 | NUR ---
GERALDINE RN NOTES DR. GODDARD ASSESSED THE GI TUBE. NO LEAKAGE WAS PRESENT AT THE TIME OF THE ASSESSMENT. ORDERED TO CONTINUE TF. WILL CONTACT HOSPITALIST TO ORDER FEEDING FOR HIM.
--- NOTE | 2019-10-02 19:02 | NUR ---
QUALITY ASSURANCE SUPERVISOR TRIM GERALDINE NOTES SPOKE TO DR. LOPEZ, ORDERED TO CONTINUE TUBE FEEDING IT WAS BEFORE IT WAS DISCONTINUED.
--- NOTE | 2019-10-02 19:15 | NUR ---
GERALDINE RN OPENING NOTE RECEIVED PATIENT IN BED RESTING. OBTUNDED. PATIENT IS ON VENT. IN NO APPARENT DISTRESS NOTED AT THIS TIME. RECEIVED REPORT FROM AM SHIFT RN TO RESTART GASTRIC TUBE FEEDING AT PREVIOUS SETTINGS. BED IS LOWERED TO LOWEST POSITION AND LOCKED FOR SAFETY. CALL LIGHT IS WITHIN REACH. WILL CONTINUE TO MONITOR.
--- NOTE | 2019-10-02 19:20 | NUR ---
GERALDINE RN CLOSING NOTES ENDORSED PATIENT TO THORACIC SURGEON NURSE. NO ACUTE CHANGES TO PT CONDITION DURING MY SHIFT. GI CONSULT WAS DONE, ORDERED TO CONTINUE TUBE FEEDING AT PREVIOUS SETTINGS. THORACIC SURGEON WILL PUT IN THE ORDERS FOR THE FEEDING. PATIENT RESTING COMFORTABLY IN BED. SAFETY MAINTAINED. CALL LIGHT WITHIN REACH. BED LOCKED AND LOWERED. PM NURSE WILL CONTINUE MONITORING.
[2019-10-02] MEDS ORDERED: GLUCERNA 1.5 1,000 ML BOTTLE GT SCH (19:49)
[2019-10-02 20:00] VITALS: BP 128/81
[2019-10-02] MEDS ORDERED: GLUCERNA 1.2 1,000 ML BOTTLE GT PRN (21:00)
--- NOTE | 2019-10-02 21:19 | NUR ---
RT NOTE Pt rec'd trached on [facility] vent on ac mode . No resp distress or sob noted. Pt sx'd for thick mod amt of pale yellow secretions. trach is patent and secured. alarms are set and audible. vent plugged into red outlet. Ambu bag bedside. will continue to monitor. Addendum: 10/02/19 at 2119 by JHONATHAN POLLARD RT Amended: Links added.
[2019-10-02] MEDS: TAMSULOSIN 0.4 MG CAP.SR.24H GT SCH (21:22)
[2019-10-02] MEDS: INSULIN GLARGINE, 100 UNIT/ML CARTRIDGE SQ SCH (23:05)
[2019-10-03] VITALS: BP 118/70
--- NOTE | 2019-10-03 02:00 | NUR ---
RN NOTE FOUND PATIENT G-TUBE FEEDING LEAKING AROUND SITE. LARGE AMOUNT. FEEDING STOPPED. CHARGE NURSE MADE AWARE. WILL NOTIFY .
[2019-10-03 04:00] VITALS: BP 120/75
[2019-10-03] MEDS: VALPROATE 500 MG in IV D5W 100 ML IV SCH (04:33)
[2019-10-03] MEDS: IV D5/ 0.9% NACL 1,000 ML IV PRN (05:33)
[2019-10-03] MEDS: BLOOD SUGAR DIAGNOSTIC 1 EACH STRIP IN SCH ×3 (05:58→17:39)
--- NOTE | 2019-10-03 06:44 | NUR ---
GERALDINE RN CLOSING NOTE PATIENT IS IN BED RESTING WITH HOB ELEVATED. PATIENT IS OBTUNDED. ON VENT. IN NO APPARENT DISTRESS NOTED AT THIS TIME. GT FEEDING STOPPED AT 0200 DUE TO LEAKAGE AT SITE. ALL DUE MEDS GIVEN AND TOLERATED WELL. PATIENT IS KEPT CLEAN, DRY, AND COMFORTABLE. BED IS LOWERED AND LOCKED FOR SAFETY. WILL ENDORSE TO AM SHIFT RN.
[2019-10-03 06:52] LABS: BASOPHILS % (AUTO) 0.5 % (0.0-2.0); EOSINOPHILS % (AUTO) 2.7 % (0.0-6.0); HEMATOCRIT 24 % (39-51); HEMOGLOBIN 7.8 g/dL (13.5-17.5); LYMPHOCYTES # (AUTO) 3.8 /CMM (0.8-4.8); LYMPHOCYTES % (AUTO) 40.8 % (20.0-44.0); MEAN CORPUSCULAR HGB CONC 33 g/dl (31.0-36.0); MEAN CORPUSCULAR VOLUME 92 fL (80-96); MONOCYTES # (AUTO) 1.2 /CMM (0.1-1.30); MONOCYTES % (AUTO) 12.9 % (2.0-12.0); NEUTROPHILS % (AUTO) 43.1 % (43.0-81.0); PLATELET COUNT (AUTO) 405 /CMM (150-450); RED BLOOD CELL COUNT(AUTO) 2.58 MIL/uL (4.5-6.0); WHITE BLOOD COUNT (AUTO) 9.3 K/uL (4.3-11.0)
[2019-10-03 07:08] LABS: CALCIUM, SERUM 8.6 mg/dL (8.5-10.1); POTASSIUM 3.7 mmol/L (3.5-5.1)
[2019-10-03 08:00] VITALS: BP 109/62
[2019-10-03] MEDS: CHLORHEXIDINE GLUCONATE 15 ML UDC MM SCH ×2 (09:00→17:39)
[2019-10-03] MEDS: HYDROGEL DRESSING 90 GM TUBE TP SCH (09:00)
[2019-10-03] MEDS: PANTOPRAZOLE 40 MG/PACK PACK GT SCH ×2 (09:00→21:04)
[2019-10-03] MEDS: DAKINS QUARTER STRENGTH (0.125%) 480 ML BOTTLE TOP SCH (09:00)
[2019-10-03] MEDS: CALCIUM CARB 250MG /VITAMIN D 1 UDTAB GT SCH (09:00)
[2019-10-03] MEDS: MEROPENEM 500 MG in IV NS 0.9% 50 ML IV SCH ×2 (11:08→21:04)
[2019-10-03] MEDS: METOCLOPRAMIDE HCL 10 MG/2 ML VIAL IV SCH ×3 (11:08→17:39)
[2019-10-03 12:00] VITALS: BP 110/65
[2019-10-03] MEDS: ASCORBIC ACID 500 MG TABLET GT SCH (12:09)
[2019-10-03] MEDS: BICALUTAMIDE 50 MG TABLET GT SCH (12:09)
[2019-10-03] MEDS: ZINC SULFATE 220 MG CAPSULE GT SCH (12:09)
[2019-10-03] MEDS: METOPROLOL TARTRATE 25 MG TABLET PO SCH ×2 (12:09→21:05)
[2019-10-03] MEDS: VALPROIC ACID 250 MG/5 ML UDC GT SCH ×2 (13:00→21:04)
[2019-10-03 16:00] VITALS: BP 104/65
--- NOTE | 2019-10-03 16:00 | NUR ---
RN NOTE SPOKE WITH DR GODDARD REGARDING G TUBE LEAKAGE, HE ORDERED NPO MIDNIGHT, AND CONSENT FOR EGD WITH PEG TUBE PLACEMENT PROCEDURE MOST LIKELY FOR TOMORROW, WILL OBTAIN CONSENT.
[2019-10-03] MEDS: IV D5/0.45 NACL 1,000 ML IV PRN (17:39)
--- NOTE | 2019-10-03 19:45 | NUR ---
RN NOTE RECEIVED PT IN BED IN SEMI MORRIS'S POSITION. OBTUNDED. PT ON MECHANICAL VENTILATOR AND TOLERATING WELL. NO INDICATIONS OF RESPIRATORY DISTRESS. TRACH MID LINE AND IN PLACE. NO INDICATIONS OF PAIN OR DISCOMFORT. PARK CATHETER PATENT AND IN PLACE DRAINING YELLOW URINE WITH SEDIMENTS. GT SITE SLIGHTLY LEAKING. WILL BE PUT ON NPO AT MIDNIGHT PER MD DUE TO PENDING PEG PLACEMENT. ON TELE MONITOR SINUS TACHYCARDIA HR 94. CURRENTLY ON D5 1/2 NS @75ML/HOUR AND WITHOUT SIGNS OF COMPLICATIONS AT IV SITE. SAFETY MEASURES IN PLACE. MALENA LIGHT WITHIN REACH. WILL MONITOR.
[2019-10-03 20:00] VITALS: BP 132/74
[2019-10-03] MEDS: TAMSULOSIN 0.4 MG CAP.SR.24H GT SCH (21:04)
[2019-10-03] MEDS: INSULIN GLARGINE, 100 UNIT/ML CARTRIDGE SQ SCH (22:00)
--- NOTE | 2019-10-03 22:19 | NUR ---
RN NOTE LANTUS 12 UNITS WITHELD. BLOOD SUGAR CURRENTLY 77. PT ALSO NPO FOR SURGERY. AWARE.
[2019-10-04] VITALS: BP 100/66
[2019-10-04] MEDS: BLOOD SUGAR DIAGNOSTIC 1 EACH STRIP IN SCH ×4 (00:24→18:04)
[2019-10-04 04:00] VITALS: BP 115/70
[2019-10-04] MEDS: VALPROIC ACID 250 MG/5 ML UDC GT SCH ×3 (04:02→21:10)
[2019-10-04] MEDS: IV D5/0.45 NACL 1,000 ML IV PRN ×2 (06:37→20:01)
--- NOTE | 2019-10-04 07:09 | NUR ---
RN CLOSING NOTE PT IN BED IN SEMI MORRIS'S POSITION. PT IS OBTUNDED. ON MECHANICAL VENTILATOR AND TOLERATING WELL. TRACH MID LINE AND IN PLACE. NO INDICATIONS OF DISTRESS, PAIN OR DISCOMFORT. WITH PARK CATHETER PATENT AND IN PLACE DRAINING YELLOW URINE WITH SEDIMENTS. ALSO WITH NEPHROSTOMY BAG DRAINING CLEAR YELLOW DRAINAGE. ON TELE MONITOR. PT IS NPO. PT PENDING PEG PLACEMENT TODAY. CURRENTLY ON IVF D5 1/2NS @75ML/HOUR. SAFETY MEASURES IN PLACE. CALL LIGHT WITHIN REACH. ENDORSED TO MORNING SHIFT.
[2019-10-04 07:11] LABS: CALCIUM, SERUM 8.7 mg/dL (8.5-10.1); POTASSIUM 3.5 mmol/L (3.5-5.1)
[2019-10-04 07:14] LABS: BASOPHILS % (AUTO) 0.3 % (0.0-2.0); EOSINOPHILS % (AUTO) 3.3 % (0.0-6.0); HEMATOCRIT 26 % (39-51); HEMOGLOBIN 8.2 g/dL (13.5-17.5); LYMPHOCYTES # (AUTO) 3.1 /CMM (0.8-4.8); LYMPHOCYTES % (AUTO) 36.1 % (20.0-44.0); MEAN CORPUSCULAR HGB CONC 32 g/dl (31.0-36.0); MEAN CORPUSCULAR VOLUME 93 fL (80-96); MONOCYTES % (AUTO) 11.7 % (2.0-12.0); NEUTROPHILS # (AUTO) 4.2 /CMM (1.8-8.9); NEUTROPHILS % (AUTO) 48.6 % (43.0-81.0); PLATELET COUNT (AUTO) 385 /CMM (150-450); RED BLOOD CELL COUNT(AUTO) 2.76 MIL/uL (4.5-6.0); WHITE BLOOD COUNT (AUTO) 8.5 K/uL (4.3-11.0)
--- NOTE | 2019-10-04 07:15 | NUR ---
TONGUE AND GROOVE MACHINE FEEDER NOTES RECEIVED PT IN BED A/OX1 SCHEDULED FOR PEG PLACEMENT , NPO STATUES. NO DISTRESS AND DISCOMFORT NOTED AT THIS TIME. BED AT THE LOWEST POSITION LOCKED, CALL LIGHT WITHIN REACH.WILL CONTINUE TO MONITOR THE PATIENT.
[2019-10-04 08:00] VITALS: BP 120/70
[2019-10-04] MEDS: ZINC SULFATE 220 MG CAPSULE GT SCH (09:00)
[2019-10-04] MEDS: METOPROLOL TARTRATE 25 MG TABLET PO SCH ×2 (09:00→21:10)
[2019-10-04] MEDS: BICALUTAMIDE 50 MG TABLET GT SCH (09:00)
[2019-10-04] MEDS: CALCIUM CARB 250MG /VITAMIN D 1 UDTAB GT SCH (09:00)
[2019-10-04] MEDS: PANTOPRAZOLE 40 MG/PACK PACK GT SCH ×2 (09:00→21:10)
[2019-10-04] MEDS: ASCORBIC ACID 500 MG TABLET GT SCH (09:00)
[2019-10-04] MEDS: MEROPENEM 500 MG in IV NS 0.9% 50 ML IV SCH ×2 (09:35→20:00)
[2019-10-04] MEDS: METOCLOPRAMIDE HCL 10 MG/2 ML VIAL IV SCH ×3 (09:35→17:13)
[2019-10-04] MEDS: DAKINS QUARTER STRENGTH (0.125%) 480 ML BOTTLE TOP SCH (09:44)
[2019-10-04] MEDS: HYDROGEL DRESSING 90 GM TUBE TP SCH (09:44)
[2019-10-04] MEDS: CHLORHEXIDINE GLUCONATE 15 ML UDC MM SCH ×2 (10:33→17:13)
[2019-10-04 12:00] VITALS: BP_SYST 109; BP_SYST 123; BP_DIAS 62; BP_DIAS 70
--- NOTE | 2019-10-04 13:52 | NUR ---
CIRCULATION SUPERVISOR NOTES CONTACTED DR GODDARD VIA PHONE. PER MD IT IS OK TO GIVE MEDS VIA G TUBE TO PATIENT . PATIENT NPO EXCEPT MEDS.
[2019-10-04 16:00] VITALS: BP 123/70
--- NOTE | 2019-10-04 17:58 | NUR ---
MALE MODEL NOTES BLOOD SUGAR 76 MG /DL NO INSULIN GIVEN.
--- NOTE | 2019-10-04 19:41 | NUR ---
MS RN NOTES PATIENT IN BED A/O X 1. NO SOB OR DISTRESS NOTED AT THIS TIME. ALL NEEDS ATTENDED. PATIENT STILL NPO. BED AT THE LOWEST POSITION LOCKED, CALL LIGHT WITHIN REACH . ENDORSED TO SURVEILLANCE SYSTEMS ENGINEER NURSE FOR LIZETH.
[2019-10-04 20:00] VITALS: BP 131/84
--- NOTE | 2019-10-04 20:09 | NUR ---
RN NOTE SPOKE TO NITZA ISIDRO. PER , PT IS NPO BUT OKAY TO GIVE MEDS VIA GT. PT TO HAVE PEG PLACEMENT TOMORROW. CONSENTS SIGNED.
[2019-10-04] MEDS: TAMSULOSIN 0.4 MG CAP.SR.24H GT SCH (21:10)
[2019-10-04] MEDS: INSULIN GLARGINE, 100 UNIT/ML CARTRIDGE SQ SCH (21:46)
--- NOTE | 2019-10-04 21:46 | NUR ---
RN NOTE LANTUS 12 UNITS SUBQ AT 2200 HELD DUE TO BLOOD GLUCOSE 74. PT ALSO NPO FOR SURGERY.
[2019-10-05] VITALS: BP 138/84
[2019-10-05] MEDS: BLOOD SUGAR DIAGNOSTIC 1 EACH STRIP IN SCH ×4 (00:15→17:42)
[2019-10-05 04:00] VITALS: BP 120/80
[2019-10-05] MEDS: VALPROIC ACID 250 MG/5 ML UDC GT SCH ×3 (05:25→21:21)
[2019-10-05 06:13] LABS: BASOPHILS # (AUTO) 0.1 /CMM (0.0-0.2); BASOPHILS % (AUTO) 0.5 % (0.0-2.0); CALCIUM, SERUM 8.5 mg/dL (8.5-10.1); EOSINOPHILS % (AUTO) 3.7 % (0.0-6.0); HEMATOCRIT 23 % (39-51); HEMOGLOBIN 7.5 g/dL (13.5-17.5); LYMPHOCYTES # (AUTO) 3.9 /CMM (0.8-4.8); LYMPHOCYTES % (AUTO) 35.6 % (20.0-44.0); MEAN CORPUSCULAR HGB CONC 33 g/dl (31.0-36.0); MEAN CORPUSCULAR VOLUME 92 fL (80-96); MONOCYTES # (AUTO) 1.2 /CMM (0.1-1.30); MONOCYTES % (AUTO) 11.1 % (2.0-12.0); NEUTROPHILS # (AUTO) 5.3 /CMM (1.8-8.9); NEUTROPHILS % (AUTO) 49.1 % (43.0-81.0); PHOSPHORUS 3.4 mg/dL (2.5-4.9); PLATELET COUNT (AUTO) 369 /CMM (150-450); POTASSIUM 3.5 mmol/L (3.5-5.1); RED BLOOD CELL COUNT(AUTO) 2.52 MIL/uL (4.5-6.0); WHITE BLOOD COUNT (AUTO) 10.9 K/uL (4.3-11.0)
[2019-10-05 06:25] LABS: MAGNESIUM 1.2 mg/dL (1.8-2.4)
--- NOTE | 2019-10-05 06:38 | NUR ---
RN NOTE RECEIVED ALERT FOR MG OF 1.2. PAGED DR. [place].
--- NOTE | 2019-10-05 07:08 | NUR ---
RN NOTE MIROSLAVA ISIDRO CALLED BACK WITH ORDER TO ADMINISTER MAGNESIUM 1GM IV X 4 BAGS, ORDER NOTED AND CARRIED OUT.
--- NOTE | 2019-10-05 07:27 | NUR ---
RN CLOSING NOTE PT OBTUNDED IN BED. ON MECHANICAL VENTILATOR AND TOLERATING WELL. NO INDICATIONS OF PAIN OR DISCOMFORT. PT IS NPO EXCEPT FOR MEDS. PT PENDING PEG PLACEMENT TODAY. ON IVF D5W 1/2NS @75ML/ HOUR. WITH PARK CATHETER DRAINING YELLOW URINE WITH SEDIMENTS AND RIGHT NEPHROSTOMY BAD DRAINING CLEAR YELLOW URINE. CALL LIGHT WITHIN REACH, ENDORSED TO MORNING SHIFT.
[2019-10-05] MEDS ORDERED: Magnesium 1GM/D5W 100ML PREMIX 100 ML IV SCH ×2 (07:30→08:00)
--- NOTE | 2019-10-05 07:30 | NUR ---
NATURAL DEVELOPER OPENING NOTES Pt in bed, in semi fajardo's position. Obtunded, on mechanical ventilator and tolerating well. Trach mid line and in place. In no acute distress , pain or discomfort noted. With holm catheter in place, patent and intact draining yellow urine with sediments. With nephrostomy bag draining clear yellow drainage. On tele monitor.Pt is npo status , currently on IVF D5 1/2 ns @75 ml/hr. Pending for peg placement today
--- NOTE | 2019-10-05 07:55 | NUR ---
RT Pt received trached on mechanical ventilation with noted settings. Pt is awake but does not follow commands. Vent is plugged into red outlet. No SOB or respiratory distress noted. Addendum: 10/05/19 at 0903 by GABI JOY RT Amended: Links added.
[2019-10-05 08:00] VITALS: BP 124/74
[2019-10-05] MEDS: Magnesium 1GM/D5W 100ML PREMIX 100 ML IV SCH ×4 (08:19→13:38)
[2019-10-05] MEDS: PANTOPRAZOLE 40 MG/PACK PACK GT SCH ×2 (08:20→21:21)
[2019-10-05] MEDS: ASCORBIC ACID 500 MG TABLET GT SCH (08:20)
[2019-10-05] MEDS: CALCIUM CARB 250MG /VITAMIN D 1 UDTAB GT SCH (08:20)
[2019-10-05] MEDS: BICALUTAMIDE 50 MG TABLET GT SCH (08:20)
[2019-10-05] MEDS: ZINC SULFATE 220 MG CAPSULE GT SCH (08:20)
[2019-10-05] MEDS: METOPROLOL TARTRATE 25 MG TABLET PO SCH ×2 (08:21→21:21)
[2019-10-05] MEDS: METOCLOPRAMIDE HCL 10 MG/2 ML VIAL IV SCH ×3 (08:21→16:03)
[2019-10-05] MEDS: MEROPENEM 500 MG in IV NS 0.9% 50 ML IV SCH ×2 (08:34→21:21)
[2019-10-05] MEDS: CHLORHEXIDINE GLUCONATE 15 ML UDC MM SCH ×2 (08:46→16:03)
[2019-10-05] MEDS: HYDROGEL DRESSING 90 GM TUBE TP SCH (08:47)
[2019-10-05] MEDS: DAKINS QUARTER STRENGTH (0.125%) 480 ML BOTTLE TOP SCH (08:47)
[2019-10-05] MEDS: IV D5/0.45 NACL 1,000 ML IV PRN (09:28)
[2019-10-05 12:00] VITALS: BP 118/77
--- NOTE | 2019-10-05 14:46 | NUR ---
STRUCTURER NOTES Called OR and was informed that surgery cancelled today and reschedule it tomorrow 10/06/2019 after 9 am.
[2019-10-05] MEDS: EPOETIN ALFA (4000 UNIT) 4,000 UNIT/ML VIAL SQ SCH (15:51)
[2019-10-05 16:00] VITALS: BP 123/79
--- NOTE | 2019-10-05 18:58 | NUR ---
MEDICAL BILLING MANAGER CLOSING NOTES Pt in bed, obtunded. No respiratory distress noted within the shift. On tele monitor with NSR noted. All nursing needs attended. Blood sugar checked as ordered, no coverage of Insulin required per sliding scale ordered. Afebrile the whole shift. Peg placement tomorrow after 9am. Will endorse to the next shift.
--- NOTE | 2019-10-05 19:57 | NUR ---
SLAB DEPILER OPERATOR OPENING NOTE RECEIVED PATIENT NON VERBAL, OBTUNDED. PATIENT ON VENT TOLERATING AT AC 18, TV 500, FI02 50% AND PEEP 5 WITH A SHILEY #10. PATIENT ON MONITOR SR ON THE 90S. PATIENT HAS PARK AND NEPHROSTOMY ON THE RT SIDE BOT PATENT WITH NO SIGN OF OBSTRUCTION. PATIENT HAS RT FOREARM #22 WITH D5 1/2 NS @ 75CC AND LT FA #22 S/L SHOWING SOME INFILTRATION. ALL SAFETY PRECATUIONS HAVE BEEN APPLIED. WILL CONTINUE TO MONITOR PATIENT THROUGHOUT SHIFT.
[2019-10-05 20:00] VITALS: BP 129/80
[2019-10-05] MEDS: INSULIN GLARGINE, 100 UNIT/ML CARTRIDGE SQ SCH (22:00)
[2019-10-05] MEDS: TAMSULOSIN 0.4 MG CAP.SR.24H GT SCH (22:40)
--- NOTE | 2019-10-05 22:49 | NUR ---
RN NOTE HELD INSULIN LANTUS AT 2200. CHECKED BLOOD SUGAR WAS AT 87 AND PATIENT IS NPO.
[2019-10-06] VITALS: BP 127/80
[2019-10-06] MEDS: BLOOD SUGAR DIAGNOSTIC 1 EACH STRIP IN SCH ×4 (00:22→18:09)
[2019-10-06] MEDS: IV D5/0.45 NACL 1,000 ML IV PRN ×2 (00:22→14:05)
--- NOTE | 2019-10-06 03:37 | NUR ---
RT NOTE Pt rec'd trached on [facility] vent on AC mode. Pt shows no signs of resp distress or sob. sx'd for thick mod amt of pale yellow secretions. Alarms are set and audible. Vent plugged into red outlet. Ambu bag bedside. Will continue to monitor closely. Addendum: 10/06/19 at 0338 by JHONATHAN POLLARD RT Amended: Links added.
[2019-10-06 04:00] VITALS: BP 153/78
[2019-10-06] MEDS: VALPROIC ACID 250 MG/5 ML UDC GT SCH ×3 (06:17→21:14)
[2019-10-06 06:21] LABS: BASOPHILS % (AUTO) 0.3 % (0.0-2.0); EOSINOPHILS % (AUTO) 3.4 % (0.0-6.0); HEMATOCRIT 25 % (39-51); LYMPHOCYTES # (AUTO) 3.5 /CMM (0.8-4.8); LYMPHOCYTES % (AUTO) 31.8 % (20.0-44.0); MEAN CORPUSCULAR HGB CONC 32 g/dl (31.0-36.0); MEAN CORPUSCULAR VOLUME 93 fL (80-96); MONOCYTES # (AUTO) 1.2 /CMM (0.1-1.30); MONOCYTES % (AUTO) 11.1 % (2.0-12.0); NEUTROPHILS # (AUTO) 5.9 /CMM (1.8-8.9); NEUTROPHILS % (AUTO) 53.4 % (43.0-81.0); PLATELET COUNT (AUTO) 348 /CMM (150-450); RED BLOOD CELL COUNT(AUTO) 2.69 MIL/uL (4.5-6.0); WHITE BLOOD COUNT (AUTO) 11.1 K/uL (4.3-11.0)
[2019-10-06 06:36] LABS: ALBUMIN 1.6 g/dL (3.4-5.0); BILIRUBIN,TOTAL 0.4 mg/dL (0.2-1.0); CALCIUM, SERUM 8.5 mg/dL (8.5-10.1); MAGNESIUM 1.5 mg/dL (1.8-2.4); PHOSPHORUS 3.3 mg/dL (2.5-4.9); POTASSIUM 3.4 mmol/L (3.5-5.1); TOTAL PROTEIN, SERUM 7.6 g/dL (6.4-8.2)
--- NOTE | 2019-10-06 07:23 | NUR ---
RN NOTE: Received patient in bed, obtunded, on mechanical ventilator dependent and was saturating 100% with current vent setting. Breathing evenly and unlabored, Kept NPO after midnight due to the EGD with peg placement with Dr. Sebastian. (R) upper arm 22G IV site noted patent and intact with IVF D5 1/2 NS @75ml/hr. Sinus rhythm on the lunchroom monitor. On contact isolation for ESBL urine. Locke catheter in placed with yellow urine draining to gravity. A (R) nephrostomy tube was also noted in placed with yellow urine. On KCI mattress for skin management. GT was clamped. No drainage noted at this time. Bed alarmed and locked at all times. Call light within reach.
--- NOTE | 2019-10-06 07:43 | NUR ---
RN CLOSING NOTE PATIENT IN BED WITH NO SIGN OF ANY DISTRESS. ALL SAFETY PRECATUIONS APPLIED. ENDORSED PATIENT TO MORNING SHIFT NURSE FOR LIZETH.
[2019-10-06 08:00] VITALS: BP 134/82
[2019-10-06] MEDS: Magnesium 1GM/D5W 100ML PREMIX 100 ML IV SCH ×2 (08:09→09:50)
[2019-10-06] MEDS: MEROPENEM 500 MG in IV NS 0.9% 50 ML IV SCH (09:13)
[2019-10-06] MEDS: METOCLOPRAMIDE HCL 10 MG/2 ML VIAL IV SCH ×3 (09:17→16:31)
[2019-10-06] MEDS: CHLORHEXIDINE GLUCONATE 15 ML UDC MM SCH ×2 (09:17→16:32)
[2019-10-06] MEDS: HYDROGEL DRESSING 90 GM TUBE TP SCH (09:18)
[2019-10-06] MEDS: DAKINS QUARTER STRENGTH (0.125%) 480 ML BOTTLE TOP SCH (09:18)
[2019-10-06] MEDS: PANTOPRAZOLE 40 MG/PACK PACK GT SCH ×2 (09:30→21:14)
[2019-10-06] MEDS: ZINC SULFATE 220 MG CAPSULE GT SCH (09:30)
[2019-10-06] MEDS: CALCIUM CARB 250MG /VITAMIN D 1 UDTAB GT SCH (09:30)
[2019-10-06] MEDS: METOPROLOL TARTRATE 25 MG TABLET PO SCH ×2 (09:30→21:14)
[2019-10-06] MEDS: ASCORBIC ACID 500 MG TABLET GT SCH (09:30)
[2019-10-06] MEDS: BICALUTAMIDE 50 MG TABLET GT SCH (09:30)
[2019-10-06] MEDS ORDERED: POTASSIUM CHLORIDE 20 MEQ POWDER PACKET NG SCH (10:00)
[2019-10-06] MEDS: POTASSIUM CL. PREMIX PERIPHER. 50 ML IV SCH ×2 (10:46→11:59)
--- NOTE | 2019-10-06 11:02 | NUR ---
RN NOTE: Called and spoke with Saba laborer car barn and informed him about the STAT PT/PTT order or the patient. Per laborer car barn, he will come and draw the blood.
[2019-10-06 12:00] VITALS: BP 143/86
--- NOTE | 2019-10-06 12:00 | NUR ---
RN NOTE: Patient's GT water flushing q6hr was held due to patient's pending EGD with peg placement today with Dr. Sebastian. All GT meds held as well.
--- NOTE | 2019-10-06 13:26 | NUR ---
RN NOTE: Dr. Sebastian was at the bedside and was doing the EGD with peg placement.
--- NOTE | 2019-10-06 13:50 | NUR ---
RN NOTE: Dr. Sebastian ordered that the new GT site is ok to start for GT feeding starting at [address] Harshad Bautista was made aware and he was ok with the dietary recommendation for the GT feeding. New tube feeding ordered, noted and carried out.
[2019-10-06] MEDS ORDERED: GLUCERNA 1.2 1,000 ML BOTTLE NG PRN (14:00)
[2019-10-06 16:00] VITALS: BP 134/79
[2019-10-06] MEDS: MEROPENEM 500 MG in IV NS 0.9% 100 ML IV SCH (16:32)
--- NOTE | 2019-10-06 17:30 | NUR ---
RT END OF THE SHIFT REPORT Pt. rec. @0700 AM TRACH'D SOLITARIO# 10 on ventilator with noted VENT settings. Vent alarms are set and audible with AMBU bag by the bedside. FIRE SUPPORT MAN cuff pressure done, HME changed. Vent is plugged into red outlet. No Respiratory distress noted T/O day. bilaterally rhonchi b/s and sux'd for moderate amount of white/trevino secretions, equal chest rise noted. report will pass to PM shift. Addendum: 10/06/19 at 1732 by GEN MTZ RT Amended: Links added.
--- NOTE | 2019-10-06 17:58 | NUR ---
RN NOTE: Called and spoke with Harshad Bautista DNP regarding the patient's old GT site s/p sutured by Dr. Sebastian. But the new GT site was receiving GT feeding Glucerna 1.2 @20ml/hr and patient was tolerating it well with no leaking on the new GT site. Per Lorne Bautista DNP ok to continue the current GT feeding. And DC the IV fluid. Order noted and carried out.
--- NOTE | 2019-10-06 19:43 | NUR ---
TERRESTRIAL ECOLOGIST OPENING NOTE RECEIVED PATIENT A/O X2 WITH SISTER AT BEDSIDE. PATIENT IS ON VENTILATOR WITH NO SIGN OF ANY DISTRESS. TOLERATING VENT AT AC 12, TV 500, FI02 50% AND PEEP OF 5 WITH A SHILEY #10. IV ACCESS ON THE LT WRIST AND RT MIDLINE. PATENT AND FLUSHING. GGTUBE CLAMPED. ALL SAFETY PRECAUTIONS HAVE BEEN APPLIED WILL CONTINUE TO MONITOR PATIENT. Addendum: 10/06/19 at 1954 by VIDHI SALDAÑA RN PATIENT IN A/O X 1. RFA #22 PATENT AND FLUSHING. GTUBE FEEDING AT 20CC/HR TOLERATING WELL WITH 40CC OF RESIDUAL.
[2019-10-06 20:00] VITALS: BP 133/80
--- NOTE | 2019-10-06 20:00 | NUR ---
RN NOTE: Bedside report was given to COREY Mcgraw for continuity of care. Patient remained on GT feeding Glucerna 1.2 @ 20ml/hr and was tolerating well.
[2019-10-06] MEDS: INSULIN GLARGINE, 100 UNIT/ML CARTRIDGE SQ SCH (22:00)
[2019-10-06] MEDS: TAMSULOSIN 0.4 MG CAP.SR.24H GT SCH (22:30)
--- NOTE | 2019-10-06 22:41 | NUR ---
RN NOTE HELD LANTUS 12 UNIT. BLOOD SUGAR IS AT 71.
[2019-10-07] VITALS: BP 144/90
[2019-10-07] MEDS: BLOOD SUGAR DIAGNOSTIC 1 EACH STRIP IN SCH ×3 (00:12→12:11)
[2019-10-07] MEDS: MEROPENEM 500 MG in IV NS 0.9% 100 ML IV SCH ×2 (00:12→08:31)
[2019-10-07 04:00] VITALS: BP 138/68
[2019-10-07] MEDS: VALPROIC ACID 250 MG/5 ML UDC GT SCH ×2 (05:25→13:27)
--- NOTE | 2019-10-07 07:25 | NUR ---
RN OPENING NOTES Received pt in bed obtunded. On ventilator with no signs of any distress. IV access on the RFA #22, patent , intact with no signs of infiltration. With on going feeding of Glucerna 1.2 @40 cc/hr, tolerating well with 50 cc of residual. Nephrostomy bag with yellow color out draining well and holm catheter intact , draining well via gravity. Will continue to monitor.
[2019-10-07 08:00] VITALS: BP 117/69
[2019-10-07] MEDS: ZINC SULFATE 220 MG CAPSULE GT SCH (08:28)
[2019-10-07] MEDS: METOPROLOL TARTRATE 25 MG TABLET PO SCH (08:28)
[2019-10-07] MEDS: METOCLOPRAMIDE HCL 10 MG/2 ML VIAL IV SCH ×3 (08:28→17:20)
[2019-10-07] MEDS: ASCORBIC ACID 500 MG TABLET GT SCH (08:28)
[2019-10-07] MEDS: PANTOPRAZOLE 40 MG/PACK PACK GT SCH (08:28)
[2019-10-07] MEDS: CALCIUM CARB 250MG /VITAMIN D 1 UDTAB GT SCH (08:31)
[2019-10-07] MEDS: BICALUTAMIDE 50 MG TABLET GT SCH (08:31)
[2019-10-07] MEDS: CHLORHEXIDINE GLUCONATE 15 ML UDC MM SCH ×2 (08:32→17:20)
[2019-10-07] MEDS: HYDROGEL DRESSING 90 GM TUBE TP SCH (08:58)
[2019-10-07] MEDS: DAKINS QUARTER STRENGTH (0.125%) 480 ML BOTTLE TOP SCH (08:58)
[2019-10-07 12:00] VITALS: BP 104/63
--- NOTE | 2019-10-07 12:04 | NUR ---
SENIOR CONTRACTS ADMINISTRATOR NOTE PATIENT IN BED WITH NO SIGN OF ANY DISTRESS. TOLERATING VENT. VENT PLUGGED INTO RED OUTLETS. ALL SAFETY PRECAUTIONS APPLIED. ENDORSED PATIENT TO MORNING SHIFT NURSE FOR LIZETH.
[2019-10-07] MEDS: EPOETIN ALFA (4000 UNIT) 4,000 UNIT/ML VIAL SQ SCH (15:24)
[2019-10-07 16:00] VITALS: BP 118/76
--- NOTE | 2019-10-07 17:44 | NUR ---
POSTPARTUM RN NOTES Pt in bed, resting comfortably. All vital signs stable. No sob noted. Tolerating well with the gtube feeding @50cc/hr. All needs met. Called [facility] and gave report to Eyad. Left a message to responsible democrat Sabrina. Patient medically stable at the moment. Picked up by ambulance at 1730.
== END 2019-10-07 17:30 | DRG 720 ==
LOC: ER 17:32 → TELE-TD 20:30 → TELE1 09-29 08:51 → TELE-TD 09-30 03:48 → TELE1 10-03 10:00
PROVIDERS: ATTEND Nurse Practitioner Acute Care
DX: A41.9 Sepsis, unspecified organism (principal); N17.0 Acute kidney failure with tubular necrosis; G93.41 Metabolic encephalopathy; Z99.11 Dependence on respirator [ventilator] status; E43 Unspecified severe protein-calorie malnutrition; J18.9 Pneumonia, unspecified organism; J81.1 Chronic pulmonary edema; J96.10 Chronic respiratory failure, unspecified whether with hypoxia or hypercapnia; N18.4 Chronic kidney disease, stage 4 (severe); L89.814 Pressure ulcer of head, stage 4; J96.11 Chronic respiratory failure with hypoxia; R53.2 Functional quadriplegia; C61 Malignant neoplasm of prostate; N13.6 Pyonephrosis; E87.5 Hyperkalemia; E87.1 Hypo-osmolality and hyponatremia; I12.9 Hypertensive chronic kidney disease with stage 1 through stage 4 chronic kidney disease, or unspecified chronic kidney disease; N18.9 Chronic kidney disease, unspecified; N39.0 Urinary tract infection, site not specified; Y83.8 Other surgical procedures as the cause of abnormal reaction of the patient, or of later complication, without mention of misadventure at the time of the procedure; Y73.8 Miscellaneous gastroenterology and urology devices associated with adverse incidents, not elsewhere classified; Y92.129 Unspecified place in nursing home as the place of occurrence of the external cause; B96.20 Unspecified Escherichia coli [E. coli] as the cause of diseases classified elsewhere; B96.5 Pseudomonas (aeruginosa) (mallei) (pseudomallei) as the cause of diseases classified elsewhere; D63.8 Anemia in other chronic diseases classified elsewhere; E11.22 Type 2 diabetes mellitus with diabetic chronic kidney disease; E11.51 Type 2 diabetes mellitus with diabetic peripheral angiopathy without gangrene; E83.42 Hypomagnesemia; E87.0 Hyperosmolality and hypernatremia; G40.909 Epilepsy, unspecified, not intractable, without status epilepticus; N40.0 Benign prostatic hyperplasia without lower urinary tract symptoms; Z87.440 Personal history of urinary (tract) infections; Z93.0 Tracheostomy status; Z93.6 Other artificial openings of urinary tract status; Z87.01 Personal history of pneumonia (recurrent); Z74.01 Bed confinement status; R13.10 Dysphagia, unspecified; K21.9 Gastro-esophageal reflux disease without esophagitis; K80.20 Calculus of gallbladder without cholecystitis without obstruction; K94.23 Gastrostomy malfunction; Z16.12 Extended spectrum beta lactamase (ESBL) resistance; Z79.4 Long term (current) use of insulin; Z68.26 Body mass index [BMI] 26.0-26.9, adult; R65.20 Severe sepsis without septic shock; D68.69 Other thrombophilia; E88.09 Other disorders of plasma-protein metabolism, not elsewhere classified; M24.571 Contracture, right ankle; M24.572 Contracture, left ankle; J45.909 Unspecified asthma, uncomplicated; S01.00XA Unspecified open wound of scalp, initial encounter; X58.XXXA Exposure to other specified factors, initial encounter; Y93.9 Activity, unspecified; L97.519 Non-pressure chronic ulcer of other part of right foot with unspecified severity; L97.429 Non-pressure chronic ulcer of left heel and midfoot with unspecified severity; L97.529 Non-pressure chronic ulcer of other part of left foot with unspecified severity; C78.7 Secondary malignant neoplasm of liver and intrahepatic bile duct; C79.51 Secondary malignant neoplasm of bone; C78.00 Secondary malignant neoplasm of unspecified lung; K31.9 Disease of stomach and duodenum, unspecified
CPT/HCPCS: 31720; 36415; 43246; 71045-TC; 76770-TC; 80048-TC; 80053-TC; 80061-TC; 80076-TC; 81000-TC; 82550-TC; 82570-TC; 82962-TC; 83605-TC; 83735-TC; 83880; 83970; 84100-TC; 84155; 84155-TC; 84165; 84300-TC; 84443-TC; 84484-TC; 85025-TC; 85610-TC; 85730-TC; 87040-TC; 87070-TC; 87081-TC; 87086-TC; 87186-TC; 88305-TC; 94003-TC; 94760-TC; 94762-TC; 94799-TC; A4216; A6248; A6253; A6403; A7526; G0378; J0696; J0885; J1815; J1940; J2020; J2185; J2704; J2765; J3370; J3475; J3480; J3490; J7030; J7042; J7050; J7060; P9047

== ENCOUNTER 2019-10-12 10:55 | Emergency (ER) | payer MEDICAID ==
[~2019-10-12] VITALS: Ht 172.7 cm; Wt 73.9 kg
[~2019-10-12 10:55] MED LIST changes: +AMIN30LI2 GT; +CHLO473M5 MM; -FLUC100T8 PO; -Linezolid PO
[2019-10-12] MEDS ORDERED: DIATR MEGLU/DIATRIZOATE SODIUM 30 ML BOTTLE (GASTROGRAPHIN) ONE (11:15)
--- NOTE | 2019-10-12 11:16 | NUR ---
RT NOTE PT PLACED ON VENT PER MD ORDER. SETTINGS ENDORSED BY TRANSPORT RT AC 12 500 40% +5. ALARMS SET PER PROTOCOL AND AUDIBLE. VENT PLUGGED IN TO RED OUTLET. AMBU BAG AT BED SIDE. NO DISTRESS NOTED. AT MOMENT. PT HAS SOLITARIO 10 DCT CUFFED TRACH. CUFF INFLATED. TRACH TUBE MIDLINE AND SECURE. Addendum: 10/12/19 at 1119 by NAKITA JIMENEZ RT Amended: Links added.
--- NOTE | 2019-10-12 11:31 | NUR ---
XRAY AT BEDSIDE
--- NOTE | 2019-10-12 12:04 | NUR ---
[facility] ETA 1300 TRIP#[id number]
--- NOTE | 2019-10-12 13:03 | NUR ---
REPORT GIVEN TO CASSIE
[2019-10-12 13:26] VITALS: BP 104/87
--- NOTE | 2019-10-12 13:26 | NUR ---
REPORT GIVEN TO EMS, PT STABLE FOR TRANSFER
== END 2019-10-12 13:27 ==
LOC: ER 11:01
DX: K94.23 Gastrostomy malfunction (principal); E11.22 Type 2 diabetes mellitus with diabetic chronic kidney disease; I12.9 Hypertensive chronic kidney disease with stage 1 through stage 4 chronic kidney disease, or unspecified chronic kidney disease; N18.9 Chronic kidney disease, unspecified; K21.9 Gastro-esophageal reflux disease without esophagitis; G40.909 Epilepsy, unspecified, not intractable, without status epilepticus; Z79.899 Other long term (current) drug therapy; Z85.46 Personal history of malignant neoplasm of prostate; Z98.890 Other specified postprocedural states; Z79.4 Long term (current) use of insulin; Z79.01 Long term (current) use of anticoagulants
CPT/HCPCS: 43762; 74018; 99284; Q9963

== ENCOUNTER 2019-10-15 19:46 | Inpatient (IN) | payer MEDICAID ==
[~2019-10-15] VITALS: Ht 170.2 cm; Wt 108.0 kg
[2019-10-15 20:28] LABS: BASOPHILS % (AUTO) 0.2 % (0.0-2.0); EOSINOPHILS % (AUTO) 0.2 % (0.0-6.0); HEMATOCRIT 26 % (39-51); HEMOGLOBIN 7.5 g/dL (13.5-17.5); LYMPHOCYTES # (AUTO) 1.7 /CMM (0.8-4.8); LYMPHOCYTES % (AUTO) 8.3 % (20.0-44.0); MEAN CORPUSCULAR HGB CONC 30 g/dl (31.0-36.0); MEAN CORPUSCULAR VOLUME 99 fL (80-96); MONOCYTES # (AUTO) 3.2 /CMM (0.1-1.30); MONOCYTES % (AUTO) 15.5 % (2.0-12.0); NEUTROPHILS # (AUTO) 15.5 /CMM (1.8-8.9); NEUTROPHILS % (AUTO) 75.8 % (43.0-81.0); PLATELET COUNT (AUTO) 157 /CMM (150-450); RED BLOOD CELL COUNT(AUTO) 2.57 MIL/uL (4.5-6.0); WHITE BLOOD COUNT (AUTO) 20.4 K/uL (4.3-11.0)
[2019-10-15] MEDS ORDERED: VANCOMYCIN HCL 1 GM in IV D5W 260 ML IV ONE (20:30)
[2019-10-15] MEDS ORDERED: PIPERACILLIN /TAZOBACTAM 3.375 G in IV D5W 50 ML IV ONE (20:30)
[2019-10-15] MEDS ORDERED: IV NS 0.9% 1,000 ML BAG IV ONE ×3 (20:30→22:30)
[2019-10-15 20:57] LABS: ALANINE AMINOTRANSFERASE < 6 U/L (12-78); ALBUMIN 1.4 g/dL (3.4-5.0); ALKALINE PHOSPHATASE 296 U/L (46-116); ASPARTATE AMINOTRANSFERASE 28 U/L (15-37); BILIRUBIN,DIRECT 0.2 mg/dL (0.0-0.2); BILIRUBIN,TOTAL 0.4 mg/dL (0.2-1.0); CALCIUM, SERUM 9.8 mg/dL (8.5-10.1); CARBON DIOXIDE 13 mmol/L (21-32); CHLORIDE 115 mmol/L (98-107); CREATININE 5.2 mg/dL (0.6-1.3); GLUCOSE 70 mg/dL (74-106); POTASSIUM 5.9 mmol/L (3.5-5.1); SODIUM SERUM 147 mmol/L (136-145); UREA NITROGEN, BLOOD 97 mg/dL (7-18)
[2019-10-15] MEDS ORDERED: NOREPINEPHRINE 8 MG in IV D5W 500 ML IV ONE (21:00)
[2019-10-15] MEDS ORDERED: VANCOMYCIN 1 GM VIAL ONE (21:05)
[2019-10-15] MEDS ORDERED: PIPERACILLIN /TAZOBACTAM 3.375 G VIAL IV ONE (21:05)
[2019-10-15 21:39] LABS: APPEARANCE,URINE TURBID (CLEAR); BILIRUBIN,URINE SMALL (NEGATIVE); BLOOD, URINE LARGE Ery/uL (NEGATIVE); COLOR,URINE RED (YELLOW); KETONES,URINE TRACE (NEGATIVE); LEUKOCYTE ESTERASE ,URINE LARGE (NEGATIVE); NITRITE, URINE POSITIVE (NEGATIVE); PROTEIN,URINE >=300 mg/dl (NEGATIVE); UGLUCOSE NEGATIVE (NEGATIVE); UROBILINOGEN,URINE 0.2 EU/dL (0.2)
[2019-10-15 21:44] LABS: RBC,URINE 51-80 /HPF (0-2); WBC,URINE 51-80 /HPF (0-3)
[2019-10-15 21:45] LABS: BACTERIA,URINE Moderate /HPF (None Seen); MUCUS,URINE Few /LPF (None Seen); SQUAMOUS EPITHELIAL CELL,UR Few /HPF (None Seen)
[2019-10-15 22:01] LABS: BAND % (MANUAL) 5 % (0.0-5.0); LYMPHOCYTES % (MANUAL) 9 % (16-48); METAMYELOCYTES % 1 % (0-0); MONOCYTES % (MANUAL) 13 % (0-11.0); MYELOCYTES % 1 % (0-0); NEUTROPHILS % (MANUAL) 71 (42-76)
[2019-10-15] MEDS ORDERED: IV NS 0.9% 1,000 ML IV PRN (22:51)
[2019-10-15] MEDS ORDERED: MAG HYDROX/AL HYDROX/SIMETH 30 ML UDC PO PRN (23:00)
[2019-10-15] MEDS ORDERED: DEXTROSE 50%-WATER 50 ML DISP.SYRIN IV PRN (23:00)
[2019-10-15] MEDS ORDERED: ACETAMINOPHEN 325 MG TABLET PO PRN (23:00)
[2019-10-15] MEDS ORDERED: GLUCERNA 1.5 1,000 ML BOTTLE GT SCH (23:00)
[2019-10-15] MEDS ORDERED: Medication Not On Formulary EA (Ipratropium/Albuterol Sulfate (Duoneb 2.5-0.5 Mg/3 Ml So IH PRN (23:00)
[2019-10-15] MEDS ORDERED: MAGNESIUM HYDROXIDE 30 ML UDC PO PRN (23:00)
[2019-10-15] MEDS ORDERED: INSULIN REGULAR, HUMAN 100 UNIT/ML 3 ML VIAL SQ PRN (23:00)
[2019-10-15] MEDS ORDERED: CHLORHEXIDINE GLUCONATE 4% 118 ML BOTTLE TP SCH (23:00)
[2019-10-15] MEDS ORDERED: BISACODYL SUPP (10 MG) 10 MG/SUPP.RECT SUPP.RECT RC PRN (23:00)
[2019-10-15] MEDS ORDERED: ONDANSETRON HCL/PF 4 MG/2 ML VIAL IVP PRN (23:00)
[2019-10-15] MEDS ORDERED: NOREPINEPHRINE 4 MG/4 ML AMPUL IV ONE (23:47)
[2019-10-16] VITALS (93 sets, daily range): BP systolic 78–111; BP diastolic 41–67
[2019-10-16] MEDS ORDERED: MEROPENEM 500 MG VIAL IV ONE (00:23)
[2019-10-16] MEDS: MEROPENEM 500 MG in IV NS 0.9% 50 ML IV SCH ×3 (01:03→23:18)
[2019-10-16] MEDS ORDERED: Medication Not On Formulary EA (Ipratropium/Albuterol Sulfate (Duoneb 2.5-0.5 Mg/3 Ml So IH SCH (01:30)
[2019-10-16] MEDS: NOREPINEPHRINE 8 MG in IV D5W 500 ML IV PRN ×2 (01:55→10:15)
[2019-10-16 04:56] LABS: BASOPHILS % (AUTO) 0.2 % (0.0-2.0); EOSINOPHILS % (AUTO) 0.4 % (0.0-6.0); HEMATOCRIT 23 % (39-51); LYMPHOCYTES # (AUTO) 2.2 /CMM (0.8-4.8); LYMPHOCYTES % (AUTO) 10.4 % (20.0-44.0); MEAN CORPUSCULAR HGB CONC 30 g/dl (31.0-36.0); MEAN CORPUSCULAR VOLUME 96 fL (80-96); MONOCYTES # (AUTO) 3.1 /CMM (0.1-1.30); MONOCYTES % (AUTO) 14.7 % (2.0-12.0); NEUTROPHILS # (AUTO) 15.7 /CMM (1.8-8.9); NEUTROPHILS % (AUTO) 74.3 % (43.0-81.0); PLATELET COUNT (AUTO) 148 /CMM (150-450); RED BLOOD CELL COUNT(AUTO) 2.39 MIL/uL (4.5-6.0); WHITE BLOOD COUNT (AUTO) 21.1 K/uL (4.3-11.0)
[2019-10-16] MEDS ORDERED: VALPROIC ACID 250 MG/5 ML UDC GT SCH (05:00)
[2019-10-16 05:16] LABS: CALCIUM, SERUM 9.5 mg/dL (8.5-10.1); CREATININE 4.8 mg/dL (0.6-1.3); MAGNESIUM 1.9 mg/dL (1.8-2.4); PHOSPHORUS 2.6 mg/dL (2.5-4.9); POTASSIUM 5.2 mmol/L (3.5-5.1)
[2019-10-16 05:23] LABS: HEMOGLOBIN 7.1 g/dL (13.5-17.5)
[2019-10-16 05:35] LABS: THYROID STIMULATING HORMONE 4.546 uIU/mL (0.358-3.74)
[2019-10-16] MEDS ORDERED: IV NS 0.9% 1,000 ML IV ONE (06:00)
[2019-10-16 07:38] LABS: BAND % (MANUAL) 22 % (0.0-5.0); LYMPHOCYTES % (MANUAL) 12 % (16-48); METAMYELOCYTES % 1 % (0-0); MONOCYTES % (MANUAL) 15 % (0-11.0); NEUTROPHILS % (MANUAL) 50 (42-76)
[2019-10-16] MEDS: BLOOD SUGAR DIAGNOSTIC 1 EACH STRIP IN SCH ×4 (07:47→22:48)
[2019-10-16] MEDS ORDERED: IPRATROPIUM NEB FS 0.5 MG/2.5 ML AMPUL.NEB NEB PRN (08:00)
[2019-10-16] MEDS ORDERED: ALBUTEROL FS 2.5 MG/0.5 ML VIAL.NEB NEB PRN (08:00)
[2019-10-16] MEDS: BICALUTAMIDE 50 MG TABLET GT SCH (08:11)
[2019-10-16] MEDS: CHLORHEXIDINE GLUCONATE 15 ML UDC MM SCH ×2 (08:11→21:29)
[2019-10-16] MEDS: ZINC SULFATE 220 MG CAPSULE GT SCH (08:12)
[2019-10-16] MEDS: MULTIVIT W/MINERALS 1 TAB TABLET GT SCH (08:12)
[2019-10-16] MEDS: FAMOTIDINE (20 MG) 20 MG TABLET GT SCH ×2 (08:12→21:29)
[2019-10-16] MEDS: CALCIUM CARB 250MG /VITAMIN D 1 UDTAB GT SCH (08:12)
[2019-10-16] MEDS: ASCORBIC ACID 500 MG TABLET GT SCH (08:12)
[2019-10-16] MEDS: ACIDOPHILUS/BULGARICUS 1 EACH TAB.CHEW GT SCH ×3 (08:17→16:57)
[2019-10-16] MEDS ORDERED: FEE PK DOSING 1 MIN EA MC ONE (08:18)
[2019-10-16] MEDS: HEPARIN SODIUM, PORCINE 5000 UNITS/1 ML VIAL SQ SCH ×2 (08:18→21:00)
[2019-10-16] MEDS ORDERED: PANTOPRAZOLE 40 MG/PACK PACK GT SCH (09:00)
[2019-10-16] MEDS ORDERED: ARGININE/GLUTAMINE/CALCIUM BMB 1 EACH POWD.PACK GT SCH (09:00)
[2019-10-16] MEDS ORDERED: CHLORHEXIDINE GLUCONATE 473 ML BOTTLE MM SCH ×2 (09:00)
[2019-10-16] MEDS: PROSOURCE / PROSTAT (PYXIS) 30 ML UDC GT SCH (09:00)
[2019-10-16] MEDS ORDERED: HYDROGEL DRESSING 90 GM TUBE TP PRN (09:30)
[2019-10-16] MEDS ORDERED: NOREPINEPHRINE 16 MG in IV D5W 500 ML IV PRN (10:30)
[2019-10-16] MEDS: HYDROGEL DRESSING 90 GM TUBE TP SCH (11:15)
[2019-10-16] MEDS: Z GUARD REMEDY 2 OZ OINT TP PRN (11:16)
[2019-10-16] MEDS: DAKINS QUARTER STRENGTH (0.125%) 480 ML BOTTLE TOP SCH (11:16)
[2019-10-16] MEDS: IV D5/0.45 NACL 1,000 ML IV PRN (11:57)
[2019-10-16] MEDS: ALBUTEROL FS 2.5 MG/0.5 ML VIAL.NEB NEB SCH ×2 (13:30→20:01)
[2019-10-16] MEDS: IPRATROPIUM NEB FS 0.5 MG/2.5 ML AMPUL.NEB NEB SCH ×2 (13:30→20:01)
[2019-10-16] MEDS: VALPROATE 500 MG in IV D5W 100 ML IV SCH ×2 (14:01→21:29)
[2019-10-16] MEDS: PHENYLEPHRINE 40 MG in IV D5W 250 ML IV PRN ×2 (15:20→19:53)
[2019-10-16] MEDS: ACETAMINOPHEN 650 MG/SUPP.RECT RC PRN (16:07)
[2019-10-16] MEDS: PANTOPRAZOLE 40 MG VIAL IV SCH (16:57)
[2019-10-16 17:18] LABS: BASOPHILS % (AUTO) 0.2 % (0.0-2.0); EOSINOPHILS % (AUTO) 0.5 % (0.0-6.0); HEMATOCRIT 23 % (39-51); LYMPHOCYTES # (AUTO) 3.1 /CMM (0.8-4.8); LYMPHOCYTES % (AUTO) 15.9 % (20.0-44.0); MEAN CORPUSCULAR HGB CONC 31 g/dl (31.0-36.0); MEAN CORPUSCULAR VOLUME 96 fL (80-96); MONOCYTES # (AUTO) 3.4 /CMM (0.1-1.30); MONOCYTES % (AUTO) 17.7 % (2.0-12.0); NEUTROPHILS # (AUTO) 12.7 /CMM (1.8-8.9); NEUTROPHILS % (AUTO) 65.7 % (43.0-81.0); PLATELET COUNT (AUTO) 146 /CMM (150-450); RED BLOOD CELL COUNT(AUTO) 2.34 MIL/uL (4.5-6.0); WHITE BLOOD COUNT (AUTO) 19.3 K/uL (4.3-11.0)
[2019-10-16 20:03] LABS: BAND % (MANUAL) 5 % (0.0-5.0); LYMPHOCYTES % (MANUAL) 18 % (16-48); MONOCYTES % (MANUAL) 6 % (0-11.0); NEUTROPHILS % (MANUAL) 71 (42-76)
[2019-10-16] MEDS: PHENYLEPHRINE 80 MG in IV D5W 250 ML IV PRN (21:16)
[2019-10-16] MEDS ORDERED: INSULIN GLARGINE,BASAGLAR 100 UNIT/ML INSULN.PEN SQ SCH (22:00)
[2019-10-16] MEDS: TAMSULOSIN 0.4 MG CAP.SR.24H GT SCH (22:48)
[2019-10-16] MEDS: INSULIN GLARGINE, 100 UNIT/ML CARTRIDGE SQ SCH (23:15)
[2019-10-16] MEDS: EPOETIN ALFA (4000 UNIT) 4,000 UNIT/ML VIAL SQ SCH (23:19)
[2019-10-17] VITALS (95 sets, daily range): BP systolic 53–108; BP diastolic 41–77
[2019-10-17] MEDS: PHENYLEPHRINE 80 MG in IV D5W 250 ML IV PRN ×3 (01:54→16:04)
[2019-10-17] MEDS: IV D5/0.45 NACL 1,000 ML IV PRN ×2 (01:56→17:18)
[2019-10-17] MEDS: IPRATROPIUM NEB FS 0.5 MG/2.5 ML AMPUL.NEB NEB SCH ×4 (02:13→20:04)
[2019-10-17] MEDS: ALBUTEROL FS 2.5 MG/0.5 ML VIAL.NEB NEB SCH ×4 (02:13→20:04)
[2019-10-17] MEDS: VALPROATE 500 MG in IV D5W 100 ML IV SCH ×3 (04:52→21:30)
[2019-10-17] MEDS: PANTOPRAZOLE 40 MG VIAL IV SCH ×2 (04:52→16:34)
[2019-10-17 05:08] LABS: BASOPHILS % (AUTO) 0.2 % (0.0-2.0); EOSINOPHILS % (AUTO) 0.6 % (0.0-6.0); HEMATOCRIT 24 % (39-51); HEMOGLOBIN 7.3 g/dL (13.5-17.5); LYMPHOCYTES # (AUTO) 2.9 /CMM (0.8-4.8); LYMPHOCYTES % (AUTO) 11.6 % (20.0-44.0); MEAN CORPUSCULAR HGB CONC 31 g/dl (31.0-36.0); MEAN CORPUSCULAR VOLUME 96 fL (80-96); NEUTROPHILS # (AUTO) 17.8 /CMM (1.8-8.9); NEUTROPHILS % (AUTO) 71.6 % (43.0-81.0); PLATELET COUNT (AUTO) 126 /CMM (150-450); RED BLOOD CELL COUNT(AUTO) 2.46 MIL/uL (4.5-6.0); WHITE BLOOD COUNT (AUTO) 24.9 K/uL (4.3-11.0)
[2019-10-17 05:19] LABS: CALCIUM, SERUM 9.4 mg/dL (8.5-10.1); CREATININE 4.5 mg/dL (0.6-1.3); POTASSIUM 4.4 mmol/L (3.5-5.1)
[2019-10-17 05:43] LABS: BAND % (MANUAL) 16 % (0.0-5.0); EOSINOPHILS % (MANUAL) 2 % (0-4); LYMPHOCYTES % (MANUAL) 14 % (16-48); MONOCYTES % (MANUAL) 14 % (0-11.0); NEUTROPHILS % (MANUAL) 54 (42-76)
[2019-10-17] MEDS: BLOOD SUGAR DIAGNOSTIC 1 EACH STRIP IN SCH ×4 (07:50→21:44)
[2019-10-17] MEDS: HEPARIN SODIUM, PORCINE 5000 UNITS/1 ML VIAL SQ SCH ×2 (09:30→21:31)
[2019-10-17] MEDS: CALCIUM CARB 250MG /VITAMIN D 1 UDTAB GT SCH (09:31)
[2019-10-17] MEDS: FAMOTIDINE (20 MG) 20 MG TABLET GT SCH ×2 (09:31→21:30)
[2019-10-17] MEDS: MULTIVIT W/MINERALS 1 TAB TABLET GT SCH (09:31)
[2019-10-17] MEDS: ZINC SULFATE 220 MG CAPSULE GT SCH (09:31)
[2019-10-17] MEDS: ACIDOPHILUS/BULGARICUS 1 EACH TAB.CHEW GT SCH ×3 (09:31→16:35)
[2019-10-17] MEDS: ASCORBIC ACID 500 MG TABLET GT SCH (09:31)
[2019-10-17] MEDS: CHLORHEXIDINE GLUCONATE 15 ML UDC MM SCH ×2 (09:31→21:30)
[2019-10-17] MEDS: PROSOURCE / PROSTAT (PYXIS) 30 ML UDC GT SCH (09:32)
[2019-10-17] MEDS: HYDROGEL DRESSING 90 GM TUBE TP SCH ×2 (09:33)
[2019-10-17] MEDS: Z GUARD REMEDY 2 OZ OINT TP PRN (09:34)
[2019-10-17] MEDS: DAKINS QUARTER STRENGTH (0.125%) 480 ML BOTTLE TOP SCH (09:34)
[2019-10-17] MEDS: BICALUTAMIDE 50 MG TABLET GT SCH (09:36)
[2019-10-17] MEDS ORDERED: VANCOMYCIN 0.75 GM in IV D5W 250 ML IV SCH (10:00)
[2019-10-17] MEDS: MEROPENEM 500 MG in IV NS 0.9% 50 ML IV SCH ×2 (11:02→22:51)
[2019-10-17] MEDS: HYDROCORTISONE SOD SUCCINATE 100 MG/2 ML VIAL IV SCH ×3 (11:06→16:35)
[2019-10-17] MEDS: TAMSULOSIN 0.4 MG CAP.SR.24H GT SCH (21:30)
[2019-10-17] MEDS: INSULIN GLARGINE, 100 UNIT/ML CARTRIDGE SQ SCH (21:48)
[2019-10-18] VITALS (84 sets, daily range): BP systolic 84–119; BP diastolic 51–79
[2019-10-18] MEDS: ALBUTEROL FS 2.5 MG/0.5 ML VIAL.NEB NEB SCH ×4 (02:02→19:16)
[2019-10-18] MEDS: IPRATROPIUM NEB FS 0.5 MG/2.5 ML AMPUL.NEB NEB SCH ×4 (02:02→19:16)
[2019-10-18] MEDS: PANTOPRAZOLE 40 MG VIAL IV SCH (04:41)
[2019-10-18] MEDS: VALPROATE 500 MG in IV D5W 100 ML IV SCH ×3 (04:42→20:55)
[2019-10-18] MEDS: PHENYLEPHRINE 80 MG in IV D5W 250 ML IV PRN (05:17)
[2019-10-18 05:33] LABS: BASOPHILS % (AUTO) 0.2 % (0.0-2.0); HEMATOCRIT 24 % (39-51); HEMOGLOBIN 7.4 g/dL (13.5-17.5); LYMPHOCYTES # (AUTO) 1.6 /CMM (0.8-4.8); LYMPHOCYTES % (AUTO) 10.4 % (20.0-44.0); MEAN CORPUSCULAR HGB CONC 31 g/dl (31.0-36.0); MEAN CORPUSCULAR VOLUME 95 fL (80-96); MONOCYTES # (AUTO) 0.4 /CMM (0.1-1.30); MONOCYTES % (AUTO) 2.4 % (2.0-12.0); NEUTROPHILS # (AUTO) 13.1 /CMM (1.8-8.9); PLATELET COUNT (AUTO) 112 /CMM (150-450); RED BLOOD CELL COUNT(AUTO) 2.52 MIL/uL (4.5-6.0); WHITE BLOOD COUNT (AUTO) 15.1 K/uL (4.3-11.0)
[2019-10-18 05:43] LABS: CALCIUM, SERUM 9.2 mg/dL (8.5-10.1); CREATININE 3.8 mg/dL (0.6-1.3); POTASSIUM 4.3 mmol/L (3.5-5.1)
[2019-10-18] MEDS ORDERED: DEXTROSE 50%-WATER 50 ML DISP.SYRIN IV PRN (08:00)
[2019-10-18] MEDS: INSULIN REGULAR, HUMAN 100 UNIT/ML 3 ML VIAL SQ PRN ×3 (08:10→17:10)
[2019-10-18] MEDS: CHLORHEXIDINE GLUCONATE 15 ML UDC MM SCH ×2 (08:28→20:55)
[2019-10-18] MEDS: ACIDOPHILUS/BULGARICUS 1 EACH TAB.CHEW GT SCH ×3 (08:29→16:59)
[2019-10-18] MEDS: CALCIUM CARB 250MG /VITAMIN D 1 UDTAB GT SCH (08:31)
[2019-10-18] MEDS: ZINC SULFATE 220 MG CAPSULE GT SCH (08:31)
[2019-10-18] MEDS: HYDROCORTISONE SOD SUCCINATE 100 MG/2 ML VIAL IV SCH ×3 (08:31→17:05)
[2019-10-18] MEDS: ASCORBIC ACID 500 MG TABLET GT SCH (08:31)
[2019-10-18] MEDS: BICALUTAMIDE 50 MG TABLET GT SCH (08:31)
[2019-10-18] MEDS: PROSOURCE / PROSTAT (PYXIS) 30 ML UDC GT SCH (08:32)
[2019-10-18] MEDS: HYDROGEL DRESSING 90 GM TUBE TP SCH ×2 (08:32)
[2019-10-18] MEDS: DAKINS QUARTER STRENGTH (0.125%) 480 ML BOTTLE TOP SCH (08:32)
[2019-10-18] MEDS: MULTIVIT W/MINERALS 1 TAB TABLET GT SCH (08:32)
[2019-10-18] MEDS: Z GUARD REMEDY 2 OZ OINT TP PRN (08:33)
[2019-10-18] MEDS: HEPARIN SODIUM, PORCINE 5000 UNITS/1 ML VIAL SQ SCH (09:37)
[2019-10-18] MEDS: FAMOTIDINE (20 MG) 20 MG TABLET GT SCH ×2 (09:37→20:54)
[2019-10-18] MEDS: IV D5/0.45 NACL 1,000 ML IV PRN ×2 (09:39→21:05)
[2019-10-18] MEDS: MEROPENEM 500 MG in IV NS 0.9% 50 ML IV SCH ×2 (10:24→23:09)
[2019-10-18] MEDS: VANCOMYCIN 0.75 GM in IV D5W 250 ML IV SCH (10:55)
[2019-10-18] MEDS: BLOOD SUGAR DIAGNOSTIC 1 EACH STRIP IN SCH ×3 (11:49→23:46)
[2019-10-18] MEDS: TAMSULOSIN 0.4 MG CAP.SR.24H GT SCH (21:17)
[2019-10-18] MEDS: INSULIN GLARGINE, 100 UNIT/ML CARTRIDGE SQ SCH (22:00)
[2019-10-19] VITALS (39 sets, daily range): BP systolic 90–130; BP diastolic 59–83
[2019-10-19] MEDS: IPRATROPIUM NEB FS 0.5 MG/2.5 ML AMPUL.NEB NEB SCH ×4 (01:36→20:01)
[2019-10-19] MEDS: ALBUTEROL FS 2.5 MG/0.5 ML VIAL.NEB NEB SCH ×4 (01:36→20:01)
[2019-10-19] MEDS: VALPROATE 500 MG in IV D5W 100 ML IV SCH ×3 (04:30→20:13)
[2019-10-19 05:01] LABS: BASOPHILS % (AUTO) 0.1 % (0.0-2.0); HEMATOCRIT 22 % (39-51); LYMPHOCYTES # (AUTO) 0.9 /CMM (0.8-4.8); LYMPHOCYTES % (AUTO) 12.7 % (20.0-44.0); MEAN CORPUSCULAR HGB CONC 31 g/dl (31.0-36.0); MEAN CORPUSCULAR VOLUME 96 fL (80-96); MONOCYTES # (AUTO) 0.3 /CMM (0.1-1.30); MONOCYTES % (AUTO) 4.6 % (2.0-12.0); NEUTROPHILS # (AUTO) 5.8 /CMM (1.8-8.9); NEUTROPHILS % (AUTO) 82.6 % (43.0-81.0); PLATELET COUNT (AUTO) 86 /CMM (150-450); RED BLOOD CELL COUNT(AUTO) 2.31 MIL/uL (4.5-6.0); WHITE BLOOD COUNT (AUTO) 7.1 K/uL (4.3-11.0)
[2019-10-19 05:09] LABS: CALCIUM, SERUM 8.4 mg/dL (8.5-10.1); CREATININE 3.3 mg/dL (0.6-1.3); POTASSIUM 3.8 mmol/L (3.5-5.1)
[2019-10-19] MEDS: INSULIN REGULAR, HUMAN 100 UNIT/ML 3 ML VIAL SQ PRN (05:38)
[2019-10-19 05:39] LABS: HEMOGLOBIN 6.9 g/dL (13.5-17.5)
[2019-10-19] MEDS: BLOOD SUGAR DIAGNOSTIC 1 EACH STRIP IN SCH ×3 (05:40→17:20)
[2019-10-19 06:31] LABS: BAND % (MANUAL) 3 % (0.0-5.0); LYMPHOCYTES % (MANUAL) 10 % (16-48); MONOCYTES % (MANUAL) 6 % (0-11.0); NEUTROPHILS % (MANUAL) 81 (42-76)
[2019-10-19] MEDS: MULTIVIT W/MINERALS 1 TAB TABLET GT SCH (09:25)
[2019-10-19] MEDS: HYDROGEL DRESSING 90 GM TUBE TP SCH ×2 (09:25→09:26)
[2019-10-19] MEDS: CALCIUM CARB 250MG /VITAMIN D 1 UDTAB GT SCH (09:25)
[2019-10-19] MEDS: CHLORHEXIDINE GLUCONATE 15 ML UDC MM SCH ×2 (09:25→20:13)
[2019-10-19] MEDS: ASCORBIC ACID 500 MG TABLET GT SCH (09:25)
[2019-10-19] MEDS: ACIDOPHILUS/BULGARICUS 1 EACH TAB.CHEW GT SCH ×3 (09:25→17:20)
[2019-10-19] MEDS: ZINC SULFATE 220 MG CAPSULE GT SCH (09:25)
[2019-10-19] MEDS: FAMOTIDINE (20 MG) 20 MG TABLET GT SCH ×2 (09:25→20:13)
[2019-10-19] MEDS: PROSOURCE / PROSTAT (PYXIS) 30 ML UDC GT SCH (09:27)
[2019-10-19] MEDS: HYDROCORTISONE SOD SUCCINATE 100 MG/2 ML VIAL IV SCH ×3 (09:30→17:20)
[2019-10-19] MEDS: BICALUTAMIDE 50 MG TABLET GT SCH (09:38)
[2019-10-19] MEDS: DAKINS QUARTER STRENGTH (0.125%) 480 ML BOTTLE TOP SCH (09:50)
[2019-10-19] MEDS: IV D5/0.45 NACL 1,000 ML IV PRN (10:38)
[2019-10-19] MEDS: MEROPENEM 500 MG in IV NS 0.9% 50 ML IV SCH ×2 (11:38→22:40)
[2019-10-19] MEDS: VANCOMYCIN 0.75 GM in IV D5W 250 ML IV SCH (11:38)
[2019-10-19] MEDS ORDERED: LEVOFLOXACIN (250MG) 250 MG TABLET PO SCH (20:00)
[2019-10-19] MEDS: VORICONAZOLE 200 MG TABLET PO SCH (20:13)
[2019-10-19] MEDS: TAMSULOSIN 0.4 MG CAP.SR.24H GT SCH (22:40)
[2019-10-19] MEDS: EPOETIN ALFA (4000 UNIT) 4,000 UNIT/ML VIAL SQ SCH (22:42)
[2019-10-19] MEDS: INSULIN GLARGINE, 100 UNIT/ML CARTRIDGE SQ SCH (23:03)
[2019-10-20] VITALS (36 sets, daily range): BP systolic 93–120; BP diastolic 45–92
[2019-10-20] MEDS: BLOOD SUGAR DIAGNOSTIC 1 EACH STRIP IN SCH ×4 (01:09→17:57)
[2019-10-20] MEDS: ALBUTEROL FS 2.5 MG/0.5 ML VIAL.NEB NEB SCH ×4 (01:30→20:35)
[2019-10-20] MEDS: IPRATROPIUM NEB FS 0.5 MG/2.5 ML AMPUL.NEB NEB SCH ×4 (01:30→20:36)
[2019-10-20] MEDS: IV D5/0.45 NACL 1,000 ML IV PRN (03:19)
[2019-10-20 04:47] LABS: BASOPHILS % (AUTO) 0.1 % (0.0-2.0); HEMATOCRIT 29 % (39-51); HEMOGLOBIN 9.3 g/dL (13.5-17.5); LYMPHOCYTES # (AUTO) 0.9 /CMM (0.8-4.8); LYMPHOCYTES % (AUTO) 9.7 % (20.0-44.0); MEAN CORPUSCULAR HGB CONC 32 g/dl (31.0-36.0); MEAN CORPUSCULAR VOLUME 94 fL (80-96); MONOCYTES # (AUTO) 0.6 /CMM (0.1-1.30); MONOCYTES % (AUTO) 6.1 % (2.0-12.0); NEUTROPHILS # (AUTO) 8.2 /CMM (1.8-8.9); NEUTROPHILS % (AUTO) 84.1 % (43.0-81.0); PLATELET COUNT (AUTO) 83 /CMM (150-450); RED BLOOD CELL COUNT(AUTO) 3.13 MIL/uL (4.5-6.0); WHITE BLOOD COUNT (AUTO) 9.7 K/uL (4.3-11.0)
[2019-10-20 04:59] LABS: CALCIUM, SERUM 8.2 mg/dL (8.5-10.1); CREATININE 2.8 mg/dL (0.6-1.3); POTASSIUM 3.3 mmol/L (3.5-5.1)
[2019-10-20 05:24] LABS: LYMPHOCYTES % (MANUAL) 6 % (16-48); MONOCYTES % (MANUAL) 4 % (0-11.0); NEUTROPHILS % (MANUAL) 90 (42-76)
[2019-10-20] MEDS: VALPROATE 500 MG in IV D5W 100 ML IV SCH ×3 (05:31→21:29)
[2019-10-20] MEDS: HYDROCORTISONE SOD SUCCINATE 100 MG/2 ML VIAL IV SCH ×2 (08:45→16:23)
[2019-10-20] MEDS: CHLORHEXIDINE GLUCONATE 15 ML UDC MM SCH ×2 (08:45→21:29)
[2019-10-20] MEDS: BICALUTAMIDE 50 MG TABLET GT SCH (08:46)
[2019-10-20] MEDS: HYDROGEL DRESSING 90 GM TUBE TP SCH ×2 (08:46→08:47)
[2019-10-20] MEDS: DAKINS QUARTER STRENGTH (0.125%) 480 ML BOTTLE TOP SCH (08:46)
[2019-10-20] MEDS: PROSOURCE / PROSTAT (PYXIS) 30 ML UDC GT SCH (09:00)
[2019-10-20] MEDS: ACIDOPHILUS/BULGARICUS 1 EACH TAB.CHEW GT SCH ×3 (09:00→16:24)
[2019-10-20] MEDS: CALCIUM CARB 250MG /VITAMIN D 1 UDTAB GT SCH (09:00)
[2019-10-20] MEDS: MULTIVIT W/MINERALS 1 TAB TABLET GT SCH (09:00)
[2019-10-20] MEDS: ZINC SULFATE 220 MG CAPSULE GT SCH (09:00)
[2019-10-20] MEDS: FAMOTIDINE (20 MG) 20 MG TABLET GT SCH ×2 (09:00→21:00)
[2019-10-20] MEDS: VORICONAZOLE 200 MG TABLET PO SCH ×2 (09:00→21:00)
[2019-10-20] MEDS: ASCORBIC ACID 500 MG TABLET GT SCH (09:00)
[2019-10-20] MEDS ORDERED: TPN/PPN PER PHARMACY XX PRN (10:30)
[2019-10-20] MEDS: MEROPENEM 500 MG in IV NS 0.9% 50 ML IV SCH ×2 (10:43→23:49)
[2019-10-20] MEDS: POTASSIUM CL. PREMIX PERIPHER. 50 ML IV SCH ×4 (10:48→15:11)
[2019-10-20] MEDS ORDERED: IV D5/0.45 NACL 1,000 ML IV PRN (15:00)
[2019-10-20] MEDS ORDERED: TPN BAG #1 IV PRN ×6 (15:00)
[2019-10-20] MEDS: INSULIN GLARGINE, 100 UNIT/ML CARTRIDGE SQ SCH (21:44)
[2019-10-20] MEDS: TAMSULOSIN 0.4 MG CAP.SR.24H GT SCH (23:00)
[2019-10-21] VITALS: BP 111/67
[2019-10-21] MEDS: BLOOD SUGAR DIAGNOSTIC 1 EACH STRIP IN SCH ×4 (00:56→18:13)
[2019-10-21] MEDS: INSULIN REGULAR, HUMAN 100 UNIT/ML 3 ML VIAL SQ PRN (00:56)
[2019-10-21] MEDS: IPRATROPIUM NEB FS 0.5 MG/2.5 ML AMPUL.NEB NEB SCH ×4 (01:30→19:53)
[2019-10-21] MEDS: ALBUTEROL FS 2.5 MG/0.5 ML VIAL.NEB NEB SCH ×4 (01:30→19:53)
[2019-10-21 04:00] VITALS: BP 105/69
[2019-10-21] MEDS: VALPROATE 500 MG in IV D5W 100 ML IV SCH ×3 (04:27→21:36)
[2019-10-21 08:00] VITALS: BP_SYST 118; BP_SYST 126; BP_DIAS 67; BP_DIAS 76
[2019-10-21 08:04] LABS: BASOPHILS % (AUTO) 0.1 % (0.0-2.0); HEMATOCRIT 29 % (39-51); HEMOGLOBIN 9.1 g/dL (13.5-17.5); LYMPHOCYTES # (AUTO) 2.2 /CMM (0.8-4.8); LYMPHOCYTES % (AUTO) 16.2 % (20.0-44.0); MEAN CORPUSCULAR HGB CONC 32 g/dl (31.0-36.0); MEAN CORPUSCULAR VOLUME 93 fL (80-96); MONOCYTES # (AUTO) 1.5 /CMM (0.1-1.30); MONOCYTES % (AUTO) 11.2 % (2.0-12.0); NEUTROPHILS % (AUTO) 72.5 % (43.0-81.0); PLATELET COUNT (AUTO) 110 /CMM (150-450); RED BLOOD CELL COUNT(AUTO) 3.08 MIL/uL (4.5-6.0); WHITE BLOOD COUNT (AUTO) 13.8 K/uL (4.3-11.0)
[2019-10-21 08:12] LABS: CALCIUM, SERUM 7.7 mg/dL (8.5-10.1); CREATININE 2.2 mg/dL (0.6-1.3); POTASSIUM 3.7 mmol/L (3.5-5.1)
[2019-10-21] MEDS: HYDROCORTISONE SOD SUCCINATE 100 MG/2 ML VIAL IV SCH ×2 (08:25→17:19)
[2019-10-21] MEDS: CHLORHEXIDINE GLUCONATE 15 ML UDC MM SCH ×2 (08:25→21:35)
[2019-10-21] MEDS: PROSOURCE / PROSTAT (PYXIS) 30 ML UDC GT SCH (09:00)
[2019-10-21] MEDS: BICALUTAMIDE 50 MG TABLET GT SCH (09:00)
[2019-10-21] MEDS: CALCIUM CARB 250MG /VITAMIN D 1 UDTAB GT SCH (09:00)
[2019-10-21] MEDS: ASCORBIC ACID 500 MG TABLET GT SCH (09:00)
[2019-10-21] MEDS: ACIDOPHILUS/BULGARICUS 1 EACH TAB.CHEW GT SCH ×3 (09:00→17:00)
[2019-10-21] MEDS: MULTIVIT W/MINERALS 1 TAB TABLET GT SCH (09:00)
[2019-10-21] MEDS: FAMOTIDINE (20 MG) 20 MG TABLET GT SCH ×2 (09:00→21:00)
[2019-10-21] MEDS: ZINC SULFATE 220 MG CAPSULE GT SCH (09:00)
[2019-10-21] MEDS: VORICONAZOLE 200 MG TABLET PO SCH (09:00)
[2019-10-21] MEDS: DAKINS QUARTER STRENGTH (0.125%) 480 ML BOTTLE TOP SCH (09:20)
[2019-10-21] MEDS: HYDROGEL DRESSING 90 GM TUBE TP SCH ×2 (09:20→09:21)
[2019-10-21 10:49] LABS: MAGNESIUM 1.5 mg/dL (1.8-2.4); PHOSPHORUS 4.3 mg/dL (2.5-4.9)
[2019-10-21] MEDS: MEROPENEM 500 MG in IV NS 0.9% 50 ML IV SCH (11:05)
[2019-10-21 12:00] VITALS: BP 116/80
[2019-10-21] MEDS ORDERED: FEE TPN 1 MIN EA MC ONE (13:38)
[2019-10-21] MEDS ORDERED: TPN BAG #2 IV PRN ×7 (14:00)
[2019-10-21] MEDS ORDERED: SODIUM CHLORIDE IV PRN ×5 (14:00)
[2019-10-21] MEDS ORDERED: TPN ADDITIVES IV PRN ×5 (14:00)
[2019-10-21] MEDS ORDERED: [UNRECOGNIZED DRUG - OTHER] IV PRN ×5 (14:00)
[2019-10-21] MEDS ORDERED: POTASSIUM CHLORIDE IV PRN ×5 (14:00)
[2019-10-21 16:00] VITALS: BP 107/72
[2019-10-21] MEDS ORDERED: VANCOMYCIN 1 GM in IV NS 0.9% 250 ML IV SCH (19:00)
[2019-10-21 20:00] VITALS: BP 119/76
[2019-10-21] MEDS ORDERED: LEVOFLOXACIN 250 MG /D5W 50 ML 250 MG in PREMIX 1 EA IV SCH (20:00)
[2019-10-21] MEDS: MICAFUNGIN SODIUM 100 MG in IV NS 0.9% 100 ML IV SCH (20:55)
[2019-10-21] MEDS: INSULIN GLARGINE, 100 UNIT/ML CARTRIDGE SQ SCH (21:41)
[2019-10-21] MEDS: TAMSULOSIN 0.4 MG CAP.SR.24H GT SCH (22:00)
[2019-10-21] MEDS ORDERED: LEVOFLOXACIN 250 MG /D5W 50 ML 50 ML IV ONE (22:31)
[2019-10-21] MEDS: EPOETIN ALFA (4000 UNIT) 4,000 UNIT/ML VIAL SQ SCH (23:24)
[2019-10-22] VITALS: BP 124/79
[2019-10-22] MEDS: BLOOD SUGAR DIAGNOSTIC 1 EACH STRIP IN SCH ×4 (00:29→17:25)
[2019-10-22] MEDS: INSULIN REGULAR, HUMAN 100 UNIT/ML 3 ML VIAL SQ PRN ×2 (00:30→05:07)
[2019-10-22] MEDS: MEROPENEM 500 MG in IV NS 0.9% 50 ML IV SCH ×3 (00:44→23:27)
[2019-10-22] MEDS: IPRATROPIUM NEB FS 0.5 MG/2.5 ML AMPUL.NEB NEB SCH ×4 (01:34→20:30)
[2019-10-22] MEDS: ALBUTEROL FS 2.5 MG/0.5 ML VIAL.NEB NEB SCH ×4 (01:34→20:30)
[2019-10-22 04:00] VITALS: BP 126/77
[2019-10-22] MEDS: VALPROATE 500 MG in IV D5W 100 ML IV SCH ×3 (04:35→21:46)
[2019-10-22 06:43] LABS: BASOPHILS % (AUTO) 0.1 % (0.0-2.0); HEMATOCRIT 30 % (39-51); HEMOGLOBIN 9.2 g/dL (13.5-17.5); LYMPHOCYTES # (AUTO) 2.1 /CMM (0.8-4.8); LYMPHOCYTES % (AUTO) 13.9 % (20.0-44.0); MEAN CORPUSCULAR HGB CONC 31 g/dl (31.0-36.0); MEAN CORPUSCULAR VOLUME 95 fL (80-96); MONOCYTES # (AUTO) 1.7 /CMM (0.1-1.30); MONOCYTES % (AUTO) 10.8 % (2.0-12.0); NEUTROPHILS # (AUTO) 11.6 /CMM (1.8-8.9); NEUTROPHILS % (AUTO) 75.2 % (43.0-81.0); PLATELET COUNT (AUTO) 117 /CMM (150-450); RED BLOOD CELL COUNT(AUTO) 3.12 MIL/uL (4.5-6.0); WHITE BLOOD COUNT (AUTO) 15.4 K/uL (4.3-11.0)
[2019-10-22] MEDS ORDERED: TPN BAG #3 IV PRN ×10 (07:00→10:00)
[2019-10-22 07:06] LABS: CALCIUM, SERUM 7.7 mg/dL (8.5-10.1); CREATININE 1.8 mg/dL (0.6-1.3); MAGNESIUM 1.6 mg/dL (1.8-2.4); PHOSPHORUS 3.8 mg/dL (2.5-4.9); POTASSIUM 3.3 mmol/L (3.5-5.1)
[2019-10-22 08:00] VITALS: BP 130/76
[2019-10-22] MEDS: PROSOURCE / PROSTAT (PYXIS) 30 ML UDC GT SCH (09:00)
[2019-10-22] MEDS: ZINC SULFATE 220 MG CAPSULE GT SCH (09:00)
[2019-10-22] MEDS: ASCORBIC ACID 500 MG TABLET GT SCH (09:00)
[2019-10-22] MEDS: MULTIVIT W/MINERALS 1 TAB TABLET GT SCH (09:00)
[2019-10-22] MEDS: FAMOTIDINE (20 MG) 20 MG TABLET GT SCH ×2 (09:00→21:00)
[2019-10-22] MEDS: BICALUTAMIDE 50 MG TABLET GT SCH (09:00)
[2019-10-22] MEDS: CALCIUM CARB 250MG /VITAMIN D 1 UDTAB GT SCH (09:00)
[2019-10-22] MEDS: ACIDOPHILUS/BULGARICUS 1 EACH TAB.CHEW GT SCH ×3 (09:00→17:00)
[2019-10-22] MEDS: CHLORHEXIDINE GLUCONATE 15 ML UDC MM SCH ×2 (09:09→21:45)
[2019-10-22] MEDS: HYDROCORTISONE SOD SUCCINATE 100 MG/2 ML VIAL IV SCH ×2 (09:09→17:24)
[2019-10-22] MEDS: DAKINS QUARTER STRENGTH (0.125%) 480 ML BOTTLE TOP SCH (09:10)
[2019-10-22] MEDS: HYDROGEL DRESSING 90 GM TUBE TP SCH (09:11)
[2019-10-22 12:00] VITALS: BP 104/71
[2019-10-22] MEDS ORDERED: FAT EMULSION 20% 500 ML in PREMIX 1 EA IV PRN (12:00)
[2019-10-22] MEDS ORDERED: TPN BAG # 4 IV PRN ×6 (14:00)
[2019-10-22 16:00] VITALS: BP 110/68
[2019-10-22] MEDS: LEVOFLOXACIN 250 MG /D5W 50 ML 250 MG in PREMIX 1 EA IV SCH (19:34)
[2019-10-22 20:00] VITALS: BP 114/68
[2019-10-22] MEDS: MICAFUNGIN SODIUM 100 MG in IV NS 0.9% 100 ML IV SCH (20:44)
[2019-10-22] MEDS: TAMSULOSIN 0.4 MG CAP.SR.24H GT SCH (22:00)
[2019-10-22] MEDS: INSULIN GLARGINE, 100 UNIT/ML CARTRIDGE SQ SCH (22:10)
[2019-10-23] VITALS: BP_SYST 106; BP_SYST 114; BP_DIAS 65; BP_DIAS 68
[2019-10-23] MEDS: BLOOD SUGAR DIAGNOSTIC 1 EACH STRIP IN SCH ×4 (00:05→18:25)
[2019-10-23] MEDS: IPRATROPIUM NEB FS 0.5 MG/2.5 ML AMPUL.NEB NEB SCH ×4 (01:59→20:18)
[2019-10-23] MEDS: ALBUTEROL FS 2.5 MG/0.5 ML VIAL.NEB NEB SCH ×4 (01:59→20:18)
[2019-10-23 04:00] VITALS: BP 112/71
[2019-10-23] MEDS: VALPROATE 500 MG in IV D5W 100 ML IV SCH ×3 (05:08→22:11)
[2019-10-23 07:11] LABS: BASOPHILS % (AUTO) 0.1 % (0.0-2.0); EOSINOPHILS % (AUTO) 0.1 % (0.0-6.0); HEMATOCRIT 28 % (39-51); HEMOGLOBIN 8.7 g/dL (13.5-17.5); LYMPHOCYTES # (AUTO) 2.6 /CMM (0.8-4.8); LYMPHOCYTES % (AUTO) 15.9 % (20.0-44.0); MEAN CORPUSCULAR HGB CONC 31 g/dl (31.0-36.0); MEAN CORPUSCULAR VOLUME 96 fL (80-96); MONOCYTES # (AUTO) 1.7 /CMM (0.1-1.30); MONOCYTES % (AUTO) 10.4 % (2.0-12.0); NEUTROPHILS # (AUTO) 12.3 /CMM (1.8-8.9); NEUTROPHILS % (AUTO) 73.5 % (43.0-81.0); PLATELET COUNT (AUTO) 175 /CMM (150-450); RED BLOOD CELL COUNT(AUTO) 2.93 MIL/uL (4.5-6.0); WHITE BLOOD COUNT (AUTO) 16.7 K/uL (4.3-11.0)
[2019-10-23 07:39] LABS: CREATININE 1.4 mg/dL (0.6-1.3); MAGNESIUM 1.8 mg/dL (1.8-2.4); POTASSIUM 3.5 mmol/L (3.5-5.1)
[2019-10-23 08:00] VITALS: BP 136/75
[2019-10-23] MEDS: FAMOTIDINE (20 MG) 20 MG TABLET GT SCH ×2 (09:00→22:10)
[2019-10-23] MEDS: BICALUTAMIDE 50 MG TABLET GT SCH (09:00)
[2019-10-23] MEDS: MULTIVIT W/MINERALS 1 TAB TABLET GT SCH (09:00)
[2019-10-23] MEDS: ZINC SULFATE 220 MG CAPSULE GT SCH (09:00)
[2019-10-23] MEDS: PROSOURCE / PROSTAT (PYXIS) 30 ML UDC GT SCH (09:00)
[2019-10-23] MEDS: ASCORBIC ACID 500 MG TABLET GT SCH (09:00)
[2019-10-23] MEDS: ACIDOPHILUS/BULGARICUS 1 EACH TAB.CHEW GT SCH ×3 (09:00→16:11)
[2019-10-23] MEDS: CALCIUM CARB 250MG /VITAMIN D 1 UDTAB GT SCH (09:00)
[2019-10-23] MEDS: MEROPENEM 500 MG in IV NS 0.9% 50 ML IV SCH ×2 (10:46→23:05)
[2019-10-23] MEDS: HYDROCORTISONE SOD SUCCINATE 100 MG/2 ML VIAL IV SCH (10:47)
[2019-10-23] MEDS: DAKINS QUARTER STRENGTH (0.125%) 480 ML BOTTLE TOP SCH (10:47)
[2019-10-23] MEDS: CHLORHEXIDINE GLUCONATE 15 ML UDC MM SCH ×2 (10:47→22:10)
[2019-10-23] MEDS: HYDROGEL DRESSING 90 GM TUBE TP SCH (10:48)
[2019-10-23] MEDS: Z GUARD REMEDY 2 OZ OINT TP PRN (10:48)
[2019-10-23] MEDS ORDERED: TPN BAG #6 IV PRN ×6 (11:30)
[2019-10-23] MEDS ORDERED: TPN BAG #5 IV PRN ×4 (11:30)
[2019-10-23 12:00] VITALS: BP 119/75
[2019-10-23] MEDS: FAT EMULSION 20% 500 ML in PREMIX 1 EA IV SCH (13:01)
[2019-10-23 16:00] VITALS: BP 118/78
[2019-10-23] MEDS: ACETAMINOPHEN 650 MG/SUPP.RECT RC PRN (16:13)
[2019-10-23] MEDS: EPOETIN ALFA (4000 UNIT) 4,000 UNIT/ML VIAL SQ SCH (16:21)
[2019-10-23 20:00] VITALS: BP 131/70
[2019-10-23] MEDS: LEVOFLOXACIN 250 MG /D5W 50 ML 250 MG in PREMIX 1 EA IV SCH (21:31)
[2019-10-23] MEDS: MICAFUNGIN SODIUM 100 MG in IV NS 0.9% 100 ML IV SCH (21:31)
[2019-10-23] MEDS: INSULIN GLARGINE, 100 UNIT/ML CARTRIDGE SQ SCH (22:00)
[2019-10-23] MEDS: TAMSULOSIN 0.4 MG CAP.SR.24H GT SCH (22:10)
[2019-10-24] VITALS: BP 138/74
[2019-10-24] MEDS: BLOOD SUGAR DIAGNOSTIC 1 EACH STRIP IN SCH ×4 (00:38→17:11)
[2019-10-24] MEDS: IPRATROPIUM NEB FS 0.5 MG/2.5 ML AMPUL.NEB NEB SCH ×4 (02:19→19:54)
[2019-10-24] MEDS: ALBUTEROL FS 2.5 MG/0.5 ML VIAL.NEB NEB SCH ×4 (02:19→19:54)
[2019-10-24 04:00] VITALS: BP 109/76
[2019-10-24] MEDS: VALPROATE 500 MG in IV D5W 100 ML IV SCH ×3 (05:02→22:20)
[2019-10-24 06:04] LABS: BILIRUBIN,TOTAL 0.4 mg/dL (0.2-1.0); CALCIUM, SERUM 8.1 mg/dL (8.5-10.1); CREATININE 1.2 mg/dL (0.6-1.3); MAGNESIUM 1.7 mg/dL (1.8-2.4); PHOSPHORUS 2.7 mg/dL (2.5-4.9); POTASSIUM 3.1 mmol/L (3.5-5.1); TOTAL PROTEIN, SERUM 6.2 g/dL (6.4-8.2)
[2019-10-24 06:14] LABS: ALBUMIN 1.3 g/dL (3.4-5.0)
[2019-10-24 06:28] LABS: EOSINOPHILS % (AUTO) 0.3 % (0.0-6.0); HEMATOCRIT 26 % (39-51); HEMOGLOBIN 8.6 g/dL (13.5-17.5); LYMPHOCYTES # (AUTO) 2.8 /CMM (0.8-4.8); LYMPHOCYTES % (AUTO) 15.4 % (20.0-44.0); MEAN CORPUSCULAR HGB CONC 33 g/dl (31.0-36.0); MEAN CORPUSCULAR VOLUME 96 fL (80-96); MONOCYTES # (AUTO) 1.7 /CMM (0.1-1.30); MONOCYTES % (AUTO) 9.6 % (2.0-12.0); NEUTROPHILS # (AUTO) 13.6 /CMM (1.8-8.9); NEUTROPHILS % (AUTO) 74.7 % (43.0-81.0); PLATELET COUNT (AUTO) 253 /CMM (150-450); RED BLOOD CELL COUNT(AUTO) 2.71 MIL/uL (4.5-6.0); WHITE BLOOD COUNT (AUTO) 18.2 K/uL (4.3-11.0)
[2019-10-24 08:00] VITALS: BP 110/68
[2019-10-24] MEDS: FAMOTIDINE (20 MG) 20 MG TABLET GT SCH ×2 (09:00→21:00)
[2019-10-24] MEDS: BICALUTAMIDE 50 MG TABLET GT SCH (09:00)
[2019-10-24] MEDS: MULTIVIT W/MINERALS 1 TAB TABLET GT SCH (09:00)
[2019-10-24] MEDS: CALCIUM CARB 250MG /VITAMIN D 1 UDTAB GT SCH (09:00)
[2019-10-24] MEDS: ZINC SULFATE 220 MG CAPSULE GT SCH (09:00)
[2019-10-24] MEDS: ASCORBIC ACID 500 MG TABLET GT SCH (09:00)
[2019-10-24] MEDS: PROSOURCE / PROSTAT (PYXIS) 30 ML UDC GT SCH (09:00)
[2019-10-24] MEDS: ACIDOPHILUS/BULGARICUS 1 EACH TAB.CHEW GT SCH ×3 (09:00→17:00)
[2019-10-24] MEDS: HYDROCORTISONE SOD SUCCINATE 100 MG/2 ML VIAL IV SCH (10:00)
[2019-10-24] MEDS: CHLORHEXIDINE GLUCONATE 15 ML UDC MM SCH ×2 (10:04→21:22)
[2019-10-24] MEDS: DAKINS QUARTER STRENGTH (0.125%) 480 ML BOTTLE TOP SCH (10:04)
[2019-10-24] MEDS: ACETAMINOPHEN 650 MG/SUPP.RECT RC PRN (10:04)
[2019-10-24] MEDS: Z GUARD REMEDY 2 OZ OINT TP PRN (10:05)
[2019-10-24] MEDS: HYDROGEL DRESSING 90 GM TUBE TP SCH (10:05)
[2019-10-24] MEDS: MEROPENEM 500 MG in IV NS 0.9% 50 ML IV SCH ×2 (10:46→23:26)
[2019-10-24 12:00] VITALS: BP 105/65
[2019-10-24] MEDS ORDERED: TPN BAG #7 IV PRN ×6 (13:30)
[2019-10-24] MEDS: POTASSIUM CL. PREMIX PERIPHER. 50 ML IV SCH ×2 (14:24→15:39)
[2019-10-24 16:00] VITALS: BP 104/70
[2019-10-24 20:00] VITALS: BP 110/53
[2019-10-24] MEDS: LEVOFLOXACIN 250 MG /D5W 50 ML 250 MG in PREMIX 1 EA IV SCH (20:02)
[2019-10-24] MEDS: MICAFUNGIN SODIUM 100 MG in IV NS 0.9% 100 ML IV SCH (21:17)
[2019-10-24] MEDS: TAMSULOSIN 0.4 MG CAP.SR.24H GT SCH (21:20)
[2019-10-24] MEDS: INSULIN GLARGINE, 100 UNIT/ML CARTRIDGE SQ SCH (22:34)
[2019-10-25] VITALS (28 sets, daily range): BP systolic 58–137; BP diastolic 32–75
[2019-10-25] MEDS: BLOOD SUGAR DIAGNOSTIC 1 EACH STRIP IN SCH ×4 (00:34→18:53)
[2019-10-25] MEDS: INSULIN REGULAR, HUMAN 100 UNIT/ML 3 ML VIAL SQ PRN ×3 (00:34→19:03)
[2019-10-25] MEDS: IPRATROPIUM NEB FS 0.5 MG/2.5 ML AMPUL.NEB NEB SCH ×4 (01:50→19:43)
[2019-10-25] MEDS: ALBUTEROL FS 2.5 MG/0.5 ML VIAL.NEB NEB SCH ×4 (01:51→19:43)
[2019-10-25] MEDS: VALPROATE 500 MG in IV D5W 100 ML IV SCH ×3 (05:17→21:27)
[2019-10-25 06:47] LABS: CALCIUM, SERUM 8.2 mg/dL (8.5-10.1); CREATININE 1.3 mg/dL (0.6-1.3); MAGNESIUM 1.9 mg/dL (1.8-2.4); POTASSIUM 4.2 mmol/L (3.5-5.1)
[2019-10-25 08:25] LABS: BASOPHILS % (AUTO) 0.1 % (0.0-2.0); EOSINOPHILS % (AUTO) 0.1 % (0.0-6.0); LYMPHOCYTES % (AUTO) 23.4 % (20.0-44.0); MEAN CORPUSCULAR HGB CONC 29 g/dl (31.0-36.0); MEAN CORPUSCULAR VOLUME 103 fL (80-96); MONOCYTES # (AUTO) 4.9 /CMM (0.1-1.30); MONOCYTES % (AUTO) 10.3 % (2.0-12.0); NEUTROPHILS # (AUTO) 31.1 /CMM (1.8-8.9); NEUTROPHILS % (AUTO) 66.1 % (43.0-81.0); PLATELET COUNT (AUTO) 459 /CMM (150-450)
[2019-10-25 08:29] LABS: RED BLOOD CELL COUNT(AUTO) 1.83 MIL/uL (4.5-6.0)
[2019-10-25 08:31] LABS: HEMATOCRIT 19 % (39-51); HEMOGLOBIN 5.4 g/dL (13.5-17.5); WHITE BLOOD COUNT (AUTO) 47.1 K/uL (4.3-11.0)
[2019-10-25 08:54] LABS: BAND % (MANUAL) 2 % (0.0-5.0); LYMPHOCYTES % (MANUAL) 27 % (16-48); MONOCYTES % (MANUAL) 3 % (0-11.0); NEUTROPHILS % (MANUAL) 68 (42-76)
[2019-10-25] MEDS: CALCIUM CARB 250MG /VITAMIN D 1 UDTAB GT SCH (09:00)
[2019-10-25] MEDS: ZINC SULFATE 220 MG CAPSULE GT SCH (09:00)
[2019-10-25] MEDS: MULTIVIT W/MINERALS 1 TAB TABLET GT SCH (09:00)
[2019-10-25] MEDS: ASCORBIC ACID 500 MG TABLET GT SCH (09:00)
[2019-10-25] MEDS: FAMOTIDINE (20 MG) 20 MG TABLET GT SCH (09:00)
[2019-10-25] MEDS: PROSOURCE / PROSTAT (PYXIS) 30 ML UDC GT SCH (09:00)
[2019-10-25] MEDS: ACIDOPHILUS/BULGARICUS 1 EACH TAB.CHEW GT SCH ×3 (09:00→17:00)
[2019-10-25] MEDS: BICALUTAMIDE 50 MG TABLET GT SCH (09:00)
[2019-10-25] MEDS: CHLORHEXIDINE GLUCONATE 15 ML UDC MM SCH ×2 (09:11→21:26)
[2019-10-25] MEDS: HYDROCORTISONE SOD SUCCINATE 100 MG/2 ML VIAL IV SCH (09:11)
[2019-10-25] MEDS: HYDROGEL DRESSING 90 GM TUBE TP SCH (09:12)
[2019-10-25] MEDS: DAKINS QUARTER STRENGTH (0.125%) 480 ML BOTTLE TOP SCH (09:12)
[2019-10-25] MEDS ORDERED: TPN BAG #8 IV PRN ×3 (10:00)
[2019-10-25] MEDS: MEROPENEM 500 MG in IV NS 0.9% 50 ML IV SCH ×2 (10:39→23:32)
[2019-10-25] MEDS ORDERED: ANESTHESIA TRAY IN PYXIS 1 EA TRAY MC ONE (15:09)
[2019-10-25] MEDS ORDERED: PHENYLEPHRINE 80 MG in IV D5W 250 ML IV PRN (15:30)
[2019-10-25] MEDS: FAT EMULSION 20% 500 ML in PREMIX 1 EA IV SCH (15:56)
[2019-10-25 17:41] LABS: ABG OXYGEN SATURATION 98.1 % (92.0-98.5); ABG PCO2 22.6 mmHg (35.0-45.0); ABG PO2 151.4 mmHg (75.0-100.0); AaDO2 107.8 mmHg; COHb 0.3 % (0.5-1.5); MetHb 0.8 % (0.0-1.5); SITE, ABG Right Radial
[2019-10-25] MEDS: PANTOPRAZOLE 40 MG VIAL IV SCH (18:24)
[2019-10-25] MEDS ORDERED: SODIUM BICARBONATE SYR 50 MEQ/50 ML DISP.SYRIN IV ONE (18:30)
[2019-10-25 18:52] LABS: BASOPHILS # (AUTO) 0.1 /CMM (0.0-0.2); BASOPHILS % (AUTO) 0.2 % (0.0-2.0); EOSINOPHILS % (AUTO) 0.1 % (0.0-6.0); HEMATOCRIT 27 % (39-51); HEMOGLOBIN 9.4 g/dL (13.5-17.5); LYMPHOCYTES % (AUTO) 5.5 % (20.0-44.0); MEAN CORPUSCULAR HGB CONC 35 g/dl (31.0-36.0); MEAN CORPUSCULAR VOLUME 104 fL (80-96); MONOCYTES # (AUTO) 4.6 /CMM (0.1-1.30); MONOCYTES % (AUTO) 8.3 % (2.0-12.0); NEUTROPHILS # (AUTO) 47.7 /CMM (1.8-8.9); NEUTROPHILS % (AUTO) 85.9 % (43.0-81.0); PLATELET COUNT (AUTO) 319 /CMM (150-450); RED BLOOD CELL COUNT(AUTO) 2.61 MIL/uL (4.5-6.0)
[2019-10-25 18:57] LABS: WHITE BLOOD COUNT (AUTO) 55.5 K/uL (4.3-11.0)
[2019-10-25] MEDS: Sodium Bicarbonate 100 MEQ in IV D5W 1,000 ML IV PRN (19:12)
[2019-10-25] MEDS: LEVOFLOXACIN 250 MG /D5W 50 ML 250 MG in PREMIX 1 EA IV SCH (20:15)
[2019-10-25] MEDS: MICAFUNGIN SODIUM 100 MG in IV NS 0.9% 100 ML IV SCH (20:15)
[2019-10-25 21:33] LABS: BAND % (MANUAL) 8 % (0.0-5.0); LYMPHOCYTES % (MANUAL) 9 % (16-48); MONOCYTES % (MANUAL) 2 % (0-11.0); NEUTROPHILS % (MANUAL) 81 (42-76)
[2019-10-25 21:52] LABS: ABG BASE EXCESS -12.7 mmol/L; ABG OXYGEN SATURATION 98.2 % (92.0-98.5); ABG PH 7.344 (7.350-7.450); ABG PO2 152.4 mmHg (75.0-100.0); AaDO2 107.5 mmHg; COHb 0.4 % (0.5-1.5); MetHb 1.2 % (0.0-1.5); O2Hb 96.6 % (94.0-97.0); PEEP,BG 5 cm H2O; SITE, ABG Right Radial; VT, ABG 500 mL
[2019-10-25] MEDS: TAMSULOSIN 0.4 MG CAP.SR.24H GT SCH ×2 (22:00→22:11)
[2019-10-25] MEDS: INSULIN GLARGINE, 100 UNIT/ML CARTRIDGE SQ SCH (22:18)
[2019-10-26] VITALS (37 sets, daily range): BP systolic 83–125; BP diastolic 40–74
[2019-10-26] MEDS: BLOOD SUGAR DIAGNOSTIC 1 EACH STRIP IN SCH ×4 (00:33→18:09)
[2019-10-26] MEDS: INSULIN REGULAR, HUMAN 100 UNIT/ML 3 ML VIAL SQ PRN ×5 (00:38→23:49)
[2019-10-26] MEDS: IPRATROPIUM NEB FS 0.5 MG/2.5 ML AMPUL.NEB NEB SCH ×4 (02:16→19:28)
[2019-10-26] MEDS: ALBUTEROL FS 2.5 MG/0.5 ML VIAL.NEB NEB SCH ×4 (02:16→19:28)
[2019-10-26] MEDS: VALPROATE 500 MG in IV D5W 100 ML IV SCH ×3 (05:12→21:19)
[2019-10-26 05:35] LABS: CALCIUM, SERUM 7.6 mg/dL (8.5-10.1); POTASSIUM 5.1 mmol/L (3.5-5.1)
[2019-10-26 05:40] LABS: CREATININE 1.9 mg/dL (0.6-1.3)
[2019-10-26] MEDS: Sodium Bicarbonate 100 MEQ in IV D5W 1,000 ML IV PRN (06:38)
[2019-10-26] MEDS: ASCORBIC ACID 500 MG TABLET GT SCH (08:33)
[2019-10-26] MEDS: ACIDOPHILUS/BULGARICUS 1 EACH TAB.CHEW GT SCH ×3 (08:33→17:00)
[2019-10-26] MEDS: BICALUTAMIDE 50 MG TABLET GT SCH (08:33)
[2019-10-26] MEDS: PROSOURCE / PROSTAT (PYXIS) 30 ML UDC GT SCH (08:33)
[2019-10-26] MEDS: MULTIVIT W/MINERALS 1 TAB TABLET GT SCH (08:33)
[2019-10-26] MEDS: CALCIUM CARB 250MG /VITAMIN D 1 UDTAB GT SCH (08:33)
[2019-10-26] MEDS: ZINC SULFATE 220 MG CAPSULE GT SCH (08:34)
[2019-10-26] MEDS: CHLORHEXIDINE GLUCONATE 15 ML UDC MM SCH ×2 (08:41→21:19)
[2019-10-26] MEDS: HYDROCORTISONE SOD SUCCINATE 100 MG/2 ML VIAL IV SCH (08:41)
[2019-10-26] MEDS: PANTOPRAZOLE 40 MG VIAL IV SCH ×2 (08:41→18:14)
[2019-10-26] MEDS: HYDROGEL DRESSING 90 GM TUBE TP SCH (08:41)
[2019-10-26] MEDS: DAKINS QUARTER STRENGTH (0.125%) 480 ML BOTTLE TOP SCH (08:41)
[2019-10-26 09:23] LABS: ABG BASE EXCESS -13.7 mmol/L; ABG OXYGEN SATURATION 96.1 % (92.0-98.5); ABG PCO2 22.1 mmHg (35.0-45.0); ABG PH 7.323 (7.350-7.450); ABG PO2 103.4 mmHg (75.0-100.0); AaDO2 156.4 mmHg; COHb 0.2 % (0.5-1.5); MetHb 1.2 % (0.0-1.5); O2Hb 94.8 % (94.0-97.0); SITE, ABG Right Radial; VENT MODE, BG AC 12 500 40% +5
[2019-10-26] MEDS: MEROPENEM 500 MG in IV NS 0.9% 50 ML IV SCH ×2 (11:27→23:41)
[2019-10-26] MEDS: Sodium Bicarbonate 150 MEQ in IV D5W 1,000 ML IV PRN ×2 (11:37→20:14)
[2019-10-26 12:09] LABS: BASOPHILS # (AUTO) 0.3 /CMM (0.0-0.2); BASOPHILS % (AUTO) 0.5 % (0.0-2.0); EOSINOPHILS % (AUTO) 0.2 % (0.0-6.0); LYMPHOCYTES # (AUTO) 6.7 /CMM (0.8-4.8); LYMPHOCYTES % (AUTO) 11.6 % (20.0-44.0); MEAN CORPUSCULAR HGB CONC 35 g/dl (31.0-36.0); MEAN CORPUSCULAR VOLUME 106 fL (80-96); MONOCYTES # (AUTO) 3.4 /CMM (0.1-1.30); MONOCYTES % (AUTO) 5.9 % (2.0-12.0); NEUTROPHILS # (AUTO) 47.1 /CMM (1.8-8.9); NEUTROPHILS % (AUTO) 81.8 % (43.0-81.0); PLATELET COUNT (AUTO) 165 /CMM (150-450)
[2019-10-26 12:15] LABS: WHITE BLOOD COUNT (AUTO) 57.5 K/uL (4.3-11.0)
[2019-10-26 12:16] LABS: HEMATOCRIT 18 % (39-51); HEMOGLOBIN 6.3 g/dL (13.5-17.5)
[2019-10-26] MEDS: PHENYLEPHRINE 80 MG in IV D5W 250 ML IV PRN (12:16)
[2019-10-26] MEDS ORDERED: TPN BAG #9 IV PRN ×5 (12:30)
[2019-10-26] MEDS ORDERED: TPN BAG #10 IV PRN ×3 (12:30)
[2019-10-26 12:42] LABS: BAND % (MANUAL) 5 % (0.0-5.0); EOSINOPHILS % (MANUAL) 1 % (0-4); LYMPHOCYTES % (MANUAL) 14 % (16-48); METAMYELOCYTES % 1 % (0-0); MONOCYTES % (MANUAL) 4 % (0-11.0); MYELOCYTES % 2 % (0-0); NEUTROPHILS % (MANUAL) 73 (42-76)
[2019-10-26] MEDS: EPOETIN ALFA (4000 UNIT) 4,000 UNIT/ML VIAL SQ SCH (15:12)
[2019-10-26] MEDS: METRONIDAZOLE 500MG/ NS 100ML 500 MG in PREMIX 1 EA IV SCH (18:14)
[2019-10-26] MEDS: LEVOFLOXACIN 250 MG /D5W 50 ML 250 MG in PREMIX 1 EA IV SCH (20:19)
[2019-10-26] MEDS: MICAFUNGIN SODIUM 100 MG in IV NS 0.9% 100 ML IV SCH (21:16)
[2019-10-26] MEDS: TAMSULOSIN 0.4 MG CAP.SR.24H GT SCH (21:18)
[2019-10-26] MEDS: INSULIN GLARGINE, 100 UNIT/ML CARTRIDGE SQ SCH (23:48)
[2019-10-27] VITALS (103 sets, daily range): BP systolic 82–121; BP diastolic 45–85
[2019-10-27] MEDS: BLOOD SUGAR DIAGNOSTIC 1 EACH STRIP IN SCH ×5 (00:13→23:24)
[2019-10-27] MEDS: METRONIDAZOLE 500MG/ NS 100ML 500 MG in PREMIX 1 EA IV SCH ×3 (00:48→16:45)
[2019-10-27] MEDS: IPRATROPIUM NEB FS 0.5 MG/2.5 ML AMPUL.NEB NEB SCH ×4 (01:33→19:47)
[2019-10-27] MEDS: ALBUTEROL FS 2.5 MG/0.5 ML VIAL.NEB NEB SCH ×4 (01:33→19:47)
[2019-10-27] MEDS: Sodium Bicarbonate 150 MEQ in IV D5W 1,000 ML IV PRN ×2 (03:51→13:24)
[2019-10-27 05:07] LABS: BASOPHILS # (AUTO) 0.1 /CMM (0.0-0.2); BASOPHILS % (AUTO) 0.1 % (0.0-2.0); EOSINOPHILS % (AUTO) 0.1 % (0.0-6.0); HEMATOCRIT 26 % (39-51); HEMOGLOBIN 8.3 g/dL (13.5-17.5); LYMPHOCYTES # (AUTO) 5.6 /CMM (0.8-4.8); LYMPHOCYTES % (AUTO) 10.8 % (20.0-44.0); MEAN CORPUSCULAR HGB CONC 32 g/dl (31.0-36.0); MEAN CORPUSCULAR VOLUME 95 fL (80-96); MONOCYTES # (AUTO) 3.8 /CMM (0.1-1.30); MONOCYTES % (AUTO) 7.3 % (2.0-12.0); NEUTROPHILS # (AUTO) 42.5 /CMM (1.8-8.9); NEUTROPHILS % (AUTO) 81.7 % (43.0-81.0); PLATELET COUNT (AUTO) 98 /CMM (150-450); RED BLOOD CELL COUNT(AUTO) 2.72 MIL/uL (4.5-6.0)
[2019-10-27 05:35] LABS: CALCIUM, SERUM 7.8 mg/dL (8.5-10.1); MAGNESIUM 1.7 mg/dL (1.8-2.4); PHOSPHORUS 5.8 mg/dL (2.5-4.9); POTASSIUM 3.9 mmol/L (3.5-5.1)
[2019-10-27] MEDS: VALPROATE 500 MG in IV D5W 100 ML IV SCH ×3 (06:08→21:50)
[2019-10-27] MEDS: INSULIN REGULAR, HUMAN 100 UNIT/ML 3 ML VIAL SQ PRN ×4 (06:29→23:27)
[2019-10-27 06:39] LABS: BAND % (MANUAL) 2 % (0.0-5.0); LYMPHOCYTES % (MANUAL) 15 % (16-48); MONOCYTES % (MANUAL) 3 % (0-11.0); NEUTROPHILS % (MANUAL) 80 (42-76)
[2019-10-27] MEDS ORDERED: PHENYLEPHRINE 10 MG/ML VIAL ONE (07:32)
[2019-10-27] MEDS: PHENYLEPHRINE 80 MG in IV D5W 250 ML IV PRN ×3 (07:36→21:04)
[2019-10-27] MEDS: BICALUTAMIDE 50 MG TABLET GT SCH (08:14)
[2019-10-27] MEDS: ACIDOPHILUS/BULGARICUS 1 EACH TAB.CHEW GT SCH ×3 (08:14→16:08)
[2019-10-27] MEDS: ASCORBIC ACID 500 MG TABLET GT SCH (08:15)
[2019-10-27] MEDS: CALCIUM CARB 250MG /VITAMIN D 1 UDTAB GT SCH (08:15)
[2019-10-27] MEDS: PROSOURCE / PROSTAT (PYXIS) 30 ML UDC GT SCH (08:15)
[2019-10-27] MEDS: MULTIVIT W/MINERALS 1 TAB TABLET GT SCH (08:15)
[2019-10-27] MEDS: ZINC SULFATE 220 MG CAPSULE GT SCH (08:15)
[2019-10-27] MEDS: PANTOPRAZOLE 40 MG VIAL IV SCH ×2 (08:22→16:45)
[2019-10-27] MEDS: CHLORHEXIDINE GLUCONATE 15 ML UDC MM SCH ×2 (08:22→21:00)
[2019-10-27] MEDS: DAKINS QUARTER STRENGTH (0.125%) 480 ML BOTTLE TOP SCH (08:22)
[2019-10-27] MEDS: HYDROGEL DRESSING 90 GM TUBE TP SCH (08:22)
[2019-10-27] MEDS: HYDROCORTISONE SOD SUCCINATE 100 MG/2 ML VIAL IV SCH (08:23)
[2019-10-27] MEDS ORDERED: TPN BAG #10 IV PRN ×3 (09:58)
[2019-10-27] MEDS: MEROPENEM 500 MG in IV NS 0.9% 50 ML IV SCH ×2 (10:54→23:21)
[2019-10-27] MEDS: FAT EMULSION 20% 500 ML in PREMIX 1 EA IV SCH (14:27)
[2019-10-27] MEDS ORDERED: FEE PK DOSING 1 MIN EA MC ONE (19:05)
[2019-10-27] MEDS: MICAFUNGIN SODIUM 100 MG in IV NS 0.9% 100 ML IV SCH (20:13)
[2019-10-27] MEDS: LEVOFLOXACIN 250 MG /D5W 50 ML 250 MG in PREMIX 1 EA IV SCH (20:14)
[2019-10-27] MEDS: VANCOMYCIN 1.25 GM in IV D5W 250 ML IV SCH (20:14)
[2019-10-27] MEDS: TAMSULOSIN 0.4 MG CAP.SR.24H GT SCH (21:50)
[2019-10-27] MEDS: INSULIN GLARGINE, 100 UNIT/ML CARTRIDGE SQ SCH (23:24)
[2019-10-28] VITALS (103 sets, daily range): BP systolic 81–110; BP diastolic 48–74
[2019-10-28] MEDS: LORAZEPAM INJ 2 MG/ML VIAL IV PRN (00:04)
[2019-10-28] MEDS: METRONIDAZOLE 500MG/ NS 100ML 500 MG in PREMIX 1 EA IV SCH ×3 (00:48→17:08)
[2019-10-28] MEDS: IPRATROPIUM NEB FS 0.5 MG/2.5 ML AMPUL.NEB NEB SCH ×4 (00:56→19:33)
[2019-10-28] MEDS: ALBUTEROL FS 2.5 MG/0.5 ML VIAL.NEB NEB SCH ×4 (00:56→19:33)
[2019-10-28] MEDS: Sodium Bicarbonate 150 MEQ in IV D5W 1,000 ML IV PRN ×2 (01:27→13:25)
[2019-10-28] MEDS: PHENYLEPHRINE 80 MG in IV D5W 250 ML IV PRN ×4 (03:47→21:31)
[2019-10-28 04:48] LABS: CALCIUM, SERUM 7.2 mg/dL (8.5-10.1); CREATININE 2.3 mg/dL (0.6-1.3); MAGNESIUM 1.7 mg/dL (1.8-2.4); PHOSPHORUS 5.9 mg/dL (2.5-4.9); POTASSIUM 3.5 mmol/L (3.5-5.1)
[2019-10-28] MEDS: VALPROATE 500 MG in IV D5W 100 ML IV SCH ×3 (05:30→21:00)
[2019-10-28 05:34] LABS: BASOPHILS # (AUTO) 0.1 /CMM (0.0-0.2); BASOPHILS % (AUTO) 0.1 % (0.0-2.0); HEMATOCRIT 27 % (39-51); HEMOGLOBIN 8.9 g/dL (13.5-17.5); LYMPHOCYTES # (AUTO) 4.3 /CMM (0.8-4.8); LYMPHOCYTES % (AUTO) 6.7 % (20.0-44.0); MEAN CORPUSCULAR HGB CONC 33 g/dl (31.0-36.0); MEAN CORPUSCULAR VOLUME 98 fL (80-96); MONOCYTES # (AUTO) 3.7 /CMM (0.1-1.30); MONOCYTES % (AUTO) 5.8 % (2.0-12.0); NEUTROPHILS # (AUTO) 56.3 /CMM (1.8-8.9); NEUTROPHILS % (AUTO) 87.4 % (43.0-81.0); PLATELET COUNT (AUTO) 105 /CMM (150-450); RED BLOOD CELL COUNT(AUTO) 2.73 MIL/uL (4.5-6.0)
[2019-10-28 05:39] LABS: WHITE BLOOD COUNT (AUTO) 64.4 K/uL (4.3-11.0)
[2019-10-28] MEDS ORDERED: IV NS 0.9% 500 ML IV ONE ×2 (06:00→09:00)
[2019-10-28 06:02] LABS: LYMPHOCYTES % (MANUAL) 5 % (16-48); MONOCYTES % (MANUAL) 3 % (0-11.0); NEUTROPHILS % (MANUAL) 92 (42-76)
[2019-10-28] MEDS: BLOOD SUGAR DIAGNOSTIC 1 EACH STRIP IN SCH ×4 (06:15→23:47)
[2019-10-28] MEDS: INSULIN REGULAR, HUMAN 100 UNIT/ML 3 ML VIAL SQ PRN ×4 (06:17→23:50)
[2019-10-28] MEDS: MORPHINE SULFATE INJ 2 MG/ML DISP.SYRIN IVP PRN (07:57)
[2019-10-28] MEDS: PROSOURCE / PROSTAT (PYXIS) 30 ML UDC GT SCH (08:04)
[2019-10-28] MEDS: ACIDOPHILUS/BULGARICUS 1 EACH TAB.CHEW GT SCH ×3 (08:04→16:29)
[2019-10-28] MEDS: MULTIVIT W/MINERALS 1 TAB TABLET GT SCH (08:04)
[2019-10-28] MEDS: BICALUTAMIDE 50 MG TABLET GT SCH (08:04)
[2019-10-28] MEDS: ASCORBIC ACID 500 MG TABLET GT SCH (08:04)
[2019-10-28] MEDS: ZINC SULFATE 220 MG CAPSULE GT SCH (08:04)
[2019-10-28] MEDS: CALCIUM CARB 250MG /VITAMIN D 1 UDTAB GT SCH (08:04)
[2019-10-28] MEDS: CHLORHEXIDINE GLUCONATE 15 ML UDC MM SCH ×2 (08:06→21:00)
[2019-10-28] MEDS: HYDROCORTISONE SOD SUCCINATE 100 MG/2 ML VIAL IV SCH (08:07)
[2019-10-28] MEDS: DAKINS QUARTER STRENGTH (0.125%) 480 ML BOTTLE TOP SCH (08:07)
[2019-10-28] MEDS: PANTOPRAZOLE 40 MG VIAL IV SCH ×2 (08:07→17:08)
[2019-10-28] MEDS: HYDROGEL DRESSING 90 GM TUBE TP SCH (08:07)
[2019-10-28 11:14] LABS: ABG OXYGEN SATURATION 94.8 % (92.0-98.5); ABG PCO2 36.2 mmHg (35.0-45.0); ABG PH 7.323 (7.350-7.450); AaDO2 161.6 mmHg; COHb 0.1 % (0.5-1.5); MetHb 1.1 % (0.0-1.5); O2Hb 93.7 % (94.0-97.0); PEEP,BG 5 cm H2O; SITE, ABG Right Femoral; VT, ABG 500 mL
[2019-10-28] MEDS: MEROPENEM 500 MG in IV NS 0.9% 50 ML IV SCH ×2 (11:35→23:01)
[2019-10-28 12:32] LABS: BASOPHILS % (AUTO) 0.1 % (0.0-2.0); EOSINOPHILS % (AUTO) 0.1 % (0.0-6.0); HEMATOCRIT 23 % (39-51); HEMOGLOBIN 8.5 g/dL (13.5-17.5); LYMPHOCYTES # (AUTO) 2.8 /CMM (0.8-4.8); LYMPHOCYTES % (AUTO) 4.9 % (20.0-44.0); MEAN CORPUSCULAR HGB CONC 37 g/dl (31.0-36.0); MEAN CORPUSCULAR VOLUME 98 fL (80-96); MONOCYTES # (AUTO) 4.7 /CMM (0.1-1.30); MONOCYTES % (AUTO) 8.2 % (2.0-12.0); NEUTROPHILS # (AUTO) 50.2 /CMM (1.8-8.9); NEUTROPHILS % (AUTO) 86.7 % (43.0-81.0); PLATELET COUNT (AUTO) 85 /CMM (150-450); RED BLOOD CELL COUNT(AUTO) 2.36 MIL/uL (4.5-6.0)
[2019-10-28 12:59] LABS: WHITE BLOOD COUNT (AUTO) 57.9 K/uL (4.3-11.0)
[2019-10-28 14:20] LABS: BAND % (MANUAL) 24 % (0.0-5.0); LYMPHOCYTES % (MANUAL) 4 % (16-48); MONOCYTES % (MANUAL) 9 % (0-11.0); NEUTROPHILS % (MANUAL) 63 (42-76)
[2019-10-28] MEDS: VANCOMYCIN 1.25 GM in IV D5W 250 ML IV SCH (14:22)
[2019-10-28] MEDS: EPOETIN ALFA (4000 UNIT) 4,000 UNIT/ML VIAL SQ SCH (15:24)
[2019-10-28] MEDS ORDERED: TPN BAG#11 IV PRN ×5 (16:00)
[2019-10-28 17:12] LABS: HEMOGLOBIN 7.3 g/dL (13.5-17.5)
[2019-10-28] MEDS: MICAFUNGIN SODIUM 100 MG in IV NS 0.9% 100 ML IV SCH (20:00)
[2019-10-28] MEDS: INSULIN GLARGINE, 100 UNIT/ML CARTRIDGE SQ SCH (21:54)
[2019-10-28] MEDS: TAMSULOSIN 0.4 MG CAP.SR.24H GT SCH (21:55)
[2019-10-28 23:14] LABS: HEMOGLOBIN 8.1 g/dL (13.5-17.5)
[2019-10-29] VITALS (103 sets, daily range): BP systolic 72–118; BP diastolic 35–79
[2019-10-29] MEDS: Sodium Bicarbonate 150 MEQ in IV D5W 1,000 ML IV PRN (01:00)
[2019-10-29] MEDS: METRONIDAZOLE 500MG/ NS 100ML 500 MG in PREMIX 1 EA IV SCH ×3 (01:00→16:24)
[2019-10-29] MEDS: ALBUTEROL FS 2.5 MG/0.5 ML VIAL.NEB NEB SCH ×5 (01:30→19:47)
[2019-10-29] MEDS: IPRATROPIUM NEB FS 0.5 MG/2.5 ML AMPUL.NEB NEB SCH ×4 (01:44→19:47)
[2019-10-29] MEDS: PHENYLEPHRINE 80 MG in IV D5W 250 ML IV PRN ×5 (02:27→22:02)
[2019-10-29] MEDS: VALPROATE 500 MG in IV D5W 100 ML IV SCH ×3 (04:28→21:00)
[2019-10-29 04:41] LABS: BASOPHILS # (AUTO) 0.1 /CMM (0.0-0.2); BASOPHILS % (AUTO) 0.1 % (0.0-2.0); HEMATOCRIT 24 % (39-51); HEMOGLOBIN 7.4 g/dL (13.5-17.5); LYMPHOCYTES # (AUTO) 3.7 /CMM (0.8-4.8); LYMPHOCYTES % (AUTO) 6.1 % (20.0-44.0); MEAN CORPUSCULAR HGB CONC 31 g/dl (31.0-36.0); MEAN CORPUSCULAR VOLUME 98 fL (80-96); MONOCYTES # (AUTO) 5.7 /CMM (0.1-1.30); MONOCYTES % (AUTO) 9.4 % (2.0-12.0); NEUTROPHILS # (AUTO) 50.9 /CMM (1.8-8.9); NEUTROPHILS % (AUTO) 84.4 % (43.0-81.0); PLATELET COUNT (AUTO) 87 /CMM (150-450); RED BLOOD CELL COUNT(AUTO) 2.42 MIL/uL (4.5-6.0)
[2019-10-29 04:53] LABS: CALCIUM, SERUM 7.6 mg/dL (8.5-10.1); CREATININE 2.3 mg/dL (0.6-1.3); MAGNESIUM 1.6 mg/dL (1.8-2.4); PHOSPHORUS 5.8 mg/dL (2.5-4.9); POTASSIUM 3.1 mmol/L (3.5-5.1)
[2019-10-29 05:32] LABS: WHITE BLOOD COUNT (AUTO) 60.3 K/uL (4.3-11.0)
[2019-10-29] MEDS: BLOOD SUGAR DIAGNOSTIC 1 EACH STRIP IN SCH ×4 (05:58→23:40)
[2019-10-29] MEDS: INSULIN REGULAR, HUMAN 100 UNIT/ML 3 ML VIAL SQ PRN ×3 (06:01→17:52)
[2019-10-29 06:03] LABS: NEUTROPHILS % (MANUAL) 87 (42-76)
[2019-10-29 06:04] LABS: BAND % (MANUAL) 5 % (0.0-5.0); LYMPHOCYTES % (MANUAL) 3 % (16-48); MONOCYTES % (MANUAL) 5 % (0-11.0)
[2019-10-29] MEDS: VANCOMYCIN 1.25 GM in IV D5W 250 ML IV SCH (07:39)
[2019-10-29] MEDS ORDERED: Magnesium 1GM/D5W 100ML PREMIX 100 ML IV SCH (08:30)
[2019-10-29] MEDS: POTASSIUM CL. PREMIX PERIPHER. 50 ML IV SCH ×3 (08:37→11:07)
[2019-10-29] MEDS: PANTOPRAZOLE 40 MG VIAL IV SCH ×2 (08:37→16:24)
[2019-10-29] MEDS: HYDROCORTISONE SOD SUCCINATE 100 MG/2 ML VIAL IV SCH (08:38)
[2019-10-29] MEDS: CHLORHEXIDINE GLUCONATE 15 ML UDC MM SCH ×2 (08:38→21:01)
[2019-10-29] MEDS: PROSOURCE / PROSTAT (PYXIS) 30 ML UDC GT SCH (08:44)
[2019-10-29] MEDS: ACIDOPHILUS/BULGARICUS 1 EACH TAB.CHEW GT SCH ×3 (08:44→16:08)
[2019-10-29] MEDS: BICALUTAMIDE 50 MG TABLET GT SCH (08:44)
[2019-10-29] MEDS: MULTIVIT W/MINERALS 1 TAB TABLET GT SCH (08:44)
[2019-10-29] MEDS: CALCIUM CARB 250MG /VITAMIN D 1 UDTAB GT SCH (08:44)
[2019-10-29] MEDS: ASCORBIC ACID 500 MG TABLET GT SCH (08:44)
[2019-10-29] MEDS: DAKINS QUARTER STRENGTH (0.125%) 480 ML BOTTLE TOP SCH (08:45)
[2019-10-29] MEDS: ZINC SULFATE 220 MG CAPSULE GT SCH (08:45)
[2019-10-29] MEDS: HYDROGEL DRESSING 90 GM TUBE TP SCH (08:45)
[2019-10-29] MEDS: IV NS 0.9% 1,000 ML IV PRN ×2 (09:56→19:09)
[2019-10-29] MEDS: MEROPENEM 500 MG in IV NS 0.9% 50 ML IV SCH ×2 (11:08→23:03)
[2019-10-29 12:08] LABS: HEMOGLOBIN 6.6 g/dL (13.5-17.5)
[2019-10-29] MEDS: FAT EMULSION 20% 500 ML in PREMIX 1 EA IV SCH (13:31)
[2019-10-29] MEDS ORDERED: TPN BAG #12 IV PRN ×6 (18:00)
[2019-10-29] MEDS: MICAFUNGIN SODIUM 100 MG in IV NS 0.9% 100 ML IV SCH (20:02)
[2019-10-29] MEDS: TAMSULOSIN 0.4 MG CAP.SR.24H GT SCH (21:55)
[2019-10-29] MEDS: INSULIN GLARGINE, 100 UNIT/ML CARTRIDGE SQ SCH (21:57)
[2019-10-29 23:03] LABS: HEMOGLOBIN 11.5 g/dL (13.5-17.5)
[2019-10-30] VITALS (93 sets, daily range): BP systolic 81–122; BP diastolic 51–77
[2019-10-30] MEDS: METRONIDAZOLE 500MG/ NS 100ML 500 MG in PREMIX 1 EA IV SCH ×3 (01:00→16:57)
[2019-10-30] MEDS: IPRATROPIUM NEB FS 0.5 MG/2.5 ML AMPUL.NEB NEB SCH ×4 (01:14→19:41)
[2019-10-30] MEDS: ALBUTEROL FS 2.5 MG/0.5 ML VIAL.NEB NEB SCH ×4 (01:15→19:41)
[2019-10-30] MEDS: VANCOMYCIN 1.25 GM in IV D5W 250 ML IV SCH (02:00)
[2019-10-30] MEDS: PHENYLEPHRINE 80 MG in IV D5W 250 ML IV PRN ×4 (03:02→18:14)
[2019-10-30 04:50] LABS: BASOPHILS # (AUTO) 0.1 /CMM (0.0-0.2); BASOPHILS % (AUTO) 0.2 % (0.0-2.0); EOSINOPHILS % (AUTO) 0.1 % (0.0-6.0); HEMATOCRIT 35 % (39-51); HEMOGLOBIN 11.6 g/dL (13.5-17.5); LYMPHOCYTES % (AUTO) 4.1 % (20.0-44.0); MEAN CORPUSCULAR HGB CONC 33 g/dl (31.0-36.0); MEAN CORPUSCULAR VOLUME 95 fL (80-96); MONOCYTES # (AUTO) 4.9 /CMM (0.1-1.30); MONOCYTES % (AUTO) 10.1 % (2.0-12.0); NEUTROPHILS # (AUTO) 41.6 /CMM (1.8-8.9); NEUTROPHILS % (AUTO) 85.5 % (43.0-81.0); PLATELET COUNT (AUTO) 75 /CMM (150-450); RED BLOOD CELL COUNT(AUTO) 3.67 MIL/uL (4.5-6.0)
[2019-10-30] MEDS: VALPROATE 500 MG in IV D5W 100 ML IV SCH ×3 (05:00→20:53)
[2019-10-30 05:07] LABS: CALCIUM, SERUM 7.6 mg/dL (8.5-10.1); CREATININE 2.1 mg/dL (0.6-1.3); MAGNESIUM 1.8 mg/dL (1.8-2.4); PHOSPHORUS 5.4 mg/dL (2.5-4.9)
[2019-10-30 05:09] LABS: WHITE BLOOD COUNT (AUTO) 48.7 K/uL (4.3-11.0)
[2019-10-30 05:30] LABS: NEUTROPHILS % (MANUAL) 82 (42-76)
[2019-10-30 05:31] LABS: BAND % (MANUAL) 6 % (0.0-5.0); LYMPHOCYTES % (MANUAL) 3 % (16-48); MONOCYTES % (MANUAL) 9 % (0-11.0)
[2019-10-30] MEDS: BLOOD SUGAR DIAGNOSTIC 1 EACH STRIP IN SCH ×4 (05:37→23:14)
[2019-10-30] MEDS: IV NS 0.9% 1,000 ML IV PRN ×2 (05:40→18:10)
[2019-10-30] MEDS: ACIDOPHILUS/BULGARICUS 1 EACH TAB.CHEW GT SCH ×3 (08:01→16:46)
[2019-10-30] MEDS: MULTIVIT W/MINERALS 1 TAB TABLET GT SCH (08:01)
[2019-10-30] MEDS: ASCORBIC ACID 500 MG TABLET GT SCH (08:01)
[2019-10-30] MEDS: PROSOURCE / PROSTAT (PYXIS) 30 ML UDC GT SCH (08:01)
[2019-10-30] MEDS: ZINC SULFATE 220 MG CAPSULE GT SCH (08:01)
[2019-10-30] MEDS: BICALUTAMIDE 50 MG TABLET GT SCH (08:01)
[2019-10-30] MEDS: CALCIUM CARB 250MG /VITAMIN D 1 UDTAB GT SCH (08:01)
[2019-10-30] MEDS: PANTOPRAZOLE 40 MG VIAL IV SCH ×2 (08:08→16:56)
[2019-10-30] MEDS: HYDROCORTISONE SOD SUCCINATE 100 MG/2 ML VIAL IV SCH (08:08)
[2019-10-30] MEDS: DAKINS QUARTER STRENGTH (0.125%) 480 ML BOTTLE TOP SCH (08:09)
[2019-10-30] MEDS: HYDROGEL DRESSING 90 GM TUBE TP SCH (08:09)
[2019-10-30] MEDS: CHLORHEXIDINE GLUCONATE 15 ML UDC MM SCH ×2 (08:10→20:53)
[2019-10-30] MEDS ORDERED: Potassium Chloride 40 MEQ in IV NS 0.9% 1,000 ML IV PRN (09:54)
[2019-10-30] MEDS: MEROPENEM 500 MG in IV NS 0.9% 50 ML IV SCH ×2 (10:48→23:15)
[2019-10-30] MEDS ORDERED: POTASSIUM CL. PREMIX PERIPHER. 50 ML IV SCH (11:30)
[2019-10-30] MEDS ORDERED: TPN BAG #13 IV PRN ×5 (12:30)
[2019-10-30] MEDS: EPOETIN ALFA (4000 UNIT) 4,000 UNIT/ML VIAL SQ SCH (16:00)
[2019-10-30 17:16] LABS: HEMOGLOBIN 10.5 g/dL (13.5-17.5)
[2019-10-30 17:34] LABS: CALCIUM, SERUM 6.5 mg/dL (8.5-10.1); CREATININE 2.1 mg/dL (0.6-1.3); POTASSIUM 6.1 mmol/L (3.5-5.1)
[2019-10-30] MEDS: INSULIN REGULAR, HUMAN 100 UNIT/ML 3 ML VIAL SQ PRN (17:36)
[2019-10-30] MEDS ORDERED: INSULIN REGULAR, HUMAN 100 UNIT/ML 3 ML VIAL IV ONE (18:00)
[2019-10-30] MEDS ORDERED: DEXTROSE 50%-WATER 50 ML DISP.SYRIN IVP ONE (18:00)
[2019-10-30] MEDS: MICAFUNGIN SODIUM 100 MG in IV NS 0.9% 100 ML IV SCH (19:54)
[2019-10-30] MEDS: TAMSULOSIN 0.4 MG CAP.SR.24H GT SCH (21:19)
[2019-10-30] MEDS: INSULIN GLARGINE, 100 UNIT/ML CARTRIDGE SQ SCH (23:15)
[2019-10-31] VITALS (56 sets, daily range): BP systolic 89–143; BP diastolic 45–82
[2019-10-31] MEDS: PHENYLEPHRINE 80 MG in IV D5W 250 ML IV PRN ×5 (00:06→21:57)
[2019-10-31] MEDS: METRONIDAZOLE 500MG/ NS 100ML 500 MG in PREMIX 1 EA IV SCH ×3 (00:06→17:16)
[2019-10-31] MEDS: IPRATROPIUM NEB FS 0.5 MG/2.5 ML AMPUL.NEB NEB SCH ×4 (01:00→19:42)
[2019-10-31] MEDS: ALBUTEROL FS 2.5 MG/0.5 ML VIAL.NEB NEB SCH ×4 (01:00→19:42)
[2019-10-31] MEDS: IV NS 0.9% 1,000 ML IV PRN ×2 (02:41→10:00)
[2019-10-31 04:49] LABS: BASOPHILS # (AUTO) 0.1 /CMM (0.0-0.2); BASOPHILS % (AUTO) 0.2 % (0.0-2.0); HEMATOCRIT 34 % (39-51); HEMOGLOBIN 11.2 g/dL (13.5-17.5); LYMPHOCYTES # (AUTO) 2.1 /CMM (0.8-4.8); MEAN CORPUSCULAR HGB CONC 33 g/dl (31.0-36.0); MEAN CORPUSCULAR VOLUME 96 fL (80-96); MONOCYTES # (AUTO) 5.4 /CMM (0.1-1.30); MONOCYTES % (AUTO) 15.7 % (2.0-12.0); NEUTROPHILS # (AUTO) 27.2 /CMM (1.8-8.9); NEUTROPHILS % (AUTO) 78.1 % (43.0-81.0); PLATELET COUNT (AUTO) 63 /CMM (150-450); RED BLOOD CELL COUNT(AUTO) 3.56 MIL/uL (4.5-6.0)
[2019-10-31 05:03] LABS: CALCIUM, SERUM 7.9 mg/dL (8.5-10.1); CREATININE 2.1 mg/dL (0.6-1.3); MAGNESIUM 1.9 mg/dL (1.8-2.4); PHOSPHORUS 5.9 mg/dL (2.5-4.9); POTASSIUM 3.5 mmol/L (3.5-5.1)
[2019-10-31 05:30] LABS: WHITE BLOOD COUNT (AUTO) 34.8 K/uL (4.3-11.0)
[2019-10-31 05:33] LABS: BAND % (MANUAL) 2 % (0.0-5.0); LYMPHOCYTES % (MANUAL) 4 % (16-48); MONOCYTES % (MANUAL) 10 % (0-11.0); NEUTROPHILS % (MANUAL) 84 (42-76)
[2019-10-31] MEDS: VALPROATE 500 MG in IV D5W 100 ML IV SCH ×3 (05:36→20:56)
[2019-10-31] MEDS: BLOOD SUGAR DIAGNOSTIC 1 EACH STRIP IN SCH ×3 (05:37→17:27)
[2019-10-31] MEDS: HYDROCORTISONE SOD SUCCINATE 100 MG/2 ML VIAL IV SCH (08:48)
[2019-10-31] MEDS: ACIDOPHILUS/BULGARICUS 1 EACH TAB.CHEW GT SCH ×3 (08:48→17:16)
[2019-10-31] MEDS: PANTOPRAZOLE 40 MG VIAL IV SCH ×2 (08:48→17:18)
[2019-10-31] MEDS: CHLORHEXIDINE GLUCONATE 15 ML UDC MM SCH ×2 (08:48→21:36)
[2019-10-31] MEDS: MULTIVIT W/MINERALS 1 TAB TABLET GT SCH (08:48)
[2019-10-31] MEDS: BICALUTAMIDE 50 MG TABLET GT SCH (08:48)
[2019-10-31] MEDS: ASCORBIC ACID 500 MG TABLET GT SCH (08:48)
[2019-10-31] MEDS: CALCIUM CARB 250MG /VITAMIN D 1 UDTAB GT SCH (08:48)
[2019-10-31] MEDS: ZINC SULFATE 220 MG CAPSULE GT SCH (08:48)
[2019-10-31] MEDS: HYDROGEL DRESSING 90 GM TUBE TP SCH (08:49)
[2019-10-31] MEDS: DAKINS QUARTER STRENGTH (0.125%) 480 ML BOTTLE TOP SCH (08:49)
[2019-10-31] MEDS: PROSOURCE / PROSTAT (PYXIS) 30 ML UDC GT SCH (09:02)
[2019-10-31] MEDS: MEROPENEM 500 MG in IV NS 0.9% 50 ML IV SCH ×2 (10:47→22:05)
[2019-10-31] MEDS: FAT EMULSION 20% 500 ML in PREMIX 1 EA IV SCH (12:57)
[2019-10-31] MEDS ORDERED: TPN BAG #15 IV PRN ×6 (13:00)
[2019-10-31] MEDS ORDERED: TPN BAG #14 IV PRN ×6 (13:00)
[2019-10-31] MEDS: MICAFUNGIN SODIUM 100 MG in IV NS 0.9% 100 ML IV SCH (20:55)
[2019-10-31] MEDS: TAMSULOSIN 0.4 MG CAP.SR.24H GT SCH (21:36)
[2019-10-31] MEDS: INSULIN GLARGINE, 100 UNIT/ML CARTRIDGE SQ SCH (21:38)
[2019-11-01] VITALS (64 sets, daily range): BP systolic 60–116; BP diastolic 15–72
[2019-11-01] MEDS: ALBUTEROL FS 2.5 MG/0.5 ML VIAL.NEB NEB SCH ×4 (01:25→19:39)
[2019-11-01] MEDS: IPRATROPIUM NEB FS 0.5 MG/2.5 ML AMPUL.NEB NEB SCH ×4 (01:25→19:39)
[2019-11-01] MEDS: BLOOD SUGAR DIAGNOSTIC 1 EACH STRIP IN SCH ×5 (01:26→23:28)
[2019-11-01] MEDS: METRONIDAZOLE 500MG/ NS 100ML 500 MG in PREMIX 1 EA IV SCH ×3 (01:29→17:34)
[2019-11-01] MEDS: PHENYLEPHRINE 80 MG in IV D5W 250 ML IV PRN ×4 (03:08→23:23)
[2019-11-01] MEDS: VALPROATE 500 MG in IV D5W 100 ML IV SCH ×3 (04:57→21:15)
[2019-11-01] MEDS: ASCORBIC ACID 500 MG TABLET GT SCH (08:42)
[2019-11-01] MEDS: CALCIUM CARB 250MG /VITAMIN D 1 UDTAB GT SCH (08:42)
[2019-11-01] MEDS: HYDROCORTISONE SOD SUCCINATE 100 MG/2 ML VIAL IV SCH (08:42)
[2019-11-01] MEDS: PANTOPRAZOLE 40 MG VIAL IV SCH ×2 (08:42→17:34)
[2019-11-01] MEDS: ACIDOPHILUS/BULGARICUS 1 EACH TAB.CHEW GT SCH ×3 (08:42→17:34)
[2019-11-01] MEDS: MULTIVIT W/MINERALS 1 TAB TABLET GT SCH (08:42)
[2019-11-01] MEDS: CHLORHEXIDINE GLUCONATE 15 ML UDC MM SCH ×2 (08:43→21:15)
[2019-11-01] MEDS: BICALUTAMIDE 50 MG TABLET GT SCH (08:45)
[2019-11-01] MEDS: ZINC SULFATE 220 MG CAPSULE GT SCH (08:45)
[2019-11-01] MEDS: PROSOURCE / PROSTAT (PYXIS) 30 ML UDC GT SCH (08:57)
[2019-11-01] MEDS: DAKINS QUARTER STRENGTH (0.125%) 480 ML BOTTLE TOP SCH (08:58)
[2019-11-01] MEDS: HYDROGEL DRESSING 90 GM TUBE TP SCH (08:58)
[2019-11-01] MEDS ORDERED: TPN BAG #16 IV PRN ×12 (10:30→11:58)
[2019-11-01 11:01] LABS: BASOPHILS # (AUTO) 0.1 /CMM (0.0-0.2); BASOPHILS % (AUTO) 0.3 % (0.0-2.0); EOSINOPHILS % (AUTO) 0.2 % (0.0-6.0); HEMATOCRIT 36 % (39-51); HEMOGLOBIN 12.1 g/dL (13.5-17.5); LYMPHOCYTES # (AUTO) 1.5 /CMM (0.8-4.8); LYMPHOCYTES % (AUTO) 5.4 % (20.0-44.0); MEAN CORPUSCULAR HGB CONC 33 g/dl (31.0-36.0); MEAN CORPUSCULAR VOLUME 98 fL (80-96); MONOCYTES # (AUTO) 2.9 /CMM (0.1-1.30); MONOCYTES % (AUTO) 10.9 % (2.0-12.0); NEUTROPHILS # (AUTO) 22.4 /CMM (1.8-8.9); NEUTROPHILS % (AUTO) 83.2 % (43.0-81.0); PLATELET COUNT (AUTO) 62 /CMM (150-450); RED BLOOD CELL COUNT(AUTO) 3.71 MIL/uL (4.5-6.0)
[2019-11-01 11:02] LABS: CALCIUM, SERUM 7.5 mg/dL (8.5-10.1); CREATININE 2.2 mg/dL (0.6-1.3); MAGNESIUM 2.3 mg/dL (1.8-2.4); PHOSPHORUS 6.9 mg/dL (2.5-4.9); POTASSIUM 3.4 mmol/L (3.5-5.1)
[2019-11-01] MEDS: IV NS 0.9% 1,000 ML IV PRN ×2 (11:51→21:16)
[2019-11-01] MEDS: MEROPENEM 500 MG in IV NS 0.9% 50 ML IV SCH ×2 (12:05→23:20)
[2019-11-01 14:06] LABS: BAND % (MANUAL) 13 % (0.0-5.0); EOSINOPHILS % (MANUAL) 1 % (0-4); LYMPHOCYTES % (MANUAL) 9 % (16-48); METAMYELOCYTES % 1 % (0-0); MONOCYTES % (MANUAL) 11 % (0-11.0); MYELOCYTES % 3 % (0-0); NEUTROPHILS % (MANUAL) 62 (42-76)
[2019-11-01 16:39] LABS: HEMOGLOBIN 10.9 g/dL (13.5-17.5)
[2019-11-01] MEDS: NOREPINEPHRINE 16 MG in IV D5W 500 ML IV PRN (18:20)
[2019-11-01] MEDS: MICAFUNGIN SODIUM 100 MG in IV NS 0.9% 100 ML IV SCH ×2 (20:40→22:46)
[2019-11-01] MEDS: TAMSULOSIN 0.4 MG CAP.SR.24H GT SCH (21:15)
[2019-11-01] MEDS: INSULIN GLARGINE, 100 UNIT/ML CARTRIDGE SQ SCH (21:38)
[2019-11-01] MEDS ORDERED: MICAFUNGIN SODIUM 100 MG VIAL IV ONE (22:29)
[2019-11-02] VITALS (86 sets, daily range): BP systolic 70–135; BP diastolic 41–83
[2019-11-02] MEDS: METRONIDAZOLE 500MG/ NS 100ML 500 MG in PREMIX 1 EA IV SCH ×3 (01:41→17:11)
[2019-11-02] MEDS: ALBUTEROL FS 2.5 MG/0.5 ML VIAL.NEB NEB SCH ×4 (01:45→20:00)
[2019-11-02] MEDS: IPRATROPIUM NEB FS 0.5 MG/2.5 ML AMPUL.NEB NEB SCH ×4 (01:45→20:00)
[2019-11-02] MEDS: PHENYLEPHRINE 80 MG in IV D5W 250 ML IV PRN ×5 (03:57→22:36)
[2019-11-02 05:29] LABS: BASOPHILS % (AUTO) 0.2 % (0.0-2.0); EOSINOPHILS % (AUTO) 0.1 % (0.0-6.0); HEMATOCRIT 33 % (39-51); HEMOGLOBIN 10.7 g/dL (13.5-17.5); LYMPHOCYTES # (AUTO) 1.6 /CMM (0.8-4.8); LYMPHOCYTES % (AUTO) 6.5 % (20.0-44.0); MEAN CORPUSCULAR HGB CONC 33 g/dl (31.0-36.0); MEAN CORPUSCULAR VOLUME 98 fL (80-96); MONOCYTES # (AUTO) 2.9 /CMM (0.1-1.30); MONOCYTES % (AUTO) 11.7 % (2.0-12.0); NEUTROPHILS # (AUTO) 20.5 /CMM (1.8-8.9); NEUTROPHILS % (AUTO) 81.5 % (43.0-81.0); PLATELET COUNT (AUTO) 62 /CMM (150-450); RED BLOOD CELL COUNT(AUTO) 3.34 MIL/uL (4.5-6.0); WHITE BLOOD COUNT (AUTO) 25.1 K/uL (4.3-11.0)
[2019-11-02 05:48] LABS: CALCIUM, SERUM 7.5 mg/dL (8.5-10.1); CREATININE 2.2 mg/dL (0.6-1.3); MAGNESIUM 2.3 mg/dL (1.8-2.4); PHOSPHORUS 6.6 mg/dL (2.5-4.9); POTASSIUM 3.4 mmol/L (3.5-5.1)
[2019-11-02] MEDS: VALPROATE 500 MG in IV D5W 100 ML IV SCH ×3 (06:05→20:49)
[2019-11-02] MEDS: BLOOD SUGAR DIAGNOSTIC 1 EACH STRIP IN SCH ×3 (06:15→17:12)
[2019-11-02 06:20] LABS: BAND % (MANUAL) 7 % (0.0-5.0); LYMPHOCYTES % (MANUAL) 9 % (16-48); MONOCYTES % (MANUAL) 9 % (0-11.0); NEUTROPHILS % (MANUAL) 75 (42-76)
[2019-11-02] MEDS ORDERED: TPN BAG #16 IV PRN ×24 (08:00→08:48)
[2019-11-02] MEDS: BICALUTAMIDE 50 MG TABLET GT SCH (09:06)
[2019-11-02] MEDS: CALCIUM CARB 250MG /VITAMIN D 1 UDTAB GT SCH (09:07)
[2019-11-02] MEDS: CHLORHEXIDINE GLUCONATE 15 ML UDC MM SCH ×2 (09:07→20:50)
[2019-11-02] MEDS: ACIDOPHILUS/BULGARICUS 1 EACH TAB.CHEW GT SCH ×3 (09:07→16:55)
[2019-11-02] MEDS: PROSOURCE / PROSTAT (PYXIS) 30 ML UDC GT SCH (09:07)
[2019-11-02] MEDS: ZINC SULFATE 220 MG CAPSULE GT SCH (09:08)
[2019-11-02] MEDS: PANTOPRAZOLE 40 MG VIAL IV SCH ×2 (09:08→17:11)
[2019-11-02] MEDS: MULTIVIT W/MINERALS 1 TAB TABLET GT SCH (09:08)
[2019-11-02] MEDS: ASCORBIC ACID 500 MG TABLET GT SCH (09:08)
[2019-11-02] MEDS: HYDROCORTISONE SOD SUCCINATE 100 MG/2 ML VIAL IV SCH (09:08)
[2019-11-02] MEDS: HYDROGEL DRESSING 90 GM TUBE TP SCH (09:09)
[2019-11-02] MEDS: DAKINS QUARTER STRENGTH (0.125%) 480 ML BOTTLE TOP SCH (09:10)
[2019-11-02] MEDS ORDERED: VASOPRESSIN INJ 50 UNIT in IV D5W 497.5 ML IV PRN (10:00)
[2019-11-02] MEDS: NOREPINEPHRINE 16 MG in IV D5W 500 ML IV PRN ×2 (11:04→18:19)
[2019-11-02] MEDS: MEROPENEM 500 MG in IV NS 0.9% 50 ML IV SCH ×2 (11:05→22:06)
[2019-11-02] MEDS: FAT EMULSION 20% 500 ML in PREMIX 1 EA IV SCH (13:54)
[2019-11-02 15:14] LABS: HEMOGLOBIN 10.9 g/dL (13.5-17.5)
[2019-11-02] MEDS: EPOETIN ALFA (4000 UNIT) 4,000 UNIT/ML VIAL SQ SCH (15:20)
[2019-11-02 15:38] LABS: CALCIUM, SERUM 7.4 mg/dL (8.5-10.1); CREATININE 2.4 mg/dL (0.6-1.3); POTASSIUM 3.7 mmol/L (3.5-5.1)
[2019-11-02] MEDS: INSULIN REGULAR, HUMAN 100 UNIT/ML 3 ML VIAL SQ PRN (18:05)
[2019-11-02] MEDS: MICAFUNGIN SODIUM 100 MG in IV NS 0.9% 100 ML IV SCH (20:49)
[2019-11-02] MEDS: TAMSULOSIN 0.4 MG CAP.SR.24H GT SCH (21:00)
[2019-11-02] MEDS ORDERED: TPN BAG #17 IV PRN ×5 (22:00)
[2019-11-02] MEDS: INSULIN GLARGINE, 100 UNIT/ML CARTRIDGE SQ SCH (22:26)
[2019-11-03] VITALS (97 sets, daily range): BP systolic 77–139; BP diastolic 45–81
[2019-11-03] MEDS: BLOOD SUGAR DIAGNOSTIC 1 EACH STRIP IN SCH ×5 (00:42→23:56)
[2019-11-03] MEDS: INSULIN REGULAR, HUMAN 100 UNIT/ML 3 ML VIAL SQ PRN ×4 (00:45→17:18)
[2019-11-03] MEDS: METRONIDAZOLE 500MG/ NS 100ML 500 MG in PREMIX 1 EA IV SCH ×3 (00:48→16:09)
[2019-11-03] MEDS: ALBUTEROL FS 2.5 MG/0.5 ML VIAL.NEB NEB SCH ×4 (01:33→20:03)
[2019-11-03] MEDS: IPRATROPIUM NEB FS 0.5 MG/2.5 ML AMPUL.NEB NEB SCH ×4 (01:33→20:03)
[2019-11-03] MEDS: NOREPINEPHRINE 16 MG in IV D5W 500 ML IV PRN ×3 (01:57→22:09)
[2019-11-03] MEDS: MORPHINE SULFATE INJ 2 MG/ML DISP.SYRIN IVP PRN (02:07)
[2019-11-03] MEDS: LORAZEPAM INJ 2 MG/ML VIAL IV PRN (03:13)
[2019-11-03] MEDS: PHENYLEPHRINE 80 MG in IV D5W 250 ML IV PRN ×5 (03:17→21:04)
[2019-11-03 04:34] LABS: BASOPHILS # (AUTO) 0.1 /CMM (0.0-0.2); BASOPHILS % (AUTO) 0.3 % (0.0-2.0); EOSINOPHILS % (AUTO) 0.1 % (0.0-6.0); HEMATOCRIT 34 % (39-51); HEMOGLOBIN 11.5 g/dL (13.5-17.5); LYMPHOCYTES # (AUTO) 1.7 /CMM (0.8-4.8); MEAN CORPUSCULAR HGB CONC 34 g/dl (31.0-36.0); MEAN CORPUSCULAR VOLUME 99 fL (80-96); MONOCYTES # (AUTO) 1.1 /CMM (0.1-1.30); MONOCYTES % (AUTO) 3.2 % (2.0-12.0); NEUTROPHILS # (AUTO) 30.9 /CMM (1.8-8.9); NEUTROPHILS % (AUTO) 91.4 % (43.0-81.0); PLATELET COUNT (AUTO) 94 /CMM (150-450); RED BLOOD CELL COUNT(AUTO) 3.39 MIL/uL (4.5-6.0)
[2019-11-03 05:07] LABS: CALCIUM, SERUM 7.3 mg/dL (8.5-10.1); CREATININE 2.3 mg/dL (0.6-1.3); MAGNESIUM 2.3 mg/dL (1.8-2.4); PHOSPHORUS 6.7 mg/dL (2.5-4.9); POTASSIUM 3.5 mmol/L (3.5-5.1)
[2019-11-03 05:15] LABS: WHITE BLOOD COUNT (AUTO) 33.7 K/uL (4.3-11.0)
[2019-11-03 05:44] LABS: BAND % (MANUAL) 19 % (0.0-5.0); LYMPHOCYTES % (MANUAL) 4 % (16-48); MONOCYTES % (MANUAL) 4 % (0-11.0); NEUTROPHILS % (MANUAL) 73 (42-76)
[2019-11-03] MEDS: VALPROATE 500 MG in IV D5W 100 ML IV SCH ×3 (05:54→21:05)
[2019-11-03] MEDS ORDERED: METOPROLOL TARTRATE INJ 5 MG/5 ML AMPUL IVP PRN (06:00)
[2019-11-03] MEDS: PROSOURCE / PROSTAT (PYXIS) 30 ML UDC GT SCH (08:35)
[2019-11-03] MEDS: MULTIVIT W/MINERALS 1 TAB TABLET GT SCH (08:35)
[2019-11-03] MEDS: CALCIUM CARB 250MG /VITAMIN D 1 UDTAB GT SCH (08:35)
[2019-11-03] MEDS: BICALUTAMIDE 50 MG TABLET GT SCH (08:35)
[2019-11-03] MEDS: ACIDOPHILUS/BULGARICUS 1 EACH TAB.CHEW GT SCH ×3 (08:35→16:08)
[2019-11-03] MEDS: ASCORBIC ACID 500 MG TABLET GT SCH (08:36)
[2019-11-03] MEDS: ZINC SULFATE 220 MG CAPSULE GT SCH (08:36)
[2019-11-03] MEDS: CHLORHEXIDINE GLUCONATE 15 ML UDC MM SCH ×2 (08:40→21:19)
[2019-11-03] MEDS: HYDROCORTISONE SOD SUCCINATE 100 MG/2 ML VIAL IV SCH ×3 (08:40→16:08)
[2019-11-03] MEDS: PANTOPRAZOLE 40 MG VIAL IV SCH ×2 (08:40→16:08)
[2019-11-03] MEDS: DAKINS QUARTER STRENGTH (0.125%) 480 ML BOTTLE TOP SCH (08:41)
[2019-11-03] MEDS: HYDROGEL DRESSING 90 GM TUBE TP SCH (08:41)
[2019-11-03] MEDS ORDERED: VANCOMYCIN 0.75 GM in IV D5W 250 ML IV SCH (09:00)
[2019-11-03] MEDS ORDERED: IV Sodium Chloride 3% 500 ML 500 ML IV SCH (10:00)
[2019-11-03] MEDS: MEROPENEM 500 MG in IV NS 0.9% 50 ML IV SCH ×2 (11:25→23:00)
[2019-11-03] MEDS ORDERED: TPN BAG #18 IV PRN ×8 (15:00)
[2019-11-03 15:14] LABS: URINE SODIUM, RANDOM 45 mmol/l (40-220)
[2019-11-03 15:57] LABS: OSMOLALITY,URINE 270 mOS/kg (340-1090)
[2019-11-03 16:28] LABS: CALCIUM, SERUM 7.2 mg/dL (8.5-10.1); CREATININE 2.4 mg/dL (0.6-1.3); POTASSIUM 3.4 mmol/L (3.5-5.1)
[2019-11-03 17:07] LABS: HEMOGLOBIN 10.7 g/dL (13.5-17.5)
[2019-11-03] MEDS: MICAFUNGIN SODIUM 100 MG in IV NS 0.9% 100 ML IV SCH (20:01)
[2019-11-03] MEDS: TAMSULOSIN 0.4 MG CAP.SR.24H GT SCH (22:00)
[2019-11-03] MEDS: INSULIN GLARGINE, 100 UNIT/ML CARTRIDGE SQ SCH (22:21)
[2019-11-04] VITALS (95 sets, daily range): BP systolic 78–131; BP diastolic 43–80
[2019-11-04] MEDS: INSULIN REGULAR, HUMAN 100 UNIT/ML 3 ML VIAL SQ PRN ×4 (00:01→17:22)
[2019-11-04] MEDS: METRONIDAZOLE 500MG/ NS 100ML 500 MG in PREMIX 1 EA IV SCH ×3 (01:00→16:32)
[2019-11-04] MEDS: ALBUTEROL FS 2.5 MG/0.5 ML VIAL.NEB NEB SCH ×5 (01:06→19:43)
[2019-11-04] MEDS: IPRATROPIUM NEB FS 0.5 MG/2.5 ML AMPUL.NEB NEB SCH ×4 (01:06→19:43)
[2019-11-04] MEDS: PHENYLEPHRINE 80 MG in IV D5W 250 ML IV PRN ×6 (01:19→23:39)
[2019-11-04] MEDS ORDERED: TPN BAG #19 IV PRN ×5 (04:00)
[2019-11-04 04:30] LABS: BASOPHILS # (AUTO) 0.1 /CMM (0.0-0.2); BASOPHILS % (AUTO) 0.3 % (0.0-2.0); EOSINOPHILS % (AUTO) 0.1 % (0.0-6.0); HEMATOCRIT 32 % (39-51); HEMOGLOBIN 10.3 g/dL (13.5-17.5); LYMPHOCYTES # (AUTO) 1.2 /CMM (0.8-4.8); LYMPHOCYTES % (AUTO) 2.9 % (20.0-44.0); MEAN CORPUSCULAR HGB CONC 32 g/dl (31.0-36.0); MEAN CORPUSCULAR VOLUME 99 fL (80-96); MONOCYTES % (AUTO) 2.4 % (2.0-12.0); NEUTROPHILS # (AUTO) 40.2 /CMM (1.8-8.9); NEUTROPHILS % (AUTO) 94.3 % (43.0-81.0); PLATELET COUNT (AUTO) 71 /CMM (150-450); RED BLOOD CELL COUNT(AUTO) 3.27 MIL/uL (4.5-6.0)
[2019-11-04 04:49] LABS: BILIRUBIN,TOTAL 1.9 mg/dL (0.2-1.0); CALCIUM, SERUM 7.4 mg/dL (8.5-10.1); CREATININE 2.4 mg/dL (0.6-1.3); PHOSPHORUS 6.4 mg/dL (2.5-4.9); POTASSIUM 3.7 mmol/L (3.5-5.1); TOTAL PROTEIN, SERUM 4.6 g/dL (6.4-8.2)
[2019-11-04 04:52] LABS: WHITE BLOOD COUNT (AUTO) 42.6 K/uL (4.3-11.0)
[2019-11-04] MEDS: VALPROATE 500 MG in IV D5W 100 ML IV SCH ×3 (05:03→21:16)
[2019-11-04 05:19] LABS: ALBUMIN 0.6 g/dL (3.4-5.0)
[2019-11-04] MEDS ORDERED: NOREPINEPHRINE 4 MG/4 ML AMPUL IV ONE (05:27)
[2019-11-04 05:58] LABS: BAND % (MANUAL) 26 % (0.0-5.0); LYMPHOCYTES % (MANUAL) 2 % (16-48); MONOCYTES % (MANUAL) 5 % (0-11.0)
[2019-11-04 05:59] LABS: NEUTROPHILS % (MANUAL) 67 (42-76)
[2019-11-04] MEDS: NOREPINEPHRINE 16 MG in IV D5W 500 ML IV PRN ×4 (06:05→22:36)
[2019-11-04] MEDS: BLOOD SUGAR DIAGNOSTIC 1 EACH STRIP IN SCH ×3 (06:06→17:20)
[2019-11-04] MEDS ORDERED: IV Sodium Chloride 3% 500 ML 500 ML IV ONE ×2 (07:30→19:30)
[2019-11-04] MEDS: PROSOURCE / PROSTAT (PYXIS) 30 ML UDC GT SCH (08:39)
[2019-11-04] MEDS: ACIDOPHILUS/BULGARICUS 1 EACH TAB.CHEW GT SCH ×3 (08:39→16:28)
[2019-11-04] MEDS: CALCIUM CARB 250MG /VITAMIN D 1 UDTAB GT SCH (08:39)
[2019-11-04] MEDS: BICALUTAMIDE 50 MG TABLET GT SCH (08:39)
[2019-11-04] MEDS: ZINC SULFATE 220 MG CAPSULE GT SCH (08:40)
[2019-11-04] MEDS: ASCORBIC ACID 500 MG TABLET GT SCH (08:40)
[2019-11-04] MEDS: MULTIVIT W/MINERALS 1 TAB TABLET GT SCH (08:40)
[2019-11-04] MEDS: HYDROCORTISONE SOD SUCCINATE 100 MG/2 ML VIAL IV SCH ×3 (08:50→16:32)
[2019-11-04] MEDS: CHLORHEXIDINE GLUCONATE 15 ML UDC MM SCH ×2 (08:50→21:46)
[2019-11-04] MEDS: HYDROGEL DRESSING 90 GM TUBE TP SCH (08:50)
[2019-11-04] MEDS: DAKINS QUARTER STRENGTH (0.125%) 480 ML BOTTLE TOP SCH (08:50)
[2019-11-04] MEDS: PANTOPRAZOLE 40 MG VIAL IV SCH ×2 (08:50→16:32)
[2019-11-04] MEDS: VASOPRESSIN INJ 50 UNIT in IV D5W 497.5 ML IV PRN (09:11)
[2019-11-04] MEDS: MEROPENEM 500 MG in IV NS 0.9% 50 ML IV SCH ×2 (10:00→23:40)
[2019-11-04 13:05] LABS: CALCIUM, SERUM 7.1 mg/dL (8.5-10.1); CREATININE 2.5 mg/dL (0.6-1.3); POTASSIUM 3.7 mmol/L (3.5-5.1)
[2019-11-04] MEDS: FAT EMULSION 20% 500 ML in PREMIX 1 EA IV SCH (13:57)
[2019-11-04] MEDS ORDERED: TPN BAG #20 IV PRN ×8 (14:00)
[2019-11-04] MEDS: EPOETIN ALFA (4000 UNIT) 4,000 UNIT/ML VIAL SQ SCH (16:31)
[2019-11-04 17:08] LABS: CALCIUM, SERUM 6.1 mg/dL (8.5-10.1); CREATININE 2.4 mg/dL (0.6-1.3); POTASSIUM 3.7 mmol/L (3.5-5.1)
[2019-11-04] MEDS: MICAFUNGIN SODIUM 100 MG in IV NS 0.9% 100 ML IV SCH (20:12)
[2019-11-04] MEDS: TAMSULOSIN 0.4 MG CAP.SR.24H GT SCH (21:44)
[2019-11-04] MEDS: INSULIN GLARGINE, 100 UNIT/ML CARTRIDGE SQ SCH (22:49)
[2019-11-05] VITALS (69 sets, daily range): BP systolic 85–123; BP diastolic 24–106
[2019-11-05] MEDS: METRONIDAZOLE 500MG/ NS 100ML 500 MG in PREMIX 1 EA IV SCH ×3 (00:07→16:21)
[2019-11-05] MEDS: INSULIN REGULAR, HUMAN 100 UNIT/ML 3 ML VIAL SQ PRN ×3 (00:11→12:31)
[2019-11-05] MEDS: BLOOD SUGAR DIAGNOSTIC 1 EACH STRIP IN SCH ×3 (00:12→11:36)
[2019-11-05] MEDS: IPRATROPIUM NEB FS 0.5 MG/2.5 ML AMPUL.NEB NEB SCH ×3 (01:19→13:22)
[2019-11-05] MEDS: ALBUTEROL FS 2.5 MG/0.5 ML VIAL.NEB NEB SCH ×3 (01:20→13:22)
[2019-11-05] MEDS ORDERED: TPN BAG #21 IV PRN ×5 (04:00)
[2019-11-05] MEDS: PHENYLEPHRINE 80 MG in IV D5W 250 ML IV PRN ×3 (04:05→12:28)
[2019-11-05] MEDS: VASOPRESSIN INJ 50 UNIT in IV D5W 497.5 ML IV PRN (04:44)
[2019-11-05] MEDS: NOREPINEPHRINE 16 MG in IV D5W 500 ML IV PRN ×2 (04:45→11:30)
[2019-11-05 04:46] LABS: CALCIUM, SERUM 6.8 mg/dL (8.5-10.1); CREATININE 2.5 mg/dL (0.6-1.3); MAGNESIUM 1.8 mg/dL (1.8-2.4)
[2019-11-05] MEDS: VALPROATE 500 MG in IV D5W 100 ML IV SCH ×2 (04:46→12:28)
[2019-11-05] MEDS: CHLORHEXIDINE GLUCONATE 15 ML UDC MM SCH (08:15)
[2019-11-05] MEDS: CALCIUM CARB 250MG /VITAMIN D 1 UDTAB GT SCH (08:16)
[2019-11-05] MEDS: HYDROCORTISONE SOD SUCCINATE 100 MG/2 ML VIAL IV SCH ×3 (08:16→16:21)
[2019-11-05] MEDS: BICALUTAMIDE 50 MG TABLET GT SCH (08:16)
[2019-11-05] MEDS: ASCORBIC ACID 500 MG TABLET GT SCH (08:16)
[2019-11-05] MEDS: ACIDOPHILUS/BULGARICUS 1 EACH TAB.CHEW GT SCH ×3 (08:16→16:19)
[2019-11-05] MEDS: MULTIVIT W/MINERALS 1 TAB TABLET GT SCH (08:16)
[2019-11-05] MEDS: ZINC SULFATE 220 MG CAPSULE GT SCH (08:16)
[2019-11-05] MEDS: PANTOPRAZOLE 40 MG VIAL IV SCH ×2 (08:16→16:21)
[2019-11-05] MEDS: PROSOURCE / PROSTAT (PYXIS) 30 ML UDC GT SCH (08:16)
[2019-11-05] MEDS: DAKINS QUARTER STRENGTH (0.125%) 480 ML BOTTLE TOP SCH (08:17)
[2019-11-05] MEDS: HYDROGEL DRESSING 90 GM TUBE TP SCH (08:17)
[2019-11-05] MEDS ORDERED: IV Sodium Chloride 3% 500 ML 500 ML IV ONE (09:00)
[2019-11-05] MEDS: MEROPENEM 500 MG in IV NS 0.9% 50 ML IV SCH (10:05)
[2019-11-05] MEDS ORDERED: TPN BAG #22 IV PRN ×8 (11:00)
[2019-11-05] MEDS ORDERED: TPN BAG #23 IV PRN ×6 (11:00)
[2019-11-05 15:52] LABS: HEMOGLOBIN 5.5 g/dL (13.5-17.5)
[2019-11-05 16:00] LABS: CALCIUM, SERUM 7.1 mg/dL (8.5-10.1); CREATININE 2.5 mg/dL (0.6-1.3); POTASSIUM 4.9 mmol/L (3.5-5.1)
[2019-11-05] MEDS ORDERED: HYDROCORTISONE SOD SUCCINATE 100 MG/2 ML VIAL IV SCH (17:00)
[2019-11-05] MEDS ORDERED: EPINEPHRINE (1:10,000) SYRINGE 1 MG/10 ML DISP.SYRIN IVP ONE (17:06)
[2019-11-05] MEDS ORDERED: VANCOMYCIN 0.75 GM in IV D5W 250 ML IV SCH (21:00)
== END 2019-11-05 17:07 | disposition expired | DRG 720 ==
LOC: ER 19:48 → ICU 22:48 → TELE1 10-20 16:37 → ICU 10-25 08:00
PROVIDERS: ADMIT Nurse Practitioner Acute Care; ATTEND Nurse Practitioner Acute Care
PROC: 02HV33Z Insertion of Infusion Device into Superior Vena Cava, Percutaneous Approach (ICD-10-PCS; principal; 2019-10-15)
PROC: B548ZZA Ultrasonography of Superior Vena Cava, Guidance (ICD-10-PCS; principal; 2019-10-15)
PROC: 5A1955Z Respiratory Ventilation, Greater than 96 Consecutive Hours (ICD-10-PCS; principal; 2019-10-15)
PROC: 0DJ08ZZ Inspection of Upper Intestinal Tract, Via Natural or Artificial Opening Endoscopic (ICD-10-PCS; 2019-10-25)
PROC: 30233N1 Transfusion of Nonautologous Red Blood Cells into Peripheral Vein, Percutaneous Approach (ICD-10-PCS; 2019-10-25)
PROC: 0DJ08ZZ Inspection of Upper Intestinal Tract, Via Natural or Artificial Opening Endoscopic (ICD-10-PCS; 2019-10-27)
PROC: 5A12012 Performance of Cardiac Output, Single, Manual (ICD-10-PCS; 2019-11-05)
DX: A41.9 Sepsis, unspecified organism (principal); N17.0 Acute kidney failure with tubular necrosis; R65.21 Severe sepsis with septic shock; E43 Unspecified severe protein-calorie malnutrition; G93.40 Encephalopathy, unspecified; Z99.11 Dependence on respirator [ventilator] status; J18.9 Pneumonia, unspecified organism; J90 Pleural effusion, not elsewhere classified; K31.6 Fistula of stomach and duodenum; R53.2 Functional quadriplegia; S31.001A Unspecified open wound of lower back and pelvis with penetration into retroperitoneum, initial encounter; Z93.0 Tracheostomy status; D68.69 Other thrombophilia; E87.0 Hyperosmolality and hypernatremia; N39.0 Urinary tract infection, site not specified; E87.2 Acidosis; E66.01 Morbid (severe) obesity due to excess calories; E27.40 Unspecified adrenocortical insufficiency; D62 Acute posthemorrhagic anemia; E87.5 Hyperkalemia; Z74.01 Bed confinement status; Z87.440 Personal history of urinary (tract) infections; Z93.6 Other artificial openings of urinary tract status; Z79.4 Long term (current) use of insulin; R13.10 Dysphagia, unspecified; D63.8 Anemia in other chronic diseases classified elsewhere; E88.09 Other disorders of plasma-protein metabolism, not elsewhere classified; Z68.37 Body mass index [BMI] 37.0-37.9, adult; M24.571 Contracture, right ankle; M24.572 Contracture, left ankle; E11.51 Type 2 diabetes mellitus with diabetic peripheral angiopathy without gangrene; L97.519 Non-pressure chronic ulcer of other part of right foot with unspecified severity; I70.235 Atherosclerosis of native arteries of right leg with ulceration of other part of foot; S01.00XA Unspecified open wound of scalp, initial encounter; X58.XXXA Exposure to other specified factors, initial encounter; Y93.9 Activity, unspecified; G40.909 Epilepsy, unspecified, not intractable, without status epilepticus; R31.9 Hematuria, unspecified; B96.5 Pseudomonas (aeruginosa) (mallei) (pseudomallei) as the cause of diseases classified elsewhere; B96.1 Klebsiella pneumoniae [K. pneumoniae] as the cause of diseases classified elsewhere; Z90.49 Acquired absence of other specified parts of digestive tract; K92.2 Gastrointestinal hemorrhage, unspecified; S91.301A Unspecified open wound, right foot, initial encounter; Y92.129 Unspecified place in nursing home as the place of occurrence of the external cause; C79.51 Secondary malignant neoplasm of bone; C78.00 Secondary malignant neoplasm of unspecified lung; C78.7 Secondary malignant neoplasm of liver and intrahepatic bile duct; R40.3 Persistent vegetative state; C61 Malignant neoplasm of prostate; E11.22 Type 2 diabetes mellitus with diabetic chronic kidney disease; I12.9 Hypertensive chronic kidney disease with stage 1 through stage 4 chronic kidney disease, or unspecified chronic kidney disease; K29.70 Gastritis, unspecified, without bleeding; J96.10 Chronic respiratory failure, unspecified whether with hypoxia or hypercapnia; N18.9 Chronic kidney disease, unspecified; L98.8 Other specified disorders of the skin and subcutaneous tissue; Y83.8 Other surgical procedures as the cause of abnormal reaction of the patient, or of later complication, without mention of misadventure at the time of the procedure; Y73.8 Miscellaneous gastroenterology and urology devices associated with adverse incidents, not elsewhere classified; K94.23 Gastrostomy malfunction
CPT/HCPCS: 31720; 36415; 36569; 36600; 71045-TC; 76770-TC; 80048-TC; 80053-TC; 80061-TC; 80076-TC; 80202-TC; 81000-TC; 82533; 82803-TC; 82962-TC; 83605-TC; 83735-TC; 83935-TC; 84100-TC; 84300-TC; 84443-TC; 84478-TC; 84484-TC; 85025-TC; 85027-TC; 85610-TC; 85730-TC; 86850-TC; 86921-TC; 87040-TC; 87070-TC; 87081-TC; 87086-TC; 87186-TC; 94002-TC; 94003-TC; 94640-TC; 94760-TC; 94761-TC; 94762-TC; 94799-TC; 99082-TC; A4216; A6248; A6253; A6403; A7526; C1751; C9113; G0378; J0171; J0885; J1644; J1720; J1815; J1956; J2060; J2185; J2248; J2270; J2370; J2543; J2704; J3370; J3475; J3480; J3490; J7030; J7040; J7042; J7050; J7060; J7070; P9016-BL